=== PATIENT | male | born 1970 | race Caucasian/White ===

== ENCOUNTER → 2018-04-08 14:27 | Outpatient (CLI) | payer OTHER, SELFPAY ==
[2018-04-07 13:42] VITALS: BMI 32.7
== END ==
PROVIDERS: Family Provider Family Medicine; PCP Family Medicine; Referring Provider Physician Assistant; Visit Provider Physician Assistant
DX: J02.9 Acute pharyngitis, unspecified (principal)
CPT/HCPCS: 87081

== ENCOUNTER 2019-05-03 09:31 | Emergency (ER) | payer OTHER, SELFPAY ==
[2018-04-07 13:42] VITALS: BMI 32.7
[2019-05-03 09:32] VITALS: BP 128/79; PULSE 79; RESP 16; TEMP 36.7; O2SAT 95; BMI 30.7
--- NOTE | 2019-05-03 10:10 | EKG12_ITS ---
Test Reason : SYNCOPE Blood Pressure : / mmHG Vent. Rate : 067 BPM Atrial Rate : 067 BPM P-R Int : 182 ms QRS Dur : 074 ms QT Int : 366 ms P-R-T Axes : 038 044 020 degrees QTc Int : 386 ms Normal sinus rhythm Normal ECG Confirmed by SALAZAR SAMUELS, KELIN ([id number]), editor sound LURDES MCKENNA ([id number]) on 05/05/2019 12:21:27 PM Referred By: NOLBERTO Confirmed By:KELIN LINCOLN MD
[2019-05-03 10:19] LABS: Absolute Lymphocyte Count 1.44 X10^3/uL (0.83-4.51); Absolute Neutrophil Count 2.5 X10^3/uL (2.0-7.7); Basophil# 0.05 X10^3/uL; Basophil% 1.1 % (0-1); Eosinophil# 0.11 X10^3/uL; Eosinophils% 2.4 % (0-5); Hematocrit 44.9 % (40-54); Lymphocyte # 1.44 X10^3/ul (4.0); Lymphocyte % 32.1 % (19-41); Mean Corp Hgb Conc 33.4 g/dL (32-36); Mean Corpuscular Hgb 28.4 pg (27.0-32.0); Mean Corpuscular Volume 84.9 fL (80-94); Mean Platelet Vol. 10.2 fl (6.2-12.0); Monocyte# 0.39 X10^3/uL; Monocyte% 8.7 % (0-10); NRBC Flagged by Analyzer 0 % (0-5); Neutrophil # 2.48 X10^3/uL (2.7-7.7); Neutrophil % 55.3 % (47-70); Platelet Count 178 K/mm3 (150-450); RBC Distribution Width CV 12.5 % (11.6-14.6); RBC Distribution Width SD 38.7 fl (35.1-43.9); Red Blood Count 5.29 M/mm3 (4.6-6.2); White Blood Count 4.5 K/mm3 (4.4-11.0)
[2019-05-03] MEDS: 0.9% Normal Saline 1,000 ML 1000 ML IV (10:19)
--- NOTE | 2019-05-03 10:22 | ED.DCSUM_ITS ---
History of Present Illness Chief Complaint: Syncope Informant: Patient Onset: Today Current Severity: - - Resolved Narrative: Patient reports 3 syncopal episodes this morning. 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 Patient states he was standing in the parlor and told 1 of his coworkers that he felt dizzy as if he may pass out. He states next thing he remembers is laying on the ground. Reportedly coworkers tried to sit him up 2 separate times and he passed out again. Patient denies having chest pain or palpitations. He did eat a small amount this morning. He denies any prior history of syncope. - Past Medical History (1) High cholesterol Status: Chronic (2) Vertigo Status: Resolved Past Medical History - Allergies and Home Meds Allergies/Adverse Reactions: Allergies No Known Allergies Allergy (Verified 05/03/19 09:31) Primary Care Physician: Erik Rodriguez MD [Primary Care Provider] - Prior records reviewed: Yes Smoking Status: Never smoker Review of Systems General: Denies: Chills, Fever Eyes: Denies: Visual changes - bilaterally ENT: Denies: Bilateral ear pain, Sore throat Cardiovascular: Denies: Chest pain, Palpitations, Heart racing Respiratory: Denies: Dyspnea, Cough Gastrointestinal: Denies: Abdominal pain, Nausea, Vomiting, Diarrhea Genitourinary: Denies: Dysuria Skin: Denies: Rash Neurological: Denies: Headache, Weakness, Parasthesia Hematologic: Denies: Easy bruising Allergy: Denies: Uticaria Physical Exam Vital Signs/Narrative: Vital Signs Temp Pulse Resp BP Pulse Ox 05/03/19 09:32 98.0 F 79 16 128/79 H 95 Inital Vital Signs reviewed: Yes General: Well nourished, Well developed Head: Normocephalic ENT: Moist mucous membranes Neck: Supple, Nontender Cardiovascular: Regular rate, Regular rhythm Respiratory: No distress, CTA bilaterally Abdomen: Soft, Nontender, Normal bowel sounds Extremities: Nontender Skin: Normal color, No rash Neurological: Alert, Oriented x3, Normal Strength, Normal Sensation Psychological: Normal affect Diagnostic/Tx/Re-eval Laboratory Results 05/03/19 05/03/19 09:55 09:55 WBC 4.5 RBC 5.29 Hgb 15.0 Hct 44.9 MCV 84.9 MCH 28.4 MCHC 33.4 RDW Std Deviation 38.7 RDW Coeff of Arnol 12.5 Plt Count 178 MPV 10.2 Immature Gran % (Auto) 0.400 Neut % (Auto) 55.3 Lymph % (Auto) 32.1 [place] % (Auto) 8.7 Eos % (Auto) 2.4 Baso % (Auto) 1.1 H Absolute Neuts (auto) 2.5 Absolute Lymphs (auto) 1.44 Nucleated RBC % 0 Sodium 141 Potassium 4.0 Chloride 109 H Carbon Dioxide 27.0 Anion Gap 5 BUN 20 H Creatinine 0.94 Estim Creat Clear Calc 100.13 Est GFR (MDRD) Af Amer 108 Est GFR (MDRD) Non-Af 90 BUN/Creatinine Ratio 21.2 H Glucose 85 Calcium 9.3 Troponin I < 0.015 - EKG Initial EKG Interpretation: Sinus Rhythm - Sinus at 67 with no acute ischemia. - Medical Decision Making Patient is given IV fluids here. On repeat evaluation he is resting comfortably. He had no further lightheadedness or dizziness. Has had no ectopy noted on alarm security or surveillance monitor. Orthostatic vital signs will be obtained as long as these are unremarkable patient be discharged to home. He will follow his primary care physician. He is given return instructions. ED Disposition - Plan for ED Patient: Disposition: Home or Assisted Living Diagnosis: Syncope Instructions: SYNCOPE, Unk Cause Referrals: Erik Rodriguez MD [Primary Care Provider] - 3-5 Days
[2019-05-03 10:32] LABS: Anion Gap 5 (5-15); BUN 20 mg/dL (7-18); BUN/Creat Ratio 21.2 RATIO (10-20); Calcium,Total 9.3 mg/dL (8.5-10.1); Chloride 109 mmol/L (98-107); Creatinine, Serum 0.94 mg/dL (0.70-1.30); EST Glomerular Filtration Rate 90 mL/min (>60); Est Glom Filt Rate - Afr Amer 108 mL/min (>60); Estimated Creatinine Clearance 100.13 ml/min; Glucose 85 mg/dL (74-106); Sodium Level 141 mmol/L (136-145)
[2019-05-03 11:31] VITALS: BP 125/90; BP 126/90; BP 128/74; PULSE 54; PULSE 58; PULSE 77
[2019-05-03 12:24] VITALS: BP 120/85; PULSE 78; RESP 16; O2SAT 99
== END 2019-05-03 12:27 | disposition home or self-care (01) ==
PROVIDERS: Emergency Provider Emergency Medicine; PCP Family Medicine
DX: R55 Syncope and collapse (principal); E78.00 Pure hypercholesterolemia, unspecified; Z79.899 Other long term (current) drug therapy
CPT/HCPCS: 80048; 84484; 85025; 93005; 96360; 99285

== ENCOUNTER → 2019-09-29 10:08 | Outpatient (CLI) | payer OTHER, SELFPAY | PROVIDERS: PCP Family Medicine; Visit Provider Orthopaedic Surgery | DX: Z11.59 Encounter for screening for other viral diseases (principal) | CPT/HCPCS: 87635; G2023; U0003 ==

== ENCOUNTER 2020-08-26 11:00 | Outpatient (RCR) | payer OTHER, SELFPAY ==
--- NOTE | 2020-08-26 11:31 | HP.PTDCSUM ---
It has been my pleasure to treat SAL PADILLA referred by Dr. Erik Rodriguez MD, with the diagnosis of Right ankle pain for a total of 8 visit(s). Discharge Date: Please see the following information for a summary of their discharge status. Subjective: Pt reports no improvements at this time R ankle Pain Intensity (Out of 10): 8 % Improvement: 0 Objective/Function: R ankle pain 8/10. R ankle DF ROM 5 degrees. R ankle MMT: 5/5 throughout with exception to eversion= 4+/5. Pt is I with HEP Goal 1:: Increase R dorsiflexion by 8-10 degrees to aid with a normalized gait pattern. Goal Progress: Progressing Goal 2:: Decrease pain by 50% to aid with sleeping throughout the night. Goal Progress: Not Progressing Goal 3:: Decrease pain by 75% to aid with stair negotiation and ambulation. Goal Progress: Not Progressing Goal 4:: Increase R LE strength grossly by 1-2 muscle grades to aid with ADLs. Goal Progress: Goal Met Goal 5:: I with HEP. Goal Progress: Goal Met Plan: RTD secondary to lack of progress If there are questions or concerns regarding this patient's physical therapy, please feel free to call me at [phone]. Thank you for the referral of this patient. Sincerely, Angelo Tucker, PT, ATC
--- NOTE | 2020-08-26 11:31 | HP.PTEVAL ---
Patient's Visit Information SAL PADILLA is a 50 year old M referred to Physical Therapy by Dr. Erik Rodriguez MD with a diagnosis of Right ankle pain. Date of Evaluation: 08/04/20 Physical Therapist: Angelo Tucker, PT, ATC - Visit Plan Frequency: 2x /Week Duration: 4 Weeks Plan: RTD secondary to lack of progress - Subjective Pt. is coming to PT with a dx of R ankle pain from Dr. Rodriguez. He has a hx of n ankle fracture about 15 years ago as well as a R knee meniscus repair in Summer 2019; he twisted his R knee in November 2018 adn then [facility] surgery was in September of 2019. He has some trouble with R knee. He has 2 minor sprains of his R ankle within the past month. He rolled it once getting out of truck and the other was walking in between bryn. 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 When he rolled his ankle, he rolled it both times laterally.He did not have any PT on R knee post-operatively. He notes that over the past year he has become less active due to his surgery, ankle sprains, and COVID-19. He wants to get lose weight to improve his overall heatlh. If sittng all day he has less pain. He has pain when he first gets out of the car or when he first gets up in the morning. He describes his pain as a dull ache. Walking up and down stairs will aggrivate his pain. He gets woken up from sleep with pain. He has numbness and tingling that will go along the lateral portion of his foot. He has high arches and wears inserts but hasnt gotten a new pair since the origionals 15 years ago. - Pain R ankle Pain Intensity (Out of 10): 8 Pain Intensity Range: 0, 7 - Objective Neuro: Sensation slightly decreased on lateral aspect of R foot; patellar tendon reflex 1/3 bilaterally. MMT: Hip flex 4+/5 B; knee flex: 4+/5 R; 5/5 L; knee ext: 4+/5 R, L 5/5; L ankle DF: 5/5 R ankle DF: 4+/5; L inv: 5/5 R inv: 4+/5 L eversion: 5/5 R eversion: 4/5. ROM: L DF: 8 degrees R DF: -1 degrees L inversion: 41 degrees R inverison: 35 degrees L eversion: 11 degrees R eversion: 20 degrees. Girth: figure 8 measurement: L side is 59 cm; R side is 64.5 cm. Ambulation: 6/10 walking but no antalgic gait demonstrated. both feet are modersatly supinated with gait. Stairs: he was able to go up with reciprocol gait pattern with no UE support , he had increased pain 6/10 with descending stairs. - Goals Goal 1:: Increase R dorsiflexion by 8-10 degrees to aid with a normalized gait pattern. Goal Time Frame: 2-4 Weeks Goal 2:: Decrease pain by 50% to aid with sleeping throughout the night. Goal Time Frame: 2-4 Weeks Goal 3:: Decrease pain by 75% to aid with stair negotiation and ambulation. Goal Time Frame: 4-6 Weeks Goal 4:: Increase R LE strength grossly by 1-2 muscle grades to aid with ADLs. Goal Time Frame: 4-6 Weeks Goal 5:: I with HEP. Goal Time Frame: 4-6 Weeks - Rehabilitation Potential Physical Therapy Diagnosis: Pain, weakness and decreased ROM secondary to R ankle pain. He appears to have a minor R lateral ankle sprain with moderately increased swelling and inflammation. Rehabilitation Potential: Good - Anticipated Interventions Thank you for the opportunity to evaluate your patient. For Medicare and Medicare HMO plans, please review the plan of care and approve it. It will need to be FAXED BACK to us at [phone] for Medicare purposes. For Medicare only, by signing this I certify the plan of care. Please let me know if there are questions or concerns regarding this plan of care. Physician Signature: Date:
== END 2020-08-26 19:00 | disposition home or self-care (01) ==
LOC: PT 11:00
PROVIDERS: PCP Family Medicine; Referring Provider Family Medicine; Visit Provider Family Medicine
DX: M25.571 Pain in right ankle and joints of right foot (principal)
CPT/HCPCS: 97035; 97110; 97161; 97164

== ENCOUNTER → 2020-10-06 17:47 | Outpatient (CLI) | payer OTHER, SELFPAY ==
--- NOTE | 2020-10-06 17:58 | MRI_ITS ---
STUDY: MRI RIGHT ANKLE WITHOUT CONTRAST REASON FOR EXAM: Lateral right ankle pain for 3 months, right ankle/foot swelling, numbness. TECHNIQUE: Standardized fat and water weighted pulse sequences were obtained in all 3 orthogonal planes. COMPARISON: None. FINDINGS: There is edema in the lateral subcutis adipose space. There is fluid in the retromalleolar and submalleolar posterior tibialis and flexor digitorum longus tendon sheaths (inversion recovery sagittal images 17-19). The posterior tibialis and flexor digitorum longus tendons are morphologically normal. There is fluid in the flexor hallucis longus tendon sheath proximal and distal to the sustentaculum mariam (inversion recovery sagittal images 14, 15). There is fluid with septations in the retromalleolar and submalleolar peroneal tendon sheath (inversion recovery sagittal images 3-8) suggestive of sclerosing tenosynovitis with reactive bone edema in the lateral calcaneus including the peroneal tubercle (T2 coronal images 12-15). There is also fluid in the distal peroneus longus tendon sheath (T2 coronal images 22-29). There is tendinosis of the peroneus longus and brevis tendons with longitudinal splits of the perimalleolar peroneal tendons (T2 axial images 16-21). Normal tibialis anterior tendon. Normal extensor hallucis longus tendon. Normal extensor digitorum longus tendons. Normal Achilles tendon and teno-osseous insertion. Normal plantar fascia. Normal plantar calcaneal tubercles. Normal intrinsic muscles of the rearfoot. Normal distal tibiofibular syndesmotic ligamentous complex. Normal lateral ligamentous complex. Normal subtalar ligaments and sinus tarsi. Normal deltoid ligamentous complexes. Normal plantar calcaneonavicular (spring) ligament. Normal tibiotalar articulation. Normal talar dome. Normal subtalar articulations. Normal talonavicular articulation. Normal calcaneocuboid articulation. Normal navicular-cuneiform articulations. 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 Tenosynovitis of the flexor tendons. Electronically Signed: Ari Young MD at 9:41 EDT Tel , Service support ,
== END ==
PROVIDERS: PCP Family Medicine; Referring Provider Podiatrist; Visit Provider Podiatrist
DX: S96.811A Strain of other specified muscles and tendons at ankle and foot level, right foot, initial encounter (principal)
CPT/HCPCS: 73721

== ENCOUNTER → 2020-12-03 14:17 | Outpatient (CLI) | payer OTHER, SELFPAY ==
[2020-12-03 15:24] LABS: Absolute Lymphocyte Count 2.25 X10^3/uL (0.83-4.51); Absolute Neutrophil Count 3.7 X10^3/uL (2.0-7.7); Basophil# 0.07 X10^3/uL; Eosinophil# 0.15 X10^3/uL; Eosinophils% 2.2 % (0-5); Hematocrit 45.6 % (40-54); Hemoglobin 15.2 g/dL (13.0-16.5); Lymphocyte # 2.25 X10^3/ul (0.83-4.51); Lymphocyte % 33.3 % (19-41); Mean Corp Hgb Conc 33.3 g/dL (32-36); Mean Corpuscular Hgb 28.5 pg (27.0-32.0); Mean Corpuscular Volume 85.4 fL (80-94); Mean Platelet Vol. 11.3 fl (6.2-12.0); Monocyte% 8.9 % (0-10); NRBC Flagged by Analyzer 0 % (0-5); Neutrophil # 3.66 X10^3/uL (2.7-7.7); Neutrophil % 54.2 % (47-70); Platelet Count 219 K/mm3 (150-450); RBC Distribution Width CV 13.1 % (11.6-14.6); RBC Distribution Width SD 40.8 fl (35.1-43.9); Red Blood Count 5.34 M/mm3 (4.6-6.2); White Blood Count 6.8 K/mm3 (4.4-11.0)
[2020-12-03 16:01] LABS: ALB/GLOB Ratio 1.1 RATIO (0.9-2.4); AST(SGOT) 20 U/L (15-37); Alanine Aminotransfer ALT/SGPT 53 U/L (16-61); Albumin, Serum 3.9 g/dL (3.2-5.0); Alkaline Phosphatase 91 U/L (45-117); Anion Gap 7 (5-15); BUN 17 mg/dL (7-18); BUN/Creat Ratio 19.3 RATIO (10-20); Chloride 107 mmol/L (98-107); Creatinine, Serum 0.88 mg/dL (0.70-1.30); EST Glomerular Filtration Rate 96 mL/min (>60); Est Glom Filt Rate - Afr Amer 117 mL/min (>60); Globulin 3.6 g/dL (2.2-4.2); Glucose 90 mg/dL (74-106); Potassium 3.7 mmol/L (3.5-5.1); Protein, Total 7.5 g/dL (6.4-8.2); Sodium Level 139 mmol/L (136-145)
== END ==
PROVIDERS: PCP Family Medicine; Visit Provider Family Medicine
DX: Z01.818 Encounter for other preprocedural examination (principal)
CPT/HCPCS: 36415; 80053; 85025

== ENCOUNTER 2020-12-10 05:52 | Day surgery (SDC) | payer OTHER, SELFPAY ==
[2020-12-10] VITALS (12 sets, daily range): BP systolic 131–151; BP diastolic 71–97; PULSE 64–88; RESP 16; TEMP 35.6–36.6; O2SAT 94–99; BMI 33.5
[2020-12-10] MEDS: Lactated Ringers 1,000 ML 100 ML IV ×3 (06:27→11:30)
[2020-12-10] MEDS: Cefazolin 2 GM in 0.9% Normal Saline 100 ML IV (07:23)
--- NOTE | 2020-12-10 07:30 | RAD_ITS ---
STUDY: X-RAY - RIGHT FOOT CLINICAL: Male, 50 years old. FOOT PERONEAL TENDON REPAIR DEBRIDE, CALCANEOUS OSTEOTOMY,1ST METATARSAO OSTEOTOMY TECHNIQUE: 2 view(s) of the foot. COMPARISON: None. FINDINGS: 43 seconds of fluoroscopy of the right foot was utilized the operating room during foot surgery and 6 images are cemented for interpretation.. RAD/Foot 2 Views IMPRESSION: Fluoroscopy during surgery. Electronically Signed: Lorenzo Chun MD at 12:18 EDT Tel , Service support ,
--- NOTE | 2020-12-10 07:30 | TESH_PTH ---
PATIENT: SAL [place]AD[place]AL [place] [facility] [place][id number] AGE/SX: 50/M ROOM: RE12/10/[address]: Dr. Edmond Hutchinson DPM : [id number] BED: DIS: 12/10/2020 SPEC #: [id number] RECD: 12/10/20 13:51 STATUS: JOSE REHyun #: [id number] JEANNINE: 12/10/20 07:[address]: Edmond Hutchinson DEPT: SURGICAL PATHOLOGY RECD BY: Roberto Vela ENTERED: 12/14/20 09:02 SP TYPE: TENDON OTHR DR: Dr. Erik Rodriguez MD Tissues: Tendon and tendon sheath, NOS Procedures: Surgery Specimen Level III HEADER OPERATION: Peroneal tendon repair and debridement PRE-OP DIAGNOSIS: Peroneal tendon tear TISSUE SUBMITTED: Debrided peroneal tendon MICROSCOPIC DIAGNOSIS Debrided peroneal tendon: Reactive and reparative change. Fragments of bone and cartilage with no pathologic change. AM:am 12/15/20 MICROSCOPIC DESCRIPTION Slides are reviewed. GROSS DESCRIPTION Received is one container labeled with the patient name and designated Debrided peroneal tendon. The specimen consists multiple irregular fragment of light parker-white gritty soft tissue that measures 6 x 5 x 0.5cm. Menu Planner portions are submitted in one cassette./AM:am 12/14/20 TC:5 CPT: 75134
--- NOTE | 2020-12-10 07:32 | DCINST_ITS ---
Discharge Instructions Diet Discharge Diet: Light diet - advance as tolerated Activity Discharge Activity: May Not Drive and Use Crutches Weight Bearing Status: No weight bearing (No weightbearing right foot/ankle. Do not put weight on right foot or ankle.) Keep extremity elevated above heart level: Right Leg (Keep right foot elevated with pillows and pressure off of heel for at least 50 minutes of every hour.) Additional Activity Instructions:: Do gentle range of motion to knee and hip for a minute or two every hour to help with circulation. Dressing / Incision Call your doctor if your incision/area has: Continuous Slow Oozing, Sudden Increased Bleeding and Foul Smelling Discharge Call your doctor if you observe: Fever of 101 or Higher, Shortness of breath, Chest pain, Increased palpitations (irregular heartbeat), Calf discomfort and Uncontrolled pain Change Dressing in: leave in place till F/U Remove Dressing in: leave in place till F/U Cleanse incision/area with: Do not get Incision Wet Follow Up Care Please Follow Up With: Edmond Hutchinson DPM When: Follow up next week in office at [facility], call sooner if needed. Page Dr. Hutchinson over weekend if needed through [facility]: [phone] Test Results: Test results from this visit will be discussed in further detail at your follow-up appointment, if applicable. Discharge Plan Admission Attending Provider: Edmond Hutchinson Primary Care Provider: Erik Rodriguez Discharge Orders/Prescriptions Prescriptions: New Eliquis 2.5 mg tablet 2.5 mg PO Q12H Qty: 60 RF: 0 oxycodone-acetaminophen [Percocet] 5-325 mg tablet 1 - 2 tab PO Q6H PRN (Reason: pain) 5 Days Qty: 30 RF: 0 amoxicillin-pot clavulanate [Augmentin] 500-125 mg tablet 1 tab PO Q12H Qty: 14 RF: 0 Continued atorvastatin 20 MG tablet 20 mg PO QHS RF: 0 Referrals / Follow Up: Erik Rodriguez MD [Primary Care Provider] - Disposition Disposition (needs filled in before D/C Order can be placed): Home, Self Care
--- NOTE | 2020-12-10 11:24 | RAD_ITS ---
STUDY: X-RAY - RIGHT FOOT CLINICAL: Male, 50 years old. post op TECHNIQUE: 3 view(s) of the foot. COMPARISON: None. FINDINGS: Status post osteotomy of the posterior body of the calcaneus with fixation with 2 screws. Normal visualized subtalar, talonavicular, calcaneocuboid, tarsal and tarsometatarsal articulations. Status post osteotomy and fixation of the proximal shaft of the first metatarsal bone with a medial plate and screws. Normal metatarsophalangeal joint of the great toe. Normal tibial and fibular sesamoid bones. Normal interphalangeal joint of the great toe. Normal phalanges of the great toe. Normal second through fifth metatarsophalangeal joints. Normal interphalangeal joints and phalanges of the lesser toes. Fiberglass cast obscures soft tissue and bony detail. RAD/Foot min 3 Views IMPRESSION: Postsurgical changes. Electronically Signed: Lorenzo Chun MD at 12:19 EDT Tel , Service support ,
--- NOTE | 2020-12-10 11:24 | RAD_ITS ---
STUDY: X-RAY - RIGHT CALCANEUS REASON FOR EXAM: Male, 50 years old. post op TECHNIQUE: 2 view(s) of the calcaneus were obtained. COMPARISON: None. FINDINGS: Status post open reduction internal fixation of fracture or osteotomy of the posterior body of the calcaneus with 2 screws. RAD/Calcaneus min 2 Views IMPRESSION: Post surgical changes. Electronically Signed: Lorenzo Chun MD at 12:17 EDT Tel , Service support ,
--- NOTE | 2020-12-10 11:28 | PCM.OPRPT ---
Report of Operation Date of Procedure: 12/10/20 Pre-Operative Diagnosis: Peroneal tendinopathy with tear, right Pes cavus deformity, right Calcaneal varus deformity, right Plantarflexed 1st ray, right foot Post-Operative Diagnosis: Same Surgery/Procedure Performed:: 1. Peroneal tendon debridement and repair with tenodesis, right 2. Calcaneal osteotomy (Jean), right 3. 1st metatarsal osteotomy (dorsiflexory), right Surgeon: Edmond Hutchinson director of land acquisition: Dr. Bhat Type of Anesthesia: General and Local Specimen's removed: Debrided peroneal tendons, sent to pathology Estimated Blood Loss (mL): 70mL Description of Procedure: Indictions: This is a 50-year-old gentleman who has had chronic right lateral ankle pain despite nonsurgical treatment. Pain is along the peroneal tendons. MRI shows significant peroneal tendinopathy with tearing of the peroneus brevis tendon. He has significant anterior and posterior pes cavus deformity with calcaneal varus. This has really affected his activity level. He relates he is not able to be as active as he would like to be. He has elected to proceed with surgical intervention. We discussed the procedures in great detail, he agreed. All alternative options were reviewed with him as well. All of the risks and potential complications were discussed with him. The goals of the operative procedure were discussed with him as well. He expressed understanding and agreement. This was discussed with him at length on several occasions. He understands the goals, expectations as well as the risks and possible complications. The consent forms were reviewed with him and he freely signed them. No guarantees were given nor implied. No warranties were given. Patient was cleared for surgery from neurosurgery and medical standpoint. I did speak with his neurosurgery at [facility] team Nina Callahan CNP for Dr. Mae (patient with hx of brain aneurysm) and they have given the ok to proceed with this foot surgery and ok to proceed with post operative anticoagulation medication DVT prophylaxis Eliquis. Operative Procedure: The patient received and right lower extremity nerve block per the anesthesia team pre operatively. The patient was brought back into the operating room and was placed on to the operating room table in the supine position. A time-out was performed and the patient was properly identified and surgical plan was confirmed. The patient did receive antibiotic prophylaxis for this procedure, 2 g of intravenous cefazolin. The patient did receive general anesthesia. A well-padded pneumatic tourniquet was applied around the right thigh. The right lower extremity was scrubbed, prepped and draped in the usual aseptic fashion. Further attention was directed to the right foot. There was noted to be edema overlying the peroneal tendons, there was calcaneus varus, there was plantarflexed 1st ray and there was pes cavus deformity - which was rigid. The right foot was elevated for 3 minutes and the right pneumatic tourniquet on the thigh was inflated to 300 mmHg. Further attention was directed to the right foot and ankle. Calcaneal osteotomy: Attention was directed to the lateral calcaneus and a linear longitudinal skin incision was made in an oblique linear fashion overlying the lateral calcaneal wall from proximal posterior to distal anterior. Careful blunt dissection was completed through the subcutaneous tissue layer to the lateral calcaneal wall. It is important to note that all vital structures to the area were all carefully identified, protected and retracted out of the way. The periosteum was carefully freed up at the lateral aspect of the planned calcaneal osteotomy. Using a sagittal saw, a wedge osteotomy was completed to the lateral aspect of the calcaneus with the base lateral and the apex medial, and also leaving the medial cortex intact. This was done using a combination of a powered sagittal saw and an osteotome. This osteotomy went from proximal posterior to distal anterior to the calcaneal wall through the body of the calcaneus. The wedge of bone was removed. The posterior calcaneus fragment was rotated and closed down out of varus, and was fixated with 2 x 7.0mm Arthrex headless cannulated screws, placed across the osteotomy site using rigid open reduction and internal fixation technique. In order for screws placement a small linear skin incision was made to the posterior aspect of the calcaneus with careful blunt dissection completed to the subcutaneous tissue layer. At this time, the osteotomy site was very stable. The fixation and osteotomy were stable and rigid. The site was checked via intra operative fluoroscopy and this confirmed reduction of the calcaneal deformity with proper placement of the osteotomy and fixation. There was noted to be good bone to bone contact clinically and the osteotomy site was very stable in reduced position. The incision sites were flushed out with copious amounts of normal saline solution. The subcutaneous tissue layer was carefully reapproximated using 3-0 Vicryl. The skin was carefully reapproximated using 3-0 Monocryl. Peroneal tendon debridement/repair: Attention was directed to the lateral ankle and hindfoot at the level of the peroneal tendons. A skin incision was made over the peroneal tendons of the lateral ankle and hindfoot. Careful dissection was completed down to the superior and inferior peroneal tendon retinaculum which were incised. The peroneal tendon sheath was incised. There was noted to be severe peroneal tedinopathy. There was complete rupture of the peroneus brevis tendon, with a very large gap in between the proximal and distal ends. The proximal end of the tendon was very bulbus. There was significant tenosynovitis present. There was significant thickening yellowing and degeneration of the tendon ends. The peroneus longus tendon was intact with no visual tears, but noted to have tendinosis and thickening at level just proximal to the lateral malleolus. The tendinosis and degenerative tissue was debrided using a 15 blade and was sent to pathology as specimen. This was debrided down as healthy tendon as possible. Due to the large gap between the ends of the peroneus brevis tendon the remaining tendon was tenodesed to the peroneus longus tendon to the appropriate tension. The surgical site was flushed out with copious amounts of normal saline solution. The peroneal tendons were placed back into proper position. The superior and inferior peroneal retinaculum were reapproximated using 0 and 2-0 Prolene. The subcutaneous tissue was reapproximated using 3-0 Vicryl. The skin was reapproximated using 3-0 Monocryl. 1st metatarsal osteotomy: The foot was loaded and there was improvement in overall foot position with the calcaneal osteotomy, however there was noted to be significant rigid plantarflexed 1st ray creating continued residual deformity. Tt was decided to proceed forward with the 1st metatarsal osteotomy. At this time, a linear longitudinal skin incision was made using #15 scalpel blade over the dorsal aspect of the 1st metatarsal. This was made just medial to the extensor hallucis longus tendon. Careful blunt dissection was completed down to the dorsal aspect of the proximal 1st metatarsal. A wedge osteotomy was completed through the 1st metatarsal at the proximal level, leaving the plantar cortex intact. The base of the wedge was dorsal and the apex plantar. The edge of bone was removed. The distal 1st metatarsal was carefully dorsiflexed reducing the deformity, and it was fixated medially using one Arthrex T plate and 6 Arthrex locking screws, and 1 cortical screw via rigid open reduction and internal fixation technique. The site was very stable, and there was excellent bone to bone contact on visualization. The 1st metatarsal cuneiform joint was checked and it was confirmed the screws were no in the joint. This was confirmed with intra operative flouroscopy. The site was flushed out with copious amounts of normal saline solution. The subcutaneous tissue layer was carefully reapproximated using 3-0 Vicryl. The skin was carefully reapproximated using 3-0 Monocryl. At this time, the foot was checked and visualized. It was noted that there was reduction of the previous calcaneal varus and plantarflexed 1st ray deformity. Heel alignment was excellent with the foot loaded. The foot was in rectus position. There was good smooth range of motion of the hindfoot and ankle joint. There was no gastrocsoleus equinus so the recession was not needed. Again, there was a normal amount of dorsiflexion present at the ankle level with both the knee extended and flexed as already noted above. Intraoperative fluoroscopy was used throughout the above operative procedure as needed, which confirmed proper alignment of the foot, osteotomy alignment, and placement of the hardware. It should be noted that at the 2-hour nina (120 minutes) of the tourniquet being inflated, it was deflated immediately at that time. The tourniquet was down for 5-6 minutes, then the right lower extremity was again elevated for esanguination as well as using a esmarch bandage and the right thigh pneumatic tourniquet was again re-inflated to 300mmHg for a total of 37 minutes. The pneumatic tourniquet was again deflated, and there was again normal return of warmth and perfusion to the right foot and to all 5 toes in the right foot with normal temperature gradient present, which remained throughout the rest of the procedure and at the end of operative procedure. Hemostasis was achieved prior to incision closure. All vital structures, including all vital neurovascular structure were properly identified and protected/retracted carefully as needed during the procedures. The patient tolerated the above operative procedures well and the anesthesias well with no complications. A dressing was applied which consisted of Steri-Strips across the incision sites after Cavilon was painted to the skin edges. Adaptic soaked in Betadine was applied, an overlying gauze, Kerlix, Webril and Igor bandages were applied. Then a daqjc-yrp-jsal posterior splint was applied as well secured with Igor bandages. He was transported from the operating room to the recovery room with vital signs stable and in good conditions. Postoperative orders were placed. Postoperative instructions were reviewed with him in great detail as well as with his who is with him today. He will be discharged home with pain medication, Percocet 5 mg/325 mg tablets 1-2 tablets by mouth every 6 hours as needed for pain. Also Eliquis 2.5mg PO q 12 hours was prescribed for DVT prophylaxis. Augmentin 500/125mg tab - 1 tab PO q 12 hours was prescribed post operatively for antibiotic prophylaxis. He was instructed to keep the right foot elevated for at least 50 minutes of every hour and to remain nonweightbearing at all times to the right foot. Keep dressing clean, dry and intact. He is to follow up within 1 week or sooner if needed. His parents were present for discussion on post op instructions as well. Also of note post operative labs were obtained H+H as well as INR/PT/PTT and they were noted to be normal. Also post operative right foot and calcaneal xrays were obtained and reviewed. These confirmed the above with no complication. Grafts/Implants Used: 2 x 7.0 cannulated Arthrex screws, 1 Arthrex plate and screws Complications None
[2020-12-10 12:04] LABS: Hematocrit 45.1 % (40-54); Hemoglobin 15.1 g/dL (13.0-16.5)
[2020-12-10 12:15] LABS: Prothrombin Time (Protime)PT. 12.3 SECONDS (11.7-14.9)
[2020-12-10 12:16] LABS: Partial Thromboplast Time 22.2 Seconds (24.1-36.2)
--- NOTE | 2020-12-10 12:16 | SUR.PHASEI ---
Nausea post-op. Treating with PACU orders. Zofran 4mg, 30 minutes later given benadryl/ reglan. See PACU orders
--- NOTE | 2020-12-10 13:04 | SUR.PHASEI ---
Dr. Hutchinson at bedside in PACU. Patient is able to wiggle toes on right foot. Warm to touch. Cap refill <3 seconds.
== END 2020-12-10 15:05 | disposition home or self-care (01) ==
LOC: SDC 06:00 → AC 06:28
PROVIDERS: PCP Family Medicine; Referring Provider Podiatrist; Visit Provider Podiatrist
PROC: (CPT 27658; principal; 2020-12-10 07:15)
DX: M21.171 Varus deformity, not elsewhere classified, right ankle (principal); S86.391D Other injury of muscle(s) and tendon(s) of peroneal muscle group at lower leg level, right leg, subsequent encounter; X58.XXXD Exposure to other specified factors, subsequent encounter; M21.6X1 Other acquired deformities of right foot; M24.571 Contracture, right ankle; E78.5 Hyperlipidemia, unspecified; M19.90 Unspecified osteoarthritis, unspecified site; E78.00 Pure hypercholesterolemia, unspecified; Z79.899 Other long term (current) drug therapy; M66.871 Spontaneous rupture of other tendons, right ankle and foot
CPT/HCPCS: 27658; 28300; 64447; 73620; 73630; 73650; 76000; 85014; 85018; 85610; 85730; 88304; C1713; J7120; J2405

== ENCOUNTER → 2020-12-28 11:58 | Outpatient (CLI) | payer OTHER, SELFPAY ==
[2020-12-28 15:19] LABS: Absolute Lymphocyte Count 2.34 X10^3/uL (0.83-4.51); Absolute Neutrophil Count 3.5 X10^3/uL (2.0-7.7); Basophil# 0.07 X10^3/uL; Eosinophil# 0.13 X10^3/uL; Eosinophils% 1.9 % (0-5); Hematocrit 46.4 % (40-54); Hemoglobin 15.3 g/dL (13.0-16.5); Lymphocyte # 2.34 X10^3/ul (0.83-4.51); Lymphocyte % 34.7 % (19-41); Mean Corpuscular Hgb 28.1 pg (27.0-32.0); Mean Corpuscular Volume 85.1 fL (80-94); Mean Platelet Vol. 12.1 fl (6.2-12.0); Monocyte# 0.67 X10^3/uL; Monocyte% 9.9 % (0-10); NRBC Flagged by Analyzer 0 % (0-5); Neutrophil # 3.51 X10^3/uL (2.7-7.7); Neutrophil % 52.2 % (47-70); Platelet Count 244 K/mm3 (150-450); RBC Distribution Width CV 12.9 % (11.6-14.6); RBC Distribution Width SD 39.7 fl (35.1-43.9); Red Blood Count 5.45 M/mm3 (4.6-6.2); White Blood Count 6.7 K/mm3 (4.4-11.0)
[2020-12-28 15:40] LABS: AST(SGOT) 22 U/L (15-37); Alanine Aminotransfer ALT/SGPT 53 U/L (16-61); Albumin, Serum 3.8 g/dL (3.2-5.0); Alkaline Phosphatase 102 U/L (45-117); Anion Gap 5 (5-15); BUN 14 mg/dL (7-18); BUN/Creat Ratio 16.3 RATIO (10-20); Calcium,Total 9.4 mg/dL (8.5-10.1); Chloride 105 mmol/L (98-107); Creatinine, Serum 0.86 mg/dL (0.70-1.30); EST Glomerular Filtration Rate 99 mL/min (>60); Est Glom Filt Rate - Afr Amer 120 mL/min (>60); Globulin 3.9 g/dL (2.2-4.2); Glucose 94 mg/dL (74-106); Potassium 4.2 mmol/L (3.5-5.1); Protein, Total 7.7 g/dL (6.4-8.2); Sodium Level 137 mmol/L (136-145)
== END ==
PROVIDERS: Visit Provider Podiatrist
DX: S86.311A Strain of muscle(s) and tendon(s) of peroneal muscle group at lower leg level, right leg, initial encounter (principal)
CPT/HCPCS: 36415; 80053; 85025

== ENCOUNTER 2021-05-24 13:01 | Outpatient (CLI) | payer OTHER, SELFPAY ==
--- NOTE | 2021-05-24 13:50 | RAD_ITS ---
STUDY: BONE LENGTH STUDY OF LOWER EXTREMITY REASON FOR EXAM: Male, 50 years old. Tibial Varus Deformity. TECHNIQUE: A single frontal view of the lower pelvis, femurs and lower leg were obtained on 1 image. COMPARISON: None. FINDINGS: Minimal tibial varus deformities. Mild arthrosis of the hips and both knees. Right lower extremity: Distance from the acetabular rim to the medial femoral condyle is 53 cm. Distance from the medial femoral condyle to the tibiotalar joint is 39.5 cm. Total distance from the acetabular rim to the tibiotalar joint is 92.5 cm. Left lower extremity: Distance from the left acetabular rim to the medial tibiotalar joint is 52.5 cm. Distance from the medial femoral condyle to the tibiotalar joint is 39.5 cm. Total distance from the acetabular rim to the tibiotalar joint is 92 cm. RAD/Bone Length IMPRESSION: Minimal leg length discrepancy as described with the right leg 0.5 cm longer than the left. Electronically Signed: Jad Siddiqui MD at 9:55 EST ,
== END 2021-05-24 23:59 | disposition home or self-care (01) ==
PROVIDERS: PCP Family Medicine; Referring Provider Podiatrist; Visit Provider Podiatrist
DX: M21.161 Varus deformity, not elsewhere classified, right knee (principal); M21.162 Varus deformity, not elsewhere classified, left knee
CPT/HCPCS: 77073

== ENCOUNTER 2021-07-11 11:00 | Outpatient (RCR) | payer OTHER, SELFPAY ==
--- NOTE | 2021-06-15 18:25 | HP.PTEVAL ---
Patient's Visit Information SAL PADILLA is a 50 year old M referred to Physical Therapy by Dr. Edmond Hutchinson DPM with a diagnosis of s/p peroneal tendon debridement/repair, calcaneal/1st met osteotomy 12-10-20. Date of Evaluation: 06/07/21 Physical Therapist: BALAJI Olivo - Visit Plan Frequency: 2-3x /Week Duration: 4 Weeks Plan: 2-3X/ week for 4 weeks for R ankle AROM, stretching, strengthening, gait training with HEP. Will call Dr for additional clarification on progression and brace wear when able. HEP: DF with towel stretch, seated heel and toe raises, and seated toe crunches - Subjective Pt had R foot surgery in Dec 10, 2020. In September of 2019 he had R knee surgery (double torn meniscus and arthritis removal) and had rehab [place]. He had screws and plate put in his foot and tore tendons on the R side and one was not able to be fixed and only has only one tendon on the outside of his foot. The surgical part had gone well but he still had swelling and bruising and walking on the outside of his feet. He was NWB until Apr from the time of the surgery. When he started walking he is weaking and outside of shoe ankle brace and wear orthopedic shoes. The Dr is concerned that he is bow legged and trying to see if foot or knee issue and wants to see if PT helps to walk square. He can not run, he can barely walk. He still has a lot of pain in his knee and foot and has gained weight through this process. He was active before the surgery. He has stairs at home and he goes up them 2 feet to a step with a railing because it has a lot of pain on the R side knee down to foot. He has no pain with sitting. Pain with walking and he can walk but not far without the pain. It is easier to push kids around in a stroller. 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 He is sleeping average... at times he wakes up with pain and has numbness in his foot along the top and sides of his foot. He has no back pain. He called the Dr this morning about nodules above the ankle which is a new symptom. They are talking about a fusion surgery of the foot but want to determine if knee or ankle causing the issue. - Pain R foot pain Pain Intensity (Out of 10): 0 Pain Intensity Range: 6 Comment: with walking R knee pain Pain Intensity (Out of 10): 0 Pain Intensity Range: 5 - Objective Gait: Walks with external over the shoe brace and walks on the outside of his R foot with bowed R leg and instability of the R knee and weakness of the hip as well. Pt struggles with moving R foot into eversion in standing. R medial to lateral mal 27, Figure 8 57, met heads 25.4. R ankle AROM: DF -2 degrees from neutral, 34 degrees PF, 1 degree Eversion, 4 degree INV. PROM R INV hurts more than EV. When patient pulls R foot into DF he also goes into INV. LE MMT: R hip abd 4-/5 and L 4+/5, R hip ext 4-/5 and L hip ext 4/5, R hip flex 4/5 and L 4+/5,. Pt is able to stand on his R with his hands on the hallway rail. Pt is able to stand up on heels and toes with the use of the chair rail. - Balance/Special Test Scores Lower Extremity Functional Score: 23 - Goals Goal 1:: I HEP Goal Time Frame: 4-6 Weeks Goal 2:: Increase L ankle AROM to 5 degrees DF and 10 degrees INVand 5 EV Goal Time Frame: 4-6 Weeks Goal 3:: Walk with less weight on the lateral side of his L foot. Goal Time Frame: 4-6 Weeks Goal 4:: Be able to Single leg balance for 10 seconds on the L - Rehabilitation Potential Rehabilitation Potential: Good - Anticipated Interventions Patient/Client Instruction: Educate patient on: Condition, Plan of Care For the Purpose of:: To decrease pain, To decrease swelling/inflammation, To increase ROM, To improve nutrient delivery to tissue, To improve muscle performance and motor function, To improve ability to perform ADL's, To increase tolerance to activity/condition/position, To improve performance and independence with ADL's, To decrease level of supervision to perform tasks, To improve ability of physical actions for home/community/work/leisure, To improve gait and locomotor functions, To improve health of tissue, To decrease soft tissue restriction, To increase flexibility/ROM, To improve safety with gait Therapeutic Exercise to Include: Strength training, Balance training, Coordination, Flexibilty training, Gait and locomotor training, Neuromotor development, Passive ROM, Active ROM For the Purpose of:: To decrease pain, To decrease swelling/inflammation, To increase ROM, To improve nutrient delivery to tissue, To improve muscle performance and motor function, To improve ability to perform ADL's, To increase tolerance to activity/condition/position, To improve performance and independence with ADL's, To decrease level of supervision to perform tasks, To improve ability of physical actions for home/community/work/leisure, To improve gait and locomotor functions, To improve health of tissue, To decrease soft tissue restriction, To increase flexibility/ROM, To improve endurance, To improve balance, To improve safety with gait Functional Training to Include: Gait training For the Purpose of:: To improve gait and locomotor functions, To improve safety with gait, To assume or resume ADL's Manual Therapy Techniques to Include: Mobilization, Passive ROM For the Purpose of:: To increase ROM, To improve nutrient delivery to tissue, To improve muscle performance and motor function, To increase tolerance to activity/condition/position, To improve gait and locomotor functions, To improve health of tissue, To decrease soft tissue restriction Thank you for the opportunity to evaluate your patient. For Medicare and Medicare HMO plans, please review the plan of care and approve it. It will need to be FAXED BACK to us at [phone] for Medicare purposes. For Medicare only, by signing this I certify the plan of care. Please let me know if there are questions or concerns regarding this plan of care. Physician Signature: Date:
--- NOTE | 2021-10-04 08:49 | HP.PTDCSUM ---
It has been my pleasure to treat SAL PADILLA referred by Dr. Edmond Hutchinson, DPM, with the diagnosis of s/p peroneal tendon debridement/repair, calcaneal/1st met osteotomy 12-10-20 for a total of 8 visit(s). Discharge Date: Please see the following information for a summary of their discharge status. Subjective: Patient mentions that he has increased soreness, potentially from driving 6 hours over the weekend, or standing. He says he couldn't really do his HEP this weekend. R foot pain Pain Intensity (Out of 10): 3 R knee pain Pain Intensity (Out of 10): 1 L knee Pain Intensity (Out of 10): 1 LB Pain Intensity (Out of 10): 3 Objective/Function: Patient has increased pain and soreness this session secondary to increased activity over the weekend. He demonstrated minor difficulty doing the BAPS board in the standing position. Patient is seeing the DrMelany tomorrow and is eager to hear what the next steps for him are. Patient said he felt about the same after this session. Goal 1:: I HEP Goal 2:: Increase L ankle AROM to 5 degrees DF and 10 degrees INVand 5 EV Goal 3:: Walk with less weight on the lateral side of his L foot. Goal 4:: Be able to Single leg balance for 10 seconds on the L Plan: 2-3X/ week for 4 weeks for R ankle AROM, stretching, strengthening, gait training with HEP. Will call Dr for additional clarification on progression and brace wear when able If there are questions or concerns regarding this patient's physical therapy, please feel free to call me at [phone]. Thank you for the referral of this patient. Sincerely, Ning Melgar, MPT Balance/Gait/Functional tests - Balance/Special Test Scores Lower Extremity Functional Score: 23
== END 2021-07-11 19:00 | disposition home or self-care (01) ==
LOC: PT 11:00
PROVIDERS: PCP Family Medicine; Referring Provider Podiatrist; Visit Provider Podiatrist
DX: M25.371 Other instability, right ankle (principal); Z47.89 Encounter for other orthopedic aftercare
CPT/HCPCS: 97110; 97162

== ENCOUNTER → 2021-08-02 | Outpatient (CLI) | payer OTHER, SELFPAY ==
[2021-08-02 10:56] LABS: ALB/GLOB Ratio 1.1 RATIO (0.9-2.4); AST(SGOT) 20 U/L (15-37); Alanine Aminotransfer ALT/SGPT 55 U/L (16-61); Albumin, Serum 3.8 g/dL (3.2-5.0); Alkaline Phosphatase 94 U/L (45-117); Anion Gap 3 (5-15); BUN 13 mg/dL (7-18); BUN/Creat Ratio 13.9 RATIO (10-20); Calcium,Total 9.4 mg/dL (8.5-10.1); Chloride 105 mmol/L (98-107); Cholesterol 169 mg/dL (200); Creatinine, Serum 0.94 mg/dL (0.70-1.30); EST Glomerular Filtration Rate 90 mL/min (>60); Est Glom Filt Rate - Afr Amer 109 mL/min (>60); Globulin 3.5 g/dL (2.2-4.2); Glucose 100 mg/dL (74-106); High Density Lipoprotein 36 mg/dL; PSA,Total - Annual Screen 0.81 ng/mL (0.00-4.00); Protein, Total 7.3 g/dL (6.4-8.2); Sodium Level 138 mmol/L (136-145); Triglycerides 257 mg/dL; Very Low Density Lipoprotein 51 mg/dL (5-40)
== END | disposition home or self-care (01) ==
LOC: MFPLAB 08:58
PROVIDERS: PCP Family Medicine; Referring Provider Family Medicine; Visit Provider Family Medicine
DX: Z12.5 Encounter for screening for malignant neoplasm of prostate (principal)
CPT/HCPCS: 36415; 80053; 80061; 84153; G0103

== ENCOUNTER 2022-07-31 11:30 | Outpatient (RCR) | payer OTHER, SELFPAY ==
--- NOTE | 2022-01-18 10:19 | HP.PTEVAL_ITS ---
Patient's Visit Information SAL PADILLA is a 51 year old M referred to Physical Therapy by MILLA SOTO with a diagnosis of R ankle fusion. Date of Evaluation: 01/18/22 Physical Therapist: Angelo Tucker PT, ATC - Visit Plan Frequency: 2-3x /Week Duration: 4-6 Weeks Plan: R ankle stretching and strengthening, mobilizations, balance and proprio, bike, and HEP - Subjective DOS: 09/20/21. Pt reports he had an ankle fusion performed at that time. Pt reports he also had his achilles tendon lengthening and multiple tendons replaced at that time. Pt reports he is starting to feel a little better at this time. Pt reports he was in a cast for 3 months after the surgery and has been walking with a CAM boot over the past month. Pt reports he has a follow up apt with his surgeon which he hopes to get rid of at some point. 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 Pt reports tingling and numbness in R foot at this time. Pt occasional sleep difficulty at this time secondary to pain. Pt has one flight of stairs at this time and must negotiate them one step at a time. 2/10 pain at rest, 5/10 pain at worst (when he walks a lot) - Pain R ankle Pain Intensity (Out of 10): 2 Pain Intensity Range: 5 - Objective Neuro: B LE sensation is WNL to light touch. MMT: R ankle DF= 15, PF= 21, L ankle DF= 33, PF= 56 #F. ROM: R ankle DF= 0, PF= 15; L ankle DF= 4, PF= 60 degrees. Girth: L ankle 56 cm, R ankle 58 cm. Gait: Pt is able to ambulate 140 feet until asking for a break secondary to fatigue - Balance/Special Test Scores Lower Extremity Functional Score: 31 - Goals Goal 1:: Decrease R ankle pain x 50% to aid with sleep Goal Time Frame: 4-6 Weeks Goal 2:: Increase R ankle MMT x 5-10 #F to aid with RTW with greater ease Goal Time Frame: 4-6 Weeks Goal 3:: Increase R ankle DF ROM x 5-10 degrees to aid with restoring a more normalized gait pattern Goal Time Frame: 4-6 Weeks Goal 4:: I with HEP Goal Time Frame: 4-6 Weeks - Rehabilitation Potential Physical Therapy Diagnosis: Pt has R ankle pain, weakness, and limited ROM secondary to R ankle fusion Rehabilitation Potential: Good - Anticipated Interventions Patient/Client Instruction: Educate patient on: Condition, Plan of Care For the Purpose of:: To improve self management Therapeutic Exercise to Include: Strength training, Endurance training, Balance training, Flexibilty training, Gait and locomotor training, Passive ROM, Active ROM For the Purpose of:: To decrease pain, To increase ROM, To improve muscle performance and motor function Cryotherapy (ice pack, ice massage): Yes For the Purpose of:: To decrease pain Thank you for the opportunity to evaluate your patient. For Medicare and Medicare HMO plans, please review the plan of care and approve it. It will need to be FAXED BACK to us at [phone] for Medicare purposes. For Medicare only, by signing this I certify the plan of care. Please let me know if there are questions or concerns regarding this plan of care. Physician Signature:__ Date:
--- NOTE | 2022-03-03 10:08 | HP.PTREVAL ---
MILLA SOTO, It has been my pleasure to treat SAL PADILLA over the last 11 visits for R ankle fusion. Please see the progress note below for an update on the physical therapy plan of care! Subjective: Pt reports he see's the doctor on sunday Objective/Function: L foot pain 08/16. L ankle MMT: DF= 31 #F, PF= 45 #F. L ankle DF ROM= 10 degrees. Pt is progressing well toward Rx goals Plan Plan: R ankle stretching and strengthening, mobilizations, balance and proprio, bike, and HEP Balance/Gait/Functional tests - Balance/Special Test Scores Lower Extremity Functional Score: 31 Goals Goal 1:: Decrease R ankle pain x 50% to aid with sleep Goal Time Frame: 4-6 Weeks Goal Progress: Progressing Goal 2:: Increase R ankle MMT x 5-10 #F to aid with RTW with greater ease Goal Time Frame: 4-6 Weeks Goal Progress: Progressing Goal 3:: Increase R ankle DF ROM x 5-10 degrees to aid with restoring a more normalized gait pattern Goal Time Frame: 4-6 Weeks Goal Progress: Progressing Goal 4:: I with HEP Goal Time Frame: 4-6 Weeks Goal Progress: Progressing Anticipated Interventions Patient/Client Instruction: Educate patient on: Condition, Plan of Care For the Purpose of:: To improve self management Therapeutic Exercise to Include: Strength training, Endurance training, Balance training, Flexibilty training, Gait and locomotor training, Passive ROM, Active ROM For the Purpose of:: To decrease pain, To increase ROM, To improve muscle performance and motor function Cryotherapy (ice pack, ice massage): Yes For the Purpose of:: To decrease pain Please do not hesitate to contact me at [phone] by phone or if you have questions or concerns regarding this new plan of care! Sincerely, Angelo Tucker, PT, ATC
--- NOTE | 2022-03-10 11:59 | HP.PTREVAL ---
MILLA SOTO, It has been my pleasure to treat SAL PADILLA over the last 12 visits for R ankle fusion. Please see the progress note below for an update on the physical therapy plan of care! Subjective: Pt reports he still gets sharp shooting pain at night time Objective/Function: R foot pain ranges from 3-5/10. R ankle MMT: DF= 37 #F, PF= 57 #F. R ankle DF ROM= 15 degrees. Pt is progressing well toward Rx goals Plan Plan: R ankle stretching and strengthening, mobilizations, balance and proprio, bike, and HEP Balance/Gait/Functional tests - Balance/Special Test Scores Lower Extremity Functional Score: 31 Goals Goal 1:: Decrease R ankle pain x 50% to aid with sleep Goal Time Frame: 4-6 Weeks Goal Progress: Progressing Goal 2:: Increase R ankle MMT x 5-10 #F to aid with RTW with greater ease Goal Time Frame: 4-6 Weeks Goal Progress: Progressing Goal 3:: Increase R ankle DF ROM x 5-10 degrees to aid with restoring a more normalized gait pattern Goal Time Frame: 4-6 Weeks Goal Progress: Progressing Goal 4:: I with HEP Goal Time Frame: 4-6 Weeks Goal Progress: Progressing Anticipated Interventions Patient/Client Instruction: Educate patient on: Condition, Plan of Care For the Purpose of:: To improve self management Therapeutic Exercise to Include: Strength training, Endurance training, Balance training, Flexibilty training, Gait and locomotor training, Passive ROM, Active ROM For the Purpose of:: To decrease pain, To increase ROM, To improve muscle performance and motor function Cryotherapy (ice pack, ice massage): Yes For the Purpose of:: To decrease pain Please do not hesitate to contact me at [phone] by phone or if you have questions or concerns regarding this new plan of care! Sincerely, Angelo Tucker, PT, ATC
--- NOTE | 2022-04-04 11:38 | HP.PTREVAL_ITS ---
MILLA SOTO, It has been my pleasure to treat SAL PADILLA over the last 17 visits for R ankle fusion. Please see the progress note below for an update on the physical therapy plan of care! Subjective: I have been really sore the past few days Objective/Function: R ankle pain 4/10, still causes sleep difficulty at this time. R ankle MMT: DF= 38, PF=44 #F. R ankle ROM: DF= 15, PF= 20 degrees. Pt is progressing well toward Rx goals, would still benefit from further strengthening and ROM Plan Plan: R ankle stretching and strengthening, mobilizations, balance and proprio, bike, and HEP Balance/Gait/Functional tests - Balance/Special Test Scores Lower Extremity Functional Score: 31 Goals Goal 1:: Decrease R ankle pain x 50% to aid with sleep Goal Time Frame: 4-6 Weeks Goal Progress: Progressing Goal 2:: Increase R ankle MMT x 5-10 #F to aid with RTW with greater ease Goal Time Frame: 4-6 Weeks Goal Progress: Progressing Goal 3:: Increase R ankle DF ROM x 5-10 degrees to aid with restoring a more normalized gait pattern Goal Time Frame: 4-6 Weeks Goal Progress: Progressing Goal 4:: I with HEP Goal Time Frame: 4-6 Weeks Goal Progress: Progressing Anticipated Interventions Patient/Client Instruction: Educate patient on: Condition, Plan of Care For the Purpose of:: To improve self management Therapeutic Exercise to Include: Strength training, Endurance training, Balance training, Flexibilty training, Gait and locomotor training, Passive ROM, Active ROM For the Purpose of:: To decrease pain, To increase ROM, To improve muscle performance and motor function Cryotherapy (ice pack, ice massage): Yes For the Purpose of:: To decrease pain Please do not hesitate to contact me at [phone] by phone or Fax: if you have questions or concerns regarding this new plan of care! Sincerely, Angelo Tucker, PT, ATC
--- NOTE | 2022-07-31 12:08 | HP.PTDCSUM ---
It has been my pleasure to treat ASL PADILLA referred by MILLA SOTO, with the diagnosis of R ankle fusion for a total of 22 visit(s). Discharge Date: Please see the following information for a summary of their discharge status. Subjective: I feel like I am still walking weird. R ankle Pain Intensity (Out of 10): 3 % Improvement: 85 Objective/Function: R ankle pain ranges from 3-5/10. R ankle strength: DF= 41, PF= 41 #F. R ankle DF ROM: 20 degrees. Pt is now I with HEP Goal 1:: Decrease R ankle pain x 50% to aid with sleep Goal Progress: Goal Met Goal 2:: Increase R ankle MMT x 5-10 #F to aid with RTW with greater ease Goal Progress: Goal Met Goal 3:: Increase R ankle DF ROM x 5-10 degrees to aid with restoring a more normalized gait pattern Goal Progress: Goal Met Goal 4:: I with HEP Goal Progress: Goal Met Plan: Discharge If there are questions or concerns regarding this patient's physical therapy, please feel free to call me at [phone]. Thank you for the referral of this patient. Sincerely, Angelo Tucker, PT, ATC Balance/Gait/Functional tests - Balance/Special Test Scores Lower Extremity Functional Score: 37
== END 2022-07-31 19:00 | disposition home or self-care (01) ==
LOC: PT 11:30
PROVIDERS: PCP Family Medicine
DX: M25.571 Pain in right ankle and joints of right foot (principal)
CPT/HCPCS: 97110; 97140; 97161; 97164

== ENCOUNTER → 2022-08-02 | Outpatient (CLI) | payer OTHER, SELFPAY ==
[2022-08-02 13:19] LABS: Anion Gap 4 (5-15); BUN 14 mg/dL (7-18); BUN/Creat Ratio 16.3 RATIO (10-20); Calcium,Total 9.3 mg/dL (8.5-10.1); Chloride 106 mmol/L (98-107); Cholesterol 163 mg/dL (200); Creatinine, Serum 0.86 mg/dL (0.70-1.30); EST Glomerular Filtration Rate 99 mL/min (>60); Est Glom Filt Rate - Afr Amer 120 mL/min (>60); Glucose 104 mg/dL (74-106); High Density Lipoprotein 40 mg/dL; PSA,Total - Annual Screen 0.92 ng/mL (0.00-4.00); Potassium 4.4 mmol/L (3.5-5.1); Sodium Level 135 mmol/L (136-145); Triglycerides 153 mg/dL; Very Low Density Lipoprotein 31 mg/dL (5-40)
== END | disposition home or self-care (01) ==
LOC: MFPLAB 10:42
PROVIDERS: PCP Family Medicine; Visit Provider Family Medicine
DX: Z13.1 Encounter for screening for diabetes mellitus (principal); Z13.220 Encounter for screening for lipoid disorders; Z12.5 Encounter for screening for malignant neoplasm of prostate
CPT/HCPCS: 36415; 80048; 80061; 84153; G0103

== ENCOUNTER 2022-09-06 09:59 | Outpatient (RCR) | payer OTHER, SELFPAY | END 2022-09-06 23:59 | LOC: NS 09:59 | PROVIDERS: PCP Family Medicine; Referring Provider Family Medicine; Visit Provider Family Medicine | DX: Z71.3 Dietary counseling and surveillance (principal); E66.9 Obesity, unspecified; Z68.35 Body mass index [BMI] 35.0-35.9, adult | CPT/HCPCS: 97802 ==

== ENCOUNTER 2022-09-25 11:39 | Outpatient (RCR) | payer OTHER, SELFPAY | END 2022-10-06 23:59 | LOC: NS 11:39 | PROVIDERS: PCP Family Medicine; Referring Provider Family Medicine; Visit Provider Family Medicine | DX: Z71.3 Dietary counseling and surveillance (principal); E66.9 Obesity, unspecified; Z68.35 Body mass index [BMI] 35.0-35.9, adult | CPT/HCPCS: 97803 ==

== ENCOUNTER 2022-10-23 11:26 | Outpatient (RCR) | payer OTHER, SELFPAY | END 2022-11-06 23:59 | LOC: NS 11:26 | PROVIDERS: PCP Family Medicine; Referring Provider Family Medicine; Visit Provider Family Medicine | DX: Z71.3 Dietary counseling and surveillance (principal); E66.9 Obesity, unspecified; Z68.35 Body mass index [BMI] 35.0-35.9, adult | CPT/HCPCS: 97803 ==

== ENCOUNTER 2022-11-23 11:25 | Outpatient (RCR) | payer OTHER, SELFPAY | END 2022-12-07 23:59 | LOC: NS 11:25 | PROVIDERS: PCP Family Medicine; Referring Provider Family Medicine; Visit Provider Family Medicine | DX: Z71.3 Dietary counseling and surveillance (principal); E66.9 Obesity, unspecified; Z68.35 Body mass index [BMI] 35.0-35.9, adult | CPT/HCPCS: 97803 ==

== ENCOUNTER 2022-12-28 11:05 | Outpatient (RCR) | payer OTHER, SELFPAY | END 2023-01-06 23:59 | LOC: NS 11:05 | PROVIDERS: PCP Family Medicine; Referring Provider Family Medicine; Visit Provider Family Medicine | DX: E66.9 Obesity, unspecified (principal); Z68.35 Body mass index [BMI] 35.0-35.9, adult | CPT/HCPCS: 97803 ==

== ENCOUNTER 2023-02-01 11:04 | Outpatient (RCR) | payer OTHER, SELFPAY | END 2023-02-06 23:59 | LOC: NS 11:04 | PROVIDERS: PCP Family Medicine; Referring Provider Family Medicine; Visit Provider Family Medicine | DX: Z71.3 Dietary counseling and surveillance (principal); E66.9 Obesity, unspecified; Z68.35 Body mass index [BMI] 35.0-35.9, adult | CPT/HCPCS: 97803 ==

== ENCOUNTER 2023-02-22 11:35 | Outpatient (RCR) | payer OTHER, SELFPAY | END 2023-03-08 23:59 | LOC: NS 11:35 | PROVIDERS: PCP Family Medicine; Referring Provider Family Medicine; Visit Provider Family Medicine | DX: Z71.3 Dietary counseling and surveillance (principal); E66.9 Obesity, unspecified; Z68.36 Body mass index [BMI] 36.0-36.9, adult | CPT/HCPCS: 97803 ==

== ENCOUNTER 2023-03-12 11:25 | Outpatient (RCR) | payer OTHER, SELFPAY | END 2023-04-08 23:59 | LOC: NS 11:25 | PROVIDERS: PCP Family Medicine; Referring Provider Family Medicine; Visit Provider Family Medicine | DX: Z71.3 Dietary counseling and surveillance (principal); E66.9 Obesity, unspecified; Z68.35 Body mass index [BMI] 35.0-35.9, adult | CPT/HCPCS: 97803 ==

== ENCOUNTER 2023-04-19 10:45 | Outpatient (RCR) | payer OTHER, SELFPAY | END 2023-05-09 23:59 | LOC: NS 10:45 | PROVIDERS: PCP Family Medicine; Referring Provider Family Medicine; Visit Provider Family Medicine | DX: Z71.3 Dietary counseling and surveillance (principal); E66.9 Obesity, unspecified; Z68.35 Body mass index [BMI] 35.0-35.9, adult | CPT/HCPCS: 97803 ==

== ENCOUNTER 2023-05-31 11:26 | Outpatient (RCR) | payer OTHER, SELFPAY | END 2023-06-07 23:59 | LOC: NS 11:26 | PROVIDERS: PCP Family Medicine; Referring Provider Family Medicine; Visit Provider Family Medicine | DX: Z71.3 Dietary counseling and surveillance (principal); E66.9 Obesity, unspecified; Z68.35 Body mass index [BMI] 35.0-35.9, adult | CPT/HCPCS: 97803 ==

== ENCOUNTER 2023-08-01 10:58 | Outpatient (RCR) | payer OTHER, SELFPAY | END 2023-08-07 23:59 | LOC: NS 10:58 | PROVIDERS: PCP Family Medicine; Referring Provider Family Medicine; Visit Provider Family Medicine | DX: Z71.3 Dietary counseling and surveillance (principal); E66.9 Obesity, unspecified; Z68.35 Body mass index [BMI] 35.0-35.9, adult | CPT/HCPCS: 97803 ==

== ENCOUNTER 2023-09-13 10:55 | Outpatient (RCR) | payer OTHER, SELFPAY | END 2023-10-07 23:59 | LOC: NS 10:55 | PROVIDERS: PCP Family Medicine; Referring Provider Family Medicine; Visit Provider Family Medicine | DX: Z71.3 Dietary counseling and surveillance (principal); E66.9 Obesity, unspecified; Z68.35 Body mass index [BMI] 35.0-35.9, adult | CPT/HCPCS: 97803 ==

== ENCOUNTER → 2023-10-02 | Outpatient (CLI) | payer OTHER, SELFPAY ==
[2023-10-02 12:52] LABS: Anion Gap 5 (5-15); BUN 19 mg/dL (7-18); BUN/Creat Ratio 25.5 RATIO (10-20); Calcium,Total 9.2 mg/dL (8.5-10.1); Chloride 106 mmol/L (98-107); Cholesterol 126 mg/dL (200); Creatinine, Serum 0.75 mg/dL (0.70-1.30); EST Glomerular Filtration Rate 116 mL/min (>60); Est Glom Filt Rate - Afr Amer 140 mL/min (>60); Glucose 101 mg/dL (74-106); High Density Lipoprotein 44 mg/dL; PSA,Total - Annual Screen 0.85 ng/mL (0.00-4.00); Potassium 3.9 mmol/L (3.5-5.1); Sodium Level 139 mmol/L (136-145); Triglycerides 64 mg/dL; Very Low Density Lipoprotein 13 mg/dL (5-40)
== END | disposition home or self-care (01) ==
LOC: MFPLAB 10:20
PROVIDERS: PCP Family Medicine; Visit Provider Family Medicine
DX: Z12.5 Encounter for screening for malignant neoplasm of prostate (principal); Z13.1 Encounter for screening for diabetes mellitus; E78.5 Hyperlipidemia, unspecified
CPT/HCPCS: 36415; 80048; 80061; 84153; G0103

== ENCOUNTER 2023-10-24 10:41 | Outpatient (RCR) | payer OTHER, SELFPAY | END 2023-11-07 23:59 | LOC: NS 10:41 | PROVIDERS: PCP Family Medicine; Referring Provider Family Medicine; Visit Provider Family Medicine | DX: Z71.3 Dietary counseling and surveillance (principal); E66.3 Overweight; Z68.25 Body mass index [BMI] 25.0-25.9, adult | CPT/HCPCS: 97803 ==

== ENCOUNTER 2024-01-01 11:32 | Outpatient (RCR) | payer OTHER, SELFPAY | END 2024-01-07 23:59 | LOC: NS 11:32 | PROVIDERS: PCP Family Medicine; Referring Provider Family Medicine; Visit Provider Family Medicine | DX: Z71.3 Dietary counseling and surveillance (principal); E66.9 Obesity, unspecified; Z68.35 Body mass index [BMI] 35.0-35.9, adult | CPT/HCPCS: 97803 ==

== ENCOUNTER 2024-02-12 11:00 | Outpatient (RCR) | payer OTHER, SELFPAY | END 2024-03-08 23:59 | LOC: NS 11:00 | PROVIDERS: PCP Family Medicine; Referring Provider Family Medicine; Visit Provider Family Medicine | DX: Z71.3 Dietary counseling and surveillance (principal); E66.9 Obesity, unspecified; Z68.35 Body mass index [BMI] 35.0-35.9, adult | CPT/HCPCS: 97803 ==

== ENCOUNTER 2024-03-27 10:51 | Outpatient (RCR) | payer OTHER, SELFPAY | END 2024-04-08 23:59 | LOC: NS 10:51 | PROVIDERS: PCP Family Medicine; Referring Provider Family Medicine; Visit Provider Family Medicine | DX: Z71.3 Dietary counseling and surveillance (principal); E66.9 Obesity, unspecified; Z68.35 Body mass index [BMI] 35.0-35.9, adult | CPT/HCPCS: 97803 ==

== ENCOUNTER 2024-04-15 10:59 | Outpatient (RCR) | payer OTHER, SELFPAY | END 2024-05-09 23:59 | LOC: NS 10:59 | PROVIDERS: PCP Family Medicine; Referring Provider Family Medicine; Visit Provider Family Medicine | DX: Z71.3 Dietary counseling and surveillance (principal); E66.9 Obesity, unspecified; Z68.35 Body mass index [BMI] 35.0-35.9, adult | CPT/HCPCS: 97803 ==

== ENCOUNTER 2024-05-15 10:57 | Outpatient (RCR) | payer OTHER, SELFPAY | END 2024-06-06 23:59 | LOC: NS 10:57 | PROVIDERS: PCP Family Medicine; Referring Provider Family Medicine; Visit Provider Family Medicine | DX: Z71.3 Dietary counseling and surveillance (principal); E66.3 Overweight; Z68.26 Body mass index [BMI] 26.0-26.9, adult | CPT/HCPCS: 97803 ==

== ENCOUNTER 2024-06-09 11:33 | Outpatient (RCR) | payer OTHER, SELFPAY | END 2024-07-07 23:59 | LOC: NS 11:33 | PROVIDERS: PCP Family Medicine; Referring Provider Family Medicine; Visit Provider Family Medicine | DX: Z71.3 Dietary counseling and surveillance (principal); E66.3 Overweight; Z68.26 Body mass index [BMI] 26.0-26.9, adult | CPT/HCPCS: 97803 ==

== ENCOUNTER 2024-07-17 10:26 | Outpatient (RCR) | payer OTHER, SELFPAY | END 2024-08-06 23:59 | LOC: NS 10:26 | PROVIDERS: PCP Family Medicine; Referring Provider Family Medicine; Visit Provider Family Medicine | DX: Z71.3 Dietary counseling and surveillance (principal); E66.3 Overweight; Z68.26 Body mass index [BMI] 26.0-26.9, adult | CPT/HCPCS: 97803 ==

== ENCOUNTER 2024-08-21 10:00 | Outpatient (RCR) | payer OTHER, SELFPAY | END 2024-09-08 23:59 | LOC: NS 10:00 | PROVIDERS: PCP Family Medicine; Referring Provider Family Medicine; Visit Provider Family Medicine | DX: Z71.3 Dietary counseling and surveillance (principal); E66.3 Overweight; Z68.26 Body mass index [BMI] 26.0-26.9, adult | CPT/HCPCS: 97803 ==

== ENCOUNTER → 2024-10-02 | Outpatient (CLI) | payer OTHER, SELFPAY ==
[2024-10-02 13:42] LABS: Cholesterol 234 mg/dL (<=200); High Density Lipoprotein 40 mg/dL; Low Density Lipoprotein Calc. 169 mg/dL; Triglycerides 125 mg/dL; Very Low Density Lipoprotein 25 mg/dL (5-40); cholesterol:hdl ratio screen 5.91
--- OUTSIDE RECORDS SUMMARY | 2024-10-02 20:30 | XMS RPT_ITS | CCD ---
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 [employer] Name Role Phone MARIELA HOFFMAN Admitting Unavailable MARIELA HOFFMAN Attending Unavailable MARIELA HOFFMAN Primary Care Unavailable VACCARIELLO, AYLA Consulting Unavailable PROVIDER, UNKNOWN Consulting Unavailable PROVIDER, UNKNOWN Consulting Unavailable PROVIDER, UNKNOWN Consulting Unavailable VACCARIELLO, AYLA Consulting Unavailable VACCARIELLO, AYLA Primary Care Unavailable VACCARIELLO, AYLA Admitting Unavailable VACCARIELLO, AYLA Attending Unavailable PROVIDER, UNKNOWN Consulting Unavailable PROVIDER, UNKNOWN Consulting Unavailable PROVIDER, UNKNOWN Consulting Unavailable JUDITH HOFFMAN DR Admitting Unavailable VACCARIELLO, AYLA Consulting Unavailable JUDITH HOFFMAN DR Attending Unavailable JDUITH HOFFMAN DR Primary Care Unavailable PROVIDER, UNKNOWN Consulting Unavailable PROVIDER, UNKNOWN Consulting Unavailable PROVIDER, UNKNOWN Consulting Unavailable VACCARIELLO, AYLA Attending Unavailable VACCARIELLO, AYLA Consulting Unavailable VACCARIELLO, AYLA Primary Care Unavailable VACCARIELLO, AYLA Admitting Unavailable PROVIDER, UNKNOWN Consulting Unavailable PROVIDER, UNKNOWN Consulting Unavailable PROVIDER, UNKNOWN Consulting Unavailable VACCARIELLO, LIDIA Primary Care Unavailable FRANCIS ZIEGLER Referring Unavailable MILLA MCGILL Attending Unavailable CONSTABLEMILLA Referring Unavailable MILLA MCGILL Attending Unavailable VACCARIELLO, AYLA Purcell Primary Care Unavailable Sal Arceo MD Primary Care Provider Sal Arceo MD Primary Care Provider Sal Arceo MD Primary Care Provider Sal Arceo MD Primary Care Provider MILLA SOTO Referring Unavailable SAL ARCEO Primary Care UnavailSAL Sewell Primary Care UnavailMILLA Katz Referring Unavailable MILLA SOTO Attending Unavailable SAL ARCEO Primary Care UnavailMILLA Katz Referring Unavailable MILLA SOTO Attending Unavailable SAL ARCEO Primary Care Unavailabl e MILLA SOTO Referring Unavailable MILLA SOTO Attending Unavailable NABEEL, AYLA STEELE Referring Unavai lable VACCARIELLO, AYLA JULIO Primary Care Unavai lable VACCARIELLO, AYLA STEELE Primary Care Unavai lable MILLA SOTO Referring Unavailable MARIELOS SANTAQUIN [place] Primary Care Unavailabl e MILLA SOTO Referring Unavailable MARIELOS SANTAQUIN [place] Primary Care Unavailabl e MILLA SOTO Admitting Unavailable MILLA SOTO Attending Unavailable MILLA SOTO Attending Unavailable MILLA SOTO Admitting Unavailable MILLA SOTO Referring Unavailable MARIELOS SANTAQUIN [place] Primary Care Unavailabl e MILLA SOTO Referring Unavailable MARIELOS SANTAQUIN [place] Primary Care Unavailabl e MILLA SOTO Attending Unavailable MILLA SOTO Referring Unavailable MARIELOS SANTAQUIN [place] Primary Care Unavailabl e MARIELOS [facility] Primary Care Unavailabl e MILLA SOTO Attending Unavailable MILLA SOTO [facility]erring [facility]avail[facility] e MILLA SOTO Referring Unavailable MARIELOS SANTAQUIN [place] Primary Care Unavailabl e MILLA SOTO Attending Unavailable MILLA SOTO Referring Unavailable MILLA SOTO Referring Unavailable MILLA SOTO Attending [facility] [place] Primary Care Unavailabl e MILLA SOTO Referring Unavailable MARIELOS SANTAQUIN [place] Primary Care Unavailabl e MARIELOS SANTAQUIN [place] Primary Care Unavailabl e MILLA SOTO Referring Un[facility] [place] Primary Care Unavailabl e MILLA SOTO Referring Unavailable MILLA SOTO Attending Unavailable MARIELOS SANTAQUIN [place] Primary Care Unavailabl e MILLA SOTO Referring Unavailable MARIELOS SANTAQUIN [place] Primary Care Unavailabl e MARIELOS SANTAQUIN [place] Primary Care Unavailabl e MARIELOS SANTAQUIN [place] Primary Care Unavailabl e MILLA SOTO Referring Unavailable OFELIA CLAY Attending Unavailable MARIELOS [facility] Primary Care Unavailabl e MILLA SOTO Referring Unavailable [facility] Primary Care Unavailabl e CHARLES, MILLA J Referring Unavailable RANBLADIMIR, CAMERONER B Primary Care Unavailabl MILLA Hewitt Referring Unavailable MILLA SOTO Attending Unavailable Sal Arceo MD Primary Care Provider Marielos ASMUELS, Dr. Dueñas Primary Care Provider Marielos SAMUELS, Dr. Dueñas Attending Provider [phone] Marielos SAMUELS, Dr. Dueñas Referring Provider Marielos SAMUELS, Dr. Dueñas Primary Care Provider Marielos SAMUELS, Dr. Dueñas Attending Provider Marielos SAMUELS, Dr. Dueñas Referring Provider [phone] Jarrod Phillip Attending Provider Cameron Arceoer Attending Unavailable Ranney, Christopher Primary Care Unavailable Ranney, Christopher Referring Unavailable Ranney, Christopher Attending Unavailable Ranney, Christopher Primary Care Unavailable Ranney, Christopher Referring Unavailable Ranney, Christopher Attending Unavailable Ranney, Christopher Primary Care Unavailable Ranney, Christopher Referring Unavailable Ranney, Christopher Attending Unavailable Ranney, Christopher Primary Care Unavailable Ranney, Christopher Referring Unavailable Ranney, Christopher Attending Unavailable Ranney, Christopher Primary Care Unavailable Ranney, Christopher Referring Unavailable Ranney, Christopher Attending Unavailable Ranney, Christopher Primary Care Unavailable Ranney, Christopher Referring Unavailable Ranney, Christopher Primary Care Unavailable Jarrod Phillip Attending Unavailable Ranney, Christopher Referring Unavailable Ranney, Christopher Primary Care Unavailable Ranney, Christopher Attending Unavailable Ranney, Christopher Primary Care Unavailable Ranney, Christopher Referring Unavailable Ranney, Christopher Attending Unavailable Ranney, Christopher Attending Unavailable Ranney, Christopher Referring Unavailable Ranney, Christopher Primary Care Unavailable Ranney, Christopher Attending Unavailable Ranney, Christopher Referring Unavailable Ranney, Christopher Primary Care Unavailable Ranney, Christopher Attending Unavailable Ranney, Christopher Primary Care Unavailable Ranney, Christopher Referring Unavailable Ranney, Christopher Attending Unavailable Ranney, Christopher Primary Care Unavailable Ranney, Christopher Referring Unavailable Medications Current Medications Medication Drug Class(es) Dates Sig (Normalized) Sig (Original) acetaminophen 500 mg oral tablet (6 sources) Start: 09-22-2021 End: 10-20-2021 take 2 tablets by mouth every eight hours acetaminophen (TYLENOL) 500 mg tablet Take 2 tablets by mouth every 8 hours for 28 days. 168 tablet 0 09/22/2021 10/20/2021 Active Start: 08-04-2021 End: 08-18-2021 take 2 tablets by mouth every eight hours acetaminophen (TYLENOL EXTRA STRENGTH) 500 mg tablet Take 2 tablets by mouth every 8 hours for 14 days. 84 tablet 0 08/04/2021 08/18/2021 Active Comment on above: Take 2 tablets by mo [facility] every 8 hours for 14 days. Take 2 tablets by [facility] every 8 hours for 28 days. acetaminophen 325 mg / oxyCODONE hydrochloride 5 mg oral tablet (15 sources) Opioid Agonist Start: 12-11-19 21 take 1-2 tablets by mouth every six hours as needed for pain Oxycodone-Acetaminop hen (Percocet) 5-325 mg tablet Active 1 - 2 {tbl} PO EVERY 6 HOURS as needed for pain 30 December 10, 2020 amoxicillin 875 mg oral tablet (2 sources) Penicillin-class Antibacterial Start: 09-04-19 25 take 1 tablet by mouth twice daily Amoxicillin 875 mg tablet Active 875 mg PO TWICE A DAY September 03, 2024 12:00am apixaban 2.5 mg oral tablet (15 sources) Factor Xa Inhibitor Start: 12-11-19 21 take 1 tablet by mouth every twelve hours Apixaban (Eliquis) 2.5 mg tablet Active 2.5 mg PO Q12H December 10, 2020 12:00am aspirin 325 mg oral tablet (17 sources) Platelet Aggregation Inhibitor, Nonsteroidal Anti-inflammatory Drug Start: 09-22-19 22 End: 10-21-19 22 take 1 tablet by mouth once daily aspirin 325 mg tablet Take 1 tablet by mouth once daily for 28 days. 28 tablet 09/21/2021 Active Comment on above: Take 1 tablet by [facility] once daily for 28 days. atorvastatin 20 mg oral tablet (20 sources) HMG-CoA Reductase Inhibitor Start: 08-23-19 17 take 1 tablet by mouth at bedtime Atorvastatin 20 MG tablet Active 20 mg PO AT BEDTIME August 22, 2016 12:00am take 1 tablet by mouth once carlos y atorvastatin (LIPITOR) 40 mg tablet Take 40 mg by mouth once daily. Active Comment on above: Take 40 mg by mouth once daily. docusate sodium 100 mg oral capsule (6 sources) Start: 09-20-2021 End: 09-29-2021 take 1 capsule by mouth twice daily docusate sodium (COLACE) 100 mg capsule Take 1 capsule by mouth twice daily for 7 days. 14 capsule 0 09/20/2021 09/29/2021 Active Start: 08-04-2021 End: 09-03-2021 take 1 capsule by mouth twice daily docusate sodium (COLACE) 100 mg capsule Take 1 capsule by mouth twice daily. 60 capsule 0 08/04/2021 09/03/2021 Active Comment on above: Take 1 capsule by mo uth twice daily. Take 1 capsule by mo uth twice daily for 7 days. ondansetron 4 mg oral tablet (5 sources) Serotonin-3 Receptor Antagonist Start: 2 End: 2 take 1 tablet by mouth every twelve hours as needed ondansetron (ZOFRAN) 4 mg tablet Take 1 tablet by mouth every 12 hours as needed for nausea/vomiting for up to 7 days. 14 tablet 0 09/20/2021 09/27/2021 Active Start: 08-04-2021 End: 09-03-2021 take 1 tablet by mouth every eight hours as needed ondansetron (ZOFRAN) 4 mg tablet Take 1 tablet by mouth every 8 hours as needed for nausea/vomiting. 30 tablet 0 08/04/2021 09/03/2021 Active Comment on above: Take 1 tablet by jocelynn th every 8 hours as needed for nausea/vomiting. Take 1 tablet by jocelynn th every 12 hours as needed for nausea/vomiting for up to 7 days. oxyCODONE hydrochloride 5 mg oral tablet (2 sources) Opioid Agonist Start: 09-21-19 End: 09-28-19 22 take 1 tablet by mouth every four hours as needed oxyCODONE IR (ROXICODONE) 5 mg immediate release tablet Indications: Acquired cavovarus deformity of foot, right Take 1 to 2 tablets by mouth every 4 hours as needed for pain for up to 7 days. 28 tablet 0 09/20/2021 09/27/2021 Active Start: 08-04-2021 End: 08-11-2021 take 1 tablet by mouth every four hours as needed oxyCODONE IR (ROXICODONE) 5 mg immediate release tablet Indications: Cavovarus deformity of foot Take 1-2 tablets by mouth every 4 hours as needed for pain for up to 7 days. for pain. 15 tablet 0 08/04/2021 08/11/2021 Comment on above: Take 1-2 tablets by mouth every 4 hours as needed for pain for up to 7 days. for pain. Take 1 to 2 tablets by mouth every 4 hours as needed for pain for up to 7 days. Completed/Discontinued Medications Medication Drug Class(es) Dates Sig (Normalized) Sig (Original) amoxicillin 500 mg / clavulanate 125 mg oral tablet (15 sources) Penicillin-class Antibacterial Start: 12-10-2020 End: 09-03-2024 Amoxicillin-Pot Clavulanate (Augmentin) 500-125 mg tablet Discontinued 1 {tbl} PO Q12H December 10, 2020 12:00am September 03, 2024 5:43pm ergocalciferol 1.25 mg oral capsule (17 sources) Provitamin D2 Compound Start: 09-20-2021 End: 01-24-2022 take 1 capsule by mouth every week ergocalciferol 50,000 unit capsule (VITAMIN D2, DRISDOL) Take 1 capsule by mouth one time a week. 4 capsule 2 10/28/2021 01/24/2022 Discontinued Comment on above: Take 1 capsule by [facility] one time a week. take 1 capsule by [facility] every week esomeprazole 40 mg delayed release oral capsule (2 sources) Proton Pump Inhibitor Start: 03-23-2009 End: 07-29-2021 esomeprazole mag trihydrate(NEXIUM 40 MG CAP) take one capsule twice daily 0 03/23/2009 07/29/2021 Discontinued Comment on above: take one capsule twi ce daily mupirocin 0.02 mg/mg topical ointment (4 sources) RNA Synthetase Inhibitor Antibacterial Start: 01-05-2022 End: 03-06-2022 mupirocin (BACTROBAN) 2 % ointment Apply to affected area three times daily. 30 g 5 01/05/2022 03/06/2022 Comment on above: Apply to affected ar ea three times daily. 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, unspecified foot] Onset: 09-02-2021 Episodic Conditions associated with dizziness or vertigo (20 sources) Vertigo; Translations: [Dizziness and giddiness] Onset: 07-29-2021 07-29-2021 Episodic Disorders of lipid metabolism (20 sources) Hypercholesterolemi a; Translations: [Pure hypercholesterolemi a, unspecified] Onset: 07-29-2021 07-29-2021 Chronic Other and ill-defined cerebrovascular disease (20 sources) Intracranial aneurysm; Translations: [Cerebral aneurysm, nonruptured] Onset: 07-29-2021 07-29-2021 Chronic Other and ill-defined cerebrovascular disease (1 source) Cerebral aneurysm, nonruptured; Translations: [Cerebral aneurysm] Onset: 07-29-2021 Chronic Other connective tissue disease (3 sources) Peroneal tendinitis of right lower limb; Translations: [Peroneal tendinitis, right leg] Episodic Other non-traumatic joint disorders (18 sources) Arthralgia of the ankle and/or foot; Translations: [Pain in right ankle and joints of right foot] Episodic Other nutritional; endocrine; and metabolic disorders (20 sources) Body mass index 30+ - obesity; Translations: [Body mass index (BMI) 34.0-34.9, adult] Onset: 07-29-2021 07-29-2021 Chronic Other nutritional; endocrine; and metabolic disorders (1 source) Body mass index (BMI) 34.0-34.9, adult; Translations: [BMI 34.0-34.9,adult] Onset: 07-29-2021 Chronic Other nutritional; endocrine; and metabolic disorders (2 sources) Obesity, unspecified; Translations: [Obesity, unspecified] Onset: 09-09-2024 Chronic Syncope (15 sources) Syncope; Translations: [Syncope and collapse] 05-04-2019 Episodic Unclassified (1 source) Congenital talipes calcaneovarus, unspecified foot; Translations: [Cavovarus deformity of foot] Onset: 08-04-2021 Past or Other Problems Problem Classification Problem Date Documented Date Episodic/Chronic Abdominal pain (8 sources) Epigastric pain; Translations: [Epigastric pain] Onset: 03-23-2009 Resolved: 07-29-2021 03-23-2009 Episodic Other aftercare (18 sources) Surgical follow-up; Translations: [Encounter for follow-up examination after completed treatment for conditions other than malignant neoplasm] Onset: 09-27-2021 Episodic Other connective tissue disease (17 sources) Foot pain; Translations: [Pain in unspecified foot] Onset: 09-20-2021 09-20-2021 Episodic Other connective tissue disease (1 source) Peroneal tendinitis, right leg; Translations: [Peroneal tendinitis of right lower extremity] Onset: 08-14-2021 Episodic Other nervous system disorders (1 source) Other acute postprocedural pain; Translations: [Post-op pain] Onset: 09-20-2021 Episodic Other non-traumatic joint disorders (20 sources) Ankle pain; Translations: [Pain in right ankle and joints of right foot] Onset: 07-29-2021 07-29-2021 Episodic Other non-traumatic joint disorders (2 sources) Pain in right ankle and joints of right foot; Translations: [Right ankle pain, unspecified chronicity] Onset: 07-28-2021 Episodic Other screening for suspected conditions (not mental disorders or infectious disease) (1 source) Encounter for screening for malignant neoplasm of prostate; Translations: [Encounter for screening for malignant neoplasm of prostate] Onset: 10-08-2023 Episodic Results Test Name Value Interpretation Reference Range Facility Urgent Care Visit Reporton 0 09-03-2024 Urgent Care Visit Report [facility] [address] [place], [address] [place], [place] [address] OFFICE VISIT Date of Service: 09/03/24 MR#: [id number] Acct: [id number] Name: SAL PADILLA Rep #: [id number] : [id number] Provider: EMILY Stovall Age/Sex: 54/M Location: [facility] Status: Signed Intake Vital Signs 08/21/24 10:09 09/03/24 17:36 Height 5 ft 11 in 5 ft 11 in Weight: 192 lb 4 oz BMI 26.8 BP 122/62 H Blood Pressure Location Lt brachial Position Sitting Respiration 16 Pulse 67 Pulse Source NIBP Temp 98.5 F Temp Source Oral Pulse Oximetry (%) 98 Oxygen Delivery Method room air Intake Visit Reasons: ST/SINUS COMPLAINT Chief Complaint: drainage, cough, face pain, congestion 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 hx of same approx twice per year, treated for sinus infection PFSH Medical History Wears glasses Arthritis High cholesterol Family history of brain aneurysm History of vertigo Former smoker History of pain when walking History of edema History of stress test Hx of cardiac murmur Surgical History Hx laparoscopic cholecystectomy Hx of right knee surgery Social History (Updated 04/07/18 @ 13:57 by EMILY Corona) Smoking Status: Former smoker HPI HPI Chief Complaint: drainage, cough, face pain, congestion Details: SAL PADILLA, is a 54 M who presents to the office today for [facility] evaluation at [facility] for approximately 4-5 days history of progressively worsening facial pressure/congestion with purulent postnasal drip/cough and bilateral ear pressure. No complaints of fever, chills, myalgias, fatigue, runny nose, or nausea/vomiting/diar neno. No complaints of chest pain/shortness of breath/dyspnea on exertion. No close contacts with similar complaints. No other associated symptoms and no other alleviating/aggravat ing factors. ROS Const Constitutional: No other (as above) Exam Const General: cooperative, healthy appearing and no acute distress Nutritional Appearance: average body habitus Orientation: alert, awake and oriented x3 HENMT Head: normal to inspection Ears: hearing grossly normal bilaterally, external ears normal, TM's normal bilaterally and EAC's normal Nose: external nose normal, nares normal, septum normal and no nasal discharge Face and sinus: normal facial exam, sinuses nontender (Though bilateral maxillary fullness to palpation) and face symmetric Mouth: oral mucosae normal, lip normal, tongue normal and oropharynx normal Throat: posterior oropharynx normal, tonsils normal, uvula midline and postnasal drainage (Purulent) Eyes General: appearance normal, both eyes and all related structures Neck Neck: normal visual inspection, full ROM, no meningeal signs, supple and lymphadenopathy (Bilateral anterior cervical lymph node swelling/tender to palpation) Neck mass: No Thyroid: thyroid normal Chest Chest palpation inspection: normal inspection of the chest Resp Effort Inspection: normal respiratory effort and able to speak in complete sentences Auscultation: Bilateral: Clear to Auscultation Cardio Palpation: normal PMI Rate: regular rate Rhythm: regular rhythm Heart Sounds: S1 normal, S2 normal, no gallops, no murmurs and no rubs Pulses: radial pulses present GI Inspection: normal to inspection Skin General: no rashes or lesions noted Neuro General: patient alert, patient awake and patient oriented x3 Cognition: normal cognition Speech: speech normal Psych Appearance: grossly normal Mental Status: mental status grossly normal Mood: congruent mood Affect: normal affect Speech and Movement: speech and movement normal Attitude: cooperative Diagnoses Acute maxillary sinusitis, unspecified J01.00 Assessment and Plan Assessment and Plan (1) Acute maxillary sinusitis, unspecified: Status: Acute Plan: Amoxicillin as prescribed today. Supportive measures as instructed today. Follow-up with PCP in 3 to 5 days should symptoms not improve, sooner should symptoms worsen or any other concerns develop. Patient states acknowledgi (more content not included)... Normal [facility] Basic Metabolic Profile (BMP )on 10-02-2023 BUN/CRE 25.5 RATIO High 10-20 [facility] Comment on above: Order Comment: Order Date: 10/02/23 Order Info: [id number] - BMP Order Info: [id number] - LIPID Order Info: [id number] - PSA Performed By: #### L 500.2500, L501.9910, L500.4100 #### [facility] [address] [place], [address] CA,Total 9.2 mg/dL Normal 8.5-10.1 [facility] Comment on above: Order Comment: Order Date: 10/02/23 Order Info: [id number] - BMP Order Info: - LIPID Order Info: [id number] - PSA Performed By: #### L 500.2500, L501.9910, L500.4100 #### [facility] [address] [place], [address] Chloride [Moles/Vol] 106 mmol/L Normal 98-107 [facility] Comment on above: Order Comment: Order Date: 10/02/23 Order Info: [id number] - BMP Order Info: [id number] - LIPID Order Info: [id number] - PSA Performed By: #### L 500.2500, L501.9910, L500.4100 #### [facility] [address] [place], [address] CO2 [Moles/Vol] 28.0 mmol/L Normal 21.0-32.0 [facility] Comment on above: Order Comment: Order Date: 10/02/23 Order Info: [id number] - BMP Order Info: [id number] - LIPID Order Info: [id number] - PSA Performed By: #### L 500.2500, L501.9910, L500.4100 #### [facility] [address] [place], [address] Creatinine [Mass/Vol] 0.75 mg/dL Normal 0.70-1.30 [facility] Comment on above: Order Comment: Order Date: 10/02/23 Order Info: [id number] - BMP Order Info: [id number] - LIPID Order Info: [id number] - PSA Result Comment: The validity of the calculated GFR GFRAA in patients over 70 years has not been determined. Clinical correlation is essential. Performed By: #### L 500.2500, L501.9910, L500.4100 #### [facility] [address] [place], [address] EST GFR - AA 140 mL/min Normal >60 [facility] Comment on above: Order Comment: Order Date: 10/02/23 Order Info: 06 - BMP Order Info: [id number] - LIPID Order Info: [id number] - PSA Result Comment: Afri can Omani GFR Calc Performed By: #### L 500.2500, L501.9910, L500.4100 #### [facility] [address] [place], [address] GAP 5 Normal 5-15 [facility] Comment on above: Order Comment: Order Date: 10/02/23 Order Info: [id number] - BMP Order Info: [id number] - LIPID Order Info: [id number] - PSA Performed By: #### L 500.2500, L501.9910, L500.4100 #### [facility] [address] [place], [address] GFR/1.73 sq M.predicted among non-blacks MDRD (S/P/Bld) [Vol rate/Area] 116 mL/min/{1.73_m2} Normal >60 [facility] Comment on above: Order Comment: Order Date: 10/02/23 Order Info: 06 - BMP Order Info: [id number] - LIPID Order Info: [id number] - PSA Result Comment: Non- GFR Calc Performed By: #### L 500.2500, L501.9910, L500.4100 #### [facility] [address] [place], [address] Glucose [Mass/Vol] 101 mg/dL Normal 74-106 [facility] Comment on above: Order Comment: Order Date: 10/02/23 Order Info: [id number] - BMP Order Info: - LIPID Order Info: [id number] - PSA Result Comment: Fast ing Glucose result from 100 to 125 mg/dL suggests IMPAIRED HOMEOSTASIS per A.D.A. criteria. Performed By: #### L 500.2500, L501.9910, L500.4100 #### [facility] [address] [place], [address] Potassium [Moles/Vol] 3.9 mmol/L Normal 3.5-5.1 [facility] Comment on above: Order Comment: Order Date: 10/02/23 Order Info: [id number] - BMP Order Info: - LIPID Order Info: [id number] - PSA Performed By: #### L 500.2500, L501.9910, L500.4100 #### [facility] [address] [place], [address] Sodium [Moles/Vol] 139 mmol/L Normal 136-145 [facility] Comment on above: Order Comment: Order Date: 10/02/23 Order Info: [id number] - BMP Order Info: [id number] - LIPID Order Info: [id number] - PSA Performed By: #### L 500.2500, L501.9910, L500.4100 #### [facility] [address] [place], [address] Urea nitrogen [Mass/Vol] 19 mg/dL High 7-18 [facility] Comment on above: Order Comment: Order Date: 10/02/23 Order Info: 666-04 - BMP Order Info: [id number] - LIPID Order Info: [id number] - PSA Performed By: #### L 500.2500, L501.9910, L500.4100 #### [facility] [address] [place], [address] Lipid Profileon 10-02-2023 Cholesterol [Mass/Vol] 126 mg/dL Normal 200 [facility] Comment on above: Order Comment: Order Date: 10/02/23 Order Info: 666-04 - BMP Order Info: - LIPID Order Info: [id number] - PSA Result Comment: <200 mg/dL Desirable 200-240 mg/dL Borderline >240 mg/dL High Risk Performed By: #### L 500.2500, L501.9910, L500.4100 #### [facility] [address] [place], [address] Cholesterol in HDL [Mass/Vol] 44 mg/dL Normal [facility] Comment on above: Order Comment: Order Date: 10/02/23 Order Info: 666-04 - BMP Order Info: - LIPID Order Info: [id number] - PSA Result Comment: The drugs N-Acetylcysteine and Metamizole may falsely depress this assay. Reference Range HDL <40 mg/dL Low HDL Cholesterol HDL >or= 60 mg/dL High HDL Cholesterol Performed By: #### L 500.2500, L501.9910, L500.4100 #### [facility] [address] [place], [address] Cholesterol in LDL [Mass/Vol] 69 mg/dL Normal 0-130 [facility] Comment on above: Order Comment: Order Date: 10/02/23 Order Info: 666-04 - BMP Order Info: - LIPID Order Info: [id number] - PSA Performed By: #### L 500.2500, L501.9910, L500.4100 #### [facility] [address] [place], [address] Cholesterol in VLDL [Mass/Vol] 13 mg/dL Normal 5-40 [facility] Comment on above: Order Comment: Order Date: 10/02/23 Order Info: 666-04 - BMP Order Info: - LIPID Order Info: [id number] - PSA Performed By: #### L 500.2500, L501.9910, L500.4100 #### [facility] [address] [place], [address] Triglyceride [Mass/Vol] 64 mg/dL Normal [facility] Comment on above: Order Comment: Order Date: 10/02/23 Order Info: 666-04 - BMP Order Info: [id number] - LIPID Order Info: [id number] - PSA Result Comment: The drugs N-Acetylcysteine and Metamizole may falsely depress this assay. Serum Triglycerides Reference Interval Normal <150 mg/dL Borderline high 150 - 199 mg/dL High 200 - 499 mg/dL Very High > or = 500 mg/dL Performed By: #### L 500.2500, L501.9910, L500.4100 #### [facility] [address] [place], [address] PSA,Total - Annual Screenon 10-02-2023 PSA,TOT SCREEN 0.85 ng/mL Normal 0.00-4.00 [facility] Comment on above: Order Comment: Order Date: 10/02/23 Order Info: 666-04 - BMP Order Info: [id number] - LIPID Order Info: [id number] - PSA Result Comment: This test was performed using the TPSA assay method for the [employer] chemistry system. Values obtained with different assay methods cannot be used interchangably. When changing PSA assays in the course of monitoring a patient, additional sequential testing should be carried out to confirm baseline values. Performed By: #### L 500.2500, L501.9910, L500.4100 #### [facility] [address] [place], [address] Basophil percentageOrdered B y: Dr. Arceo on 08-02-2022 Chloride [Moles/Vol] 106 mmol/L 98-107 [facility] Cholesterol [Mass/Vol] 163 mg/dL <200 [facility] Comment on above: <200 mg/dL Desirable 200-240 mg/dL Borderline >240 mg/dL High Risk Glucose [Mass/Vol] 104 mg/dL 74-106 [facility] Comment on above: Fasting Glucose resu lt from 100 to 125 mg/dL suggests IMPAIRED HOMEOSTASIS per A.D.A. criteria. Potassium [Moles/Vol] 4.4 mmol/L 3.5-5.1 [facility] Sodium [Moles/Vol] 135 mmol/L 136-145 [facility] Triglyceride [Mass/Vol] 153 mg/dL <199 [facility] Comment on above: The drugs N-Acetylcy steine and Metamizole may falsely depress this assay.Serum Triglycerides Reference Interval Normal <150 mg/dL Borderline high 150 - 199 mg/dL High 200 - 499 mg/dL Very High > or = 500 mg/dL Laboratory - Chemistry and C hemistry - challengeOrdered By: Dr. Arceo on 08-02-2022 CO2 [Moles/Vol] 25.0 mmol/L 21.0-32.0 [facility] Urea nitrogen/Creatinine [Mass ratio] 16.3 mg/mg 10-20 [facility] No Panel InformationOrdered By: Dr. Arceo on 08-02-2022 Estimated GFR (MDRD) Amer 120 mL/min >60 [facility] Comment on above: GFR Calc Estimated GFR (MDRD) Non-Af Amer 99 mL/min >60 [facility] Comment on above: Non- GFR Calc Prostate Specific Antigen Screen 0.92 ng/mL 0.00-4.00 [facility] Comment on above: This test was perfor med using the TPSA assay method for the[employer] chemistry system. Values obtained with differentassay methods cannot be used interchangably.When changing PSA assays in the course of monitoring apatient, additional sequential testing should be carriedout to confirm baseline values. Serum or plasma calcium adán urement (mass/volume)Ordered By: Dr. Arceo on 08-02-2022 Calcium [Mass/Vol] 9.3 mg/dL 8.5-10.1 [facility] Serum or plasma cholesterol in HDL measurement (mass/volume)Ordered By: Dr. Arceo on 08-02-2022 Cholesterol in HDL [Mass/Vol] 40 mg/dL >40 [facility] Comment on above: The drugs N-Acetylcy steine and Metamizole may falsely depress this assay. Reference Range HDL <40 mg/dL Low HDL Cholesterol HDL >or= 60 mg/dL High HDL Cholesterol Serum or plasma cholesterol in VLDL measurement (mass/volume)Ordered By: Dr. Arceo on 08-02-2022 Cholesterol in VLDL [Mass/Vol] 31 mg/dL 5-40 [facility] Serum or plasma creatinine m easurement (mass/volume)Ordered By: Dr. Arceo on 08-02-2022 Creatinine [Mass/Vol] 0.86 mg/dL 0.70-1.30 [facility] Comment on above: The validity of the calculated GFR & GFRAA in patients over 70 years has not been determined. Clinical correlation is essential. Serum or plasma low density lipoprotein (LDL) cholesterol measurement (mass/volume)Ordered By: Dr. Arceo on 08-02-2022 Cholesterol in LDL [Mass/Vol] 92 mg/dL 0-130 [facility] Serum or plasma urea nitroge n measurement (mass/volume)Ordered By: Dr. Arceo on 08-02-2022 Urea nitrogen [Mass/Vol] 14 mg/dL 7-18 [facility] Thin prep Papanicolaou smear with manual screeningOrdered By: Dr. Arceo on 08-02-2022 Thin prep Papanicolaou smear with manual screening 4 5-15 [facility] CNOVon 06-08-2022 CNOV Office Visit (ORMIDD) SAL PADILLA ([id number]) 1970 M Date Time Provider Department 06/08/22 10:00 AM MILLA SOTO During your visit today, we recorded the following information about you: Milla Soto MD 06/08/2022 12:32 PM Signed June 08, 2022 HPI: Sal Padilla is following up for right ST fusion. Pain Descriptors: Duration: several months Severity: moderate Quality: ache Location: foot and ankle Context: worse with activity and dependence Modifying Factors: improved with rest and elevation Supporting Subjective Information Below: Estimated body mass index is 33.76 kg/m? as calculated from the following: Height as of 09/02/21: 180.3 cm (5' 11). Weight as of 09/21/21: 109.8 kg (242 lb 1 oz). Past Medical History PAST MEDICAL HISTORY Diagnosis Date Abdominal pain, epigastric Acquired cavovarus deformity of foot, right Acute gastritis without mention of hemorrhage Brain aneurysm Cholecystitis Fracture of right foot 2004 History of meniscal tear Hyperlipidemia Surgical History: PAST SURGICAL HISTORY Procedure Laterality Date ARTHROSCOPIC HARDWARE REMOVAL Right 07/2021 REMOVAL HARDWARE FOOT CHOLECYSTECTOMY W/CHOLANGIOGRAPHY 04/05/2009 EGD TRANSORAL BIOPSY SINGLE/MULTIPLE 03/25/2009 nodular/gastritis FOOT SURGERY HX Right 2020 KNEE RIGHT OP SURGERY Right 2019 torn meniscus repair Family History: FAMILY HISTORY Problem Relation Age of Onset No Known Problems Mother Prostate Cancer Father Medications: Current Outpatient Medications Medication Sig VITAMIN D2 1,250 mcg (50,000 unit) capsule take 1 capsule by mouth every week aspirin 325 mg tablet Take 1 tablet by mouth once daily for 28 days. atorvastatin (LIPITOR) 40 mg tablet Take 40 mg by mouth once daily. No current facility-administere d medications for this visit. Allergies: Patient has no known allergies. Review Of Systems GENERAL:Negative for malaise, significant weight loss and fever HEENT:Negative for frequent or significant headaches, significant changes in vision or vision problems, significant ear problems or hearing loss, nasal discharge or nose bleeds and sore throat, difficulty swallowing, mouth lesions NECK:Negative for lumps, goiter, pain and significant neck swelling RESPIRATORY: Negative for cough, wheezing and shortness of breath CARDIOVASCULAR: Negative for chest pain, leg swelling and palpitations GASTROINTESTINAL: Negative for abdominal discomfort, blood in stools or black stools and change in bowel habits GENITOURINARY: Negative for dysuria, frequency and incontinence MUSCULOSKELETAL: Negative for joint pain or swelling, back pain, and muscle pain. NEUROLOGIC:Negative for focal numbness or weakness, headaches and dizziness. SKIN:Negative for lesions, rash, and itching. PSYCHIATRIC: Negative for sleep disturbance, mood disorder and recent psychosocial stressors. HEMATOLOGIC/LYMPHATI C/IMMUNOLOGIC:Negati ve for prolonged bleeding, bruising easily, and swollen nodes. ENDOCRINE: Negative for cold or heat intolerance, polyuria, polydipsia and goiter. Physical Exam: Basic physical examination reveals the patient to be in no acute distress. The patient is alert and oriented x 3 Mood and affect are appropriate. Head is atraumatic, normocephalic. Neck ROM grossly intact. Mucous membranes are moist. Eyes, ears, and nose are normal in appearance. Hearing is grossly intact. Breathing is unlabored with grossly normal chest motion. Limited Upper Extremity Exam: Shoulders with grossly intact ROM and strength, no obvious deformity. Elbows with grossly intact ROM and strength, no obvious deformity. Hand and wrist with grossly intact ROM and strength, no obvious deformity. Focused orthopaedic examination reveals the following: Skin intact without lesions. Well aligned foot Mild swelling Stiff ankle and hindfoot Imaging: XR with healed ST fusion, well aligned ankle Assessment and Plan: Right cavovarus foot Encouraged and ordered more PT Brace on uneven ground Return to clinic: prn X-Ray's at next visit: Yes PCP: Sal Arceo MD [address] [facility] [id number] FELLOW / RESIDENT: No fellow or resident assisted in this office visit. Milla Soto MD Referring Provider: MILLA SOTO [[id number]] Allergies As of Date: 06/08/2022 (No Known Allergies) Date Reviewed: 06/08/2022 Reviewed by: Shelby Covington Ma - Fully Assessed Reason for Visit: Follow Up [171] Primary Visit Diagnosis:Acquired cavovarus deformity of foot, 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] Order(s):CONSULT TO PHYSICAL THERAPY [9032] Order #: [id number]: 1 FUTURE Prescriptions as of 06/08/2022 - VITAMIN D2 1,250 mcg (50,000 unit) capsule take 1 capsule by mouth every week - aspirin 325 mg tablet Take 1 tablet by mouth once daily for 28 days. - atorvastatin (L (more content not included)... Normal [facility] XR ANKLE 3V AP/LAT/OBL RTon 06-08-2022 XR ANKLE 3V AP/LAT/OBL RT * * *Final Report* * * DATE OF EXAM: Jun 08 2022 9:34AM MOX 5297 - XR ANKLE 3V AP/LAT/OBL RT / PROCEDURE REASON: Acquired cavovarus deformity of foot, right * * * * Physician Interpretation * * * * HISTORY: Acquired cavovarus deformity of foot, right TECHNIQUE: 3 views right ankle COMPARISON: 03/06/2022 RESULT: There is no acute fracture. Unchanged small corticated ossicles adjacent to the tip of the medial malleolus and adjacent to the lateral malleolus felt to be related to remote injury. Similar mild soft tissue swelling about the ankle. The ankle mortise is preserved. Small osteophyte at the anterior lip of the tibia from mild degenerative change. Postsurgical change of subtalar arthrodesis and posterior calcaneal osteotomy with increased healing transfixed by intact screws along with plate and screw fixation of the first metatarsal partially seen. Pes cavus. IMPRESSION: REMOTE POSTTRAUMATIC, MILD DEGENERATIVE AND POSTSURGICAL CHANGES [employer] Supervisor: JACQUIE Transcribe Date/Time: Jun 08 2022 10:12A Dictated by : CHARLENE SHEFFIELD MD This examination was interpreted and the report reviewed and electronically signed by: CHARLENE SHEFFIELD MD on Jun 08 2022 10:16AM EST [id number] Normal [facility] XR Ankle - right AP and Late ral and obliqueon 06-08-2022 IMPRESSION: REMOTE POSTTRAUMATIC, MILD DEGENERATIVE AND POSTSURGICAL CHANGES [employer] Supervisor: JACQUIE Transcribe Date/Time: Jun 08 2022 10:12A Dictated by : CHARLENE SHEFFIELD MD This examination was interpreted and the report reviewed and electronically signed by: CHARLENE SHEFFIELD MD on Jun 08 2022 10:16AM EST DIVISION OF RADIOLOGY * * *Final Report* * * DATE OF EXAM: Jun 08 2022 9:34AM MOX 5297 - XR ANKLE 3V AP/LAT/OBL RT / PROCEDURE REASON: Acquired cavovarus deformity of foot, right * * * * Physician Interpretation * * * * HISTORY: Acquired cavovarus deformity of foot, right TECHNIQUE: 3 views right ankle COMPARISON: 03/06/2022 RESULT: There is no acute fracture. Unchanged small corticated ossicles adjacent to the tip of the medial malleolus and adjacent to the lateral malleolus felt to be related to remote injury. Similar mild soft tissue swelling about the ankle. The ankle mortise is preserved. Small osteophyte at the anterior lip of the tibia from mild degenerative change. Postsurgical change of subtalar arthrodesis and posterior calcaneal osteotomy with increased healing transfixed by intact screws along with plate and screw fixation of the first metatarsal partially seen. Pes cavus. DIVISION OF RADIOLOGY Provider, [facility] [place] - 06/08/2022 * * *Final Report* * * DATE OF EXAM: Jun 08 2022 9:34AM MOX 5297 - XR ANKLE 3V AP/LAT/OBL RT / PROCEDURE REASON: Acquired cavovarus deformity of foot, right * * * * Physician Interpretation * * * * HISTORY: Acquired cavovarus deformity of foot, right TECHNIQUE: 3 views right ankle COMPARISON: 03/06/2022 RESULT: There is no acute fracture. Unchanged small corticated ossicles adjacent to the tip of the medial malleolus and adjacent to the lateral malleolus felt to be related to remote injury. Similar mild soft tissue swelling about the ankle. The ankle mortise is preserved. Small osteophyte at the anterior lip of the tibia from mild degenerative change. Postsurgical change of subtalar arthrodesis and posterior calcaneal osteotomy with increased healing transfixed by intact screws along with plate and screw fixation of the first metatarsal partially seen. Pes cavus. IMPRESSION IMPRESSION: REMOTE POSTTRAUMATIC, MILD DEGENERATIVE AND POSTSURGICAL CHANGES [employer] Supervisor: JACQUIE Transcribe Date/Time: Jun 08 2022 10:12A Dictated by : CHARLENE SHEFFIELD MD This examination was interpreted and the report reviewed and electronically signed by: CHARLENE SHEFFIELD MD on Jun 08 2022 10:16AM EST [facility] Radiology Study observation (narrative) [facility] XR Ankle - right AP and Late ral and obliqueOrdered By: [facility] Provider on 06-08-2022 [facility] CNOVon 03-06-2022 CNOV Office Visit (ORMIDD) SAL PADILLA ([id number]) 1970 M Date Time Provider Department 03/06/22 10:20 AM MILLA SOTO During your visit today, we recorded the following information about you: Milla Soto MD 03/06/2022 10:25 AM Signed March 06, 2022 HPI: Sal Padilla is following up for revision right cavovarus foot recon. Not using boot. Pain Descriptors: Duration: several months Severity: moderate Quality: ache Location: foot and ankle Context: worse with activity and dependence Modifying Factors: improved with rest and elevation Supporting Subjective Information Below: Estimated body mass index is 33.76 kg/m? as calculated from the following: Height as of 09/02/21: 180.3 cm (5' 11). Weight as of 09/21/21: 109.8 kg (242 lb 1 oz). Past Medical History PAST MEDICAL HISTORY Diagnosis Date Abdominal pain, epigastric Acquired cavovarus deformity of foot, right Acute gastritis without mention of hemorrhage Brain aneurysm Cholecystitis Fracture of right foot 2004 History of meniscal tear Hyperlipidemia Surgical History: PAST SURGICAL HISTORY Procedure Laterality Date ARTHROSCOPIC HARDWARE REMOVAL Right 07/2021 REMOVAL HARDWARE FOOT CHOLECYSTECTOMY W/CHOLANGIOGRAPHY 04/05/2009 EGD TRANSORAL BIOPSY SINGLE/MULTIPLE 03/25/2009 nodular/gastritis FOOT SURGERY HX Right 2020 KNEE RIGHT OP SURGERY Right 2019 torn meniscus repair Family History: FAMILY HISTORY Problem Relation Age of Onset No Known Problems Mother Prostate Cancer Father Medications: Current Outpatient Medications Medication Sig VITAMIN D2 1,250 mcg (50,000 unit) capsule take 1 capsule by mouth every week atorvastatin (LIPITOR) 40 mg tablet Take 40 mg by mouth once daily. mupirocin (BACTROBAN) 2 % ointment Apply to affected area three times daily. (Patient not taking: Reported on 03/06/2022) aspirin 325 mg tablet Take 1 tablet by mouth once daily for 28 days. No current facility-administere d medications for this visit. Allergies: Patient has no known allergies. Review Of Systems GENERAL:Negative for malaise, significant weight loss and fever HEENT:Negative for frequent or significant headaches, significant changes in vision or vision problems, significant ear problems or hearing loss, nasal discharge or nose bleeds and sore throat, difficulty swallowing, mouth lesions NECK:Negative for lumps, goiter, pain and significant neck swelling RESPIRATORY: Negative for cough, wheezing and shortness of breath CARDIOVASCULAR: Negative for chest pain, leg swelling and palpitations GASTROINTESTINAL: Negative for abdominal discomfort, blood in stools or black stools and change in bowel habits GENITOURINARY: Negative for dysuria, frequency and incontinence MUSCULOSKELETAL: Negative for joint pain or swelling, back pain, and muscle pain. NEUROLOGIC:Negative for focal numbness or weakness, headaches and dizziness. SKIN:Negative for lesions, rash, and itching. PSYCHIATRIC: Negative for sleep disturbance, mood disorder and recent psychosocial stressors. HEMATOLOGIC/LYMPHATI C/IMMUNOLOGIC:Negati ve for prolonged bleeding, bruising easily, and swollen nodes. ENDOCRINE: Negative for cold or heat intolerance, polyuria, polydipsia and goiter. Physical Exam: Basic physical examination reveals the patient to be in no acute distress. The patient is alert and oriented x 3 Mood and affect are appropriate. Head is atraumatic, normocephalic. Neck ROM grossly intact. Mucous membranes are moist. Eyes, ears, and nose are normal in appearance. Hearing is grossly intact. Breathing is unlabored with grossly normal chest motion. Limited Upper Extremity Exam: Shoulders with grossly intact ROM and strength, no obvious deformity. Elbows with grossly intact ROM and strength, no obvious deformity. Hand and wrist with grossly intact ROM and strength, no obvious deformity. Focused orthopaedic examination reveals the following: Skin intact without lesions. Moderate swelling Good alignment Stable ankl Imaging: XR with healed st fusion Assessment and Plan: right cavovarus foot Continue PT/HEP Return to clinic: 3 mos X-Ray's at next visit: Yes PCP: Sal Arceo MD [address] [place] [id number] FELLOW / RESIDENT: No fellow or resident assisted in this office visit. Milla Soto MD Referring Provider: MILLA SOTO [[id number]] Allergies As of Date: 03/06/2022 (No Known Allergies) Date Reviewed: 03/06/2022 Reviewed by: Verónica Moreland - Fully Assessed Reason for Visit: Follow Up [171] Pain [78] Primary Visit Diagnosis:Acquired cavovarus deformity of foot, 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] Order(s):XR ANKLE GENERAL 3V AP/LAT/OBL RIGHT [0422898] Order #: [id number] FUTURE CONSULT TO PHYSICAL THERAPY [9032] Order #: [id number]: 1 FUTURE XR ANKLE GENERAL 3 (more content not included)... Normal [facility] No Panel Informationon 03-06 Radiology Study observation (narrative) [facility] XR ANKLE 3V AP/LAT/OBL RTon 03-06-2022 XR ANKLE 3V AP/LAT/OBL RT * * *Final Report* * * DATE OF EXAM: Mar 06 2022 10:07AM MOX 5297 - XR ANKLE 3V AP/LAT/OBL RT / PROCEDURE REASON: Right ankle pain, unspecified chronicity * * * * Physician Interpretation * * * * HISTORY (as given from clinical provider): Right ankle pain, unspecified chronicity . Additional history provided by the performing technologist (if any): REPAIR ANKLE LIGAMENT SECONDARY DISRUPTED, COLLATERAL (Right: Ankle) GRAFT BONE SMALL (Right: Pelvis) LENGTHENING TENDON EXTREMITY LOWER on 09-20-21 TECHNIQUE: XR ANKLE 3V AP/LAT/OBL RT COMPARISON: 11/24/2021 RESULT: Subtalar arthrodesis and posterior calcaneal osteotomy transfixed by screws. The hardware is intact. Osteotomy line is still partially visible. Subtalar joint line is not visible and is probably fused. Small anterior ankle osteophytes. Pes cavus. Osteotomy of the hallux metatarsal transfixed by medial surgical plate with screws. This appears to be healed. No other significant abnormality. ----- IMPRESSION: POSTOPERATIVE FINDINGS DESCRIBED [employer] Supervisor: JACQUIE Transcribe Date/Time: Mar 06 2022 10:09A Dictated by : EMMANUEL ELIZABETH MD This examination was interpreted and the report reviewed and electronically signed by: EMMANUEL ELIZABETH MD on Mar 06 2022 10:10AM EST [id number] CN Normal [facility] XR Ankle - right AP and Late ral and obliqueon 03-06-2022 IMPRESSION: POSTOPERATIVE FINDINGS DESCRIBED [employer] Supervisor: BORA Transcribe Date/Time: Mar 06 2022 10:09A Dictated by : EMMANUEL ELIZABETH MD This examination was interpreted and the report reviewed and electronically signed by: EMMANUEL ELIZABETH MD on Mar 06 2022 10:10AM EST DIVISION OF RADIOLOGY * * *Final Report* * * DATE OF EXAM: Mar 06 2022 10:07AM MOX 5297 - XR ANKLE 3V AP/LAT/OBL RT / PROCEDURE REASON: Right ankle pain, unspecified chronicity * * * * Physician Interpretation * * * * HISTORY (as given from clinical provider): Right ankle pain, unspecified chronicity . Additional history provided by the performing technologist (if any): REPAIR ANKLE LIGAMENT SECONDARY DISRUPTED, COLLATERAL (Right: Ankle) GRAFT BONE SMALL (Right: Pelvis) LENGTHENING TENDON EXTREMITY LOWER on 09-20-21 TECHNIQUE: XR ANKLE 3V AP/LAT/OBL RT COMPARISON: 11/24/2021 RESULT: Subtalar arthrodesis and posterior calcaneal osteotomy transfixed by screws. The hardware is intact. Osteotomy line is still partially visible. Subtalar joint line is not visible and is probably fused. Small anterior ankle osteophytes. Pes cavus. Osteotomy of the hallux metatarsal transfixed by medial surgical plate with screws. This appears to be healed. No other significant abnormality. ----- DIVISION OF RADIOLOGY Provider, [facility] [place] - 03/06/2022 * * *Final Report* * * DATE OF EXAM: Mar 06 2022 10:07AM MOX 5297 - XR ANKLE 3V AP/LAT/OBL RT / PROCEDURE REASON: Right ankle pain, unspecified chronicity * * * * Physician Interpretation * * * * HISTORY (as given from clinical provider): Right ankle pain, unspecified chronicity . Additional history provided by the performing technologist (if any): REPAIR ANKLE LIGAMENT SECONDARY DISRUPTED, COLLATERAL (Right: Ankle) GRAFT BONE SMALL (Right: Pelvis) LENGTHENING TENDON EXTREMITY LOWER on 09-20-21 TECHNIQUE: XR ANKLE 3V AP/LAT/OBL RT COMPARISON: 11/24/2021 RESULT: Subtalar arthrodesis and posterior calcaneal osteotomy transfixed by screws. The hardware is intact. Osteotomy line is still partially visible. Subtalar joint line is not visible and is probably fused. Small anterior ankle osteophytes. Pes cavus. Osteotomy of the hallux metatarsal transfixed by medial surgical plate with screws. This appears to be healed. No other significant abnormality. ----- IMPRESSION IMPRESSION: POSTOPERATIVE FINDINGS DESCRIBED Box[employer] And Press[employer] Supervisor: JACQUIE Transcribe Date/Time: Mar 06 2022 10:09A Dictated by : EMMANUEL ELIZABETH MD This examination was interpreted and the report reviewed and electronically signed by: EMMANUEL ELIZABETH MD on Mar 06 2022 10:10AM EST [facility] XR Ankle - right AP and Late ral and obliqueOrdered By: Ccf Provider on 03-06-2022 [facility] XR FOOT 3V AP/LAT/OBL RTon 1 05-06-2021 XR FOOT 3V AP/LAT/OBL RT * * *Final Report* * * DATE OF EXAM: Mar 06 2022 10:07AM MOX 5337 - XR FOOT 3V AP/LAT/OBL RT / PROCEDURE REASON: Right ankle pain, unspecified chronicity * * * * Physician Interpretation * * * * HISTORY (as given from clinical provider): Right ankle pain, unspecified chronicity . Additional history provided by the performing technologist (if any): ARTHRODESIS SUBTALAR (Right: Ankle) REPAIR ANKLE LIGAMENT SECONDARY DISRUPTED, COLLATERAL (Right: Ankle) GRAFT BONE SMALL (Right: Pelvis) LENGTHENING TENDON EXTREMITY LOWER on 09-20-21 TECHNIQUE: XR FOOT 3V AP/LAT/OBL RT COMPARISON: 11/24/2021 RESULT: RESULT: Subtalar arthrodesis and posterior calcaneal osteotomy transfixed by screws. The hardware is intact. Osteotomy line is still partially visible. Subtalar joint line is not visible and is probably fused. Small anterior ankle osteophytes. Pes cavus. Osteotomy of the hallux metatarsal transfixed by medial surgical plate with screws. This appears to be healed. No other significant abnormality. ----- IMPRESSION: POSTOPERATIVE FINDINGS DESCRIBED Boxing And Pressing Supervisor: JACQUIE Transcribe Date/Time: Mar 06 2022 10:45A Dictated by : EMMANUEL ELIZABETH MD This examination was interpreted and the report reviewed and electronically signed by: EMMANUEL ELIZABETH MD on Mar 06 2022 10:46AM EST [id number] CN Normal [facility] XR Foot - right AP and Later al and obliqueon 03-06-2022 IMPRESSION: POSTOPERATIVE FINDINGS DESCRIBED Boxing And Pressing Supervisor: JACQUIE Transcribe Date/Time: Mar 06 2022 10:45A Dictated by : EMMANUEL ELIZABETH MD This examination was interpreted and the report reviewed and electronically signed by: EMMANUEL ELIZABETH MD on Mar 06 2022 10:46AM [facility] DIVISION OF RADIOLOGY * * *Final Report* * * DATE OF EXAM: Mar 06 2022 10:07AM MOX 5337 - XR FOOT 3V AP/LAT/OBL RT / PROCEDURE REASON: Right ankle pain, unspecified chronicity * * * * Physician Interpretation * * * * HISTORY (as given from clinical provider): Right ankle pain, unspecified chronicity . Additional history provided by the performing technologist (if any): ARTHRODESIS SUBTALAR (Right: Ankle) REPAIR ANKLE LIGAMENT SECONDARY DISRUPTED, COLLATERAL (Right: Ankle) GRAFT BONE SMALL (Right: Pelvis) LENGTHENING TENDON EXTREMITY LOWER on 09-20-21 TECHNIQUE: XR FOOT 3V AP/LAT/OBL RT COMPARISON: 11/24/2021 RESULT: RESULT: Subtalar arthrodesis and posterior calcaneal osteotomy transfixed by screws. The hardware is intact. Osteotomy line is still partially visible. Subtalar joint line is not visible and is probably fused. Small anterior ankle osteophytes. Pes cavus. Osteotomy of the hallux metatarsal transfixed by medial surgical plate with screws. This appears to be healed. No other significant abnormality. ----- DIVISION OF RADIOLOGY Provider, [facility] [place] - 03/06/2022 * * *Final Report* * * DATE OF EXAM: Mar 06 2022 10:07AM MOX 5337 - XR FOOT 3V AP/LAT/OBL RT / PROCEDURE REASON: Right ankle pain, unspecified chronicity * * * * Physician Interpretation * * * * HISTORY (as given from clinical provider): Right ankle pain, unspecified chronicity . Additional history provided by the performing technologist (if any): ARTHRODESIS SUBTALAR (Right: Ankle) REPAIR ANKLE LIGAMENT SECONDARY DISRUPTED, COLLATERAL (Right: Ankle) GRAFT BONE SMALL (Right: Pelvis) LENGTHENING TENDON EXTREMITY LOWER on 09-20-21 TECHNIQUE: XR FOOT 3V AP/LAT/OBL RT COMPARISON: 11/24/2021 RESULT: RESULT: Subtalar arthrodesis and posterior calcaneal osteotomy transfixed by screws. The hardware is intact. Osteotomy line is still partially visible. Subtalar joint line is not visible and is probably fused. Small anterior ankle osteophytes. Pes cavus. Osteotomy of the hallux metatarsal transfixed by medial surgical plate with screws. This appears to be healed. No other significant abnormality. ----- IMPRESSION IMPRESSION: POSTOPERATIVE FINDINGS DESCRIBED [employer] And Press[employer] Supervisor: JACQUIE Transcribe Date/Time: Mar 06 2022 10:45A Dictated by : EMMANUEL ELIZABETH MD This examination was interpreted and the report reviewed and electronically signed by: EMMANUEL ELIZABETH MD on Mar 06 2022 10:46AM EST [facility] CNOVon 01-05-2022 CNOV Office Visit (ORMIDD) SAL PADILLA ([id number]) 1970 M Date Time Provider Department 01/05/22 10:20 AM MILLA SOTO During your visit today, we recorded the following information about you: Milla Soto MD 01/05/2022 12:23 PM Signed January 05, 2022 HPI: Sal Padilla is following up for ST fusion Pain Descriptors: Duration: few months Severity: moderate Quality: ache Location: foot and ankle Context: worse with activity and dependence Modifying Factors: improved with rest and elevation Supporting Subjective Information Below: Estimated body mass index is 33.76 kg/m? as calculated from the following: Height as of 09/02/21: 180.3 cm (5' 11). Weight as of 09/21/21: 109.8 kg (242 lb 1 oz). Past Medical History PAST MEDICAL HISTORY Diagnosis Date Abdominal pain, epigastric Acquired cavovarus deformity of foot, right Acute gastritis without mention of hemorrhage Brain aneurysm Cholecystitis Fracture of right foot 2004 History of meniscal tear Hyperlipidemia Surgical History: PAST SURGICAL HISTORY Procedure Laterality Date ARTHROSCOPIC HARDWARE REMOVAL Right 07/2021 REMOVAL HARDWARE FOOT CHOLECYSTECTOMY W/CHOLANGIOGRAPHY 04/05/2009 EGD TRANSORAL BIOPSY SINGLE/MULTIPLE 03/25/2009 nodular/gastritis FOOT SURGERY HX Right 2020 KNEE RIGHT OP SURGERY Right 2019 torn meniscus repair Family History: FAMILY HISTORY Problem Relation Age of Onset No Known Problems Mother Prostate Cancer Father Medications: Current Outpatient Medications Medication Sig mupirocin (BACTROBAN) 2 % ointment Apply to affected area three times daily. ergocalciferol 50,000 unit capsule (VITAMIN D2, DRISDOL) Take 1 capsule by mouth one time a week. aspirin 325 mg tablet Take 1 tablet by mouth once daily for 28 days. atorvastatin (LIPITOR) 40 mg tablet Take 40 mg by mouth once daily. No current facility-administere d medications for this visit. Allergies: Patient has no known allergies. Review Of Systems GENERAL:Negative for malaise, significant weight loss and fever HEENT:Negative for frequent or significant headaches, significant changes in vision or vision problems, significant ear problems or hearing loss, nasal discharge or nose bleeds and sore throat, difficulty swallowing, mouth lesions NECK:Negative for lumps, goiter, pain and significant neck swelling RESPIRATORY: Negative for cough, wheezing and shortness of breath CARDIOVASCULAR: Negative for chest pain, leg swelling and palpitations GASTROINTESTINAL: Negative for abdominal discomfort, blood in stools or black stools and change in bowel habits GENITOURINARY: Negative for dysuria, frequency and incontinence MUSCULOSKELETAL: Negative for joint pain or swelling, back pain, and muscle pain. NEUROLOGIC:Negative for focal numbness or weakness, headaches and dizziness. SKIN:Negative for lesions, rash, and itching. PSYCHIATRIC: Negative for sleep disturbance, mood disorder and recent psychosocial stressors. HEMATOLOGIC/LYMPHATI C/IMMUNOLOGIC:Negati ve for prolonged bleeding, bruising easily, and swollen nodes. ENDOCRINE: Negative for cold or heat intolerance, polyuria, polydipsia and goiter. Physical Exam: Basic physical examination reveals the patient to be in no acute distress. The patient is alert and oriented x 3 Mood and affect are appropriate. Head is atraumatic, normocephalic. Neck ROM grossly intact. Mucous membranes are moist. Eyes, ears, and nose are normal in appearance. Hearing is grossly intact. Breathing is unlabored with grossly normal chest motion. Limited Upper Extremity Exam: Shoulders with grossly intact ROM and strength, no obvious deformity. Elbows with grossly intact ROM and strength, no obvious deformity. Hand and wrist with grossly intact ROM and strength, no obvious deformity. Focused orthopaedic examination reveals the following: Skin intact without lesions. Healed incisions Moderate stiffness Stable ankle Imaging: XR with healed ST fusion Assessment and Plan: Right subtalar fusion for cavovarus foot deformity, ankle instability Will transition out of boot gradually after 2-3 weeks WBAT in boot Start PT Return to clinic: 6-8 weeks X-Ray's at next visit: Yes PCP: Sal Arceo MD [address] [place] [id number] FELLOW / RESIDENT: No fellow or resident assisted in this office visit. Milla Soto MD Referring Provider: MILLA SOTO [[id number]] Allergies As of Date: 01/05/2022 (No Known Allergies) Date Reviewed: 01/05/2022 Reviewed by: Shelby Covington Ma - Fully Assessed Reason for Visit: Follow Up [171] Primary Visit Diagnosis:Right ankle pain, unspecified chronicity [M25.571] Order(s):XR FOOT GENERAL 3V AP/LAT/OBL RIGHT [[id number]] Order #: [id number] FUTURE CONSULT TO PHYSICAL THERAPY [9032] Order #: [id number] (more content not included)... Normal [facility] XR FOOT 3V AP/LAT/OBL RTon 0 01-05-2022 XR FOOT 3V AP/LAT/OBL RT * * *Final Report* * * DATE OF EXAM: Jan 05 2022 10:28AM MOX 5337 - XR FOOT 3V AP/LAT/OBL RT / PROCEDURE REASON: Right ankle pain, unspecified chronicity * * * * Physician Interpretation * * * * HISTORY: Right ankle pain, unspecified chronicity . ARTHRODESIS SUBTALAR (Right: Ankle) REPAIR ANKLE LIGAMENT SECONDARY DISRUPTED, COLLATERAL (Right: Ankle) GRAFT BONE SMALL (Right: Pelvis) 6-14-22 LENGTHENING TENDON EXTREMITY LOWER TECHNIQUE: XR FOOT 3V AP/LAT/OBL RT COMPARISON: 11/24/2021 RESULT: No significant interval change. Status post calcaneal osteotomy and subtalar arthrodesis fixed with 3 screws and first metatarsal osteotomy fixed with medial plate and screws. Hardware in normal position without evidence of failure or loosening. No evidence of a fracture. Osteopenia likely related to disuse. No other significant abnormality. ----- IMPRESSION: NORMAL POSTOPERATIVE FINDINGS Boxing And Pressing Supervisor: PSCMariposa Transcribe Date/Time: Jan 05 2022 10:51A Dictated by : MARK TALLEY MD This examination was interpreted and the report reviewed and electronically signed by: MARK TALLEY MD on Jan 05 2022 10:53AM EST [id number] CN Normal [facility] XR FOOT GENERAL 3V AP/LAT/OB L RIGHTon 01-05-2022 [facility] XR Foot - right AP and Later al and obliqueon 01-05-2022 IMPRESSION: NORMAL POSTOPERATIVE FINDINGS Boxing And Pressing Supervisor: PSCB Transcribe Date/Time: Jan 05 2022 10:51A Dictated by : MARK TALLEY MD This examination was interpreted and the report reviewed and electronically signed by: MARK TALLEY MD on Jan 05 2022 10:53AM EST DIVISION OF RADIOLOGY * * *Final Report* * * DATE OF EXAM: Jan 05 2022 10:28AM MOX 5337 - XR FOOT 3V AP/LAT/OBL RT / PROCEDURE REASON: Right ankle pain, unspecified chronicity * * * * Physician Interpretation * * * * HISTORY: Right ankle pain, unspecified chronicity . ARTHRODESIS SUBTALAR (Right: Ankle) REPAIR ANKLE LIGAMENT SECONDARY DISRUPTED, COLLATERAL (Right: Ankle) GRAFT BONE SMALL (Right: Pelvis) 09-20-21 LENGTHENING TENDON EXTREMITY LOWER TECHNIQUE: XR FOOT 3V AP/LAT/OBL RT COMPARISON: 11/24/2021 RESULT: No significant interval change. Status post calcaneal osteotomy and subtalar arthrodesis fixed with 3 screws and first metatarsal osteotomy fixed with medial plate and screws. Hardware in normal position without evidence of failure or loosening. No evidence of a fracture. Osteopenia likely related to disuse. No other significant abnormality. ----- DIVISION OF RADIOLOGY Provider, [facility] [place] - 01/05/2022 * * *Final Report* * * DATE OF EXAM: Jan 05 2022 10:28AM MOX 5337 - XR FOOT 3V AP/LAT/OBL RT / PROCEDURE REASON: Right ankle pain, unspecified chronicity * * * * Physician Interpretation * * * * HISTORY: Right ankle pain, unspecified chronicity . ARTHRODESIS SUBTALAR (Right: Ankle) REPAIR ANKLE LIGAMENT SECONDARY DISRUPTED, COLLATERAL (Right: Ankle) GRAFT BONE SMALL (Right: Pelvis) 09-20-21 LENGTHENING TENDON EXTREMITY LOWER TECHNIQUE: XR FOOT 3V AP/LAT/OBL RT COMPARISON: 11/24/2021 RESULT: No significant interval change. Status post calcaneal osteotomy and subtalar arthrodesis fixed with 3 screws and first metatarsal osteotomy fixed with medial plate and screws. Hardware in normal position without evidence of failure or loosening. No evidence of a fracture. Osteopenia likely related to disuse. No other significant abnormality. ----- IMPRESSION IMPRESSION: NORMAL POSTOPERATIVE FINDINGS Boxing And Pressing Supervisor: JACQUIE Transcribe Date/Time: Jan 05 2022 10:51A Dictated by : MARK TALLEY MD This examination was interpreted and the report reviewed and electronically signed by: MARK TALLEY MD on Jan 05 2022 10:53AM EST [facility] Radiology Study observation (narrative) [facility] XR Foot - right AP and Later al and obliqueOrdered By: Cc Provider on 01-05-2022 [facility] CNOVon 11-24-2021 CNOV Office Visit (ORMIDD) RANDYSAL ([id number]) 1970 M Date Time Provider Department 11/24/21 1:20 PM MILLA SOTO During your visit today, we recorded the following information about you: COLE Coker 11/25/2021 8:06 AM Signed PT ASSESSMENT - CASTING ROOM Sal presents for Application of boot. Applied high fracture walker and nightsplint to Right ankle Patient has been instructed in Care of boot.. COLE Coker Beeper: Milla Soto MD 11/24/2021 6:05 PM Signed Incisions healed Superficial dry eschar lateral Alignment intact XR with healing Plan for boot, ROM, partial WB x 3 then WBAT x 3 FU 6 for PT Milla Soto MD Referring Provider: MILLA SOTO [[id number]] Allergies As of Date: 11/24/2021 (No Known Allergies) Date Reviewed: 11/24/2021 Reviewed by: Shelby Covington Ma - Fully Assessed Reason for Visit: Post Op [174] Primary Visit Diagnosis:Acquired cavovarus deformity of foot, 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] Prescriptions as of 11/25/2021 - ergocalciferol 50,000 unit capsule (VITAMIN D2, DRISDOL) Take 1 capsule by mouth one time a week. - aspirin 325 mg tablet Take 1 tablet by mouth once daily for 28 days. - atorvastatin (LIPITOR) 40 mg tablet Take 40 mg by mouth once daily. Problem List As Of Date 11/24/2021 Noted Resolved Abdominal pain, epigastric [R10.13] 03/23/2009 07/29/2021 Vertigo [R42] 07/29/2021 Right ankle pain [M25.571] 07/29/2021 Cerebral aneurysm [I67.1] 07/29/2021 HLD (hyperlipidemia) [E78.5] 07/29/2021 BMI 34.0-34.9,adult [Z68.34] 07/29/2021 Acquired cavovarus deformity of foot, right [M2* Foot pain [M79.673] 09/20/2021 Postop check [Z09] 09/27/2021 Encounter Status:Closed by CHARLES, MILLA Alison on 11/24/21 Normal [facility] No Panel Informationon 11-24 IMPRESSION: Postoperative changes with intact hardware. Boxing And Pressing Supervisor: PSCMariposa Transcribe Date/Time: Nov 24 2021 1:53P Dictated by : BECCA HURT MD This examination was interpreted and the report reviewed and electronically signed by: BECCA HURT MD on Nov 24 2021 1:55PM EST DIVISION OF RADIOLOGY Radiology Study observation (narrative) [facility] No Panel InformationOrdered By: Ccf Provider on 11-24-2021 [facility] XR ANKLE 3V AP/LAT/OBL RTon 11-24-2021 XR ANKLE 3V AP/LAT/OBL RT * * *Final Report* * * DATE OF EXAM: Nov 24 2021 1:42PM MOX 5297 - XR ANKLE 3V AP/LAT/OBL RT / PROCEDURE REASON: Acquired cavovarus deformity of foot, right * * * * Physician Interpretation * * * * EXAMINATION / TECHNIQUE: XR FOOT 3V AP/LAT/OBL RT, XR ANKLE 3V AP/LAT/OBL RT HISTORY: surgery follow up Acquired cavovarus deformity of foot, right COMPARISON: 10/27/2021. RESULT: Intact first metatarsal plate and screw construct. There is a healing calcaneal osteotomy. There are intact subtalar arthrodesis screws. No acute fracture or dislocation in the ankle or foot. Pes cavus. Bony alignment is unchanged. COMBINED IMPRESSION: Postoperative changes with intact hardware. Boxing And Pressing Supervisor: [employer] Transcribe Date/Time: Nov 24 2021 1:53P Dictated by : BECCA HURT MD This examination was interpreted and the report reviewed and electronically signed by: BECCA HURT MD on Nov 24 2021 1:55PM EST [id number] CN Normal [facility] XR Ankle - right AP and Late ral and obliqueon 11-24-2021 * * *Final Report* * * DATE OF EXAM: Nov 24 2021 1:42PM MOX 5297 - XR ANKLE 3V AP/LAT/OBL RT / PROCEDURE REASON: Acquired cavovarus deformity of foot, right * * * * Physician Interpretation * * * * EXAMINATION / TECHNIQUE: XR FOOT 3V AP/LAT/OBL RT, XR ANKLE 3V AP/LAT/OBL RT HISTORY: surgery follow up Acquired cavovarus deformity of foot, right COMPARISON: 10/27/2021. RESULT: Intact first metatarsal plate and screw construct. There is a healing calcaneal osteotomy. There are intact subtalar arthrodesis screws. No acute fracture or dislocation in the ankle or foot. Pes cavus. Bony alignment is unchanged. COMBINED DIVISION OF RADIOLOGY Provider, [facility] [place] - 11/24/2021 * * *Final Report* * * DATE OF EXAM: Nov 24 2021 1:42PM MOX 5297 - XR ANKLE 3V AP/LAT/OBL RT / PROCEDURE REASON: Acquired cavovarus deformity of foot, right * * * * Physician Interpretation * * * * EXAMINATION / TECHNIQUE: XR FOOT 3V AP/LAT/OBL RT, XR ANKLE 3V AP/LAT/OBL RT HISTORY: surgery follow up Acquired cavovarus deformity of foot, right COMPARISON: 10/27/2021. RESULT: Intact first metatarsal plate and screw construct. There is a healing calcaneal osteotomy. There are intact subtalar arthrodesis screws. No acute fracture or dislocation in the ankle or foot. Pes cavus. Bony alignment is unchanged. COMBINED IMPRESSION IMPRESSION: Postoperative changes with intact hardware. Boxing And Pressing Supervisor: [facility] Transcribe Date/Time: Nov 24 2021 1:53P Dictated by : BECCA HURT MD This examination was interpreted and the report reviewed and electronically signed by: BECCA HURT MD on Nov 24 2021 1:55PM [facility] XR FOOT 3V AP/LAT/OBL RTon 0 11-24-2021 XR FOOT 3V AP/LAT/OBL RT * * *Final Report* * * DATE OF EXAM: Nov 24 2021 1:42PM MOX 5337 - XR FOOT 3V AP/LAT/OBL RT / PROCEDURE REASON: Acquired cavovarus deformity of foot, right * * * * Physician Interpretation * * * * EXAMINATION / TECHNIQUE: XR FOOT 3V AP/LAT/OBL RT, XR ANKLE 3V AP/LAT/OBL RT HISTORY: surgery follow up Acquired cavovarus deformity of foot, right COMPARISON: 10/27/2021. RESULT: Intact first metatarsal plate and screw construct. There is a healing calcaneal osteotomy. There are intact subtalar arthrodesis screws. No acute fracture or dislocation in the ankle or foot. Pes cavus. Bony alignment is unchanged. COMBINED IMPRESSION: Postoperative changes with intact hardware. Boxing And Pressing Supervisor: PSCB Transcribe Date/Time: Nov 24 2021 1:53P Dictated by : BECCA HURT MD This examination was interpreted and the report reviewed and electronically signed by: BECCA HURT MD on Nov 24 2021 1:55PM EST [id number] CN Normal [facility] XR Foot - right AP and Later al and obliqueon 11-24-2021 * * *Final Report* * * DATE OF EXAM: Nov 24 2021 1:42PM MOX 5337 - XR FOOT 3V AP/LAT/OBL RT / PROCEDURE REASON: Acquired cavovarus deformity of foot, right * * * * Physician Interpretation * * * * EXAMINATION / TECHNIQUE: XR FOOT 3V AP/LAT/OBL RT, XR ANKLE 3V AP/LAT/OBL RT HISTORY: surgery follow up Acquired cavovarus deformity of foot, right COMPARISON: 10/27/2021. RESULT: Intact first metatarsal plate and screw construct. There is a healing calcaneal osteotomy. There are intact subtalar arthrodesis screws. No acute fracture or dislocation in the ankle or foot. Pes cavus. Bony alignment is unchanged. COMBINED DIVISION OF RADIOLOGY Provider, [facility] [place] - 11/24/2021 * * *Final Report* * * DATE OF EXAM: Nov 24 2021 1:42PM MOX 5337 - XR FOOT 3V AP/LAT/OBL RT / PROCEDURE REASON: Acquired cavovarus deformity of foot, right * * * * Physician Interpretation * * * * EXAMINATION / TECHNIQUE: XR FOOT 3V AP/LAT/OBL RT, XR ANKLE 3V AP/LAT/OBL RT HISTORY: surgery follow up Acquired cavovarus deformity of foot, right COMPARISON: 10/27/2021. RESULT: Intact first metatarsal plate and screw construct. There is a healing calcaneal osteotomy. There are intact subtalar arthrodesis screws. No acute fracture or dislocation in the ankle or foot. Pes cavus. Bony alignment is unchanged. COMBINED IMPRESSION IMPRESSION: Postoperative changes with intact hardware. Boxing And Pressing Supervisor: JACQUIE Transcribe Date/Time: Nov 24 2021 1:53P Dictated by : BECCA HURT MD This examination was interpreted and the report reviewed and electronically signed by: BECCA HURT MD on Nov 24 2021 1:55PM [facility] 10-28-2021 CNPN Telephone (ORQ) SAL PADILLA ([id number]) 1970 M Date Time Provider Department 10/28/21 MILLA SOTO ORQ During your visit today, we recorded the following information about you: Jeromy Bell 10/28/2021 2:46 PM Signed Dongeovanna is a patient of Dr. Soto. He was seen in office yesterday and was directed to remain on the Vitamin D2 50,000 international unit(s) Prescription. Patient got home and realized he doesn't have much left. He is asking for a refill to be sent in to the [facility] in [facility]. Allergies As of Date: 10/28/2021 (No Known Allergies) Date Reviewed: 09/27/2021 Reviewed by: Ofelia Clay PA-C - Fully Assessed Reason for Visit: Medication Problem [65] Cmt: Vitamin D2 50,000 IU Order(s):ergocalcife rol 50,000 unit capsule (VITAMIN D2, DRISDOL)Take 1 capsule by mouth one time a week.Disp: 4 capsuleRfl: 2 Prescriptions as of 10/28/2021 - ergocalciferol 50,000 unit capsule (VITAMIN D2, DRISDOL) Take 1 capsule by mouth one time a week. - aspirin 325 mg tablet Take 1 tablet by mouth once daily for 28 days. - atorvastatin (LIPITOR) 40 mg tablet Take 40 mg by mouth once daily. Problem List As Of Date 10/28/2021 Noted Resolved Abdominal pain, epigastric [R10.13] 03/23/2009 07/29/2021 Vertigo [R42] 07/29/2021 Right ankle pain [M25.571] 07/29/2021 Cerebral aneurysm [I67.1] 07/29/2021 HLD (hyperlipidemia) [E78.5] 07/29/2021 BMI 34.0-34.9,adult [Z68.34] 07/29/2021 Acquired cavovarus deformity of foot, right [M2* Foot pain [M79.673] 09/20/2021 Postop check [Z09] 09/27/2021 Prescriptions ordered this encounter Disp Refills Start End ERGOCALCIFEROL (VITAMIN D2) 1,250 MC* 4 ca* 2 10/28/2021 11/27/2021 Route: ORAL Sig: Take 1 capsule by mouth one time a week. Medications Discontinued During This Encounter Prescriptions - ergocalciferol 50,000 unit capsule (VITAMIN D2, DRISDOL) (Discontinued) Take 1 capsule by mouth one time a week. Encounter Status:Closed by OFLEIA CLAY on 10/28/21 [facility] CNOVlino 10-27-2021 CNOV Office Visit (JOHN) SAL PADILLA ([id number]) 1970 M Date Time Provider Department 10/27/21 11:20 AM MILLA SOTO During your visit today, we recorded the following information about you: COLE Coker 10/27/2021 12:05 PM Signed PT ASSESSMENT - CASTING ROOM Sal presents for Application of cast. Applied short cast: to Right leg Patient has been instructed in Care of cast.. COLE Coker Beeper: Milla Soto MD 10/27/2021 1:37 PM Signed Incisions CDI Improved swelling Good alignment XR with good healing SLNWBC fu 3 weeks with Qing Alvarez for SLNWBC Then fu with me 3 weeks later for XR Milla Soto MD Referring Provider: MILLA SOTO [[id number]] Allergies As of Date: 10/27/2021 (No Known Allergies) Date Reviewed: 09/27/2021 Reviewed by: Ofelia Clay PA-C - Fully Assessed Primary Visit Diagnosis:Acquired cavovarus deformity of foot, 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] Prescriptions as of 10/27/2021 - aspirin 325 mg tablet Take 1 tablet by mouth once daily for 28 days. - ergocalciferol 50,000 unit capsule (VITAMIN D2, DRISDOL) Take 1 capsule by mouth one time a week. - atorvastatin (LIPITOR) 40 mg tablet Take 40 mg by mouth once daily. Problem List As Of Date 10/27/2021 Noted Resolved Abdominal pain, epigastric [R10.13] 03/23/2009 07/29/2021 Vertigo [R42] 07/29/2021 Right ankle pain [M25.571] 07/29/2021 Cerebral aneurysm [I67.1] 07/29/2021 HLD (hyperlipidemia) [E78.5] 07/29/2021 BMI 34.0-34.9,adult [Z68.34] 07/29/2021 Acquired cavovarus deformity of foot, right [M2* Foot pain [M79.673] 09/20/2021 Postop check [Z09] 09/27/2021 Encounter Status:Closed by MILLA SOTO on 10/27/21 [facility] No Panel Informationon 10-27 IMPRESSION: POSTSURGICAL CHANGES WITH NO APPARENT COMPLICATION [employer] Supervisor: JACQUIE Transcribe Date/Time: Oct 27 2021 1:17P Dictated by : CHARLENE SHEFFIELD MD This examination was interpreted and the report reviewed and electronically signed by: CHARLENE SHEFFIELD MD on Oct 27 2021 1:22PM EST LenchoZZ_DO_NOT_USE_ DIVISION OF RADIOLOGY Radiology Study observation (narrative) [facility] No Panel InformationOrdered By: [facility] Provider on 10-27-2021 [facility] XR ANKLE 3V AP/LAT/OBL RTon 10-27-2021 XR ANKLE 3V AP/LAT/OBL RT * * *Final Report* * * DATE OF EXAM: Oct 27 2021 11:35AM MOX 5297 - XR ANKLE 3V AP/LAT/OBL RT / PROCEDURE REASON: Acquired cavovarus deformity of foot, right * * * * Physician Interpretation * * * * HISTORY: Acquired cavovarus deformity of foot, right TECHNIQUE: 3 views right foot. 3 views right ankle. COMPARISON: Right ankle radiographs 07/28/2021 RESULT: There is postsurgical change of first metatarsal fixation with intact plate and screws. Mild first MTP joint degenerative change. Again seen is postsurgical change of posterior calcaneal osteotomy with new subtalar fusion with placement of 3 new screws tube which are headless and removal of the previously seen calcaneal screws. Hardware is intact. Pes cavus. Small corticated ossicle adjacent to the medial malleolus from remote injury. The ankle mortise is preserved. Mild deformity of lateral malleolus probably from remote healed fracture. There is soft tissue swelling about the ankle. Mild soft tissue swelling at the dorsum of the forefoot. IMPRESSION: POSTSURGICAL CHANGES WITH NO APPARENT COMPLICATION [employer] Supervisor: JACQUIE Transcribe Date/Time: Oct 27 2021 1:17P Dictated by : CHARLENE SHEFFIELD MD This examination was interpreted and the report reviewed and electronically signed by: CHARLENE SHEFFIELD MD on Oct 27 2021 1:22PM EST [id number] CN Normal [facility] XR Ankle - right AP and Late ral and obliqueon 10-27-2021 * * *Final Report* * * DATE OF EXAM: Oct 27 2021 11:35AM MOX 5297 - XR ANKLE 3V AP/LAT/OBL RT / PROCEDURE REASON: Acquired cavovarus deformity of foot, right * * * * Physician Interpretation * * * * HISTORY: Acquired cavovarus deformity of foot, right TECHNIQUE: 3 views right foot. 3 views right ankle. COMPARISON: Right ankle radiographs 07/28/2021 RESULT: There is postsurgical change of first metatarsal fixation with intact plate and screws. Mild first MTP joint degenerative change. Again seen is postsurgical change of posterior calcaneal osteotomy with new subtalar fusion with placement of 3 new screws tube which are headless and removal of the previously seen calcaneal screws. Hardware is intact. Pes cavus. Small corticated ossicle adjacent to the medial malleolus from remote injury. The ankle mortise is preserved. Mild deformity of lateral malleolus probably from remote healed fracture. There is soft tissue swelling about the ankle. Mild soft tissue swelling at the dorsum of the forefoot. [facility]ZZ_DO_NOT_USE_ DIVISION OF RADIOLOGY Provider, [facility] [place] - 10/27/2021 * * *Final Report* * * DATE OF EXAM: Oct 27 2021 11:35AM MOX 5297 - XR ANKLE 3V AP/LAT/OBL RT / PROCEDURE REASON: Acquired cavovarus deformity of foot, right * * * * Physician Interpretation * * * * HISTORY: Acquired cavovarus deformity of foot, right TECHNIQUE: 3 views right foot. 3 views right ankle. COMPARISON: Right ankle radiographs 07/28/2021 RESULT: There is postsurgical change of first metatarsal fixation with intact plate and screws. Mild first MTP joint degenerative change. Again seen is postsurgical change of posterior calcaneal osteotomy with new subtalar fusion with placement of 3 new screws tube which are headless and removal of the previously seen calcaneal screws. Hardware is intact. Pes cavus. Small corticated ossicle adjacent to the medial malleolus from remote injury. The ankle mortise is preserved. Mild deformity of lateral malleolus probably from remote healed fracture. There is soft tissue swelling about the ankle. Mild soft tissue swelling at the dorsum of the forefoot. IMPRESSION IMPRESSION: POSTSURGICAL CHANGES WITH NO APPARENT COMPLICATION [employer] [facility] Transcribe Date/Time: Oct 27 2021 1:17P Dictated by : CHARLENE SHEFFIELD MD This examination was interpreted and the report reviewed and electronically signed by: CHARLENE SHEFFIELD MD on Oct 27 2021 1:22PM [facility] XR FOOT 3V AP/LAT/OBL RTon 0 10-27-2021 XR FOOT 3V AP/LAT/OBL RT * * *Final Report* * * DATE OF EXAM: Oct 27 2021 11:35AM MOX 5337 - XR FOOT 3V AP/LAT/OBL RT / PROCEDURE REASON: Acquired cavovarus deformity of foot, right * * * * Physician Interpretation * * * * HISTORY: Acquired cavovarus deformity of foot, right TECHNIQUE: 3 views right foot. 3 views right ankle. COMPARISON: Right ankle radiographs 07/28/2021 RESULT: There is postsurgical change of first metatarsal fixation with intact plate and screws. Mild first MTP joint degenerative change. Again seen is postsurgical change of posterior calcaneal osteotomy with new subtalar fusion with placement of 3 new screws tube which are headless and removal of the previously seen calcaneal screws. Hardware is intact. Pes cavus. Small corticated ossicle adjacent to the medial malleolus from remote injury. The ankle mortise is preserved. Mild deformity of lateral malleolus probably from remote healed fracture. There is soft tissue swelling about the ankle. Mild soft tissue swelling at the dorsum of the forefoot. IMPRESSION: POSTSURGICAL CHANGES WITH NO APPARENT COMPLICATION [employer] Supervisor: [facility] Transcribe Date/Time: Oct 27 2021 1:17P Dictated by : CHARLENE SHEFFIELD MD This examination was interpreted and the report reviewed and electronically signed by: CHARLENE SHEFFIELD MD on Oct 27 2021 1:22PM EST [id number] CN Normal [facility] XR Foot - right AP and Later al and obliqueon 10-27-2021 * * *Final Report* * * DATE OF EXAM: Oct 27 2021 11:35AM MOX 5337 - XR FOOT 3V AP/LAT/OBL RT / PROCEDURE REASON: Acquired cavovarus deformity of foot, right * * * * Physician Interpretation * * * * HISTORY: Acquired cavovarus deformity of foot, right TECHNIQUE: 3 views right foot. 3 views right ankle. COMPARISON: Right ankle radiographs 07/28/2021 RESULT: There is postsurgical change of first metatarsal fixation with intact plate and screws. Mild first MTP joint degenerative change. Again seen is postsurgical change of posterior calcaneal osteotomy with new subtalar fusion with placement of 3 new screws tube which are headless and removal of the previously seen calcaneal screws. Hardware is intact. Pes cavus. Small corticated ossicle adjacent to the medial malleolus from remote injury. The ankle mortise is preserved. Mild deformity of lateral malleolus probably from remote healed fracture. There is soft tissue swelling about the ankle. Mild soft tissue swelling at the dorsum of the forefoot. DALJIT_DO_NOT_USE_ DIVISION OF RADIOLOGY Provider, [facility] [place] - 10/27/2021 * * *Final Report* * * DATE OF EXAM: Oct 27 2021 11:35AM MOX 5337 - XR FOOT 3V AP/LAT/OBL RT / PROCEDURE REASON: Acquired cavovarus deformity of foot, right * * * * Physician Interpretation * * * * HISTORY: Acquired cavovarus deformity of foot, right TECHNIQUE: 3 views right foot. 3 views right ankle. COMPARISON: Right ankle radiographs 07/28/2021 RESULT: There is postsurgical change of first metatarsal fixation with intact plate and screws. Mild first MTP joint degenerative change. Again seen is postsurgical change of posterior calcaneal osteotomy with new subtalar fusion with placement of 3 new screws tube which are headless and removal of the previously seen calcaneal screws. Hardware is intact. Pes cavus. Small corticated ossicle adjacent to the medial malleolus from remote injury. The ankle mortise is preserved. Mild deformity of lateral malleolus probably from remote healed fracture. There is soft tissue swelling about the ankle. Mild soft tissue swelling at the dorsum of the forefoot. IMPRESSION IMPRESSION: POSTSURGICAL CHANGES WITH NO APPARENT COMPLICATION [employer] Supervisor: [facility] Transcribe Date/Time: Oct 27 2021 1:17P Dictated by : CHARLENE SHEFFIELD MD This examination was interpreted and the report reviewed and electronically signed by: CHARLENE SHEFFIELD MD on Oct 27 2021 1:22PM [facility] CNOVon 10-13-2021 CNOV Office Visit (ORMIDD) SAL PADILLA ([id number]) 1970 M Date Time Provider Department 10/13/21 11:20 AM MILLA SOTO During your visit today, we recorded the following information about you: Milla Soto MD 10/13/2021 11:47 AM Signed Incision CDI Mild swelling Sutures removed SLNWBC FU 2 weeks with XR Milla Soto MD Referring Provider: MILLA SOTO [[id number]] Allergies As of Date: 10/13/2021 (No Known Allergies) Date Reviewed: 09/27/2021 Reviewed by: Ofelia Clay PA-C - Fully Assessed Primary Visit Diagnosis:Acquired cavovarus deformity of foot, 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] Order(s):XR FOOT GENERAL 3V AP/LAT/OBL RIGHT [[id number]] Order #: [id number] FUTURE XR ANKLE GENERAL 3V AP/LAT/OBL RIGHT [[id number]] Order #: [id number] FUTURE Prescriptions as of 10/13/2021 - acetaminophen (TYLENOL) 500 mg tablet Take 2 tablets by mouth every 8 hours for 28 days. - aspirin 325 mg tablet Take 1 tablet by mouth once daily for 28 days. - ergocalciferol 50,000 unit capsule (VITAMIN D2, DRISDOL) Take 1 capsule by mouth one time a week. - atorvastatin (LIPITOR) 40 mg tablet Take 40 mg by mouth once daily. Problem List As Of Date 10/13/2021 Noted Resolved Abdominal pain, epigastric [R10.13] 03/23/2009 07/29/2021 Vertigo [R42] 07/29/2021 Right ankle pain [M25.571] 07/29/2021 Cerebral aneurysm [I67.1] 07/29/2021 HLD (hyperlipidemia) [E78.5] 07/29/2021 BMI 34.0-34.9,adult [Z68.34] 07/29/2021 Acquired cavovarus deformity of foot, right [M2* Foot pain [M79.673] 09/20/2021 Postop check [Z09] 09/27/2021 Encounter Status:Closed by MILLA SOTO on 10/13/21 [facility] 09-30-2021 [facility] Telephone (ORQ) SAL PADILLA ([id number]) 1970 M Date Time Provider Department 09/30/21 MILLA SOTO ORQ During your visit today, we recorded the following information about you: Jeromy Bell 09/30/2021 2:28 PM Signed Called patient per Lois Clay for an update on post-op rash. Left a nonspecific voicemail asking patient to return my call for an update and provided office phone number. Allergies As of Date: 09/30/2021 (No Known Allergies) Date Reviewed: 09/27/2021 Reviewed by: Ofelia Clay PA-C - Fully Assessed Reason for Visit: Patient Update [1234] Cmt: Calling for patient update Prescriptions as of 09/30/2021 - acetaminophen (TYLENOL) 500 mg tablet Take 2 tablets by mouth every 8 hours for 28 days. - aspirin 325 mg tablet Take 1 tablet by mouth once daily for 28 days. - ergocalciferol 50,000 unit capsule (VITAMIN D2, DRISDOL) Take 1 capsule by mouth one time a week. - atorvastatin (LIPITOR) 40 mg tablet Take 40 mg by mouth once daily. Problem List As Of Date 09/30/2021 Noted Resolved Abdominal pain, epigastric [R10.13] 03/23/2009 07/29/2021 Vertigo [R42] 07/29/2021 Right ankle pain [M25.571] 07/29/2021 Cerebral aneurysm [I67.1] 07/29/2021 HLD (hyperlipidemia) [E78.5] 07/29/2021 BMI 34.0-34.9,adult [Z68.34] 07/29/2021 Acquired cavovarus deformity of foot, right [M2* Foot pain [M79.673] 09/20/2021 Postop check [Z09] 09/27/2021 Encounter Status:Closed by JEROMY BELL on 09/30/21 [facility] CNOVon 09-27-2021 CNOV Office Visit (ORFTMN) SAL PADILLA ([id number]) 1970 M Date Time Provider Department 09/27/21 2:40 PM OFELIA CLAY During your visit today, we recorded the following information about you: COLE Coker 10/05/2021 11:18 AM Signed PT ASSESSMENT - CASTING ROOM Sal presents for Application of cast. Applied short cast: to Right foot Patient has been instructed in Care of cast.. COLE Coker Beeper: [id number] Ofelia Clay PA-C 09/27/2021 5:32 PM Signed Milla Soto [id number] [facility] [id number] Specialty Problems Ortho Problems Right ankle pain Acquired cavovarus deformity of foot, right Foot pain CC: Established Patient, Follow Up, and Post Op of the Right Ankle Injury/Surgery Date: 09/20/2021 Procedure: 1.?Right?subtalar arthrodesis. 2.?Right iliac?crest bone graft small. 3. Right achilles tendon lengthening.? 4. Right ankle lateral ligament reconstruction. Sal Padilla is a 51 year old male that returns today for follow up of right foot surgery by Dr. Soto. He is here for his first postop visit. His main complaint is an itchy rash located primarily along his buttocks and upper posterior thigh region. Some mild spots along the posterior upper arm but no other systemic locations. He is unsure of the cause of this rash and notes the only medication that he is taking now that he has not had before is aspirin daily. He has been in a sedentary position with the surfaces in contact with bedding for the last several days. He is unsure of any changes in laundry detergent, etc. He has tried Benadryl but not regularly. He denies any shortness of breath or difficulty breathing with the rash. ASSESSMENT: (M21.6X1) Acquired cavovarus deformity of foot, right (primary encounter diagnosis) (Z09) Postop check PLAN: Discussed options with the patient and recommended: 1. Placement in a short leg nonweightbearing bivalved cast 2. Will attempt to control the rash with showering, positional changes, and Benadryl regularly. If he does not improve we may consider switching his aspirin to Lovenox 40 mg once daily subcu. He will let me know how things are going over the next several days and if things worsen we will try medication change 3. Patient will follow up in [address] Soto as scheduled Detailed instructions were reviewed with the patient and all questions were answered in detail. Patient voiced understanding and compliance with the above plan. We discussed emergent need to return to the express care or go to the emergency department. We discussed red flags associated with this condition and emergent treatment if they present. I spent a total of 20 minutes on the date of the service which included preparing to see the patient, [id number] patient care, completing clinical documentation, obtaining and/or reviewing separately obtained history, performing a medically appropriate examination, counseling and educating the patient/family/careg iver, communicating results to the patient/family/careg iver and care coordination (not separately reported). Review of Systems PHYSICAL FINDINGS: There were no vitals taken for this visit. General appearance: healthy, alert, well hydrated, pleasant, no distress. Cardiovascular: no signs of upper or lower extremity edema Respiratory: no respiratory distress, no audible wheezing, no labored breathing Psychiatric: mood and affect are appropriate Skin: no abrasions or open wounds. Neurologic: Alert and oriented x 3 and Normal speech. MUSCULOSKELETAL EXAMINATION: Gait: patient ambulates with the assistance of a wheelchair Skin: Incision: clean, dry and intact and there is no erythema or drainage present. Neurovascularly intact distally Specialized Tests: There is no warmth, erythema, swelling or pain noted on examination of the bilateral calf areas. IMAGING: No imaging was performed today. Ofelia Clay PA-C Referring Provider: MILLA SOTO [[id number]] Allergies As of Date: 09/27/2021 (No Known Allergies) Date Reviewed: 09/27/2021 Reviewed by: Ofelia Clay PA-C - Fully Assessed Reason for Visit: Established Patient [175] Follow Up [171] Post Op [174] Primary Visit Diagnosis:Acquired cavovarus deformity of foot, 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] Other Visit Diagnosis:Postop check [Z09] Prescriptions as of 10/05/2021 - acetaminophen (TYLENOL) 500 mg tablet Take 2 tablets by mouth every 8 hours for 28 days. - aspirin 325 mg tablet Take 1 tablet by mouth once daily for 28 days. - ergocalciferol 50,000 unit capsule (VITAMIN D2, DRISDOL) Take 1 capsule by mouth one time a week. - atorvastatin (LIPITOR) 40 mg tablet Take 40 mg by mouth once daily. Problem List As Of Date 09/27/2021 Noted Resolved Abdominal pain, epigastric [R10.13] 03/23/2009 0 (more content not included)... Normal [facility] Basic metabolic 2000 panelon 09-22-2021 Anion gap [Moles/Vol] 10 mmol/L Normal 9-18 [facility] Comment on above: Order Comment: Speci men Type: BLOOD SPECIMENOrdering Facility: [facility] Address: [address] [place] [address] Performed By: #### 2 4321-2 ####[facility] LABCLIA [id number] [place] [address] [place] Calcium [Mass/Vol] 9.5 mg/dL Normal 8.5-10.2 [facility] Comment on above: Order Comment: Speci men Type: BLOOD SPECIMENOrdering Facility: [facility] Address: [address] [place] [address] Performed By: #### 2 4321-2 ####[facility] LABCLIA [id number] [place] [address] [place] Chloride [Moles/Vol] 102 mmol/L Normal 97-105 [facility] Comment on above: Order Comment: Speci men Type: BLOOD SPECIMENOrdering Facility: [facility] Address: [address] [id number] Performed By: #### 2 4321-2 ####[facility] LABCLIA [id number] [place] [address] [place] CO2 [Moles/Vol] 25 mmol/L Normal 22-30 [facility] Comment on above: Order Comment: Speci men Type: BLOOD SPECIMENOrdering Facility: [facility] Address: [address] [place] [address] Performed By: #### 2 4321-2 ####[facility] LABCLIA [id number] [place] [address] [place] Creatinine [Mass/Vol] 0.84 mg/dL Normal 0.73-1.22 [facility] Comment on above: Order Comment: Speci men Type: BLOOD SPECIMENOrdering Facility: [facility] Address: [address] [place] [address] Performed By: #### 2 4321-2 ####[facility] LABCLIA [id number] [place] [address] [place] ESTIMATED GLOMERULAR FILTRATION RATE 104 mL/min/1.73m??? Normal >=60 [facility] Comment on above: Order Comment: Speci men Type: BLOOD SPECIMENOrdering Facility: [facility] Address: [address] [place] [address] Result Comment: Nell mated Glomerular Filtration Rate (eGFR) is calculated using the 2020 CKD-EPI creatinine equation. This equation utilizes serum creatinine, sex, and age as parameters. The creatinine assay has traceable calibration to isotope dilution-mass spectrometry. Refer to KDIGO guidelines for clinical interpretation. In patients with unstable renal function, e.g. those with acute kidney injury, the eGFR may not accurately reflect actual GFR. Performed By: #### 2 4321-2 ####[facility] LABCLIA [id number] [place] [address] [place] Glucose [Mass/Vol] 101 mg/dL High 74-99 [facility] Comment on above: Order Comment: Speci men Type: BLOOD SPECIMENOrdering Facility: [facility] Address: [address] [place], [place] [phone] Result Comment: The [place] [employer] (ADA) provides guidance for cutoff values for fasting glucose and random glucose. The ADA defines fasting as no caloric intake for at least 8 hours. Fasting plasma glucose results between 100 to 125 mg/dL indicate increased risk for diabetes (prediabetes). Fasting plasma glucose results greater than or equal to 126 mg/dL meet the criteria for diagnosis of diabetes. In the absence of unequivocal hyperglycemia, results should be confirmed by repeat testing. In a patient with classic symptoms of hyperglycemia or hyperglycemic crisis, random plasma glucose results greater than or equal to 200 mg/dL meet the criteria for diagnosis of diabetes. Reference: Standards of Medical Care in Diabetes 2016, [place] [employer] Association. Diabetes Care. 2016.39(Suppl 1). Performed By: #### 2 4321-2 ####[facility] LABCLIA [id number] [place] [address] [place] Potassium [Moles/Vol] 3.7 mmol/L Normal 3.7-5.1 [facility] Comment on above: Order Comment: Speci men Type: BLOOD SPECIMENOrdering Facility: [facility] Address: [address] [place], [place] [address] Performed By: #### 2 4321-2 ####[facility] LABCLIA [id number] [place] [address] [place] Sodium [Moles/Vol] 137 mmol/L Normal 136-144 [facility] Comment on above: Order Comment: Speci men Type: BLOOD SPECIMENOrdering Facility: [facility] Address: [address] [place], [place] [phone] Performed By: #### 2 4321-2 ####[facility] LABCLIA [id number] [place] [address] [place] Urea nitrogen [Mass/Vol] 10 mg/dL Normal 9-24 [facility] Comment on above: Order Comment: Speci men Type: BLOOD SPECIMENOrdering Facility: [facility] Address: [address] [place], [place] [id number] Performed By: #### 2 4321-2 ####[facility] LABIA [id number] [address] [place] CBC panel Auto (Bld)on 09-22 Erythrocyte distribution width (RBC) [Ratio] 13.5 % Normal 11.5-15.0 [facility] Comment on above: Order Comment: Speci men Type: BLOOD SPECIMENOrdering Facility: [facility] Address: [address] [place] [address] Performed By: #### 5 8410-2 ####[facility] LABIA [id number] [address] [place] Hematocrit (Bld) [Volume fraction] 45.0 % Normal 39.0-51.0 [facility] Comment on above: Order Comment: Speci men Type: BLOOD SPECIMENOrdering Facility: [facility] Address: [address] [place] [address] Performed By: #### 5 8410-2 ####[facility] LABIA [id number] [address] [place] Hemoglobin (Bld) [Mass/Vol] 14.8 g/dL Normal 13.0-17.0 [facility] Comment on above: Order Comment: Speci men Type: BLOOD SPECIMENOrdering Facility: [facility] Address: [address] [place], [place] [address] Performed By: #### 5 8410-2 ####[facility] LABIA [id number] [place] [address] [place] MCH (RBC) [Entitic mass] 28.4 pg Normal 26.0-34.0 [facility] Comment on above: Order Comment: Speci men Type: BLOOD SPECIMENOrdering Facility: [facility] Address: [address] [place] [address] Performed By: #### 5 8410-2 ####[facility] LABCLIA [id number] [address] [place] [facility] MCHC (RBC) [Mass/Vol] 32.9 g/dL Normal 30.5-36.0 [facility] Comment on above: Order Comment: Speci men Type: BLOOD SPECIMENOrdering Facility: [facility] Address: [address] [place], [place] [address] Performed By: #### 5 8410-2 ####[facility] LABIA [id number] [place] [address] [place] MCV (RBC) [Entitic vol] 86.4 fL Normal 80.0-100.0 [facility] Comment on above: Order Comment: Speci men Type: BLOOD SPECIMENOrdering Facility: [facility] Address: [address] [place], [place] [address] Performed By: #### 5 8410-2 ####[facility] LABIA [id number] [place] [address] [place] Nucleated RBC (Bld) [#/Vol] 10*3/uL Normal <0.01 [facility] Comment on above: Order Comment: Speci men Type: BLOOD SPECIMENOrdering Facility: [facility] Address: [address] [place] [address] Performed By: #### 5 8410-2 ####[facility] LABIA [id number] [place] [address] [place] Platelet mean volume (Bld) [Entitic vol] 10.6 fL Normal 9.0-12.7 [facility] Comment on above: Order Comment: Speci men Type: BLOOD SPECIMENOrdering Facility: [facility] Address: [address] [place], [place] [id number] Performed By: #### 5 8410-2 ####[facility] LABCLIA [id number] [place] [address] [place] Platelets (Bld) [#/Vol] 173 10*3/uL Normal 150-400 [facility] Comment on above: Order Comment: Speci men Type: BLOOD SPECIMENOrdering Facility: [facility] Address: [address] [place] [address] Performed By: #### 5 8410-2 ####[facility] LABCLIA [id number] [place] [address] [place] RBC (Bld) [#/Vol] 5.21 10*6/uL Normal 4.20-6.00 [facility] Comment on above: Order Comment: Speci men Type: BLOOD SPECIMENOrdering Facility: [facility] Address: [address] [place] [address] Performed By: #### 5 8410-2 ####[facility] LABIA [id number] [place] [address] [place] WBC (Bld) [#/Vol] 10.28 10*3/uL Normal 3.70-11.00 [facility] Comment on above: Order Comment: Speci men Type: BLOOD SPECIMENOrdering Facility: [facility] Address: [address] [place] [address] Performed By: #### 5 8410-2 ####[facility] LABCLIA [id number] [place] [address] [place] CNPIlene 09-22-2021 CNPN Telephone (PAINMN) SAL PADILLA ([id number]) 1970 M Date Time Provider Department 09/22/21 SIVA MCDERMOTT During your visit today, we recorded the following information about you: Siva Mcdermott PA-C 09/22/2021 12:44 PM Signed DOS: 09/20/2021 Type of Surgery: R subtalar arthrodesis and ankle ligament repair Surgeon : Charles Catheter site: Popliteal PNC Solution: Ropivacaine 0.2% Rates: Phone number: [phone] (pt), (Qing - mom) Discharge date: 09/22/2021 Switched to Ambit pump, educated on its use, discussed LA/SE and s/s that should be reported, patient/famiyl verbalized understanding. Will follow up with phone call. Maggi Philippe RN 09/27/2021 2:28 PM Signed DOS: 09/20/2021 Type of Surgery: R subtalar arthrodesis and ankle ligament repair Surgeon : Charles Catheter site: Popliteal PNC Solution: Ropivacaine 0.2% Rates: Phone number: [phone] (pt), (Qing - mom) Discharge date: 09/22/202109/27 Pt states nerve catheter was removed Sunday without complications. Pt denies any signs or symptoms of infection and pain remains controlled. Pt did not look for black tip at end of PNC after removal, but states PNC was removed easily. Pt reporting red itching rash on BLE and lower back. States he has took oral benadryl with little effect, and is in office now to get cast applied. Plans to have LIP look at it. Will follow up tomorrow with phone call. Encouraged pt to call apms with any further questions or concerns. Maggi Philippe RN 09/29/2021 11:13 AM Addendum DOS:?09/20/2021? Type of Surgery:?R subtalar arthrodesis and ankle ligament repair Surgeon :Jairo Catheter site: Popliteal PNC Solution:?Ropivacain e 0.2% Rates:? Phone number:?[phone] (pt), (Qing - mom) Discharge date:?09/22/2021 1000- call placed to pt at this time with no answer. Maggi Philippe RN 09/29/2021 12:44 PM Addendum DOS:?09/20/2021? Type of Surgery:?R subtalar arthrodesis and ankle ligament repair Surgeon :?Charles Catheter site: Popliteal PNC Solution:?Ropivacain e 0.2% Rates:? Phone number:?[phone] (pt), (Qing - mom) Discharge date:?09/22/202109/29 1115- Call placed to both phone numbers provided with no answer at this time. 1242- Spoke with pt who states rash is doing much better at this time. Denies any further questions or concerns. Sign off. Allergies As of Date: 09/22/2021 (No Known Allergies) Date Reviewed: 09/22/2021 Reviewed by: Aleksandar Berry RN - Fully Assessed Reason for Visit: Recheck [92] Prescriptions as of 09/29/2021 - acetaminophen (TYLENOL) 500 mg tablet Take 2 tablets by mouth every 8 hours for 28 days. - aspirin 325 mg tablet Take 1 tablet by mouth once daily for 28 days. - docusate sodium (COLACE) 100 mg capsule Take 1 capsule by mouth twice daily for 7 days. - ergocalciferol 50,000 unit capsule (VITAMIN D2, DRISDOL) Take 1 capsule by mouth one time a week. - atorvastatin (LIPITOR) 40 mg tablet Take 40 mg by mouth once daily. Problem List As Of Date 09/22/2021 Noted Resolved Abdominal pain, epigastric [R10.13] 03/23/2009 07/29/2021 Vertigo [R42] 07/29/2021 Right ankle pain [M25.571] 07/29/2021 Cerebral aneurysm [I67.1] 07/29/2021 HLD (hyperlipidemia) [E78.5] 07/29/2021 BMI 34.0-34.9,adult [Z68.34] 07/29/2021 Acquired cavovarus deformity of foot, right [M2* Foot pain [M79.673] 09/20/2021 Encounter Status:Closed by MAGGI PHILIPPE on 09/29/21 Normal [facility] CONSULT PROGon 09-22-2021 CONSULT PROG HNO ID: [id number] Author: Siva Mcdermott PA-C Service: Pain Management Author Type: Physician Piano Case And Bench Assembler Type: Consult Progress Note Filed: 10/14/2021 10:04 AM Note Text: APS POST-OPERATIVE PROGRESS NOTE SERVICE DATE: 09/22/2021 : 1970 SERVICE TIME: 850am SURGERY DATE: 09/20/2021 PRIMARY SERVICE: Orthopedics Subjective CHIEF COMPLAINT: Post-operative pain INTERVAL HPI: Sal Padilla is a 51 year old male who is POD #2, S/P Procedure(s) (LRB): ARTHRODESIS SUBTALAR (Right) REPAIR ANKLE LIGAMENT SECONDARY DISRUPTED, COLLATERAL (Right) GRAFT BONE ILIAC CREST (Right) LENGTHENING TENDON EXTREMITY LOWER (Right) with Peripheral Nerve Catheter placed on day of surgery for post-operative pain control infusing Ropivacaine 0.2% 11/19/59. Concentration increased on 09/20/21 from Ropivacaine 0.1% to Ropivacaine 0.2% and settings changed due to patient complaining of severe 7/10 pain in PACU. He also received 10cc Mepivacaine with improvement in pain. Reportedly, pt was febrile yesterday, tachycardic and had oxygen saturation of 89% on Room air. On encounter this morning, pt was awake, alert and oriented, not in acute distress. Reported surgical pain is adequately controlled.Denied shortness of breath, nausea or vomiting, ringing in the ears or metallic taste in the mouth. Currently on room air, SPO2 94%, tachycardia resolved. Catheter site without signs or symptoms of infection, no erythema, tenderness, drainage, or warmth. Sensory and motor exam within normal limits for distribution of regional block. Pre-Operative (Baseline) Pain Score: Not documented History of Chronic Pain: No Current Pain Level: 6/10 at rest 7 with ambulation on a scale of 0-10 Physical Therapy Sessions: yes Pain at Surgical Site: Yes Character: aching Duration: consistent Radiation: No Relieved: Yes - IV Pain medications, PO Pain medications, Ice, Rest and Repositioning Patient Satisfied with Pain Control: Yes Overnight Events: None Overnight Pain Interventions: no POST-OPERATIVE BLOCK: Block Type: Popliteal Nerve Catheter, Right Analgesic Regimen: Tylenol 1g q8 h Oxycontin 10mg PO BID - discontinued per primary team IV Dilaudid 0.4mg IV q4h PRN ROS LOCKSTITCH ZIPPER SETTER: Negative for headaches, negative for seizures, negative for dizziness, and negative for gait imbalance. ENT: Negative for hoarseness, negative for dysphagia, negative for tinnitus. CARDIOVASCULAR: Negative for chest pain, negative for leg swelling, negative for palpitations. RESPIRATORY: Negative for cough, negative for wheezing, negative for shortness of breath. GI: Negative for nausea, negative for vomiting, negative for constipation. DERMATOLOGY: Negative for lesions, negative for rash, negative for itching. ALLERGIES No Known Allergies Current Facility-Administere d Medications Medication Dose Route Frequency atorvastatin 40 mg tab(s) (LIPITOR) 40 mg ORAL DAILY sodium chloride 0.9 % (flush) 2-10 mL (BD POSIFLUSH) 2-10 mL INTRAVENOUS q 12 H ondansetron (PF) 4 mg injection (ZOFRAN) 4 mg INTRAVENOUS q 6 H PRN diphenhydrAMINE 25 mg injection (BENADRYL) 25 mg INTRAVENOUS q 6 H PRN aluminum-magnesium hydroxide-simethicon e 200-200-20 mg/5 mL 30 mL (MAALOX,MYLANTA,MAG- AL PLUS) 30 mL ORAL q 6 H PRN magnesium hydroxide 400 mg/5 mL 30 mL (MOM) 30 mL ORAL DAILY PRN bisacodyl 10 mg suppository (DULCOLAX) 10 mg RECTAL DAILY PRN therapeutic multivitamin-mineral s tablet (THERA-M PLUS) 1 tablet ORAL DAILY ferrous sulfate 325 mg tab(s) 325 mg ORAL BID w MEALS ascorbic acid (vitamin C) 500 mg tab(s) (VITAMIN C) 500 mg ORAL BID w MEALS docusate sodium 100 mg cap(s) (COLACE) 100 mg ORAL BID NaCl 0.9% iv flush bag 20 mL INTRAVENOUS PRN sodium chloride 0.9 % (flush) 3-5 mL (BD POSIFLUSH) 3-5 mL INTRAVENOUS q 12 H acetaminophen 1,000 mg tab(s) (TYLENOL) 1,000 mg ORAL q 8 H HYDROmorphone (PF) 0.4 mg injection (DILAUDID) 0.4 mg INTRAVENOUS q 4 H PRN aspirin, enteric coated 325 mg tab(s) 325 mg ORAL DAILY cholecalciferol 400 Units tab(s) (VITAMIN D3) 400 Units ORAL DAILY ropivacaine nerve block 0.2% (2 mg/mL) - 200 mL PERIPHERAL NERVE CATHETER CONTINUOUS And ropivacaine 0.2% (2 mg/mL) nerve block CLINICIAN DOSE 5 mL 5 mL PERIPHERAL NERVE CATHETER q 2 H PRN [MAR Hold due to Transfer] fentaNYL 50 mcg/mL 50 mcg injection (SUBLIMAZE) 50 mcg INTRAVENOUS q 10 MIN PRN ropivacaine (PF) 0.2 % in NaCl 0.9% 1,000 mL PERIPHERAL NERVE CATHETER ONE TIME oxyCODONE IR 5-10 mg tab(s) (ROXICODONE) 5-10 mg ORAL q 3 H PRN Objective PHYSICAL EXAM: BP 137/71 Pulse 87 Temp 36.8 ?C (98.2 ?F) (Oral) Resp 20 Wt 109.8 kg (242 lb 1 oz) SpO2 94% BMI 33.76 kg/m? AFFECT: Well developed, Well nourished, Alert, Awake and Oriented GENERAL APPEARANCE: Appears comfortable and Appears in good spirits IV/CATHETER SITE: Catheter site with no signs of local infection, no erythema and no discharge noted no swelling NEUR (more content not included)... Normal [facility] THERAPY NTon 09-22-2021 THERAPY NT HNO ID: [id number] Author: Balta Mahmood PT Service: Physical Therapy Author Type: Physical Therapist Type: Therapy (PT/OT/Speech/Resp) Filed: 09/22/2021 8:57 AM Note Text: Physical Therapy Treatment SERVICE DATE: 09/22/2021 SERVICE TIME: 829 to 841 ROOM: [place] [address] Recommended Discharge Disposition: Home Recommended Discharge Disposition Comments: Pt won't be able to complete therapy until he is no longer NWB Anticipated Discharge Needs: Physical Assist at Home;Supervision at Home Physical Assist at Home for: Transfers;Ambulation ;Cleaning;Laundry;Me als;Stairs;Safety;Se lf Care;Shopping;Transp ortation Supervision at Home due to: (recent sx) Recommended Discharge Equipment: No equipment needs anticipated PT 6 Clicks Score: 20 Precautions/Activity Restrictions: Weight Bearing Restrictions Precaution/Activity Restriction Comments: R cavovarus reconstruction Extremity With Weight Bearing Restricted: Right Lower Extremity Right Lower Extremity Weight Bearing Status: NWB Current Hospital Course: 51 year old yo male POD1 s/p R cavovarus reconstruction by Dr. Soto Reason for Hospital Admission: surgery Relevant Past Medical History: vertigo, HLD, cerebral aneurysm, Response to Therapy Interventions: Good participation in activities Assessment Comments: Pt continues to be fatigued with mobility as expected. Pt has wheelchair and walker at home for mobility in case crutches are too tiresome. Pt has no further questions about homegoing. Continue skilled needs due to: Functional mobility/skill impairments Physical Therapy Problem List: Pain;Impaired Self Care;Decreased Activity Tolerance;Decreased Range Of Motion;Decreased Strength;Functional Mobility Impairment;Balance Impaired Treatment Interventions: Education;Energy Conservation Training;Joint Mobility;Strengtheni ng;Functional Mobility Training;Balance Training Plan for next visit: Gait training Home Environment Patient Lives With: Family (parents) Assistance Available: 24 Hour (24 hr from parents, prn from staff/friends) Entry To Home: No Stairs Number Of Stairs To Bed/Bath: 0 Tub/Shower Type: walk-in Laundry: family assists Equipment Owned: Wheelchair;Wheeled Walker;Crutch(es);Gr ab Bars-Toilet;Hand Held Shower;Shower Chair Prior Functional Level: Within Functional Limits Prior Functional Level Comments: Pt reports IND with ADLs, utilized crutches for mobility; assist with IADLs PRN for safety. 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 Report: I am very tired, it takes about 20 minutes to go to the bathroom CURRENT FUNCTIONAL STATUS: Most recent performance Current Functional Mobility Assist Level Additional Information Rolling Supine to Sit Contact Guard Assistance (RLE) Sit to Supine Contact Guard Assistance Scooting Supervision Sit to Stand Supervision Stand to Sit Supervision Bed to Chair Supervision Bed To Chair Transfer Type: Stepping Bed To Chair Transfer Equipment: (crutches) Toilet/Commode Supervision Gait Contact Guard Assistance Gait Device: Crutch(es) Gait Distance (feet): 30' Stairs Curb Step Car Transfer Blank gay indicate activity not attempted Gait Deviations Right Lower Extremity: Weight bearing decreased General Deviations/Observati ons: Marina decreased;Flexed trunk posture Balance: Static Sitting;Dynamic Sitting;Static Standing;Dynamic Standing Static Sitting Balance: Normal Patient able to maintain steady balance without handhold support Dynamic Sitting Balance: Normal Patient accepts maximal challenge and can shift weight easily within full range in all directions Static Standing Balance: Normal Patient able to maintain steady balance without handhold support Dynamic Standing Balance: Good Patient accepts moderate challenge, able to maintain balance while picking up object off floor -HLM: 7: Walk 25 feet or more Learning/Educational Needs: Discharge Plan;Equipment;Funct ional Activities/Mobility; Plan of Care;Precautions;Srinivasa abilitation Techniques and Procedures;Safety Goals for Plan of Care: Patient /Caregiver Goals: Go Home Goals: Patient will demonstrate progress with functional mobility to allow safe discharge to home with available support and/or physical assistance. Progress Toward Goals: Progressing as expected Rehab Potential: Good Patient will be discontinued from Physical Therapy when no further skilled needs are identified in this setting. PLAN: PT Frequency: Once daily Plan of Care developed with: Patient TREATMENT INTERVENTIONS: Therapy Diagnosis: Reduced mobility-other;Decre ased activities of daily living (ADL);Muscle Weakness (generalized);Abnorm alities of gait and mobility-other;Gener al symptoms and signs-other;Unsteadi ness on feet Interventions Provided: Therapeutic Activity (30543) Therapeutic Activity (81390) Treatment Minutes: 12 $ Therapeutic Activity (81310) Billed Units: 1 unit Training AND education provided in: Anatomy an (more content not included)... Normal [facility] CONSULT PROGon 09-21-2021 CONSULT PROG HNO ID: [id number] Author: Siva Mcdermott PA-C Service: Pain Management Author Type: Physician Piano Case And Bench Assembler Type: Consult Progress Note Filed: 09/21/2021 9:04 AM Note Text: APS POST-OPERATIVE PROGRESS NOTE SERVICE DATE: 09/21/2021 : 1970 SERVICE TIME: 0851am SURGERY DATE: 09/20/2021 PRIMARY SERVICE: Orthopedics Subjective CHIEF COMPLAINT: Post-operative pain INTERVAL HPI: Sal Padilla is a 51 year old male who is POD #1, S/P Procedure(s) (LRB): ARTHRODESIS SUBTALAR (Right) REPAIR ANKLE LIGAMENT SECONDARY DISRUPTED, COLLATERAL (Right) GRAFT BONE ILIAC CREST (Right) LENGTHENING TENDON EXTREMITY LOWER (Right) with Peripheral Nerve Catheter placed on day of surgery for post-operative pain control infusing Ropivacaine 0.2% 11/19/59/. Concentration increased yesterday from Ropivacaine 0.1% to Ropivacaine 0.2% and setting changed due to patient complaining of severe 7/10 pain in PACU.He also received 10cc Mepivacaine with improvement in pain. On encounter this morning, pt was awake, alert and oriented, not in acute distress. Reported pain is adequately controlled, rated it 6/10. Denied shortness of breath, nausea or vomiting, ringing in the ears or metallic taste in the mouth. Catheter site without signs or symptoms of infection, no erythema, tenderness, drainage, or warmth. Sensory and motor exam within normal limits for distribution of regional block. Pre-Operative (Baseline) Pain Score: Not documented History of Chronic Pain: No Current Pain Level: 6/10 at rest 7 with ambulation on a scale of 0-10 Physical Therapy Sessions: yes Pain at Surgical Site: Yes Character: aching Duration: consistent Radiation: No Relieved: Yes - IV Pain medications, PO Pain medications, Ice, Rest and Repositioning Patient Satisfied with Pain Control: Yes Overnight Events: None Overnight Pain Interventions: no POST-OPERATIVE BLOCK: Block Type: Popliteal Nerve Catheter, Right Analgesic Regimen: Tylenol 1g q8 h Oxycontin 10mg PO BID (per ortho) IV Dilaudid 0.4mg IV q4h PRN ROS LOCKSTITCH ZIPPER SETTER: Negative for headaches, negative for seizures, negative for dizziness, and negative for gait imbalance. ENT: Negative for hoarseness, negative for dysphagia, negative for tinnitus. CARDIOVASCULAR: Negative for chest pain, negative for leg swelling, negative for palpitations. RESPIRATORY: Negative for cough, negative for wheezing, negative for shortness of breath. GI: Negative for nausea, negative for vomiting, negative for constipation. DERMATOLOGY: Negative for lesions, negative for rash, negative for itching. ALLERGIES No Known Allergies Current Facility-Administere d Medications Medication Dose Route Frequency - atorvastatin 40 mg tab(s) (LIPITOR) 40 mg ORAL DAILY - sodium chloride 0.9 % (flush) 2-10 mL (BD POSIFLUSH) 2-10 mL INTRAVENOUS q 12 H - ondansetron (PF) 4 mg injection (ZOFRAN) 4 mg INTRAVENOUS q 6 H PRN - diphenhydrAMINE 25 mg injection (BENADRYL) 25 mg INTRAVENOUS q 6 H PRN - aluminum-magnesium hydroxide-simethicon e 200-200-20 mg/5 mL 30 mL (MAALOX,MYLANTA,MAG- AL PLUS) 30 mL ORAL q 6 H PRN - magnesium hydroxide 400 mg/5 mL 30 mL (MOM) 30 mL ORAL DAILY PRN - bisacodyl 10 mg suppository (DULCOLAX) 10 mg RECTAL DAILY PRN - therapeutic multivitamin-mineral s tablet (THERA-M PLUS) 1 tablet ORAL DAILY - ferrous sulfate 325 mg tab(s) 325 mg ORAL BID w MEALS - ascorbic acid (vitamin C) 500 mg tab(s) (VITAMIN C) 500 mg ORAL BID w MEALS - docusate sodium 100 mg cap(s) (COLACE) 100 mg ORAL BID - NaCl 0.9% iv flush bag 20 mL INTRAVENOUS PRN - sodium chloride 0.9 % (flush) 3-5 mL (BD POSIFLUSH) 3-5 mL INTRAVENOUS q 12 H - NaCl 0.9% iv infusion 75 mL/hr INTRAVENOUS CONTINUOUS - acetaminophen 1,000 mg tab(s) (TYLENOL) 1,000 mg ORAL q 8 H - oxyCODONE ER 10 mg tab(s) (OxyCONTIN) 10 mg ORAL q 12 H - HYDROmorphone (PF) 0.4 mg injection (DILAUDID) 0.4 mg INTRAVENOUS q 4 H PRN - aspirin, enteric coated 325 mg tab(s) 325 mg ORAL DAILY - cholecalciferol 400 Units tab(s) (VITAMIN D3) 400 Units ORAL DAILY - ropivacaine nerve block 0.2% (2 mg/mL) - 200 mL PERIPHERAL NERVE CATHETER CONTINUOUS And - ropivacaine 0.2% (2 mg/mL) nerve block CLINICIAN DOSE 5 mL 5 mL PERIPHERAL NERVE CATHETER q 2 H PRN - [MAR Hold due to Transfer] fentaNYL 50 mcg/mL 50 mcg injection (SUBLIMAZE) 50 mcg INTRAVENOUS q 10 MIN PRN - ropivacaine (PF) 0.2 % in NaCl 0.9% 1,000 mL PERIPHERAL NERVE CATHETER ONE TIME Objective PHYSICAL EXAM: Patient Vitals for the past 4 hrs: BP Temp Temp src Pulse Resp SpO2 09/21/21 0530 115/63 36.9 ?C (98.4 ?F) Oral 76 18 96 % AFFECT: Well developed, Well nourished, Alert, Awake and Oriented GENERAL APPEARANCE: Appears comfortable and Appears in good spirits IV/CATHETER SITE: Catheter site with no signs of local infection, no erythema and no discharge noted no swelling NEURO: Diminished sensation with distribution MOTOR: Right Upper Extremity (more content not included)... 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 [place]. [id number] Silvia This note was completed by: Silvia Arguello 1909: Ortho salesperson [employer] cars [id number] was repaged about same. Await return page to discuss HR and O2 needs. 1912: spoke to ortho resident salesperson new cars, no new orders / concerns at this time. Will continue monitoring and encourage mobility, hydration PO and IS use aggressively. Normal [facility] THERAPY NTon 09-21-2021 THERAPY NT HNO ID: [id number] Author: Michael Tilley, OT/L Service: Occupational Therapy Author Type: Occupational Therapist Type: Therapy (PT/OT/Speech/Resp) Filed: 09/21/2021 9:57 AM Note Text: Occupational Therapy Evaluation SERVICE DATE: 09/21/2021 SERVICE TIME: 855 to 937 ROOM: [place] [address] Recommended Discharge Disposition: Home Recommended Discharge Disposition Comments: with physical assist PRN for safety. Anticipated Discharge Needs: Physical Assist at Home;Supervision at Home Physical Assist at Home for: Transfers;Ambulation ;Cleaning;Laundry;Me als;Stairs;Safety;Se lf Care;Shopping;Transp ortation Supervision at Home due to: (recent sx) Recommended Discharge Equipment: To Be Determined (May benefit from hog dropper, sock aide, LH shoe horn, and/or BSC) OT 6 Clicks Score: 20 Precautions/Activity Restrictions: Weight Bearing Restrictions Precaution/Activity Restriction Comments: R cavovarus reconstruction Extremity With Weight Bearing Restricted: Right Lower Extremity Right Lower Extremity Weight Bearing Status: NWB Current Hospital Course: 51 year old yo male POD1 s/p R cavovarus reconstruction by Dr. Soto Reason for Hospital Admission: surgery Relevant Past Medical History: vertigo, HLD, cerebral aneurysm, Response to Therapy Interventions: Good participation in activities Continue skilled needs due to: Functional impairment Occupational Therapy Problem List: Education Deficit;Impaired Self Care;Decreased Range Of Motion;Decreased Activity Tolerance;Decreased Strength Cognition/Communicat ion Deficits Responsiveness: Alert, Awake Cognitive Activities Performed: AANDOx4 Treatment Interventions: Education;Self Care / Home Management;Strengthe milana;Functional Mobility Training Plan for next visit: Dressing training, Shower/tub transfer training, Standing balance, Standing tolerance, Fall prevention Home Environment Patient Lives With: Family (parents) Assistance Available: 24 Hour (24 hr from parents, prn from staff/friends) Entry To Home: No Stairs Number Of Stairs To Bed/Bath: 0 Tub/Shower Type: walk-in Laundry: family assists Equipment Owned: Wheelchair;Wheeled Walker;Crutch(es);Gr ab Bars-Toilet;Hand Held Shower;Shower Chair Prior Functional Level: Within Functional Limits Prior Functional Level Comments: Pt reports IND with ADLs, utilized crutches for mobility; assist with IADLs PRN for safety. 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 CURRENT FUNCTIONAL STATUS: Most recent performance Current Activities of Daily Living Assist Level Additional Information Feeding Set Up Grooming Modified Independent (seated) Bathing Upper Body Modified Independent (seated) Bathing Lower Body Minimal Assistance (seated) Dressing Upper Body Modified Independent (seated) Dressing Lower Body Moderate Assistance (seated; with use of AD) Toileting Minimal Assistance Instrumental Activities of Daily Living Assist Level Additional Information Meal/Beverage Prep Cleaning Laundry Medication Management with Strategies Functional Mobility Assist Level Additional Information Rolling Supine to Sit Minimal Assistance (transition of R LE; bed in elevated position) Sit to Supine Minimal Assistance (transition of R LE; bed in elevated positon.) Scooting Supervision Sit to Stand Contact Guard Assistance Stand to Sit Contact Guard Assistance Bed to Chair Toilet/Commode Contact Guard Assistance Shower Functional Mobility Stand By Assistance Crutch(es) (short household distance) Blank gay indicate activity not attempted Learning/Educational Needs: Discharge Plan;Equipment;Famil y Education/Training;F unctional Activities/Mobility; Rehabilitation Techniques and Procedures;Safety;Se lf Care Goals for Plan of Care: Patient /Caregiver Goals: Go Home Goals: Patient will demonstrate progress with self-care, cognitive and/or coping needs identified to allow safe discharge to home with available support and/or physical assistance. Progress Toward Goals: Progressing as expected Rehab Potential: Good Patient will be discontinued from Occupational Therapy when no further skilled needs are identified in this setting. PLAN: OT Frequency: 2 times per week Plan of Care developed with: Patient TREATMENT INTERVENTIONS: Therapy Diagnosis: Reduced mobility-other;Decre ased activities of daily living (ADL);Muscle Weakness (generalized) Interventions Provided: Evaluation;Self Half-Way Management (62463) $ Evaluation-Low (06047) Billed Units: 1 unit Self Half-Way Management (80084) Treatment Minutes: 23 $ Self Half-Way Management (88446) Billed Units: 2 units Training AND education provided in: Adaptive equipment / DME, Activity adaption / compensatory strategies, Bed mobility, Benefits of in-hospital mobility, Discharge planning, Functional mobility involving ADLs, Lower extremity bathing, Lower ex (more content not included)... Normal [facility] THERAPY NT HNO ID: [id number] Author: Balta Mahmood PT Service: Physical Therapy Author Type: Physical Therapist Type: Therapy (PT/OT/Speech/Resp) Filed: 09/21/2021 9:11 AM Note Text: Physical Therapy Evaluation SERVICE DATE: 09/21/2021 SERVICE TIME: 801 to 854 ROOM: [place] [address] Recommended Discharge Disposition: Home Recommended Discharge Disposition Comments: Pt won't be able to complete therapy until he is no longer NWB Anticipated Discharge Needs: Physical Assist at Home;Supervision at Home Physical Assist at Home for: Cleaning;Laundry;Padmini pping;Transportation Supervision at Home due to: (recent surgery) Recommended Discharge Equipment: No equipment needs anticipated PT 6 Clicks Score: 20 Precautions/Activity Restrictions: Weight Bearing Restrictions Precaution/Activity Restriction Comments: R cavovarus reconstruction Extremity With Weight Bearing Restricted: Right Lower Extremity Right Lower Extremity Weight Bearing Status: NWB Current Hospital Course: 51 year old yo male POD1 s/p R cavovarus reconstruction by Dr. Soto Reason for Hospital Admission: surgery Relevant Past Medical History: vertigo, HLD, cerebral aneurysm, Response to Therapy Interventions: Good participation in activities Assessment Comments: Pt moving well with first time out of bed using crutches. Pt was initially unsteady but this improved with further ambulation. Pt able to use the rest room without physical assistance. PT concerned about amount of help required at discharged. Pt encouraged to call staff/friends for inital week until cast is placed. Continue skilled needs due to: Functional mobility/skill impairments Physical Therapy Problem List: Pain;Impaired Self Care;Decreased Activity Tolerance;Decreased Range Of Motion;Decreased Strength;Functional Mobility Impairment;Balance Impaired Treatment Interventions: Education;Energy Conservation Training;Joint Mobility;Strengtheni ng;Functional Mobility Training;Balance Training Plan for next visit: Gait training Home Environment Patient Lives With: Family (parents) Assistance Available: 24 Hour (24 hr from parents, prn from staff/friends) Entry To Home: No Stairs Number Of Stairs To Bed/Bath: 0 Prior Functional Level: Within Functional Limits Prior Functional Level Comments: Pt reports IND with all activities prior to surgery. 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 Report: My parents are 80, so I was wondering if I needed to get more help at home CURRENT FUNCTIONAL STATUS: Most recent performance Current Functional Mobility Assist Level Additional Information Rolling Supine to Sit Contact Guard Assistance (RLE) Sit to Supine Contact Guard Assistance (RLE) Scooting Supervision Sit to Stand Supervision Stand to Sit Supervision Bed to Chair Supervision Bed To Chair Transfer Type: Stepping Bed To Chair Transfer Equipment: (crutches) Toilet/Commode Supervision Gait Contact Guard Assistance Gait Device: Crutch(es) Gait Distance (feet): 30'x2 Stairs Curb Step Car Transfer Blank gay indicate activity not attempted Gait Deviations Right Lower Extremity: Weight bearing decreased General Deviations/Observati ons: Marina decreased;Flexed trunk posture Balance: Static Sitting;Dynamic Sitting;Static Standing;Dynamic Standing Static Sitting Balance: Normal Patient able to maintain steady balance without handhold support Dynamic Sitting Balance: Normal Patient accepts maximal challenge and can shift weight easily within full range in all directions Static Standing Balance: Normal Patient able to maintain steady balance without handhold support Dynamic Standing Balance: Good Patient accepts moderate challenge, able to maintain balance while picking up object off floor -HLM: 7: Walk 25 feet or more Learning/Educational Needs: Discharge Plan;Equipment;Funct ional Activities/Mobility; Plan of Care;Precautions;Srinivasa abilitation Techniques and Procedures;Safety Goals for Plan of Care: Patient /Caregiver Goals: Go Home Goals: Patient will demonstrate progress with functional mobility to allow safe discharge to home with available support and/or physical assistance. Rehab Potential: Good Patient will be discontinued from Physical Therapy when no further skilled needs are identified in this setting. PLAN: PT Frequency: Once daily Plan of Care developed with: Patient TREATMENT INTERVENTIONS: Therapy Diagnosis: Reduced mobility-other;Decre ased activities of daily living (ADL);Muscle Weakness (generalized);Abnorm alities of gait and mobility-other;Gener al symptoms and signs-other;Unsteadi ness on feet Interventions Provided: Evaluation;Therapeut ic Activity (26146);Gait Training (46438) $ Evaluation-Low (09221) Billed Units: 1 unit Therapeutic Activity (48843) Treatment Minutes: 23 $ Therapeutic Activity (18342) Billed Units: 2 units Gait Training (80207) Treatment Minutes: 15 $ Gait Training (18266) Billed Units: 1 unit Training A (more content not included)... Normal [facility] ANES POSTPROC EVALon 022 ANES POSTPROC EVAL HNO ID: [id number] Author: Ricco Melo MD Service: ? Author Type: Anesthesiologist Type: Anesthesia Postprocedure Evaluation Filed: 09/20/2021 1:06 PM Note Text: POST ANESTHESIA EVALUATION NOTE : 1970 Procedure Summary Date: 09/20/21 Room / Location: [address] [facility] Anesthesia Start: 727 Anesthesia Stop: 1258 Procedures: ARTHRODESIS SUBTALAR (Right Ankle) REPAIR ANKLE LIGAMENT SECONDARY DISRUPTED, COLLATERAL (Right Ankle) GRAFT BONE ILIAC CREST (Right Pelvis) LENGTHENING TENDON EXTREMITY LOWER (Right Ankle) Diagnosis: Acquired cavovarus deformity of foot, right Surgeons: Milla Soto MD Responsible Provider: Ricco Melo MD Anesthesia Type: general ASA Status: 2 Anesthesia Type: general Airway Type: ETT Last Vitals Vitals Value Taken Time BP 122/64 09/20/21 1300 Temp 36 ?C (96.8 ?F) 09/20/21 1259 Pulse 73 09/20/21 1301 Resp 14 09/20/21 1301 SpO2 95 % 09/20/21 1301 Vitals shown include unvalidated device data. Post Anesthesia Patient Status Patient Evaluation: bedside. Anticipated Disposition: inpatient floor planned admission. Neurological Status: aware and responsive. Pulmonary Status: breathing comfortably on supplemental oxygen Airway Control: returned to baseline unsupported. Cardiovascular Status: stable. Pain Management: clinically adequate Postoperative Hydration: acceptable. Intraoperative Events: no significant anesthesia events Post Operative Nausea/Vomiting Status: no significant post operative nausea or vomiting Anesthetic Observations: Recommendation: continue current plan of care. Anesthesia Observations No Documentation SIGNATURE: Ricco Melo MD PATIENT NAME: Sal Padilla DATE: September 20, 2021 TIME: 1:03 PM CSN: [id number] Normal [facility] ANES PRE-OPon 09-20-2021 ANES PRE-OP HNO ID: [id number] Author: Gucci Camacho MD Service: ? Author Type: Anesthesiologist Type: Anesthesia Preprocedure Evaluation Filed: 09/20/2021 7:54 AM Note Text: ANESTHESIOLOGY DAY OF SURGERY NOTE : 1970 Procedure Information Anesthesia Start Date/Time: 09/20/21727 Procedures: ARTHRODESIS SUBTALAR (Right Ankle) REPAIR ANKLE LIGAMENT SECONDARY DISRUPTED, COLLATERAL (Right Ankle) GRAFT BONE ILIAC CREST (Right Pelvis) LENGTHENING TENDON EXTREMITY LOWER (Right Ankle) Location: [facility] Surgeons: Milla Soto MD Estimated body mass index is 33.75 kg/m? as calculated from the following: Height as of 09/02/21: 180.3 cm (5' 11). Weight as of 09/02/21: 109.8 kg (242 lb). Most recent hematocrit and potassium results: Hematocrit 45.3 09/09/2021 Potassium 3.8 09/09/2021 Relevant Problems CARDIO (+) Cerebral aneurysm I - PHYSICAL EVALUATION AIRWAY Patient intubated: No. Tracheostomy tube not present Mallampati: III. TM distance: >3 FB. Neck ROM: full ROM without neurological symptoms. Mouth opening: adequate. Short neck: no. Thick neck: no II - ANESTHESIA PLAN ASA Score: 2 Anesthetic Plan: general Patient / Surrogate agrees to blood products: Yes Vitals Value Taken Time BP 114/64 09/20/21 0716 Pulse 75 09/20/21 0720 Resp 15 09/20/21 0720 Temp 36.3 ?C (97.3 ?F) 09/20/21 0559 SpO2 93 % 09/20/21 0720 Vitals shown include unvalidated device data. Facility-Administere d Medications as of 09/20/2021 Medication Dose Route Frequency - [MAR Hold due to Transfer] lidocaine (PF) 10 mg/mL (1 %) 1-2 mg injection (XYLOCAINE) 0.1-0.2 mL INTRADERMAL PRN Or - [MAR Hold due to Transfer] lidocaine 1% 0.25 mL subcutaneous j-tip syringe (XYLOCAINE) 0.25 mL SUBCUTANEOUS PRN - [MAR Hold due to Transfer] lactated ringers iv infusion 5-30 mL/hr INTRAVENOUS CONTINUOUS - [MAR Hold due to Transfer] ceFAZolin iv piggyback 2 g in D5W (iso-osmotic) 100 mL (ANCEF) 2 g INTRAVENOUS Pre-Op Once - [COMPLETED] vancomycin 1.5 g in D5W 250 mL (VANCOCIN) 1.5 g INTRAVENOUS Pre-Op Once Outpatient Medications as of 09/20/2021 Medication Sig - [] ondansetron (ZOFRAN) 4 mg tablet Take 1 tablet by mouth every 8 hours as needed for nausea/vomiting. (Patient not taking: Reported on 08/11/2021 ) - [] docusate sodium (COLACE) 100 mg capsule Take 1 capsule by mouth twice daily. (Patient not taking: Reported on 08/11/2021 ) - atorvastatin (LIPITOR) 40 mg tablet Take 40 mg by mouth once daily. I have interviewed and examined the patient. I have reviewed the medical record and/or the pre-anesthesia evaluation, pertinent labs, and test results. This contains updated information obtained within 48 hours of Surgery/Procedure. SIGNATURE: Gucci Camacho MD PATIENT NAME: Sal Padilla DATE: September 20, 2021 TIME: 7:54 AM CSN: [id number] Normal [facility] BRIEF OP NOTon 09-20-2021 BRIEF OP NOT HNO ID: [id number] Author: Adrian Han MD Service: Orthopaedic Surgery Author Type: Fellow Type: Brief Op Note Filed: 09/20/2021 12:22 PM Note Text: BRIEF OPERATIVE / PROCEDURE NOTE LOG ID: [id number] SURGERY/PROCEDURE DATE: 09/20/2021 INCISION/PROCEDURE START TIME: 8:30 AM INCISION CLOSE/PROCEDURE END TIME: SURGEON(S)/PROCEDURA LIST(S) AND ORAL SURGEON(S): Surgeon(s) and Role: * Milla Soto MD - Primary * Adrian Han MD - Fellow Geophysical Observer: Michael Souza SA SURGERY/PROCEDURE(S) : Right foot cavus repair ANESTHESIA: General FINDINGS: Right foot cavus ESTIMATED BLOOD LOSS: 30 mls SPECIMENS: None COMPLICATIONS: None . PRE-OP/PRE-PROCEDURE DIAGNOSIS: Right foot cavus POST-OP/POST-PROCEDU RE DIAGNOSIS: Same as Preop SIGNATURE: Adrian Han MD PATIENT NAME: Sal Padilla DATE: September 20, 2021 TIME: 12:21 PM [facility] 09-20-2021 [facility] HNO ID: [id number] Author: Yun Cross MD Service: Orthopaedic Surgery Author Type: Resident Type: Discharge Summary Filed: 09/22/2021 7:42 AM Note Text: Attestation signed by Milla Soto MD at 09/22/2021 11:33 AM Milla Soto MD ORTHOPEDIC SURGERY DISCHARGE SUMMARY ADMISSION DATE: 09/20/2021 DISCHARGE DATE: 09/22/21 Attending Physician: Milla Soto MD Reason for Hospitalization: Right cavus foot Admitting Diagnosis: Right cavus foot Discharge Diagnosis: Right cavus foot reconstruction Additional Diagnoses: ACTIVE PROBLEM LIST Vertigo Right Ankle Pain Cerebral Aneurysm Hld (Hyperlipidemia) Bmi 34.0-34.9,Adult Acquired Cavovarus Deformity of Foot, Right Surgeries During Hospitalization: Procedure(s) (LRB): ARTHRODESIS SUBTALAR (Right) REPAIR ANKLE LIGAMENT SECONDARY DISRUPTED, COLLATERAL (Right) GRAFT BONE ILIAC CREST (Right) LENGTHENING TENDON EXTREMITY LOWER (Right) Procedures During Hospitalization: Procedure(s) (LRB): ARTHRODESIS SUBTALAR (Right) REPAIR ANKLE LIGAMENT SECONDARY DISRUPTED, COLLATERAL (Right) GRAFT BONE ILIAC CREST (Right) LENGTHENING TENDON EXTREMITY LOWER (Right) Consultations: Physical Therapy Case Management Hospital Course: The patient is a 51 year old male who has been followed by Dr. Milla Soto MD, MD in clinic for Arthritis. It was determined he would benefit from surgery. The procedure, its risks, benefits, and potential complications were discussed in detail with the patient prior to surgery. Understanding of all topics was conveyed by the patient, and consent was given for surgery. The patient was electively admitted to the [facility] on 09/20/2021. Surgery was scheduled and on 09/20/2021 he underwent a Procedure(s) (LRB): ARTHRODESIS SUBTALAR (Right) REPAIR ANKLE LIGAMENT SECONDARY DISRUPTED, COLLATERAL (Right) GRAFT BONE ILIAC CREST (Right) LENGTHENING TENDON EXTREMITY LOWER (Right) with GETA. The procedure was tolerated well and he was sent to the post operative recovery room in stable condition, where he also did well. He was subsequently sent to his hospital room for postoperative management. Once on the floor his postoperative course was unremarkable and he did well. His diet was advanced which he tolerated. His pain was well controlled on oral medication alone prior to discharge. He worked with Physical and Occupational Therapy who recommended he be discharged home. His dressing remained clean dry and intact throughout his stay. He remained afebrile with stable vital signs throughout his stay. He was stable for discharge to home on the date listed above. Complete and comprehensive discharge instructions were provided to the patient as well as necessary prescriptions. The patient had no further questions and was advised to call with any questions, concerns, or problems. Patient was hemodynamically stable postoperatively. Relevant labs included: Hemoglobin (g/dL) Date Value 09/09/2021 15.6 Hematocrit (%) Date Value 09/09/2021 45.3 Discharge Antibiotics: None Prior to surgery the patient was treated with antibiotics and continued with antibiotics 24 hours postoperatively Transfers: PACU and then to the hospital surgical floor when PACU criteria was met. DVT Prophylaxis: Aspirin to reduce risk of bleeding Pain Control: Oral narcotics Complications: Continued throughout the hospital course without complications. Patient Condition @ Discharge: Stable Discharge Disposition: Home with Self Care Other Information: None Discharge Activity/Weight Bearing Status: Non-weight bearing Information Provided to Patient: none The patient was instructed to follow-up as listed below. Future Appointments Date Time Provider Department Center 09/27/2021 2:40 PM [facility] Discharge Medications: Current Discharge Medication List START taking these medications aspirin 325 mg Take 325 mg by mouth once daily. Qty: 28 tablet Refills: 0 ondansetron (ZOFRAN) 4 mg Take 4 mg by mouth every 12 hours as needed for nausea/vomiting. Qty: 14 tablet Refills: 0 docusate sodium (COLACE) 100 mg Take 100 mg by mouth twice daily. Qty: 14 capsule Refills: 0 oxyCODONE IR (ROXICODONE) 5-10 mg Take 5-10 mg by mouth every 4 hours as needed for pain. Qty: 28 tablet Refills: 0 Associated Diagnoses:Acquired cavovarus deformity of foot, right ergocalciferol (vitamin D2) (DRISDOL) 50,000 Units Take 50,000 Units by mouth one time a week. Qty: 4 capsule Refills: 0 CONTINUE these medications which have NOT CHANGED atorvastatin (LIPITOR) 40 mg Take 40 mg by mouth once daily. SIGNATURE: Adrian Han MD PATIENT NAME: Sal Padilla DATE: September 20, 2021 TIME (more content not included)... Normal [facility] CONSULTon 09-20-2021 CONSULT HNO ID: [id number] Author: Jorgito Galaviz DO Service: Anesthesiology Author Type: Resident Type: Consults Filed: 09/20/2021 7:50 AM Note Text: Attestation signed by Ayla Marquez MD at 09/20/2021 10:20 AM Single femoral nerve Block and popliteal nerve catheter were performed successfully preop with moderate sedation. Pt seen and case discussed with resident confirmed hale portions of the exam. agreed with above plan as mentioned in resident note. Ayla Marquez MD Anesthesia Pain Service Consult Note PATIENT NAME: Sal Padilla : 1970 Consults Service Date Time: 09/20/2021 6:40 AM Service Requesting Consult: Orthopedics Opinion/Advice Regarding: Consultation regarding post operative pain following ankle/lower extremity surgery. The surgeon requesting our opinion regarding the feasibility for nerve blocks. Subjective Chief Complaint: Post-operative (Expected moderate to sever postoperative pain) INTERVAL HPI Sal Padilla is a 51 year old male who is POD #0,S/P ARTHRODESIS SUBTALAR, REPAIR ANKLE LIGAMENT SECONDARY DISRUPTED, COLLATERAL, GRAFT BONE ILIAC CREST, LENGTHENING TENDON EXTREMITY LOWER who reports pain that began Anticipating Postoperative pain following ankle/lower extremity surgery and is described as: Location of Pain: RLE Pain Duration: 6 to 24 hours History of chronic pain: no COMMODITIES CLERK Patient on IV COMMODITIES CLERK?: No , Block Candidate for Pre-Op Block?: Yes Anticipated Block Type: Catheter placement, popliteal sciatic and sciatic Block Laterality: Right PDMP Verification: PDMP website checked and validated Plan Patient Analgesic Options Via: PNC Plan Discussed With: Patient A consult placed by the surgical team regarding post operative pain following ankle/lower extremity surgery. Expected pain is variable following this incision but usually it is a moderate to sever pain , sharp and stabbing. May restrict PT post surgery. Brachial Plexus block above the clavicle, is considered a relatively safe procedure with minimal complication however, it reduce the amount of pain as well as the need for narcotics significantly and change the pattern of pain to a tolerable , pressure type of pain. Discussed the Risks , benefits and alternatives of nerve block in addition to multimodal analgesia. The patient agree to proceed. The complications listed are very rare and include; Bleeding, infection, occasional paresthesia/ weakness of the lower extremity lasing longer than the duration of the block. Objective APS Progress Note ROS BP 142/85 Pulse 76 Temp 36.3 ?C (97.3 ?F) (Temporal) Resp 16 SpO2 96% Physical Exam Sensory/Motor Exam No intake or output data in the 24 hours ending 09/20/21 0747 Lab Results: Hemoglobin 15.6 09/09/2021 Hematocrit 45.3 09/09/2021 Platelet Count 177 09/09/2021 Radiology: N/A Lines/Drains/Airways : Lines, Drains, and Airways Line Peripheral 09/20/21 0552 Admission to Hospital Short Left Forearm 16 Gauge <1 day Problem List * No active hospital problems. * Past Medical History PAST MEDICAL HISTORY Diagnosis Date - Abdominal pain, epigastric - Acquired cavovarus deformity of foot, right - Acute gastritis without mention of hemorrhage - Brain aneurysm - Cholecystitis - Fracture of right foot 2003 - History of meniscal tear - Hyperlipidemia Past Surgical History PAST SURGICAL HISTORY Procedure Laterality Date - ARTHROSCOPIC HARDWARE REMOVAL Right 07/2021 REMOVAL HARDWARE FOOT - CHOLECYSTECTOMY W/CHOLANGIOGRAPHY 04/05/2009 - EGD TRANSORAL BIOPSY SINGLE/MULTIPLE 03/25/2009 nodular/gastritis - FOOT SURGERY HX Right 2020 - KNEE RIGHT OP SURGERY Right 2019 torn meniscus repair Family History FAMILY HISTORY Problem Relation Age of Onset - No Known Problems Mother - Prostate Cancer Father Social History Social History Tobacco Use - Smoking status: Former Smoker Quit date: 04/09/2003 Years since quittin.4 - Smokeless tobacco: Never Used - Tobacco comment: chew Substance Use Topics - Alcohol use: Yes Alcohol/week: 2.5 standard drinks Types: 1 Cans of Beer (12oz) per week Comment: 1-2 x per month. - Drug use: No Prior to Admission Medications atorvastatin (LIPITOR) 40 mg tablet, Take 40 mg by mouth once daily., Disp: , Rfl: , 09/18/2021 Allergies: ALLERGIES No Known Allergies Current Hospital Medications Current Facility-Administere d Medications Medication Dose Route Frequency - [MAR Hold due to Transfer] lidocaine (PF) 10 mg/mL (1 %) 1-2 mg injection (XYLOCAINE) 0.1-0.2 mL INTRADERMAL PRN Or - [MAR Hold due to Transfer] lidocaine 1% 0.25 mL subcutaneous j-tip syringe (XYLOCAINE) 0.25 mL SUBCUTANEOUS PRN - [MAR Hold due to Transfer] lactated ringers iv infu (more content not included)... Normal [facility] NURSING PROGon 09-20-2021 NURSING PROG HNO ID: [id number] Author: Eunice Foreman, CORRY Service: ? Author Type: Registered Nurse Type: Nursing Progress Note Filed: 09/20/2021 9:55 PM Note Text: Pt has not voided since catheter removal at 1300. Bladder scanned for 327 ml in bladder. Ortho paged to clarify is pt should be straigh cathd or have a galvan inserted. Normal [facility] OPERATIVE NOon 09-20-2021 OPERATIVE NO HNO ID: [id number] Author: Milla Soto MD Service: Orthopaedic Surgery Author Type: Physician Type: Operative Report Filed: 09/20/2021 1:20 PM Note Text: [place] [id number] [place] ?? OPERATIVE REPORT ?? NAME:?NORA PADILLA ?? CLINIC#:?[id number] ?? DATE:?09/20/2021?A GE:?51 ? SURGEON: Milla Soto M.D. ?? ORAL SURGEON:???Adrian Han,?Bj.Marisa? ORAL SURGEON: ? I was present for and participated in 100% of this procedure.?No qualified residents were available to assist. Dr. Robert Vasquez was critical to approach, joint preparation, internal fixation, ligament reconstruction, and closure.? This procedure was performed using #22 modifier. It was a revision surgery performed thru an altered surgical field and therefore took approximately twice as long as primary subtalar fusion. OPERATION: 1.?Right?subtalar arthrodesis. 2.?Right iliac?crest bone graft small. 3. Right achilles tendon lengthening.? 4. Right ankle lateral ligament reconstruction. ? Incision/Procedure Start Time: 8:30 AM Incision Close/Procedure End Time: 12:39 PM ? ANESTHESIA: ?General endotracheal. ? PREOPERATIVE DIAGNOSIS: 1. 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 2. Right ankle equinus. 3. Right ankle instability 4. Right foot cavovarus deformity, acquired. ? ? POSTOPERATIVE DIAGNOSIS: 1. 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 2. Right ankle equinus. 3. Right ankle instability 4. Right foot cavovarus deformity acquired. ? ? OPERATIVE INDICATIONS: ?The patient is a 51-year-old male, who previously underwent failed cavovarus foot reconstruction at [facility]. He now has residual subtalar joint and ankle instability that has failed nonsurgical treatment. He has elected to proceed with subtalar joint fusion with achilles lengthening and lateral ligament reconstruction. He has been counseled regarding the risks associated with the ?surgery. ?Risks discussed include infection, bleeding, damage to nerves and blood ?vessels, wound dehiscence, nonunion, malunion, symptomatic hardware, need for ?hardware removal, need for further surgery, incomplete relief of pain and/or instability, inability to ?return to desired level of function, DVT, PE, cardiopulmonary complications, and ?. ?All questions were answered. ?He understands the risks involved, especially the risk of incomplete relief of pain, and has elected to proceed. ? OPERATIVE FINDINGS: ?Subtalar fusion was performed and?stabilized with?two?Accutrak??7 .5-mm cannulated lag screws and one 7.3 lag screw.?Iliac crest?and allogenic?bone graft?and?3?cc Augment??was used to augment the ?fusion.?Equinus was noted after fusion and tendoachilles lengthening was performed.?Lateral ligaments were noted to be lax and were reconstructed with two Fibertaks in the talus for the ATFL, one Fibertak in the calcaneus for the CFL and one Internal Brace from fibula to calcaneus. The posterior tibial tendon was lengthened. ? OPERATIVE PROCEDURE: ?After obtaining written and informed consent, the patient was ?taken to the operating room and placed supine on the operating room table. ?General ?endotracheal anesthesia was obtained. ?A tourniquet was placed on the upper aspect ?of the?right?leg.??The patient's?right?leg was prepped and draped in usual sterile ?fashion. ?After exsanguination with an Esmarch, tourniquet was inflated to?250 mmHg. ?At that time, a sinus tarsi incision was?made. ?The extensor digitorum brevis was ?reflected distally. ??Next, the subtalar joint was debrided of all articular cartilage. ?The ?subchondral bone was prepared multiple times with a?prema and?2.5-mm drill bit. ?Iliac crest ?bone graft was harvested and mixed with demineralized cortical ?fibers and crushed cancellous allograft and packed into the arthrodesis site?along with?3?cc Augment. ?The ?joint was then realigned and guide pins were placed across the joint. ?These were ?then exchanged for?two?Accutrak?7.5 -mm cannulated lag screws and one 7.3 mm lag screw.??Good fixation was achieved. ?Fluoroscopic imaging demonstrated appropriate position of hardware.?At that time it was noted that the achilles was tight. Therefore a Rene achilles tendon lengthening was performed.?Additiona lly the lateral ligaments were noted to be lax. Therefore they were reconstructed including ATFL and CFL with two Fibertaks in the talus for the ATFL, one Fibertak in the calcaneus for the CFL, and one Internal Brace from fibula to calcaneus. Once the sutures were tied and the Internal Brace was secured, the ankle was stable. Last, an incision was made over the distal posterior tibial tendon which was tight. It was Z-lengthened and secured with 0 Fiberwire suture. Tourniquet was then let down and hemostasis obtained.??The wound was lavaged. ?The extensor ?digitorum brevis was repaired with 2-0 PDS.???Skin was closed with 3-0/4-0?Monoc (more content not included)... Normal [facility] XR ANKLE 3V AP/LAT/OBL RTon 09-20-2021 XR ANKLE 3V AP/LAT/OBL RT * * *Final Report* * * DATE OF EXAM: Sep 20 2021 11:16AM ESX [id number] - XR ANKLE 3V AP/LAT/OBL RT / PROCEDURE REASON: ARTHRODESIS SUBTALAR * * * * Physician Interpretation * * * * HISTORY: ARTHRODESIS SUBTALAR. TECHNIQUE: XR ANKLE 3V AP/LAT/OBL RT Laterality: Right Number of different views (projections): 6 COMPARISON: MRI dated 09/20/2021 RESULT: Fluoroscopic Radiation Summary: Plane A, Air Kerma: 1.6 mGy Dose Area Product (DAP): Fluoro time: 2:54 min:sec Intraoperative images were obtained for surgical planning. Please refer to surgical note for further details. IMPRESSION: Intraoperative images obtained for surgical planning. Please refer to surgical note for further details. Boxing And Pressing Supervisor: PSCB Transcribe Date/Time: Sep 20 2021 11:49A Dictated by : VU GARY MD This examination was interpreted and the report reviewed and electronically signed by: VU GARY MD on Sep 20 2021 11:50AM EST [id number] CN Normal [facility] Basic metabolic 2000 panelon 09-09-2021 Anion gap [Moles/Vol] 10 mmol/L Normal 9-18 [facility] Comment on above: Order Comment: Speci men Type: BLOOD SPECIMENOrdering Facility: [facility] Address: [address] [place] [address] Performed By: #### 2 4321-2 ####[facility] [id number] [place] [address] [place] Calcium [Mass/Vol] 9.5 mg/dL Normal 8.5-10.2 [facility] Comment on above: Order Comment: Speci men Type: BLOOD SPECIMENOrdering Facility: [facility] Address: [address] [place] [address] Performed By: #### 2 4321-2 ####[facility] [id number] [place] [address] [place] Chloride [Moles/Vol] 104 mmol/L Normal 97-105 [facility] Comment on above: Order Comment: Speci men Type: BLOOD SPECIMENOrdering Facility: [facility] Address: [address] [address] Performed By: #### 2 4321-2 ####[facility] [id number] [place] [address] [place] CO2 [Moles/Vol] 23 mmol/L Normal 22-30 [facility] Comment on above: Order Comment: Speci men Type: BLOOD SPECIMENOrdering Facility: [facility] Address: [address] [place] [address] Performed By: #### 2 4321-2 ####[facility] [id number] [place] [address] [place] Creatinine [Mass/Vol] 0.88 mg/dL Normal 0.73-1.22 [facility] Comment on above: Order Comment: Speci men Type: BLOOD SPECIMENOrdering Facility: [facility] Address: [address] [place] [address] Performed By: #### 2 4321-2 ####[facility] [id number] [place] [address] [place] ESTIMATED GLOMERULAR FILTRATION RATE 103 mL/min/1.73m??? Normal >=60 [facility] Comment on above: Order Comment: Speci men Type: BLOOD SPECIMENOrdering Facility: [facility] Address: [address] [place] [address] Result Comment: Nell mated Glomerular Filtration Rate (eGFR) is calculated using the 2020 CKD-EPI creatinine equation. This equation utilizes serum creatinine, sex, and age as parameters. The creatinine assay has traceable calibration to isotope dilution-mass spectrometry. Refer to KDIGO guidelines for clinical interpretation. In patients with unstable renal function, e.g. those with acute kidney injury, the eGFR may not accurately reflect actual GFR. Performed By: #### 2 4321-2 ####[facility] [id number] [place] [address] [place] Glucose [Mass/Vol] 104 mg/dL High 74-99 [facility] Comment on above: Order Comment: Gopal chung Type: BLOOD SPECIMENOrdering Facility: [facility] Address: [address] [place] [address] Result Comment: The [place] Diabetes Association (ADA) provides guidance for cutoff values for fasting glucose and random glucose. The ADA defines fasting as no caloric intake for at least 8 hours. Fasting plasma glucose results between 100 to 125 mg/dL indicate increased risk for diabetes (prediabetes). Fasting plasma glucose results greater than or equal to 126 mg/dL meet the criteria for diagnosis of diabetes. In the absence of unequivocal hyperglycemia, results should be confirmed by repeat testing. In a patient with classic symptoms of hyperglycemia or hyperglycemic crisis, random plasma glucose results greater than or equal to 200 mg/dL meet the criteria for diagnosis of diabetes. Reference: Standards of Medical Care in Diabetes 2016, [place] [employer] Association. Diabetes Care. 2016.39(Suppl 1). Performed By: #### 2 4321-2 ####[facility] MILLWDIANELIA [id number] [place] [address] [place] Potassium [Moles/Vol] 3.8 mmol/L Normal 3.7-5.1 [facility] Comment on above: Order Comment: Gopal chung Type: BLOOD SPECIMENOrdering Facility: [facility] Address: [address] [place] [address] Performed By: #### 2 4321-2 ####[facility]WNCL[facility] [id number] [place] [address] [place] Sodium [Moles/Vol] 137 mmol/L Normal 136-144 [facility] Comment on above: Order Comment: Gopal chung Type: BLOOD SPECIMENOrdering Facility: [facility] Address: [address] [place], [place] [address] Performed By: #### 2 4321-2 ####[facility] MILLTOWNCLIA [id number] [place] [address] [place] Urea nitrogen [Mass/Vol] 16 mg/dL Normal 9-24 [facility] Comment on above: Order Comment: Speci men Type: BLOOD SPECIMENOrdering Facility: [facility] Address: [address] [place] [address] Performed By: #### 2 4321-2 ####[facility] [id number] [place] [address] [place] CBC W Auto Differential pane l (Bld)on 09-09-2021 Basophils (Bld) [#/Vol] 0.06 10*3/uL Normal <0.11 [facility] Comment on above: Order Comment: Speci men Type: BLOOD SPECIMENOrdering Facility: [facility] Address: [address] [place] [address] Performed By: #### 5 7021-8 ####[facility] [id number] [place] [address] [place] Basophils/100 WBC (Bld) 0.9 % Normal [facility] Comment on above: Order Comment: Speci men Type: BLOOD SPECIMENOrdering Facility: [facility] Address: [address] [place] [address] Performed By: #### 5 7021-8 ####[facility] [id number] [place] [address] [place] Differential cell count method Nom (Bld) Auto Normal [facility] Comment on above: Order Comment: Speci men Type: BLOOD SPECIMENOrdering Facility: [facility] Address: [address] [place] [address] Performed By: #### 5 7021-8 ####[facility] [id number] [place] [address] [place] Eosinophils (Bld) [#/Vol] 0.20 10*3/uL Normal <0.46 [facility] Comment on above: Order Comment: Speci men Type: BLOOD SPECIMENOrdering Facility: [facility] Address: [address] [place] [address] Performed By: #### 5 7021-8 ####[facility] HOSPITALLIA [id number] [place] [address] [place] Eosinophils/100 WBC (Bld) 3.0 % Normal [facility] Comment on above: Order Comment: Speci men Type: BLOOD SPECIMENOrdering Facility: [facility] Address: [address] [place] [address] Performed By: #### 5 7021-8 ####[facility] [id number] [place] [address] [place] Erythrocyte distribution width (RBC) [Ratio] 13.2 % Normal 11.5-15.0 [facility] Comment on above: Order Comment: Speci men Type: BLOOD SPECIMENOrdering Facility: [facility] Address: [address] [place] [address] Performed By: #### 5 7021-8 ####[facility] [id number] [place] [address] [place] Hematocrit (Bld) [Volume fraction] 45.3 % Normal 39.0-51.0 [facility] Comment on above: Order Comment: Speci men Type: BLOOD SPECIMENOrdering Facility: [facility] Address: [address] [place], [place] [address] Performed By: #### 5 7021-8 ####[facility] HOSPITALLIA [id number] [place] [address] [place] Hemoglobin (Bld) [Mass/Vol] 15.6 g/dL Normal 13.0-17.0 [facility] Comment on above: Order Comment: Speci men Type: BLOOD SPECIMENOrdering Facility: [facility] Address: [address] [place] [address] Performed By: #### 5 7021-8 ####[facility] HOS[facility]ITALWILLOWA [id number] [place] [address] [place] IMMATURE GRAN % 0.4 % Normal [facility] Comment on above: Order Comment: Speci men Type: BLOOD SPECIMENOrdering Facility: [facility] Address: [address] [place] [address] Performed By: #### 5 7021-8 ####[facility] [id number] [place] [address] [place] IMMATURE GRAN ABS 0.03 k/uL Normal <0.10 [facility] Comment on above: Order Comment: Speci men Type: BLOOD SPECIMENOrdering Facility: [facility] Address: [address] [place] [address] Performed By: #### 5 7021-8 ####[facility]ANEERVINJazzy [id number] [place] [address] [place] Lymphocytes (Bld) [#/Vol] 2.41 10*3/uL Normal 1.00-4.00 [facility] Comment on above: Order Comment: Speci men Type: BLOOD SPECIMENOrdering Facility: [facility] Address: [address] [place] [address] Performed By: #### 5 7021-8 ####[facility] [id number] [place] [address] [place] Lymphocytes/100 WBC (Bld) 35.9 % Normal [facility] Comment on above: Order Comment: Speci men Type: BLOOD SPECIMENOrdering Facility: [facility] Address: [address] [place] [address] Performed By: #### 5 7021-8 ####[facility] [id number] [place] [address] [place] MCH (RBC) [Entitic mass] 28.9 pg Normal 26.0-34.0 [facility] Comment on above: Order Comment: Speci men Type: BLOOD SPECIMENOrdering Facility: [facility] Address: [address] [place] [address] Performed By: #### 5 7021-8 ####[facility] HOSPITALWNCJORDAN [facility] [id number] [place] [address] [place] MCHC (RBC) [Mass/Vol] 34.4 g/dL Normal 30.5-36.0 [facility] Comment on above: Order Comment: Speci men Type: BLOOD SPECIMENOrdering Facility: [facility] Address: [address] [place] [address] Performed By: #### 5 7021-8 ####[facility] [id number] [place] [address] [place] MCV (RBC) [Entitic vol] 84.0 fL Normal 80.0-100.0 [facility] Comment on above: Order Comment: Speci men Type: BLOOD SPECIMENOrdering Facility: [facility] Address: [address] [place] [address] Performed By: #### 5 7021-8 ####[facility] [id number] [place] [address] [place] Monocytes (Bld) [#/Vol] 0.66 10*3/uL Normal <0.87 [facility] Comment on above: Order Comment: Speci men Type: BLOOD SPECIMENOrdering Facility: [facility] Address: [address] [place] [address] Performed By: #### 5 7021-8 ####[facility] [id number] [place] [address] [place] Monocytes/100 WBC (Bld) 9.8 % Normal [facility] Comment on above: Order Comment: Speci men Type: BLOOD SPECIMENOrdering Facility: [facility] Address: [address] [place] [address] Performed By: #### 5 7021-8 ####[facility] FERNANDONORTH BENTONDARLEEN [id number] [place] [address] [place] Neutrophils (Bld) [#/Vol] 3.36 10*3/uL Normal 1.45-7.50 [facility] Comment on above: Order Comment: Speci men Type: BLOOD SPECIMENOrdering Facility: [facility] Address: [address] [place] [address] Performed By: #### 5 7021-8 ####[facility] [id number] [place] [address] [place] Neutrophils/100 WBC (Bld) 50.0 % Normal [facility] Comment on above: Order Comment: Speci men Type: BLOOD SPECIMENOrdering Facility: [facility] Address: [address] [place] [address] Performed By: #### 5 7021-8 ####[facility] [id number] [place] [address] [place] Nucleated RBC (Bld) [#/Vol] 10*3/uL Normal <0.01 [facility] Comment on above: Order Comment: Speci men Type: BLOOD SPECIMENOrdering Facility: [facility] Address: [address] [place], [place] [address] Performed By: #### 5 7021-8 ####[facility] HOSPITALLIA [id number] [place] [address] [place] Nucleated RBC/100 WBC (Bld) [Ratio] 0.0 /100 WBC Normal [facility] Comment on above: Order Comment: Speci men Type: BLOOD SPECIMENOrdering Facility: [facility] Address: [address] [place] [address] Performed By: #### 5 7021-8 ####[facility] FERNANDOWNCLIA [id number] [place] [address] [place] Platelet mean volume (Bld) [Entitic vol] 10.4 fL Normal 9.0-12.7 [facility] Comment on above: Order Comment: Speci men Type: BLOOD SPECIMENOrdering Facility: [facility] Address: [address] [place] [address] Performed By: #### 5 7021-8 ####[facility] [id number] [place] [address] [place] Platelets (Bld) [#/Vol] 177 10*3/uL Normal 150-400 [facility] Comment on above: Order Comment: Speci men Type: BLOOD SPECIMENOrdering Facility: [facility] Address: [address] [place] [address] Performed By: #### 5 7021-8 ####[facility] [id number] [place] [address] [place] RBC (Bld) [#/Vol] 5.39 10*6/uL Normal 4.20-6.00 [facility] Comment on above: Order Comment: Speci men Type: BLOOD SPECIMENOrdering Facility: [facility] Address: [address] [place] [address] Performed By: #### 5 7021-8 ####[facility] [id number] [place] [address] [place] WBC (Bld) [#/Vol] 6.72 10*3/uL Normal 3.70-11.00 [facility] Comment on above: Order Comment: Speci men Type: BLOOD SPECIMENOrdering Facility: [facility] Address: [address] [place] [address] Performed By: #### 5 7021-8 ####[facility] [id number] [place] [address] [facility] Elda 09-09-2021 CNPN Telephone (MNPACC) DON PADILLAMIGUELMARQUISE Arcadio ([id number]) 1970 M Date Time Provider Department 09/09/21 OFELIA COLUNGA [facility] During your visit today, we recorded the following information about you: Ofelia Colunga RN 09/09/2021 11:15 AM Signed Spoke directly with patient regarding ordered labs needed for surgery. He stated he was going today to [place] [facility] to have drawn. Allergies As of Date: 09/09/2021 (No Known Allergies) Date Reviewed: 09/02/2021 Reviewed by: Nini Borja PA-C - Fully Assessed Reason for Visit: PreOp Call [1754] Cmt: labs ordered Prescriptions as of 09/09/2021 - atorvastatin (LIPITOR) 40 mg tablet Take 40 mg by mouth once daily. Problem List As Of Date 09/09/2021 Noted Resolved Abdominal pain, epigastric [R10.13] 03/23/2009 07/29/2021 Vertigo [R42] 07/29/2021 Right ankle pain [M25.571] 07/29/2021 Cerebral aneurysm [I67.1] 07/29/2021 HLD (hyperlipidemia) [E78.5] 07/29/2021 BMI 34.0-34.9,adult [Z68.34] 07/29/2021 Acquired cavovarus deformity of foot, right [M2* Encounter Status:Closed by OFELIA COLUNGA on 09/09/21 Normal [facility] HISTORY PHYSICALon HISTORY PHYSICAL HNO ID: [id number] Author: Nini Borja PA-C Service: ? Author Type: Physician Piano Case And Bench Assembler Type: HANDP Filed: 09/02/2021 12:06 PM Note Text: PREANESTHESIA CONSULT CLINIC TELEHEALTH VISIT Patient has been identified by name and date of : Yes This is a virtual visit using TRAFFIQ video visit. It require patient-provider interaction for the medical decision making as documented below. Reason for contact: PACC visit Accompanied by: Self Scheduled Surgery: ARTHRODESIS SUBTALAR RIGHT; REPAIR ANKLE LIGAMENT SECONDARY DISRUPTED, COLLATERAL RIGHT; GRAFT BONE ILIAC CREST RIGHT; LENGTHENING TENDON EXTREMITY LOWER RIGHT 09/20/2021 Subjective CHIEF COMPLAINT: Patient presents with: Pre-Op Exam HPI: This is a 51 year old male who presents with an acquired cavovarus deformity of his right foot. He initially developed pain in this foot shortly after a meniscal repair of his right knee in 2019. He underwent peroneal tendon debridement/repair, calcaneal/1st met osteotomy 12-10-20 for peroneal tendinopathy with a tear, however, he continues to have intermittent pain in this foot that with walking, standing, weight bearing. Rest helps to alleviate the pain. He also notes occasional swelling in the foot and ankle and he tends to roll this foot when he walks. In July he underwent removal of the hardware in preparation for above noted reconstruction. He denies recent trauma or injury but noted he did fracture his right foot in 2003. MRI from 08/14/2021 revealed: ? IMPRESSION: High-grade tear of the peroneal tendons as described. ?Tenosynovitis of the posterior tibialis and flexor digitorum longus tendons. Healed calcaneal osteotomy status post hardware removal. ACTIVE PROBLEM LIST Vertigo Right Ankle Pain Cerebral Aneurysm Hld (Hyperlipidemia) Bmi 34.0-34.9,Adult PAST MEDICAL HISTORY Diagnosis Date - Abdominal pain, epigastric - Acquired cavovarus deformity of foot, right - Acute gastritis without mention of hemorrhage - Cholecystitis - History of meniscal tear - Hyperlipidemia PAST SURGICAL HISTORY Procedure Laterality Date - ARTHROSCOPIC HARDWARE REMOVAL Right 07/2021 REMOVAL HARDWARE FOOT - CHOLECYSTECTOMY W/CHOLANGIOGRAPHY 04/05/2009 - EGD TRANSORAL BIOPSY SINGLE/MULTIPLE 03/25/2009 nodular/gastritis - FOOT SURGERY HX Right 2020 - KNEE RIGHT OP SURGERY Right 2019 torn meniscus repair FAMILY HISTORY Problem Relation Age of Onset - No Known Problems Mother - Prostate Cancer Father Social History Tobacco Use - Smoking status: Former Smoker Quit date: 04/09/2003 Years since quittin.4 - Smokeless tobacco: Never Used - Tobacco comment: chew Substance Use Topics - Alcohol use: Yes Alcohol/week: 2.5 standard drinks Types: 1 Cans of Beer (12oz) per week Comment: 1-2 x per month. - Drug use: No ALLERGIES No Known Allergies MEDICATIONS: Current Outpatient Medications Medication Sig - atorvastatin (LIPITOR) 40 mg tablet Take 40 mg by mouth once daily. - ondansetron (ZOFRAN) 4 mg tablet Take 1 tablet by mouth every 8 hours as needed for nausea/vomiting. (Patient not taking: Reported on 08/11/2021 ) - docusate sodium (COLACE) 100 mg capsule Take 1 capsule by mouth twice daily. (Patient not taking: Reported on 08/11/2021 ) No current facility-administere d medications for this visit. COVID VACCINATION STATUS: Fully vaccinated REVIEW OF SYSTEMS: Pain Assessment: General: No weight loss, malaise or fevers. Neuro: No history of TIA's, stroke, LOCKSTITCH ZIPPER SETTER tumor, impaired sensorium, hemiplegia, paraplegia or quadraplegia. +h/o brain aneurysm 2019 - followed with serial MRIs, resolved on most recent imaging without intervention +h/o vertigo - resolved Respiratory: No history of current cough or dyspnea, or pneumonia in the past 6 weeks. No history of respiratory/pulmonar y symptoms or problems. Cardiovascular: No history of HTN requiring medication, no history of angina, CHF, [place], cardiac surgery or stents. Denies rest pain, gangrene or revascularization/am putation for PVD. No history of cardiovascular symptoms or problems.+hyperlipid emia GI: No history of GI symptoms or problems. No history of esophageal varices, recent ascites, or ETOH greater than 2 drinks per day. : No history of dysuria, frequency or incontinence,, stones or chronic kidney disease Endocrine: No history of diabetes. Has not taken steroids within the past 30 days. No history of endocrinological symptoms or problems. Hematology: No history of bleeding or clotting disorder. Pt is not taking anti-coagulation or platelet medications. No history of hematological symptoms or problems. Oncology: No history of CA metastasis, chemo within 30 days, or radiotherapy within 90 days. Has not lost 10% of body wt in 6 months. No history of oncological symptoms or problems. Psych: No history of psychiatric symptoms or problems. Musculoskeletal: Negative for back pain or (more content not included)... Normal [facility] CNPNon 08-26-2021 CNPN Telephone (ORTHMN) SAL PADILLA ([id number]) 1970 M Date Time Provider Department 08/26/21 MILLA SOTO [facility]TH[facility] During your visit today, we recorded the following information about you: Allergies As of Date: 08/26/2021 (No Known Allergies) Date Reviewed: 08/25/2021 Reviewed by: Shelby Covington Ma - Fully Assessed Reason for Visit: Patient Update [1234] Cmt: pt instructed MUST bring crutches day of OR Prescriptions as of 08/26/2021 - ondansetron (ZOFRAN) 4 mg tablet Take 1 tablet by mouth every 8 hours as needed for nausea/vomiting. - docusate sodium (COLACE) 100 mg capsule Take 1 capsule by mouth twice daily. - atorvastatin (LIPITOR) 40 mg tablet Take 40 mg by mouth once daily. Problem List As Of Date 08/26/2021 Noted Resolved Abdominal pain, epigastric [R10.13] 03/23/2009 07/29/2021 Vertigo [R42] 07/29/2021 Right ankle pain [M25.571] 07/29/2021 Cerebral aneurysm [I67.1] 07/29/2021 HLD (hyperlipidemia) [E78.5] 07/29/2021 BMI 34.0-34.9,adult [Z68.34] 07/29/2021 Encounter Status:Closed by QING ALVAREZ on 08/26/21 [facility] Efren 08-25-2021 CNOV Office Visit (ORMIDD) SAL PADILLA Arcadio ([id number]) 1970 M Date Time Provider Department 08/25/21 3:10 PM MILLA SOTO During your visit today, we recorded the following information about you: Milla Soto MD 08/25/2021 4:41 PM Signed Right varus foot deformity Incision CDI Sutures removed Discussed 2nd stage surgery. He would like to proceed. Will schedule for 09/20 The patient has therefore been indicated for surgical intervention consisting of Right subtalar joint fusion, possible calcaneocuboid fusion, iliac crest and allogenic bone graft, achilles lengthening, posterior tibial tendon lengthening vs transfer, lateral ankle ligament reconstruction with possible allograft tendon augmentation Will start with ST fusion, NIKOLE. May transfer PTT to peroneals vs lengthen. Will assess for CC Fusion once ST joint addressed Will assess talar tilt after Fusion. Will reef ATFL and CFL, may augment with allograft. We discussed the rationale for, risks of, and prolonged recovery associated with this surgery. The patient expressed understanding of all issues including risks of infection, nerve damage, wound dehiscence, nonunion, malunion, symptomatic hardware, overcorrection or undercorrection of deformity, incomplete relief of pain, inability to return to the patient's desired level of function, generalized dissatisfaction with the surgical procedure and outcome, deep vein thrombosis (DVT), pulmonary embolus, (PE), cardiac complications and . The patient understands that healing of bones and soft tissues will take approximately 3 months but full recovery will require 6-9 months. The patient also understands that it is critical to strictly elevate the operative leg for the first 3 weeks after surgery to control both swelling and pain. The patient was counseled that no weight will be allowed on the surgical leg for approximately 8-12 weeks or until the patient is instructed that it is safe to initiate weightbearing. The patient expressed full understanding of all these issues and would like to proceed with surgery. Milla Soto MD Referring Provider: MILLA SOTO [[id number]] Allergies As of Date: 08/25/2021 (No Known Allergies) Date Reviewed: 08/25/2021 Reviewed by: Shelby Covington Ma - Fully Assessed Reason for Visit: Follow Up [171] Primary Visit Diagnosis:Acquired cavovarus deformity of foot, 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] Order(s):SURGICAL REQUEST - ELECTIVE (11/2019) [[id number]] Order #: [id number]: 1 CBC + DIFF [SQCBCDIF] Order #: [id number] FUTURE BASIC METABOLIC PNL [SQBMP] Order #: [id number] FUTURE VIRTUAL CONSULT TO [facility] [[id number]] Order #: [id number]: 1 FUTURE Prescriptions as of 08/25/2021 - ondansetron (ZOFRAN) 4 mg tablet Take 1 tablet by mouth every 8 hours as needed for nausea/vomiting. - docusate sodium (COLACE) 100 mg capsule Take 1 capsule by mouth twice daily. - atorvastatin (LIPITOR) 40 mg tablet Take 40 mg by mouth once daily. Problem List As Of Date 08/25/2021 Noted Resolved Abdominal pain, epigastric [R10.13] 03/23/2009 07/29/2021 Vertigo [R42] 07/29/2021 Right ankle pain [M25.571] 07/29/2021 Cerebral aneurysm [I67.1] 07/29/2021 HLD (hyperlipidemia) [E78.5] 07/29/2021 BMI 34.0-34.9,adult [Z68.34] 07/29/2021 Encounter Status:Closed by MILLA SOTO on 08/25/21 Normal [facility] MRI ANKLE WO IVCON RTon 05-0 MRI ANKLE WO IVCON RT * * *Final Report* * * DATE OF EXAM: Aug 14 2021 7:15AM QBM 0164 - MRI ANKLE WO IVCON RT / PROCEDURE REASON: Peroneal tendinitis of right lower extremity * * * * Physician Interpretation * * * * EXAMINATION: MRI ANKLE WO IVCON RT HISTORY: Peroneal tendinitis of right lower TECHNIQUE: Routine MRI of the right ankle/hindfoot without contrast COMPARISON: Right ankle radiograph RESULT: TENDONS Achilles tendon: Intact with minimal tendinosis Posterior tibial tendon: Intact with small to moderate tendon sheath effusion distally Flexor digitorum longus tendon: Intact with small tendon sheath effusion distally Flexor hallucis longus tendon: Intact Peroneal tendons: Extensive fraying and high-grade tear of the peroneus brevis tendon extending from the level of the lateral malleolus to its fifth metatarsal insertion. There is also extensive fraying and high-grade tear of the peroneal longus tendon from the level of the lateral malleolus to the plantar lateral margin of the calcaneus. There is chronic bony protuberance/irregul arity in the adjacent lateral surface of the calcaneus with slight mass effect on the peroneal tendons (3:2018, 6:21). Small amount of postoperative soft tissue scarring is also noted along the peroneal tendon sheath at the level of the hindfoot. LIGAMENTS Anterior talofibular ligament: Intact Posterior talofibular ligament: Intact Anterior-inferior tibiofibular ligament: Intact Posterior tibiofibular ligament: Intact Calcaneofibular ligament: Intact Deltoid ligament: Intact Spring ligament: Intact BONES AND JOINTS Joints/cartilage: Preserved cartilage. Preserved talar dome. Bone Marrow: Postsurgical changes of healed calcaneal osteotomy status post hardware removal. Susceptibility artifact along the base of the first metatarsal from fixation plate and screws. No acute fracture. Heterotopic ossifications adjacent to the medial and lateral malleoli are better appreciated on prior radiographs. Joint fluid: No sizable joint effusion or synovitis. OTHER Plantar fascia: Within normal limits. Sinus tarsi and tarsal tunnel: Within normal limits. Localizer images: No significant additional findings. IMPRESSION: High-grade tear of the peroneal tendons as described. Tenosynovitis of the posterior tibialis and flexor digitorum longus tendons. Healed calcaneal osteotomy status post hardware removal. Boxing And Pressing Supervisor: PSCB Transcribe Date/Time: Aug 14 2021 10:17A Dictated by : RAAD DUMONT MD This examination was interpreted and the report reviewed and electronically signed by: RAAD DUMONT MD on Aug 14 2021 10:30AM EST [id number] CN Normal [facility] CNOVon 08-11-2021 CNOV Office Visit (ORMIDD) SAL PADILLA ([id number]) 1970 M Date Time Provider Department 08/11/21 9:30 AM MILLA SOTO During your visit today, we recorded the following information about you: Weight Height 109.8 kg 1.803 m Milla Soto MD 08/13/2021 2:26 PM Signed Incision CDI Dry dressing changes Partial WB Vit D Fu 2 weeks for sutures, MR review, pick surgery date Milla Soto MD Referring Provider: MILLA SOTO [[id number]] Allergies As of Date: 08/11/2021 (No Known Allergies) Date Reviewed: 08/11/2021 Reviewed by: Verónica Moreland - Fully Assessed Reason for Visit: Follow Up [171] Post Op [174] Primary Visit Diagnosis:Cavovarus deformity of foot [Q66.10] Order(s):PARKING FOR HANDICAPPED [[id number]] Order #: [id number] Prescriptions as of 08/13/2021 - acetaminophen (TYLENOL EXTRA STRENGTH) 500 mg tablet Take 2 tablets by mouth every 8 hours for 14 days. - ondansetron (ZOFRAN) 4 mg tablet Take 1 tablet by mouth every 8 hours as needed for nausea/vomiting. - docusate sodium (COLACE) 100 mg capsule Take 1 capsule by mouth twice daily. - atorvastatin (LIPITOR) 40 mg tablet Take 40 mg by mouth once daily. Medication notes this encounter ACETAMINOPHEN 500 MG TABLET >> Verónica Moreland 08/11/2021 9:32 AM >> VERÓNICA MORELAND August 11, 2021 9:32 AM PRN OXYCODONE 5 MG TABLET >> Verónica Moreland 08/11/2021 9:33 AM >> VERÓNICA MORELAND August 11, 2021 9:33 AM PRN Problem List As Of Date 08/11/2021 Noted Resolved Abdominal pain, epigastric [R10.13] 03/23/2009 07/29/2021 Vertigo [R42] 07/29/2021 Right ankle pain [M25.571] 07/29/2021 Cerebral aneurysm [I67.1] 07/29/2021 HLD (hyperlipidemia) [E78.5] 07/29/2021 BMI 34.0-34.9,adult [Z68.34] 07/29/2021 Encounter Status:Closed by MILLA SOTO on 08/13/21 [facility] ANES POSTPROC EVALon 022 ANES POSTPROC EVAL HNO ID: [id number] Author: Matthew Rodriguez MD Service: Anesthesiology Author Type: Anesthesiologist Type: Anesthesia Postprocedure Evaluation Filed: 08/04/2021 1:03 PM Note Text: POST ANESTHESIA EVALUATION NOTE : 1970 Procedure Summary Date: 08/04/21 Room / Location: [address] Anesthesia Start: 739 Anesthesia Stop: 852 Procedure: REMOVAL HARDWARE FOOT (Right Ankle) Diagnosis: Pain in joint involving right ankle and foot Peroneal tendinitis of right lower extremity Surgeons: Milla Soto MD Responsible Provider: Matthew Rodriguez MD Anesthesia Type: general ASA Status: 2 Anesthesia Type: general Airway Type: LMA Last Vitals Vitals Value Taken Time BP 110/65 08/04/21 1035 Temp 36 ?C (96.8 ?F) 08/04/21 1035 HR SpO2 61 08/04/21 1041 Resp 18 08/04/21 1035 SpO2 96 % 08/04/21 1041 Vitals shown include unvalidated device data. Post Anesthesia Patient Status Patient Evaluation: PACU. PACU/ICU Patient Condition: stable. Anticipated Disposition: phase 2 then home. Neurological Status: aware and responsive. Pulmonary Status: breathing comfortably on room air Airway Control: returned to baseline unsupported. Cardiovascular Status: stable. Pain Management: clinically adequate - multimodal analgesia pain management approach Postoperative Hydration: acceptable. Intraoperative Events: no significant anesthesia events Post Operative Nausea/Vomiting Status: no significant post operative nausea or vomiting Anesthetic Observations: Recommendation: continue current plan of care. Anesthesia Observations No Documentation SIGNATURE: Matthew Rodriguez MD PATIENT NAME: Sal Padilla DATE: August 04, 2021 TIME: 1:03 PM CSN: [id number] Normal [facility] ANES PRE-OPon 08-04-2021 ANES PRE-OP HNO ID: [id number] Author: Matthew Rodriguez MD Service: Anesthesiology Author Type: Anesthesiologist Type: Anesthesia Preprocedure Evaluation Filed: 08/04/2021 7:02 AM Note Text: ANESTHESIOLOGY DAY OF SURGERY NOTE : 1970 Procedure Information Date/Time: 08/04/21729 Procedure: REMOVAL HARDWARE FOOT (Right Ankle) Location: [place] [address] / [facility] Surgeons: Milla Soto MD Estimated body mass index is 34.03 kg/m? as calculated from the following: Height as of 07/29/21: 180.3 cm (5' 11). Weight as of 07/29/21: 110.7 kg (244 lb). Most recent hematocrit and potassium results: No results found for this basename: HCT,HEMATOCRIT,K,POT ASSIUM Relevant Problems CARDIO (+) Cerebral aneurysm I - PHYSICAL EVALUATION AIRWAY Patient intubated: No. Tracheostomy tube not present Mallampati: II. TM distance: >3 FB. Neck ROM: full ROM without neurological symptoms. Mouth opening: adequate. Short neck: no. Thick neck: no DENTAL Dental findings: teeth intact. Additional exam findings: yes. CARDIOVASCULAR Normal cardiovascular observations. Rhythm: regular Rate: normal PULMONARY Normal pulmonary observations. Breath sounds clear to auscultation. II - ANESTHESIA PLAN ASA Score: 2 Anesthetic Plan: general Airway type: LMA The patient is not a current smoker. NPO Status: adequate Monitoring plan: Standard ASA. Postoperative analgesic plan: parenteral or oral opioids and multimodal analgesia. Informed Consent Anesthetic risks, benefits, alternatives, personnel and consent discussed: yes. Patient / Responsible Democrat agrees to proceed: yes Patient / Surrogate agrees to blood products: blood products not planned DNR status not reviewed with patient and/or family prior to surgery. Significant changes in the patient condition since the History and Physical, not otherwise documented in primary service progress note: no. Potential Anesthesia issues that may suggest increased risk of complications or contraindication to planned procedure: none. No vitals data found for the desired time range. Facility-Administere d Medications as of 08/04/2021 Medication Dose Route Frequency - acetaminophen 1,000 mg tab(s) (TYLENOL) 1,000 mg ORAL ONCE - promethazine 12.5 mg tab(s) (PHENERGAN) 12.5 mg ORAL NOW No current outpatient medications on file as of 08/04/2021. I have interviewed and examined the patient. I have reviewed the medical record and/or the pre-anesthesia evaluation, pertinent labs, and test results. This contains updated information obtained within 48 hours of Surgery/Procedure. SIGNATURE: Matthew Rodriguez MD PATIENT NAME: Sal aPdilla DATE: August 04, 2021 TIME: 7:01 AM CSN: [id number] Normal [facility] BRIEF OP NOTon 08-04-2021 BRIEF OP NOT HNO ID: [id number] Author: Ck Bledsoe MD Service: Orthopaedic Surgery Author Type: Resident Type: Brief Op Note Filed: 08/04/2021 9:00 AM Note Text: BRIEF OP NOTE LOG ID: [id number] Surgery/Procedure Date: 08/04/2021 Incision/Procedure Start Time: 8:22 AM Incision Close/Procedure End Time: 8:41 AM Surgeon(s)/Procedura list(s) and Piano Case And Bench Assembler(s): Surgeon(s) and Role: * Milla Soto MD - Primary * Ck Bledsoe MD - Fellow Procedure(s): Hardware removal from right calcaneus Anesthesia: General Findings: Healed calcaneal osteotomy Estimated Blood Loss: 10 mls Specimens: * No specimens in log * Implants: * No implants in log * Complications: None Pre-Op/Pre-Procedure Diagnosis: Failed cavovarus foot reconstruction Post-Op/Post-Procedu re Diagnosis: Same SIGNATURE: Ck Bledsoe MD PATIENT NAME: Sal Padilla DATE: August 04, 2021 TIME: 8:59 AM PAGER/CONTACT #: [phone] [facility] HISTORY PHYSICALon HISTORY PHYSICAL HNO ID: [id number] Author: Milla Soto MD Service: Orthopaedic Surgery Author Type: Physician Type: HANDP Filed: 08/04/2021 7:45 AM Note Text: UPDATED HISTORY AND PHYSICAL EXAMINATION SERVICE DATE: 08/04/2021 SERVICE TIME: 7:45 AM PHYSICAL EXAM MUST BE COMPLETED ON ADMISSION The History and Physical (completed in the past 30 days) has been reviewed and the patient has been examined. The contents accurately reflect the patient's condition with the following additions or revisions since the HANDP was completed. Examination indicates no changes. This HANDP can be found in the Electronic Medical Record. SIGNATURE: Milla Soto MD PATIENT NAME: Sal Padilla DATE: August 04, 2021 TIME: 7:45 AM Normal [facility] OPERATIVE NOon 08-04-2021 OPERATIVE NO HNO ID: [id number] Author: Milla Soto MD Service: Orthopaedic Surgery Author Type: Physician Type: Operative Report Filed: 08/04/2021 9:08 AM Note Text: [place] [address] [place] ?? OPERATIVE REPORT ?? NAME:SAL WILSON ?? CLINIC#:?[id number] ?? AGE:?40 DATE OF PROCEDURE:?08/04/2021 ? ? SURGEON 1: ??Milla Soto M.D. SURGEON 2: ? ORAL SURGEON 1: ?Ck Bledsoe MD ORAL SURGEON 2: ? OPERATION: 1. ?Right foot hardware removal. ?? I was present for and participated in 100% of this procedure.? ? Incision/Procedure Start Time: 8:22 AM Incision Close/Procedure End Time: 8:41 AM ? ANESTHESIA: GETA,?single shot peripheral nerve block ? PREOPERATIVE DIAGNOSIS: ? 1. ?Right foot retained hardware. ? POSTOPERATIVE DIAGNOSIS: 1. ?Right foot retained hardware. ? ? OPERATIVE INDICATIONS: The patient is a 51?yo male with?symptomatic right foot hardware?who is indicated for removal of hardware as stage one of planned two stage reconstruction procedure. ? The patient was extensively regarding the options for treatment, including the nature of hardware related pain. ?Counseling also entailed discussion of operative and nonoperative forms of treatment and after thorough counseling, he?has elected to proceed with surgical treatment. ?? Specific surgical risks discussed include bleeding, infection, damage to nerves and blood vessels, wound dehiscence and wound healing problems, symptomatic hardware particularly with the use of plate and screws, hardware breakage, the possible need for hardware removal, incomplete relief of pain, arthritis, stiffness, the possible need for physical therapy, ?inability to return to desired level of function, generalized dissatisfaction with the surgical procedure, complex regional pain syndrome, nonunion, malunion, as well as rare complications such as DVT, PE, anesthetic complications, cardiopulmonary complications as well as amputation and . ? The patient expressed understanding of all the issues described above and has elected to proceed. He understands this is first stage of two stage reconstruction. ? OPERATIVE FINDINGS: Two heel screws were removed. ? OPERATIVE PROCEDURE: ?After obtaining written and informed consent, the patient was ?taken to the operating room and placed lateral on the operating room table. ?General ?endotracheal anesthesia was obtained.?The patient's right leg was prepped and draped in usual sterile ?fashion.?A?sterile calf?tourniquet was placed under sterile conditions.??After exsanguination with an Esmarch, tourniquet was inflated.???An incision was made on the back of the heel. Two screws were removed and confirmed fluoroscopically.?Th e tourniquet was then let down and?the wounds copiously irrigated. ?The incisions were?then closed?with?3-0 Monocryl and 3-0 nylon. ?A bulky dressing?was?then ?applied. ?The patient was then awakened from anesthesia and taken to the recovery ?room. ?? POSTOPERATIVE PLAN: ?He?will be strict ?elevation and strict?partial weight bearing in a post op shoe?with crutches.??He will follow up in one week for a wound check.?He will then start daily dressing changes and will then?be partial WB with two crutches and sandal with dressings and?Igor Wrap to keep friction off the incisions. ?He can also use a heel sleeve. He will fu two?weeks later for suture removal. He will then progress to full WB in the boot.???He will continue to cover the area with dressing and heel sleeve.??He will then fu for 2nd stage surgery. ?? ESTIMATED BLOOD LOSS: ?5?mL. ?? PACKING: ?None. ?? DRAINS: ?None. ?? CATHETERS: ?None. ?? REPLACEMENTS: ?None. ?? SPECIMENS: ?None. ?? COUNTS: ?Sponge and instrument count was correct x2. ?? CONDITION: ?Stable. ?Milla Soto MD [facility] Basophil percentageon 2021 Bilirubin [Mass/Vol] 0.70 mg/dL 0.20-1.00 [facility] Work Phone: Comment on above: For patients on eltr ombopag therapy, use of Dimension [place] TBIL is not recommended. Chloride [Moles/Vol] 105 mmol/L 98-107 [facility] Work Phone: Cholesterol [Mass/Vol] 169 mg/dL <200 [facility] Work Phone: Comment on above: <200 mg/dL Desirable 200-240 mg/dL Borderline >240 mg/dL High Risk Glucose [Mass/Vol] 100 mg/dL 74-106 [facility] Work Phone: Comment on above: Fasting Glucose resu lt from 100 to 125 mg/dL suggests IMPAIRED HOMEOSTASIS per A.D.A. criteria. Potassium [Moles/Vol] 4.0 mmol/L 3.5-5.1 [facility] Work Phone: Protein [Mass/Vol] 7.3 g/dL 6.4-8.2 [facility] Work Phone: Sodium [Moles/Vol] 138 mmol/L 136-145 [facility] Work Phone: Triglyceride [Mass/Vol] 257 mg/dL <199 [facility] Work Phone: Comment on above: The drugs N-Acetylcy steine and Metamizole may falsely depress this assay.Serum Triglycerides Reference Interval Normal <150 mg/dL Borderline high 150 - 199 mg/dL High 200 - 499 mg/dL Very High > or = 500 mg/dL Laboratory - Chemistry and C hemistry - challengeon 08-02-2021 ALP [Catalytic activity/Vol] 94 U/L 45-117 [facility] Work Phone: ALT [Catalytic activity/Vol] 55 U/L 16-61 [facility] Work Phone: CO2 [Moles/Vol] 30.0 mmol/L 21.0-32.0 [facility] Work Phone: Globulin (S) [Mass/Vol] 3.5 g/dL 2.2-4.2 [facility] Work Phone: Urea nitrogen/Creatinine [Mass ratio] 13.9 mg/mg 10-20 [facility] Work Phone: No Panel Informationon 08-02 Estimated GFR (MDRD) Amer 109 mL/min >60 [facility] Work Phone: Comment on above: GFR Calc Estimated GFR (MDRD) Non-Af Amer 90 mL/min >60 [facility] Work Phone: Comment on above: Non- GFR Calc Prostate Specific Antigen Screen 0.81 ng/mL 0.00-4.00 [facility] Work Phone: Comment on above: This test was perfor med using the TPSA assay method for [employer] chemistry system. Values obtained with differentassay methods cannot be used interchangably.When changing PSA assays in the course of monitoring apatient, additional sequential testing should be carriedout to confirm baseline values. Serum or plasma albumin adán urement (mass/volume)on 08-02-2021 Albumin [Mass/Vol] 3.8 g/dL 3.2-5.0 [facility] Work Phone: Serum or plasma albumin/glob ulin mass ratioon 08-02-2021 Albumin/Globulin [Mass ratio] 1.1 {ratio} 0.9-2.4 [facility] Work Phone: Serum or plasma calcium adán urement (mass/volume)on 08-02-2021 Calcium [Mass/Vol] 9.4 mg/dL 8.5-10.1 [facility] Work Phone: Serum or plasma cholesterol in HDL measurement (mass/volume)on 08-02-2021 Cholesterol in HDL [Mass/Vol] 36 mg/dL >40 [facility] Work Phone: Comment on above: The drugs N-Acetylcy steine and Metamizole may falsely depress this assay. Reference Range HDL <40 mg/dL Low HDL Cholesterol HDL >or= 60 mg/dL High HDL Cholesterol Serum or plasma cholesterol in VLDL measurement (mass/volume)on 08-02-2021 Cholesterol in VLDL [Mass/Vol] 51 mg/dL 5-40 [facility] Work Phone: Serum or plasma creatinine m easurement (mass/volume)on 08-02-2021 Creatinine [Mass/Vol] 0.94 mg/dL 0.70-1.30 [facility] Work Phone: Comment on above: The validity of the calculated GFR & GFRAA in patients over 70 years has not been determined. Clinical correlation is essential. Serum or plasma low density lipoprotein (LDL) cholesterol measurement (mass/volume)on 08-02-2021 Cholesterol in LDL [Mass/Vol] 82 mg/dL 0-130 [facility] Work Phone: Serum or plasma urea nitroge n measurement (mass/volume)on 08-02-2021 Urea nitrogen [Mass/Vol] 13 mg/dL 7-18 [facility] Work Phone: Thin prep Papanicolaou smear with manual screeningon 08-02-2021 Thin prep Papanicolaou smear with manual screening 20 U/L 15-37 [facility] Work Phone: Thin prep Papanicolaou smear with manual screening 3 5-15 [facility] Work Phone: HISTORY PHYSICALon 2 HISTORY PHYSICAL HNO ID: [id number] Author: Ana Guillermo PA-C Service: ? Author Type: Physician Piano Case And Bench Assembler Type: HANDP Filed: 07/29/2021 2:42 PM Note Text: PREANESTHESIA CONSULT CLINIC TELEHEALTH VISIT Patient has been identified by name and date of : Yes This is a virtual visit using Alternative video platform. It require patient-provider interaction for the medical decision making as documented below. Reason for contact: PACC visit Accompanied by: Self Scheduled Surgery: RIGHT REMOVAL HARDWARE FOOT Subjective CHIEF COMPLAINT: Patient presents with: Pre-Op Exam HPI: This is a 51 year old male who presents with right foot pain. He had foot surgery last December in [place]. He was still having pain in June. He was then referred to [facility]. The pain is only with walking. He uses a brace which helps. It is numb at times ACTIVE PROBLEM LIST Vertigo Right Ankle Pain Cerebral Aneurysm Hld (Hyperlipidemia) Bmi 34.0-34.9,Adult PAST MEDICAL HISTORY Diagnosis Date - Abdominal pain, epigastric - Acute gastritis without mention of hemorrhage - Hyperlipidemia PAST SURGICAL HISTORY Procedure Laterality Date - CHOLECYSTECTOMY W/CHOLANGIOGRAPHY 04/05/2009 - EGD TRANSORAL BIOPSY SINGLE/MULTIPLE 03/25/2009 nodular/gastritis - FOOT SURGERY HX Right 2020 - KNEE RIGHT OP SURGERY Right 2019 torn meniscus repair FAMILY HISTORY Problem Relation Age of Onset - Prostate Cancer Father Social History Tobacco Use - Smoking status: Former Smoker Quit date: 04/09/2003 Years since quittin.3 - Smokeless tobacco: Never Used - Tobacco comment: chew Substance Use Topics - Alcohol use: Yes Alcohol/week: 2.5 standard drinks Types: 1 Cans of Beer (12oz) per week Comment: 1-2 x per month. - Drug use: No ALLERGIES No Known Allergies MEDICATIONS: Current Outpatient Medications Medication Sig - atorvastatin (LIPITOR) 40 mg tablet Take 40 mg by mouth once daily. No current facility-administere d medications for this visit. COVID VACCINATION STATUS: Fully vaccinated REVIEW OF SYSTEMS: Pain Assessment: General: No weight loss, malaise or fevers. + Obesity Neuro: No history of TIA's, stroke, LOCKSTITCH ZIPPER SETTER tumor, impaired sensorium, hemiplegia, paraplegia or quadraplegia. + Hx brain aneurysm 2019 - followed with serial MRIs, resolved on most recent imaging without intervention , +Hx vertigo - resolved Respiratory: No history of current cough or dyspnea, or pneumonia in the past 6 weeks. No history of respiratory/pulmonar y symptoms or problems. Cardiovascular: No history of HTN requiring medication, no history of angina, CHF, OH, cardiac surgery or stents. Denies rest pain, gangrene or revascularization/am putation for PVD. + HLD. GI: No history of GI symptoms or problems. No history of esophageal varices, recent ascites, or ETOH greater than 2 drinks per day. : No history of dysuria, frequency or incontinence,, stones or chronic kidney disease Endocrine: No history of diabetes. Has not taken steroids within the past 30 days. No history of endocrinological symptoms or problems. Hematology: No history of bleeding or clotting disorder. Pt is not taking anti-coagulation or platelet medications. No history of hematological symptoms or problems. Oncology: No history of CA metastasis, chemo within 30 days, or radiotherapy within 90 days. Has not lost 10% of body wt in 6 months. No history of oncological symptoms or problems. Psych: No history of psychiatric symptoms or problems. Musculoskeletal: SEE HPI Skin: Negative for lesions, rash and itching. Objective PHYSICAL EXAM: Pulse 68[per pt counting method[ Ht 5' 11 (1.80m) Wt 244 lb (110.7kg) BMI 34.05 kg/(m2). VIDEO EXAM: (if completed, performed via video enabled technology) GENERAL: alert and appropriate, in no distress, well-hydrated, well nourished and smiling, interactive SKIN: no rash noted HEAD: normocephalic, no abnormality or lesion noted EYES: no injection and visual acuity is grossly normal NOSE: external nose normal without rhinorrhea OROPHARYNX: moist mucus membranes, adequate mouth opening NECK: full ROM, thick neck RESPIRATORY: breathing non-labored, no notable retractions CHEST: equal chest rise with normal respiratory effort HEART: RRR per pt counting method NEUROLOGIC: no obvious deficit, speech clear Diagnostic tests reviewed for today's visit: Lab Value Units Date High Low HB No results within date range. HCT No results within date range. WBC No results within date range. PLT No results within date range. NA No results within date range. K No results within date range. GLUC No results within date range. BUN No results within date range. CREAT No results within date range. PTSEC No results within date range. INR No results within date range. APTT No results within date range. ALT No results within date range. AST No results within date range. TBILI No results wi (more content not included)... Normal [facility] CNOVon 07-28-2021 CNOV Office Visit (ORMIDD) SAL PADILLA ([id number]) 1970 M Date Time Provider Department 07/28/21 11:30 AM MILLA SOTO During your visit today, we recorded the following information about you: Weight Height 108.9 kg 1.803 m Milla Soto MD 07/28/2021 2:37 PM Addendum July 28, 2021 HPI: Sal Padilla is a 51 yo male who had foot surgery on right in [place] in December 2020. Reports a broken ankle in 2003. Sounds like he had a cavovarus foot recon. Op report describes complete PB tear with tenodesis to PL. Now with residual pain and swelling and instability. Feels he walks on side of foot. Pain Descriptors: Duration: chronic Severity: moderate Quality: ache Location: foot, ankle Context: worse with activity and dependent position Modifying Factors: improved with rest and elevation Supporting Subjective Information Below: Estimated body mass index is 33.47 kg/m? as calculated from the following: Height as of this encounter: 180.3 cm (5' 11). Weight as of this encounter: 108.9 kg (240 lb). Past Medical History PAST MEDICAL HISTORY Diagnosis Date - Abdominal pain, epigastric - Acute gastritis without mention of hemorrhage - Hyperlipidemia Surgical History: PAST SURGICAL HISTORY Procedure Laterality Date - CHOLECYSTECTOMY W/CHOLANGIOGRAPHY 04/05/09 - EGD TRANSORAL BIOPSY SINGLE/MULTIPLE nodular/gastritis - NONE Family History: FAMILY HISTORY Problem Relation Age of Onset - Prostate Cancer Father Medications: Current Outpatient Medications Medication Sig - atorvastatin (LIPITOR) 40 mg tablet Take 40 mg by mouth once daily. - esomeprazole mag trihydrate(NEXIUM 40 MG CAP) take one capsule twice daily No current facility-administere d medications for this visit. Allergies: Patient has no known allergies. Review Of Systems GENERAL:Negative for malaise, significant weight loss and fever HEENT:Negative for frequent or significant headaches, significant changes in vision or vision problems, significant ear problems or hearing loss, nasal discharge or nose bleeds and sore throat, difficulty swallowing, mouth lesions NECK:Negative for lumps, goiter, pain and significant neck swelling RESPIRATORY: Negative for cough, wheezing and shortness of breath CARDIOVASCULAR: Negative for chest pain, leg swelling and palpitations GASTROINTESTINAL: Negative for abdominal discomfort, blood in stools or black stools and change in bowel habits GENITOURINARY: Negative for dysuria, frequency and incontinence MUSCULOSKELETAL: Negative for joint pain or swelling, back pain, and muscle pain. NEUROLOGIC:Negative for focal numbness or weakness, headaches and dizziness. SKIN:Negative for lesions, rash, and itching. PSYCHIATRIC: Negative for sleep disturbance, mood disorder and recent psychosocial stressors. HEMATOLOGIC/LYMPHATI C/IMMUNOLOGIC:Negati ve for prolonged bleeding, bruising easily, and swollen nodes. ENDOCRINE: Negative for cold or heat intolerance, polyuria, polydipsia and goiter. Physical Exam: Basic physical examination reveals the patient to be in no acute distress. The patient is alert and oriented x 3 Mood and affect are appropriate. Head is atraumatic, normocephalic. Neck ROM grossly intact. Mucous membranes are moist. Eyes, ears, and nose are normal in appearance. Hearing is grossly intact. Breathing is unlabored with grossly normal chest motion. Limited Upper Extremity Exam: Shoulders with grossly intact ROM and strength, no obvious deformity. Elbows with grossly intact ROM and strength, no obvious deformity. Hand and wrist with grossly intact ROM and strength, no obvious deformity. Focused orthopaedic examination reveals the following: Skin intact without lesions. Healed lateral incision Laxity of AD and TT Marked weakness of active eversion Seated alignment relatively plantigrade Will stance heel varus is significant Imaging: XR with retained headless Arthrex 7 mm screws, 1st MT plate Ankle mortise intact Subluxated ST joint and over-adducted TN joint Assessment and Plan: Right cavovarus foot, failed cavovarus foot reconstruction, ankle instability, peroneal tendon insufficiency We discussed the complexity of his problem To better assess what surgical tx will entail, I have ordered MR to assess for degen changes He will likely need ST fusion, PTT transfer to peroneals, ankle ligament reconstruction. He understands he will likely need an [place] type brace with or without surgery. He will also need staged surgical tx with initial removal of heel screws followed by the more comprehensive surgery. He expressed a desire to move forward Therefore we agreed to start with removal of the heel screws He understands the bigger reconstructive surgery will be 4-6 weeks later. He will also start VIT D. Return to c (more content not included)... Normal [facility] No Panel Informationon 07-28 IMPRESSION: POSTSURGICAL AND MILD DEGENERATIVE CHANGES Boxing And Pressing Supervisor: JACQUIE Transcribe Date/Time: Jul 28 2021 4:57P Dictated by : CHARLENE SHEFFIELD MD This examination was interpreted and the report reviewed and electronically signed by: CHARLENE SHEFFIELD MD on Jul 28 2021 5:03PM EST ZZZ_DO_NOT_USE_ DIVISION OF RADIOLOGY Radiology Study observation (narrative) [facility] No Panel InformationOrdered By: [facility] Provider on 07-28-2021 [facility] XR ANKLE 3V AP/LAT/OBL RTon 07-28-2021 XR ANKLE 3V AP/LAT/OBL RT * * *Final Report* * * DATE OF EXAM: Jul 28 2021 11:58AM MOX [id number] - XR ANKLE 3V AP/LAT/OBL RT / PROCEDURE REASON: Pain in joint involving right ankle and foot * * * * Physician Interpretation * * * * HISTORY: Pain in joint involving right ankle and foot TECHNIQUE: 3 views right foot. 3 views right ankle. COMPARISON: None. RESULT: Right foot: Plate and screw fixation of first metatarsal with what is presumably a healed first metatarsal osteotomy. Hardware is intact. Minimal first MTP joint degenerative change with tiny osteophytes. Healed appearing posterior calcaneal osteotomy transfixed by 2 headless intact screws. Pes cavus. No acute fracture. Right ankle: Amount of chronic bony productive change at the tip of medial and lateral malleolus felt to be from remote injury. There is no acute fracture. The ankle mortise is preserved. Normal-appearing talar dome. Tiny spur anterior lip of the tibia. Small adjacent corticated ossicle. Mild soft tissue swelling about the ankle laterally. IMPRESSION: POSTSURGICAL AND MILD DEGENERATIVE CHANGES Boxing And Pressing Supervisor: PSCB Transcribe Date/Time: Jul 28 2021 4:57P Dictated by : CHARLENE SHEFFIELD MD This examination was interpreted and the report reviewed and electronically signed by: CHARLENE SHEFFIELD MD on Jul 28 2021 5:03PM EST [id number] CN Normal [facility] XR Ankle - right AP and Late ral and obliqueon 07-28-2021 * * *Final Report* * * DATE OF EXAM: Jul 28 2021 11:58AM MOX [id number] - XR ANKLE 3V AP/LAT/OBL RT / PROCEDURE REASON: Pain in joint involving right ankle and foot * * * * Physician Interpretation * * * * HISTORY: Pain in joint involving right ankle and foot TECHNIQUE: 3 views right foot. 3 views right ankle. COMPARISON: None. RESULT: Right foot: Plate and screw fixation of first metatarsal with what is presumably a healed first metatarsal osteotomy. Hardware is intact. Minimal first MTP joint degenerative change with tiny osteophytes. Healed appearing posterior calcaneal osteotomy transfixed by 2 headless intact screws. Pes cavus. No acute fracture. Right ankle: Amount of chronic bony productive change at the tip of medial and lateral malleolus felt to be from remote injury. There is no acute fracture. The ankle mortise is preserved. Normal-appearing talar dome. Tiny spur anterior lip of the tibia. Small adjacent corticated ossicle. Mild soft tissue swelling about the ankle laterally. DALJIT_DO_NOT_USE_ DIVISION OF RADIOLOGY Provider, [facility] [place] - 07/28/2021 * * *Final Report* * * DATE OF EXAM: Jul 28 2021 11:58AM MOX 5297 - XR ANKLE 3V AP/LAT/OBL RT / PROCEDURE REASON: Pain in joint involving right ankle and foot * * * * Physician Interpretation * * * * HISTORY: Pain in joint involving right ankle and foot TECHNIQUE: 3 views right foot. 3 views right ankle. COMPARISON: None. RESULT: Right foot: Plate and screw fixation of first metatarsal with what is presumably a healed first metatarsal osteotomy. Hardware is intact. Minimal first MTP joint degenerative change with tiny osteophytes. Healed appearing posterior calcaneal osteotomy transfixed by 2 headless intact screws. Pes cavus. No acute fracture. Right ankle: Amount of chronic bony productive change at the tip of medial and lateral malleolus felt to be from remote injury. There is no acute fracture. The ankle mortise is preserved. Normal-appearing talar dome. Tiny spur anterior lip of the tibia. Small adjacent corticated ossicle. Mild soft tissue swelling about the ankle laterally. IMPRESSION IMPRESSION: POSTSURGICAL AND MILD DEGENERATIVE CHANGES Boxing And Pressing Supervisor: JACQUIE Transcribe Date/Time: Jul 28 2021 4:57P Dictated by : CHARLENE SHEFFIELD MD This examination was interpreted and the report reviewed and electronically signed by: CHARLENE SHEFFIELD MD on Jul 28 2021 5:03PM [facility] XR FOOT 3V AP/LAT/OBL RTon 0 07-28-2021 XR FOOT 3V AP/LAT/OBL RT * * *Final Report* * * DATE OF EXAM: Jul 28 2021 11:58AM MOX 5337 - XR FOOT 3V AP/LAT/OBL RT / PROCEDURE REASON: Pain in joint involving right ankle and foot * * * * Physician Interpretation * * * * HISTORY: Pain in joint involving right ankle and foot TECHNIQUE: 3 views right foot. 3 views right ankle. COMPARISON: None. RESULT: Right foot: Plate and screw fixation of first metatarsal with what is presumably a healed first metatarsal osteotomy. Hardware is intact. Minimal first MTP joint degenerative change with tiny osteophytes. Healed appearing posterior calcaneal osteotomy transfixed by 2 headless intact screws. Pes cavus. No acute fracture. Right ankle: Amount of chronic bony productive change at the tip of medial and lateral malleolus felt to be from remote injury. There is no acute fracture. The ankle mortise is preserved. Normal-appearing talar dome. Tiny spur anterior lip of the tibia. Small adjacent corticated ossicle. Mild soft tissue swelling about the ankle laterally. IMPRESSION: POSTSURGICAL AND MILD DEGENERATIVE CHANGES Boxing And Pressing Supervisor: [facility] Transcribe Date/Time: Jul 28 2021 4:57P Dictated by : CHARLENE SHEFFIELD MD This examination was interpreted and the report reviewed and electronically signed by: CHARLENE SHEFFIELD MD on Jul 28 2021 5:03PM EST [id number] CN Normal [facility] XR Foot - right AP and Later al and obliqueon 07-28-2021 * * *Final Report* * * DATE OF EXAM: Jul 28 2021 11:58AM MOX 5337 - XR FOOT 3V AP/LAT/OBL RT / PROCEDURE REASON: Pain in joint involving right ankle and foot * * * * Physician Interpretation * * * * HISTORY: Pain in joint involving right ankle and foot TECHNIQUE: 3 views right foot. 3 views right ankle. COMPARISON: None. RESULT: Right foot: Plate and screw fixation of first metatarsal with what is presumably a healed first metatarsal osteotomy. Hardware is intact. Minimal first MTP joint degenerative change with tiny osteophytes. Healed appearing posterior calcaneal osteotomy transfixed by 2 headless intact screws. Pes cavus. No acute fracture. Right ankle: Amount of chronic bony productive change at the tip of medial and lateral malleolus felt to be from remote injury. There is no acute fracture. The ankle mortise is preserved. Normal-appearing talar dome. Tiny spur anterior lip of the tibia. Small adjacent corticated ossicle. Mild soft tissue swelling about the ankle laterally. ZZZ_DO_NOT_USE_ DIVISION OF RADIOLOGY Provider, [facility] [place] - 07/28/2021 * * *Final Report* * * DATE OF EXAM: Jul 28 2021 11:58AM MOX 5337 - XR FOOT 3V AP/LAT/OBL RT / PROCEDURE REASON: Pain in joint involving right ankle and foot * * * * Physician Interpretation * * * * HISTORY: Pain in joint involving right ankle and foot TECHNIQUE: 3 views right foot. 3 views right ankle. COMPARISON: None. RESULT: Right foot: Plate and screw fixation of first metatarsal with what is presumably a healed first metatarsal osteotomy. Hardware is intact. Minimal first MTP joint degenerative change with tiny osteophytes. Healed appearing posterior calcaneal osteotomy transfixed by 2 headless intact screws. Pes cavus. No acute fracture. Right ankle: Amount of chronic bony productive change at the tip of medial and lateral malleolus felt to be from remote injury. There is no acute fracture. The ankle mortise is preserved. Normal-appearing talar dome. Tiny spur anterior lip of the tibia. Small adjacent corticated ossicle. Mild soft tissue swelling about the ankle laterally. IMPRESSION IMPRESSION: POSTSURGICAL AND MILD DEGENERATIVE CHANGES Boxing And Pressing Supervisor: [facility] Transcribe Date/Time: Jul 28 2021 4:57P Dictated by : CHARLENE SHEFFIELD MD This examination was interpreted and the report reviewed and electronically signed by: CHARLENE SHEFFIELD MD on Jul 28 2021 5:03PM [facility] CT ANGIO BRAINon 06-06-2021 CT ANGIO BRAIN EXAM: CT ANGIO BRAIN, 06/02/2021 10:39 AM CLINICAL INDICATIONS: 50 years Male evaluate stability of known aneurysm RELEVANT CLINICAL HISTORY: I67.1:Cerebral aneurysm COMPARISON: No prior imaging is available, however there is an MRA report from 05/21/2019 which describes a small aneurysm arising at the junction of the left anterior cerebral and anterior communicating arteries. TECHNIQUE: A series of transaxial multislice computerized tomographic images are obtained with helical technique from below skull base through the vertex following bolus intravenous administration of nonionic contrast. Axial thin section source images, as well as sagittal and coronal thin section reformats, were provided at the scanner. Additional multiplanar and 3D reconstructions were provided. CONTRAST: iohexol (OMNIPAQUE) 350 MG/ML injection 1-171 mL; Route of Administration: Intravenous; Dose: 100 mL FINDINGS: Petrous, cavernous, and supraclinoid carotid arteries are unremarkable. No major anatomical variations at [place]. Incidentally, there are 2 left A1 segments. No aneurysm identified at the anterior commuting artery. Anterior, middle and posterior cerebral arteries appear otherwise unremarkable. Intracranial vertebral arteries are unremarkable. Basilar artery is unremarkable. IMPRESSION: No aneurysm or vascular malformation is identified. I personally viewed and interpreted these images and I have reviewed and approved this report. Normal [facility] LIPID PANEL, STANDARDon 05-0 Cholesterol [Mass/Vol] 162 mg/dL Normal <200 Qu est [facility]ostics Comment on above: Performed By: #### 7 600 #### [facility] [address], [address] [place], [place] [id number] Tombstone Setter: John Siddiqui MD Cholesterol in HDL [Mass/Vol] 41 mg/dL Normal > OR = 40 [facility] Comment on above: Performed By: #### 7 600 #### [facility] [address], [address] [place], [place] [id number] Tombstone Setter: John Siddiqui MD Cholesterol in LDL [Mass/Vol] 98 mg/dL Normal [facility] Comment on above: Result Comment: Refe rence range: <100 Desirable range <100 mg/dL for primary prevention; <70 mg/dL for patients with CHD or diabetic patients with > or = 2 CHD risk factors. LDL-C is now calculated using the Julio Cesar calculation, which is a validated novel method providing better accuracy than the Friedewald equation in the estimation of LDL-C. Sean WILLIAM et al. MARIANA. 2013;310(19): 9803-7177 (http://education.[employer]/faq/FME059) Performed By: #### 7 600 #### [facility] [address], [address] [place] [address] Tombstone Setter: John Siddiqui MD Cholesterol.total/Chol esterol in HDL [Mass ratio] 4.0 {ratio} Normal <5.0 [facility] Comment on above: Performed By: #### 7 600 #### [facility] [address], [address] [place] [address] Tombstone Setter: John Siddiqui MD NON HDL CHOLESTEROL 121 mg/dL (calc) Normal <130 [facility] Comment on above: Result Comment: For patients with diabetes plus 1 major ASCVD risk factor, treating to a non-HDL-C goal of <100 mg/dL (LDL-C of <70 mg/dL) is considered a therapeutic option. Performed By: #### 7 600 #### [facility] [address], [address] [place] [address] Tombstone Setter: John Siddiqui MD Triglyceride [Mass/Vol] 131 mg/dL Normal <150 [facility] Comment on above: Performed By: #### 7 600 #### [facility] [place] [address] Tombstone Setter: John Siddiqui MD ANKLE COMPLETE RTon 07-22-19 21 ANKLE COMPLETE RT [place] [id number] Patient: SAL PADILLA Phone#: : 1970 Age: 50 Gender: M Pt. Type: Out Account: [id number] Location: Ordering: AYLA RODRIGUEZ Exam Date: 07/21/2020/10:28 Family Phys: Charge Code: [id number] Physician: Ciales Order #: [id number] DLP Dose#: PROCEDURE: X-RAY ANKLE COMPLETE RT MIN 3 VIEWS COMPARISON: [facility], XR, FOOT RT COMPLETE, 02/21/2016, 12:22. INDICATIONS: Right ankle pain. FINDINGS: BONES: Remote avulsion is present at the tip of the medial malleolus and lateral malleolus. There is no evidence of acute bone abnormality. SOFT TISSUES: Lateral soft tissue swelling is present. EFFUSION: None visible. OTHER: Negative. CONCLUSION: 1. There is no evidence of acute bone abnormality. Dictated by: Halima Lopez MD on 07/21/2020 at 10:57 Approved by: Halima Lopez MD on 07/21/2020 at 11:00 Normal [facility] LIPID PANEL, STANDARDon 03-09 Cholesterol [Mass/Vol] 183 mg/dL Normal <200 Qu est Diagnostics Comment on above: Performed By: #### 7 600 #### [facility], [address] [place] [address] Tombstone Setter: John Siddiqui MD Cholesterol in HDL [Mass/Vol] 42 mg/dL Normal > OR = 40 [facility] Comment on above: Performed By: #### 7 600 #### [facility], [address] [place] [address] Tombstone Setter: John Siddiqui MD Cholesterol in LDL [Mass/Vol] 111 mg/dL High [facility] Comment on above: Result Comment: Refe rence range: <100 Desirable range <100 mg/dL for primary prevention; <70 mg/dL for patients with CHD or diabetic patients with > or = 2 CHD risk factors. LDL-C is now calculated using the Sean-Jeanne calculation, which is a validated novel method providing better accuracy than the Friedewald equation in the estimation of LDL-C. Sean WILLIAM et al. MARIANA. 2013;310(19): 8918-1763 (http://education.[employer]/faq/HDX050) Performed By: #### 7 600 #### [facility], [address] [place] [address] Tombstone Setter: John Siddiqui MD Cholesterol.total/Chol esterol in HDL [Mass ratio] 4.4 {ratio} Normal <5.0 [facility] Comment on above: Performed By: #### 7 600 #### [facility], [address] [place] [address] Tombstone Setter: John Siddiqui MD NON HDL CHOLESTEROL 141 mg/dL (calc) High <130 [facility] Comment on above: Result Comment: For patients with diabetes plus 1 major ASCVD risk factor, treating to a non-HDL-C goal of <100 mg/dL (LDL-C of <70 mg/dL) is considered a therapeutic option. Performed By: #### 7 600 #### [facility]-[address], [address] [place] [address] Tombstone Setter: John Siddiqui MD Triglyceride [Mass/Vol] 180 mg/dL High <150 [facility] Comment on above: Performed By: #### 7 600 #### [facility]-[address], [address] [place] [id number] Tombstone Setter: John Siddiqui MD OPERATIVE PROCEDURESon 11-10 OPERATIVE PROCEDURES [facility] OPERATIVE REPORT NAME ACCOUNT SEX AGE ADMIT DISCHARGE PT MED. RECORD# NUMBER DATE DATE TYPE RANDY [id number] M 49 11/10/19 2 SAL Cohn [id number] ROOM: [facility] DATE OF : 1970 DICTATING PHYSICIAN: Mariela Hoffman DATE OF SURGERY: November 10, 2019 SURGEON: Mariela Hoffman MD ORAL SURGEON: ANESTHESIOLOGIST: Rene Cevallos MD ANESTHETIC: PREOPERATIVE DIAGNOSIS: POSTOPERATIVE DIAGNOSIS: Screening colonoscopy and hemorrhoids. OPERATION PERFORMED: Colonoscopy. COMPLICATIONS: ESTIMATED BLOOD LOSS: None. SPECIMEN: None. DISPOSITION: Stable, to recovery. INDICATIONS: Sal Padilla is a pleasant 49-year-old gentleman referred for screening endoscopy. DESCRIPTION OF OPERATION: After informed consent, he was brought to endoscopy and placed on a padded gurney in the left lateral decubitus position with adequate padding of pressure points and time-out verification done. He was given sedation per Anesthesia with monitoring throughout. Digital examination showed external hemorrhoidal tags, normal tone, and no discrete mass. Prostate was smooth. The Olympus [id number] flexible endoscope was introduced through the anal verge and carefully advanced, protecting the surrounding mucosa. The scope was advanced through the rectal vault and in through the sigmoid colon, descending colon, beyond the splenic flexure, transverse colon, hepatic flexure, and ascending colon toward the Page 1 of 2 SAL PADILLA Operative Report SAL PADILLA : 1970 ileocecal junction. The landmarks were noted and documented. The prep was adequate. There was stool, liquid and particles which were irrigated and suctioned, and the scope was then carefully rotated. The landmarks were documented. The scope was withdrawn with circumferential visualization, irrigation and suctioning in a fzkx-ndy-deeum movement as needed. The cecum and ascending colon were carefully viewed. The transverse, descending and sigmoid colon were carefully viewed. These areas appeared to be healthy. The scope was withdrawn into the rectal vault, retroflexed, rotated, straightened out, and withdrawn with decompression. There were small internal and external hemorrhoidal tags, but there was no tear, no fissure and no fungating mass. No polyps were seen. No biopsies were taken. The patient tolerated the procedure well. He was awakened and will be sent to the recovery room in good condition. The case will be discussed with the patient when he is more awake. He can have repeat endoscopy in 10 years unless he has GI bleeding or other risk factors, in which case he would need to have this repeated sooner. The patient tolerated the procedure well and was stable at the close of the procedure. Dictated By: Mariela Hoffman MD 11/10/19 10:37 JOB #: [id number] Transcribed By: jesus manuel 11/10/19 11:17 Electronically signed by: E-Sign Dr. Mariela Hoffman MD 11/11/19 16:25 Page 2 of 2 SAL PADILLA Operative Report Normal [facility] Vital Signs Date Time Vital Sign Value Performing Clinician Faci lity 09-03-2024 17:36-0400 Body height 180.[address] Sal Arceo MD Work Phone: [facility] 09-03-2024 17:36-0400 Body mass index (BMI) [Ratio] 26.8 kg/m2 Dr. Sal Arceo MD Work Phone: [facility] 09-03-2024 17:36-0400 Body temperature 98.5 [degF] Dr. Sal Arceo MD Work Phone: [facility] 09-03-2024 17:36-0400 Body weight 87.[address] Sal Arceo MD Work Phone: 9(845)568-264582 [place] [address] 09-03-2024 17:36-0400 Diastolic blood pressure 62 mm[Hg] Dr. Sal Arceo MD Work Phone: 6(073)568-498882 [place] [address] 09-03-2024 17:36-0400 Heart rate 67 /min Dr. Sal Arceo MD Work Phone: 7(225)496-299203 [place] [address] 09-03-2024 17:36-0400 Respiratory rate 16 /min Dr. Sal Arceo MD Work Phone: 0(816)175-598803 [place] [address] 09-03-2024 17:36-0400 SaO2% (BldA) [Mass fraction] 98 % Dr. Sal Arceo MD Work Phone: 5(665)220-367203 [place] [address] 09-03-2024 17:36-0400 Systolic blood pressure 122 mm[Hg] Dr. Sal Arceo MD Work Phone: 7(553)344-536403 [place] [address] 08-21-2024 10:09-0400 Body weight 87.[address] Sal Arceo MD Work Phone: 0(496)031-082003 [place] [address] 07-17-2024 10:30-0400 Body weight 87.[address] aSl Arceo MD Work Phone: 0(311)952-693703 [place] [address] 06-09-2024 11:30-0500 Body height 180.[address] Sal Arceo MD Work Phone: 3(993)977-822703 [place] [address] 06-09-2024 11:30-0500 Body weight 86.[address] Sal Arceo MD Work Phone: 8(370)806-330903 [place] [address] 05-15-2024 11:30-0500 Body weight 86.[address] Sal Arceo MD Work Phone: 1(737)440-532503 [place] [address] 04-15-2024 11:00-0500 Body weight 85.[address] Sal Arceo MD Work Phone: 9(709)918-311103 [place] [address] 03-27-2024 11:00-0500 Body weight 85.[address] Sal Arceo MD Work Phone: [facility] 08-01-2023 11:01-0400 Body height 180.34 cm [facility] 08-01-2023 11:01-0400 Body weight 84.36 kg [facility] 05-31-2023 11:30-0500 Body weight 83.91 kg [facility] 05-10-2023 00:53-0500 Body weight 86.72 kg [facility] 04-19-2023 10:45-0500 Body height 180.34 cm [facility] 04-19-2023 10:45-0500 Body weight 86.72 kg [facility] 03-12-2023 11:30-0500 Body height 180.34 cm [facility] 03-12-2023 11:30-0500 Body weight 87.9 kg [facility] 02-22-2023 11:30-0500 Body weight 89.62 kg [facility] 02-07-2023 00:13-0400 Body weight 91.98 kg [facility] 02-01-2023 11:00-0400 Body height 180.34 cm [facility] 02-01-2023 11:00-0400 Body weight 91.98 kg [facility] 12-28-2022 11:00-0400 Body height 180.34 cm [facility] 12-28-2022 11:00-0400 Body weight 96.61 kg [facility] 11-23-2022 12:00-0400 Body weight 102.87 kg [facility] 10-23-2022 12:11-0400 Body weight 106.68 kg [facility] 09-25-2022 12:00-0400 Body weight 110.4 kg [facility] 09-02-2021 10:50-0400 Body height 180.[address] 09-02-2021 10:50-0400 Body weight 109.[address] 08-11-2021 09:33-0400 Body height 180.3 cm Milla Soto MD Work Phone: [facility] 08-11-2021 09:33-0400 Body weight 109.77 kg Milla Soto MD Work Phone: [facility] 07-28-2021 11:38-0400 Body height 180.3 cm Milla Soto MD Work Phone: [facility] 07-28-2021 11:38-0400 Body weight 108.86 kg Milla Soto MD Work Phone: [facility] Encounters Encounter Date Encounter Type Care Provider Facility Start: 09-19-2024 ambulatory Sal Arceo [facility] lity:[facility] Start: 09-03-2024 End: 09-03-2024 Patient encounter procedure Jarrod [facility] Work Phone: Start: 09-03-2024 End: 09-03-[address] Sal Arceo MD Work Phone: [facility] Work Phone: Start: 08-21-2024 End: 09-08-[address] Sal Arceo MD Work Phone: [facility] Work Phone: Start: 08-21-2024 End: 09-08-[address] Sal Arceo MD -Nutritional Services Work Phone: Start: 07-17-2024 End: 08-06-[address] Sal Arceo MD -Nutritional Services Work Phone: Start: 07-17-2024 End: 08-06-2024 ambulatory Sal Arceo Facility:[facility] Start: 06-09-2024 End: 07-07-[address] Sal Arceo MD -Nutritional Services Work Phone: Start: 06-09-2024 End: 07-07-[address] Sal Arceo MD Work Phone: [facility] Work Phone: Start: 05-15-2024 End: 06-06-[address] Sal Arceo MD -Nutritional Services Work Phone: Start: 05-15-2024 End: 06-06-2024 ambulatory Sal Arceo Facility:[facility] Start: 04-15-2024 End: 05-09-[address] Sal Arceo MD -Nutritional Services Work Phone: Start: 04-15-2024 End: 05-09-2024 ambulatory Sal Arceo Facility:[facility] Start: 03-27-2024 End: 04-08-[address] Sal Arceo MD -Nutritional Services Work Phone: Start: 03-27-2024 End: 04-08-2024 ambulatory Sal Arceo Facility:[facility] Start: 02-12-2024 End: 03-08-[facility] Start: 01-01-2024 End: 01-07-20[facility] Start: 10-24-2023 End: 11-07-2023 [facility] Start: 10-02-2023 End: 10-02-2023 [facility] Start: 09-13-2023 End: 10-07-2023 [facility] Start: 08-01-2023 End: 08-07-2023 ambulatory [facility] Work Phone: Start: 08-01-2023 End: 08-07-2023 Discharged Recurring [facility]-Nutritional Services Work Phone: Start: 05-31-2023 End: 06-07-2023 ambulatory [facility] Work Phone: Start: 05-31-2023 End: 06-07-2023 Discharged Recurring [facility]-Nutritional Services Work Phone: Start: 04-19-2023 End: 05-09-2023 ambulatory [facility] Work Phone: Start: 04-19-2023 End: 05-09-2023 Discharged Recurring [facility]-Nutritional Services Work Phone: Start: 03-12-2023 End: 04-08-2023 ambulatory [facility] Work Phone: Start: 03-12-2023 End: 04-08-2023 Discharged Recurring [facility]-Nutritional Services Work Phone: Start: 02-22-2023 End: 03-08-2023 ambulatory [facility] Work Phone: Start: 02-22-2023 End: 03-08-2023 Discharged Recurring [facility]-Nutritional Services Work Phone: Start: 02-01-2023 End: 02-06-2023 ambulatory [facility] Work Phone: Start: 02-01-2023 End: 02-06-2023 Discharged Recurring [facility]-Nutritional Services Work Phone: Start: 12-28-2022 End: 01-06-2023 ambulatory [facility] Work Phone: Start: 12-28-2022 End: 01-06-2023 Discharged Recurring [facility]-Nutritional Services Work Phone: Start: 11-23-2022 End: 12-07-2022 Discharged Recurring [facility]-Nutritional Services Work Phone: Start: 10-23-2022 End: 11-06-2022 Discharged Recurring [facility]-Nutritional Services Work Phone: Start: 09-25-2022 End: 10-06-2022 Discharged Recurring [facility]-Nutritional Services Work Phone: Start: 09-06-2022 End: 09-06-2022 ambulatory [facility] Work Phone: Start: 09-06-2022 End: 09-06-2022 Discharged Recurring [facility]-Nutritional Services Start: 08-02-2022 End: 08-02-2022 ambulatory [facility] Work Phone: Start: 08-02-2022 End: 08-02-2022 Patient encounter procedure [facility]-Pete Mcdonald Start: 07-31-2022 End: 07-31-2022 ambulatory [facility] Work Phone: Start: 07-31-2022 End: 07-31-2022 Discharged Recurring [facility]-Physical Therapy Start: 06-08-2022 End: 06-08-2022 ambulatory [facility] Facility:[facility] Start: 06-08-2022 End: 06-08-2022 Patient encounter procedure Milla Soto MD Work Phone: Orthopedics Comment on above: Acquired cavovarus d eformity of foot, right (Primary Dx) Start: 06-08-2022 End: 06-08-2022 Subsequent hospital visit by physician Thomas Corona Dr. Scribbles Work Phone: Radiology Comment on above: Acquired cavovarus d eformity of foot, 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] Start: 03-06-2022 End: 03-06-2022 ambulatory SAL ARCEO Facility:[facility] Start: 03-06-2022 End: 03-06-2022 Patient encounter procedure Milla Soto MD Work Phone: Orthopedics Comment on above: Acquired cavovarus d eformity of foot, right (Primary Dx) Start: 03-06-2022 End: 03-06-2022 Subsequent hospital visit by physician Thomas Corona Dr. Scribbles Work Phone: Radiology Comment on above: Right ankle pain, un specified chronicity [M25.571] Start: 01-24-2022 Refill Ofelia haynes PA-C Work Phone: Orthopaedics Comment on above: Refill Request Start: 01-05-2022 End: 01-05-2022 ambulatory MILLA SOTO Facility:[facility] Start: 01-05-2022 End: 01-05-2022 Patient encounter procedure Milla Soto MD Work Phone: Orthopedics Comment on above: Right ankle pain, un specified chronicity (Primary Dx) Start: 01-05-2022 End: 01-05-2022 Subsequent hospital visit by physician Thomas Corona Dr. Scribbles Work Phone: Radiology Comment on above: Right ankle pain, un specified chronicity [M25.571] Start: 11-24-2021 End: 11-24-2021 ambulatory [facility] Facility:[facility] Start: 11-24-2021 End: 11-24-2021 Patient encounter procedure Milla Soto MD Work Phone: Orthopedics Comment on above: Acquired cavovarus d eformity of foot, right (Primary Dx) Start: 11-24-2021 End: 11-24-2021 Subsequent hospital visit by physician Thomas Corona Dr. Scribbles Work Phone: Radiology Comment on above: Acquired cavovarus d eformity of foot, 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] Start: 11-23-2021 Orders Only Milla bryant MD Work Phone: Orthopedics Comment on above: Acquired cavovarus d eformity of foot, right (Primary Dx) Start: 10-27-2021 End: 10-27-2021 ambulatory [facility] Facility:[facility] Start: 10-27-2021 End: 10-27-2021 Patient encounter procedure Milla Soto MD Work Phone: Orthopedics Comment on above: Acquired cavovarus d eformity of foot, right (Primary Dx) Start: 10-27-2021 End: 10-27-2021 Subsequent hospital visit by physician Thomas Corona Dr. Scribbles Work Phone: Radiology Comment on above: Acquired cavovarus d eformity of foot, 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] Start: 10-13-2021 End: 10-13-2021 [facility] Facility:[facility] Start: 10-13-2021 End: 10-13-2021 Patient encounter procedure Milla Soto MD Work Phone: Orthopedics Comment on above: Acquired cavovarus d eformity of foot, right (Primary Dx) Start: 10-13-2021 End: 10-13-2021 Subsequent hospital visit by physician Thomas Giraldo Work Phone: Radiology Comment on above: Pain in joint involv ing right ankle and foot [M25.571] Start: 09-30-2021 Telephone encounter Milla baumann MD Work Phone: [facility] [place] Comment on above: Patient Update (Call ing for patient update) Start: 09-27-2021 End: 09-27-2021 ambulatory SAL ARCEO Facility:[facility] Start: 09-27-2021 End: 09-27-2021 Patient encounter procedure Ofelia Clay PA-C Work Phone: Orthopaedics Comment on above: Acquired cavovarus d eformity of foot, right (Primary Dx); Postop check Start: 09-22-2021 End: 09-22-2021 ambulatory SAL ARCEO Facility:[facility] Start: 09-22-2021 Telephone encounter Siva bermudez PA-C Work Phone: Pain Management Comment on above: Recheck Start: 09-20-2021 End: 09-22-2021 ambulatory SAL ARCEO Facility:[facility] Start: 09-09-2021 End: 09-09-2021 [facility] SAL ARCEO Facility:[facility] Start: 09-09-2021 Telephone encounter Ofelia Burns Pre Anesthesia Comment on above: PreOp Call (labs ord ered ) Start: 09-02-2021 End: 09-02-2021 ambulatory SAL ARCEO Facility:[facility] Start: 09-02-2021 End: 09-02-2021 Admission to [address] 2 [facility] 1 Start: 09-02-2021 End: 09-02-2021 [facility] 2 Pre Anesthesia Comment on above: Preoperative examina tion (Primary Dx); Acquired cavovarus deformity of foot, right; Hyperlipidemia, unspecified hyperlipidemia type; Cerebral aneurysm; BMI 34.0-34.9,adult Start: 09-02-2021 End: 09-02-2021 Preprocedural examination done Pacc 2 Pre Anesthesia Start: 08-25-2021 End: 08-25-2021 ambulatory SAL ARCEO Facility:[facility] Start: 08-25-2021 End: 08-25-2021 Patient encounter procedure Milla Soto MD Work Phone: Orthopedics Comment on above: Acquired cavovarus d eformity of foot, right (Primary Dx) Start: 08-14-2021 End: 08-14-2021 ambulatory MILLA SOTO Facility:[facility] Start: 08-14-2021 End: 08-14-2021 Subsequent hospital visit by physician Julián [address] [employer] (I-Stat/1.5t/3t) Work Phone: MRI Q Comment on above: Peroneal tendinitis of right lower extremity [M76.71] Start: 08-11-2021 End: 08-11-2021 ambulatory MILLA SOTO Facility:[facility] Start: 08-11-2021 End: 08-11-2021 Patient encounter procedure Milla Soto MD Work Phone: Orthopedics Comment on above: Cavovarus deformity of foot (Primary Dx) Start: 08-04-2021 End: 08-04-2021 ambulatory MILLA SOTO Facility:[facility] Start: 08-02-2021 End: 08-02-2021 Patient encounter procedure [facility] Start: 08-01-2021 Encounter for other preprocedural examination MILLA SOTO [facility] Start: 07-30-2021 End: 08-01-2021 ambulatory SAL ARCEO Facility:[facility] Start: 07-28-2021 End: 07-28-2021 ambulatory AYLA RODRIGUEZ Facility:[facility] Start: 07-28-2021 End: 07-28-2021 Subsequent hospital visit by physician Thomas Giraldo Work Phone: Radiology Comment on above: Pain in joint involv ing right ankle and foot [M25.571] Start: 07-28-2021 End: 07-28-2021 Patient encounter procedure Milla Soto MD Work Phone: Orthopedics Comment on above: Pain in joint involv ing right ankle and foot (Primary Dx); Peroneal tendinitis of right lower extremity Start: 07-11-2021 End: 07-11-2021 Discharged Recurring [facility]-Physical Therapy Start: 07-11-2021 Registered Recurring [facility]-Physical Therapy Start: 06-06-2021 ambulatory AYLA Purcell NABEEL Faci lity:[facility] Start: 06-02-2021 ambulatory MILLA MCGILL Facilkarli ty:[facility] Start: 05-24-2021 End: 05-24-2021 Patient encounter procedure [facility]-Radiology, [place] Start: 07-21-2020 End: 07-21-2020 Patient encounter procedure [facility] Start: 11-10-2019 End: 11-10-2019 Patient encounter procedure MARIELA HOFFMAN [facility] Start: 11-07-2019 Patient encounter procedure [facility] Start: 09-18-2019 End: 09-18-2019 Patient encounter procedure JUDITH RAMAN [facility] Procedures Date Procedure Procedure Detail Performing Clinician Start: 06-08-2022 Radex ankle complete minimum 3 views Milla Soto MD Work Phone: Start: 03-06-2022 Radex ankle complete minimum 3 views Milla Soto MD Work Phone: Start: 01-05-2022 Radex foot complete minimum 3 views Qing Alvarez RN Work Phone: Start: 11-24-2021 Radex ankle complete minimum 3 views Julio Kumari PA-C Work Phone: Start: 10-27-2021 Radex ankle complete minimum 3 views Milla Soto MD Work Phone: Start: 08-14-2021 Mri any jt lower ext rem w/o contrast matrl Milla Soto MD Work Phone: Start: 07-28-2021 Radex ankle complete minimum 3 views Milla Soto MD Work Phone: Start: 05-24-2021 Plain x-ray for bone length measurement Plan of Treatment Date Care Activity Detail Author Start: 09-22-2024 DIABETES SCREEN DIABETES SCREEN [facility] Start: 09-22-2024 Diabetes Screening Diabetes Screenin g [facility] Start: 12-09-2023 Covid-19 Vaccine ( season) Covid-19 Vaccine () [facility] Start: 12-09-2023 Influenza vaccination Influenza Vacc ine (#1) [facility] Start: 06-29-2023 Prostate specific antigen measurement Prostate Cancer Screening Discussion [facility] Start: 04-09-2022 DEPRESSION ASSESSMENT DEPRESSION ASS ESSMENT [facility] Start: 12-08-2021 Influenza vaccination C [facility] Start: 08-25-2021 End: 10-25-2021 Basic metabolic 2000 panel - Serum or Plasma BASIC METABOLIC PNL Lab Routine Acquired cavovarus deformity of foot, right Expected: 08/25/2021, Expires: 10/25/2021 [facility] Work Phone: Comment on above: Expected: 08/25/2021 , Expires: 10/25/2021 Start: 08-25-2021 End: 10-25-2021 CBC W Auto Differential panel - Blood CBC + DIFF Lab Routine Acquired cavovarus deformity of foot, right Expected: 08/25/2021, Expires: 10/25/2021 [facility] Work Phone: Comment on above: Expected: 08/25/2021 , Expires: 10/25/2021 Start: 04-09-2021 DEPRESSION ASSESSMENT DEPRESSION ASS ESSMENT [facility] Start: 2018 SHINGRIX VACCINE (1 of 2) SHINGRIX VACCINE (1 of 2) [facility] Start: 2013 COLOGUARD (FIT-DNA) COLOGUARD (FIT-D NA) [facility] Start: 2013 Colonoscopy COLONOSCOPY [facility] Start: 2013 COLORECTAL CANCER SCREENING COLORECTAL CANCER SCREENING [facility] Start: [address] COLONOGRAPHY [facility] Start: 2013 DIABETES SCREEN DIABETES SCREEN [facility] Start: 2013 FECAL OCCULT BLOOD FECAL OCCULT BLOO D [facility] Start: 2013 Screening for malign ant neoplasm of colon [facility] Start: 2013 SIGMOIDOSCOPY SIGMOIDOSCOPY [facility] Start: 06-29-2003 Lipid panel Lipid Screening [facility] Start: 06-29-2003 LIPID SCREEN LIPID SCREEN [facility] Start: 06-29-1987 Hepatitis B Vaccine (1 of 3 - 19+ 3-dose series) Hepatitis B Vaccine (1 of 3 - 19+ 3-dose series) [facility] Start: 06-29-1987 Urine microalbumin profile [facility] Start: 1986 Anxiety Screening Anxiety Screening [facility] Start: 1986 Depression Screening Depression Scre ing [facility] Start: 1986 HEPATITIS C SCREENING HEPATITIS C [facility] Start: 1986 Hepatitis C screening Hepatitis C [facility] Start: 1986 HIV SCREENING HIV SCREENING [facility] Start: 1986 HIV screening HIV Screening [facility] Start: 1980 Adult depression screening assessment DEPRESSION SCREENING [facility] Start: 1973 COVID-19 VACCINE (#1) COVID-19 VACCI NE (#1) [facility] Start: 1973 COVID-19 VACCINE (1) COVID-19 VACCIN E (1) [facility] Start: 1968 COVID-19 VACCINE (#1) COVID-19 VACCI NE (#1) [facility] Start: 1968 HEPATITIS B (1 of 3 - 3-dose series) HEPATITIS B (1 of 3 - 3-dose series) [facility] End: 08-27-2022 Mri any jt lower extrem w/o contrast matrl MRI ANKLE WO IVCON RT Radiology Routine Peroneal tendinitis of right lower extremity 1 Occurrences starting 07/28/2021 until 08/27/2022 [facility] Work Phone: Comment on above: 1 Occurrences starti ng 07/28/2021 until 08/27/2022 End: 11-12-2022 XR ANKLE GENERAL 3V AP/LAT/OBL RIGHT XR ANKLE GENERAL 3V AP/LAT/OBL RIGHT Radiology Routine Acquired cavovarus deformity of foot, right 1 Occurrences starting 10/13/2021 until 11/12/2022 [facility] Work Phone: Comment on above: 1 Occurrences starti ng 10/13/2021 until 11/12/2022 End: 12-23-2022 XR ANKLE GENERAL 3V AP/LAT/OBL RIGHT XR ANKLE GENERAL 3V AP/LAT/OBL RIGHT Radiology Routine Acquired cavovarus deformity of foot, right 1 Occurrences starting 11/23/2021 until 12/23/2022 [facility] Work Phone: Comment on above: 1 Occurrences starti ng 11/23/2021 until 12/23/2022 End: 02-04-2023 XR ANKLE GENERAL 3V AP/LAT/OBL RIGHT XR ANKLE GENERAL 3V AP/LAT/OBL RIGHT Radiology Routine Right ankle pain, unspecified chronicity 1 Occurrences starting 01/05/2022 until 02/04/2023 [facility] Work Phone: Comment on above: 1 Occurrences starti ng 01/05/2022 until 02/04/2023 End: 04-05-2023 XR ANKLE GENERAL 3V AP/LAT/OBL RIGHT XR ANKLE GENERAL 3V AP/LAT/OBL RIGHT Radiology Routine Acquired cavovarus deformity of foot, right 1 Occurrences starting 03/06/2022 until 04/05/2023 [facility] Work Phone: Comment on above: 1 Occurrences starti ng 03/06/2022 until 04/05/2023 End: 08-27-2022 XR CALCANEUS 2V AXIAL/LAT RIGHT XR CALCANEUS 2V AXIAL/LAT RIGHT Radiology Routine Pain in joint involving right ankle and foot Peroneal tendinitis of right lower extremity 1 Occurrences starting 07/28/2021 until 08/27/2022 [facility] Work Phone: Comment on above: 1 Occurrences starti ng 07/28/2021 until 08/27/2022 End: 11-12-2022 XR FOOT GENERAL 3V AP/LAT/OBL RIGHT XR FOOT GENERAL 3V AP/LAT/OBL RIGHT Radiology Routine Acquired cavovarus deformity of foot, right 1 Occurrences starting 10/13/2021 until 11/12/2022 [facility] Work Phone: Comment on above: 1 Occurrences starti ng 10/13/2021 until 11/12/2022 End: 12-23-2022 XR FOOT GENERAL 3V AP/LAT/OBL RIGHT XR FOOT GENERAL 3V AP/LAT/OBL RIGHT Radiology Routine Acquired cavovarus deformity of foot, right 1 Occurrences starting 11/23/2021 until 12/23/2022 [facility] Work Phone: Comment on above: 1 Occurrences starti ng 11/23/2021 until 12/23/2022 [facility] Payers Date Payer Category Payer Self-pay [id number] 2018 Unknown [id number] 2018 Unknown MMO MMO SUPERMED PLUS [id number] 2018-Present [phone] [address] [place] [address] PPO [id number] 2018 Unknown [id number] [id number] [id number] 2006 Unknown [id number] 1970 Unknown [id number] 2.16.840.1.093086.3.579.2.651 1970 Unknown [id number] 2.16.840.1.953328.3.579.2.651 1968 Unknown [id number] 2.16.840.1.059461.3.579.2.651 1968 Unknown [id number] 2.840.1.196518.3.579.2.651 1968 Unknown [id number] 2.16.840.1.005118.3.579.2.594 1970 Unknown [id number] 2.840.1.230283.3.579.2.594 Unknown [id number] Unknown [id number] 2.840.1.519754.3.579.2.462 Unknown [id number] 2.840.1.586684.3.579.2.462 Unknown [id number] 2.840.1.314770.3.579.2.462 Unknown [id number] 2.840.1.080748.3.579.2.462 Unknown [id number] 2.840.1.410148.3.579.2.462 Unknown [id number] 2.840.1.007650.3.579.2.462 Unknown [id number] 2.840.1.073033.3.579.2.462 Unknown [id number] 2.840.1.300781.3.579.2.462 Unknown [id number] 2.840.1.311494.3.579.2.462 Unknown [id number] 2.840.1.327868.3.579.2.462 Unknown [id number] 2.840.1.963101.3.579.2.462 Unknown [id number] 2.840.1.260010.3.579.2.462 Unknown [id number] 2.840.1.359858.3.579.2.462 Social History Date Type Detail Facility Start: 12-03-2020 End: 07-28-2021 Tobacco smoking status NHIS Ex-smoker [facility] End: 04-09-2003 History of tobacco use Current smoker [facility] Start: 07-28-2021 End: 09-02-2021 Alcohol intake Current drinker of alcohol (finding) [facility] Start: 07-28-2021 End: 07-29-2021 Alcohol intake [facility] Start: 1970 Sex Assigned At Male C [facility] Start: 07-18-2021 End: 09-27-2021 Exposure to SARS-CoV-2 (event) Not sure [facility] Start: 05-03-2019 End: 12-03-2020 Tobacco smoking status FLIS Unknown if ever smoked [facility] Start: 07-29-2021 History SDOH Alcohol Comment 1-2 x per month. [facility] End: 04-09-2003 History of tobacco use Cigarette Smoker [facility] Start: 07-28-2021 End: 11-24-2021 Tobacco use and exposure Smokeless tobacco non-user [facility] Start: 11-24-2021 [facility] Start: 07-29-2021 End: 06-08-2022 Tobacco use panel [facility] National Score (1-100), lower number is lower risk 56 [facility] Start: 07-27-2021 Gender identity Identifies as male gender (finding) [facility] Start: 07-08-2024 Sex Male (finding) [facility] Medical Equipment Procedure Code Equipment Code Equipment Origin al Text Equipment Identifier Dates Fusion, talonavicular joint 5 Hole T Plate 2.4mm FDA Start: 12-10-2020 Fusion, talonavicular joint Locking 2.4mm Screws FDA Start: 12-10-2020 Fusion, talonavicular joint Locking 2.4mm Screws FDA Start: 12-10-2020 Fusion, talonavicular joint 18mm Cortical 2.4mm Screw FDA Start: 12-10-2020 Fusion, talonavicular joint 60mm 7.0mm HC Screw FDA Start: 12-10-2020 Fusion, talonavicular joint 65mm 7.0 HC Screw FDA Start: 12-10-2020 Fusion, talonavicular joint GASTROC ENDOBLADE RECESION SYS FDA Start: 12-10-2020 Fusion, talonavicular joint Locking 2.4mm Screws FDA Start: 12-10-2020 Fusion, talonavicular joint Locking 2.4mm Screws FDA Start: 12-10-2020 Fusion, talonavicular joint Locking 2.4mm Screws FDA Start: 12-10-2020 Fusion, talonavicular joint Locking 2.4mm Screws FDA Start: 12-10-2020 Fusion, talonavicular joint 18mm Cortical 2.4mm Screw FDA Start: 12-10-2020 Fusion, talonavicular joint Locking 2.4mm Screws FDA Start: 12-10-2020 Fusion, talonavicular joint Locking 2.4mm Screws FDA Start: 12-10-2020 Fusion, talonavicular joint 5 Hole T Plate 2.4mm FDA Start: 12-10-2020 Fusion, talonavicular joint 60mm 7.0mm HC Screw FDA Start: 12-10-2020 Fusion, talonavicular joint 65mm 7.0 HC Screw FDA Start: 12-10-2020 Fusion, talonavicular joint GASTROC ENDOBLADE RECESION SYS FDA Start: 12-10-2020 Fusion, talonavicular joint Locking 2.4mm Screws FDA Start: 12-10-2020 Fusion, talonavicular joint Locking 2.4mm Screws FDA Start: 12-10-2020 Fusion, talonavicular joint Locking 2.4mm Screws FDA Start: 12-10-2020 Fusion, talonavicular joint Locking 2.4mm Screws FDA Start: 12-10-2020 Fusion, talonavicular joint 18mm Cortical 2.4mm Screw FDA Start: 12-10-2020 Fusion, talonavicular joint Locking 2.4mm Screws FDA Start: 12-10-2020 Fusion, talonavicular joint Locking 2.4mm Screws FDA Start: 12-10-2020 Fusion, talonavicular joint 5 Hole T Plate 2.4mm FDA Start: 12-10-2020 Fusion, talonavicular joint 60mm 7.0mm HC Screw FDA Start: 12-10-2020 Fusion, talonavicular joint 65mm 7.0 HC Screw FDA Start: 12-10-2020 Fusion, talonavicular joint GASTROC ENDOBLADE RECESION SYS FDA Start: 12-10-2020 Fusion, talonavicular joint Locking 2.4mm Screws FDA Start: 12-10-2020 Fusion, talonavicular joint Locking 2.4mm Screws FDA Start: 12-10-2020 Fusion, talonavicular joint Locking 2.4mm Screws FDA Start: 12-10-2020 Fusion, talonavicular joint Locking 2.4mm Screws FDA Start: 12-10-2020 Fusion, talonavicular joint 18mm Cortical 2.4mm Screw FDA Start: 12-10-2020 Fusion, talonavicular joint Locking 2.4mm Screws FDA Start: 12-10-2020 Fusion, talonavicular joint Locking 2.4mm Screws FDA Start: 12-10-2020 Fusion, talonavicular joint 5 Hole T Plate 2.4mm FDA Start: 12-10-2020 Fusion, talonavicular joint 60mm 7.0mm HC Screw FDA Start: 12-10-2020 Fusion, talonavicular joint 65mm 7.0 HC Screw FDA Start: 12-10-2020 Fusion, talonavicular joint GASTROC ENDOBLADE RECESION SYS FDA Start: 12-10-2020 Fusion, talonavicular joint Locking 2.4mm Screws FDA Start: 12-10-2020 Fusion, talonavicular joint Locking 2.4mm Screws FDA Start: 12-10-2020 Fusion, talonavicular joint Locking 2.4mm Screws FDA Start: 12-10-2020 Fusion, talonavicular joint Locking 2.4mm Screws FDA Start: 12-10-2020 Fusion, talonavicular joint 18mm Cortical 2.4mm Screw FDA Start: 12-10-2020 Fusion, talonavicular joint Locking 2.4mm Screws FDA Start: 12-10-2020 Fusion, talonavicular joint Locking 2.4mm Screws FDA Start: 12-10-2020 Fusion, talonavicular joint 5 Hole T Plate 2.4mm FDA Start: 12-10-2020 Fusion, talonavicular joint 60mm 7.0mm HC Screw FDA Start: 12-10-2020 Fusion, talonavicular joint 65mm 7.0 HC Screw FDA Start: 12-10-2020 Fusion, talonavicular joint GASTROC ENDOBLADE RECESION SYS FDA Start: 12-10-2020 Fusion, talonavicular joint Locking 2.4mm Screws FDA Start: 12-10-2020 Fusion, talonavicular joint Locking 2.4mm Screws FDA Start: 12-10-2020 Fusion, talonavicular joint Locking 2.4mm Screws FDA Start: 12-10-2020 Fusion, talonavicular joint Locking 2.4mm Screws FDA Start: 12-10-2020 Fusion, talonavicular joint 18mm Cortical 2.4mm Screw FDA Start: 12-10-2020 Fusion, talonavicular joint Locking 2.4mm Screws FDA Start: 12-10-2020 Fusion, talonavicular joint Locking 2.4mm Screws FDA Start: 12-10-2020 Fusion, talonavicular joint 5 Hole T Plate 2.4mm FDA Start: 12-10-2020 Fusion, talonavicular joint 60mm 7.0mm HC Screw FDA Start: 12-10-2020 Fusion, talonavicular joint 65mm 7.0 HC Screw FDA Start: 12-10-2020 Fusion, talonavicular joint GASTROC ENDOBLADE RECESION SYS FDA Start: 12-10-2020 Fusion, talonavicular joint Locking 2.4mm Screws FDA Start: 12-10-2020 Fusion, talonavicular joint Locking 2.4mm Screws FDA Start: 12-10-2020 Fusion, talonavicular joint Locking 2.4mm Screws FDA Start: 12-10-2020 Fusion, talonavicular joint Locking 2.4mm Screws FDA Start: 12-10-2020 Fusion, talonavicular joint 18mm Cortical 2.4mm Screw FDA Start: 12-10-2020 Fusion, talonavicular joint Locking 2.4mm Screws FDA Start: 12-10-2020 Fusion, talonavicular joint Locking 2.4mm Screws FDA Start: 12-10-2020 Fusion, talonavicular joint 5 Hole T Plate 2.4mm FDA Start: 12-10-2020 Fusion, talonavicular joint 60mm 7.0mm HC Screw FDA Start: 12-10-2020 Fusion, talonavicular joint 65mm 7.0 HC Screw FDA Start: 12-10-2020 Fusion, talonavicular joint GASTROC ENDOBLADE RECESION SYS FDA Start: 12-10-2020 Fusion, talonavicular joint Locking 2.4mm Screws FDA Start: 12-10-2020 Fusion, talonavicular joint Locking 2.4mm Screws FDA Start: 12-10-2020 Fusion, talonavicular joint Locking 2.4mm Screws FDA Start: 12-10-2020 Fusion, talonavicular joint Locking 2.4mm Screws FDA Start: 12-10-2020 Fusion, talonavicular joint 18mm Cortical 2.4mm Screw FDA Start: 12-10-2020 Fusion, talonavicular joint Locking 2.4mm Screws FDA Start: 12-10-2020 Fusion, talonavicular joint Locking 2.4mm Screws FDA Start: 12-10-2020 Fusion, talonavicular joint 5 Hole T Plate 2.4mm FDA Start: 12-10-2020 Fusion, talonavicular joint 60mm 7.0mm HC Screw FDA Start: 12-10-2020 Fusion, talonavicular joint 65mm 7.0 HC Screw FDA Start: 12-10-2020 Fusion, talonavicular joint GASTROC ENDOBLADE RECESION SYS FDA Start: 12-10-2020 Fusion, talonavicular joint Locking 2.4mm Screws FDA Start: 12-10-2020 Fusion, talonavicular joint Locking 2.4mm Screws FDA Start: 12-10-2020 Fusion, talonavicular joint Locking 2.4mm Screws FDA Start: 12-10-2020 Fusion, talonavicular joint Locking 2.4mm Screws FDA Start: 12-10-2020 Fusion, talonavicular joint 18mm Cortical 2.4mm Screw FDA Start: 12-10-2020 Fusion, talonavicular joint Locking 2.4mm Screws FDA Start: 12-10-2020 Fusion, talonavicular joint Locking 2.4mm Screws FDA Start: 12-10-2020 Fusion, talonavicular joint 5 Hole T Plate 2.4mm FDA Start: 12-10-2020 Fusion, talonavicular joint 60mm 7.0mm HC Screw FDA Start: 12-10-2020 Fusion, talonavicular joint 65mm 7.0 HC Screw FDA Start: 12-10-2020 Fusion, talonavicular joint GASTROC ENDOBLADE RECESION SYS FDA Start: 12-10-2020 Fusion, talonavicular joint Locking 2.4mm Screws FDA Start: 12-10-2020 Fusion, talonavicular joint Locking 2.4mm Screws FDA Start: 12-10-2020 Fusion, talonavicular joint Locking 2.4mm Screws FDA Start: 12-10-2020 Fusion, talonavicular joint Locking 2.4mm Screws FDA Start: 12-10-2020 Fusion, talonavicular joint 18mm Cortical 2.4mm Screw FDA Start: 12-10-2020 Fusion, talonavicular joint Locking 2.4mm Screws FDA Start: 12-10-2020 Fusion, talonavicular joint Locking 2.4mm Screws FDA Start: 12-10-2020 Fusion, talonavicular joint 5 Hole T Plate 2.4mm FDA Start: 12-10-2020 Fusion, talonavicular joint 60mm 7.0mm HC Screw FDA Start: 12-10-2020 Fusion, talonavicular joint 65mm 7.0 HC Screw FDA Start: 12-10-2020 Fusion, talonavicular joint GASTROC ENDOBLADE RECESION SYS FDA Start: 12-10-2020 Fusion, talonavicular joint Locking 2.4mm Screws FDA Start: 12-10-2020 Fusion, talonavicular joint Locking 2.4mm Screws FDA Start: 12-10-2020 Fusion, talonavicular joint Locking 2.4mm Screws FDA Start: 12-10-2020 Fusion, talonavicular joint Locking 2.4mm Screws FDA Start: 12-10-2020 Fusion, talonavicular joint 18mm Cortical 2.4mm Screw FDA Start: 12-10-2020 Fusion, talonavicular joint Locking 2.4mm Screws FDA Start: 12-10-2020 Fusion, talonavicular joint Locking 2.4mm Screws FDA Start: 12-10-2020 Fusion, talonavicular joint 5 Hole T Plate 2.4mm FDA Start: 12-10-2020 Fusion, talonavicular joint 60mm 7.0mm HC Screw FDA Start: 12-10-2020 Fusion, talonavicular joint 65mm 7.0 HC Screw FDA Start: 12-10-2020 Fusion, talonavicular joint GASTROC ENDOBLADE RECESION SYS FDA Start: 12-10-2020 Fusion, talonavicular joint Locking 2.4mm Screws FDA Start: 12-10-2020 Fusion, talonavicular joint Locking 2.4mm Screws FDA Start: 12-10-2020 Fusion, talonavicular joint Locking 2.4mm Screws FDA Start: 12-10-2020 Fusion, talonavicular joint Locking 2.4mm Screws FDA Start: 12-10-2020 Fusion, talonavicular joint 18mm Cortical 2.4mm Screw FDA Start: 12-10-2020 Fusion, talonavicular joint Locking 2.4mm Screws FDA Start: 12-10-2020 Fusion, talonavicular joint Locking 2.4mm Screws FDA Start: 12-10-2020 Fusion, talonavicular joint 5 Hole T Plate 2.4mm FDA Start: 12-10-2020 Fusion, talonavicular joint 60mm 7.0mm HC Screw FDA Start: 12-10-2020 Fusion, talonavicular joint 65mm 7.0 HC Screw FDA Start: 12-10-2020 Fusion, talonavicular joint GASTROC ENDOBLADE RECESION SYS FDA Start: 12-10-2020 Fusion, talonavicular joint Locking 2.4mm Screws FDA Start: 12-10-2020 Fusion, talonavicular joint Locking 2.4mm Screws FDA Start: 12-10-2020 Fusion, talonavicular joint Locking 2.4mm Screws FDA Start: 12-10-2020 Fusion, talonavicular joint Locking 2.4mm Screws FDA Start: 12-10-2020 Fusion, talonavicular joint 18mm Cortical 2.4mm Screw FDA Start: 12-10-2020 Fusion, talonavicular joint Locking 2.4mm Screws FDA Start: 12-10-2020 Fusion, talonavicular joint Locking 2.4mm Screws FDA Start: 12-10-2020 Fusion, talonavicular joint 5 Hole T Plate 2.4mm FDA Start: 12-10-2020 Fusion, talonavicular joint 60mm 7.0mm HC Screw FDA Start: 12-10-2020 Fusion, talonavicular joint 65mm 7.0 HC Screw FDA Start: 12-10-2020 Fusion, talonavicular joint GASTROC ENDOBLADE RECESION SYS FDA Start: 12-10-2020 Fusion, talonavicular joint Locking 2.4mm Screws FDA Start: 12-10-2020 Fusion, talonavicular joint Locking 2.4mm Screws FDA Start: 12-10-2020 Fusion, talonavicular joint Locking 2.4mm Screws FDA Start: 12-10-2020 Fusion, talonavicular joint Locking 2.4mm Screws FDA Start: 12-10-2020 Fusion, talonavicular joint 18mm Cortical 2.4mm Screw FDA Start: 12-10-2020 Fusion, talonavicular joint Locking 2.4mm Screws FDA Start: 12-10-2020 Fusion, talonavicular joint Locking 2.4mm Screws FDA Start: 12-10-2020 Fusion, talonavicular joint 5 Hole T Plate 2.4mm FDA Start: 12-10-2020 Fusion, talonavicular joint 60mm 7.0mm HC Screw FDA Start: 12-10-2020 Fusion, talonavicular joint 65mm 7.0 HC Screw FDA Start: 12-10-2020 Fusion, talonavicular joint GASTROC ENDOBLADE RECESION SYS FDA Start: 12-10-2020 Fusion, talonavicular joint Locking 2.4mm Screws FDA Start: 12-10-2020 Fusion, talonavicular joint Locking 2.4mm Screws FDA Start: 12-10-2020 Fusion, talonavicular joint Locking 2.4mm Screws FDA Start: 12-10-2020 Fusion, talonavicular joint Locking 2.4mm Screws FDA Start: 12-10-2020 Fusion, talonavicular joint 18mm Cortical 2.4mm Screw FDA Start: 12-10-2020 Fusion, talonavicular joint Locking 2.4mm Screws FDA Start: 12-10-2020 Fusion, talonavicular joint Locking 2.4mm Screws FDA Start: 12-10-2020 Fusion, talonavicular joint 5 Hole T Plate 2.4mm FDA Start: 12-10-2020 Fusion, talonavicular joint 60mm 7.0mm HC Screw FDA Start: 12-10-2020 Fusion, talonavicular joint 65mm 7.0 HC Screw FDA Start: 12-10-2020 Fusion, talonavicular joint GASTROC ENDOBLADE RECESION SYS FDA Start: 12-10-2020 Fusion, talonavicular joint Locking 2.4mm Screws FDA Start: 12-10-2020 Fusion, talonavicular joint Locking 2.4mm Screws FDA Start: 12-10-2020 Fusion, talonavicular joint Locking 2.4mm Screws FDA Start: 12-10-2020 Fusion, talonavicular joint Locking 2.4mm Screws FDA Start: 12-10-2020 Harrod Sut Dx Fi bertab - [id number] Start: 09-20-2021 Harrod Sut Dx Fi bertab - [id number] Start: 09-20-2021 Harrod Sut Dx Fi bertab - [id number] Start: 09-20-2021 Graft Bone Sub M 5cc Osteostrand - [id number] Start: 09-20-2021 Graft Bone 15ml 1-4mm Cancellous Osteoconductive Packable Rsorbabl Crushed - [id number] Start: 09-20-2021 Graft Bn Augment Inj 1.5cc - [id number] Start: 09-20-2021 Graft Bn Augment Inj 1.5cc - [id number] Start: 09-20-2021 Internalbrace Li gament Augmentation Repair Kit [id number] Start: 09-20-2021 Screw Acutrak 2 7.5mm Full Thread Titanium 90mm Bone Headless Compression - [id number] Start: 09-20-2021 Screw Acutrak 2 Full Thread Titanium 65mm Bone Headless Compression - [id number] Start: 09-20-2021 Screw 7.3mm Dari nium 85mm 16mm Bone Cannulated Nonsterile Long Bone - [id number] Start: 09-20-2021 Clinical Notes 03-23-2009 to 09-03-2024 Note Date & Type Note Facility 09-03-2024 Progress note [facility] 09-03-2024 Progress note Note Date/Time September 03, 2024 5:48pm [facility] [address], [address] [place] [address] OFFICE VISIT Date of Service: 09/03/24 MR#: [id number] Acct: [id number] Name: SAL PADILLA Rep #: [id number] : 1970 Provider: EMILY Stovall Age/Sex: 54/M Location: [facility] Status: Signed Intake Vital Signs 08/21/24 10:09 09/03/24 17:36 Height 5 ft 11 in 5 ft 11 in Weight: 192 lb 4 oz BMI 26.8 BP 122/62 H Blood Pressure Location Lt brachial Position Sitting Respiration 16 Pulse 67 Pulse Source NIBP Temp 98.5 F Temp Source Oral Pulse Oximetry (%) 98 Oxygen Delivery Method room air Intake Visit Reasons: ST/SINUS COMPLAINT Chief Complaint: drainage, cough, face pain, congestion Fruit 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 hx of same approx twice per year, treated for sinus infection PFSH Medical History Wears glasses Arthritis High cholesterol Family history of brain aneurysm History of vertigo Former smoker History of pain when walking History of edema History of stress test Hx of cardiac murmur Surgical History Hx laparoscopic cholecystectomy Hx of right knee surgery Social History (Updated 04/07/18 @ 13:57 by Milla DIAZ, EMILY) Smoking Status: Former smoker HPI HPI Chief Complaint: drainage, cough, face pain, congestion Details: SAL PADILLA, is a 54 M who presents to the office today for [facility] for approximately 4-5 days history of progressivelyworsening facial pressure/congestion with purulent postnasal drip/cough and bilateral ear pressure. No complaints of fever, chills, myalgias, fatigue, runnynose, or nausea/vomiting/diarrhea. No complaints of chest pain/shortness of breath/dyspnea on exertion. No close contacts with similar complaints. No other associated symptoms and no other alleviating/aggravating factors. ROS Const Constitutional: No other (as above) Exam Const General: cooperative, healthy appearing and no acute distress Nutritional Appearance: average body habitus Orientation: alert, awake and oriented x3 HENMT Head: normal to inspection Ears: hearing grossly normal bilaterally, external ears normal, TM's normal bilaterally and EAC's normal Nose: external nose normal, nares normal, septum normal and no nasal discharge Face and sinus: normal facial exam, sinuses nontender (Though bilateral maxillary fullness to palpation) and face symmetric Mouth: oral mucosae normal, lip normal, tongue normal and oropharynx normal Throat: posterior oropharynx normal, tonsils normal, uvula midline and postnasal drainage (Purulent) Eyes General: appearance normal, both eyes and all related structures Neck Neck: normal visual inspection, full ROM, no meningeal signs, supple and lymphadenopathy (Bilateral anterior cervical lymph node swelling/tender to palpation) Neck mass: No Thyroid: thyroid normal Chest Chest palpation & inspection: normal inspection of the chest Resp Effort & Inspection: normal respiratory effort and able to speak in complete sentences Auscultation: Bilateral: Clear to Auscultation Cardio Palpation: normal PMI Rate: regular rate Rhythm: regular rhythm Heart Sounds: S1 normal, S2 normal, no gallops, no murmurs and no rubs Pulses: radial pulses present GI Inspection: normal to inspection Skin General: no rashes or lesions noted Neuro General: patient alert, patient awake and patient oriented x3 Cognition: normal cognition Speech: speech normal Psych Appearance: grossly normal Mental Status: mental status grossly normal Mood: congruent mood Affect: normal affect Speech and Movement: speech and movement normal Attitude: cooperative Diagnoses Acute maxillary sinusitis, unspecified J01.00 Assessment and Plan Assessment and Plan (1) Acute maxillary sinusitis, unspecified: Status: Acute Plan: Amoxicillin as prescribed today. Supportive measures as instructed today. Follow-up with PCP in 3 to 5 days should symptoms not improve, sooner should symptoms worsen or any other concerns develop. Patient states acknowledging understanding all the above. Coding Level of Care Code Off vis,new,level 3 Assessment and Plan Assessment and Plan Medications: New amoxicillin 875 mg PO BID 20 tabs 0RF Clinical Quality Measures Falls Risk Screening/Assistive Devices Have you fallen in the past year?: No 09/03/24 1748 <Electronically signed by Jarrod DIAZ> Date _ Jarrod DIAZ Cosigner Signature: Date (if applicable) CC: ~ [place] [facility] Work Phone: 1(924) 634-412104-24-2023 Discharge summary Author Angelo Tucker [facility] July 31, 2022 12:09pm Note Date/Time July 31, 2022 12: 09pm [facility] Physical Therapy [facility] [place] [address] / REHABILITATION SERVICES DISCHARGE SUMMARY MR#: [id number] Acct: [id number] Name: SAL PADILLA Rep #: [id number] : 1970 52 From: Angelo Tucker PT, ATC Referring : Status: REG RCR Insurance: [facility] [employer] It has been my pleasure to treat SAL PADILLA referred by MILLA SOTO, with the diagnosis of R ankle fusion for a total of 22 visit(s). Discharge Date: Please see the following information for a summary of their discharge status. Subjective: I feel like I am still walking weird. R ankle Pain Intensity (Out of 10): 3 % Improvement: 85 Objective/Function: R ankle pain ranges from 3-5/10. R ankle strength: DF= 41, PF= 41 #F. R ankle DF ROM: 20 degrees. Pt is now I with HEP Goal 1:: Decrease R ankle pain x 50% to aid with sleep Goal Progress: Goal Met Goal 2:: Increase R ankle MMT x 5-10 #F to aid with RTW with greater ease Goal Progress: Goal Met Goal 3:: Increase R ankle DF ROM x 5-10 degrees to aid with restoring a more normalized gait pattern Goal Progress: Goal Met Goal 4:: I with HEP Goal Progress: Goal Met Plan: Discharge If there are questions or concerns regarding this patient's physical therapy, please feel free to call me at [phone]. Thank you for the referral of thispatient. Sincerely, Angelo Tucker, PT, ATC Balance/Gait/Functional tests - Balance/Special Test Scores Lower Extremity Functional Score: 37 <Electronically signed by Angelo Tucker PT, ATC> 07/31/22 1207 CC: Dr. Awais Arceo MD; MILLA SOTO ~ [facility] Signed [facility] Work Phone: 1(212) 863-363303-02-2023 NoteHNO ID: [id number] Author: Milla Soto MD Service: ? Author Type: Physician Type: Progress Notes Filed: 06/08/2022 12:32 PM Note Text: June 08, 2022 HPI: Sal Padilla is following up for right ST fusion. Pain Descriptors: Duration: several months Severity: moderate Quality: ache Location: foot and ankle Context: worse with activity and dependence Modifying Factors: improved with rest and elevation Supporting Subjective Information Below: Estimated body mass index is 33.76 kg/m? as calculated from the following: Height as of 09/02/21: 180.3 cm (5' 11). Weight as of 09/21/21: 109.8 kg (242 lb 1 oz). Past Medical History PAST MEDICAL HISTORY Diagnosis Date Abdominal pain, epigastric Acquired cavovarus deformity of foot, right Acute gastritis without mention of hemorrhage Brain aneurysm Cholecystitis Fracture of right foot 2004 History of meniscal tear Hyperlipidemia Surgical History: PAST SURGICAL HISTORY Procedure Laterality Date ARTHROSCOPIC HARDWARE REMOVAL Right 07/2021 REMOVAL HARDWARE FOOT CHOLECYSTECTOMY W/CHOLANGIOGRAPHY 04/05/2009 EGD TRANSORAL BIOPSY SINGLE/MULTIPLE 03/25/2009 nodular/gastritis FOOT SURGERY HX Right 2020 KNEE RIGHT OP SURGERY Right 2019 torn meniscus repair Family History: FAMILY HISTORY Problem Relation Age of Onset No Known Problems Mother Prostate Cancer Father Medications: Current Outpatient Medications Medication Sig VITAMIN D2 1,250 mcg (50,000 unit) capsule take 1 capsule by mouth every week aspirin 325 mg tablet Take 1 tablet by mouth once daily for 28 days. atorvastatin (LIPITOR) 40 mg tablet Take 40 mg by mouth once daily. No current facility-administered medications for this visit. Allergies: Patient has no known allergies. Review Of Systems GENERAL:Negative for malaise, significant weight loss and fever HEENT:Negative for frequent or significant headaches, significant changes in vision or vision problems, significant ear problems or hearing loss, nasal discharge or nose bleeds and sore throat, difficulty swallowing, mouth lesions NECK:Negative for lumps, goiter, pain and significant neck swelling RESPIRATORY: Negative for cough, wheezing and shortness of breath CARDIOVASCULAR: Negative for chest pain, leg swelling and palpitations GASTROINTESTINAL: Negative for abdominal discomfort, blood in stools or black stools and change in bowel habits GENITOURINARY: Negative for dysuria, frequency and incontinence MUSCULOSKELETAL: Negative for joint pain or swelling, back pain, and muscle pain. NEUROLOGIC:Negative for focal numbness or weakness, headaches and dizziness. SKIN:Negative for lesions, rash, and itching. PSYCHIATRIC: Negative for sleep disturbance, mood disorder and recent psychosocial stressors. HEMATOLOGIC/LYMPHATIC/IMMUNOLOGIC:Negative for prolonged bleeding, bruising easily, and swollen nodes. ENDOCRINE: Negative for cold or heat intolerance, polyuria, polydipsia and goiter. Physical Exam: Basic physical examination reveals the patient to be in no acute distress. The patient is alert and oriented x 3 Mood and affect are appropriate. Head is atraumatic, normocephalic. Neck ROM grossly intact. Mucous membranes are moist. Eyes, ears, and nose are normal in appearance. Hearing is grossly intact. Breathing is unlabored with grossly normal chest motion. Limited Upper Extremity Exam: Shoulders with grossly intact ROM and strength, no obvious deformity. Elbows with grossly intact ROM and strength, no obvious deformity. Hand and wrist with grossly intact ROM and strength, no obvious deformity. Focused orthopaedic examination reveals the following: Skin intact without lesions. Well aligned foot Mild swelling Stiff ankle and hindfoot Imaging: XR with healed ST fusion, well aligned ankle Assessment and Plan: Right cavovarus foot Encouraged and ordered more PT Brace on uneven ground Return to clinic: prn X-Ray's at next visit: Yes PCP: Sal Arceo MD [address] [facility] [id number] FELLOW / RESIDENT: No fellow or resident assisted in this office visit. Milla Soto, [facility]03-02-2023 History of Present illness Narrative* Milla Soto MD - 06/08/2022 12:30 PM EST June 08, 2022 HPI: Sal Padilla is following up for right ST fusion. Pain Descriptors: Duration: several months Severity: moderate Quality: ache Location: foot and ankle Context: worse with activity and dependence Modifying Factors: improved with rest and elevation Supporting Subjective Information Below: Estimated body mass index is 33.76 kg/m as calculated from the following: Height as of 09/02/21: 180.3 cm (5' 11). Weight as of 09/21/21: 109.8 kg (242 lb 1 oz). Past Medical History PAST MEDICAL HISTORY Diagnosis Date Abdominal pain, epigastric Acquired cavovarus deformity of foot, right Acute gastritis without mention of hemorrhage Brain aneurysm Cholecystitis Fracture of right foot 2003 History of meniscal tear Hyperlipidemia Surgical History: PAST SURGICAL HISTORY Procedure Laterality Date ARTHROSCOPIC HARDWARE REMOVAL Right 07/2021 REMOVAL HARDWARE FOOT CHOLECYSTECTOMY W/CHOLANGIOGRAPHY 04/05/2009 EGD TRANSORAL BIOPSY SINGLE/MULTIPLE 03/25/2009 nodular/gastritis FOOT SURGERY HX Right 2020 KNEE RIGHT OP SURGERY Right 2019 torn meniscus repair Family History: FAMILY HISTORY Problem Relation Age of Onset No Known Problems Mother Prostate Cancer Father Medications: Current Outpatient Medications Medication Sig VITAMIN D2 1,250 mcg (50,000 unit) capsule take 1 capsule by mouth every week aspirin 325 mg tablet Take 1 tablet by mouth once daily for 28 days. atorvastatin (LIPITOR) 40 mg tablet Take 40 mg by mouth once daily. No current facility-administered medications for this visit. Allergies: Patient has no known allergies. Review Of Systems GENERAL:Negative for malaise, significant weight loss and fever HEENT:Negative for frequent or significant headaches, significant changes in vision or vision problems, significant ear problems or hearing loss, nasal discharge or nose bleeds and sore throat, difficulty swallowing, mouth lesions NECK:Negative for lumps, goiter, pain and significant neck swelling RESPIRATORY: Negative for cough, wheezing and shortness of breath CARDIOVASCULAR: Negative for chest pain, leg swelling and palpitations GASTROINTESTINAL: Negative for abdominal discomfort, blood in stools or black stools and change in bowel habits GENITOURINARY: Negative for dysuria, frequency and incontinence MUSCULOSKELETAL: Negative for joint pain or swelling, back pain, and muscle pain. NEUROLOGIC:Negative for focal numbness or weakness, headaches and dizziness. SKIN:Negative for lesions, rash, and itching. PSYCHIATRIC: Negative for sleep disturbance, mood disorder and recent psychosocial stressors. HEMATOLOGIC/LYMPHATIC/IMMUNOLOGIC:Negative for prolonged bleeding, bruising easily, and swollen nodes. ENDOCRINE: Negative for cold or heat intolerance, polyuria, polydipsia and goiter. Physical Exam: Basic physical examination reveals the patient to be in no acute distress. The patient is alert and oriented x 3 Mood and affect are appropriate. Head is atraumatic, normocephalic. Neck ROM grossly intact. Mucous membranes are moist. Eyes, ears, and nose are normal in appearance. Hearing is grossly intact. Breathing is unlabored with grossly normal chest motion. Limited Upper Extremity Exam: Shoulders with grossly intact ROM and strength, no obvious deformity. Elbows with grossly intact ROM and strength, no obvious deformity. Hand and wrist with grossly intact ROM and strength, no obvious deformity. Focused orthopaedic examination reveals the following: Skin intact without lesions. Well aligned foot Mild swelling Stiff ankle and hindfoot Imaging: XR with healed ST fusion, well aligned ankle Assessment and Plan: Right cavovarus foot Encouraged and ordered more PT Brace on uneven ground Return to clinic: prn X-Ray's at next visit: Yes PCP: Sal Arceo MD [address] [place] [id number] FELLOW / RESIDENT: No fellow or resident assisted in this office visit. Milla Soto MD documented [facility] encounter[facility]03-02-[facility]23 NoteHNO ID: [id number] Author: RT Nena(R) Service: ? Author Type: Technologist Type: Progress Notes Filed: 06/08/2022 9:40 AM Note Text: Radiology Service Progress Note PATIENT NAME: Sal Padilla DATE OF SERVICE: June 08, 2022 TIME: 9:39 AM PATIENT IDENTITY VERIFICATION COMPLETED USING TWO (2) IDENTIFIERS: Name and Date of confirmed by patient verbally. FALL SCREENING: Has the patient had 2 falls in the last year or 1 fall with injury or currently using an Ambulatory Assistive Device (Walker, Cane, Wheelchair, Crutches, etc.)? No PATIENT GENDER DATA: Male PATIENT RELEVANT IMPLANT DATA REVIEWED: Not Applicable RADIOLOGY DEPARTMENT: General X-ray: Exam(s) Completed: Lower Extremity X-Ray(s): Ankle, Right PERIPHERAL IV DATA: Not applicable SIGNED BY: RT Nena(R) June 08, 2022 9:39 [facility]03-02-2023 History of Present illness Narrative* Abisai Cheek RT(R) - 06/08/2022 9:30 AM EST Radiology Service Progress Note PATIENT NAME: Sal Padilla DATE OF SERVICE: June 08, 2022 TIME: 9:39 AM PATIENT IDENTITY VERIFICATION COMPLETED USING TWO (2) IDENTIFIERS: Name and Date of confirmedby patient verbally. FALL SCREENING: Has the patient had 2 falls in the last year or 1 fall with injury or currently using an Ambulatory Assistive Device (Walker, Cane, Wheelchair, Crutches, etc.)? No PATIENT GENDER DATA: Male PATIENT RELEVANT IMPLANT DATA REVIEWED: Not Applicable RADIOLOGY DEPARTMENT: General X-ray: Exam(s) Completed: Lower Extremity X- Ray(s): Ankle, Right PERIPHERAL IV DATA: Not applicable SIGNED BY: RT Nena(R) June 08, 2022 9:39 AM documented in this encounterWilson Health11-28-2022 NoteHNO ID: [id number] Author: Milla Soto MD Service: ? Author Type: Physician Type: Progress Notes Filed: 03/06/2022 10:25 AM Note Text: March 06, 2022 HPI: Sal Padilla is following up for revision right cavovarus foot recon. Not using boot. Pain Descriptors: Duration: several months Severity: moderate Quality: ache Location: foot and ankle Context: worse with activity and dependence Modifying Factors: improved with rest and elevation Supporting Subjective Information Below: Estimated body mass index is 33.76 kg/m? as calculated from the following: Height as of 09/02/21: 180.3 cm (5' 11). Weight as of 09/21/21: 109.8 kg (242 lb 1 oz). Past Medical History PAST MEDICAL HISTORY Diagnosis Date Abdominal pain, epigastric Acquired cavovarus deformity of foot, right Acute gastritis without mention of hemorrhage Brain aneurysm Cholecystitis Fracture of right foot 2004 History of meniscal tear Hyperlipidemia Surgical History: PAST SURGICAL HISTORY Procedure Laterality Date ARTHROSCOPIC HARDWARE REMOVAL Right 07/2021 REMOVAL HARDWARE FOOT CHOLECYSTECTOMY W/CHOLANGIOGRAPHY 04/05/2009 EGD TRANSORAL BIOPSY SINGLE/MULTIPLE 03/25/2009 nodular/gastritis FOOT SURGERY HX Right 2020 KNEE RIGHT OP SURGERY Right 2019 torn meniscus repair Family History: FAMILY HISTORY Problem Relation Age of Onset No Known Problems Mother Prostate Cancer Father Medications: Current Outpatient Medications Medication Sig VITAMIN D2 1,250 mcg (50,000 unit) capsule take 1 capsule by mouth every week atorvastatin (LIPITOR) 40 mg tablet Take 40 mg by mouth once daily. mupirocin (BACTROBAN) 2 % ointment Apply to affected area three times daily. (Patient not taking: Reported on 03/06/2022) aspirin 325 mg tablet Take 1 tablet by mouth once daily for 28 days. No current facility-administered medications for this visit. Allergies: Patient has no known allergies. Review Of Systems GENERAL:Negative for malaise, significant weight loss and fever HEENT:Negative for frequent or significant headaches, significant changes in vision or vision problems, significant ear problems or hearing loss, nasal discharge or nose bleeds and sore throat, difficulty swallowing, mouth lesions NECK:Negative for lumps, goiter, pain and significant neck swelling RESPIRATORY: Negative for cough, wheezing and shortness of breath CARDIOVASCULAR: Negative for chest pain, leg swelling and palpitations GASTROINTESTINAL: Negative for abdominal discomfort, blood in stools or black stools and change in bowel habits GENITOURINARY: Negative for dysuria, frequency and incontinence MUSCULOSKELETAL: Negative for joint pain or swelling, back pain, and muscle pain. NEUROLOGIC:Negative for focal numbness or weakness, headaches and dizziness. SKIN:Negative for lesions, rash, and itching. PSYCHIATRIC: Negative for sleep disturbance, mood disorder and recent psychosocial stressors. HEMATOLOGIC/LYMPHATIC/IMMUNOLOGIC:Negative for prolonged bleeding, bruising easily, and swollen nodes. ENDOCRINE: Negative for cold or heat intolerance, polyuria, polydipsia and goiter. Physical Exam: Basic physical examination reveals the patient to be in no acute distress. The patient is alert and oriented x 3 Mood and affect are appropriate. Head is atraumatic, normocephalic. Neck ROM grossly intact. Mucous membranes are moist. Eyes, ears, and nose are normal in appearance. Hearing is grossly intact. Breathing is unlabored with grossly normal chest motion. Limited Upper Extremity Exam: Shoulders with grossly intact ROM and strength, no obvious deformity. Elbows with grossly intact ROM and strength, no obvious deformity. Hand and wrist with grossly intact ROM and strength, no obvious deformity. Focused orthopaedic examination reveals the following: Skin intact without lesions. Moderate swelling Good alignment Stable ankl Imaging: XR with healed st fusion Assessment and Plan: right cavovarus foot Continue PT/HEP Return to clinic: 3 mos X-Ray's at next visit: Yes PCP: Sal Arceo MD [address] [place] [phone] FELLOW / RESIDENT: No fellow or resident assisted in this office visit. Milla Soto, [facility]11-28-2022 NoteHNO ID: [id number] Author: RT Nena(R) Service: ? Author Type: Technologist Type: Progress Notes Filed: 03/06/2022 11:19 AM Note Text: Radiology Service Progress Note PATIENT NAME: Sal Padilla DATE OF SERVICE: March 06, 2022 TIME: 11:18 AM PATIENT IDENTITY VERIFICATION COMPLETED USING TWO (2) IDENTIFIERS: Name and Date of confirmed by patient verbally. FALL SCREENING: Has the patient had 2 falls in the last year or 1 fall with injury or currently using an Ambulatory Assistive Device (Walker, Cane, Wheelchair, Crutches, etc.)? No PATIENT GENDER DATA: Male PATIENT RELEVANT IMPLANT DATA REVIEWED: Not Applicable RADIOLOGY DEPARTMENT: General X-ray: Exam(s) Completed: Lower Extremity X-Ray(s): Ankle, Right and Foot, Right PERIPHERAL IV DATA: Not applicable SIGNED BY: RT Nena(R) March 06, 2022 11:18 [facility]11-28-2022 History of Present illness Narrative* Milla Soto MD - 03/06/2022 10:19 AM EST March 06, 2022 HPI: Sal Padilla is following up for revision right cavovarus foot recon. Not using boot. Pain Descriptors: Duration: several months Severity: moderate Quality: ache Location: foot and ankle Context: worse with activity and dependence Modifying Factors: improved with rest and elevation Supporting Subjective Information Below: Estimated body mass index is 33.76 kg/m as calculated from the following: Height as of 09/02/21: 180.3 cm (5' 11). Weight as of 09/21/21: 109.8 kg (242 lb 1 oz). Past Medical History PAST MEDICAL HISTORY Diagnosis Date Abdominal pain, epigastric Acquired cavovarus deformity of foot, right Acute gastritis without mention of hemorrhage Brain aneurysm Cholecystitis Fracture of right foot 2003 History of meniscal tear Hyperlipidemia Surgical History: PAST SURGICAL HISTORY Procedure Laterality Date ARTHROSCOPIC HARDWARE REMOVAL Right 07/2021 REMOVAL HARDWARE FOOT CHOLECYSTECTOMY W/CHOLANGIOGRAPHY 04/05/2009 EGD TRANSORAL BIOPSY SINGLE/MULTIPLE 03/25/2009 nodular/gastritis FOOT SURGERY HX Right 2020 KNEE RIGHT OP SURGERY Right 2020 torn meniscus repair Family History: FAMILY HISTORY Problem Relation Age of Onset No Known Problems Mother Prostate Cancer Father Medications: Current Outpatient Medications Medication Sig VITAMIN D2 1,250 mcg (50,000 unit) capsule take 1 capsule by mouth every week atorvastatin (LIPITOR) 40 mg tablet Take 40 mg by mouth once daily. mupirocin (BACTROBAN) 2 % ointment Apply to affected area three times daily. (Patient not taking: Reported on 03/06/2022) aspirin 325 mg tablet Take 1 tablet by mouth once daily for 28 days. No current facility-administered medications for this visit. Allergies: Patient has no known allergies. Review Of Systems GENERAL:Negative for malaise, significant weight loss and fever HEENT:Negative for frequent or significant headaches, significant changes in vision or vision problems, significant ear problems or hearing loss, nasal discharge or nose bleeds and sore throat, difficulty swallowing, mouth lesions NECK:Negative for lumps, goiter, pain and significant neck swelling RESPIRATORY: Negative for cough, wheezing and shortness of breath CARDIOVASCULAR: Negative for chest pain, leg swelling and palpitations GASTROINTESTINAL: Negative for abdominal discomfort, blood in stools or black stools and change in bowel habits GENITOURINARY: Negative for dysuria, frequency and incontinence MUSCULOSKELETAL: Negative for joint pain or swelling, back pain, and muscle pain. NEUROLOGIC:Negative for focal numbness or weakness, headaches and dizziness. SKIN:Negative for lesions, rash, and itching. PSYCHIATRIC: Negative for sleep disturbance, mood disorder and recent psychosocial stressors. HEMATOLOGIC/LYMPHATIC/IMMUNOLOGIC:Negative for prolonged bleeding, bruising easily, and swollen nodes. ENDOCRINE: Negative for cold or heat intolerance, polyuria, polydipsia and goiter. Physical Exam: Basic physical examination reveals the patient to be in no acute distress. The patient is alert and oriented x 3 Mood and affect are appropriate. Head is atraumatic, normocephalic. Neck ROM grossly intact. Mucous membranes are moist. Eyes, ears, and nose are normal in appearance. Hearing is grossly intact. Breathing is unlabored with grossly normal chest motion. Limited Upper Extremity Exam: Shoulders with grossly intact ROM and strength, no obvious deformity. Elbows with grossly intact ROM and strength, no obvious deformity. Hand and wrist with grossly intact ROM and strength, no obvious deformity. Focused orthopaedic examination reveals the following: Skin intact without lesions. Moderate swelling Good alignment Stable ankl Imaging: XR with healed st fusion Assessment and Plan: right cavovarus foot Continue PT/HEP Return to clinic: 3 mos X-Ray's at next visit: Yes PCP: Sal Arceo MD [address] [place] [id number] FELLOW / RESIDENT: No fellow or resident assisted in this office visit. Milla Soto MD documented in this encounterWilson Health11-28-2022 History of Present illness Narrative* Abisai Cheek, RT(R) - 03/06/2022 10:00 AM EST Radiology Service Progress Note PATIENT NAME: Sal Padilla DATE OF SERVICE: March 06, 2022 TIME: 11:18 AM PATIENT IDENTITY VERIFICATION COMPLETED USING TWO (2) IDENTIFIERS: Name and Date of confirmedby patient verbally. FALL SCREENING: Has the patient had 2 falls in the last year or 1 fall with injury or currently using an Ambulatory Assistive Device (Walker, Cane, Wheelchair, Crutches, etc.)? No PATIENT GENDER DATA: Male PATIENT RELEVANT IMPLANT DATA REVIEWED: Not Applicable RADIOLOGY DEPARTMENT: General X-ray: Exam(s) Completed: Lower Extremity X- Ray(s): Ankle, Right and Foot, Right PERIPHERAL IV DATA: Not applicable SIGNED BY: RT Nena(R) March 06, 2022 11:18 AM documented in this encounterWilson Health09-29-2022 NoteHNO ID: [id number] Author: Milla Soto MD Service: ? Author Type: Physician Type: Progress Notes Filed: 01/05/2022 12:23 PM Note Text: January 05, 2022 HPI: Sal Padilla is following up for ST fusion Pain Descriptors: Duration: few months Severity: moderate Quality: ache Location: foot and ankle Context: worse with activity and dependence Modifying Factors: improved with rest and elevation Supporting Subjective Information Below: Estimated body mass index is 33.76 kg/m? as calculated from the following: Height as of 09/02/21: 180.3 cm (5' 11). Weight as of 09/21/21: 109.8 kg (242 lb 1 oz). Past Medical History PAST MEDICAL HISTORY Diagnosis Date Abdominal pain, epigastric Acquired cavovarus deformity of foot, right Acute gastritis without mention of hemorrhage Brain aneurysm Cholecystitis Fracture of right foot 2004 History of meniscal tear Hyperlipidemia Surgical History: PAST SURGICAL HISTORY Procedure Laterality Date ARTHROSCOPIC HARDWARE REMOVAL Right 07/2021 REMOVAL HARDWARE FOOT CHOLECYSTECTOMY W/CHOLANGIOGRAPHY 04/05/2009 EGD TRANSORAL BIOPSY SINGLE/MULTIPLE 03/25/2009 nodular/gastritis FOOT SURGERY HX Right 2020 KNEE RIGHT OP SURGERY Right 2020 torn meniscus repair Family History: FAMILY HISTORY Problem Relation Age of Onset No Known Problems Mother Prostate Cancer Father Medications: Current Outpatient Medications Medication Sig mupirocin (BACTROBAN) 2 % ointment Apply to affected area three times daily. ergocalciferol 50,000 unit capsule (VITAMIN D2, DRISDOL) Take 1 capsule by mouth one time a week. aspirin 325 mg tablet Take 1 tablet by mouth once daily for 28 days. atorvastatin (LIPITOR) 40 mg tablet Take 40 mg by mouth once daily. No current facility-administered medications for this visit. Allergies: Patient has no known allergies. Review Of Systems GENERAL:Negative for malaise, significant weight loss and fever HEENT:Negative for frequent or significant headaches, significant changes in vision or vision problems, significant ear problems or hearing loss, nasal discharge or nose bleeds and sore throat, difficulty swallowing, mouth lesions NECK:Negative for lumps, goiter, pain and significant neck swelling RESPIRATORY: Negative for cough, wheezing and shortness of breath CARDIOVASCULAR: Negative for chest pain, leg swelling and palpitations GASTROINTESTINAL: Negative for abdominal discomfort, blood in stools or black stools and change in bowel habits GENITOURINARY: Negative for dysuria, frequency and incontinence MUSCULOSKELETAL: Negative for joint pain or swelling, back pain, and muscle pain. NEUROLOGIC:Negative for focal numbness or weakness, headaches and dizziness. SKIN:Negative for lesions, rash, and itching. PSYCHIATRIC: Negative for sleep disturbance, mood disorder and recent psychosocial stressors. HEMATOLOGIC/LYMPHATIC/IMMUNOLOGIC:Negative for prolonged bleeding, bruising easily, and swollen nodes. ENDOCRINE: Negative for cold or heat intolerance, polyuria, polydipsia and goiter. Physical Exam: Basic physical examination reveals the patient to be in no acute distress. The patient is alert and oriented x 3 Mood and affect are appropriate. Head is atraumatic, normocephalic. Neck ROM grossly intact. Mucous membranes are moist. Eyes, ears, and nose are normal in appearance. Hearing is grossly intact. Breathing is unlabored with grossly normal chest motion. Limited Upper Extremity Exam: Shoulders with grossly intact ROM and strength, no obvious deformity. Elbows with grossly intact ROM and strength, no obvious deformity. Hand and wrist with grossly intact ROM and strength, no obvious deformity. Focused orthopaedic examination reveals the following: Skin intact without lesions. Healed incisions Moderate stiffness Stable ankle Imaging: XR with healed ST fusion Assessment and Plan: Right subtalar fusion for cavovarus foot deformity, ankle instability Will transition out of boot gradually after 2-3 weeks WBAT in boot Start PT Return to clinic: 6-8 weeks X-Ray's at next visit: Yes PCP: Sal Arceo MD [address] [place], [place] [address] [phone] FELLOW / RESIDENT: No fellow or resident assisted in this office visit. Milla Soto, [facility]09-29-2022 NoteHNO ID: [id number] Author: RT Nena(R) Service: ? Author Type: Technologist Type: Progress Notes Filed: 01/05/2022 10:29 AM Note Text: Radiology Service Progress Note PATIENT NAME: Sal Padilla DATE OF SERVICE: January 05, 2022 TIME: 10:28 AM PATIENT IDENTITY VERIFICATION COMPLETED USING TWO (2) IDENTIFIERS: Name and Date of confirmed by patient verbally. FALL SCREENING: Has the patient had 2 falls in the last year or 1 fall with injury or currently using an Ambulatory Assistive Device (Walker, Cane, Wheelchair, Crutches, etc.)? No PATIENT GENDER DATA: Male PATIENT RELEVANT IMPLANT DATA REVIEWED: Not Applicable RADIOLOGY DEPARTMENT: General X-ray: Exam(s) Completed: Lower Extremity X-Ray(s): Foot, Right PERIPHERAL IV DATA: Not applicable SIGNED BY: RT Nena(R) January 05, 2022 10:28 [facility]09-29-2022 History of Present illness Narrative* Milla Soto MD - 01/05/2022 10:58 AM EDT January 05, 2022 HPI: Sal Padilla is following up for ST fusion Pain Descriptors: Duration: few months Severity: moderate Quality: ache Location: foot and ankle Context: worse with activity and dependence Modifying Factors: improved with rest and elevation Supporting Subjective Information Below: Estimated body mass index is 33.76 kg/m as calculated from the following: Height as of 09/02/21: 180.3 cm (5' 11). Weight as of 09/21/21: 109.8 kg (242 lb 1 oz). Past Medical History PAST MEDICAL HISTORY Diagnosis Date Abdominal pain, epigastric Acquired cavovarus deformity of foot, right Acute gastritis without mention of hemorrhage Brain aneurysm Cholecystitis Fracture of right foot 2004 History of meniscal tear Hyperlipidemia Surgical History: PAST SURGICAL HISTORY Procedure Laterality Date ARTHROSCOPIC HARDWARE REMOVAL Right 07/2021 REMOVAL HARDWARE FOOT CHOLECYSTECTOMY W/CHOLANGIOGRAPHY 04/05/2009 EGD TRANSORAL BIOPSY SINGLE/MULTIPLE 03/25/2009 nodular/gastritis FOOT SURGERY HX Right 2020 KNEE RIGHT OP SURGERY Right 2019 torn meniscus repair Family History: FAMILY HISTORY Problem Relation Age of Onset No Known Problems Mother Prostate Cancer Father Medications: Current Outpatient Medications Medication Sig mupirocin (BACTROBAN) 2 % ointment Apply to affected area three times daily. ergocalciferol 50,000 unit capsule (VITAMIN D2, DRISDOL) Take 1 capsule by mouth one time a week. aspirin 325 mg tablet Take 1 tablet by mouth once daily for 28 days. atorvastatin (LIPITOR) 40 mg tablet Take 40 mg by mouth once daily. No current facility-administered medications for this visit. Allergies: Patient has no known allergies. Review Of Systems GENERAL:Negative for malaise, significant weight loss and fever HEENT:Negative for frequent or significant headaches, significant changes in vision or vision problems, significant ear problems or hearing loss, nasal discharge or nose bleeds and sore throat, difficulty swallowing, mouth lesions NECK:Negative for lumps, goiter, pain and significant neck swelling RESPIRATORY: Negative for cough, wheezing and shortness of breath CARDIOVASCULAR: Negative for chest pain, leg swelling and palpitations GASTROINTESTINAL: Negative for abdominal discomfort, blood in stools or black stools and change in bowel habits GENITOURINARY: Negative for dysuria, frequency and incontinence MUSCULOSKELETAL: Negative for joint pain or swelling, back pain, and muscle pain. NEUROLOGIC:Negative for focal numbness or weakness, headaches and dizziness. SKIN:Negative for lesions, rash, and itching. PSYCHIATRIC: Negative for sleep disturbance, mood disorder and recent psychosocial stressors. HEMATOLOGIC/LYMPHATIC/IMMUNOLOGIC:Negative for prolonged bleeding, bruising easily, and swollen nodes. ENDOCRINE: Negative for cold or heat intolerance, polyuria, polydipsia and goiter. Physical Exam: Basic physical examination reveals the patient to be in no acute distress. The patient is alert and oriented x 3 Mood and affect are appropriate. Head is atraumatic, normocephalic. Neck ROM grossly intact. Mucous membranes are moist. Eyes, ears, and nose are normal in appearance. Hearing is grossly intact. Breathing is unlabored with grossly normal chest motion. Limited Upper Extremity Exam: Shoulders with grossly intact ROM and strength, no obvious deformity. Elbows with grossly intact ROM and strength, no obvious deformity. Hand and wrist with grossly intact ROM and strength, no obvious deformity. Focused orthopaedic examination reveals the following: Skin intact without lesions. Healed incisions Moderate stiffness Stable ankle Imaging: XR with healed ST fusion Assessment and Plan: Right subtalar fusion for cavovarus foot deformity, ankle instability Will transition out of boot gradually after 2-3 weeks WBAT in boot Start PT Return to clinic: 6-8 weeks X-Ray's at next visit: Yes PCP: Sal Arceo [facility] [address] [facility] [id number] FELLOW / RESIDENT: No fellow or resident assisted in this office visit. Milla Soto MD documented in this encounterWilson Health09-29-2022 History of Present illness Narrative* Abisai Cheek RT(R) - 01/05/2022 10:10 AM EDT Radiology Service Progress Note PATIENT NAME: Sal Padilla DATE OF SERVICE: January 05, 2022 TIME: 10:28 AM PATIENT IDENTITY VERIFICATION COMPLETED USING TWO (2) IDENTIFIERS: Name and Date of confirmedby patient verbally. FALL SCREENING: Has the patient had 2 falls in the last year or 1 fall with injury or currently using an Ambulatory Assistive Device (Walker, Cane, Wheelchair, Crutches, etc.)? No PATIENT GENDER DATA: Male PATIENT RELEVANT IMPLANT DATA REVIEWED: Not Applicable RADIOLOGY DEPARTMENT: General X-ray: Exam(s) Completed: Lower Extremity X- Ray(s): Foot, Right PERIPHERAL IV DATA: Not applicable SIGNED BY: RT Nena(R) January 05, 2022 10:28 AM documented in this encounterWilson Health08-18-2022 NoteHNO ID: [id number] Author: Milla Soto MD Service: ? Author Type: Physician Type: Progress Notes Filed: 11/24/2021 6:05 PM Note Text: Incisions healed Superficial dry eschar lateral Alignment intact XR with healing Plan for boot, ROM, partial WB x 3 then WBAT x 3 FU 6 for PT Milla Soto, [facility]08-18-2022 History of Present illness Narrative* Milla Soto MD - 11/24/2021 6:03 PM EDT Incisions healed Superficial dry eschar lateral Alignment intact XR with healing Plan for boot, ROM, partial WB x 3 then WBAT x 3 FU 6 for PT Milla Soto MD documented in this encounterWilson Health08-18-2022 NoteHNO ID: [id number] Author: RT Nena(R) Service: ? Author Type: Technologist Type: Progress Notes Filed: 11/24/2021 2:17 PM Note Text: Radiology Service Progress Note PATIENT NAME: Sal Padilla DATE OF SERVICE: November 24, 2021 TIME: 2:16 PM PATIENT IDENTITY VERIFICATION COMPLETED USING TWO (2) IDENTIFIERS: Name and Date of confirmed by patient verbally. FALL SCREENING: Has the patient had 2 falls in the last year or 1 fall with injury or currently using an Ambulatory Assistive Device (Walker, Cane, Wheelchair, Crutches, etc.)? No PATIENT GENDER DATA: Male PATIENT RELEVANT IMPLANT DATA REVIEWED: Not Applicable RADIOLOGY DEPARTMENT: General X-ray: Exam(s) Completed: Lower Extremity X-Ray(s): Ankle, Right and Foot, Right PERIPHERAL IV DATA: Not applicable SIGNED BY: RT Nena(R) November 24, 2021 2:16 [facility] History of Present illness Narrative* Abisai Cheek RT(R) - 11/24/2021 12:55 PM EDT Radiology Service Progress Note PATIENT NAME: Sal Padilla DATE OF SERVICE: November 24, 2021 TIME: 2:16 PM PATIENT IDENTITY VERIFICATION COMPLETED USING TWO (2) IDENTIFIERS: Name and Date of confirmedby patient verbally. FALL SCREENING: Has the patient had 2 falls in the last year or 1 fall with injury or currently using an Ambulatory Assistive Device (Walker, Cane, Wheelchair, Crutches, etc.)? No PATIENT GENDER DATA: Male PATIENT RELEVANT IMPLANT DATA REVIEWED: Not Applicable RADIOLOGY DEPARTMENT: General X-ray: Exam(s) Completed: Lower Extremity X- Ray(s): Ankle, Right and Foot, Right PERIPHERAL IV DATA: Not applicable SIGNED BY: RT Nena(R) November 24, 2021 2:16 PM documented in this encounterWilson Health08-18-2022 NoteHNO ID: [id number] Author: COLE Coker Service: ? Author Type: Clinical Operations Project Manager Type: Progress Notes Filed: 11/25/2021 8:06 AM Note Text: PT ASSESSMENT - CASTING ROOM [place] presents for Application of boot. Applied high fracture walker and nightsplint to Right ankle Patient has been instructed in Care of boot.. COLE Coker Beeper:[facility]08-17-2022 NoteHNO ID: [id number] Author: Julio Kumari PA-C Service: ? Author Type: Physician Piano Case And Bench Assembler Type: Progress Notes Filed: 11/23/2021 3:54 PM Note Text: [facility]08-17-2022 History of Present illness Narrative* Julio Kumari PA-C - 11/23/2021 3:54 PM EDT Images from the original note were not included. DEPARTMENT OF ORTHOPAEDICS documented in this encounterWilson Health07-21-2022 NoteHNO ID: [id number] Author: Milla Soto MD Service: ? Author Type: Physician Type: Progress Notes Filed: 10/27/2021 1:37 PM Note Text: Incisions CDI Improved swelling Good alignment XR with good healing SLNWBC fu 3 weeks with Qing Alvarez for SLNWBC Then fu with me 3 weeks later for XR Milla Soto [facility]07-21-2022 NoteHNO ID: [id number] Author: COLE Coker Service: ? Author Type: Clinical Operations Project Manager Type: Progress Notes Filed: 10/27/2021 12:05 PM Note Text: PT ASSESSMENT - CASTING ROOM [place] presents for Application of cast. Applied short cast: to Right leg Patient has been instructed in Care of cast.. COLE Coker Beeper:[facility]07-21-2022 History of Present illness Narrative * Milla Soto MD - 10/27/2021 1:36 PM EDT Incisions CDI Improved swelling Good alignment XR with good healing SLNWBC fu 3 weeks with Qing Alvarez for SLNWBC Then fu with me 3 weeks later for XR Milla Soto MD * COLE Coker - 10/27/2021 12:05 PM EDT PT ASSESSMENT - CASTING ROOM Sal presents for Application of cast. Applied short cast: to Right leg Patient has been instructed in Care of cast.. COLE Coker Beeper: documented in this encounterWilson Health07-21-2022 NoteHNO ID: [id number] Author: RT Nena(R) Service: ? Author Type: Technologist Type: Progress Notes Filed: 10/27/2021 11:40 AM Note Text: Radiology Service Progress Note PATIENT NAME: Sal Padilla DATE OF SERVICE: October 27, 2021 TIME: 11:39 AM PATIENT IDENTITY VERIFICATION COMPLETED USING TWO (2) IDENTIFIERS: Name and Date of confirmed by patient verbally. FALL SCREENING: Has the patient had 2 falls in the last year or 1 fall with injury or currently using an Ambulatory Assistive Device (Walker, Cane, Wheelchair, Crutches, etc.)? No PATIENT GENDER DATA: Male PATIENT RELEVANT IMPLANT DATA REVIEWED: Not Applicable RADIOLOGY DEPARTMENT: General X-ray: Exam(s) Completed: Lower Extremity X-Ray(s): Ankle, Right and Foot, Right PERIPHERAL IV DATA: Not applicable SIGNED BY: RT Nena(R) October 27, 2021 11:39 [facility]07-21-2022 History of Present illness Narrative* Abisai Cheek RT(R) - 10/27/2021 11:00 AM EDT Radiology Service Progress Note PATIENT NAME: Sal Padilla DATE OF SERVICE: October 27, 2021 TIME: 11:39 AM PATIENT IDENTITY VERIFICATION COMPLETED USING TWO (2) IDENTIFIERS: Name and Date of confirmedby patient verbally. FALL SCREENING: Has the patient had 2 falls in the last year or 1 fall with injury or currently using an Ambulatory Assistive Device (Walker, Cane, Wheelchair, Crutches, etc.)? No PATIENT GENDER DATA: Male PATIENT RELEVANT IMPLANT DATA REVIEWED: Not Applicable RADIOLOGY DEPARTMENT: General X-ray: Exam(s) Completed: Lower Extremity X- Ray(s): Ankle, Right and Foot, Right PERIPHERAL IV DATA: Not applicable SIGNED BY: RT Nena(R) October 27, 2021 11:39 AM documented in this encounterWilson Health07-07-2022 NoteHNO ID: [id number] Author: Milla Soto MD Service: ? Author Type: Physician Type: Progress Notes Filed: 10/13/2021 11:47 AM Note Text: Incision CDI Mild swelling Sutures removed SLNWBC FU 2 weeks with X[facility] History of Present illness Narrative* Milla Soto MD - 10/13/2021 11:47 AM EDT Incision CDI Mild swelling Sutures removed SLNWBC FU 2 weeks with XR Milla Soto MD documented in this encounterWilson Health06-24-2022 Miscellaneous Notes* Telephone Encounter - Jeromy Bell - 09/30/2021 2:26 PM EDT Called patient per Lois Clay for an update on post-op rash. Left a nonspecific voicemail asking patient to return my call for an update and provided office phone number. documented in this encounterWilson Health06-23-2022 Miscellaneous Notes* Telephone Encounter - Maggi Philippe RN - 09/29/2021 11:14 AM EDT DOS: 09/20/2021 Type of Surgery: R subtalar arthrodesis and ankle ligament repair Surgeon : Charles Catheter site: Popliteal PNC Solution: Ropivacaine 0.2% Rates: Phone number: [phone] (pt), (Qing - mom) Discharge date: 09/22/202109/29 1115- Call placed to both phone numbers provided with no answer at this time. 1242- Spoke with pt who states rash is doing much better at this time. Denies any further questions or concerns. Sign off. * Telephone Encounter - Maggi Philippe RN - 09/28/2021 10:03 AM EDT DOS: 09/20/2021 Type of Surgery: R subtalar arthrodesis and ankle ligament repair Surgeon : Charles Catheter site: Popliteal PNC Solution: Ropivacaine 0.2% Rates: Phone number: [phone] (pt), (Qing - mom) Discharge date: 09/22/2021 1000- call placed to pt at this time with no answer. * Telephone Encounter - Maggi Philippe RN - 09/27/2021 2:15 PM EDT DOS: 09/20/2021 Type of Surgery: R subtalar arthrodesis and ankle ligament repair Surgeon : Charles Catheter site: Popliteal PNC Solution: Ropivacaine 0.2% Rates: Phone number: [phone] (pt), (Qing - mom) Discharge date: 09/22/202109/27 Pt states nerve catheter was removed Amando without complications. Pt denies any signs or symptoms of infection and pain remains controlled. Pt did not look for black tip at end of PNC after removal,but states PNC was removed easily. Pt reporting red itching rash on BLE and lower back. States he has took oral benadryl with little effect, and is in office now to get cast applied. Plans to have LIP look at it. Will follow up tomorrow with phone call. Encouraged pt to call apms with any further questions or concerns. * Telephone Encounter - Siva Mcdermott PA-C - 09/22/2021 11:20 AM EDT DOS: 09/20/2021 Type of Surgery: R subtalar arthrodesis and ankle ligament repair Surgeon : Charles Catheter site: Popliteal PNC Solution: Ropivacaine 0.2% Rates: 11/18/09/07 Phone number: [phone] (pt), (Qing - mom) Discharge date: 09/22/2021 Switched to Ambit pump, educated on its use, discussed LA/SE and s/s that should be reported, patient/famiyl verbalized understanding. Will follow up with phone call. documented in this encounterWilson Health06-21-2022 NoteHNO ID: [id number] Author: Ofelia Clay PA-C Service: ? Author Type: Physician Piano Case And Bench Assembler Type: Progress Notes Filed: 09/27/2021 5:32 PM Note Text: Milla Soto [address] [facility] [address] Specialty Problems Ortho Problems Right ankle pain Acquired cavovarus deformity of foot, right Foot pain CC: Established Patient, Follow Up, and Post Op of the Right Ankle Injury/Surgery Date: 09/20/2021 Procedure: 1.?Right?subtalar arthrodesis. 2.?Right iliac?crest bone graft small. 3. Right achilles tendon lengthening.? 4. Right ankle lateral ligament reconstruction. Sal Padilla is a 51 year old male that returns today for follow up of right foot surgery by Dr. Soto. He is here for his first postop visit. His main complaint is an itchy rash located primarily along his buttocks and upper posterior thigh region. Some mild spots along the posterior upper arm but no other systemic locations. He is unsure of the cause of this rash and notes the only medication that he is taking now that he has not had before is aspirin daily. He has been in a sedentary position with the surfaces in contact with bedding for the last several days. He is unsure of any changes in laundry detergent, etc. He has tried Benadryl but not regularly. He denies any shortness of breath or difficulty breathing with the rash. ASSESSMENT: (M21.6X1) Acquired cavovarus deformity of foot, right (primary encounter diagnosis) (Z09) Postop check PLAN: Discussed options with the patient and recommended: 1. Placement in a short leg nonweightbearing bivalved cast 2. Will attempt to control the rash with showering, positional changes, and Benadryl regularly. If he does not improve we may consider switching his aspirin to Lovenox 40 mg once daily subcu. He will let me know how things are going over the next several days and if things worsen we will try medication change 3. Patient will follow up in [address] Soto as scheduled Detailed instructions were reviewed with the patient and all questions were answered in detail. Patient voiced understanding and compliance with the above plan. We discussed emergent need to return to the express care or go to the emergency department. We discussed red flags associated with this condition and emergent treatment if they present. I spent a total of 20 minutes on the date of the service which included preparing to see the patient, [id number] patient care, completing clinical documentation, obtaining and/or reviewing separately obtained history, performing a medically appropriate examination, counseling and educating the patient/family/caregiver, communicating results to the patient/family/caregiver and care coordination (not separately reported). Review of Systems PHYSICAL FINDINGS: There were no vitals taken for this visit. General appearance: healthy, alert, well hydrated, pleasant, no distress. Cardiovascular: no signs of upper or lower extremity edema Respiratory: no respiratory distress, no audible wheezing, no labored breathing Psychiatric: mood and affect are appropriate Skin: no abrasions or open wounds. Neurologic: Alert and oriented x 3 and Normal speech. MUSCULOSKELETAL EXAMINATION: Gait: patient ambulates with the assistance of a wheelchair Skin: Incision: clean, dry and intact and there is no erythema or drainage present. Neurovascularly intact distally Specialized Tests: There is no warmth, erythema, swelling or pain noted on examination of the bilateral calf areas. IMAGING: No imaging was performed today. EMILY Burgos-[facility]06-21-2022 History of Present illness Narrative* EMILY Burgos-Wendy - 09/27/2021 5:26 PM EDT Milla Soto [address] [facility] [address] Specialty Problems Ortho Problems Right ankle pain Acquired cavovarus deformity of foot, right Foot pain CC: Established Patient, Follow Up, and Post Op of the Right Ankle Injury/Surgery Date: 09/20/2021 Procedure: 1. Right subtalar arthrodesis. 2. Right iliac crest bone graft small. 3. Right achilles tendon lengthening. 4. Right ankle lateral ligament reconstruction. Sla Padilla is a 51 year old male that returns today for follow up of right foot surgery by Dr. Soto. He is here for his first postop visit. His main complaint is an itchy rash located primarily along his buttocks and upper posterior thigh region. Some mild spots along the posterior upper arm but no other systemic locations. He is unsure of the cause of this rash and notes the only medication that he is taking now that he has not had before is aspirin daily. He has been in a sedentary position with the surfaces in contact with bedding for the last several days. He is unsure of anychanges in laundry detergent, etc. He has tried Benadryl but not regularly. He denies any shortness of breath or difficulty breathing with the rash. ASSESSMENT: (M21.6X1) Acquired cavovarus deformity of foot, right (primary encounter diagnosis) (Z09) Postop check PLAN: Discussed options with the patient and recommended: 1. Placement in a short leg nonweightbearing bivalved cast 2. Will attempt to control the rash with showering, positional changes, and Benadryl regularly. If he does not improve we may consider switching his aspirin to Lovenox 40 mg once daily subcu. He willlet me know how things are going over the next several days and if things worsen we will try medication change 3. Patient will follow up in [address] Soto as scheduled Detailed instructions were reviewed with the patient and all questions were answered in detail. Patient voiced understanding and compliance with the above plan. We discussed emergent need to return to the express care or go to the emergency department. We discussed red flags associated with this condition and emergent treatment if they present. I spent a total of 20 minutes on the date of the service which included preparing to see the patient, [id number] patient care, completing clinical documentation, obtaining and/or reviewing separately obtained history, performing a medically appropriate examination, counseling and educating the pat ient/family/caregiver, communicating results to the patient/family/caregiver and care coordination (not separately reported). Review of Systems PHYSICAL FINDINGS: There were no vitals taken for this visit. General appearance: healthy, alert, well hydrated, pleasant, no distress. Cardiovascular: no signs of upper or lower extremity edema Respiratory: no respiratory distress, no audible wheezing, no labored breathing Psychiatric: mood and affect are appropriate Skin: no abrasions or open wounds. Neurologic: Alert and oriented x 3 and Normal speech. MUSCULOSKELETAL EXAMINATION: Gait: patient ambulates with the assistance of a wheelchair Skin: Incision: clean, dry and intact and there is no erythema or drainage present. Neurovascularly intact distally Specialized Tests: There is no warmth, erythema, swelling or pain noted on examination of the bilateral calf areas. IMAGING: No imaging was performed today. Ofelia Clay PA-C documented in this encounterWilson Health06-21-2022 NoteHNO ID: [id number] Author: COLE Coker Service: ? Author Type: Clinical Operations Project Manager Type: Progress Notes Filed: 10/05/2021 11:18 AM Note Text: PT ASSESSMENT - CASTING ROOM Sal presents for Application of cast. Applied short cast: to Right foot Patient has been instructed in Care of cast.. COLE Coker Beeper: [id number]06-16-2022 NoteHNO ID: [id number] Author: Guillaume Perez PA-C Service: Orthopaedic Surgery Author Type: Physician Piano Case And Bench Assembler Type: Plan of Care Filed: 09/22/2021 10:37 AM Note Text: Orthopedic Plan of Care Visit SERVICE DATE: September 22, 2021 SERVICE TIME: 1016 Type of Surgery/Reason for Admission: s/p ARTHRODESIS SUBTALAR - General * REPAIR ANKLE LIGAMENT SECONDARY DISRUPTED, COLLATERAL - General * GRAFT BONE ILIAC CREST - General * LENGTHENING TENDON EXTREMITY LOWER - General w/ Dr. Soto 09/20/2021 INTERVAL: Patient is seen in bed resting with leg elevated. Explains that he had one episode of pain that prevented him from sleeping last night which was improved with PO Oxycodone. Patient is currently preparing to leave with family to transport him at 11 a.m. No other questions or concerns at this time. Most recent labs, I/Os, VS, and notes reviewed for this visit. Hospital AND Post-op Plan: - Activity:?NWB RLE - Wound:?splint - Antibiotics: Completing 24 hours of perioperative?Ancef?then DC - Pain - PO and IV breakthrough, block per APMS. Oxycontin 10 mg Q12 discontinued ---> Oxycodone 5-10 mg Q3 PRN - DVT prophylaxis - SCDs,?asa 325 daily - HLIV when tolerating sufficient PO -?Labs pending today - PT/OT rec--> Home - Med Rec completed with addition of Tylenol. DC Instructions reviewed, DC order placed. ? Disposition- DC to?home today around 11 a.m. with family transport after Pain Management places/instructs on Amb pain block. Plan of care was completed with provider, patient and RN. All questions and concerns regarding the plan were addressed to the satisfaction of all participants. Thank you for the opportunity to participate in this patient's care. Guillaume Perez PA-C [phone] Health [facility]06-16-2022 NoteHNO ID: [id number] Author: Yun Cross MD Service: Orthopaedic Surgery Author Type: Resident Type: Progress Notes Filed: 09/22/2021 7:35 AM Note Text: ORTHOPAEDIC SURGERY PROGRESS NOTE PATIENT NAME: Sal Padilla Attending: Dr. Milla Soto MD A/P: 51 year old yo male POD2 s/p R cavovarus reconstruction by Dr. Soto. - Activity: NWB RLE - Wound: splint - Antibiotics: Completing 24 hours of perioperative Ancef then DC - Pain - PO and IV breakthrough, block per APMS - DVT prophylaxis - SCDs, asa 325 daily - HLIV when tolerating sufficient PO * Discharge planning - Home today with ambit pump per APMS S: Doing well, pain well controlled, some pain break through from block but tolerable, denies n/v/cp/sob VITALS: 09/21/21 2121 09/21/21 2145 09/22/21 0113 09/22/21 0541 BP: 139/64 134/65 137/71 Pulse: 85 98 87 Resp: 18 18 20 Temp: 36.9 ?C (98.4 ?F) 37.7 ?C (99.9 ?F) 36.8 ?C (98.2 ?F) TempSrc: Oral Temporal Oral SpO2: 94% 94% 94% Weight: Intake/Output Summary (Last 24 hours) at 09/22/2021 0733 Last data filed at 09/22/2021 0538 Gross per 24 hour Intake 1455 ml Output 1225 ml Net 230 ml Physical Exam: * Gen: awake, alert, converses appropriately, NAD * Resp: Unlabored on RA, no wheeze * RLE - dressing c,d,i - +wiggles toes, no sensation - toes wwp Labs: CBC: Recent Labs 09/22/21 0551 WBC 10.28 HB 14.8 HCT 45.0 PLT 173 MCV 86.4 RDWCV 13.5 COAG: No results for input(s): APTT, INR in the last 168 hours. BMP: Recent Labs 09/22/21 0551 GLUC 101* NA 137 K 3.7 CHLOR 102 CO2 25 ANION 10 BUN 10 CREAT 0.84 CHEM: Recent Labs 09/22/21 0551 CA 9.5 URINALYSIS:No results for input(s): PH, SPGR, UGLUC, UBILI, UKET, UHB, UPROT, UROBIL, UWBC, SSA in the last 168 hours. Invalid input(s): NITR Intake/Output Summary (Last 24 hours) at 09/22/2021 0733 Last data filed at 09/22/2021 0538 Gross per 24 hour Intake 1455 ml Output 1225 ml Net 230 ml Lines, Drains, and Airways Line Peripheral 09/20/21 0552 Admission to Hospital Short Left Forearm 16 Gauge 2 days Subcutaneous 09/20/21 0647 Peripheral Nerve Block Right Leg 2 days Yun Cross MD Orthopaedic Surgery PGY-3 Pager: [phone] (Page 2BONE after 5pm and on weekends)[facility]06-15-2022 NoteHNO ID: [id number] Author: Guillaume Perez PA-C Service: Orthopaedic Surgery Author Type: Physician Piano Case And Bench Assembler Type: Plan of Care Filed: 09/21/2021 3:51 PM Note Text: Orthopedic Plan of Care Visit SERVICE DATE: September 21, 2021 SERVICE TIME: 1045 Type of Surgery/Reason for Admission: s/p ARTHRODESIS SUBTALAR - General * REPAIR ANKLE LIGAMENT SECONDARY DISRUPTED, COLLATERAL - General * GRAFT BONE ILIAC CREST - General * LENGTHENING TENDON EXTREMITY LOWER - General w/ Dr. Soto 09/20/2021 INTERVAL: Patient is seen in bed with R leg elevated. He explains that he was able to ambulate to the bathroom with the assistance of PT this morning and passed BM. Explains that pain was significantly worse after moving, characterized as pressure and throbbing in RLE rated 6/10 with PNC and PO meds. Explained that we could reassess pain this afternoon to see how he's progressing. Patient expresses that his parents who are in their late 70s are who [place] and he doesn't want to have to rely on them too much. No other concerns at this time. 1550 update: Patient with fever and breakthrough pain requiring IV pain meds. Most recent labs, I/Os, VS, and notes reviewed for this visit. Hospital AND Post-op Plan: - Activity: NWB RLE - Wound: splint - Antibiotics: Completing 24 hours of perioperative Ancef then DC - Pain - PO and IV breakthrough, block per APMS. Oxycontin 10 mg Q12 discontinued ---> Oxycodone 5-10 mg Q3 PRN - DVT prophylaxis - SCDs, asa 325 daily - HLIV when tolerating sufficient PO - Labs pending today - PT/OT rec--> Home - Case Management --> assessment today Disposition- Anticipate DC to home tomorrow pending pain control Plan of care was completed with provider, patient and RN. All questions and concerns regarding the plan were addressed to the satisfaction of all participants. Thank you for the opportunity to participate in this patient's care. Guillaume Perez PA-C [phone] NoteHNO ID: [id number] Author: Yun Cross MD Service: Orthopaedic Surgery Author Type: Resident Type: Progress Notes Filed: 09/21/2021 7:32 AM Note Text: ORTHOPAEDIC SURGERY PROGRESS NOTE PATIENT NAME: Sal Padilla Attending: Dr. Milla Soto MD A/P: 51 year old yo male POD1 s/p R cavovarus reconstruction by Dr. Soto. - Activity: NWB RLE - Wound: splint - Antibiotics: Completing 24 hours of perioperative Ancef then DC - Pain - PO and IV breakthrough, block per APMS - DVT prophylaxis - SCDs, asa 325 daily - HLIV when tolerating sufficient PO - Labs pending today * Discharge planning - Await PT recs --> consult today - Case Management --> assessment today - Dispo: anticipate DC to home likely today pending pain control S: Doing well, pain well controlled, some pain break through from block, denies n/v/cp/sob VITALS: 09/20/21 2307 09/21/21 0000 09/21/21 0348 09/21/21 0530 BP: 113/60 115/63 Pulse: 76 76 Resp: 18 20 20 18 Temp: 36.9 ?C (98.4 ?F) 36.9 ?C (98.4 ?F) TempSrc: Oral Oral SpO2: 95% 96% 96% 96% Intake/Output Summary (Last 24 hours) at 09/21/2021 0730 Last data filed at 09/21/2021 0600 Gross per 24 hour Intake 2926 ml Output 1345 ml Net 1581 ml Physical Exam: * Gen: awake, alert, converses appropriately, NAD * Resp: Unlabored on RA, no wheeze * RLE - dressing c,d,i - +wiggles toes, no sensation - toes wwp Labs: CBC:No results for input(s): WBC, HB, HCT, PLT, MCV, RDWCV, NEUTP, ABSNEUT, LYMPHP, MONOP, EODINP in the last 168 hours. COAG: No results for input(s): APTT, INR in the last 168 hours. BMP: No results for input(s): GLUC, NA, K, CHLOR, CO2, ANION, BUN, CREAT in the last 168 hours. CHEM: No results for input(s): ALB, TPROT, CA, MG in the last 168 hours. URINALYSIS:No results for input(s): PH, SPGR, UGLUC, UBILI, UKET, UHB, UPROT, UROBIL, UWBC, SSA in the last 168 hours. Invalid input(s): NITR Intake/Output Summary (Last 24 hours) at 09/21/2021 0730 Last data filed at 09/21/2021 0600 Gross per 24 hour Intake 2926 ml Output 1345 ml Net 1581 ml Lines, Drains, and Airways Line Peripheral 09/20/21 0552 Admission to Hospital Short Left Forearm 16 Gauge 1 day Subcutaneous 09/20/21 0647 Peripheral Nerve Block Right Leg 1 day Yun Cross MD Orthopaedic Surgery PGY-3 Pager: [phone] (Page 2BONE after 5pm and on weekends)[facility]06-14-2022 NoteHNO ID: [id number] Author: Lakisha Mccoy CRNA Service: ? Author Type: Nurse Marine Chronometer Assembler Type: Anesthesia Procedure Notes Filed: 09/20/2021 8:02 AM Note Text: ANESTHESIOLOGY PROCEDURE NOTE Airway General Information Procedure Start Time/Medication Administration: 09/20/2021 7:40 AM Patient location during procedure: OR Timeout Performed Pre-procedure: timeout performed Consent Obtained: Yes Patient identity confirmed: arm band and patient Staffing EVENT CREW TECHNICIAN: Lakisha Mccoy CRNA Performed by: EVENT CREW TECHNICIAN Indications and Patient Condition Preoxygenated: yes Patient position: sniffing Difficult Mask: No Indications for airway management: anesthesia anesthesia circuit Method: asleep Cricoid Pressure: Yes Airway Accessory: oral airway Final Airway Details Final airway type: endotracheal airway Final Endotracheal Airway: ETT Cuffed: yes Successful intubation technique: video laryngoscopy Devices used: Stuart and intubating stylet Endotracheal tube insertion site: oral Blade size: #4 ETT size (mm): 8.0 Measured from: lips Measurement (cm): 23 Placement verified by: capnometry Cormack-Lehane Classification: grade IIa - partial view of glottis Number of attempts at approach: 1 Airway not difficult SIGNATURE: Lakisha Mccoy CRNA PATIENT NAME: Sal Padilla DATE: September 20, 2021 TIME: 8:01 AM CSN: [id number]22 NoteHNO ID: [id number] Author: Jorgito Galaviz DO Service: ? Author Type: Resident Type: Anesthesia Procedure Notes Filed: 09/20/2021 8:00 AM Note Text: Attestation signed by Ayla Marquez MD at 09/20/2021 10:15 AM Pt seen and case discussed with resident confirmed hale portions of the exam. Agreed with above plan as mentioned in resident note. Pt tolerated procedure well and femoral nerve single shot was performed without complications. Ayla Marquez MD ANESTHESIOLOGY PROCEDURE NOTE Peripheral Nerve Block General Information Procedure Start Time/Medication Administration: 09/20/2021 6:47 AM Procedure End time: 09/20/2021 7:04 AM Patient location during procedure: pre-op Timeout Performed Pre-procedure: emergent Consent Obtained: Yes Patient identity confirmed: arm band and patient Reason for block: post-op pain management/at surgeon's request Staffing Anesthesiologist: Ayla Marquez MD Resident: Jorgito Galaviz DO Performed by: resident and anesthesiologist Preparation Sterility Preparation: hand hygiene performed prior to procedure, sterile gloves, drapes, and procedure tray, surgical cap used, mask used, sterile drape used during line insertion, skin prep agent completely dried prior to procedure Sterility Technique Not Completely Performed Due to Extreme Emergency: No Site Prep: Chloraprep Procedure Details Patient Position: supine Monitoring: Pulse OX, EKG and NIBP Block Type Lower Extremity: femoral Approach: anterior Laterality: right Injection Technique: single-shot Ultrasound Guided: Yes Image in Chart: yesNo Local Infiltration: Yes Needle Needle Type: echogenic Needle Gauge: 20 G Needle Length: 10 cm Needle Localization: ultrasound and anatomical landmarks Needle Insertion Depth: 6 cm Catheter at Skin Depth: 11 cm Assessment Injection assessment: negative aspiration, no paresthesia on injection, incremental injection and local visualized surrounding nerve on ultrasound Post-Procedure Neuro Exam Expected Regional Anesthesia: Yes Medications Administered Ropivacaine (PF) 2 mg/mL (0.2 %) injection (NAROPIN), 20 mL Comments Patient is confirmed by two identifiers, the Risks, benefits and alternatives of the regional anesthesia procedure were explained and confirmed with the patient who agrees to proceed. Standard ASA monitors were applied according to the procedure protocol. Vital signs were stable throughout the procedure, and the patient was communicating. No pain on injection and the procedure was well tolerated. The post- procedure diagnosis is the same as pre- procedure. No significant findings. No Complications unless noted above. No specimen collected. Minimal or no blood loss Discharge/transfer criteria are met upon discharge. SIGNATURE: Jorgito Galaviz DO PATIENT NAME: Sal Padilla DATE: September 20, 2021 TIME: 7:57 AM CSN: [id number] Health [facility]06[facility]22 NoteHNO ID: [id number] Author: Ayla Marquez MD Service: ? Author Type: Anesthesiologist Type: Anesthesia Procedure Notes Filed: 09/20/2021 10:18 AM Note Text: ANESTHESIOLOGY PROCEDURE NOTE Peripheral Nerve Block General Information Procedure Start Time/Medication Administration: 09/20/2021 6:47 AM Procedure End time: 09/20/2021 7:04 AM Patient location during procedure: pre-op Timeout Performed Pre-procedure: timeout performed Consent Obtained: Yes Patient identity confirmed: arm band and patient Reason for block: post-op pain management/at surgeon's request Staffing Anesthesiologist: Ayla Marquez MD Resident: Jorgito Galaviz DO Performed by: resident and anesthesiologist Preparation Sterility Preparation: hand hygiene performed prior to procedure, sterile gloves, drapes, and procedure tray, surgical cap used, mask used, sterile drape used during line insertion, skin prep agent completely dried prior to procedure Sterility Technique Not Completely Performed Due to Extreme Emergency: No Site Prep: Chloraprep Pre-Procedure Neuro Exam Location: RLE Procedure Details Patient Position: supine Monitoring: Pulse OX, EKG and NIBP Block Type Lower Extremity: popliteal Approach: anterior Laterality: right Injection Technique: catheter Ultrasound Guided: Yes Image in Chart: yesNo Local Infiltration: Yes Needle Needle Type: Tuohy Needle Gauge: 17 G Needle Length: 10 cm Needle Localization: ultrasound and anatomical landmarks Catheter Type: open end Catheter Size: 19 GNo Assessment Injection assessment: negative aspiration, no paresthesia on injection, incremental injection and local visualized surrounding nerve on ultrasound Post-Procedure Neuro Exam Expected Regional Anesthesia: Yes Medications Administered Ropivacaine (PF) 5 mg/mL (0.5 %) injection (NAROPIN), 20 mL Comments Patient is confirmed by two identifiers, the Risks, benefits and alternatives of the regional anesthesia procedure were explained and confirmed with the patient who agrees to proceed. Standard ASA monitors were applied according to the procedure protocol. Vital signs were stable throughout the procedure, and the patient was communicating. No pain on injection and the procedure was well tolerated. The post- procedure diagnosis is the same as pre- procedure. No significant findings. No Complications unless noted above. No specimen collected. Minimal or no blood loss Discharge/transfer criteria are met upon discharge. SIGNATURE: Jorgito Galaviz DO PATIENT NAME: Sal Padilla DATE: September 20, 2021 TIME: 7:55 AM CSN: [id number] Popliteal catheter was performed with a posterior approach . Pt seen and case discussed with resident confirmed hale portions of the exam. agreed with above plan as mentioned in resident note. Popl. catheter was performed with out complications Will continue to follow Ayla Marquez [facility]06-03-2022 Miscellaneous Notes* Telephone Encounter - Ofelia Colunga RN - 09/09/2021 11:13 AM EDT Spoke directly with patient regarding ordered labs needed for surgery. He stated he was going [facility]to [place] [facility] to have drawn. documented in this encounterWilson Health05-27-2022 Instructions* Patient Instructions* Nini Borja PA-C - 09/02/2021 11:15 AM EDT PATIENT PREOPERATIVE INSTRUCTIONS Milla Soto MD has scheduled you for your procedure at this surgery center: [facility] Scheduling Office: [phone] --[address] [place] [address]. Please read below carefully for your personalized instructions. Dietary Restrictions: - No solid food after midnight. - You may have 12 ounces of clear liquids (water, clear juices such as apple juice or gatorade, carbonated beverages, clear tea, black coffee, jello) until 2 hours before scheduled arrival at facility. Medications: Unless instructed differently below, stay on all of your medications until your surgery. Approved medications to take the morning of surgery with a sip of water: None If you take any medications for erectile dysfunction-Cialis (Tadalafil), Levitra, Staxyn (Vardenafil) Viagra (Sildenenafil please do not take these for 48 hours before surgery. If you start any new medications after today's visit, please contact the surgeon's office. Blood Thinning Medications: - Stop NSAIDS (Ibuprofen, Advil, Aleve, Motrin, Celebrex, Mobic, etc.) 7 days before surgery, as directed by your surgeon. - Stop Aspirin 7 days before surgery, as directed by your surgeon. - Stop Vitamin E, ALL multi-vitamins, herbals and dietary supplements 7 days before surgery. - You may take Tylenol (Acetaminophen) or any of your pain medications that do not contain aspirin or NSAIDS as needed. Important Reminders: - Candy, mints, and tobacco products are NOT permitted the morning of surgery. - Hearing aids, dentures and glasses may be worn the morning of surgery. - NO jewelry, body piercings, makeup, hairpins or contacts are to be worn the day of surgery. If you develop symptoms such as a fever, cold, or flu, or have other changes to your health within TWO DAYS of scheduled surgery or the morning of surgery, please contact the surgery center above. Personal Belongings: -Please have photo ID and insurance cards. -If you do not have a copy of advance directives on file with us, please bring a copy with you on the day of surgery. - Leave ALL valuables and money at home or with family members. For Outpatient Procedures: - YOU MUST HAVE A RESPONSIBLE UNDERCAR SPECIALIST TAKE YOU HOME. A SENIOR C SOFTWARE ENGINEER OR BREAKER MACHINE OPERATOR CANNOT BE MADE A RESPONSIBLE UNDERCAR SPECIALIST. - We recommend that a responsible person stays with you overnight to take care of you. - You cannot stay in a hotel alone after outpatient surgery. You will not be permitted to have yoursurgery, if you do not have someone to take care of you. Arrival Time for Surgery: - To obtain your arrival time for surgery, call your physician's office the day before your surgery. - If your surgery is scheduled for Sunday, call the Sunday before. Your surgeon s education professional will tell you what time to call the office. - If you have not reached the departmental education professional by 5 P.M., call [phone] after 5 P.M. the day before your surgery. Please be aware that emergency situations arise, which may delay or change your surgical time. If this happens, we will notify you as soon as possible and regret any inconvenience. If you already have an Advance Directive, please fax a copy to [phone] or email to for it to be added to your chart. If you do not have an Advance Directive, you can find the appropriate form and more information at [email or web address]. We recommend that youcomplete the Advance Directive form found on the website and bring it with you the day of your surgery. It can be witnessed and scanned into your chart that day. Nini Borja PA-C documented in this encounterWilson Health05-27-2022 History and physical note * Nini Borja PA-C - 09/02/2021 10:39 AM EDT PREANESTHESIA CONSULT CLINIC TELEHEALTH VISIT Patient has been identified by name and date of : Yes This is a virtual visit using TRAFFIQ video visit. It require patient-provider interaction for the medical decision making as documented below. Reason for contact: PACC visit Accompanied by: Self Scheduled Surgery: ARTHRODESIS SUBTALAR RIGHT; REPAIR ANKLE LIGAMENT SECONDARY DISRUPTED, COLLATERAL RIGHT; GRAFT BONE ILIAC CREST RIGHT; LENGTHENING TENDON EXTREMITY LOWER RIGHT 09/20/2021 Subjective CHIEF COMPLAINT: Patient presents with: Pre-Op Exam HPI: This is a 51 year old male who presents with an acquired cavovarus deformity of his right foot. He initially developed pain in this foot shortly after a meniscal repair of his right knee in 2019. He underwent peroneal tendon debridement/repair, calcaneal/1st met osteotomy 12-10-20 for peroneal tendinopathy with a tear, however, he continues to have intermittent pain in this foot that with walking, standing, weight bearing. Rest helps to alleviate the pain. He also notes occasional swelling in the foot and ankle and he tends to roll this foot when he walks. In July he underwent removal of the hardware in preparation for above noted reconstruction. He denies recent trauma or injury but noted he did fracture his right foot in 2003. MRI from 08/14/2021 revealed: IMPRESSION: High-grade tear of the peroneal tendons as described. Tenosynovitis of the posterior tibialis and flexor digitorum longus tendons. Healed calcaneal osteotomy status post hardware removal. ACTIVE PROBLEM LIST Vertigo Right Ankle Pain Cerebral Aneurysm Hld (Hyperlipidemia) Bmi 34.0-34.9,Adult PAST MEDICAL HISTORY Diagnosis Date Abdominal pain, epigastric Acquired cavovarus deformity of foot, right Acute gastritis without mention of hemorrhage Cholecystitis History of meniscal tear Hyperlipidemia PAST SURGICAL HISTORY Procedure Laterality Date ARTHROSCOPIC HARDWARE REMOVAL Right 07/2021 REMOVAL HARDWARE FOOT CHOLECYSTECTOMY W/CHOLANGIOGRAPHY 04/05/2009 EGD TRANSORAL BIOPSY SINGLE/MULTIPLE 03/25/2009 nodular/gastritis FOOT SURGERY HX Right 2020 KNEE RIGHT OP SURGERY Right 2019 torn meniscus repair FAMILY HISTORY Problem Relation Age of Onset No Known Problems Mother Prostate Cancer Father Social History Tobacco Use Smoking status: Former Smoker Quit date: 04/09/2003 Years since quittin.4 Smokeless tobacco: Never Used Tobacco comment: chew Substance Use Topics Alcohol use: Yes Alcohol/week: 2.5 standard drinks Types: 1 Cans of Beer (12oz) per week Comment: 1-2 x per month. Drug use: No ALLERGIES No Known Allergies MEDICATIONS: Current Outpatient Medications Medication Sig atorvastatin (LIPITOR) 40 mg tablet Take 40 mg by mouth once daily. ondansetron (ZOFRAN) 4 mg tablet Take 1 tablet by mouth every 8 hours as needed for nausea/vomiting. (Patient not taking: Reported on 08/11/2021 ) docusate sodium (COLACE) 100 mg capsule Take 1 capsule by mouth twice daily. (Patient not taking: Reported on 08/11/2021 ) No current facility-administered medications for this visit. COVID VACCINATION STATUS: Fully vaccinated REVIEW OF SYSTEMS: Pain Assessment: General: No weight loss, malaise or fevers. Neuro: No history of TIA's, stroke, LOCKSTITCH ZIPPER SETTER tumor, impaired sensorium, hemiplegia, paraplegia or quadraplegia. +h/o brain aneurysm 2019 - followed with serial MRIs, resolved on most recent imaging without intervention +h/o vertigo - resolved Respiratory: No history of current cough or dyspnea, or pneumonia in the past 6 weeks. No history of respiratory/pulmonary symptoms or problems. Cardiovascular: No history of HTN requiring medication, no history of angina, CHF, [place], cardiac surgery or stents. Denies rest pain, gangrene or revascularization/amputation for PVD. No history of cardiovascular symptoms or problems.+hyperlipidemia GI: No history of GI symptoms or problems. No history of esophageal varices, recent ascites, or ETOH greater than 2 drinks per day. : No history of dysuria, frequency or incontinence,, stones or chronic kidney disease Endocrine: No history of diabetes. Has not taken steroids within the past 30 days. No history of endocrinological symptoms or problems. Hematology: No history of bleeding or clotting disorder. Pt is not taking anti- coagulation or platelet medications. No history of hematological symptoms or problems. Oncology: No history of CA metastasis, chemo within 30 days, or radiotherapy within 90 days. Has not lost 10% of body wt in 6 months. No history of oncological symptoms or problems. Psych: No history of psychiatric symptoms or problems. Musculoskeletal: Negative for back pain or muscle pain. +Acquired cavovarus deformity of foot, right- see HPI Skin: Negative for lesions, rash and itching. Objective PHYSICAL EXAM: Ht 5' 11 (1.80m) Wt 242 lb (109.8kg) BMI 33.77 kg/(m^2). VIDEO EXAM: (if completed, performed via video enabled technology) GENERAL: alert and appropriate, in no distress, well-hydrated, well nourished and happy, smiling, interactive +obese SKIN: no rash noted HEAD: normocephalic, no abnormality or lesion noted EYES: no injection and visual acuity is grossly normal EARS: hearing grossly normal NOSE: external nose normal without rhinorrhea OROPHARYNX: moist mucus membranes NECK: full ROM, no cervical LNs noted RESPIRATORY: breathing non-labored CHEST: equal chest rise with normal respiratory effort HEART: patient unable to palpate pulse EXTREMITIES: no patient reported lower extremity edema NEUROLOGIC: no obvious deficit Diagnostic tests reviewed for today's visit: Lab Value Units Date High Low HB No results within date range. HCT No results within date range. WBC No results within date range. PLT No results within date range. NA No results within date range. K No results within date range. GLUC No results within date range. BUN No results within date range. CREAT No results within date range. PTSEC No results within date range. INR No results within date range. APTT No results within date range. ALT No results within date range. AST No results within date range. TBILI No results within date range. TSH No results within date range. Lab Value Units Date High Low HCGQT No results within date range. UHCG No results within date range. HCG, BODY* No results within date range. Lab Value Units Date High Low ABORHD No results within date range. ABSCREEN No results within date range. No results found for: HBA1C Most recent labs Most recent imaging Impression/Recommendations ASSESSMENT: Acquired cavovarus deformity of foot, right Assessment: scheduled for ARTHRODESIS SUBTALAR RIGHT; REPAIR ANKLE LIGAMENT SECONDARY DISRUPTED, COLLATERAL RIGHT; GRAFT BONE ILIAC CREST RIGHT; LENGTHENING TENDON EXTREMITY LOWER RIGHT 09/20/2021 HLD (hyperlipidemia) Assessment: managed with Lipitor BMI 34.0-34.9,adult Assessment: Body mass index is 33.75 kg/m . Cerebral aneurysm Assessment: h/o brain aneurysm that was being monitored with serial imaging. Most recent CT from 06/04/2021 in Care Everywhere: IMPRESSION: No aneurysm or vascular malformation is identified. I personally viewed and interpreted these images and I have reviewed and approved this report. COMPARISON: No prior imaging is available, however there is an MRA report from 05/21/2019 which describes a small aneurysm arising at the junction of the left anterior cerebral and anterior communicating arteries. : Climb a flight of stairs or walk up a hill (5.50 METs) Patient denies any chest pain or undue shortness of breath with the above physical activity. Limited by foot pain ASA Class: 2 ANESTHESIA FINDINGS: Intubation History: No history of difficult intubation Significant Anesthesia Considerations: None +tip of his tongue was numb for ~ 10 days after right foot surgery 07/2021- patient is not sure it was related to anesthesia or the intubation Airway Exam: General: Normal appearance Mallampati Score is CLASS II ULBT: Class I - Lower incisors can bite the upper lip above the marky line Neck: Normal appearance and function, Distance from hyoid to mentum during neck extension is at least 3 finger breaths Mouth: Normal tongue size and Mouth opening greater than 2 finger breaths Dentition: Intact, Caps/crowns Airway History: No abnormal airway history STOP BANG Score: Criteria: Snoring Age over 50 (51 year old) Neck circumference > 15.75 inches Male gender Score = 4 PLAN: This patient is optimally prepared for surgery pending LABS. CONSULTS: Patient does not require consults for optimization at this time. The Following Tests/Procedures Have Been Initiated: EKG not indicated per [facility] protocol CBC w/ diff and BMP ordered by surgeon- patient will complete @ [facility] prior to surgery. Planned Anesthetic: General Instructions Given to Patient: Patient given verbal instructions and voices comprehension and compliance. Copy sent electronically via My Chart, email, or mobile device. I spent more than 21-40 minutes [id number] with the patient and over half the time was devoted tocounseling and/or coordination of care. This is a virtual visit. It required patient-provider interaction for the medical decision making as documented above. SIGNATURE: Nini Borja PA-C PATIENT NAME: Sal Padilla DATE: September 02, 2021 TIME: 12:05 PM PAGER/CONTACT #: documented in this encounterWilson Health05-19-2022 NoteHNO ID: [id number] Author: Milla Soto MD Service: ? Author Type: Physician Type: Progress Notes Filed: 08/25/2021 4:41 PM Note Text: Right varus foot deformity Incision CDI Sutures removed Discussed 2nd stage surgery. He would like to proceed. Will schedule for 09/20 The patient has therefore been indicated for surgical intervention consisting of Right subtalar joint fusion, possible calcaneocuboid fusion, iliac crest and allogenic bone graft, achilles lengthening, posterior tibial tendon lengthening vs transfer, lateral ankle ligament reconstruction with possible allograft tendon augmentation Will start with ST fusion, NIKOLE. May transfer PTT to peroneals vs lengthen. Will assess for CC Fusion once ST joint addressed Will assess talar tilt after Fusion. Will reef ATFL and CFL, may augment with allograft. We discussed the rationale for, risks of, and prolonged recovery associated with this surgery. The patient expressed understanding of all issues including risks of infection, nerve damage, wound dehiscence, nonunion, malunion, symptomatic hardware, overcorrection or undercorrection of deformity, incomplete relief of pain, inability to return to the patient's desired level of function, generalized dissatisfaction with the surgical procedure and outcome, deep vein thrombosis (DVT), pulmonary embolus, (PE), cardiac complications and . The patient understands that healing of bones and soft tissues will take approximately 3 months but full recovery will require 6-9 months. The patient also understands that it is critical to strictly elevate the operative leg for the first 3 weeks after surgery to control both swelling and pain. The patient was counseled that no weight will be allowed on the surgical leg for approximately 8-12 weeks or until the patient is instructed that it is safe to initiate weightbearing. The patient expressed full understanding of all these issues and would like to proceed with surgery. Milla Soto, [facility]05-19-2022 History of Present illness Narrative* Milla Soto MD - 08/25/2021 4:29 PM EDT Right varus foot deformity Incision CDI Sutures removed Discussed 2nd stage surgery. He would like to proceed. Will schedule for 09/20 The patient has therefore been indicated for surgical intervention consisting of Right subtalar joint fusion, possible calcaneocuboid fusion, iliac crest and allogenic bone graft, achilles lengthening, posterior tibial tendon lengthening vs transfer, lateral ankle ligament reconstruction with possible allograft tendon augmentation Will start with ST fusion, NIKOLE. May transfer PTT to peroneals vs lengthen. Will assess for CC Fusion once ST joint addressed Will assess talar tilt after Fusion. Will reef ATFL and CFL, may augment with allograft. We discussed the rationale for, risks of, and prolonged recovery associated with this surgery. The patient expressed understanding of all issues including risks of infection, nerve damage, wound dehiscence, nonunion, malunion, symptomatic hardware, overcorrection or undercorrection of deformity, incomplete relief of pain, inability to return to the patient's desired level of function, generalizeddissatisfaction with the surgical procedure and outcome, deep vein thrombosis (DVT), pulmonary embolus, (PE), cardiac complications and . The patient understands that healing of bones and soft tissues will take approximately 3 months butfull recovery will require 6-9 months. The patient also understands that it is critical to strictlyelevate the operative leg for the first 3 weeks after surgery to control both swelling and pain. The patient was counseled that no weight will be allowed on the surgical leg for approximately 8-12 weeks or until the patient is instructed that it is safe to initiate weightbearing. The patient expressed full understanding of all these issues and would like to proceed with surgery. Milla Soto MD documented in this encounterWilson Health05-08-2022 NoteHNO ID: [id number] Author: Shirlene Braun Service: ? Author Type: Operations Project Manager Type: Progress Notes Filed: 08/14/2021 7:09 AM Note Text: Radiology Service Progress Note PATIENT NAME: Sal Padilla DATE OF SERVICE: August 14, 2021 TIME: 7:09 AM PATIENT IDENTITY VERIFICATION COMPLETED USING TWO (2) IDENTIFIERS: Name and Date of confirmed by patient verbally and Name and Date of confirmed by identification band. FALL SCREENING: Has the patient had 2 falls in the last year or 1 fall with injury or currently using an Ambulatory Assistive Device (Walker, Cane, Wheelchair, Crutches, etc.)? Yes, Patient High Risk for Falls What interventions were put in place to prevent falls during this visit? Instructed Patient to Call for Help if Needed, Offered Assistance with Transfers/Clothing, Instructed Patient to Remain Seated (Not on Exam Table) Until Exam, Increased Observations by Caregivers and Patient Refused Interventions/Assistance PATIENT GENDER DATA: Male PATIENT RELEVANT IMPLANT DATA REVIEWED: Yes RADIOLOGY DEPARTMENT: MR; Exam(s) Completed: Lower MSK: Ankle/Hind Foot, right PERIPHERAL IV DATA: Not applicable SIGNED BY: Shirlene Braun August 14, 2021 7:09 [facility]05-08-2022 History of Present illness Narrative* Shirlene Braun - 08/14/2021 7:00 AM EDT Radiology Service Progress Note PATIENT NAME: Sal Padilla DATE OF SERVICE: August 14, 2021 TIME: 7:09 AM PATIENT IDENTITY VERIFICATION COMPLETED USING TWO (2) IDENTIFIERS: Name and Date of confirmedby patient verbally and Name and Date of confirmed by identification band. FALL SCREENING: Has the patient had 2 falls in the last year or 1 fall with injury or currently using an Ambulatory Assistive Device (Walker, Cane, Wheelchair, Crutches, etc.)? Yes, Patient High Riskfor Falls What interventions were put in place to prevent falls during this visit? Instructed Patient to Callfor Help if Needed, Offered Assistance with Transfers/Clothing, Instructed Patient to Remain Seated(Not on Exam Table) Until Exam, Increased Observations by Caregivers and Patient Refused Interventio ns/Assistance PATIENT GENDER DATA: Male PATIENT RELEVANT IMPLANT DATA REVIEWED: Yes RADIOLOGY DEPARTMENT: MR; Exam(s) Completed: Lower MSK: Ankle/Hind Foot, right PERIPHERAL IV DATA: Not applicable SIGNED BY: Shirlene Braun August 14, 2021 7:09 AM documented in this encounterWilson Health05-07-2022 NoteHNO ID: [id number] Author: Milla Soto MD Service: ? Author Type: Physician Type: Progress Notes Filed: 08/13/2021 2:26 PM Note Text: Incision CDI Dry dressing changes Partial WB Vit D Fu 2 weeks for sutures, MR review, pick surgery date Milla Soto, [facility]05-07-2022 History of Present illness Narrative* Milla Soto MD - 08/13/2021 2:25 PM EDT Incision CDI Dry dressing changes Partial WB Vit D Fu 2 weeks for sutures, MR manjit mosqueda surgery date Milla Soto MD documented in this encounterWilson Health04-28-2022 NoteHNO ID: [id number] Author: Nina Degroot RN Service: ? Author Type: Registered Nurse Type: Nursing Progress Note Filed: 08/04/2021 9:02 AM Note Text: Oral airway removed, patient waking up more.[facility]04-28-[facility] NoteHNO ID: [id number] Author: CHUCKY Woodward Service: ? Author Type: Seafood Specialist Type: Anesthesia Procedure Notes Filed: 08/04/2021 8:09 AM Note Text: ANESTHESIOLOGY PROCEDURE NOTE Airway General Information Procedure Start Time/Medication Administration: 08/04/2021 7:46 AM Patient location during procedure: OR Patient identity confirmed: arm band and patient Staffing Anesthesiologist: Matthew Rodriguez MD CAA: CHUCKY Woodward Performed by: BRODY Indications and Patient Condition Preoxygenated: yes Indications for airway management: anesthesia Method: asleep Final Airway Details Final airway type: supraglottic airway Number of attempts at approach: 1 Final Supraglottic Airway: IGEL Size 5 Seal Adequate: yes Airway not difficult SIGNATURE: CHUCKY Woodward PATIENT NAME: Sal Padilla DATE: August 04, 2021 TIME: 8:08 AM CSN: [id number] [facility]04-21-2022 Miscellaneous Notes* Addendum Note - Milla Soto MD - 07/28/2021 2:37 PM EDT Addended by: MILLA SOTO on: 07/28/2021 02:37 PM Modules accepted: Orders documented in this encounterWilson Health04-21-2022 NoteHNO ID: [id number] Author: Milla Soto MD Service: ? Author Type: Physician Type: Progress Notes Filed: 07/28/2021 2:37 PM Note Text: July 28, 2021 HPI: Sal Padilla is a 51 yo male who had foot surgery on right in [place] in December 2020. Reports a broken ankle in 2003. Sounds like he had a cavovarus foot recon. Op report describes complete PB tear with tenodesis to PL. Now with residual pain and swelling and instability. Feels he walks on side of foot. Pain Descriptors: Duration: chronic Severity: moderate Quality: ache Location: foot, ankle Context: worse with activity and dependent position Modifying Factors: improved with rest and elevation Supporting Subjective Information Below: Estimated body mass index is 33.47 kg/m? as calculated from the following: Height as of this encounter: 180.3 cm (5' 11). Weight as of this encounter: 108.9 kg (240 lb). Past Medical History PAST MEDICAL HISTORY Diagnosis Date - Abdominal pain, epigastric - Acute gastritis without mention of hemorrhage - Hyperlipidemia Surgical History: PAST SURGICAL HISTORY Procedure Laterality Date - CHOLECYSTECTOMY W/CHOLANGIOGRAPHY 04/05/09 - EGD TRANSORAL BIOPSY SINGLE/MULTIPLE nodular/gastritis - NONE Family History: FAMILY HISTORY Problem Relation Age of Onset - Prostate Cancer Father Medications: Current Outpatient Medications Medication Sig - atorvastatin (LIPITOR) 40 mg tablet Take 40 mg by mouth once daily. - esomeprazole mag trihydrate(NEXIUM 40 MG CAP) take one capsule twice daily No current facility-administered medications for this visit. Allergies: Patient has no known allergies. Review Of Systems GENERAL:Negative for malaise, significant weight loss and fever HEENT:Negative for frequent or significant headaches, significant changes in vision or vision problems, significant ear problems or hearing loss, nasal discharge or nose bleeds and sore throat, difficulty swallowing, mouth lesions NECK:Negative for lumps, goiter, pain and significant neck swelling RESPIRATORY: Negative for cough, wheezing and shortness of breath CARDIOVASCULAR: Negative for chest pain, leg swelling and palpitations GASTROINTESTINAL: Negative for abdominal discomfort, blood in stools or black stools and change in bowel habits GENITOURINARY: Negative for dysuria, frequency and incontinence MUSCULOSKELETAL: Negative for joint pain or swelling, back pain, and muscle pain. NEUROLOGIC:Negative for focal numbness or weakness, headaches and dizziness. SKIN:Negative for lesions, rash, and itching. PSYCHIATRIC: Negative for sleep disturbance, mood disorder and recent psychosocial stressors. HEMATOLOGIC/LYMPHATIC/IMMUNOLOGIC:Negative for prolonged bleeding, bruising easily, and swollen nodes. ENDOCRINE: Negative for cold or heat intolerance, polyuria, polydipsia and goiter. Physical Exam: Basic physical examination reveals the patient to be in no acute distress. The patient is alert and oriented x 3 Mood and affect are appropriate. Head is atraumatic, normocephalic. Neck ROM grossly intact. Mucous membranes are moist. Eyes, ears, and nose are normal in appearance. Hearing is grossly intact. Breathing is unlabored with grossly normal chest motion. Limited Upper Extremity Exam: Shoulders with grossly intact ROM and strength, no obvious deformity. Elbows with grossly intact ROM and strength, no obvious deformity. Hand and wrist with grossly intact ROM and strength, no obvious deformity. Focused orthopaedic examination reveals the following: Skin intact without lesions. Healed lateral incision Laxity of AD and TT Marked weakness of active eversion Seated alignment relatively plantigrade Will stance heel varus is significant Imaging: XR with retained headless Arthrex 7 mm screws, 1st MT plate Ankle mortise intact Subluxated ST joint and over-adducted TN joint Assessment and Plan: Right cavovarus foot, failed cavovarus foot reconstruction, ankle instability, peroneal tendon insufficiency We discussed the complexity of his problem To better assess what surgical tx will entail, I have ordered MR to assess for degen changes He will likely need ST fusion, PTT transfer to peroneals, ankle ligament reconstruction. He understands he will likely need an [place] type brace with or without surgery. He will also need staged surgical tx with initial removal of heel screws followed by the more comprehensive surgery. He expressed a desire to move forward Therefore we agreed to start with removal of the heel screws He understands the bigger reconstructive surgery will be 4-6 weeks later. He will also start VIT D. Return to clinic: sp MR X-Ray's at next visit: Yes, calcaneus and alignment views PCP: Ayla Rodriguez MD [address] [place] [address] [place] [phone] FELLOW / RESIDENT: No fellow or resident assisted in this office visit. M (more content not included)...[facility]04-21-2022 NoteHNO ID: [id number] Author: RT Uzma(R) Service: ? Author Type: Technologist Type: Progress Notes Filed: 07/28/2021 11:58 AM Note Text: Radiology Service Progress Note PATIENT NAME: Sal Padilla DATE OF SERVICE: July 28, 2021 TIME: 11:58 AM PATIENT IDENTITY VERIFICATION COMPLETED USING TWO (2) IDENTIFIERS: Name and Date of confirmed by patient verbally. FALL SCREENING: Has the patient had 2 falls in the last year or 1 fall with injury or currently using an Ambulatory Assistive Device (Walker, Cane, Wheelchair, Crutches, etc.)? No PATIENT GENDER DATA: Male PATIENT RELEVANT IMPLANT DATA REVIEWED: Not Applicable RADIOLOGY DEPARTMENT: General X-ray: Exam(s) Completed: Lower Extremity X-Ray(s): Ankle, Right and Wt. Bearing and Foot, Right and Wt. Bearing PERIPHERAL IV DATA: Not applicable SIGNED BY: RT Uzma(R) July 28, 2021 11:58 [facility]04-21-2022 History of Present illness Narrative* Milla Soto MD - 07/28/2021 11:59 AM EDT July 28, 2021 HPI: Sal Padilla is a 51 yo male who had foot surgery on right in [place] in December 2020.Reports a broken ankle in 2003. Sounds like he had a cavovarus foot recon. Op report describes complete PB tear with tenodesis to PL. Now with residual pain and swelling and instability. Feels he walks on side of foot. Pain Descriptors: Duration: chronic Severity: moderate Quality: ache Location: foot, ankle Context: worse with activity and dependent position Modifying Factors: improved with rest and elevation Supporting Subjective Information Below: Estimated body mass index is 33.47 kg/m as calculated from the following: Height as of this encounter: 180.3 cm (5' 11). Weight as of this encounter: 108.9 kg (240 lb). Past Medical History PAST MEDICAL HISTORY Diagnosis Date Abdominal pain, epigastric Acute gastritis without mention of hemorrhage Hyperlipidemia Surgical History: PAST SURGICAL HISTORY Procedure Laterality Date CHOLECYSTECTOMY W/CHOLANGIOGRAPHY 04/05/09 EGD TRANSORAL BIOPSY SINGLE/MULTIPLE nodular/gastritis NONE Family History: FAMILY HISTORY Problem Relation Age of Onset Prostate Cancer Father Medications: Current Outpatient Medications Medication Sig atorvastatin (LIPITOR) 40 mg tablet Take 40 mg by mouth once daily. esomeprazole mag trihydrate(NEXIUM 40 MG CAP) take one capsule twice daily No current facility-administered medications for this visit. Allergies: Patient has no known allergies. Review Of Systems GENERAL:Negative for malaise, significant weight loss and fever HEENT:Negative for frequent or significant headaches, significant changes in vision or vision problems, significant ear problems or hearing loss, nasal discharge or nose bleeds and sore throat, difficulty swallowing, mouth lesions NECK:Negative for lumps, goiter, pain and significant neck swelling RESPIRATORY: Negative for cough, wheezing and shortness of breath CARDIOVASCULAR: Negative for chest pain, leg swelling and palpitations GASTROINTESTINAL: Negative for abdominal discomfort, blood in stools or black stools and change in bowel habits GENITOURINARY: Negative for dysuria, frequency and incontinence MUSCULOSKELETAL: Negative for joint pain or swelling, back pain, and muscle pain. NEUROLOGIC:Negative for focal numbness or weakness, headaches and dizziness. SKIN:Negative for lesions, rash, and itching. PSYCHIATRIC: Negative for sleep disturbance, mood disorder and recent psychosocial stressors. HEMATOLOGIC/LYMPHATIC/IMMUNOLOGIC:Negative for prolonged bleeding, bruising easily, and swollen nodes. ENDOCRINE: Negative for cold or heat intolerance, polyuria, polydipsia and goiter. Physical Exam: Basic physical examination reveals the patient to be in no acute distress. The patient is alert and oriented x 3 Mood and affect are appropriate. Head is atraumatic, normocephalic. Neck ROM grossly intact. Mucous membranes are moist. Eyes, ears, and nose are normal in appearance. Hearing is grossly intact. Breathing is unlabored with grossly normal chest motion. Limited Upper Extremity Exam: Shoulders with grossly intact ROM and strength, no obvious deformity. Elbows with grossly intact ROM and strength, no obvious deformity. Hand and wrist with grossly intact ROM and strength, no obvious deformity. Focused orthopaedic examination reveals the following: Skin intact without lesions. Healed lateral incision Laxity of AD and TT Marked weakness of active eversion Seated alignment relatively plantigrade Will stance heel varus is significant Imaging: XR with retained headless Arthrex 7 mm screws, 1st MT plate Ankle mortise intact Subluxated ST joint and over-adducted TN joint Assessment and Plan: Right cavovarus foot, failed cavovarus foot reconstruction, ankle instability,peroneal tendon insufficiency We discussed the complexity of his problem To better assess what surgical tx will entail, I have ordered MR to assess for degen changes He will likely need ST fusion, PTT transfer to peroneals, ankle ligament reconstruction. He understands he will likely need an [place] type brace with or without surgery. He will also need staged surgical tx with initial removal of heel screws followed by the more comprehensive surgery. He expressed a desire to move forward Therefore we agreed to start with removal of the heel screws He understands the bigger reconstructive surgery will be 4-6 weeks later. He will also start VIT D. Return to clinic: sp MR X-Ray's at next visit: Yes, calcaneus and alignment views PCP: Ayla Rodriguez MD [address] [place] [address] [place] [phone] FELLOW / RESIDENT: No fellow or resident assisted in this office visit. Milla Soto MD documented in this encounterWilson Health04-21-2022 History of Present illness Narrative* Barney Mace RT(R) - 07/28/2021 11:50 AM EDT Radiology Service Progress Note PATIENT NAME: Sal Padilla DATE OF SERVICE: July 28, 2021 TIME: 11:58 AM PATIENT IDENTITY VERIFICATION COMPLETED USING TWO (2) IDENTIFIERS: Name and Date of confirmedby patient verbally. FALL SCREENING: Has the patient had 2 falls in the last year or 1 fall with injury or currently using an Ambulatory Assistive Device (Walker, Cane, Wheelchair, Crutches, etc.)? No PATIENT GENDER DATA: Male PATIENT RELEVANT IMPLANT DATA REVIEWED: Not Applicable RADIOLOGY DEPARTMENT: General X-ray: Exam(s) Completed: Lower Extremity X- Ray(s): Ankle, Right and Wt. Bearing and Foot, Right and Wt. Bearing PERIPHERAL IV DATA: Not applicable SIGNED BY: RT Uzma(R) July 28, 2021 11:58 AM documented in this encounterWilson Health12-15-2009 History of Past illness Narrative* Problem Noted Date Resolved Date Abdominal pain, epigastric 03/23/200907/29 documented as of this encounter (statuses as of 08/13/2021) [address]15-2009 History of Past illness Narrative* Problem Noted Date Resolved Date Abdominal pain, epigastric 03/23/200907/29 documented as of this encounter (statuses as of 08/15/2021) [address]15-2009 History of Past illness Narrative* Problem Noted Date Resolved Date Abdominal pain, epigastric 03/23/200907/29 documented as of this encounter (statuses as of 08/25/2021) [address]15-2009 History of Past illness Narrative* Problem Noted Date Resolved Date Abdominal pain, epigastric 03/23/200907/29 documented as of this encounter (statuses as of 09/02/2021) [address]15-2009 History of Past illness Narrative* Problem Noted Date Resolved Date Abdominal pain, epigastric 03/23/200907/29 documented as of this encounter (statuses as of 09/09/2021) [address]15-2009 History of Past illness Narrative* Problem Noted Date Resolved Date Abdominal pain, epigastric 03/23/200907/29 documented as of this encounter (statuses as of 09/27/2021) [address]2009 History of Past illness Narrative* Problem Noted Date Resolved Date Abdominal pain, epigastric 03/23/200907/29 documented as of this encounter (statuses as of 09/29/2021) [address]2009 History of Past illness Narrative* Problem Noted Date Resolved Date Abdominal pain, epigastric 03/23/200907/29 documented as of this encounter (statuses as of 09/30/2021) [address]2009 History of Past illness Narrative* Problem Noted Date Resolved Date Abdominal pain, epigastric 03/23/200907/29 documented as of this encounter (statuses as of 10/13/2021) [address]15-2009 History of Past illness Narrative* Problem Noted Date Resolved Date Abdominal pain, epigastric 03/23/200907/29 documented as of this encounter (statuses as of 10/27/2021) [address]2009 History of Past illness Narrative* Problem Noted Date Resolved Date Abdominal pain, epigastric 03/23/200907/29 documented as of this encounter (statuses as of 11/23/2021) [address]15[address]2009 History of Past illness Narrative* Problem Noted Date Resolved Date Abdominal pain, epigastric 03/23/200907/29 documented as of this encounter (statuses as of 11/24/2021) [address]15[address]2009 History of Past illness Narrative* Problem Noted Date Resolved Date Abdominal pain, epigastric 03/23/200907/29 documented as of this encounter (statuses as of 01/05/2022) [address]15[address]2009 History of Past illness Narrative* Problem Noted Date Resolved Date Abdominal pain, epigastric 03/23/200907/29 documented as of this encounter (statuses as of 01/24/2022) [address]15[address]2009 History of Past illness Narrative* Problem Noted Date Resolved Date Abdominal pain, epigastric 03/23/200907/29 documented as of this encounter (statuses as of 03/06/2022) [address]2009 History of Past illness Narrative* Problem Noted Date Resolved Date Abdominal pain, epigastric 03/23/200907/29 documented as of this encounter (statuses as of 06/08/2022) [facility]* Diagnosis Pain in joint involving right ankle and foot- Primary Peroneal tendinitis of right lower extremity Other enthesopathy of ankle and tarsus Pain in joint involving right ankle and foot Peroneal tendinitis of right lower extremity Other enthesopathy of ankle and tarsus documented [facility] noteNo assessment information availableWCleveland Clinic [facility] Work Phone: Evaluation note* Diagnosis Cavovarus deformity of foot- Primary Cavovarus deformity of foot, acquired [facility] Diagnosis Peroneal tendinitis of right lower extremity Other enthesopathy of ankle and tarsus [facility] Acquired cavovarus deformity of foot, right- Primary [facility]* Diagnosis Preoperative examination- Primary Preoperative examination, unspecified Acquired cavovarus deformity of foot, right Hyperlipidemia, unspecified hyperlipidemia type Cerebral aneurysm Cerebral aneurysm, nonruptured BMI 34.0-34.9,adult Body Mass Index 34.0-34.9, adult Acquired cavovarus deformity of foot, right documented in this encounter [facility] note* Diagnosis Acquired cavovarus deformity of foot, right- Primary Postop check Follow-up examination, following unspecified surgery [facility]* Diagnosis Acquired cavovarus deformity of foot, right- Primary [facility]* Diagnosis Acquired cavovarus deformity of foot, right- Primary [facility]* Diagnosis Acquired cavovarus deformity of foot, right- Primary [facility]* Diagnosis Acquired cavovarus deformity of foot, right- Primary documented in this encounter [facility] note* Diagnosis Right ankle pain, unspecified chronicity- Primary documented in this encounter [facility] note* Diagnosis Acquired cavovarus deformity of foot, right- Primary documented in this encounter [facility] note* Diagnosis Acquired cavovarus deformity of foot, right- Primary documented in this encounter [facility] note* Diagnosis Pre-op evaluation- Primary Preoperative examination, unspecified Right ankle pain, unspecified chronicity Cerebral aneurysm Cerebral aneurysm, nonruptured Hyperlipidemia, unspecified hyperlipidemia type BMI 34.0-34.9,adult Body Mass Index 34.0-34.9, adult Preoperative examination- Primary Preoperative examination, unspecified Acquired cavovarus deformity of foot, right Hyperlipidemia, unspecified hyperlipidemia type Cerebral aneurysm Cerebral aneurysm, nonruptured BMI 34.0-34.9,adult Body Mass Index 34.0-34.9, adult Acquired cavovarus deformity of foot, right [facility]* Diagnosis Pre-op evaluation- Primary Preoperative examination, unspecified Right ankle pain, unspecified chronicity Cerebral aneurysm Cerebral aneurysm, nonruptured Hyperlipidemia, unspecified hyperlipidemia type BMI 34.0-34.9,adult Body Mass Index 34.0-34.9, adult Preoperative examination- Primary Preoperative examination, unspecified Acquired cavovarus deformity of foot, right Hyperlipidemia, unspecified hyperlipidemia type Cerebral aneurysm Cerebral aneurysm, nonruptured BMI 34.0-34.9,adult Body Mass Index 34.0-34.9, adult Right ankle pain, unspecified chronicity [facility]* Diagnosis Pre-op evaluation- Primary Preoperative examination, unspecified Right ankle pain, unspecified chronicity Cerebral aneurysm Cerebral aneurysm, nonruptured Hyperlipidemia, unspecified hyperlipidemia type BMI 34.0-34.9,adult Body Mass Index 34.0-34.9, adult Preoperative examination- Primary Preoperative examination, unspecified Acquired cavovarus deformity of foot, right Hyperlipidemia, unspecified hyperlipidemia type Cerebral aneurysm Cerebral aneurysm, nonruptured BMI 34.0-34.9,adult Body Mass Index 34.0-34.9, adult Right ankle pain, unspecified chronicity [facility]* Diagnosis Pre-op evaluation- Primary Preoperative examination, unspecified Right ankle pain, unspecified chronicity Cerebral aneurysm Cerebral aneurysm, nonruptured Hyperlipidemia, unspecified hyperlipidemia type BMI 34.0-34.9,adult Body Mass Index 34.0-34.9, adult Preoperative examination- Primary Preoperative examination, unspecified Acquired cavovarus deformity of foot, right Hyperlipidemia, unspecified hyperlipidemia type Cerebral aneurysm Cerebral aneurysm, nonruptured BMI 34.0-34.9,adult Body Mass Index 34.0-34.9, adult Acquired cavovarus deformity of foot, right [facility]* Diagnosis Pre-op evaluation- Primary Preoperative examination, unspecified Right ankle pain, unspecified chronicity Cerebral aneurysm Cerebral aneurysm, nonruptured Hyperlipidemia, unspecified hyperlipidemia type BMI 34.0-34.9,adult Body Mass Index 34.0-34.9, adult Preoperative examination- Primary Preoperative examination, unspecified Acquired cavovarus deformity of foot, right Hyperlipidemia, unspecified hyperlipidemia type Cerebral aneurysm Cerebral aneurysm, nonruptured BMI 34.0-34.9,adult Body Mass Index 34.0-34.9, adult Pain in joint involving right ankle and foot Peroneal tendinitis of right lower extremity Other enthesopathy of ankle and tarsus documented [facility]* Diagnosis Pre-op evaluation- Primary Preoperative examination, unspecified Right ankle pain, unspecified chronicity Cerebral aneurysm Cerebral aneurysm, nonruptured Hyperlipidemia, unspecified hyperlipidemia type BMI 34.0-34.9,adult Body Mass Index 34.0-34.9, adult Preoperative examination- Primary Preoperative examination, unspecified Acquired cavovarus deformity of foot, right Hyperlipidemia, unspecified hyperlipidemia type Cerebral aneurysm Cerebral aneurysm, nonruptured BMI 34.0-34.9,adult Body Mass Index 34.0-34.9, adult Acquired cavovarus deformity of foot, right [facility] Diagnosis Pain in joint involving right ankle and foot Preoperative examination- Primary Preoperative examination, unspecified Acquired cavovarus deformity of foot, right Hyperlipidemia, unspecified hyperlipidemia type Cerebral aneurysm Cerebral aneurysm, nonruptured BMI 34.0-34.9,adult Body Mass Index 34.0-34.9, adult documented in this encounter [facility] (n[facility] Diagnostic Procedure Only (Routine) - Pending Review Specialty Diagnoses / Procedures Referred By Kavya cohn Referred To Contact XR IMAGING Diagnoses Pain in joint involving right ankle and foot Peroneal tendinitis of right lower extremity Procedures XR CALCANEUS 2V AXIAL/LAT RIGHT RADEX CALCANEUS MINIMUM 2 VIEWS Milla Soto MD [address] [place] [address] Xr Imaging Referral ID Status Reason Start Date Expiration Date Visits Requested Visits Authorized [id number] Pending Review Auto-Generat ed Referral 07/28/2021 08/27/2022 1 1 * MRI/CT (Routine) - Additional Clinical Info Needed Specialty Diagnoses / Procedures Referred By Kavya cohn Referred To Contact MR IMAGING Diagnoses Peroneal tendinitis of right lower extremity Procedures MRI ANKLE WO IVCON RT MRI ANY JT LOWER EXTREM W/O CONTRAST MATRL Milla Soto MD [address] [place] [address] Mr Imaging Referral ID Status Reason Start Date Expiration Date Visits Requested Visits Authorized [id number] Additional Clinical Info Needed Auto-Generat ed Referral 07/28/2021 08/27/2022 1 1 * Diagnostic Procedure Only (Routine) - Closed Specialty Diagnoses / Procedures Referred By Contac t Referred To Contact XR IMAGING Diagnoses Pain in joint involving right ankle and foot Procedures XR FOOT GENERAL 3V AP/LAT/OBL RIGHT RADEX FOOT COMPLETE MINIMUM 3 VIEWS Milla Soto MD [address] [place] [address] Xr Imaging Referral ID Status Reason Start Date Expiration Date V isits Requested Visits Authorized [id number] Closed Auto-Generate d Referral 07/28/2021 08/27/2022 1 1 * Diagnostic Procedure Only (Routine) - Closed Specialty Diagnoses / Procedures Referred By Contac t Referred To Contact XR IMAGING Diagnoses Pain in joint involving right ankle and foot Procedures XR ANKLE GENERAL 3V AP/LAT/OBL RIGHT RADEX ANKLE COMPLETE MINIMUM 3 VIEWS Milla Soto MD [address] [place] [address] Xr Imaging Referral ID Status Reason Start Date Expiration Date V isits Requested Visits Authorized [id number] Closed Auto-Generate d Referral 07/28/2021 08/27/2022 1 1 [facility] for referral (narrative)* Diagnostic Procedure Only (Routine) - Authorized Specialty Diagnoses / Procedures Referred By Contac t Referred To Contact XR IMAGING Diagnoses Acquired cavovarus deformity of foot, right Procedures XR ANKLE GENERAL 3V AP/LAT/OBL RIGHT RADEX ANKLE COMPLETE MINIMUM 3 VIEWS Milla Soto MD [address] [place] [phone] Xr Imaging Referral ID Status Reason Start Date Expiration Date Visits Requested Visits Authorized [id number] Authorized Auto-Generat ed Referral 10/13/2021 11/12/2022 1 1 * Diagnostic Procedure Only (Routine) - Authorized Specialty Diagnoses / Procedures Referred By Contac t Referred To Contact XR IMAGING Diagnoses Acquired cavovarus deformity of foot, right Procedures XR FOOT GENERAL 3V AP/LAT/OBL RIGHT RADEX FOOT COMPLETE MINIMUM 3 VIEWS Milla Soto MD [address] [place] [address] Xr Imaging Referral ID Status Reason Start Date Expiration Date Visits Requested Visits Authorized [id number] Authorized Auto-Generat ed Referral 10/13/2021 11/12/2022 1 1 [facility] for referral (narrative)* Diagnostic Procedure Only (Routine) - Pending Review Specialty Diagnoses / Procedures Referred By Contac t Referred To Contact XR IMAGING Diagnoses Acquired cavovarus deformity of foot, right Procedures XR ANKLE GENERAL 3V AP/LAT/OBL RIGHT RADEX ANKLE COMPLETE MINIMUM 3 VIEWS Julio Kumari PA-C [address] [place] [address] Xr Imaging Referral ID Status Reason Start Date Expiration Date Visits Requested Visits Authorized [id number] Pending Review Auto-Generat ed Referral 11/23/2021 12/23/2022 1 1 * Diagnostic Procedure Only (Routine) - Pending Review Specialty Diagnoses / Procedures Referred By Contac t Referred To Contact XR IMAGING Diagnoses Acquired cavovarus deformity of foot, right Procedures XR FOOT GENERAL 3V AP/LAT/OBL RIGHT RADEX FOOT COMPLETE MINIMUM 3 VIEWS Julio Kumari PA-C [address] [place] [address] Xr Imaging Referral ID Status Reason Start Date Expiration Date Visits Requested Visits Authorized [id number] Pending Review Auto-Generat ed Referral 11/23/2021 12/23/2022 1 1 [facility] for referral (narrative)* Diagnostic Procedure Only (Routine) - Authorized Specialty Diagnoses / Procedures Referred By Contac t Referred To Contact XR IMAGING Diagnoses Right ankle pain, unspecified chronicity Procedures XR ANKLE GENERAL 3V AP/LAT/OBL RIGHT RADEX ANKLE COMPLETE MINIMUM 3 VIEWS Milla Soto MD [address] [place] [address] Xr Imaging Referral ID Status Reason Start Date Expiration Date Visits Requested Visits Authorized [id number] Authorized Auto-Generat ed Referral 01/05/2022 02/04/2023 1 1 * - Pending Review Specialty Diagnoses / Procedures Referred By Contac t Referred To Contact Physical Therapy Diagnoses Right ankle pain, unspecified chronicity Procedures CONSULT TO PHYSICAL THERAPY Milla Soto MD [address] [facility] [place] [address] Referral ID Status Reason Start Date Expiration Date V isits Requested Visits Authorized [id number] Pending Review 01/05/2022 04/05/2022 1 1 * Diagnostic Procedure Only (Routine) - Closed Specialty Diagnoses / Procedures Referred By Contac t Referred To Contact XR IMAGING Diagnoses Right ankle pain, unspecified chronicity Procedures XR FOOT GENERAL 3V AP/LAT/OBL RIGHT RADEX FOOT COMPLETE MINIMUM 3 VIEWS Ofelia Clay PA-C [address] [place] [address] Xr Imaging Referral ID Status Reason Start Date Expiration Date V isits Requested Visits Authorized [id number] Closed Auto-Generate d Referral 01/05/2022 02/04/2023 1 1 [facility] for referral (narrative)* Diagnostic Procedure Only (Routine) - Pending Review Specialty Diagnoses / Procedures Referred By Contac t Referred To Contact XR IMAGING Diagnoses Acquired cavovarus deformity of foot, right Procedures XR ANKLE GENERAL 3V AP/LAT/OBL RIGHT RADEX ANKLE COMPLETE MINIMUM 3 VIEWS Milla Soto MD [address] [place] [phone] Xr Imaging Referral ID Status Reason Start Date Expiration Date Visits Requested Visits Authorized [id number] Pending Review Auto-Generat ed Referral 04/05/2023 1 1 * - Pending Review Specialty Diagnoses / Procedures Referred By Contac t Referred To Contact Physical Therapy Diagnoses Acquired cavovarus deformity of foot, right Procedures CONSULT TO PHYSICAL THERAPY Milla Soto MD [address] [facility] [place] [phone] Referral ID Status Reason Start Date Expiration Date V isits Requested Visits Authorized [id number] Pending Review 03/06/2022 06/04/2022 1 1 * Diagnostic Procedure Only (Routine) - Pending Review Specialty Diagnoses / Procedures Referred By Contac t Referred To Contact XR IMAGING Diagnoses Acquired cavovarus deformity of foot, right Procedures XR ANKLE GENERAL 3V AP/LAT/OBL RIGHT RADEX ANKLE COMPLETE MINIMUM 3 VIEWS Milla Soto MD [address] [place] [address] Xr Imaging Referral ID Status Reason Start Date Expiration Date Visits Requested Visits Authorized [id number] Pending Review Auto-Generat ed Referral 2 04/05/2023 1 1 [facility] for referral (narrative)* - Pending Review Specialty Diagnoses / Procedures Referred By Contac t Referred To Contact Physical Therapy Diagnoses Acquired cavovarus deformity of foot, right Procedures CONSULT TO PHYSICAL THERAPY Milla Soto MD [address] [place] [address] Referral ID Status Reason Start Date Expiration Date V isits Requested Visits Authorized [id number] Pending Review 06/08/2022 09/06/2022 1 1 [facility] for referral (narrative)* Diagnostic Procedure Only (Routine) - Closed Specialty Diagnoses / Procedures Referred By Contac t Referred To Contact XR IMAGING Diagnoses Acquired cavovarus deformity of foot, right Procedures XR ANKLE GENERAL 3V AP/LAT/OBL RIGHT RADEX ANKLE COMPLETE MINIMUM 3 VIEWS Milla Soto MD [address] [place] [address] Xr Imaging [facility] Referral ID Status Reason Start Date Expiration Date V isits Requested Visits Authorized [id number] Closed Auto-Generate d Referral 03/06/2022 04/05/2023 1 1 [facility] for referral (narrative)* Diagnostic Procedure Only (Routine) - Closed Specialty Diagnoses / Procedures Referred By Contac t Referred To Contact XR IMAGING Diagnoses Right ankle pain, unspecified chronicity Procedures XR FOOT GENERAL 3V AP/LAT/OBL RIGHT RADEX FOOT COMPLETE MINIMUM 3 VIEWS Ofelia Clay PA-C [address] [place] [phone] Xr Imaging [facility] Referral ID Status Reason Start Date Expiration Date V isits Requested Visits Authorized [id number] Closed Auto-Generate d Referral 01/05/2022 02/04/2023 1 1 [facility] for referral (narrative)* Diagnostic Procedure Only (Routine) - Closed Specialty Diagnoses / Procedures Referred By Contac t Referred To Contact XR IMAGING Diagnoses Right ankle pain, unspecified chronicity Procedures XR FOOT GENERAL 3V AP/LAT/OBL RIGHT RADEX FOOT COMPLETE MINIMUM 3 VIEWS Milla Soto MD [address] [place] [phone] [place] [address] Referral ID Status Reason Start Date Expiration Date V isits Requested Visits Authorized [id number] Closed Auto-Generate d Referral 03/01/2022 03/31/2023 1 1 * Diagnostic Procedure Only (Routine) - Closed Specialty Diagnoses / Procedures Referred By Contac t Referred To Contact XR IMAGING Diagnoses Right ankle pain, unspecified chronicity Procedures XR ANKLE GENERAL 3V AP/LAT/OBL RIGHT RADEX ANKLE COMPLETE MINIMUM 3 VIEWS Milla Soto MD [address] [place] [address] Xr Imaging [place] [address] Referral ID Status Reason Start Date Expiration Date V isits Requested Visits Authorized [id number] Closed Auto-Generate d Referral 01/05/2022 02/04/2023 1 1 [facility] for referral (narrative)* Diagnostic Procedure Only (Routine) - Closed Specialty Diagnoses / Procedures Referred By Contac t Referred To Contact XR IMAGING Diagnoses Acquired cavovarus deformity of foot, right Procedures XR ANKLE GENERAL 3V AP/LAT/OBL RIGHT RADEX ANKLE COMPLETE MINIMUM 3 VIEWS Julio Kumari PA-C [address] [place] [address] Xr Imaging [place] [address] Referral ID Status Reason Start Date Expiration Date V isits Requested Visits Authorized [id number] Closed Auto-Generate d Referral 11/23/2021 12/23/2022 1 1 * Diagnostic Procedure Only (Routine) - Closed Specialty Diagnoses / Procedures Referred By Contac t Referred To Contact XR IMAGING Diagnoses Acquired cavovarus deformity of foot, right Procedures XR FOOT GENERAL 3V AP/LAT/OBL RIGHT RADEX FOOT COMPLETE MINIMUM 3 VIEWS Julio Kumari PA-C [address] [place] [phone] [place] [address] Referral ID Status Reason Start Date Expiration Date V isits Requested Visits Authorized [id number] Closed Auto-Generate d Referral 11/23/2021 12/23/2022 1 1 [facility] for referral (narrative)* Diagnostic Procedure Only (Routine) - Closed Specialty Diagnoses / Procedures Referred By Contac t Referred To Contact XR IMAGING Diagnoses Acquired cavovarus deformity of foot, right Procedures XR ANKLE GENERAL 3V AP/LAT/OBL RIGHT RADEX ANKLE COMPLETE MINIMUM 3 VIEWS Milla Soto MD [address] [place] [phone] [place] [address] Referral ID Status Reason Start Date Expiration Date V isits Requested Visits Authorized [id number] Closed Auto-Generate d Referral 10/13/2021 11/12/2022 1 1 * Diagnostic Procedure Only (Routine) - Closed Specialty Diagnoses / Procedures Referred By Contac t Referred To Contact XR IMAGING Diagnoses Acquired cavovarus deformity of foot, right Procedures XR FOOT GENERAL 3V AP/LAT/OBL RIGHT RADEX FOOT COMPLETE MINIMUM 3 VIEWS Milla Soto MD [address] [place] [address] [place] [address] Referral ID Status Reason Start Date Expiration Date V isits Requested Visits Authorized [id number] Closed Auto-Generate d Referral 10/13/2021 11/12/2022 1 1 [facility] for referral (narrative)* Diagnostic Procedure Only (Routine) - Closed Specialty Diagnoses / Procedures Referred By Contac t Referred To Contact XR IMAGING Diagnoses Pain in joint involving right ankle and foot Procedures XR FOOT GENERAL 3V AP/LAT/OBL RIGHT RADEX FOOT COMPLETE MINIMUM 3 VIEWS Milla Soto MD [address] [place] [address] [place] [address] Referral ID Status Reason Start Date Expiration Date V isits Requested Visits Authorized [id number] Closed Auto-Generate d Referral 07/28/2021 08/27/2022 1 1 * Diagnostic Procedure Only (Routine) - Closed Specialty Diagnoses / Procedures Referred By Contac t Referred To Contact XR IMAGING Diagnoses Pain in joint involving right ankle and foot Procedures XR ANKLE GENERAL 3V AP/LAT/OBL RIGHT RADEX ANKLE COMPLETE MINIMUM 3 VIEWS Milla Soto MD [address] [place] [address] Xr Imaging [place] [address] Referral ID Status Reason Start Date Expiration Date V isits Requested Visits Authorized [id number] Closed Auto-Generate d Referral 07/28/2021 08/27/2022 1 1 [facility] for referral (narrative)No reason for referral information availableWCleveland Clinic [facility]* Diagnostic Procedure Only (Routine) - Closed Specialty Diagnoses / Procedures Referred By Contac t Referred To Contact XR IMAGING Diagnoses Acquired cavovarus deformity of foot, right Procedures XR ANKLE GENERAL 3V AP/LAT/OBL RIGHT RADEX ANKLE COMPLETE MINIMUM 3 VIEWS Milla Soto MD [address] [facility] [facility] [place] [address] Xr Imaging [place] [address] Referral ID Status Reason Start Date Expiration Date V isits Requested Visits Authorized [id number] Closed Auto-Generate d Referral 03/06/2022 04/05/2023 1 1 [facility] for visit Narrative* Diagnostic Procedure Only (Routine) - Closed Specialty Diagnoses / Procedures Referred By Contac t Referred To Contact XR IMAGING Diagnoses Pain in joint involving right ankle and foot Peroneal tendinitis of right lower extremity Procedures XR CALCANEUS 2V AXIAL/LAT RIGHT RADEX CALCANEUS MINIMUM 2 VIEWS Milla Soto MD [address] [facility] [place] [phone] Xr Imaging [facility] Referral ID Status Reason Start Date Expiration Date V isits Requested Visits Authorized [id number] Closed Auto-Generate d Referral 07/28/2021 08/27/2022 1 1 [facility] Summary Purpose Family History No Family History Records FoundNo Family History Records FoundNo Family History Records FoundNo Family History Records FoundNo Family History Records Found Advance Directives No Advanced Directives Records Found Advance Directive Response Recorded Date/ Time Living Will No May 03 11:13am Power of Mechanical Lead No May 03, 2019 11:13am Documents on File Type Date Recorded 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 Advance Directive(s) 08/04/2021 6:27 AM Advance Directive(s) 07/29/2021 9:33 AM Documents on File Type Date Recorded 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 Advance Directive(s) 08/04/2021 6:27 AM Advance Directive(s) 07/29/2021 9:33 AM Documents on File Type Date Recorded 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 Advance Directive(s) 09/06/2021 5:58 PM Advance Directive(s) 08/04/2021 6:27 AM Advance Directive(s) 07/29/2021 9:33 AM Documents on File Type Date Recorded 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 No March 09, 2024 1:06am Living Will No May 10 2:44am Do you have a Healthcare Power of Mechanical Lead? No May 10, 2024 2:44am Living Will No April 09 1:09am Do you have a Healthcare Power of Mechanical Lead? No April 09, 2024 1:09am Living Will No June 07, 2024 2:07am Do you have a Healthcare Power of Mechanical Lead? No June 07, 2024 2:07am Advance Directive Response Recorded Date/ Time Living Will No May 10 2:44am Do you have a Healthcare Power of Mechanical Lead? No May 10, 2024 2:44am Living Will No July 08, 2024 12:44am Do you have a Healthcare Power of Mechanical Lead? No July 08, 2024 12:44am Living Will No June 07, 2024 2:07am Do you have a Healthcare Power of Mechanical Lead? No June 07, 2024 2:07am Advance Directive Response Recorded Date/ Time Living Will No May 10 2:44am Do you have a Healthcare Power of Mechanical Lead? No May 10, 2024 2:44am Living Will No July 08, 2024 12:44am Do you have a Healthcare Power of Mechanical Lead? No July 08, 2024 12:44am Living Will No June 07, 2024 2:07am Do you have a Healthcare Power of Mechanical Lead? No June 07, 2024 2:07am Living Will No August 07, 2024 12 :16am Do you have a Healthcare Power of Mechanical Lead? No August 07, 2024 12:16am Chief Complaint and Reason for Visit Chief Complaint BILATERAL TIBIAL DEF / LOWER EXT SCANOGRAM S/P PERONEAL TENDON DEBRIDE REPAIR/RX HERE Chief Complaint S/P PERONEAL TENDON DEBRIDE REPAIR/RX HERE Chief Complaint GAIT, BALANCE PATIEN T HAS RX Chief Complaint GAIT, BALANCE PATIEN T HAS RX OBESITY Chief Complaint OBESITY OBESITY OBESITY OBESITY Chief Complaint OBESITY OBESITY OBESITY Chief Complaint Admit Date OBESITY March 27, 2024 10:51am OBESITY April 15, 2024 10 :59am OBESITY May 15, 2024 1 0:57am OBESITY June 09, 2024 11:3 3am Chief Complaint Admit Date OBESITY May 15, 2024 1 0:57am OBESITY June 09, 2024 11:3 3am OBESITY July 17, 2024 10: 26am ST/SINUS COMPLAINT September 03, 2024 5:34p m Chief Complaint Admit Date OBESITY May 15, 2024 1 0:57am OBESITY June 09, 2024 11:3 3am OBESITY July 17, 2024 10: 26am OBESITY August 21, 2024 10:[address]/SINUS COMPLAINT September 03, 2024 5:34p m Reason for Referral Specialty Diagnoses / Procedures Referred By Contac t Referred To Contact MR IMAGING Diagnoses Peroneal tendinitis of right lower extremity Procedures MRI ANKLE WO IVCON RT MRI ANY JT LOWER EXTREM W/O CONTRAST Milla Rabago MD [address] [place] [address] Mr Imaging Referral ID Status Reason Start Date Expiration Date V isits Requested Visits Authorized [id number] Closed Auto-Generate d Referral 07/28/2021 08/27/2022 1 1 Health Concerns Infection Onset Date Last Indicated Resolved Time COVID-19 Rule-Out 09/20/2021 09/20/2021 09/22/2021 3:12 PM EDT Additional Source Comments (unrecognized sect ion and content) No Status Records FoundNo Status Records FoundNo Status Records FoundNo Status Records FoundNo Status Records Found INFORMATION SOURCE (unrecogn ized section and content) DATE CREATED AUTHOR 07/22/2020 [facility] DATE CREATED AUTHOR AUTHOR'S ORGANIZ ATION 08/12/2020 [facility] DATE CREATED AUTHOR AUTHOR'S ORGANIZ ATION 06/26/2021 [facility] DATE CREATED AUTHOR AUTHOR'S ORGANIZ ATION 06/09/2022 [facility] DATE CREATED AUTHOR AUTHOR'S ORGANIZ ATION 09/09/2024 [facility] Source Comments (unrecognize d section and content) In the event this informatio n is protected by the Federal Confidentiality of Alcohol and Drug Abuse Patient Records regulations: The Federal rules restrict any use of the information to criminally investigate or prosecute any alcohol or drug abuse patient.[facility] HealthIn the event this information is protected by the Federal Confidentiality of Alcohol and Drug Abuse Patient Records regulations: The Federal rules restrict any use of the information to criminally investigate or prosecute any alcohol or drug abuse patient.[facility] HealthIn the event this information is protected by the Federal Confidentiality of Alcohol and Drug Abuse Patient Records regulations: The Federal rules restrict any use of the information to criminally investigate or prosecute any alcohol or drug abuse patient.[facility] HealthIn the event this information is protected by the Federal Confidentiality of Alcohol and Drug Abuse Patient Records regulations: The Federal rules restrict any use of the information to criminally investigate or prosecute any alcohol or drug abuse patient.[facility] HealthIn the event this information is protected by the Federal Confidentiality of Alcohol and Drug Abuse Patient Records regulations: The Federal rules restrict any use of the information to criminally investigate or prosecute any alcohol or drug abuse patient.[facility] HealthIn the event this information is protected by the Federal Confidentiality of Alcohol and Drug Abuse Patient Records regulations: The Federal rules restrict any use of the information to criminally investigate or prosecute any alcohol or drug abuse patient.[facility] HealthIn the event this information is protected by the Federal Confidentiality of Alcohol and Drug Abuse Patient Records regulations: The Federal rules restrict any use of the information to criminally investigate or prosecute any alcohol or drug abuse patient.[facility] HealthIn the event this information is protected by the Federal Confidentiality of Alcohol and Drug Abuse Patient Records regulations: The Federal rules restrict any use of the information to criminally investigate or prosecute any alcohol or drug abuse patient.[facility] HealthIn the event this information is protected by the Federal Confidentiality of Alcohol and Drug Abuse Patient Records regulations: The Federal rules restrict any use of the information to criminally investigate or prosecute any alcohol or drug abuse patient.[facility] HealthIn the event this information is protected by the Federal Confidentiality of Alcohol and Drug Abuse Patient Records regulations: The Federal rules restrict any use of the information to criminally investigate or prosecute any alcohol or drug abuse patient.[facility] HealthIn the event this information is protected by the Federal Confidentiality of Alcohol and Drug Abuse Patient Records regulations: The Federal rules restrict any use of the information to criminally investigate or prosecute any alcohol or drug abuse patient.[facility] HealthIn the event this information is protected by the Federal Confidentiality of Alcohol and Drug Abuse Patient Records regulations: The Federal rules restrict any use of the information to criminally investigate or prosecute any alcohol or drug abuse patient.[facility] HealthIn the event this information is protected by the Federal Confidentiality of Alcohol and Drug Abuse Patient Records regulations: The Federal rules restrict any use of the information to criminally investigate or prosecute any alcohol or drug abuse patient.[facility] HealthIn the event this information is protected by the Federal Confidentiality of Alcohol and Drug Abuse Patient Records regulations: The Federal rules restrict any use of the information to criminally investigate or prosecute any alcohol or drug abuse patient.[facility] HealthIn the event this information is protected by the Federal Confidentiality of Alcohol and Drug Abuse Patient Records regulations: The Federal rules restrict any use of the information to criminally investigate or prosecute any alcohol or drug abuse patient.[facility] HealthIn the event this information is protected by the Federal Confidentiality of Alcohol and Drug Abuse Patient Records regulations: The Federal rules restrict any use of the information to criminally investigate or prosecute any alcohol or drug abuse patient.[facility] HealthIn the event this information is protected by the Federal Confidentiality of Alcohol and Drug Abuse Patient Records regulations: The Federal rules restrict any use of the information to criminally investigate or prosecute any alcohol or drug abuse patient.[facility] HealthIn the event this information is protected by the Federal Confidentiality of Alcohol and Drug Abuse Patient Records regulations: The Federal rules restrict any use of the information to criminally investigate or prosecute any alcohol or drug abuse patient.[facility] HealthIn the event this information is protected by the Federal Confidentiality of Alcohol and Drug Abuse Patient Records regulations: The Federal rules restrict any use of the information to criminally investigate or prosecute any alcohol or drug abuse patient.[facility] HealthIn the event this information is protected by the Federal Confidentiality of Alcohol and Drug Abuse Patient Records regulations: The Federal rules restrict any use of the information to criminally investigate or prosecute any alcohol or drug abuse patient.Wilson HealthIn the event this information is protected by the Federal Confidentiality of Alcohol and Drug Abuse Patient Records regulations: The Federal rules restrict any use of the information to criminally investigate or prosecute any alcohol or drug abuse patient.[facility] HealthIn the event this information is protected by the Federal Confidentiality of Alcohol and Drug Abuse Patient Records regulations: The Federal rules restrict any use of the information to criminally investigate or prosecute any alcohol or drug abuse patient.[facility] HealthIn the event this information is protected by the Federal Confidentiality of Alcohol and Drug Abuse Patient Records regulations: The Federal rules restrict any use of the information to criminally investigate or prosecute any alcohol or drug abuse patient.Wilson HealthIn the event this information is protected by the Federal Confidentiality of Alcohol and Drug Abuse Patient Records regulations: The Federal rules restrict any use of the information to criminally investigate or prosecute any alcohol or drug abuse patient.[facility] Reason for Visit (unrecogniz ed section and content) Reason Comments New Pain Reason Comments Follow Up Post Op Reason Comments Radiology MRI RT ANKLE W/O Specialty Diagnoses / Procedures Referred By Contac t Referred To Contact MR IMAGING Diagnoses Peroneal tendinitis of right lower extremity Procedures MRI ANKLE WO IVCON RT MRI ANY JT LOWER EXTREM W/O CONTRAST MATRL Milla Soto MD [address] [place] [address] Mr Imaging Referral ID Status Reason Start Date Expiration Date V isits Requested Visits Authorized [id number] Closed Auto-Generate d Referral 07/28/2021 08/27/2022 1 1 Reason Comments Follow Up Reason Comments Pre-Op Exam Reason Comments PreOp Call labs ordered Reason Comments Established Patient Follow Up Post Op Reason Comments Recheck Reason Comments Patient Update Calling for patient update Reason Comments Post Op Reason Comments Follow Up Reason Comments Refill Request Reason Comments Follow Up Pain Reason Comments Follow Up Reason Comments Radio Gen RMP Specialty Diagnoses / Procedures Referred By Contac t Referred To Contact XR IMAGING Diagnoses Right ankle pain, unspecified chronicity Procedures XR FOOT GENERAL 3V AP/LAT/OBL RIGHT RADEX FOOT COMPLETE MINIMUM 3 VIEWS Ofelia Clay PA-C [address] [place] [address] [facility] [place] [address] Referral ID Status Reason Start Date Expiration Date V isits Requested Visits Authorized [id number] Closed Auto-Generate d Referral 01/05/2022 02/04/2023 1 1 Reason Comments Radio Gen RMP Specialty Diagnoses / Procedures Referred By Contac t Referred To Contact XR IMAGING Diagnoses Right ankle pain, unspecified chronicity Procedures XR ANKLE GENERAL 3V AP/LAT/OBL RIGHT RADEX ANKLE COMPLETE MINIMUM 3 VIEWS Milla Soto MD [address] [place] [address] [facility] [place] [address] Referral ID Status Reason Start Date Expiration Date V isits Requested Visits Authorized [id number] Closed Auto-Generate d Referral 01/05/2022 02/04/2023 1 1 Specialty Diagnoses / Procedures Referred By Contac t Referred To Contact XR IMAGING Diagnoses Acquired cavovarus deformity of foot, right Procedures XR FOOT GENERAL 3V AP/LAT/OBL RIGHT RADEX FOOT COMPLETE MINIMUM 3 VIEWS Julio Kumari PA-C [address] [place] [address] [place] [address] Referral ID Status Reason Start Date Expiration Date V isits Requested Visits Authorized [id number] Closed Auto-Generate d Referral 11/23/2021 12/23/2022 1 1 Specialty Diagnoses / Procedures Referred By Contac t Referred To Contact XR IMAGING Diagnoses Acquired cavovarus deformity of foot, right Procedures XR ANKLE GENERAL 3V AP/LAT/OBL RIGHT RADEX ANKLE COMPLETE MINIMUM 3 VIEWS Milla Soto MD [address] [id number] [place] [address] Referral ID Status Reason Start Date Expiration Date V isits Requested Visits Authorized [id number] Closed Auto-Generate d Referral 10/13/2021 11/12/2022 1 1 Specialty Diagnoses / Procedures Referred By Contac t Referred To Contact XR IMAGING Diagnoses Pain in joint involving right ankle and foot Procedures XR FOOT GENERAL 3V AP/LAT/OBL RIGHT RADEX FOOT COMPLETE MINIMUM 3 VIEWS Milla Soto MD [address] [phone] [place] [address] Referral ID Status Reason Start Date Expiration Date V isits Requested Visits Authorized [id number] Closed Auto-Generate d Referral 07/28/2021 08/27/2022 1 1 Care Teams (unrecognized sec tion and content) [employer] Relationship Specialty Start Date End Date Sal Arceo MD [address] [place], [place] [id number] PCP - General Family Practice 07/28/21 [employer] Relationship Specialty Start Date End Date Sal Arceo MD [address] [facility] [place] [id number] PCP - General Family Practice 07/28/21 [employer] Relationship Specialty Start Date End Date Sal Arceo MD [address] [facility] [place] [phone] PCP - General Family Practice 07/28/21 [employer] Relationship Specialty Start Date End Date Sal Arceo MD [address] [place] [address] PCP - General Family Practice 07/28/21 [employer] Relationship Specialty Start Date End Date Sal Arceo MD [address] [place] [address] PCP - General Family Practice 07/28/21 [employer] Relationship Specialty Start Date End Date Sal Arceo MD [address] [place] [address] PCP - General Family Practice 07/28/21 [employer] Relationship Specialty Start Date End Date Sal Arceo MD [address] [place] [address] PCP - General Family Practice 07/28/21 [employer] Relationship Specialty Start Date End Date Sal Arceo MD [address] [place] [address] PCP - General Family Practice 07/28/21 [employer] Relationship Specialty Start Date End Date Sal Arceo MD [address] [place] [address] PCP - General Family Practice 07/28/21 [employer] Relationship Specialty Start Date End Date Sal Arceo MD [address] [place] [address] PCP - General Family Practice 07/28/21 [employer] Relationship Specialty Start Date End Date Sal Arceo MD [address] [facility] [address] PCP - General Family Practice 07/28/21 [employer] Relationship Specialty Start Date End Date Sal Arceo MD [address] [facility] [place] [address] PCP - General Family Medicine 07/28/21 [employer] Relationship Specialty Start Date End Date Sal Arceo MD [address] [facility], [place] [phone] PCP - General Family Medicine 07/28/21 [employer] Relationship Specialty Start Date End Date Sal Arceo MD [address] [facility] [place] [place] [id number] PCP - General Family Medicine 07/28/21 [employer] Relationship Specialty Start Date End Date Sal Arceo MD [facility] [place] [address] PCP - General Family Medicine 07/28/21 Team Status: Active Member Role Status Dates Dr. Ayla Rodriguez MD Family Provider Active Dr. Awais Acreo MD Primary Care Provider Activ e Team Status: Inactive Member Role Status Dates Dr. Awais Arceo MD Primary Care Provider Activ e CHARLES LOYOLA Attending Provider, Referring Provider Active Team Status: Inactive Member Role Status Dates Dr. Awais Arceo MD Primary Care Provider, Atte nding Provider Active Team Status: Inactive Member Role Status Dates Dr. Awais Arceo MD Primary Care Provider, Attending Provider, Referring Provider Active Team Status: Active Member Role Status Dates Dr. Ayla Rodriguez MD Family Provider Active Dr. Sal Arceo MD Primary Care Provider Acti ve Team Status: Inactive Member Role Status Dates Dr. Sal Arceo MD Primary Care Provider, Attending Provider, Referring Provider Active [employer] Relationship Specialty Start Date End Date Sal Arceo MD [address] [place], [place] [id number] PCP - General Family Medicine 07/28/21 [employer] Relationship Specialty Start Date End Date Sal Arceo MD [address] [place], [place] [phone] PCP - General Family Medicine 07/28/21 [employer] Relationship Specialty Start Date End Date Sal Arceo MD [address] [place], [place] [address] PCP - General Family Medicine 07/28/21 [employer] Relationship Specialty Start Date End Date Sal Arceo MD [address] [place] [address] PCP - General Family Medicine 07/28/21 [employer] Relationship Specialty Start Date End Date Sal Arceo MD [address] [place] [address] PCP - General Family Medicine 07/28/21 [employer] Relationship Specialty Start Date End Date Sal Arceo MD [address] [place] [address] PCP - General Family Medicine 07/28/21 Team Status: Active Member Role Status Dates Dr. Sal Arceo MD Primary Care Provider Acti ve Team Status: Inactive Member Role Status Dates Dr. Sal Arceo MD Primary Care Provider Acti ve Start: March 27, 2024 End: April 08, 2024 Dr. Sal Arceo MD Attending Provider Active Start: March 27, 2024 End: April 08, 2024 Dr. Sal Arceo MD Referring Provider Active Start: March 27, 2024 End: April 08, 2024 Team Status: Inactive Member Role Status Dates Dr. Sal Arceo MD Primary Care Provider Acti ve Start: April 15, 2024 End: May 09, 2024 Dr. Sal Arceo MD Attending Provider Active Start: April 15, 2024 End: May 09, 2024 Dr. Sal Arceo MD Referring Provider Active Start: April 15, 2024 End: May 09, 2024 Team Status: Inactive Member Role Status Dates Dr. Sal Arceo MD Primary Care Provider Acti ve Start: May 15, 2024 End: June 06, 2024 Dr. Sal Arceo MD Attending Provider Active Start: May 15, 2024 End: June 06, 2024 Dr. Sal Arceo MD Referring Provider Active Start: May 15, 2024 End: June 06, 2024 Team Status: Inactive Member Role Status Dates Dr. Sal Arceo MD Primary Care Provider Acti ve Start: June 09, 2024 End: July 07, 2024 Dr. Sal Arceo MD Attending Provider Active Start: June 09, 2024 End: July 07, 2024 Dr. Sal Arceo MD Referring Provider Active Start: June 09, 2024 End: July 07, 2024 Team Status: Inactive Member Role Status Dates Dr. Sal Arceo MD Primary Care Provider Acti ve Start: July 17, 2024 End: August 06, 2024 Dr. Sal Arceo MD Attending Provider Active Start: July 17, 2024 End: August 06, 2024 Dr. Sal Arceo MD Referring Provider Active Start: July 17, 2024 End: August 06, 2024 Team Status: Inactive Member Role Status Dates Dr. Sal Arceo MD Primary Care Provider Acti ve Start: September 03, 2024 End: September 03, 2024 Dr. Sal Arceo MD Referring Provider Active Start: September 03, 2024 End: September 03, 2024 Jarrod Curtis PA, PA Attending Provider Active Start: September 03, 2024 End: September 03, 2024 Team Status: Inactive Member Role Status Dates Dr. Sal Arceo MD Primary Care Provider Acti ve Start: August 21, 2024 End: September 08, 2024 Dr. Sal Arceo MD Attending Provider Active Start: August 21, 2024 End: September 08, 2024 Dr. Sal Arceo MD Referring Provider Active Start: August 21, 2024 End: September 08, 2024 Goals (unrecognized section and content) Goals may be documented in a n alternate sectionGoals may be documented in an alternate sectionGoals may be documented in an alternate sectionGoals may be documented in an alternate sectionGoals may be documented in an alternate sectionGoals may be documented in an alternate sectionGoals may be documented in an alternate sectionGoals may be documented in an alternate sectionGoals may be documented in an alternate sectionGoals may be documented in an alternate sectionGoals may be documented in an alternate sectionGoals may be documented in an alternate sectionGoals may be documented in an alternate sectionGoals may be documented in an alternate sectionGoals may be documented in an alternate section FOR RECORDS PERTAINING TO PATIENTS WHO ARE OR HAVE BEEN ENROLLED IN A CHEMICAL DEPENDENCY/SUBSTANCEABUSE PROGRAM, SOME INFORMATION MAY BE OMITTED. This clinical summary was aggregated from multiple sources. Caution should be exercised in using it in the provision of clinical care. This summary normalizes information from multiple sources, and as a consequence, information in this document may materially change the coding, format and clinical context of patient data. In addition, data may be omitted in some cases. CLINICAL DECISIONS SHOULD BE BASED ON THE PRIMARY CLINICAL RECORDS. [facility]. provides no warranty or guarantee of the accuracy or completeness of information in this document.
== END | disposition home or self-care (01) ==
LOC: MFPLAB 09:38
PROVIDERS: PCP Family Medicine; Referring Provider Family Medicine; Visit Provider Family Medicine
DX: E78.00 Pure hypercholesterolemia, unspecified (principal)
CPT/HCPCS: 36415; 80061

== ENCOUNTER → 2024-10-06 | Outpatient (CLI) | payer OTHER, SELFPAY ==
--- NOTE | 2024-10-06 12:44 | RAD_ITS ---
PROCEDURE: L/S SPINE W BEND MIN 6 VW 10/06/2024 REASON FOR EXAM: PAIN IN LB WITH RADIATION TO R KNEE TECHNIQUE: L/S SPINE W BEND MIN 6 VW 6 views total COMPARISON: None FINDINGS: There is anatomic alignment of the lumbar spine in the lateral view from L1-L5. There is a bilateral pars defect and grade 1 spondylolisthesis noted at L5/S1. Disc space narrowing noted throughout the lumbar spine most pronounced at L5/S1. Small anterior and posterior spurs noted throughout the lumbar spine. No instability noted on flexion or extension views however range of motion of the limited RAD/L/S Spine w Bend Min 6 Vw IMPRESSION: Bilateral pars defect with grade 1 spondylolisthesis at L5/S1 without instabili ty Multilevel degenerative changes, no acute findings Reading Location: [id number]
--- NOTE | 2024-10-06 12:50 | RAD_ITS ---
PROCEDURE: KNEE 4 OR MORE VIEWS 10/06/2024 REASON FOR EXAM: RIGHT KNEE PAIN TECHNIQUE: KNEE 4 OR MORE VIEWS COMPARISON: None FINDINGS: Bones: No fracture. No suspicious bone lesion. Joints: Mild tricompartmental arthrosis Effusion: No effusion. Soft tissues: Soft tissues are unremarkable. Other: RAD/Knee 4 or More Views IMPRESSION: Mild tricompartmental arthrosis no demonstrated fracture or suspicious osseous lesion Reading Location: [id number]
== END | disposition home or self-care (01) ==
LOC: MTRAD 12:44
PROVIDERS: PCP Family Medicine; Referring Provider Family Medicine; Visit Provider Family Medicine
DX: E78.5 Hyperlipidemia, unspecified (principal); M54.41 Lumbago with sciatica, right side
CPT/HCPCS: 72114; 73564

== ENCOUNTER 2024-10-09 12:15 | Outpatient (RCR) | payer OTHER, SELFPAY | END 2024-11-06 23:59 | LOC: NS 12:15 | PROVIDERS: PCP Family Medicine; Referring Provider Family Medicine; Visit Provider Family Medicine | DX: Z71.3 Dietary counseling and surveillance (principal); E66.9 Obesity, unspecified; Z68.35 Body mass index [BMI] 35.0-35.9, adult | CPT/HCPCS: 97803 ==

== ENCOUNTER 2024-10-27 11:30 | Outpatient (RCR) | payer OTHER, SELFPAY ==
--- NOTE | 2024-10-20 11:04 | HP.PTEVAL_ITS ---
Patient's Visit Information Visit Information Visit Information: SAL PADILLA is a 54 year old M referred to Physical Therapy by Dr. Sal Arceo MD with a diagnosis of LBP with R LE sciatica. Date of Evaluation: 10/20/24 Physical Therapist: Angelo Tucker, PT, ATC Visit Plan Frequency: 2x /Week Duration: 1 Week Plan: Pt was issued SKTC/DKTC stretches. Issue and instruct pt on HEP of core strengthening over his next 2 visits. Subjective Subjective: Pt reports he has had LBP for a couple months now. pt reports his pain starts in the back and descends down his R LE. Pt describes the pain in his R LE as tingling and numbness. Pt reports his pain had an insidious onset in nature. Pt reports he had x-rays which revealed an old fracture likely from childhood. Pt notes the fracture is stable, but could be the source of his pain. Pt was told to try PT, and if that doesn't help, he will get an MRI. Pt reports just walking a lot will increase his pain. Pt reports he also gets pain from laying down, which results in sleep difficulty at this time. Pt notes he had R knee and ankle surgeries in the past, which has also altered his gait pattern. 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 Pt reports he is able to complete all of his ADL's and IADL's, he just has to be careful to pay attention to his body positioning. Pt reports LBP is 3/10 while sitting here at rest, 9/10 pain at worst. Pain LBP: Pain Intensity (Out of 10): 3 Pain Intensity Range: 9 Objective Objective: Neuro: B LE sensation is WNL to light touch. MMT: B LE's are equal and strong throughout. ROM: Pt is minimally limited with flex and ext. No pain with movements Repeated movements: RFIS 10x2 peripheralized sx's. DAPHNE 10x2 NE. REIL 10x1 peripheralized sx's. SKTC/DKTC 10 sec x 3 ea decreased pain Balance/Special Test Scores Oswestry Low Back Score: 14 Goals Goal 1:: Decrease LBP x 50% to aid with sleep Goal Time Frame: 2 Weeks Goal 2:: Decrease the frequency and intensity of R LE radiculopathy x 50% to aid with ambulation Goal Time Frame: 2 Weeks Goal 3:: I with HEP Goal Time Frame: 2 Weeks Rehabilitation Potential Physical Therapy Diagnosis: Pt has LBP, R LE sciatica, and difficulty with sleep secondary to degenerative changes in L/S Rehabilitation Potential: Good Anticipated Interventions Patient/Client Instruction: Educate patient on: Condition and Plan of Care For the Purpose of:: To improve self management Therapeutic Exercise to Include: Strength training, Endurance training, Body mechanics, Postural training, Active ROM and Dynamic Lumbar Stabilization For the Purpose of:: To decrease pain, To improve muscle performance and motor function and To increase tolerance to activity/condition/position Text: Thank you for the opportunity to evaluate your patient. For Medicare and Medicare HMO plans, please review the plan of care and approve it. It will need to be FAXED BACK to us at [phone] for Medicare purposes. For Medicare only, by signing this I certify the plan of care. Please let me know if there are questions or concerns regarding this plan of care. Physician Signatu re: Date:
--- NOTE | 2025-04-14 10:56 | HP.PT.NRP ---
Patient Information Patient Information: SAL PADILLA was seen in my office for initial evaluation on 10/20/24. The following Plan of Care was established for this patient: POC Established Initial Frequency: 2x /Week Initial Duration: 1 Week Anticipated Interventions Patient/Client Instruction: Educate patient on: Condition and Plan of Care For the Purpose of:: To improve self management Therapeutic Exercise to Include: Strength training, Endurance training, Body mechanics, Postural training, Active ROM and Dynamic Lumbar Stabilization For the Purpose of:: To decrease pain, To improve muscle performance and motor function and To increase tolerance to activity/condition/position Last Seen Last Seen: This patient was last seen in our office . Pertinent comments regarding their Physical therapy will appear below: Pt has not returned in greater than 30 days and is discontinued at this time At this point I will be discontinuing this patient from physical therapy. I would be happy to see this patient again in the future if found appropriate by the physician. Thank you! Angelo Tucker, PT, ATC Balance/Gait/Functional tests Balance/Special Test Scores Oswestry Low Back Score: 14
== END 2024-10-27 19:00 | disposition home or self-care (01) ==
LOC: PT 11:30
PROVIDERS: PCP Family Medicine; Referring Provider Family Medicine; Visit Provider Family Medicine
DX: M54.30 Sciatica, unspecified side (principal)
CPT/HCPCS: 97110; 97161

== ENCOUNTER → 2024-10-29 | Outpatient (CLI) | payer OTHER, SELFPAY ==
--- NOTE | 2024-10-29 07:10 | CT_ITS ---
PROCEDURE: LIMITED CHEST CT CARDIAC ONLY 10/29/2024 REASON FOR EXAM: HLD TECHNIQUE: LIMITED CHEST CT CARDIAC ONLY Coronal and Sagittal reconstruction series were provided One or more dose reduction techniques were used (e.g., Automated exposure control, adjustment of the mA and/or kV according to patient size, use of iterative reconstruction technique). RADIATION DOSE SUMMARY: CTDlvol: 12.19 mGy DLP: 290.42 mGycm COMPARISON: None. FINDINGS: No cardiomegaly. No aortic aneurysm. Minimal atherosclerotic calcifications of the coronary arteries. Mildly enlarged mediastinal lymph nodes, nonspecific, for example a prevascular lymph node measures 14 x 5 mm. No acute bony abnormalities. The visualized lungs are clear. CT/Limited Chest CT Cardiac Only IMPRESSION: Nonspecific small mediastinal lymph nodes. Minimal atherosclerotic calcifications of the coronary arteries. No cardiomega ly. Reading Location: [facility]
--- OUTSIDE RECORDS SUMMARY | 2024-10-29 07:17 | XMS RPT_ITS | CCD ---
Author Organization [facility] CliniSyhi Care Team Providers [employer] Supervisor Name Role Phone MARIELA HOFFMAN Admitting Unavailable [...] Consulting Unavailable JUDITH HOFFMAN DR Attending Unavailable JUDITH HOFFMAN DR Primary Care Unavailable PROVIDER, UNKNOWN [...] Referring Unavailable MILLA MCGILL Attending Unavailable VACCARIELLO, ALYA Purcell Primary Care Unavailable Sal Arceo MD Primary Care Provider Sal Arceo MD Primary Care Provider Sal Arceo MD Primary Care Provider Sal Arceo MD Primary Care Provider MILLA OSTO Referring Unavailable SAL ARCEO Primary Care Unavailabl e SAL ARCEO Primary Care Unavailabl e MILLA SOTO Referring Unavailable MILLA SOTO Attending Unavailable SAL ARCEO Primary Care Unavailabl MILLA Hewitt Referring Unavailable MILLA SOTO Attending Unavailable SAL ARCEO Primary Care Unavailabl e MILLA SOTO Referring Unavailable MILLA SOTO Attending Unavailable NABEEL, AYLA STEELE Referring Unavai lable VACCARIELLO, AYLA STEELE Primary Care Unavai lable VACCARIELLO, AYLA STEELE Primary Care Unavai lable MILLA SOTO Referring Unavailable MARIELOS [place] Primary Care Unavailabl e MILLA SOTO Referring Unavailable MARIELOS [place] Primary Care Unavailabl e MILLA SOTO Admitting Unavailable MILLA SOTO Attending Unavailable MILLA SOTO Attending Unavailable MILLA SOTO Admitting Unavailable MILLA SOTO Referring Unavailable MARIELOS [place] Primary Care Unavailabl e MILLA SOTO Referring Unavailable MARIELOS [place] Primary Care Unavailabl e MILLA SOTO Attending Unavailable MILLA SOTO Referring Unavailable MARIELOS [place] Primary Care [facility]abl [facility] Unavailabl e MILLA SOTO Attending Unavailable MILLA SOTO Referring Unavailable [facility] Care Unavailabl e MILLA SOTO Referring Unavailable MARIELOS [place] Primary Care Unavailabl e MILLA SOTO Attending Unavailable MILLA SOTO Referring Unavailable MILLA SOTO Referring Unavailable MILLA SOTO Attending Unavailable MARIELOS [place] Primary Care Unavailabl e MILLA SOTO Referring Unavailable MARIELOS [place] Primary Care Unavailabl e MARIELOS [place] Primary Care Unavailabl e MILLA SOTO Referring Unavailable [facility] Primary Care Unavailabl e MILLA SOTO Referring Unavailable MILLA SOTO Attending Unavailable MARIELOS [place] Primary Care Unavailabl e MILLA SOTO Referring Unavailable [facility] [place] [place] Primary Care Unavailabl e MARIELOS [place] Primary Care [facility]ailabl [facility] Primary Care Unavailabl e MILLA SOTO Referring Unavailable OFELIA CLAY Attending Unavailable [facility]ELOS [facility] Primary Care Unavailabl e MILLA SOTO Referring Unavailable SAL ARCEO B Primary Care Unavailabl MILLA Hewitt Referring Unavailable MARIELOS, SAL B Primary Care Unavailabl e MILLA SOTO Referring Unavailable MILLA SOTO Attending Unavailable Sal Arceo MD Primary Care Provider Marielos SAMUELS, Dr. Dueñas Primary Care Provider Marielos SAMUELS, Dr. Dueñas Attending Provider [phone] Marielos SAMUELS, Dr. Dueñas Referring Provider Marielos SAMUELS, Dr. Dueñas Primary Care Provider Marielos SAMUELS, Dr. Dueñas Attending Provider Marielos SAMUELS, Dr. Dueñas Referring Provider Jarrod Phillip Attending Provider Marielos SAMUELS, Dr. Dueñas Primary Care Provider Marielos SAMUELS, Dr. Dueñas Attending Provider Marielos SAMUELS, Dr. Dueñas Referring Provider Marielos SAMUELS, Dr. Dueñas Primary Care Provider Marielos SAMUELS, Dr. Dueñas Attending Provider Marielos SAMUELS, Dr. Dueñas Referring Provider [phone] Sal Arceo Referring Unavailable Ranney, Christopher Primary Care Unavailable Marielos Christmigueler Attending Unavailable Marielos Christopher Attending Unavailable Ranney, Christopher Referring Unavailable Ranney, Christopher Primary Care Unavailable Ranney, Christopher Attending Unavailable Ranney, Christopher Referring Unavailable Ranney, Christopher Primary Care Unavailable Ranney, Christopher Attending Unavailable Ranney, Christopher Primary Care Unavailable Ranney, Christopher Referring Unavailable Ranney, Christopher Primary Care Unavailable Ranney, Christopher Referring Unavailable Jarrod Phillip Attending Unavailable Ranney, Christopher Attending Unavailable Ranney, Christopher Primary Care Unavailable Ranney, Christopher Referring Unavailable Ranney, Christopher Attending Unavailable Ranney, Christopher Referring Unavailable Ranney, Christopher Primary Care Unavailable Ranney, Christopher Attending Unavailable Ranney, Christopher Referring Unavailable Sal Arceo Primary Care Unavailable Sal Arceo Attending Unavailable Marielos, Sal Referring Unavailable Sal Arceo Primary Care Unavailable Marielos, Sal Attending Unavailable Sal Arceo Referring Unavailable Marielos, Sal Primary Care Unavailable Marielos, Sal Attending Unavailable Marielos, Sal Primary Care Unavailable Ranjudy, Donopher Referring Unavailable Don Arceoophlaron Attending Unavailable Sal Arceo Primary Care Unavailable Sal Arceo Referring Unavailable Sal Arceo Attending Unavailable Marielos, Sal Primary Care Unavailable Sal Arceo Referring Unavailable Sal Arceo Primary Care Unavailable Marielos, Sal Attending Unavailable Sal Arceo Referring Unavailable Medications Current Medications Medication Drug [...] on above: Take 2 tablets by [facility] every 8 hours for 14 days. Take 2 tablets by [facility] every 8 hours for 28 days. acetaminophen 325 mg / oxyCODONE hydrochloride 5 mg oral tablet (17 sources) Opioid Agonist Start: 12-11-19 21 take 1-2 tablets by mouth every six hours as needed for pain Oxycodone-Acetaminop hen (Percocet) 5-325 mg tablet Active 1 - 2 {tbl} PO EVERY 6 HOURS as needed for pain 30 5 0 December 10, 2020 Pain in joint involving right ankle and foot Pain in right ankle and joints of right foot amoxicillin 875 mg oral tablet (4 sources) Penicillin-class Antibacterial Start: 09-04-19 25 take 1 tablet by mouth twice daily Amoxicillin 875 mg tablet Active 875 mg PO TWICE A DAY 20 0 September 03, 2024 12:00am apixaban 2.5 mg oral tablet (17 sources) Factor Xa Inhibitor Start: 12-11-19 take 1 tablet by mouth every twelve hours Apixaban (Eliquis) 2.5 mg tablet Active 2.5 mg PO Q12H 60 0 December 10, 2020 12:00am aspirin 325 mg oral tablet (17 sources) Platelet Aggregation Inhibitor, Nonsteroidal Anti-inflammatory Drug Start: 09-22-19 End: 10-21-19 take 1 tablet by mouth once daily aspirin 325 mg tablet Take 1 tablet by mouth once daily for 28 days. 28 tablet 09/21/2021 Active Comment on above: Take 1 tablet by [facility] once daily for 28 days. atorvastatin 20 mg oral tablet (20 sources) HMG-CoA Reductase Inhibitor Start: 08-23-19 take 1 tablet by mouth at bedtime [...] Comment on above: Take 1 capsule by [facility] twice daily. Take 1 capsule by [facility] twice daily for 7 days. ondansetron 4 [...] sources) Opioid Agonist Start: 09-21-19 End: 09-28-19 take 1 tablet by mouth every four [...] mg / clavulanate 125 mg oral tablet (17 sources) Penicillin-class Antibacterial Start: 12-10-2020 End: 09-03-2024 Amoxicillin-Pot Clavulanate (Augmentin) 500-125 mg tablet Discontinued 1 {tbl} PO Q12H 14 0 December 10, 2020 12:00am September 03, 2024 5:43pm ergocalciferol 1.25 mg oral capsule (17 sources) Provitamin D2 Compound Start: 09-20-2021 End: 01-24-2022 take 1 capsule by mouth every week ergocalciferol 50,000 unit capsule (VITAMIN D2, DRISDOL) Take 1 capsule by mouth one time a week. 4 capsule 2 10/28/2021 01/24/2022 Discontinued Comment on above: Take 1 capsule by mo [facility] one time a week. take 1 capsule by mo [facility] every week esomeprazole 40 mg delayed release [...] right leg] Episodic Other non-traumatic joint disorders (20 sources) Arthralgia of the ankle and/or foot; [...] Translations: [Obesity, unspecified] Onset: 09-09-2024 Chronic Syncope (17 sources) Syncope; Translations: [Syncope and collapse] 05-04-2019 [...] ankle pain, unspecified chronicity] Onset: 07-28-2021 Episodic Results Test Name Value Interpretation Reference Range Facility Inital Evaluation (1) - PTon 10-20-2024 Inital Evaluation (1) - PT [facility] Physical Therapy [facility] [address] [place] [address] / REHABILITATION SERVICES INITIAL EVALUATION MR#: [id number] Acct: [id number] Name: SAL PADILLA Rep #: [id number] : 1970 54 From: Angelo Tucker PT, ATC Referring Dr.: Dr. Sal Arceo MD Status: REG RCR Insurance: [facility] SELF PAY INSURANCE Patient's Visit Information Visit Information Visit Information: SAL PADILLA is a 54 year old M referred to Physical Therapy by Dr. Sal Arceo MD with a diagnosis of LBP with R LE sciatica. Date of Evaluation: 10/20/24 Physical Therapist: Angelo Tucker, PT, ATC Visit Plan Frequency: 2x /Week Duration: 1 Week Plan: Pt was issued SKTC/DKTC stretches. Issue and instruct pt on HEP of core strengthening over his next 2 visits. Subjective Subjective: Pt reports he has had LBP for a couple months now. pt reports his pain starts in the back and descends down his R LE. Pt describes the pain in his R LE as tingling and numbness. Pt reports his pain had an insidious onset in nature. Pt reports he had x-rays which revealed an old fracture likely from childhood. Pt notes the fracture is stable, but could be the source of his pain. Pt was told to try PT, and if that doesn't help, he will get an MRI. Pt reports just walking a lot will increase his pain. Pt reports he also gets pain from laying down, which results in sleep difficulty at this time. Pt notes he had R knee and ankle surgeries in the past, which has also altered his gait pattern. 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 Pt reports he is able to complete all of his ADL's and IADL's, he just has to be careful to pay attention to his body positioning. Pt reports LBP is 3/10 while sitting here at rest, 9/10 pain at worst. Pain LBP: Pain Intensity (Out of 10): 3 Pain Intensity Range: 9 Objective Objective: Neuro: B LE sensation is WNL to light touch. MMT: B LE's are equal and strong throughout. ROM: Pt is minimally limited with flex and ext. No pain with movements Repeated movements: RFIS 10x2 peripheralized sx's. DAPHNE 10x2 NE. REIL 10x1 peripheralized sx's. SKTC/DKTC 10 sec x 3 ea decreased pain Balance/Special Test Scores Oswestry Low Back Score: 14 Goals Goal 1:: Decrease LBP x 50% to aid with sleep Goal Time Frame: 2 Weeks Goal 2:: Decrease the frequency and intensity of R LE radiculopathy x 50% to aid with ambulation Goal Time Frame: 2 Weeks Goal 3:: I with HEP Goal Time Frame: 2 Weeks Rehabilitation Potential Physical Therapy Diagnosis: Pt has LBP, R LE sciatica, and difficulty with sleep secondary to degenerative changes in L/S Rehabilitation Potential: Good Anticipated Interventions Patient/Client Instruction: Educate patient on: Condition and Plan of Care For the Purpose of:: To improve self management Therapeutic Exercise to Include: Strength training, Endurance training, Body mechanics, Postural training, Active ROM and Dynamic Lumbar Stabilization For the Purpose of:: To decrease pain, To improve muscle performance and motor function and To increase tolerance to activity/condition/po sition Text: Thank you for the opportunity to evaluate your patient. For Medicare and Medicare HMO plans, please review the plan of care and approve it. It will need to be FAXED BACK to us at [phone] for Medicare purposes. For Medicare only, by signing this I certify the plan of care. Please let me know if there are questions or concerns regarding this plan of care. Physician Signature: Date : 10/20/24 1104 CC: Dr. Sal Arceo MD [facility] Signed Normal [facility] Knee 4 or More Viewson 10-06 Knee 4 or More Views [facility] Imaging Services [address] [place] [address] Knee 4 or More Views MR#: [id number] Acct: [id number] Name: SAL PADILLA Rep #: [id number] : 1970 M 54 From: Cordell Landon MD PCP: Dr. Sal Arceo MD Status: REG CLI Study: Knee 4 or More Views Date of Exam: 10/06/24 Exam# [id number] Ordering Dr: Sal Arceo PROCEDURE: KNEE 4 OR MORE VIEWS 10/06/2024 REASON FOR EXAM: RIGHT KNEE PAIN TECHNIQUE: KNEE 4 OR MORE VIEWS COMPARISON: None FINDINGS: Bones: No fracture. No suspicious bone lesion. Joints: Mild tricompartmental arthrosis Effusion: No effusion. Soft tissues: Soft tissues are unremarkable. Other: RAD/Knee 4 or More Views IMPRESSION: Mild tricompartmental arthrosis no demonstrated fracture or suspicious osseous lesion Reading Location: [facility] CC: Dr. Sal Arceo MD Department Clinician: Signed Normal [facility] L/S Spine w Bend Min 6 Vwon 10-06-2024 L/S Spine w Bend Min 6 Vw [facility] Imaging Services [address] [place] [id number] L/S Spine w Bend Min 6 Vw MR#: [id number] Acct: [id number] Name: SAL PADILLA Rep #: [id number] : 1970 M 54 From: Cordell Landon MD PCP: Dr. Sal Arceo MD Status: REG CLI Study: L/S Spine w Bend Min 6 Vw Date of Exam: Exam# [id number] Ordering Dr: Sal Arceo PROCEDURE: L/S SPINE W BEND MIN 6 VW 10/06/2024 REASON FOR EXAM: PAIN IN LB WITH RADIATION TO R KNEE TECHNIQUE: L/S SPINE W BEND MIN 6 VW 6 views total COMPARISON: None FINDINGS: There is anatomic alignment of the lumbar spine in the lateral view from L1-L5. There is a bilateral pars defect and grade 1 spondylolisthesis noted at L5/S1. Disc space narrowing noted throughout the lumbar spine most pronounced at L5/S1. Small anterior and posterior spurs noted throughout the lumbar spine. No instability noted on flexion or extension views however range of motion of the limited RAD/L/S Spine w Bend Min 6 Vw IMPRESSION: Bilateral pars defect with grade 1 spondylolisthesis at L5/S1 without instability Multilevel degenerative changes, no acute findings Reading Location: [id number] CC: Dr. Sal Arceo MD Department Clinician: Signed Normal [facility] Calculated very low density lipoprotein (VLDL) cholesterol measurementOrdered By: Sal Arceo on 10-02-2024 Calculated very low density lipoprotein (VLDL) cholesterol measurement 25 mg/dL 5-40 [facility] LDL calc ser/plasOrdered By: Sal Arceo on 10-02-2024 Cholesterol in LDL [Mass/Vol] 169 mg/dL [facility] Comment on above: Feglezbldn=993-545 m g/dL & Higher Skyy=294 mg/dL or greater Lipid Profileon 10-02-2024 CHOL:HDL 5.91 Normal [facility] Comment on above: Order Comment: Order Date: 10/04/23 Order Info: [id number] - LIPID Performed By: #### L 500.4100 #### [facility] [address] [place], [place], [id number] Cholesterol [Mass/Vol] 234 mg/dL High <=200 [facility] Comment on above: Order Comment: Order Date: 10/04/23 Order Info: [id number] - LIPID Result Comment: Chol esterol level, Desirable <200 mg/dL Borderline high cholesterol 200-239 mg/dL High cholesterol >=240 mg/dL Recommendations of the NCEP Adult Treatment Panel for the following risk-cutoff thresholds for the [place] population. Performed By: #### L 500.4100 #### [facility] [address] [place], [place], [phone] Cholesterol in HDL [Mass/Vol] 40 mg/dL Normal [facility] Comment on above: Order Comment: Order Date: 10/04/23 Order Info: [id number] - LIPID Result Comment: Cece onal Cholesterol Education Program (NCEP) guidelines: <40 mg/dL: Low HDL-cholesterol (major risk factor for CHD) >= 60 mg/dL: High HDL-cholesterol (negative risk factor for CHD) HDL-cholesterol is affected by a number of factors, e.g. smoking, exercise, hormones, sex and age. Performed By: #### L 500.4100 #### [facility] [address] [place], [address] Cholesterol in LDL [Mass/Vol] 169 mg/dL Normal [facility] Comment on above: Order Comment: Order Date: 10/04/23 Order Info: [id number] - LIPID Result Comment: Bord zgmvaw=697-024 mg/dL Higher Awwh=260 mg/dL or greater Performed By: #### L 500.4100 #### [facility] [address] [place], [place], [phone] Cholesterol in VLDL [Mass/Vol] 25 mg/dL Normal 5-40 [facility] Comment on above: Order Comment: Order Date: 10/04/23 Order Info: [id number] - LIPID Performed By: #### L 500.4100 #### [facility] [address] [place], [address] Triglyceride [Mass/Vol] 125 mg/dL Normal [facility] Comment on above: Order Comment: Order Date: 10/04/23 Order Info: [id number] - LIPID Result Comment: The drugs N-Acetylcysteine and Metamizole may falsely depress this assay. Normal range: <150 mg/dL Borderline High: 150-199 mg/dL High: 200-499 mg/dL Very High: >500 mg/dL Performed By: #### L 500.4100 #### [facility] [address] [place], [place], [phone] ([phone] Screening total cholesterol/ high density lipoprotein (HDL) cholesterol ratioOrdered By: Sal Arceo on 10-02-2024 Cholesterol.total/Chol esterol in HDL [Mass ratio] 5.91 {ratio} [facility] Serum or plasma cholesterol in HDL measurement (mass/volume)Ordered By: Sal Arceo on 10-02-2024 Cholesterol in HDL [Mass/Vol] 40 mg/dL >40 [facility] Comment on above: National Cholesterol Education Program (NCEP) guidelines:<40 mg/dL: Low HDL-cholesterol (major risk factor for CHD)>= 60 mg/dL: High HDL-cholesterol (negative risk factor for CHD)HDL-cholesterol is affected by a number of factors, e.g. smoking, exercise, hormones, sex and age. Serum or plasma cholesterol measurement (mass/volume)Ordered By: Sal Arceo on 10-02-2024 Cholesterol [Mass/Vol] 234 mg/dL High <201 [facility] Comment on above: Cholesterol level, D esirable <200 mg/dLBorderline high cholesterol 200-239 mg/dLHigh cholesterol >=240 mg/dLRecommendations of the NCEP Adult Treatment Panel for the following risk-cutoff thresholds for the [place] population. Triglycerides measurementOrd ered By: Sal Arceo on 10-02-2024 Triglyceride [Mass/Vol] 125 mg/dL <199 [facility] Comment on above: The drugs N-Acetylcy steine and Metamizole may falsely depress this assay. Normal range: <150 mg/dLBorderline High: 150-199 mg/dLHigh: 200-499 mg/dLVery High: >500 mg/dL Urgent Care Visit Reporton 0 09-03-2024 Urgent Care Visit Report [facility] [address], [address] [place] [address] OFFICE VISIT Date of Service: 09/03/24 MR#: [id number] Acct: [id number] Name: SAL PADILLA Rep #: [id number] : 1970 Provider: EMILY Stovall Age/Sex: 54/M Location: [facility] Status: Signed Intake Vital Signs 08/21/24 10:09 [...] Chief Complaint: drainage, cough, face pain, congestion Transplant Immunologist Required: No Is patient in pain?: Yes Allergies No Known Allergies Allergy (Verified 09/03/24 17:43) Medications ???Medication ???Instructions ???Recorded ???Confirmed ???Type atorvastatin 20 mg tablet 20 mg PO QHS 08/22/16 12/10/20 His tory apixaban 2.5 mg tablet (Eliquis) 2.5 mg PO Q12H #60 tabs 12/10/20 Rx oxycodone-acetaminoph en 5 mg-325 1 - 2 tab PO [...] fever, chills, myalgias, fatigue, runny nose, or nausea/vomiting/diarr hea. No complaints of chest pain/shortness of breath/dyspnea on exertion. No close contacts with similar complaints. No other associated symptoms and no other alleviating/aggravati ng factors. ROS Const Constitutional: No other (as above) Exam Const General: cooperative, healthy appearing and no acute distress Nutritional Appearance: average body habitus Orientation: alert, awake and oriented x3 [facility] Head: normal to inspection Ears: hearing grossly [...] states acknowledgi (more content not included)... Normal [facility] Basophil percentageOrdered B y: Dr. Arceo on 08-02-2022 Chloride [Moles/Vol] 106 mmol/L 98-107 [facility] Cholesterol [Mass/Vol] 163 mg/dL <200 [facility] Comment on above: <200 mg/dL Desirable 200-240 mg/dL Borderline >240 mg/dL High Risk Glucose [Mass/Vol] 104 mg/dL 74-[address] [facility] Comment on above: Fasting Glucose resu lt from 100 to 125 mg/dL suggests IMPAIRED HOMEOSTASIS per A.D.A. criteria. Potassium [Moles/Vol] 4.4 mmol/L 3.5-5.1 [facility] Sodium [Moles/Vol] 135 mmol/L 136-[address] [facility] Triglyceride [Mass/Vol] 153 mg/dL <199 [facility] Comment on above: The drugs N-Acetylcy steine and Metamizole may falsely depress this assay.Serum Triglycerides Reference Interval Normal <150 mg/dL Borderline high 150 - 199 mg/dL High 200 - 499 mg/dL Very High > or = 500 mg/dL Laboratory - Chemistry and C hemistry - challengeOrdered By: Dr. Arceo on 08-02-2022 CO2 [Moles/Vol] 25.0 mmol/L 21.0-32.0 [facility] Urea nitrogen/Creatinine [Mass ratio] 16.3 mg/mg 10-20 [facility] No Panel InformationOrdered By: Dr. Arceo on 08-02-2022 Estimated GFR (MDRD) Amer 120 mL/min >60 [facility] Comment on above: GFR Calc Estimated GFR (MDRD) Non-Af Amer 99 mL/min >60 [facility] Comment on above: Non- GFR Calc Prostate Specific Antigen Screen 0.92 ng/mL 0.00-4.00 [facility] Comment on above: This test was perfor med using the TPSA assay method for the[employer] chemistry system. Values obtained with differentassay methods cannot be used interchangably.When changing PSA assays in the course of monitoring apatient, additional sequential testing should be carriedout to confirm baseline values. Serum or plasma calcium adán urement (mass/volume)Ordered By: Dr. Arceo on 08-02-2022 Calcium [Mass/Vol] 9.3 mg/dL 8.5-10.[address] [facility] Serum or plasma cholesterol in HDL measurement (mass/volume)Ordered By: Dr. Arceo on 08-02-2022 Cholesterol in HDL [Mass/Vol] 40 mg/dL >40 [facility] Comment on above: The drugs N-Acetylcy steine and Metamizole may falsely depress this assay. Reference Range HDL <40 mg/dL Low HDL Cholesterol HDL >or= 60 mg/dL High HDL Cholesterol Serum or plasma cholesterol in VLDL measurement (mass/volume)Ordered By: Dr. Arceo on 08-02-2022 Cholesterol in VLDL [Mass/Vol] 31 mg/dL 5-40 [facility] Serum or plasma creatinine m easurement (mass/volume)Ordered By: Dr. Arceo on 08-02-2022 Creatinine [Mass/Vol] 0.86 mg/dL 0.70-1.30 [facility] Comment on above: The validity of the calculated GFR & GFRAA in patients over 70 years has not been determined. Clinical correlation is essential. Serum or plasma low density lipoprotein (LDL) cholesterol measurement (mass/volume)Ordered By: Dr. Arceo on 08-02-2022 Cholesterol in LDL [Mass/Vol] 92 mg/dL 0-130 [facility] Serum or plasma urea nitroge n measurement (mass/volume)Ordered By: Dr. Arceo on 08-02-2022 Urea nitrogen [Mass/Vol] 14 mg/dL 7-18 [facility] Thin prep Papanicolaou smear with manual screeningOrdered By: Dr. Arceo on 08-02-2022 Thin prep Papanicolaou smear with manual screening 4 5-15 [facility] CNOVon 06-08-2022 CNOV Office Visit (ORMIDD ) SAL PADILLA ([id number]) 1970 Bj Date Time Provider Department 06/08/22 10:00 AM [...] disturbance, mood disorder and recent psychosocial stressors. HEMATOLOGIC/LYMPHATIC /IMMUNOLOGIC:Negative for prolonged bleeding, bruising easily, and swollen [...] next visit: Yes PCP: Sal Arceo MD [address] [place] [phone] FELLOW / RESIDENT: No fellow or resident assisted in this office visit. 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 - atorvastatin (L (more content not included)... Normal [facility] XR ANKLE 3V AP/LAT/OBL RTon 06-08-2022 [...] REMOTE POSTTRAUMATIC, MILD DEGENERATIVE AND POSTSURGICAL CHANGES Department Clinician: [facility] Transcribe Date/Time: Jun 08 2022 10:12A Dictated by : CHARLENE SHEFFIELD MD This examination was interpreted and the report reviewed and electronically signed by: CHARLENE SHEFFIELD MD on Jun 08 2022 10:16AM EST [id number] N Normal [facility] XR Ankle - right AP and Late ral and obliqueon 06-08-2022 IMPRESSION: REMOTE POSTTRAUMATIC, MILD DEGENERATIVE AND POSTSURGICAL CHANGES Department Clinician: [facility] Transcribe Date/Time: Jun 08 2022 10:12A Dictated [...] seen. Pes cavus. DIVISION OF RADIOLOGY Provider, Darrick Adrian palacios Lexi - 06/08/2022 * * *Final Report* * [...] REMOTE POSTTRAUMATIC, MILD DEGENERATIVE AND POSTSURGICAL CHANGES Department Clinician: [facility] Transcribe Date/Time: Jun 08 2022 10:12A Dictated by : CHARLENE SHEFFIELD MD This examination was interpreted and the report reviewed and electronically signed by: CHARLENE SHEFFIELD MD on Jun 08 2022 10:16AM EST [facility] Radiology Study observation (narrative) [facility] XR Ankle - right AP and Late ral and obliqueOrdered By: Ccf Provider on 06-08-2022 [facility] CNOVon 03-06-2022 CNOV Office Visit (ORMIDD ) SAL PADILLA ([id number]) 1970 M Date Time Provider Department 03/06/22 [...] disturbance, mood disorder and recent psychosocial stressors. HEMATOLOGIC/LYMPHATIC /IMMUNOLOGIC:Negative for prolonged bleeding, bruising easily, and swollen [...] next visit: Yes PCP: Sal Arceo MD [address] [place] [phone] FELLOW / RESIDENT: No fellow or resident assisted in this office visit. Milla Soto MD Referring Provider: MILLA SOTO [[id number]] Allergies As of Date: 03/06/2022 (No Known Allergies) Date Reviewed: 03/06/2022 Reviewed by: Verónica Moreland - Fully Assessed Reason for Visit: Follow Up [171] Pain [78] Primary Visit Diagnosis:Acquired cavovarus deformity of foot, 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] Order(s):XR ANKLE GENERAL 3V AP/LAT/OBL RIGHT [[id number]] Order #: [id number] FUTURE CONSULT TO PHYSICAL THERAPY [9083] Order #: [id number]: 1 FUTURE XR ANKLE GENERAL 3 (more content not included)... Normal [facility] No Panel Informationon 03-06 Radiology Study observation (narrative) [facility] XR ANKLE 3V AP/LAT/OBL RTon 03-06-2022 XR [...] to be healed. No other significant abnormality. --- IMPRESSION: POSTOPERATIVE FINDINGS DESCRIBED Department Clinician: JACQUIE Transcribe Date/Time: Mar 06 2022 10:09A Dictated by : EMMANUEL ELIZABETH MD This examination was interpreted and the report reviewed and electronically signed by: EMMANUEL ELIZABETH MD on Mar 06 2022 10:10AM EST [id number] N Normal [facility] XR Ankle - right AP and Late ral and obliqueon 03-06-2022 IMPRESSION: POSTOPERATIVE FINDINGS DESCRIBED [facility] Transcribe Date/Time: Mar 06 2022 10:09A Dictated [...] to be healed. No other significant abnormality. --- DIVISION OF RADIOLOGY Provider, [facility] - 03/06/2022 * * *Final Report* * [...] to be healed. No other significant abnormality. --- IMPRESSION IMPRESSION: POSTOPERATIVE FINDINGS DESCRIBED Department Clinician: JACQUIE Transcribe Date/Time: Mar 06 2022 10:09A Dictated by : EMMANUEL ELIZABETH MD This examination was interpreted and the report reviewed and electronically signed by: EMMANUEL ELIZABETH MD on Mar 06 2022 10:10AM EST [facility] XR Ankle - right AP and Late ral and obliqueOrdered By: Ccf Provider on 03-06-2022 [facility] XR FOOT 3V AP/LAT/OBL RTon 1 05-06-2021 [...] to be healed. No other significant abnormality. --- IMPRESSION: POSTOPERATIVE FINDINGS DESCRIBED Department Clinician: JACQUIE Transcribe Date/Time: Mar 06 2022 10:45A Dictated by : EMMANUEL ELIZABETH MD This examination was interpreted and the report reviewed and electronically signed by: EMMANUEL ELIZABETH MD on Mar 06 2022 10:46AM EST [id number] N Normal [facility] XR Foot - right AP and Later al and obliqueon 03-06-2022 IMPRESSION: POSTOPERATIVE FINDINGS DESCRIBED Department Clinician: JACQUIE Transcribe Date/Time: Mar 06 2022 10:45A Dictated by : EMMANUEL ELIZABETH MD This examination was interpreted and the report reviewed and electronically signed by: EMMANUEL ELIZABETH MD on Mar 06 2022 10:46AM EST DIVISION OF RADIOLOGY * * *Final [...] to be healed. No other significant abnormality. --- DIVISION OF RADIOLOGY Provider, Darrick Elliott - 03/06/2022 * * *Final Report* * [...] to be healed. No other significant abnormality. --- IMPRESSION IMPRESSION: POSTOPERATIVE FINDINGS DESCRIBED Department Clinician: JACQUIE Transcribe Date/Time: Mar 06 2022 10:45A Dictated by : EMMANUEL ELIZABETH MD This examination was interpreted and the report reviewed and electronically signed by: EMMANUEL ELIZABETH MD on Mar 06 2022 10:46AM EST [facility] CNOVon 01-05-2022 CNOV Office Visit (JOHN ) SAL PADILLA ([id number]) 1970 M Date Time Provider Department 01/05/22 [...] disturbance, mood disorder and recent psychosocial stressors. HEMATOLOGIC/LYMPHATIC /IMMUNOLOGIC:Negative for prolonged bleeding, bruising easily, and swollen [...] next visit: Yes PCP: Sal Arceo MD [address] [place] [phone] FELLOW / RESIDENT: No fellow or resident assisted in this office visit. Milla Soto MD Referring Provider: MILLA SOTO [[id number]] Allergies As of Date: 01/05/2022 (No Known Allergies) Date Reviewed: 01/05/2022 Reviewed by: Shelby Covington Ma - Fully Assessed Reason for Visit: Follow Up [171] Primary Visit Diagnosis:Right ankle pain, unspecified chronicity [M25.571] Order(s):XR FOOT GENERAL 3V AP/LAT/OBL RIGHT [[id number]] Order #: [id number] FUTURE CONSULT TO PHYSICAL THERAPY [9032] Order #: [id number] (more content not included)... Normal [facility] XR FOOT 3V AP/LAT/OBL RTon 0 [...] related to disuse. No other significant abnormality. --- IMPRESSION: NORMAL POSTOPERATIVE FINDINGS Department Clinician: JACQUIE Transcribe Date/Time: Jan 05 2022 10:51A Dictated by : MARK TALLEY MD This examination was interpreted and the report reviewed and electronically signed by: MARK TALLEY MD on Jan 05 2022 10:53AM EST [id number] N Normal [facility] XR FOOT GENERAL 3V AP/LAT/OB L RIGHTon 01-05-2022 [facility] XR Foot - right AP and Later al and obliqueon 01-05-2022 IMPRESSION: NORMAL POSTOPERATIVE FINDINGS Department Clinician: JACQUIE Transcribe Date/Time: Jan 05 2022 10:51A [...] related to disuse. No other significant abnormality. --- DIVISION OF RADIOLOGY Provider, [facility] - 01/05/2022 * * *Final Report* * [...] related to disuse. No other significant abnormality. --- IMPRESSION IMPRESSION: NORMAL POSTOPERATIVE FINDINGS Department Clinician: JACQUIE Transcribe Date/Time: Jan 05 2022 10:51A Dictated by : MARK TALLEY MD This examination was interpreted and the report reviewed and electronically signed by: MARK TALLEY MD on Jan 05 2022 10:53AM EST [facility] Radiology Study observation (narrative) [facility] XR Foot - right AP and Later al and obliqueOrdered By: Ccf Provider on 01-05-2022 [facility] CNOVon 11-24-2021 CNOV Office Visit (ORMIDD ) SAL PADILLA ([id number]) 1970 M Date Time Provider Department 11/24/21 1:20 PM MILLA SOTO During your visit today, we recorded the following information about you: COLE Coker 11/25/2021 8:06 AM Signed PT ASSESSMENT - CASTING ROOM aSl presents for Application of boot. Applied high [...] Milla Soto MD Referring Provider: MILLA SOTO [[id number]] Allergies As of Date: 11/24/2021 (No Known [...] 09/27/2021 Encounter Status:Closed by MILLA SOTO on 11/24/21 Normal [facility] No Panel Informationon 11-24 IMPRESSION: Postoperative changes with intact hardware. Department Clinician: [facility] Transcribe Date/Time: Nov 24 2021 1:53P Dictated by : BECCA HURT MD This examination was interpreted and the report reviewed and electronically signed by: BECCA HURT MD on Nov 24 2021 1:55PM EST DIVISION OF RADIOLOGY Radiology Study observation (narrative) [facility] No Panel InformationOrdered By: Ccf Provider on 11-24-2021 [facility] XR ANKLE 3V AP/LAT/OBL RTon 11-24-2021 XR [...] COMBINED IMPRESSION: Postoperative changes with intact hardware. Department Clinician: [facility] Transcribe Date/Time: Nov 24 2021 1:53P Dictated by : BECCA HURT MD This examination was interpreted and the report reviewed and electronically signed by: BECCA HURT MD on Nov 24 2021 1:55PM EST [id number] N Normal [facility] XR Ankle - right AP and [...] foot. Pes cavus. Bony alignment is unchanged. [facility] DIVISION OF RADIOLOGY Provider, [facility] - 11/24/2021 * * *Final Report* * [...] IMPRESSION IMPRESSION: Postoperative changes with intact hardware. Department Clinician: [facility] Transcribe Date/Time: Nov 24 2021 1:53P Dictated by : BECCA HURT MD This examination was interpreted and the report reviewed and electronically signed by: BECCA HURT MD on Nov 24 2021 1:55PM [facility] XR FOOT 3V AP/LAT/OBL RTon 0 11-24-2021 [...] COMBINED IMPRESSION: Postoperative changes with intact hardware. Department Clinician: [facility] Transcribe Date/Time: Nov 24 2021 1:53P Dictated by : BECCA HURT MD This examination was interpreted and the report reviewed and electronically signed by: BECCA HURT MD on Nov 24 2021 1:55PM EST [id number] N Normal [facility] XR Foot - right AP and [...] is unchanged. COMBINED DIVISION OF RADIOLOGY [facility] * * *Final Report* * [...] IMPRESSION IMPRESSION: Postoperative changes with intact hardware. Department Clinician: JACQUIE Transcribe Date/Time: Nov 24 2021 1:53P Dictated by : BECCA HURT MD This examination was interpreted and the report reviewed and electronically signed by: BECCA HURT MD on Nov 24 2021 1:55PM [facility] (ORQ) SAL PADILLA ([id number]) 1970 M Date Time Provider Department 10/28/21 MILLA SOTO ORQ During your visit today, we recorded the following information about you: Jeromy Bell 10/28/2021 2:46 PM Signed Sal is a patient of Dr. oSto. He was seen in office yesterday and was directed to remain on the Vitamin D2 50,000 international unit(s) Prescription. Patient got home and realized he doesn't have much left. He is asking for a refill to be sent in to the [facility] in [facility]. Allergies As of Date: 10/28/2021 (No Known Allergies) Date Reviewed: 09/27/2021 Reviewed by: Ofelia Clay PA-C - Fully Assessed Reason for Visit: Medication Problem [65] Cmt: Vitamin D2 50,000 IU Order(s):ergocalcifer ol 50,000 unit capsule (VITAMIN D2, DRISDOL)Take 1 [...] one time a week. Encounter Status:Closed by OFELIA CLAY on 10/28/21 [facility] Efren 10-27-2021 CNOV Office Visit (ORMIDD ) SAL PADILLA ([id number]) 1970 M Date Time Provider Department 10/27/21 [...] Milla Soto MD Referring Provider: MILLA SOTO [[id number]] Allergies As of Date: 10/27/2021 (No Known [...] Encounter Status:Closed by MILLA SOTO on 10/27/21 [facility] No Panel Informationon 10-27 IMPRESSION: POSTSURGICAL CHANGES WITH NO APPARENT COMPLICATION Department Clinician: JACQUIE Transcribe Date/Time: Oct 27 2021 1:17P Dictated by : CHARLENE SHEFFIELD MD This examination was interpreted and the report reviewed and electronically signed by: CHARLENE SHEFFIELD MD on Oct 27 2021 1:22PM EST ZZZ_DO_NOT_USE _DIVISION OF RADIOLOGY Radiology Study observation (narrative) [facility] No Panel InformationOrdered By: Ccf Provider on 10-27-2021 [facility] XR ANKLE 3V AP/LAT/OBL RTon 10-27-2021 XR [...] IMPRESSION: POSTSURGICAL CHANGES WITH NO APPARENT COMPLICATION Department Clinician: JACQUIE Transcribe Date/Time: Oct 27 2021 1:17P Dictated by : CHARLENE SHEFFIELD MD This examination was interpreted and the report reviewed and electronically signed by: CHARLENE SHEFFIELD MD on Oct 27 2021 1:22PM EST [id number] N Normal [facility] XR Ankle - right AP and [...] swelling at the dorsum of the forefoot. ZZZ_DO_NOT_USE _DIVISION OF RADIOLOGY Provider, [facility] - 10/27/2021 * * *Final Report* * [...] IMPRESSION: POSTSURGICAL CHANGES WITH NO APPARENT COMPLICATION Department Clinician: JACQUIE Transcribe Date/Time: Oct 27 2021 1:17P Dictated by : CHARLENE SHEFFIELD MD This examination was interpreted and the report reviewed and electronically signed by: CHARLENE SHEFFIELD MD on Oct 27 2021 1:22PM EST [facility] XR FOOT 3V AP/LAT/OBL RTon 0 10-27-2021 [...] IMPRESSION: POSTSURGICAL CHANGES WITH NO APPARENT COMPLICATION Department Clinician: [facility] Transcribe Date/Time: Oct 27 2021 1:17P Dictated by : CHARLENE SHEFFIELD MD This examination was interpreted and the report reviewed and electronically signed by: CHARLENE SHEFFIELD MD on Oct 27 2021 1:22PM EST [id number] N Normal [facility] XR Foot - right AP and [...] swelling at the dorsum of the forefoot. LenchoZZ_DO_NOT_USE _DIVISION OF RADIOLOGY Provider, [facility] - 10/27/2021 * * *Final Report* * [...] IMPRESSION: POSTSURGICAL CHANGES WITH NO APPARENT COMPLICATION Department Clinician: [facility] Transcribe Date/Time: Oct 27 2021 1:17P Dictated by : CHARLENE SHEFFIELD MD This examination was interpreted and the report reviewed and electronically signed by: CHARLENE SHEFFIELD MD on Oct 27 2021 1:22PM [facility] CNOVon 10-13-2021 CNOV Office Visit (ORMIDD ) SAL PADILLA ([id number]) 1970 M Date Time Provider Department 10/13/21 11:20 AM MILLA SOTO During your visit today, we recorded the following information about you: Milla Soto MD 10/13/2021 11:47 AM Signed Incision CDI Mild swelling Sutures removed SLNWBC FU 2 weeks with XR Milla Soto MD Referring Provider: MILLA SOTO [[id number]] Allergies As of Date: 10/13/2021 (No Known Allergies) Date Reviewed: 09/27/2021 Reviewed by: Ofelia Clay PA-C - Fully Assessed Primary Visit Diagnosis:Acquired cavovarus deformity of foot, 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] Order(s):XR FOOT GENERAL 3V AP/LAT/OBL RIGHT [[id number]] Order #: [id number] FUTURE XR ANKLE GENERAL 3V AP/LAT/OBL RIGHT [[id number]] Order #: [id number] FUTURE Prescriptions as of 10/13/2021 - acetaminophen [...] Encounter Status:Closed by [facility]A [facility]13/[facility] ([facility] SAL PADILLA ([id number]) 1970 M Date Time Provider Department 09/30/21 [...] Encounter Status:Closed by JEROMY BELL on 09/30/21 [facility] CNOVon 09-27-2021 CNOV Office Visit (ORFTMN ) SAL PADILLA Arcadio ([id number]) 1970 M Date Time Provider Department 09/27/21 2:40 PM OFELIA CLAY During your visit today, we recorded the following information about you: COLE Coker 10/05/2021 11:18 AM Signed PT ASSESSMENT - CASTING ROOM Sal presents for Application of cast. Applied short cast: to Right foot Patient has been instructed in Care of cast.. COLE Coker Beeper: [id number] Ofelia Clay PA-C 09/27/2021 5:32 PM Signed Milla Soto [id number] [facility] [address] Specialty Problems Ortho Problems Right ankle pain Acquired cavovarus deformity of foot, right Foot pain CC: Established Patient, Follow Up, and Post Op of the Right Ankle Injury/Surgery Date: 09/20/2021 Procedure: 1.?Right?subtalar arthrodesis. 2.?Right iliac?crest bone graft small. 3. Right achilles tendon lengthening.? 4. Right ankle lateral ligament reconstruction. Dongeovanna Cohn Nghia is a 51 year old male that [...] discussed emergent need to return to the [facility] care or go to the emergency department. We discussed red flags associated with this condition and emergent treatment if they present. I spent a total of 20 minutes on the date of the service which included preparing to see the patient, [id number] patient care, completing clinical documentation, obtaining and/or reviewing separately obtained history, performing a medically appropriate examination, counseling and educating the patient/family/caregi javid, communicating results to the patient/family/caregi javid and care coordination (not separately reported). Review [...] Ofelia Clay PA-C Referring Provider: MILLA SOTO [[id number]] Allergies As of Date: 09/27/2021 (No Known [...] 03/23/2009 0 (more content not included)... Normal [facility] Basic metabolic 2000 panelon 09-22-2021 Anion gap [Moles/Vol] 10 mmol/L Normal 9-18 [facility] Comment on above: Order Comment: Speci men Type: BLOOD SPECIMENOrdering Facility: [facility] Address: [address] [place] [phone] Performed By: #### 2 4321-2 ####[facility] LABCLIA [id number] [place] [address] [place] Calcium [Mass/Vol] 9.5 mg/dL Normal 8.5-10.2 [facility] Comment on above: Order Comment: Speci men Type: BLOOD SPECIMENOrdering Facility: [facility] Address: [address] [phone] Performed By: #### 2 4321-2 ####[facility] LABCLIA [id number] [place] [address] [place] Chloride [Moles/Vol] 102 mmol/L Normal 97-105 [facility] Comment on above: Order Comment: Speci men Type: BLOOD SPECIMENOrdering Facility: [facility] Address: [address] [place] [address] Performed By: #### 2 4321-2 ####[facility] LABCLIA [id number] [place] [address] [place] CO2 [Moles/Vol] 25 mmol/L Normal 22-30 [facility] Comment on above: Order Comment: Speci men Type: BLOOD SPECIMENOrdering Facility: [facility] Address: [address] [place] [address] Performed By: #### 2 4321-2 ####[facility] LABCLIA [id number] [address] STATES OF [facility] Creatinine [Mass/Vol] 0.84 mg/dL Normal 0.73-1.22 [facility] Comment on above: Order Comment: Speci men Type: BLOOD SPECIMENOrdering Facility: [facility] Address: [address] [place] [address] Performed By: #### 2 4321-2 ####[facility] LABCLIA [id number] [address] [place] ESTIMATED GLOMERULAR FILTRATION RATE 104 mL/min/1.73m??? Normal >=60 [facility] Comment on above: Order Comment: Speci men Type: BLOOD SPECIMENOrdering Facility: [facility] Address: [address] [place] [address] Result Comment: Nell mated Glomerular Filtration Rate [...] actual GFR. Performed By: #### 2 4321-2 ####[facility] LABCLIA [id number] [place] [address] [place] Glucose [Mass/Vol] 101 mg/dL High 74-99 [facility] Comment on above: Order Comment: Speci men Type: BLOOD SPECIMENOrdering Facility: [facility] Address: [address] [place] [address] Result Comment: The [place] Diabetes Association (ADA) provides guidance for cutoff [...] Standards of Medical Care in Diabetes 2016, [place] [employer]. Diabetes Care. 2016.39(Suppl 1). Performed By: #### 2 4321-2 ####[facility] LABCLIA [id number] [place] [address] [place] Potassium [Moles/Vol] 3.7 mmol/L Normal 3.7-5.1 [facility] Comment on above: Order Comment: Speci men Type: BLOOD SPECIMENOrdering Facility: [facility] Address: [address] [place], [place] [address] Performed By: #### 2 4321-2 ####[facility] LABCLIA [id number] [place] [address] [place] Sodium [Moles/Vol] 137 mmol/L Normal 136-144 [facility] Comment on above: Order Comment: Speci men Type: BLOOD SPECIMENOrdering Facility: [facility] Address: [address] [place], [place] [address] Performed By: #### 2 4321-2 ####[facility] LABCLIA [id number] [place] [address] [place] Urea nitrogen [Mass/Vol] 10 mg/dL Normal 9-24 [facility] Comment on above: Order Comment: Speci men Type: BLOOD SPECIMENOrdering Facility: [facility] Address: [address] [place] [address] Performed By: #### 2 4321-2 ####[facility] LABCLIA [id number] [place] [address] [place] CBC panel Auto (Bld)on 09-22 Erythrocyte distribution width (RBC) [Ratio] 13.5 % Normal 11.5-15.0 [facility] Comment on above: Order Comment: Speci men Type: BLOOD SPECIMENOrdering Facility: [facility] Address: [address] [place] [address] Performed By: #### 5 8410-2 ####[facility] LABIA [id number] [address] [place] Hematocrit (Bld) [Volume fraction] 45.0 % Normal 39.0-51.0 [facility] Comment on above: Order Comment: Speci men Type: BLOOD SPECIMENOrdering Facility: [facility] Address: [address] [place] [address] Performed By: #### 5 8410-2 ####[facility] LABCLIA [id number] [address] [place] Hemoglobin (Bld) [Mass/Vol] 14.8 g/dL Normal 13.0-17.0 [facility] Comment on above: Order Comment: Speci men Type: BLOOD SPECIMENOrdering Facility: [facility] Address: [address] [place] [address] Performed By: #### 5 8410-2 ####[facility] LABIA [id number] [place] [address] [place] MCH (RBC) [Entitic mass] 28.4 pg Normal 26.0-34.0 [facility] Comment on above: Order Comment: Speci men Type: BLOOD SPECIMENOrdering Facility: [facility] Address: [address] [place], [place] [phone] Performed By: #### 5 8410-2 ####[facility] LABCLIA [id number] [address] [place] MCHC (RBC) [Mass/Vol] 32.9 g/dL Normal 30.5-36.0 [facility] Comment on above: Order Comment: Speci men Type: BLOOD SPECIMENOrdering Facility: [facility] Address: [address] [place] [address] Performed By: #### 5 8410-2 ####[facility] LABCLIA [id number] [address] [place] MCV (RBC) [Entitic vol] 86.4 fL Normal 80.0-100.0 [facility] Comment on above: Order Comment: Speci men Type: BLOOD SPECIMENOrdering Facility: [facility] Address: [address] [place], [place] [address] Performed By: #### 5 8410-2 ####[facility] [facility] LABCLIA [id number] [address] [place] Nucleated RBC (Bld) [#/Vol] 10*3/uL Normal <0.01 [facility] Comment on above: Order Comment: Speci men Type: BLOOD SPECIMENOrdering Facility: [facility] Address: [address] [place], [place] [address] Performed By: #### 5 8410-2 ####[facility] LABCLIA [id number] [address] [place] Platelet mean volume (Bld) [Entitic vol] 10.6 fL Normal 9.0-12.7 [facility] Comment on above: Order Comment: Speci men Type: BLOOD SPECIMENOrdering Facility: [facility] Address: [address] [place] [address] Performed By: #### 5 8410-2 ####[facility] LABIA [id number] [place] [address] [place] Platelets (Bld) [#/Vol] 173 10*3/uL Normal 150-400 [facility] Comment on above: Order Comment: Speci men Type: BLOOD SPECIMENOrdering Facility: [facility] Address: [address] [place] [address] Performed By: #### 5 8410-2 ####[facility] [id number] [place] [address] [place] RBC (Bld) [#/Vol] 5.21 10*6/uL Normal 4.20-6.00 [facility] Comment on above: Order Comment: Speci men Type: BLOOD SPECIMENOrdering Facility: [facility] Address: [address] [place] [address] Performed By: #### 5 8410-2 ####[facility] [id number] [place] [address] [facility] [place] WBC (Bld) [#/Vol] 10.28 10*3/uL Normal 3.70-11.00 [facility] Comment on above: Order Comment: Speci men Type: BLOOD SPECIMENOrdering Facility: [facility] Address: [address] [place] [address] Performed By: #### 5 8410-2 ####[facility] [id number] [place] [address] [place] Elda 09-22-2021 DEZ Telephone (BABR) SAL PADILLA ([id number]) 1970 M Date Time Provider Department 09/22/21 SIVA MCDERMOTT During your visit today, we recorded the following information about you: Siva Mcdermott PA-C 09/22/2021 12:44 PM Signed DOS: 09/20/2021 Type of Surgery: R subtalar arthrodesis and ankle ligament repair Surgeon : Charles Catheter site: Popliteal PNC Solution: Ropivacaine 0.2% Rates: Phone number: [phone] (pt), (Qing - mom) Discharge date: 09/22/2021 [...] PNC Solution: Ropivacaine 0.2% Rates: Phone number: [phone] (pt), (Qing - mom) Discharge date: 09/22/202109/27 [...] repair Surgeon :?Charles Catheter site: Popliteal PNC Solution:?Ropivacaine 0.2% Rates:? Phone number:?[phone] (pt), (Qing - mom) Discharge date:?09/22/2021 1000- call placed to pt at this time with no answer. Maggi Philippe RN 09/29/2021 12:44 PM Addendum DOS:?09/20/2021? Type of Surgery:?R subtalar arthrodesis and ankle ligament repair Surgeon :?Charles Catheter site: Popliteal PNC Solution:?Ropivacaine 0.2% Rates:? Phone number:?[phone] (pt), (Qing - mom) Discharge date:?09/22/202109/29 1115- [...] Foot pain [M79.673] 09/20/2021 Encounter Status:Closed by BJ MAGGI on 09/29/21 [facility] CONSULT PROGon 09-22-2021 CONSULT PROG HNO ID: [id number] Author: Siva Mcdermott PA-C Service: Pain Management Author Type: Physician Cell Inspector Type: Consult Progress Note Filed: 10/14/2021 10:04 AM Note Text: APS POST-OPERATIVE PROGRESS NOTE SERVICE DATE: 09/22/2021 : 1970 SERVICE TIME: 0851am SURGERY DATE: [...] IV Dilaudid 0.4mg IV q4h PRN ROS CREATIVE RECRUITER: Negative for headaches, negative for seizures, negative [...] for itching. ALLERGIES No Known Allergies Current Facility-Administered Medications Medication Dose Route Frequency atorvastatin 40 mg tab(s) (LIPITOR) 40 mg ORAL DAILY sodium chloride 0.9 % (flush) 2-10 mL (BD POSIFLUSH) 2-10 mL INTRAVENOUS q 12 H ondansetron (PF) 4 mg injection (ZOFRAN) 4 mg INTRAVENOUS q 6 H PRN diphenhydrAMINE 25 mg injection (BENADRYL) 25 mg INTRAVENOUS q 6 H PRN aluminum-magnesium hydroxide-simethicone 200-200-20 mg/5 mL 30 mL (MAALOX,MYLANTA,MAG-A L PLUS) 30 mL ORAL q 6 H PRN magnesium hydroxide 400 mg/5 mL 30 mL (MOM) 30 mL ORAL DAILY PRN bisacodyl 10 mg suppository (DULCOLAX) 10 mg RECTAL DAILY PRN therapeutic multivitamin-minerals tablet (THERA-M PLUS) 1 tablet ORAL DAILY [...] swelling NEUR (more content not included)... Normal [facility] THERAPY NTon 09-22-2021 THERAPY NT HNO ID: [id number] Author: Balta Mahmood PT Service: Physical Therapy Author Type: Physical Therapist Type: Therapy (PT/OT/Speech/Resp) Filed: 09/22/2021 8:57 AM Note Text: Physical Therapy Treatment SERVICE DATE: 09/22/2021 SERVICE TIME: 0830 to 0842 ROOM: [place] [address] Recommended Discharge Disposition: Home Recommended Discharge Disposition Comments: Pt won't be able to complete therapy until he is no longer NWB Anticipated Discharge Needs: Physical Assist at Home;Supervision at Home Physical Assist at Home for: Transfers;Ambulation; Cleaning;Laundry;Meal s;Stairs;Safety;Self Care;Shopping;Transpo rtation Supervision at Home due to: (recent sx) [...] Impairment;Balance Impaired Treatment Interventions: Education;Energy Conservation Training;Joint Mobility;Strengthenin g;Functional Mobility Training;Balance Training Plan for next visit: Gait training Home Environment Patient Lives With: Family (parents) Assistance Available: 24 Hour (24 hr from parents, prn from staff/friends) Entry To Home: No Stairs Number Of Stairs To Bed/Bath: 0 Tub/Shower Type: walk-in Laundry: family assists Equipment Owned: Wheelchair;Wheeled Walker;Crutch(es);Gra b Bars-Toilet;Hand Held Shower;Shower Chair Prior Functional Level: [...] Right Lower Extremity: Weight bearing decreased General Deviations/Observatio ns: Marina decreased;Flexed trunk posture Balance: Static Sitting;Dynamic [...] balance while picking up object off floor -M: 7: Walk 25 feet or more Learning/Educational Needs: Discharge Plan;Equipment;Functi onal Activities/Mobility;P nicole of Care;Precautions;Reha bilitation Techniques and Procedures;Safety Goals for Plan of [...] with: Patient TREATMENT INTERVENTIONS: Therapy Diagnosis: Reduced mobility-other;Decrea sed activities of daily living (ADL);Muscle Weakness (generalized);Abnorma lities of gait and mobility-other;Genera l symptoms and signs-other;Unsteadin ess on feet Interventions Provided: Therapeutic Activity (09712) Therapeutic Activity (19859) Treatment Minutes: 12 $ Therapeutic Activity (02580) Billed Units: 1 unit Training AND education provided in: Anatomy an (more content not included)... Normal [facility] CONSULT PROGon 09-21-2021 CONSULT PROG HNO ID: [id number] Author: Siva Mcdermott PA-C Service: Pain Management Author Type: Physician Cell Inspector Type: Consult Progress Note Filed: 09/21/2021 9:04 [...] control infusing Ropivacaine 0.2% [birth year]/19/[birth year]. Concentration increased yesterday from Ropivacaine 0.1% to [...] IV Dilaudid 0.4mg IV q4h PRN ROS CREATIVE RECRUITER: Negative for headaches, negative for seizures, negative [...] for itching. ALLERGIES No Known Allergies Current Facility-Administered Medications Medication Dose Route Frequency - atorvastatin 40 mg tab(s) (LIPITOR) 40 mg ORAL DAILY - sodium chloride 0.9 % (flush) 2-10 mL (BD POSIFLUSH) 2-10 mL INTRAVENOUS q 12 H - ondansetron (PF) 4 mg injection (ZOFRAN) 4 mg INTRAVENOUS q 6 H PRN - diphenhydrAMINE 25 mg injection (BENADRYL) 25 mg INTRAVENOUS q 6 H PRN - aluminum-magnesium hydroxide-simethicone 200-200-20 mg/5 mL 30 mL (MAALOX,MYLANTA,MAG-A L PLUS) 30 mL ORAL q 6 H PRN - magnesium hydroxide 400 mg/5 mL 30 mL (MOM) 30 mL ORAL DAILY PRN - bisacodyl 10 mg suppository (DULCOLAX) 10 mg RECTAL DAILY PRN - therapeutic multivitamin-minerals tablet (THERA-M PLUS) 1 tablet ORAL DAILY [...] Upper Extremity (more content not included)... Normal [facility] NURSING PROGon 09-21-2021 NURSING PROG HNO ID: [id number] Author: Silvia Arguello RN Service: Nursing Author Type: Registered Nurse Type: Nursing Progress Note Filed: 09/21/2021 7:14 PM Note Text: Nursing Progress Note Patient Name: Sal Padilla Patient Location: [place] [address]/M081-10 Ortho senior energy consultant paged with: m81-10 Lang: fever gone after IS use, but HR 115, O2 Sat 89 RA, now 92 on 2L NC. [place]. [address] Silvia This note was completed by: Silvia Arguello 1909: Ortho senior energy consultant [id number] was repaged about same. Await return page to discuss HR and O2 needs. 1912: spoke to ortho resident senior energy consultant, no new orders / concerns at this time. Will continue monitoring and encourage mobility, hydration PO and IS use aggressively. Normal [facility] THERAPY NTon 09-21-2021 THERAPY NT HNO ID: [id number] Author: Michael Tilley, OT/L Service: Occupational Therapy Author Type: Occupational Therapist Type: Therapy (PT/OT/Speech/Resp) Filed: 09/21/2021 9:57 AM Note Text: Occupational Therapy Evaluation SERVICE DATE: 09/21/2021 SERVICE TIME: 855 to 937 ROOM: [place] [address] Recommended Discharge Disposition: Home Recommended Discharge Disposition Comments: with physical assist PRN for safety. Anticipated Discharge Needs: Physical Assist at Home;Supervision at Home Physical Assist at Home for: Transfers;Ambulation; Cleaning;Laundry;Meal s;Stairs;Safety;Self Care;Shopping;Transpo rtation Supervision at Home due to: (recent sx) Recommended Discharge Equipment: To Be Determined (May benefit from proposal director, sock aide, LH shoe horn, and/or BSC) [...] Care;Decreased Range Of Motion;Decreased Activity Tolerance;Decreased Strength Cognition/Communicati on Deficits Responsiveness: Alert, Awake Cognitive Activities Performed: AANDOx4 Treatment Interventions: Education;Self Care / Home Management;Strengthen ing;Functional Mobility Training Plan for next visit: Dressing training, Shower/tub transfer training, Standing balance, Standing tolerance, Fall prevention Home Environment Patient Lives With: Family (parents) Assistance Available: 24 Hour (24 hr from parents, prn from staff/friends) Entry To Home: No Stairs Number Of Stairs To Bed/Bath: 0 Tub/Shower Type: walk-in Laundry: family assists Equipment Owned: Wheelchair;Wheeled Walker;Crutch(es);Gra b Bars-Toilet;Hand Held Shower;Shower Chair Prior Functional Level: [...] indicate activity not attempted Learning/Educational Needs: Discharge Plan;Equipment;Family Education/Training;Fu nctional Activities/Mobility;R ehabilitation Techniques and Procedures;Safety;Awilda f Care Goals for Plan of Care: Patient [...] with: Patient TREATMENT INTERVENTIONS: Therapy Diagnosis: Reduced mobility-other;Decrea sed activities of daily living (ADL);Muscle Weakness (generalized) Interventions Provided: Evaluation;Self Fci Management (73283) $ Evaluation-Low (69183) Billed Units: 1 unit Self Fci Management (44796) Treatment Minutes: 23 $ Self Fci Management (42859) Billed Units: 2 units Training AND education provided in: Adaptive equipment / DME, Activity adaption / compensatory strategies, Bed mobility, Benefits of in-hospital mobility, Discharge planning, Functional mobility involving ADLs, Lower extremity bathing, Lower ex (more content not included)... Normal [facility] THERAPY NT HNO ID: [id number] Author: Balta Mahmood PT Service: Physical Therapy Author Type: Physical Therapist Type: Therapy (PT/OT/Speech/Resp) Filed: 09/21/2021 9:11 AM Note Text: Physical Therapy Evaluation SERVICE DATE: 09/21/2021 SERVICE TIME: 08 to 0855 ROOM: [place] [address] Recommended Discharge Disposition: Home Recommended Discharge Disposition Comments: Pt won't be able to complete therapy until he is no longer NWB Anticipated Discharge Needs: Physical Assist at Home;Supervision at Home Physical Assist at Home for: Cleaning;Laundry;Shop ping;Transportation Supervision at Home due to: (recent surgery) [...] Impairment;Balance Impaired Treatment Interventions: Education;Energy Conservation Training;Joint Mobility;Strengthenin g;Functional Mobility Training;Balance Training Plan for next visit: [...] Right Lower Extremity: Weight bearing decreased General Deviations/Observatio ns: Marina decreased;Flexed trunk posture Balance: Static Sitting;Dynamic [...] 25 feet or more Learning/Educational Needs: Discharge Plan;Equipment;Functi onal Activities/Mobility;P nicole of Care;Precautions;Reha bilitation Techniques and Procedures;Safety Goals for Plan of [...] with: Patient TREATMENT INTERVENTIONS: Therapy Diagnosis: Reduced mobility-other;Decrea sed activities of daily living (ADL);Muscle Weakness (generalized);Abnorma lities of gait and mobility-other;Genera l symptoms and signs-other;Unsteadin ess on feet Interventions Provided: Evaluation;Therapeuti c Activity (91613);Gait Training (48153) $ Evaluation-Low (24880) Billed Units: 1 unit Therapeutic Activity (36776) Treatment Minutes: 23 $ Therapeutic Activity (13634) Billed Units: 2 units Gait Training (13241) Treatment Minutes: 15 $ Gait Training (70280) Billed Units: 1 unit Training A (more content not included)... Normal [facility] ANES POSTPROC EVALon 022 ANES POSTPROC EVAL HNO ID: [id number] Author: Ricco Melo MD Service: ? Author Type: Anesthesiologist Type: Anesthesia Postprocedure Evaluation Filed: 09/20/2021 1:06 PM Note Text: POST ANESTHESIA EVALUATION NOTE : 1970 Procedure Summary Date: 09/20/21 Room / Location: [address] [facility] Anesthesia Start: 727 Anesthesia Stop: 1258 Procedures: [...] September 20, 2021 TIME: 1:03 PM CSN: [id number] Normal [facility] ANES PRE-OPon 09-20-2021 ANES PRE-OP HNO ID: [id number] Author: Gucci Camacho MD Service: ? Author Type: Anesthesiologist Type: Anesthesia Preprocedure Evaluation Filed: 09/20/2021 7:54 AM Note Text: ANESTHESIOLOGY DAY OF SURGERY NOTE : 1970 Procedure Information Anesthesia Start Date/Time: 09/20/21 0728 Procedures: ARTHRODESIS SUBTALAR (Right Ankle) REPAIR ANKLE LIGAMENT SECONDARY DISRUPTED, COLLATERAL (Right Ankle) GRAFT BONE ILIAC CREST (Right Pelvis) LENGTHENING TENDON EXTREMITY LOWER (Right Ankle) Location: MAIN [facility] Surgeons: Milla Soto MD [...] 0720 Vitals shown include unvalidated device data. Facility-Administered Medications as of 09/20/2021 Medication Dose Route [...] September 20, 2021 TIME: 7:54 AM CSN: [id number] Normal [facility] BRIEF OP NOTon 09-20-2021 BRIEF OP NOT HNO ID: [id number] Author: Adrian Han MD Service: Orthopaedic Surgery Author Type: Fellow Type: Brief Op Note Filed: 09/20/2021 12:22 PM Note Text: BRIEF OPERATIVE / PROCEDURE NOTE LOG ID: [id number] SURGERY/PROCEDURE DATE: 09/20/2021 INCISION/PROCEDURE START TIME: 8:30 AM INCISION CLOSE/PROCEDURE END TIME: SURGEON(S)/PROCEDURAL IST(S) AND METAL STAMPER(S): Surgeon(s) and Role: * Milla Soto MD - Primary * Adrian Han MD - Fellow Magazine Publisher: Michael Souza SA SURGERY/PROCEDURE(S): Right foot cavus repair ANESTHESIA: General FINDINGS: Right foot cavus ESTIMATED BLOOD LOSS: 30 mls SPECIMENS: None COMPLICATIONS: None . PRE-OP/PRE-PROCEDURE DIAGNOSIS: Right foot cavus POST-OP/POST-PROCEDUR E DIAGNOSIS: Same as Preop SIGNATURE: Adrian Han MD PATIENT NAME: Sal Padilla DATE: September 20, 2021 TIME: 12:21 PM [facility] CNDSon 09-20-2021 CNDS HNO ID: [id number] Author: Yun Cross MD Service: Orthopaedic Surgery [...] The patient was electively admitted to the [facility] on 09/20/2021. Surgery was scheduled and on [...] Provider Department Center 09/27/2021 2:40 PM [facility] Discharge Medications: Current Discharge Medication List START [...] 2021 TIME (more content not included)... [facility]-20-2021 CONSULT HNO ID: [id number] Author: Jorgito Galaviz DO Service: Anesthesiology Author [...] 24 hours History of chronic pain: no JAVA LEAD DEVELOPER Patient on IV JAVA LEAD DEVELOPER?: No , Block Candidate for Pre-Op Block?: [...] 09/09/2021 Platelet Count 177 09/09/2021 Radiology: N/A Lines/Drains/Airways: Lines, Drains, and Airways Line Peripheral 09/20/21 [...] No Known Allergies Current Hospital Medications Current Facility-Administered Medications Medication Dose Route Frequency - [MAR Hold due to Transfer] lidocaine (PF) 10 mg/mL (1 %) 1-2 mg injection (XYLOCAINE) 0.1-0.2 mL INTRADERMAL PRN Or - [MAR Hold due to Transfer] lidocaine 1% 0.25 mL subcutaneous j-tip syringe (XYLOCAINE) 0.25 mL SUBCUTANEOUS PRN - [MAR Hold due to Transfer] lactated ringers iv infu (more content not included)... Normal [facility] NURSING PROGon 09-20-2021 NURSING PROG HNO ID: [id number] Author: Eunice Foreman RN Service: ? Author Type: Registered Nurse Type: Nursing Progress Note Filed: 09/20/2021 9:55 PM Note Text: Pt has not voided since catheter removal at 1300. Bladder scanned for 327 ml in bladder. Ortho paged to clarify is pt should be straigh cathd or have a galvan inserted. Normal [facility] OPERATIVE NOon 09-20-2021 OPERATIVE NO HNO ID: [id number] Author: Milla Soto MD Service: Orthopaedic Surgery Author Type: Physician Type: Operative Report Filed: 09/20/2021 1:20 PM Note Text: [place] [address] [place] ?? OPERATIVE REPORT ?? NAME:?NORA PADILLA ?? CLINIC#:?[id number] ?? DATE:?09/20/2021?AG E:?53 ? SURGEON: Milla Soto M.D. ?? METAL STAMPER:???Adrian Han,?Bj.Alfred.? METAL STAMPER: ? I was present for and participated [...] previously underwent failed cavovarus foot reconstruction at [facility]. 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 5-mm cannulated lag screws and one 7.3 lag [...] across the joint. ?These were ?then exchanged for?two?Accutrak?7.5- mm cannulated lag screws and one 7.3 mm lag screw.??Good fixation was achieved. ?Fluoroscopic imaging demonstrated appropriate position of hardware.?At that time it was noted that the achilles was tight. Therefore a Rene achilles tendon lengthening was performed.?Additional ly the lateral ligaments were noted to be [...] with 3-0/4-0?Monoc (more content not included)... Normal [facility] XR ANKLE 3V AP/LAT/OBL RTon 09-20-2021 [...] refer to surgical note for further details. Department Clinician: PSCMariposa Transcribe Date/Time: Sep 20 2021 11:49A Dictated by : VU GARY MD This examination was interpreted and the report reviewed and electronically signed by: VU GARY MD on Sep 20 2021 11:50AM EST [id number] Normal [facility] Basic metabolic 2000 panelon 09-09-2021 Anion gap [Moles/Vol] 10 mmol/L Normal 9-18 [facility] Comment on above: Order Comment: Speci men Type: BLOOD SPECIMENOrdering Facility: [facility] Address: [address] [place] [address] Performed By: #### 2 4321-2 ####[facility] [id number] [place] [address] [place] Calcium [Mass/Vol] 9.5 mg/dL Normal 8.5-10.2 [facility] Comment on above: Order Comment: Speci men Type: BLOOD SPECIMENOrdering Facility: [facility] Address: [address] [place] [address] Performed By: #### 2 4321-2 ####[facility] [id number] [place] [address] [place] Chloride [Moles/Vol] 104 mmol/L Normal 97-105 [facility] Comment on above: Order Comment: Speci men Type: BLOOD SPECIMENOrdering Facility: [facility] Address: [address] [place] [address] Performed By: #### 2 4321-2 ####[facility] [id number] [place] [address] [place] CO2 [Moles/Vol] 23 mmol/L Normal 22-30 [facility] Comment on above: Order Comment: Speci men Type: BLOOD SPECIMENOrdering Facility: [facility] Address: [address] [place] [address] Performed By: #### 2 4321-2 ####[facility] [id number] [address] STATES OF [facility] Creatinine [Mass/Vol] 0.88 mg/dL Normal 0.73-1.22 [facility] Comment on above: Order Comment: Speci men Type: BLOOD SPECIMENOrdering Facility: [facility] Address: [address] [place] [address] Performed By: #### 2 4321-2 ####[facility] [id number] [address] ESTIMATED GLOMERULAR FILTRATION RATE 103 mL/min/1.73m??? Normal >=60 [facility] Comment on above: Order Comment: Speci men Type: BLOOD SPECIMENOrdering Facility: [facility] Address: [address] [place] [address] Result Comment: Nell mated Glomerular Filtration Rate [...] actual GFR. Performed By: #### 2 4321-2 ####[facility] [id number] [place] [address] [place] Glucose [Mass/Vol] 104 mg/dL High 74-99 [facility] Comment on above: Order Comment: Speci men Type: BLOOD SPECIMENOrdering Facility: [facility] Address: [address] [place] [address] Result Comment: The [place] Diabetes Association (ADA) provides guidance for cutoff [...] Standards of Medical Care in Diabetes 2016, [place] [employer]. Diabetes Care. 2016.39(Suppl 1). Performed By: #### 2 4321-2 ####[facility] MILLNAIMAWNCLIA [id number] [place] [address] [place] Potassium [Moles/Vol] 3.8 mmol/L Normal 3.7-5.1 [facility] Comment on above: Order Comment: Speci men Type: BLOOD SPECIMENOrdering Facility: [facility] Address: [address] [place], [place] [address] Performed By: #### 2 4321-2 ####[facility] MILLNAIMAWNCLIA [id number] [place] [address] [place] Sodium [Moles/Vol] 137 mmol/L Normal 136-144 [facility] Comment on above: Order Comment: Speci men Type: BLOOD SPECIMENOrdering Facility: [facility] Address: [address] [place], [place] [address] Performed By: #### 2 4321-2 ####[facility] [id number] [place] [address] [place] Urea nitrogen [Mass/Vol] 16 mg/dL Normal 9-24 [facility] Comment on above: Order Comment: Speci men Type: BLOOD SPECIMENOrdering Facility: [facility] Address: [address] [place] [address] Performed By: #### 2 4321-2 ####[facility] [id number] [place] [address] [place] CBC W Auto Differential pane l (Bld)on 09-09-2021 Basophils (Bld) [#/Vol] 0.06 10*3/uL Normal <0.11 [facility] Comment on above: Order Comment: Speci men Type: BLOOD SPECIMENOrdering Facility: [facility] Address: [address] [place] [address] Performed By: #### 5 7021-8 ####[facility] [id number] [place] [address] [place] Basophils/100 WBC (Bld) 0.9 % Normal [facility] Comment on above: Order Comment: Speci men Type: BLOOD SPECIMENOrdering Facility: [facility] Address: [address] [place] [address] Performed By: #### 5 7021-8 ####[facility] [id number] [place] [address] [place] Differential cell count method Nom (Bld) Auto Normal [facility] Comment on above: Order Comment: Speci men Type: BLOOD SPECIMENOrdering Facility: [facility] Address: [address] [place] [address] Performed By: #### 5 7021-8 ####[facility] [id number] [place] [address] [place] Eosinophils (Bld) [#/Vol] 0.20 10*3/uL Normal <0.46 [facility] Comment on above: Order Comment: Speci men Type: BLOOD SPECIMENOrdering Facility: [facility] Address: [address] [place] [address] Performed By: #### 5 7021-8 ####[facility] [id number] [place] [address] [place] Eosinophils/100 WBC (Bld) 3.0 % Normal [facility] Comment on above: Order Comment: Speci men Type: BLOOD SPECIMENOrdering Facility: [facility] Address: [address] [place] [address] Performed By: #### 5 7021-8 ####[facility] [id number] [place] [address] [place] Erythrocyte distribution width (RBC) [Ratio] 13.2 % Normal 11.5-15.0 [facility] Comment on above: Order Comment: Speci men Type: BLOOD SPECIMENOrdering Facility: [facility] Address: [address] [place] [address] Performed By: #### 5 7021-8 ####[facility] [id number] [place] [address] [place] Hematocrit (Bld) [Volume fraction] 45.3 % Normal 39.0-51.0 [facility] Comment on above: Order Comment: Speci men Type: BLOOD SPECIMENOrdering Facility: [facility] Address: [address] [place] [address] Performed By: #### 5 7021-8 ####[facility] [id number] [place] [address] [place] Hemoglobin (Bld) [Mass/Vol] 15.6 g/dL Normal 13.0-17.0 [facility] Comment on above: Order Comment: Speci men Type: BLOOD SPECIMENOrdering Facility: [facility] Address: [address] [place] [address] Performed By: #### 5 7021-8 ####[facility] GEOR[facility]IE [id number] [address] IMMATURE GRAN % 0.4 % Normal [facility] Comment on above: Order Comment: Speci men Type: BLOOD SPECIMENOrdering Facility: [facility] Address: [address] [place] [address] Performed By: #### 5 7021-8 ####[facility] [id number] [place] [address] [place] IMMATURE GRAN ABS 0.03 k/uL Normal <0.10 [facility] Comment on above: Order Comment: Speci men Type: BLOOD SPECIMENOrdering Facility: [facility] Address: [address] [place] [address] Performed By: #### 5 7021-8 ####[facility] [id number] [place] [address] [place] Lymphocytes (Bld) [#/Vol] 2.41 10*3/uL Normal 1.00-4.00 [facility] Comment on above: Order Comment: Speci men Type: BLOOD SPECIMENOrdering Facility: [facility] Address: [address] [place] [address] Performed By: #### 5 7021-8 ####[facility]ENTERDIANEERVINA [id number] [place] [address] [facility] [place] Lymphocytes/100 WBC (Bld) 35.9 % Normal [facility] Comment on above: Order Comment: Speci men Type: BLOOD SPECIMENOrdering Facility: [facility] Address: [address] [place] [address] Performed By: #### 5 7021-8 ####[facility] FERNANDOELLERSLIENCKAMALA [id number] [place] [address] [place] MCH (RBC) [Entitic mass] 28.9 pg Normal 26.0-34.0 [facility] Comment on above: Order Comment: Speci men Type: BLOOD SPECIMENOrdering Facility: [facility] Address: [address] [place] [address] Performed By: #### 5 7021-8 ####[facility] [id number] [place] [address] [place] MCHC (RBC) [Mass/Vol] 34.4 g/dL Normal 30.5-36.0 [facility] Comment on above: Order Comment: Speci men Type: BLOOD SPECIMENOrdering Facility: [facility] Address: [address] [place] [address] Performed By: #### 5 7021-8 ####[facility] [id number] [place] [address] [place] MCV (RBC) [Entitic vol] 84.0 fL Normal 80.0-100.0 [facility] Comment on above: Order Comment: Speci men Type: BLOOD SPECIMENOrdering Facility: [facility] Address: [address] [place] [address] Performed By: #### 5 7021-8 ####[facility] [id number] [place] [address] [place] Monocytes (Bld) [#/Vol] 0.66 10*3/uL Normal <0.87 [facility] Comment on above: Order Comment: Speci men Type: BLOOD SPECIMENOrdering Facility: [facility] Address: [address] [place] [address] Performed By: #### 5 7021-8 ####[facility] [id number] [place] [address] [place] Monocytes/100 WBC (Bld) 9.8 % Normal [facility] Comment on above: Order Comment: Speci men Type: BLOOD SPECIMENOrdering Facility: [facility] Address: [address] [place] [address] Performed By: #### 5 7021-8 ####[facility]ITALWNCLIA [id number] [place] [address] [place] Neutrophils (Bld) [#/Vol] 3.36 10*3/uL Normal 1.45-7.50 [facility] Comment on above: Order Comment: Speci men Type: BLOOD SPECIMENOrdering Facility: [facility] Address: [address] [place] [address] Performed By: #### 5 7021-8 ####[facility] [id number] [place] [address] [place] Neutrophils/100 WBC (Bld) 50.0 % Normal [facility] Comment on above: Order Comment: Speci men Type: BLOOD SPECIMENOrdering Facility: [facility] Address: [address] [place] [address] Performed By: #### 5 7021-8 ####[facility] [id number] [place] [address] [place] Nucleated RBC (Bld) [#/Vol] 10*3/uL Normal <0.01 [facility] Comment on above: Order Comment: Speci men Type: BLOOD SPECIMENOrdering Facility: [facility] Address: [address] [place] [address] Performed By: #### 5 7021-8 ####[facility] [id number] [place] [address] [place] Nucleated RBC/100 WBC (Bld) [Ratio] 0.0 /100 WBC Normal [facility] Comment on above: Order Comment: Speci men Type: BLOOD SPECIMENOrdering Facility: [facility] Address: [address] [place] [address] Performed By: #### 5 7021-8 ####[facility] ALEJANDRO JACQUES [id number] [place] [address] [place] Platelet mean volume (Bld) [Entitic vol] 10.4 fL Normal 9.0-12.7 [facility] Comment on above: Order Comment: Speci men Type: BLOOD SPECIMENOrdering Facility: [facility] Address: [address] [place] [address] Performed By: #### 5 7021-8 ####[facility] FERNANDOELLERSLIENCERVINJazzy [id number] [place] [address] [place] Platelets (Bld) [#/Vol] 177 10*3/uL Normal 150-400 [facility] Comment on above: Order Comment: Speci men Type: BLOOD SPECIMENOrdering Facility: [facility] Address: [address] [place] [address] Performed By: #### 5 7021-8 ####[facility]ALSILVANA KINGELLERSLIEDIANELIA [id number] [place] [address] [place] RBC (Bld) [#/Vol] 5.39 10*6/uL Normal 4.20-6.00 [facility] Comment on above: Order Comment: Speci men Type: BLOOD SPECIMENOrdering Facility: [facility] Address: [address] [place], [place] [address] Performed By: #### 5 7021-8 ####[facility] FERNANDOELLERSLIENCLIA [id number] [place] [address] [place] WBC (Bld) [#/Vol] 6.72 10*3/uL Normal 3.70-11.00 [facility] Comment on above: Order Comment: Speci men Type: BLOOD SPECIMENOrdering Facility: [facility] Address: [address] [place] [address] Performed By: #### 5 7021-8 ####[facility]JANDROSAL[facility] [id number] [place] [address] [place] Elda 09-09-2021 CNPN Telephone (MNPACC) SAL PADILLA ([id number]) 1970 M Date Time Provider Department 09/09/21 OFELIA COLUNGA [facility] During your visit today, we recorded the following information about you: Ofelia Colunga RN 09/09/2021 11:15 AM Signed Spoke directly with patient regarding ordered labs needed for surgery. He stated he was going today to [place] lab to have drawn. Allergies As of [...] Status:Closed by OFELIA COLUNGA on 09/09/21 Normal [facility] HISTORY PHYSICALon 05-27-202 2 HISTORY PHYSICAL HNO ID: [id number] Author: Nini Borja PA-C Service: ? Author Type: Physician Cell Inspector Type: HANDP Filed: 09/02/2021 12:06 PM Note Text: PREANESTHESIA CONSULT CLINIC TELEHEALTH VISIT Patient has been identified by name and date of : Yes This is a virtual visit using Blosonhart video visit. It require patient-provider interaction for [...] 2020 - KNEE RIGHT OP SURGERY Right 2020 torn meniscus repair FAMILY HISTORY Problem Relation [...] fevers. Neuro: No history of TIA's, stroke, CREATIVE RECRUITER tumor, impaired sensorium, hemiplegia, paraplegia or quadraplegia. [...] or stents. Denies rest pain, gangrene or revascularization/amp utation for PVD. No history of cardiovascular symptoms or problems.+hyperlipide maurilio GI: No history of GI symptoms or [...] pain or (more content not included)... Normal [facility] CNPNon 08-26-2021 CNPN Telephone (ORTHMN) SAL PADILLA ([id number]) 1970 M Date Time Provider Department 08/26/21 [...] Encounter Status:Closed by QING ALVAREZ on 08/26/21 Normal [facility] Efren 08-25-2021 CNOV Office Visit (ORMIDD ) SAL PADILLA ([id number]) 1970 M Date Time Provider Department 08/25/21 [...] Milla Soto MD Referring Provider: MILLA SOTO [[id number]] Allergies As of Date: 08/25/2021 (No Known Allergies) Date Reviewed: 08/25/2021 Reviewed by: Shelby Covington Ma - Fully Assessed Reason for Visit: Follow Up [171] Primary Visit Diagnosis:Acquired cavovarus deformity of foot, 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 There is chronic bony protuberance/irregula rity in the adjacent lateral surface of the [...] Healed calcaneal osteotomy status post hardware removal. Department Clinician: JACQUIE Transcribe Date/Time: Aug 14 2021 10:17A Dictated by : RAAD DUMONT MD This examination was interpreted and the report reviewed and electronically signed by: RAAD DUMONT MD on Aug 14 2021 10:30AM EST [id number] Normal [facility] CNOVon 08-11-2021 CNOV Office Visit (ORMIDD ) SAL PADILLA ([id number]) 1970 M Date Time Provider Department 08/11/21 9:30 AM MILLA SOTO During your visit today, we recorded the following information about you: Weight Height 109.8 kg 1.803 m Milal Soto MD 08/13/2021 2:26 PM Signed Incision CDI Dry dressing changes Partial WB Vit D Fu 2 weeks for sutures, MR review, pick surgery date Milla Soto MD Referring Provider: MILLA SOTO [[id number]] Allergies As of Date: 08/11/2021 (No Known Allergies) Date Reviewed: 08/11/2021 Reviewed by: Verónica Moreland - Fully Assessed Reason for Visit: Follow Up [171] Post Op [174] Primary Visit Diagnosis:Cavovarus deformity of foot [Q66.10] Order(s):PARKING FOR HANDICAPPED [[id number]] Order #: [id number] Prescriptions as of 08/13/2021 - acetaminophen (TYLENOL [...] Encounter Status:Closed by MILLA SOTO on 08/13/21 [facility] ANES POSTPROC EVALon 022 ANES POSTPROC EVAL HNO ID: [id number] Author: Matthew Rodriguez MD Service: Anesthesiology Author Type: Anesthesiologist Type: Anesthesia Postprocedure Evaluation Filed: 08/04/2021 1:03 PM Note Text: POST ANESTHESIA EVALUATION NOTE : 1970 Procedure Summary Date: 08/04/21 Room / Location: [address] Anesthesia Start: 739 Anesthesia Stop: 852 [...] August 04, 2021 TIME: 1:03 PM CSN: [id number] Normal [facility] ANES PRE-OPon 08-04-2021 ANES PRE-OP HNO ID: [id number] Author: Matthew Rodriguez MD Service: Anesthesiology Author Type: Anesthesiologist Type: Anesthesia Preprocedure Evaluation Filed: 08/04/2021 7:02 AM Note Text: ANESTHESIOLOGY DAY OF SURGERY NOTE : 1970 Procedure Information Date/Time: 08/04/21729 Procedure: REMOVAL HARDWARE FOOT (Right Ankle) Location: [address] Surgeons: Milla Soto MD Estimated body mass index is 34.03 kg/m? as calculated from the following: Height as of 07/29/21: 180.3 cm (5' 11). Weight as of 07/29/21: 110.7 kg (244 lb). Most recent hematocrit and potassium results: No results found for this basename: HCT,HEMATOCRIT,K,POTA SSIUM Relevant Problems CARDIO (+) Cerebral aneurysm I [...] and consent discussed: yes. Patient / Responsible Republican agrees to proceed: yes Patient / Surrogate [...] data found for the desired time range. Facility-Administered Medications as of 08/04/2021 Medication Dose Route [...] Sal Padilla DATE: August 04, 2021 TIME: 7:01 AM CSN: [id number] [facility] BRIEF OP NOTon 08-04-2021 BRIEF OP NOT HNO ID: [id number] Author: Ck Bledsoe MD Service: Orthopaedic Surgery Author Type: Resident Type: Brief Op Note Filed: 08/04/2021 9:00 AM Note Text: BRIEF OP NOTE LOG ID: [id number] Surgery/Procedure Date: 08/04/2021 Incision/Procedure Start Time: 8:22 AM Incision Close/Procedure End Time: 8:41 AM Surgeon(s)/Procedural ist(s) and Cell Inspector(s): Surgeon(s) and Role: * Milla Soto MD - Primary * Ck Bledsoe MD - Fellow Procedure(s): Hardware removal from right calcaneus Anesthesia: General Findings: Healed calcaneal osteotomy Estimated Blood Loss: 10 mls Specimens: * No specimens in log * Implants: * No implants in log * Complications: None Pre-Op/Pre-Procedure Diagnosis: Failed cavovarus foot reconstruction Post-Op/Post-Procedur e Diagnosis: Same SIGNATURE: Ck Bledsoe MD PATIENT NAME: Sal Padilla DATE: August 04, 2021 TIME: 8:59 AM PAGER/CONTACT #: [phone] [facility] HISTORY PHYSICALon HISTORY PHYSICAL HNO ID: [id number] Author: Milla Soto MD Service: Orthopaedic Surgery [...] August 04, 2021 TIME: 7:45 AM Normal [facility] OPERATIVE NOon 08-04-2021 OPERATIVE NO HNO ID: [id number] Author: Milla Soto MD Service: Orthopaedic Surgery Author Type: Physician Type: Operative Report Filed: 08/04/2021 9:08 AM Note Text: [place] [address] [place] ?? OPERATIVE REPORT ?? NAME:?SAL PADILLA ?? CLINIC#:?[id number] ?? AGE:?40 DATE OF PROCEDURE:?08/04/2021 ? ? SURGEON 1: ??Milla Soto M.D. SURGEON 2: ? METAL STAMPER 1: ?Ck Bledsoe MD METAL STAMPER 2: ? OPERATION: 1. ?Right foot hardware [...] heel. Two screws were removed and confirmed fluoroscopically.?The tourniquet was then let down and?the wounds [...] x2. ?? CONDITION: ?Stable. ?Milla Soto MD Normal [facility] Basophil percentageon 2021 Bilirubin [Mass/Vol] 0.70 mg/dL 0.20-1.00 [facility] Work Phone: Comment on above: For patients on eltr ombopag therapy, use of Dimension [place] TBIL is not recommended. Chloride [Moles/Vol] 105 mmol/L 98-107 [facility] Work Phone: Cholesterol [Mass/Vol] 169 mg/dL <200 [facility] Work Phone: Comment on above: <200 mg/dL Desirable 200-240 mg/dL Borderline >240 mg/dL High Risk Glucose [Mass/Vol] 100 mg/dL 74-[address] [facility] Work Phone: Comment on above: Fasting Glucose resu lt from 100 to 125 mg/dL suggests IMPAIRED HOMEOSTASIS per A.D.A. criteria. Potassium [Moles/Vol] 4.0 mmol/L 3.5-5.1 [facility] Work Phone: Protein [Mass/Vol] 7.3 g/dL 6.4-8.[address] [facility] Work Phone: Sodium [Moles/Vol] 138 mmol/L 136-[address] [facility] Work Phone: Triglyceride [Mass/Vol] 257 mg/dL <199 [facility] Work Phone: Comment on above: The drugs N-Acetylcy steine and Metamizole may falsely depress this assay.Serum Triglycerides Reference Interval Normal <150 mg/dL Borderline high 150 - 199 mg/dL High 200 - 499 mg/dL Very High > or = 500 mg/dL Laboratory - Chemistry and C hemistry - challengeon 08-02-2021 ALP [Catalytic activity/Vol] 94 U/L 45-117 [facility] Work Phone: ALT [Catalytic activity/Vol] 55 U/L 16-61 [facility] Work Phone: CO2 [Moles/Vol] 30.0 mmol/L 21.0-32.0 [facility] Work Phone: Globulin (S) [Mass/Vol] 3.5 g/dL 2.2-4.2 [facility] Work Phone: Urea nitrogen/Creatinine [Mass ratio] 13.9 mg/mg 10-20 [facility] Work Phone: No Panel Informationon 08-02 Estimated GFR (MDRD) Amer 109 mL/min >60 [facility] Work Phone: Comment on above: GFR Calc Estimated GFR (MDRD) Non-Af Amer 90 mL/min >60 [facility] Work Phone: Comment on above: Non- GFR Calc Prostate Specific Antigen Screen 0.81 ng/mL 0.00-4.00 [facility] Work Phone: Comment on above: This test was perfor med using the TPSA assay method for [employer] chemistry system. Values obtained with differentassay methods cannot be used interchangably.When changing PSA assays in the course of monitoring apatient, additional sequential testing should be carriedout to confirm baseline values. Serum or plasma albumin adán urement (mass/volume)on 08-02-2021 Albumin [Mass/Vol] 3.8 g/dL 3.2-5.[address] [facility] Work Phone: Serum or plasma albumin/glob ulin mass ratioon 08-02-2021 Albumin/Globulin [Mass ratio] 1.1 {ratio} 0.9-2.4 [facility] Work Phone: Serum or plasma calcium adán urement (mass/volume)on 08-02-2021 Calcium [Mass/Vol] 9.4 mg/dL 8.5-10.[address] [facility] Work Phone: Serum or plasma cholesterol in HDL measurement (mass/volume)on 08-02-2021 Cholesterol in HDL [Mass/Vol] 36 mg/dL >40 [facility] Work Phone: Comment on above: The drugs N-Acetylcy steine and Metamizole may falsely depress this assay. Reference Range HDL <40 mg/dL Low HDL Cholesterol HDL >or= 60 mg/dL High HDL Cholesterol Serum or plasma cholesterol in VLDL measurement (mass/volume)on 08-02-2021 Cholesterol in VLDL [Mass/Vol] 51 mg/dL 5-40 [facility] Work Phone: Serum or plasma creatinine m easurement (mass/volume)on 08-02-2021 Creatinine [Mass/Vol] 0.94 mg/dL 0.70-1.30 [facility] Work Phone: Comment on above: The validity of the calculated GFR & GFRAA in patients over 70 years has not been determined. Clinical correlation is essential. Serum or plasma low density lipoprotein (LDL) cholesterol measurement (mass/volume)on 08-02-2021 Cholesterol in LDL [Mass/Vol] 82 mg/dL 0-130 [facility] Work Phone: Serum or plasma urea nitroge n measurement (mass/volume)on 08-02-2021 Urea nitrogen [Mass/Vol] 13 mg/dL 7-18 [facility] Work Phone: Thin prep Papanicolaou smear with manual screeningon 08-02-2021 Thin prep Papanicolaou smear with manual screening 20 U/L 15-37 [facility] Work Phone: Thin prep Papanicolaou smear with manual screening 3 5-15 [facility] Work Phone: HISTORY PHYSICALon 2 HISTORY PHYSICAL HNO ID: [id number] Author: Ana Guillermo PA-C Service: ? Author Type: Physician Cell Inspector Type: HANDP Filed: 07/29/2021 2:42 PM Note [...] He had foot surgery last December in [place]. He was still having pain in June. [...] Obesity Neuro: No history of TIA's, stroke, CREATIVE RECRUITER tumor, impaired sensorium, hemiplegia, paraplegia or quadraplegia. [...] or stents. Denies rest pain, gangrene or revascularization/amp utation for PVD. + HLD. GI: No history [...] results wi (more content not included)... Normal [facility] CNOVon 07-28-2021 CNOV Office Visit (ORMIDD ) SAL PADILLA ([id number]) 1970 M Date Time Provider Department 07/28/21 11:30 AM MILLA SOTO During your visit today, we recorded the following information about you: Weight Height 108.9 kg 1.803 m Milla Soto MD 07/28/2021 2:37 PM Addendum July 28, 2021 HPI: Sal Padilla is a 51 yo male who had foot surgery on right in [place] in December 2020. Reports a broken ankle [...] disturbance, mood disorder and recent psychosocial stressors. HEMATOLOGIC/LYMPHATIC /IMMUNOLOGIC:Negative for prolonged bleeding, bruising easily, and swollen [...] will also start VIT D. Return to (more content not included)... Normal [facility] No Panel Informationon 07-28 IMPRESSION: POSTSURGICAL AND MILD DEGENERATIVE CHANGES Department Clinician: JACQUIE Transcribe Date/Time: Jul 28 2021 4:57P Dictated by : CHARLENE SHEFFIELD MD This examination was interpreted and the report reviewed and electronically signed by: CHARLENE SHEFFIELD MD on Jul 28 2021 5:03PM EST ZZZ_DO_NOT_USE _DIVISION OF RADIOLOGY Radiology Study observation (narrative) [facility] No Panel InformationOrdered By: Ccf Provider on 07-28-2021 [facility] XR ANKLE 3V AP/LAT/OBL RTon 07-28-2021 XR [...] laterally. IMPRESSION: POSTSURGICAL AND MILD DEGENERATIVE CHANGES Department Clinician: JACQUIE Transcribe Date/Time: Jul 28 2021 4:57P Dictated by : CHARLENE SHEFFIELD MD This examination was interpreted and the report reviewed and electronically signed by: CHARLENE SHEFFIELD MD on Jul 28 2021 5:03PM EST [id number] Normal [facility] XR Ankle - right AP and [...] soft tissue swelling about the ankle laterally. ZZZ_DO_NOT_USE _DIVISION OF RADIOLOGY Provider, [facility] - 07/28/2021 * * *Final Report* * [...] IMPRESSION IMPRESSION: POSTSURGICAL AND MILD DEGENERATIVE CHANGES Department Clinician: JACQUIE Transcribe Date/Time: Jul 28 2021 4:57P Dictated by : CHARLENE SHEFFIELD MD This examination was interpreted and the report reviewed and electronically signed by: CHARLENE SHEFFIELD MD on Jul 28 2021 5:03PM EST [facility] XR FOOT 3V AP/LAT/OBL RTon 0 07-28-2021 [...] laterally. IMPRESSION: POSTSURGICAL AND MILD DEGENERATIVE CHANGES Department Clinician: [facility] Transcribe Date/Time: Jul 28 2021 4:57P Dictated by : CHARLENE SHEFFIELD MD This examination was interpreted and the report reviewed and electronically signed by: CHARLENE SHEFFIELD MD on Jul 28 2021 5:03PM EST [id number] Normal [facility] XR Foot - right AP and [...] soft tissue swelling about the ankle laterally. LenchoZZ_DO_NOT_USE _DIVISION OF RADIOLOGY Provider, [facility] - 07/28/2021 * * *Final Report* * [...] IMPRESSION IMPRESSION: POSTSURGICAL AND MILD DEGENERATIVE CHANGES Department Clinician: [facility] Transcribe Date/Time: Jul 28 2021 4:57P Dictated by : CHARLENE SHEFFIELD MD This examination was interpreted and the report reviewed and electronically signed by: CHARLENE SHEFFIELD MD on Jul 28 2021 5:03PM [facility] CT ANGIO BRAINon 06-06-2021 CT ANGIO BRAIN EXAM: CT ANGIO BRAIN , 06/02/2021 10:39 AM CLINICAL INDICATIONS: 50 years [...] are unremarkable. No major anatomical variations at [place]. Incidentally, there are 2 left A1 segments. No aneurysm identified at the anterior commuting artery. Anterior, middle and posterior cerebral arteries appear otherwise unremarkable. Intracranial vertebral arteries are unremarkable. Basilar artery is unremarkable. IMPRESSION: No aneurysm or vascular malformation is identified. I personally viewed and interpreted these images and I have reviewed and approved this report. Normal [facility] LIPID PANEL, STANDARDon 05-0 Cholesterol [Mass/Vol] 162 mg/dL Normal <200 [facility] Comment on above: Performed By: #### 7 600 #### [facility] [address] [address] Mixer Blender: John Siddiqui MD Cholesterol in HDL [Mass/Vol] 41 mg/dL Normal > OR = 40 [facility] Comment on above: Performed By: #### 7 600 #### [facility] [address], [address] [place], [place] [id number] Mixer Blender: John Siddiqui MD Cholesterol in LDL [Mass/Vol] [...] LDL-C. Sean WILLIAM et al. MARIANA. 2013;310(19): 5754-8564 (http://education.[employer].Mobivery/faq/WKQ847) Performed By: #### 7 600 #### [facility] [address], [address] [place] [address] Mixer Blender: John Siddiqui MD Cholesterol.total/Chol esterol in HDL [Mass ratio] 4.0 {ratio} Normal <5.0 [facility] Comment on above: Performed By: #### 7 600 #### [facility] [address], [address] [place] [address] Mixer Blender: John Siddiqui MD NON HDL CHOLESTEROL 121 mg/dL (calc) Normal <130 [facility] Comment on above: Result Comment: For patients with diabetes plus 1 major ASCVD risk factor, treating to a non-HDL-C goal of <100 mg/dL (LDL-C of <70 mg/dL) is considered a therapeutic option. Performed By: #### 7 600 #### [facility] [address], [address] [place] [address] Mixer Blender: John Siddiqui MD Triglyceride [Mass/Vol] 131 mg/dL Normal <150 [facility] Comment on above: Performed By: #### 7 600 #### [facility] [place] [address] Mixer Blender: John Siddiqui MD ANKLE COMPLETE RTon 07-22-19 21 ANKLE COMPLETE RT [place] [address] Patient: SAL PADILLA Phone#: : 1970 Age: 50 Gender: M Pt. Type: Out Account: [id number] Location: Ordering: AYLA RODRIGUEZ Exam Date: 07/21/2020/10:28 Family Phys: Charge Code: [id number] Physician: Crenshaw Order #: [id number] DLP Dose#: PROCEDURE: X-RAY ANKLE COMPLETE RT MIN 3 VIEWS COMPARISON: [facility], XR, FOOT RT COMPLETE, 02/21/2016, 12:22. INDICATIONS: [...] MD on 07/21/2020 at 10:57 Approved by: Halmia Lopez MD on 07/21/2020 at 11:00 Normal [facility] LIPID PANEL, STANDARDon 12- Cholesterol [Mass/Vol] 183 mg/dL Normal <200 [facility] Comment on above: Performed By: #### 7 600 #### [facility]-[address], [address] [place], [place] [id number] Mixer Blender: John Siddiqui MD Cholesterol in HDL [Mass/Vol] 42 mg/dL Normal > OR = 40 [facility] Comment on above: Performed By: #### 7 600 #### [facility]-[address], [address] [place] [phone] Mixer Blender: John Siddiqui MD Cholesterol in LDL [Mass/Vol] [...] LDL-C. Sean WILLIAM et al. MARIANA. 2013;310(19): 9004-2995 (http://education.[employer]/faq/FWB221) Performed By: #### 7 600 #### [facility]-[address], [address] [place], [place] [phone] Mixer Blender: John Siddiqui MD Cholesterol.total/Chol esterol in HDL [Mass ratio] 4.4 {ratio} Normal <5.0 [facility] Comment on above: Performed By: #### 7 600 #### [facility] [address], [address] [place] [address] Mixer Blender: John Siddiqui MD NON HDL CHOLESTEROL 141 mg/dL (calc) High <130 [facility] Comment on above: Result Comment: For patients with diabetes plus 1 major ASCVD risk factor, treating to a non-HDL-C goal of <100 mg/dL (LDL-C of <70 mg/dL) is considered a therapeutic option. Performed By: #### 7 600 #### [facility] [address], [address] [place] [address] Mixer Blender: John Siddiqui MD Triglyceride [Mass/Vol] 180 mg/dL High <150 [facility] Comment on above: Performed By: #### 7 600 #### [facility]-[address], [address] Mixer Blender: John Siddiqui MD OPERATIVE PROCEDURESon 11-10 OPERATIVE PROCEDURES [facility] OPERATIVE REPORT NAME ACCOUNT SEX AGE ADMIT DISCHARGE PT MED. RECORD# NUMBER DATE DATE HARLEY PADILLA [id number] Bj 49 11/10/19 2 [place] [id number] [facility] DATE OF : 1970 DICTATING PHYSICIAN: Mariela Hoffman DATE OF SURGERY: November 10, 2019 SURGEON: Mariela Hoffman MD METAL STAMPER: ANESTHESIOLOGIST: Rene Cevallos MD ANESTHETIC: PREOPERATIVE DIAGNOSIS: [...] discrete mass. Prostate was smooth. The Olympus [id number] flexible endoscope was introduced through the anal [...] circumferential visualization, irrigation and suctioning in a [id number] movement as needed. The cecum and ascending [...] Mariela Hoffman MD 11/10/19 10:37 JOB #: [id number] Transcribed By: jesus manuel 11/10/19 11:17 Electronically signed by: E-Sign Dr. Mariela Hoffman MD 11/11/19 16:25 Page 2 of 2 SAL PADILLA Operative Report Normal [facility] Vital Signs Date Time Vital Sign Value Performing Clinician Jailene morejon 09-03-2024 17:36-0400 Body height 180.[address] Sal Arceo MD Work Phone: [facility] 09-03-2024 17:36-0400 Body mass index (BMI) [Ratio] 26.8 kg/m2 Dr. Sal Arceo MD Work Phone: [facility] 09-03-2024 17:36-0400 Body temperature 98.5 [degF] Dr. Sal Arceo MD Work Phone: 8(352)646-806576 [place] [address] 09-03-2024 17:36-0400 Body weight 87.[address] Sal Arceo MD Work Phone: 2(864)160-527276 [place] [address] 09-03-2024 17:36-0400 Diastolic blood pressure 62 mm[Hg] Dr. Sal Arceo MD Work Phone: 3(093)463-154676 [place] [address] 09-03-2024 17:36-0400 Heart rate 67 /min Dr. Sal Arceo MD Work Phone: 6(992)069-056376 [place] [address] 09-03-2024 17:36-0400 Respiratory rate 16 /min Dr. Sal Arceo MD Work Phone: 2(468)341-667876 [place] [address] 09-03-2024 17:36-0400 SaO2% (BldA) [Mass fraction] 98 % Dr. Sal Arceo MD Work Phone: 8(864)464-603776 [place] [address] 09-03-2024 17:36-0400 Systolic blood pressure 122 mm[Hg] Dr. Sal Arceo MD Work Phone: 9(383)312-632276 [place] [address] 08-21-2024 10:09-0400 Body weight 87.[address] Sal Arceo MD Work Phone: 4(215)214-479076 [place] [address] 07-17-2024 10:30-0400 Body weight 87.[address] Sal Arceo MD Work Phone: 0(543)961-931276 [place] [address] 06-09-2024 11:30-0500 Body height 180.[address] Sal Arceo MD Work Phone: 5(732)004-978776 [place] [address] 06-09-2024 11:30-0500 Body weight 86.[address] Sal Arceo MD Work Phone: 7(078)921-490076 [place] [address] 05-15-2024 11:30-0500 Body weight 86.[address] Sal Arceo MD Work Phone: 1(657)694-201176 [place] [address] 04-15-2024 11:00-0500 Body weight 85.[address] Sal Arceo MD Work Phone: [facility] 03-27-2024 11:00-0500 Body weight 85.[address] Sal Arceo MD Work Phone: [facility] 08-01-2023 11:01-0400 Body height 180.34 cm [facility] 08-01-2023 11:01-0400 Body weight 84.36 kg [facility] 05-31-2023 11:30-0500 Body weight 83.91 kg [facility] 05-10-2023 00:53-0500 Body weight 86.72 kg [facility] 04-19-2023 10:45-0500 Body height 180.34 cm [facility] 04-19-2023 10:45-0500 Body weight 86.72 kg [facility] 03-12-2023 11:30-0500 Body height 180.34 cm [facility] 03-12-2023 11:30-0500 Body weight 87.9 kg [facility] 02-22-2023 11:30-0500 Body weight 89.62 kg [facility] 02-07-2023 00:13-0400 Body weight 91.98 kg [facility] 02-01-2023 11:00-0400 Body height 180.34 cm [facility] 02-01-2023 11:00-0400 Body weight 91.98 kg [facility] 12-28-2022 11:00-0400 Body height 180.34 cm [facility] 12-28-2022 11:00-0400 Body weight 96.61 kg [facility] 11-23-2022 12:00-0400 Body weight 102.87 kg [facility] 10-23-2022 12:11-0400 Body weight 106.68 kg [facility] 09-25-2022 12:00-0400 Body weight 110.4 kg [facility] 09-02-2021 10:50-0400 Body height 180.3 cm Pac 2 [facility] 09-02-2021 10:50-0400 Body weight 109.77 kg Pac 2 [facility] 08-11-2021 09:33-0400 Body height 180.3 cm Milla Soto MD Work Phone: [facility] 08-11-2021 09:33-0400 Body weight 109.77 kg Milla Soto MD Work Phone: [facility] 07-28-2021 11:38-0400 Body height 180.3 cm Milla Soto MD Work Phone: [facility] 07-28-2021 11:38-0400 Body weight 108.86 kg Milla Soto MD Work Phone: [facility] Encounters Encounter Date Encounter Type Care Provider Facility Start: 10-29-2024 ambulatory Sal Dent lity:[facility] Start: 10-27-2024 ambulatory Sal Dent lity:[facility] Start: 10-09-2024 [facility] Start: 10-06-2024 End: 10-06-[address] Sal Arceo MD Work Phone: -[facility] Start: 10-06-2024 End: 10-06-[address] Sal Arceo MD -[facility] Work Phone: Start: 10-06-2024 End: 10-06-2024 ambulatory Sal Arceo Facility:[facility] Start: 10-02-2024 End: 10-02-[address] Sal Arceo MD Work Phone: -Laboratory [facility] Start: 10-02-2024 End: 10-02-[address] Sal Arceo MD -Laboratory [facility] Start: 10-02-2024 End: 10-02-2024 ambulatory Sal Arceo Facility:[facility] Start: 09-03-2024 End: 09-03-2024 Patient encounter procedure [facility] Work Phone: Start: 09-03-2024 End: 09-03-[address] Sal Arceo MD Work Phone: [facility] Work Phone: Start: 08-21-2024 End: 09-08-[address] Sal Arceo MD Work Phone: [facility] Work Phone: Start: 08-21-2024 End: 09-08-[address] Sal Arceo MD -[facility] Services Work Phone: Start: 07-17-2024 End: 08-06-[address] Sal Arceo MD -N[facility] Services Work Phone: Start: 07-17-2024 End: 08-06-2024 ambulatory Cameron Marielos Facility:[facility] Start: 06-09-2024 End: 07-07-[address] Sal Arceo MD -Nutritional Services Work Phone: Start: 06-09-2024 End: 07-07-[address] Sal Arceo MD Work Phone: [facility] Work Phone: Start: 05-15-2024 End: 06-06-[address] Sal Arceo MD -Nutritional Services Work Phone: Start: 05-15-2024 End: 06-06-2024 ambulatory Cameron Marielos Facility:[facility] Start: 04-15-2024 End: 05-09-[address] Sal Arceo MD -Nutritional Services Work Phone: Start: 04-15-2024 End: 05-09-2024 ambulatory [facility] Facility:[facility] Start: 03-27-2024 End: 04-08-[address] Sal Arceo MD -Nutritional Services Work Phone: Start: 03-27-2024 End: 04-08-2024 [facility] Start: 02-12-2024 End: 03-08-2024 ambulatory [facility] Facility:[facility] Start: 01-01-2024 End: 01-07-2024 ambulatory [facility] Facility:[facility] Start: 08-01-2023 End: 08-07-2023 ambulatory [facility] Work Phone: Start: 08-01-2023 End: 08-07-2023 Discharged Recurring [facility] Work Phone: Start: 05-31-2023 End: 06-07-2023 ambulatory [facility] Work Phone: Start: 05-31-2023 End: 06-07-2023 Discharged Recurring [facility] Work Phone: Start: 04-19-2023 End: 05-09-2023 ambulatory [facility] Work Phone: Start: 04-19-2023 End: 05-09-2023 Discharged Recurring [facility] Work Phone: Start: 03-12-2023 End: 04-08-2023 ambulatory [facility] Work Phone: Start: 03-12-2023 End: 04-08-2023 Discharged Recurring [facility] Work Phone: Start: 02-22-2023 End: 03-08-2023 ambulatory [facility] Work Phone: Start: 02-22-2023 End: 03-08-2023 Discharged Recurring [facility] Work Phone: Start: 02-01-2023 End: 02-06-2023 ambulatory [facility] Work Phone: Start: 02-01-2023 End: 02-06-2023 Discharged Recurring [facility] Work Phone: Start: 12-28-2022 End: 01-06-2023 ambulatory [facility] Work Phone: Start: 12-28-2022 End: 01-06-2023 Discharged Recurring [facility] Work Phone: Start: 11-23-2022 End: 12-07-2022 Discharged Recurring [facility] Work Phone: Start: 10-23-2022 End: 11-06-2022 Discharged Recurring [facility] Work Phone: Start: 09-25-2022 End: 10-06-2022 Discharged Recurring [facility] Work Phone: Start: 09-06-2022 End: 09-06-2022 ambulatory [facility] Work Phone: Start: 09-06-2022 End: 09-06-2022 Discharged Recurring [facility]-N[facility]rition[facility] Services Start: 08-02-2022 End: 08-02-2022 ambulatory [facility] Work Phone: Start: 08-02-2022 End: 08-02-2022 Patient encounter procedure [facility] Start: 07-31-2022 End: 07-31-2022 ambulatory [facility] Work Phone: Start: 07-31-2022 End: 07-31-2022 Discharged Recurring [facility]-Physical Therapy Start: 06-08-2022 End: 06-08-2022 ambulatory SAL ARCEO Facility:[facility] Start: 06-08-2022 End: 06-08-2022 Patient encounter procedure Milla Soto MD Work Phone: Orthopedics Comment on above: Acquired cavovarus d eformity of foot, right (Primary Dx) Start: 06-08-2022 End: 06-08-2022 Subsequent hospital visit by physician Thomas Giraldo Work Phone: Radiology Comment on above: Acquired cavovarus d eformity of foot, 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] Start: 03-06-2022 End: 03-06-2022 ambulatory SAL ARCEO Facility:[facility] Start: 03-06-2022 End: 03-06-2022 Patient encounter procedure Milla Soto MD Work Phone: Orthopedics Comment on above: Acquired cavovarus d eformity of foot, right (Primary Dx) Start: 03-06-2022 End: 03-06-2022 Subsequent hospital visit by physician Thomas Corona TELOS Work Phone: Radiology Comment on above: Right ankle pain, un specified chronicity [M25.571] Start: 01-24-2022 Refill Ofelia haynes PA-C Work Phone: Orthopaedics Comment on above: Refill Request Start: 01-05-2022 End: 01-05-2022 ambulatory MILLA SOTO Facility:[facility] Start: 01-05-2022 End: 01-05-2022 Patient encounter procedure Milla Soto MD Work Phone: Orthopedics Comment on above: Right ankle pain, un specified chronicity (Primary Dx) Start: 01-05-2022 End: 01-05-2022 Subsequent hospital visit by physician Thomas Corona TELOS Work Phone: Radiology Comment on above: Right ankle pain, un specified chronicity [M25.571] Start: 11-24-2021 End: 11-24-2021 ambulatory DONGEOVANNA ARCEO Facility:[facility] Start: 11-24-2021 End: 11-24-2021 Patient encounter procedure Milla Soto MD Work Phone: Orthopedics Comment on above: Acquired cavovarus d eformity of foot, right (Primary Dx) Start: 11-24-2021 End: 11-24-2021 Subsequent hospital visit by physician Thomas Corona TELOS Work Phone: Radiology Comment on above: Acquired cavovarus d eformity of foot, 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] Start: 11-23-2021 Orders Only Milla bryant MD Work Phone: Orthopedics Comment on above: Acquired cavovarus d eformity of foot, right (Primary Dx) Start: 10-27-2021 End: 10-27-2021 ambulatory SAL ARCEO Facility:[facility] Start: 10-27-2021 End: 10-27-2021 Patient encounter procedure Milla Soto MD Work Phone: Orthopedics Comment on above: Acquired cavovarus d eformity of foot, right (Primary Dx) Start: 10-27-2021 End: 10-27-2021 Subsequent hospital visit by physician Thomas Corona TELOS Work Phone: Radiology Comment on above: Acquired cavovarus d eformity of foot, 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] Start: 10-13-2021 End: 10-13-2021 ambulatory SAL ARCEO Facility:[facility] Start: 10-13-2021 End: 10-13-2021 Patient encounter procedure Milla Soto MD Work Phone: Orthopedics Comment on above: Acquired cavovarus d eformity of foot, right (Primary Dx) Start: 10-13-2021 End: 10-13-2021 Subsequent hospital visit by physician Thomas Corona TELOS Work Phone: Radiology Comment on above: Pain in joint involv ing right ankle and foot [M25.571] Start: 09-30-2021 Telephone encounter Milla baumann MD Work Phone: [facility] Comment on above: Patient Update (Call ing for patient update) Start: 09-27-2021 End: 09-27-2021 ambulatory SAL ARCEO Facility:[facility] Start: 09-27-2021 End: 09-27-2021 Patient encounter procedure Ofelia Clay PA-C Work Phone: Orthopaedics Comment on above: Acquired cavovarus d eformity of foot, right (Primary Dx); Postop check Start: 09-22-2021 End: 09-22-2021 ambulatory SAL ARCEO Facility:[facility] Start: 09-22-2021 Telephone encounter Siva bermudez PA-C Work Phone: Pain Management Comment on above: Recheck Start: 09-20-2021 End: 09-22-2021 ambulatory SAL ARCEO Facility:[facility] Start: 09-09-2021 End: 09-09-2021 [facility] Start: 09-09-2021 Telephone encounter Ofelia Burns Pre Anesthesia Comment on above: PreOp Call (labs ord ered ) Start: 09-02-2021 End: 09-02-2021 ambulatory SAL ARCEO Facility:[facility] Start: 09-02-2021 End: 09-02-[facility] Start: 09-02-2021 End: 09-02-2021 ambulatory [facility] 2 Pre Anesthesia Comment on above: Preoperative examina tion (Primary Dx); Acquired cavovarus deformity of foot, right; Hyperlipidemia, unspecified hyperlipidemia type; Cerebral aneurysm; BMI 34.0-34.9,adult Start: 09-02-2021 End: 09-02-2021 Preprocedural examination done Pacc 2 Pre Anesthesia Start: 08-25-2021 End: 08-25-2021 [facility] Start: 08-25-2021 End: 08-25-2021 Patient encounter procedure Milla Soto MD Work Phone: Orthopedics Comment on above: Acquired cavovarus d eformity of foot, right (Primary Dx) Start: 08-14-2021 End: 08-14-2021 ambulatory MILLA SOTO Facility:[facility] Start: 08-14-2021 End: 08-14-2021 Subsequent hospital visit by physician Mri 7 [employer] Main Q (I-Stat/1.5t/3t) Work Phone: MRI Q Comment on above: Peroneal tendinitis of right lower extremity [M76.71] Start: 08-11-2021 End: 08-11-2021 ambulatory MILLA SOTO Facility:[facility] Start: 08-11-2021 End: 08-11-2021 Patient encounter procedure Milla Soto MD Work Phone: Orthopedics Comment on above: Cavovarus deformity of foot (Primary Dx) Start: 08-04-2021 End: 08-04-2021 ambulatory MILLA SOTO Facility:[facility] Start: 08-02-2021 End: 08-02-2021 Patient encounter procedure [facility] Start: 08-01-2021 Encounter for other preprocedural examination MILLA SOTO [facility] Start: 07-30-2021 End: 08-01-2021 ambulatory SAL ARCEO Facility:[facility] Start: 07-28-2021 End: 07-28-2021 ambulatory AYLA RODRIGUEZ Facility:[facility] Start: 07-28-2021 End: 07-28-2021 Subsequent hospital visit [...] extremity Start: 07-11-2021 End: 07-11-2021 Discharged Recurring [facility]-Physical Therapy Start: 07-11-2021 Registered Recurring [facility] Start: 06-06-2021 ambulatory AYLA RODRIGUEZ Fackarli lity:[facility] Start: 06-02-2021 ambulatory MILLA Cartwright ty:[facility] Start: 05-24-2021 End: 05-24-2021 Patient encounter procedure [facility] Start: 07-21-2020 End: 07-21-2020 Patient encounter procedure AYLA RODRIGUEZ [facility] Start: 11-10-2019 End: 11-10-2019 Patient encounter procedure MARIELA HOFFMAN [facility] Start: 11-07-2019 Patient encounter procedure AYLA RODRIGUEZ [facility] Start: 09-18-2019 End: 09-18-2019 Patient encounter procedure [facility] Procedures Date Procedure Procedure Detail Performing Clinician Start: 10-06-2024 X-ray of knee, four or more views Dr. Sal Arceo MD Work Phone: Start: 10-06-2024 Complete x-ray serie s of lumbar spine with bending views Dr. Sal Arceo MD Work Phone: Start: 06-08-2022 Radex ankle complete minimum 3 [...] Author Start: 09-22-2024 DIABETES SCREEN DIABETES SCREEN [facility] Start: 09-22-2024 Diabetes Screening Diabetes Screenin g [facility] Start: 12-09-2023 Covid-19 Vaccine ( season) Covid-19 Vaccine () [facility] Start: 12-09-2023 Influenza vaccination Influenza Vacc ine (#1) [facility] Start: 06-29-2023 Prostate specific antigen measurement Prostate Cancer Screening Discussion [facility] Start: 04-09-2022 DEPRESSION ASSESSMENT DEPRESSION ASS ESSMENT [facility] Start: 12-08-2021 Influenza vaccination C [facility] Start: 08-25-2021 End: 10-25-2021 Basic metabolic 2000 panel - Serum or Plasma BASIC METABOLIC PNL Lab Routine Acquired cavovarus deformity of foot, right Expected: 08/25/2021, Expires: 10/25/2021 [facility] Work Phone: Comment on above: Expected: 08/25/2021 , Expires: 10/25/2021 Start: 08-25-2021 End: 10-25-2021 CBC W Auto Differential panel - Blood CBC + DIFF Lab Routine Acquired cavovarus deformity of foot, right Expected: 08/25/2021, Expires: 10/25/2021 [facility] Work Phone: Comment on above: Expected: 08/25/2021 , Expires: 10/25/2021 Start: 04-09-2021 DEPRESSION ASSESSMENT DEPRESSION ASS ESSMENT [facility] Start: 2018 SHINGRIX VACCINE (1 of 2) SHINGRIX VACCINE (1 of 2) [facility] Start: 2013 COLOGUARD (FIT-DNA) COLOGUARD (FIT-D NA) [facility] Start: 2013 Colonoscopy COLONOSCOPY [facility] Start: 2013 COLORECTAL CANCER SCREENING COLORECTAL CANCER SCREENING [facility] Start: [address] COLONOGRAPHY [facility] Start: 2013 DIABETES SCREEN DIABETES SCREEN [facility] Start: 2013 FECAL OCCULT BLOOD FECAL OCCULT BLOO D [facility] Start: 2013 Screening for malign ant neoplasm of colon [facility] Start: 2013 SIGMOIDOSCOPY SIGMO[facility]OSCOPY [facility] Start: 06-29-2003 Lipid panel Lipid Screening [facility] Start: 06-29-2003 LIPID SCREEN LIPID SCREEN [facility] Start: 06-29-1987 Hepatitis B Vaccine (1 of 3 - 19+ 3-dose series) Hepatitis B Vaccine (1 of 3 - 19+ 3-dose series) [facility] Start: 06-29-1987 Urine microalbumin profile [facility] Start: 1986 Anxiety Screening Anxiety Screening [facility] Start: 1986 Depression Screening Depression Scre ening [facility] Start: 1986 HEPATITIS C SCREENING HEPATITIS C SC SAULO [facility] Start: 1986 Hepatitis C screening Hepatitis C [facility] Start: 1986 HIV SCREENING HIV SCREENING [facility] Start: 1986 HIV screening HIV Screening [facility] Start: 1980 Adult depression screening assessment DEPRESSION SCREENING [facility] Start: 1973 COVID-19 VACCINE (#1) COVID-19 VACCI NE (#1) [facility] Start: 1973 COVID-19 VACCINE (1) COVID-19 VACCIN E (1) [facility] Start: 1968 COVID-19 VACCINE (#1) COVID-19 VACCI NE (#1) [facility] Start: 1968 HEPATITIS B (1 of 3 - 3-dose series) HEPATITIS B (1 of 3 - 3-dose series) [facility] End: 08-27-2022 Mri any jt lower extrem w/o contrast matrl MRI ANKLE WO IVCON RT Radiology Routine Peroneal tendinitis of right lower extremity 1 Occurrences starting 07/28/2021 until 08/27/2022 [facility] Work Phone: Comment on above: 1 Occurrences starti ng 07/28/2021 until 08/27/2022 End: 11-12-2022 XR ANKLE GENERAL 3V AP/LAT/OBL RIGHT XR ANKLE GENERAL 3V AP/LAT/OBL RIGHT Radiology Routine Acquired cavovarus deformity of foot, right 1 Occurrences starting 10/13/2021 until 11/12/2022 [facility] Work Phone: Comment on above: 1 Occurrences starti ng 10/13/2021 until 11/12/2022 End: 12-23-2022 XR ANKLE GENERAL 3V AP/LAT/OBL RIGHT XR ANKLE GENERAL 3V AP/LAT/OBL RIGHT Radiology Routine Acquired cavovarus deformity of foot, right 1 Occurrences starting 11/23/2021 until 12/23/2022 [facility] Work Phone: Comment on above: 1 Occurrences starti ng 11/23/2021 until 12/23/2022 End: 02-04-2023 XR ANKLE GENERAL 3V AP/LAT/OBL RIGHT XR ANKLE GENERAL 3V AP/LAT/OBL RIGHT Radiology Routine Right ankle pain, unspecified chronicity 1 Occurrences starting 01/05/2022 until 02/04/2023 [facility] Work Phone: Comment on above: 1 Occurrences starti ng 01/05/2022 until 02/04/2023 End: 04-05-2023 XR ANKLE GENERAL 3V AP/LAT/OBL RIGHT XR ANKLE GENERAL 3V AP/LAT/OBL RIGHT Radiology Routine Acquired cavovarus deformity of foot, right 1 Occurrences starting 03/06/2022 until 04/05/2023 [facility] Work Phone: Comment on above: 1 Occurrences starti ng 03/06/2022 until 04/05/2023 End: 08-27-2022 XR CALCANEUS 2V AXIAL/LAT RIGHT XR CALCANEUS 2V AXIAL/LAT RIGHT Radiology Routine Pain in joint involving right ankle and foot Peroneal tendinitis of right lower extremity 1 Occurrences starting 07/28/2021 until 08/27/2022 [facility] Work Phone: Comment on above: 1 Occurrences starti ng 07/28/2021 until 08/27/2022 End: 11-12-2022 XR FOOT GENERAL 3V AP/LAT/OBL RIGHT XR FOOT GENERAL 3V AP/LAT/OBL RIGHT Radiology Routine Acquired cavovarus deformity of foot, right 1 Occurrences starting 10/13/2021 until 11/12/2022 [facility] Work Phone: Comment on above: 1 Occurrences starti ng 10/13/2021 until 11/12/2022 End: 12-23-2022 XR FOOT GENERAL 3V AP/LAT/OBL RIGHT XR FOOT GENERAL 3V AP/LAT/OBL RIGHT Radiology Routine Acquired cavovarus deformity of foot, right 1 Occurrences starting 11/23/2021 until 12/23/2022 [facility] Work Phone: Comment on above: 1 Occurrences starti ng 11/23/2021 until 12/23/2022 [facility] Payers Date Payer Category Payer Self-pay [id number] 2018 Unknown [id number] 2018 Unknown MMO MMO [employer] [id number] 2018-Present [phone] [address] [place] [address] PPO [id number] 2018 Unknown [id number] [id number] 2006 Unknown [id number] 1970 Unknown [id number] 2.16.840.1.186005.3.579.2.651 1968 Unknown [id number] 2.16.840.1.140714.3.579.2.651 1968 Unknown [id number] 2.16.840.1.132437.3.579.2.651 1968 Unknown [id number] 2.16.840.1.464099.3.579.2.651 1968 Unknown [id number] 2.16.840.1.775462.3.579.2.594 1968 Unknown [id number] 2.16.840.1.845058.3.579.2.594 Unknown [id number] Unknown [id number] 2.16.840.1.324414.3.579.2.462 Unknown 1970 2.16.840.1.516759.3.579.2.462 Unknown [id number] 2.16.840.1.209220.3.579.2.462 Unknown [id number] 2.16.840.1.371766.3.579.2.462 Unknown [id number] 2.16.840.1.275213.3.579.2.462 Unknown [id number] 2.16.840.1.618055.3.579.2.462 Unknown [id number] 2.16.840.1.130652.3.579.2.462 Unknown [id number] 2.16.840.1.338149.3.579.2.462 Unknown [id number] 2.16.840.1.214228.3.579.2.462 Unknown [id number] 2.16.840.1.900931.3.579.2.462 Unknown [id number] 2.16840.1.530516.3.579.2.462 Unknown [id number] 2.16.840.1.926417.3.579.2.462 Unknown [id number] 2.16840.1.661564.3.579.2.462 Unknown [id number] 2.16840.1.016139.3.579.2.462 Social History Date Type Detail Facility Start: 12-03-2020 End: 07-28-2021 Tobacco smoking status UTIS Ex-smoker [facility] End: 04-09-2003 History of tobacco use Current smoker [facility] Start: 07-28-2021 End: 09-02-2021 Alcohol intake Current drinker of alcohol (finding) [facility] Start: 07-28-2021 End: 07-29-2021 Alcohol intake [facility] Start: 1970 Sex Assigned At Male [facility] Start: 07-18-2021 End: 09-27-2021 Exposure to SARS-CoV-2 (event) Not sure [facility] Start: 05-03-2019 End: 12-03-2020 Tobacco smoking status [facility] Unknown if ever smoked [facility] Start: 04-22-2022 History SDOH Alcohol Comment 1-2 x per month. [facility] End: 04-09-2003 History of tobacco use Cigarette Smoker [facility] Start: 07-28-2021 End: 11-24-2021 Tobacco use and exposure Smokeless tobacco non-user [facility] Start: 11-24-2021 Tobacco Comment chew [facility] Start: 07-29-2021 End: 06-08-2022 Tobacco use panel [facility] National Score (1-100), lower number is lower risk 54 [facility] Start: 07-27-2021 Gender identity Identifies as male gender (finding) [facility] Start: 07-08-2024 Sex Male (finding) [facility] Medical Equipment Procedure Code Equipment Code Equipment [...] joint Locking 2.4mm Screws FDA Start: 12-10-2020 Many Sut Dx bertab - [id number] Start: 09-20-2021 Many Sut Dx bertab - [id number] Start: 09-20-2021 Many Sut Dx Fi bertab - [id number] Start: 09-20-2021 Graft Bone Sub M 5cc Osteostrand - [id number] Start: 09-20-2021 Graft Bone 15ml 1-4mm Cancellous Osteoconductive Packable Rsorbabl Crushed - [id number] Start: 09-20-2021 Graft Bn Augment Inj 1.5cc - [id number] Start: 09-20-2021 Graft Bn Augment Inj 1.5cc - [id number] Start: 09-20-2021 Internalbrace Li gament Augmentation Repair Kit [id number] Start: 09-20-2021 Screw Acutrak 2 7.5mm Full Thread Titanium 90mm Bone Headless Compression - [id number] Start: 09-20-2021 Screw Acutrak 2 Full Thread Titanium 65mm Bone Headless Compression - [id number] Start: 09-20-2021 Screw 7.3mm Dari nium 85mm 16mm Bone Cannulated Nonsterile Long Bone - [id number] Start: 09-20-2021 Clinical Notes 03-23-2009 to 10-06-2024 Note Date & Type Note Facility 10-06-2024 Radiology Diagnostic study note [facility] Imaging Services [address] [place] [address] Knee 4 or More Views MR#: [id number] Acct: [id number] Name: SAL PADILLA Rep #: [id number] : 1970 M 54 From: Jaspreet Landon MD PCP: Dr. Sal Arceo MD Status: REG CLI Study:Knee 4 or More Views Date of Exam: 10/06/24 Exam# [id number] Ordering Dr: Wendy Arceo MD PROCEDURE: KNEE 4 OR MORE VIEWS 10/06/2024 REASON FOR EXAM: RIGHT KNEE PAIN TECHNIQUE: KNEE 4 OR MORE VIEWS COMPARISON: None FINDINGS: Bones: No fracture. No suspicious bone lesion. Joints: Mild tricompartmental arthrosis Effusion: No effusion. Soft tissues: Soft tissues are unremarkable. Other: RAD/Knee 4 or More Views IMPRESSION: Mild tricompartmental arthrosis no demonstrated fracture or suspicious osseous lesion Reading Location: [id number] CC: Dr. Sal Arceo MD ~ Department Clinician: Signed [facility] 10-06-2024 Radiology Diagnostic study note [facility] Imaging Services [address] [place], [place] [address] L/S Spine w Bend Min 6 Vw MR#: [id number] Acct: [id number] Name: SAL PADILLA Rep #: [id number] : 1970 M 54 From: Jaspreet Landon MD PCP: Dr. Sal Arceo MD Status: REG CLI Study:L/S Spine w Bend Min 6 Vw Date of Exam: 10/06/24 Exam# [id number] Ordering Dr: Wendy Arceo MD PROCEDURE: L/S SPINE W BEND MIN 6 VW 10/06/2024 REASON FOR EXAM: PAIN IN LB WITH RADIATION TO R KNEE TECHNIQUE: L/S SPINE W BEND MIN 6 VW 6 views total COMPARISON: None FINDINGS: There is anatomic alignment of the lumbar spine in the lateral view from L1-L5. There is a bilateral pars defect and grade 1 spondylolisthesis noted at L5/S1. Disc space narrowing noted throughout the lumbar spine most pronounced at L5/S1. Small anterior and posterior spurs noted throughout the lumbar spine. No instability noted on flexion or extension views however range of motion of the limited RAD/L/S Spine w Bend Min 6 Vw IMPRESSION: Bilateral pars defect with grade 1 spondylolisthesis at L5/S1 without instability Multilevel degenerative changes, no acute findings Reading Location: [id number] CC: Dr. Sal Arceo MD ~ Department Clinician: Signed [facility] 09-03-2024 Progress note [facility] 09-03-2024 Progress note Note Date/Time September 03, 2024 5:48pm [facility] [address], [address] [place] [address] OFFICE VISIT Date of Service: 09/03/24 MR#: [id number] Acct: [id number] Name: SAL PADILLA Rep #: [id number] : 1970 Provider: EMILY Stovall Age/Sex: 54/M Location: [facility] Status: Signed Intake Vital Signs 08/21/24 10:09 [...] Chief Complaint: drainage, cough, face pain, congestion Transplant Immunologist Required: No Is patient in pain?: Yes [...] (Updated 04/07/18 @ 13:57 by Milla DIAZ, PA) Smoking Status: Former smoker HPI HPI Chief [...] Cosigner Signature: Date (if applicable) CC: ~ [place] [address] Work Phone: 1(827) 925-317704-24-2023 Discharge summary Author Angelo Tucker [facility] July 31, 2022 12:09pm Note Date/Time July 31, 2022 12: 09pm [facility] Physical Therapy [address] [place] [address] / REHABILITATION SERVICES DISCHARGE SUMMARY MR#: [id number] Acct: [id number] Name: SAL PADILLA Rep #: [id number] : 1970 52 From: Angelo Tucker PT, ATC Referring : Status: REG RCR Insurance: [facility] [employer] It has been my pleasure [...] please feel free to call me at [phone]. Thank you for the referral of thispatient. Sincerely, Angelo Tucker, PT, ATC Balance/Gait/Functional tests - Balance/Special Test Scores Lower Extremity Functional Score: 37 <Electronically signed by Angelo Tucker PT, ATC> 07/31/22 1200 CC: Dr. Awais Arceo MD; MILLA SOTO ~ [facility] Signed [facility] Work Phone: 1(778) 816-594703-02-2023 NoteHNO ID: [id number] Author: Milla Soto MD Service: ? Author [...] visit: Yes PCP: Sal Arceo MD [address] [facility] [address] FELLOW / RESIDENT: No fellow or resident assisted in this office visit. Milla Soto, [facility]03-02-2023 History of Present illness Narrative* Milla Soto MD - 06/08/2022 12:30 PM EST June 08, 2022 HPI: Sal Cohn Nghia is following up for right ST fusion. [...] next visit: Yes PCP: Sal Arceo MD [address] [place] [id number] FELLOW / RESIDENT: No fellow or resident assisted in this office visit. Milla Soto MD documented in this encounterMount [facility] System03-02-2023 NoteHNO ID: [id number] Author: RT Nena(R) Service: ? Author Type: [...] BY: RT Nena(R) June 08, 2022 9:39 [facility]03-02-2023 History of Present illness Narrative* Abisai Cheek [...] 08, 2022 9:39 AM documented in this encounterMount Carmel Health System11-28-2022 NoteHNO ID: [id number] Author: Milla Soto MD Service: ? Author [...] next visit: Yes PCP: Sal Arceo MD [address] [place] [id number] FELLOW / RESIDENT: No fellow or resident assisted in this office visit. Milla Soto, [facility]11-28-2022 NoteHNO ID: [id number] Author: STEVIE Barrett) Service: ? Author Type: Technologist Type: Progress [...] PERIPHERAL IV DATA: Not applicable SIGNED BY: STEVIE Barrett) March 06, 2022 11:18 [facility]11-28-2022 History of Present illness Narrative* Milla Soto [...] next visit: Yes PCP: Sal Arceo MD [address] [place] [id number] FELLOW / RESIDENT: No fellow or resident assisted in this office visit. Milla Soto MD documented in this encounterMount Carmel Health System11-28-2022 History of Present illness Narrative* Abisai Cheek, [...] 06, 2022 11:18 AM documented in this encounterMount Carmel Health System09-29-2022 NoteHNO ID: [id number] Author: Milla Soto MD Service: ? Author [...] visit: Yes PCP: Sal Arceo MD [address] [facility] [address] FELLOW / RESIDENT: No fellow or resident assisted in this office visit. Milla Soto, [facility]09-29-2022 NoteHNO ID: [id number] Author: RT Nena(R) Service: ? Author Type: [...] BY: RT Nena(R) January 05, 2022 10:28 [facility]09-29-2022 History of Present illness Narrative* Milla Soto [...] next visit: Yes PCP: Sal Arceo MD [address] [place] [id number] FELLOW / RESIDENT: No fellow or resident assisted in this office visit. Milla Soto MD documented in this encounterMount Carmel Health System09-29-2022 History of Present illness Narrative* Abisai Cheek [...] 05, 2022 10:28 AM documented in this encounterMount Carmel Health System08-18-2022 NoteHNO ID: [id number] Author: Milla Soto MD Service: ? Author Type: Physician Type: Progress Notes Filed: 11/24/2021 6:05 PM Note Text: Incisions healed Superficial dry eschar lateral Alignment intact XR with healing Plan for boot, ROM, partial WB x 3 then WBAT x 3 FU 6 for PT Milla oSto [facility]08-18-2022 History of Present illness Narrative* Milla Soto MD - 11/24/2021 6:03 PM EDT Incisions healed Superficial dry eschar lateral Alignment intact XR with healing Plan for boot, ROM, partial WB x 3 then WBAT x 3 FU 6 for PT Milla Soto MD documented in this encounterMount Carmel Health System08-18-2022 NoteHNO ID: [id number] Author: RT Nena(Ranjith) Service: ? Author Type: Technologist Type: Progress [...] BY: RT Nena(R) November 24, 2021 2:16 [facility]08-18-2022 History of Present illness Narrative* Abisai Cheek [...] 24, 2021 2:16 PM documented in this encounterMount Carmel Health System08-18-2022 NoteHNO ID: [id number] Author: COLE Coker Service: ? Author Type: Clinical Diorama Model Maker Type: Progress Notes Filed: 11/25/2021 8:06 AM Note Text: PT ASSESSMENT - CASTING ROOM [place] presents for Application of boot. Applied high fracture walker and nightsplint to Right ankle Patient has been instructed in Care of boot.. COLE Coker Beeper:[facility]08-17-2022 NoteHNO ID: [id number] Author: Julio Kumari PA-C Service: ? Author Type: Physician Cell Inspector Type: Progress Notes Filed: 11/23/2021 3:54 PM Note Text: [facility] History of Present illness Narrative* Julio Kumari PA-C - 11/23/2021 3:54 PM EDT Images from the original note were not included. DEPARTMENT OF ORTHOPAEDICS documented in this encounterMount Carmel Health System07-21-2022 NoteHNO ID: [id number] Author: Milla Soto MD Service: ? Author Type: Physician Type: Progress Notes Filed: 10/27/2021 1:37 PM Note Text: Incisions CDI Improved swelling Good alignment XR with good healing SLNWBC fu 3 weeks with Qing Alvarez for SLNWBC Then fu with me 3 weeks later for XR Milla Soto [facility]07-21-2022 NoteHNO ID: [id number] Author: COLE Coker Service: ? Author Type: Clinical Diorama Model Maker Type: Progress Notes Filed: 10/27/2021 12:05 PM Note Text: [facility] ASSESS[facility]. Applied short cast: to Right leg Patient has been instructed in Care of cast.. COLE Coker Beeper:[facility]07-21-2022 History of Present illness Narrative * [...] cast.. COLE Coker Beeper: documented in this encounterMount Carmel Health System07-21-2022 NoteHNO ID: [id number] Author: RT Nena(Ranjith) Service: ? Author Type: Technologist Type: Progress [...] IV DATA: Not applicable SIGNED BY: RT Nena(Ranjith) October 27, 2021 11:39 [facility]07-21-2022 History of Present illness Narrative* Abisai Cheek RT(Ranjith) - 10/27/2021 11:00 AM EDT Radiology Service [...] 27, 2021 11:39 AM documented in this encounterMount Carmel Health System07-07-2022 NoteHNO ID: [id number] Author: Milla Soto MD Service: ? Author Type: Physician Type: Progress Notes Filed: 10/13/2021 11:47 AM Note Text: Incision CDI Mild swelling Sutures removed SLNWBC FU 2 weeks with XR Milla Soto [facility]07-07-2022 History of Present illness Narrative* Milla Soto MD - 10/13/2021 11:47 AM EDT Incision CDI Mild swelling Sutures removed SLNWBC FU 2 weeks with XR Milla Soto MD documented in this encounterMount Carmel Health System06-24-2022 Miscellaneous Notes* Telephone Encounter - Jeromy Bell - 09/30/2021 2:26 PM EDT Called patient per Lois Clay for an update on post-op rash. Left a nonspecific voicemail asking patient to return my call for an update and provided office phone number. documented in this encounterMount Carmel Health System06-23-2022 Miscellaneous Notes* Telephone Encounter - Maggi Philippe RN - 09/29/2021 11:14 AM EDT DOS: 09/20/2021 Type of Surgery: R subtalar arthrodesis and ankle ligament repair Surgeon : Charles Catheter site: Popliteal PNC Solution: Ropivacaine 0.2% Rates: Phone number: [phone] (pt), (Qing - mom) Discharge date: 09/22/202109/29 [...] PNC Solution: Ropivacaine 0.2% Rates: Phone number: [phone] (pt), (Qing - mom) Discharge date: 09/22/2021 1000- call placed to pt at this time with no answer. * Telephone Encounter - Maggi Philippe RN - 09/27/2021 2:15 PM EDT DOS: 09/20/2021 Type of Surgery: R subtalar arthrodesis and ankle ligament repair Surgeon : Charles Catheter site: Popliteal PNC Solution: Ropivacaine 0.2% Rates: Phone number: [phone] (pt), (Qing - mom) Discharge date: 09/22/202109/27 [...] Solution: Ropivacaine 0.2% Rates: 11/18/09/07 Phone number: [phone] (pt), (Qing - mom) Discharge date: 09/22/2021 Switched to Ambit pump, educated on its use, discussed LA/SE and s/s that should be reported, patient/famiyl verbalized understanding. Will follow up with phone call. documented in this encounterMount Carmel Health System06-21-2022 NoteHNO ID: [id number] Author: Ofelia Clay PA-C Service: ? Author Type: Physician Cell Inspector Type: Progress Notes Filed: 09/27/2021 5:32 PM Note Text: Milla Soto [address] [facility] [address] Specialty Problems Ortho Problems Right ankle pain [...] which included preparing to see the patient, [id number] patient care, completing clinical documentation, obtaining and/or [...] IMAGING: No imaging was performed today. EMILY Burgos-[facility]06-21-2022 History of Present illness Narrative* EMILY Burgos-C - 09/27/2021 5:26 PM EDT Milla Soto [address] [facility] [address] Specialty Problems Ortho Problems Right ankle pain Acquired cavovarus deformity of foot, right Foot pain CC: Established Patient, Follow Up, and Post Op of the Right Ankle Injury/Surgery Date: 09/20/2021 Procedure: 1. Right subtalar arthrodesis. 2. Right iliac crest bone graft small. 3. Right achilles tendon lengthening. 4. Right ankle lateral ligament reconstruction. Sal [...] which included preparing to see the patient, jyyr-wb-esuk patient care, completing clinical documentation, obtaining and/or [...] today. Ofelia Clay PA-C documented in this encounterMount Carmel Health System06-21-2022 NoteHNO ID: [id number] Author: COLE Coker Service: ? Author Type: Clinical Diorama Model Maker Type: Progress Notes Filed: 10/05/2021 11:18 AM Note Text: PT ASSESSMENT - CASTING ROOM Sal presents for Application of cast. Applied short cast: to Right foot Patient has been instructed in Care of cast.. COLE Coker Beeper: [id number] Clinic [facility]06-16-2022 NoteHNO ID: [id number] Author: Guillaume Perez PA-C Service: Orthopaedic Surgery Author Type: Physician Cell Inspector Type: Plan of Care Filed: 09/22/2021 10:37 [...] in this patient's care. Guillaume Perez PA-C [phone] Clinic Hillcrest Hospital06-16-2022 NoteHNO ID: [id number] Author: Yun Cross MD Service: Orthopaedic Surgery [...] Yun Cross MD Orthopaedic Surgery PGY-3 Pager: [phone] (Page 2BONE after 5pm and on weekends)[facility]06-15-2022 NoteHNO ID: [id number] Author: Guillaume Perez PA-C Service: Orthopaedic Surgery Author Type: Physician Cell Inspector Type: Plan of Care Filed: 09/21/2021 3:51 [...] in this patient's care. Guillaume Perez PA-C [phone] Clinic Hillcre[facility]06-15-2022 NoteHNO ID: [id number] Author: Yun Cross MD Service: Orthopaedic Surgery [...] Yun Cross MD Orthopaedic Surgery PGY-3 Pager: [phone] (Page 2BONE after 5pm and on weekends)[facility]06-14-2022 NoteHNO ID: [id number] Author: Lakisha Mccoy CRNA Service: ? Author Type: Nurse Flavorer Type: Anesthesia Procedure Notes Filed: 09/20/2021 8:02 AM Note Text: ANESTHESIOLOGY PROCEDURE NOTE Airway General Information Procedure Start Time/Medication Administration: 09/20/2021 7:40 AM Patient location during procedure: OR Timeout Performed Pre-procedure: timeout performed Consent Obtained: Yes Patient identity confirmed: arm band and patient Staffing LICENSE ISSUER: Lakisha Mccoy CRNA Performed by: LICENSE ISSUER Indications and Patient Condition Preoxygenated: yes Patient [...] September 20, 2021 TIME: 8:01 AM CSN: [id number] Clinic [facility]cre[facility]06-14-2022 NoteHNO ID: [id number] Author: Jorgito Galaviz DO Service: ? Author [...] Staffing Anesthesiologist: Ayla Marquez MD Resident: Jorgito Gaalviz DO Performed by: resident and anesthesiologist Preparation [...] September 20, 2021 TIME: 7:57 AM CSN: [id number] Clinic Hillcrest Hospital06-14-2022 NoteHNO ID: [id number] Author: Ayla Marquez MD Service: ? Author [...] September 20, 2021 TIME: 7:55 AM CSN: [id number] Popliteal catheter was performed with a posterior approach . Pt seen and case discussed with resident confirmed hale portions of the exam. agreed with above plan as mentioned in resident note. Popl. catheter was performed with out complications Will continue to follow Ayla Marquez [facility]06-03-2022 Miscellaneous Notes* Telephone Encounter - Ofelia Colunga RN - 09/09/2021 11:13 AM EDT Spoke directly with patient regarding ordered labs needed for surgery. He stated he was going todayto [facility] to have drawn. documented in this encounterMount Carmel Health System05-27-2022 Instructions* Patient Instructions* Nini Borja PA-C - 09/02/2021 11:15 AM EDT PATIENT PREOPERATIVE INSTRUCTIONS Milla Soto MD has scheduled you for your procedure at this surgery center: [facility] Scheduling Office: [phone] --[address] [place] [address]. Please read below carefully for your personalized [...] Procedures: - YOU MUST HAVE A RESPONSIBLE AERIAL HURRICANE HUNTER TAKE YOU HOME. A BINDERY TECHNICIAN OR HEALTH TECHNICIAN CANNOT BE MADE A RESPONSIBLE AERIAL HURRICANE HUNTER. - We recommend that a responsible person [...] call the Sunday before. Your surgeon s bulk mail technician will tell you what time to call the office. - If you have not reached the departmental bulk mail technician by 5 P.M., call [phone] after 5 P.M. the day before your surgery. Please be aware that emergency situations arise, which may delay or change your surgical time. If this happens, we will notify you as soon as possible and regret any inconvenience. If you already have an Advance Directive, please fax a copy to [phone] or email to for it to be [...] day. Nini Borja PA-C documented in this encounterMount Carmel Health System05-27-2022 History and physical note * Nini Borja PA-C - 09/02/2021 10:39 AM EDT PREANESTHESIA CONSULT CLINIC TELEHEALTH VISIT Patient has been identified by name and date of : Yes This is a virtual visit using Sharewave video visit. It require patient-provider interaction for [...] fevers. Neuro: No history of TIA's, stroke, CREATIVE RECRUITER tumor, impaired sensorium, hemiplegia, paraplegia or quadraplegia. [...] by surgeon- patient will complete @ [facility] [place] prior to surgery. Planned Anesthetic: General Instructions Given to Patient: Patient given verbal instructions and voices comprehension and compliance. Copy sent electronically via My Chart, email, or mobile device. I spent more than 21-40 minutes [id number] with the patient and over half the time was devoted tocounseling and/or coordination of care. This is a virtual visit. It required patient-provider interaction for the medical decision making as documented above. SIGNATURE: Nini Borja PA-C PATIENT NAME: Sal Padilla DATE: September 02, 2021 TIME: 12:05 PM PAGER/CONTACT #: documented in this encounter[facility]22 NoteHNO ID: [id number] Author: Milla Soto MD Service: ? Author [...] like to proceed with surgery. Milla Soto [facility]05-19-2022 History of Present illness Narrative* Milla Soto [...] surgery. Milla Soto MD documented in this encounterMount [facility]-08-2022 NoteHNO ID: [id number] Author: Shirlene Braun Service: ? Author Type: Diorama Model Maker Type: Progress Notes Filed: 08/14/2021 7:09 AM [...] BY: Shirlene Braun August 14, 2021 7:09 [facility]05-08-2022 History of Present illness Narrative* Shirlene Braun [...] 14, 2021 7:09 AM documented in this encounterMount [facility]-07-2022 NoteHNO ID: [id number] Author: Milla Soto MD Service: ? Author Type: Physician Type: Progress Notes Filed: 08/13/2021 2:26 PM Note Text: Incision CDI Dry dressing changes Partial WB Vit D Fu 2 weeks for sutures, MR review, pick surgery date Milla Soto, [facility]05-07-2022 History of Present illness Narrative* Milla Soto MD - 08/13/2021 2:25 PM EDT Incision CDI Dry dressing changes Partial WB Vit D Fu 2 weeks for sutures, manjit Bingham surgery date Milla Soto MD documented in this encounterMount [facility]04-28-2022 NoteHNO ID: [id number] Author: Nina Degroot RN Service: ? Author Type: Registered Nurse Type: Nursing Progress Note Filed: 08/04/2021 9:02 AM Note Text: Oral airway removed, patient waking up more.[facility]04-28-2022 NoteHNO ID: [id number] Author: CHUCKY Woodward Service: ? Author Type: Staff Writer Type: Anesthesia Procedure Notes Filed: 08/04/2021 8:09 [...] August 04, 2021 TIME: 8:08 AM CSN: [id number] Miscellaneous Notes* Addendum Note - Milla Soto MD - 07/28/2021 2:37 PM EDT Addended by: MILLA SOTO on: 07/28/2021 02:37 PM Modules accepted: Orders documented in this encounterMount [facility]04-21-2022 NoteHNO ID: [id number] Author: Milla Soto MD Service: ? Author Type: Physician Type: Progress Notes Filed: 07/28/2021 2:37 PM Note Text: July 28, 2021 HPI: Sal Padilla is a 51 yo male who had foot surgery on right in [place] in December 2020. Reports a broken ankle [...] and alignment views PCP: Ayla Rodriguez MD [address] [place] [address] [place] [phone] FELLOW / RESIDENT: No fellow or resident assisted in this office visit. M (more content not included)...[facility]04-21-2022 NoteHNO ID: [id number] Author: RT Uzma(R) Service: ? Author Type: [...] BY: RT Uzma(R) July 28, 2021 11:58 [facility]04-21-2022 History of Present illness Narrative* Milla Soto MD - 07/28/2021 11:59 AM EDT July 28, 2021 HPI: Sal Padilla is a 51 yo male who had foot surgery on right in [place] in December 2020.Reports a broken ankle in [...] and alignment views PCP: Ayla Rodriguez MD [address] [place] [address] [place] [phone] FELLOW / RESIDENT: No fellow or resident assisted in this office visit. Milla Soto MD documented in this encounterMount [facility]04-21-2022 History of Present illness Narrative* Barney Mace [...] 28, 2021 11:58 AM documented in this encounterMount [facility]el [facility] System12-15-2009 History of Past illness Narrative* Problem Noted Date Resolved Date Abdominal pain, epigastric 03/23/200907/29 documented as of this encounter (statuses as of 08/13/2021) [address]15-2009 History of Past illness Narrative* Problem Noted Date Resolved Date Abdominal pain, epigastric 03/23/200907/29 documented as of this encounter (statuses as of 08/15/2021) [address]15[address]2009 History of Past illness Narrative* Problem Noted Date Resolved Date Abdominal pain, epigastric 03/23/200907/29 documented as of this encounter (statuses as of 08/25/2021) [address]15[address]2009 History of Past illness Narrative* Problem Noted Date Resolved Date Abdominal pain, epigastric 03/23/200907/29 documented as of this encounter (statuses as of 09/02/2021) [address]15[address]2009 History of Past illness Narrative* Problem Noted Date Resolved Date Abdominal pain, epigastric 03/23/200907/29 documented as of this encounter (statuses as of 09/09/2021) [address]15[address]2009 History of Past illness Narrative* Problem Noted Date Resolved Date Abdominal pain, epigastric 03/23/200907/29 documented as of this encounter (statuses as of 09/27/2021) [address]15[address]2009 History of Past illness Narrative* Problem Noted Date Resolved Date Abdominal pain, epigastric 03/23/200907/29 documented as of this encounter (statuses as of 09/29/2021) [address]15[address]2009 History of Past illness Narrative* Problem Noted Date Resolved Date Abdominal pain, epigastric 03/23/200907/29 documented as of this encounter (statuses as of 09/30/2021) [address]2009 History of Past illness Narrative* Problem Noted Date Resolved Date Abdominal pain, epigastric 03/23/200907/29 documented as of this encounter (statuses as of 10/13/2021) [address]15[address]2009 History of Past illness Narrative* Problem Noted Date Resolved Date Abdominal pain, epigastric 03/23/200907/29 documented as of this encounter (statuses as of 10/27/2021) [address]2009 History of Past illness Narrative* Problem Noted Date Resolved Date Abdominal pain, epigastric 03/23/200907/29 documented as of this encounter (statuses as of 11/23/2021) [address]2009 History of Past illness Narrative* Problem Noted Date Resolved Date Abdominal pain, epigastric 03/23/200907/29 documented as of this encounter (statuses as of 11/24/2021) [address]2009 History of Past illness Narrative* Problem Noted Date Resolved Date Abdominal pain, epigastric 03/23/200907/29 documented as of this encounter (statuses as of 01/05/2022) [address]2009 History of Past illness Narrative* Problem Noted Date Resolved Date Abdominal pain, epigastric 03/23/200907/29 documented as of this encounter (statuses as of 01/24/2022) [address]2009 History of Past illness Narrative* Problem Noted Date Resolved Date Abdominal pain, epigastric 03/23/200907/29 documented as of this encounter (statuses as of 03/06/2022) [address]2009 History of Past illness Narrative* Problem Noted Date Resolved Date Abdominal pain, epigastric 03/23/200907/29 documented as of this encounter (statuses as of 06/08/2022) [facility]* Diagnosis Pain in joint involving right ankle and foot- Primary Peroneal tendinitis of right lower extremity Other enthesopathy of ankle and tarsus Pain in joint involving right ankle and foot Peroneal tendinitis of right lower extremity Other enthesopathy of ankle and tarsus documented [facility] noteNo assessment information availableWMiami Valley Hospital Work Phone: Evaluation note* Diagnosis Cavovarus deformity of foot- Primary Cavovarus deformity of foot, acquired [facility] Diagnosis Peroneal tendinitis of right lower extremity Other enthesopathy of ankle and tarsus [facility] Diagnosis Acquired cavovarus deformity of foot, right- Primary [facility]* Diagnosis Preoperative examination- Primary Preoperative examination, unspecified Acquired cavovarus deformity of foot, right Hyperlipidemia, unspecified hyperlipidemia type Cerebral aneurysm Cerebral aneurysm, nonruptured BMI 34.0-34.9,adult Body Mass Index 34.0-34.9, adult Acquired cavovarus deformity of foot, right documented in this encounter [facility]* Diagnosis Acquired cavovarus deformity of foot, right- Primary Postop check Follow-up examination, following unspecified surgery [facility]* Diagnosis Acquired cavovarus deformity of foot, right- Primary documented [facility] this [facility]* Diagnosis Acquired cavovarus deformity of foot, right- Primary documented in this encounter [facility] note* Diagnosis Acquired cavovarus deformity of foot, right- Primary [facility] this [facility]* Diagnosis Acquired cavovarus deformity of foot, right- Primary documented in this encounter [facility] note* Diagnosis Right ankle pain, unspecified chronicity- Primary documented in this encounter [facility] note* Diagnosis Acquired cavovarus deformity of foot, right- Primary documented in this encounter [facility]* Diagnosis Acquired cavovarus deformity of foot, right- Primary documented in this encounter [facility] note* Diagnosis Pre-op evaluation- Primary Preoperative examination, [...] of foot, right [facility]* Diagnosis Pre-op evaluation- Primary Preoperative examination, [...] pain, unspecified chronicity documented in this encounter [facility] note* Diagnosis Pre-op evaluation- Primary Preoperative examination, [...] pain, unspecified chronicity documented [facility] this encounter [facility]* Diagnosis Pre-op evaluation- Primary Preoperative examination, [...] of foot, right documented in this encounter [facility] note* Diagnosis Pre-op evaluation- Primary Preoperative examination, [...] ankle and tarsus documented in this encounter [facility] note* Diagnosis Pre-op evaluation- Primary Preoperative examination, [...] of foot, right [facility]* Diagnosis Pain in joint involving right ankle and foot Preoperative examination- Primary Preoperative examination, unspecified Acquired cavovarus deformity of foot, right Hyperlipidemia, unspecified hyperlipidemia type Cerebral aneurysm Cerebral aneurysm, nonruptured BMI 34.0-34.9,adult Body Mass Index 34.0-34.9, adult documented in this encounter [facility] (n[facility]ative)* Diagnostic Procedure Only (Routine) - Pending Review Specialty Diagnoses / Procedures Referred By Contac t Referred To Contact XR IMAGING Diagnoses Pain in joint involving right ankle and foot Peroneal tendinitis of right lower extremity Procedures XR CALCANEUS 2V AXIAL/LAT RIGHT RADEX CALCANEUS MINIMUM 2 VIEWS Milla Soto MD [address] [place] [address] Xr Imaging Referral ID Status Reason Start Date Expiration Date Visits Requested Visits Authorized [id number] Pending Review Auto-Generat ed Referral 07/28/2021 08/27/2022 1 1 * MRI/CT (Routine) - Additional Clinical Info Needed Specialty Diagnoses / Procedures Referred By Contac t Referred To Contact MR IMAGING Diagnoses Peroneal tendinitis of right lower extremity Procedures MRI ANKLE WO IVCON RT MRI ANY JT LOWER EXTREM W/O CONTRAST MATRL Milla Soto MD [address] [place] [address] Mr Imaging Referral ID Status Reason Start Date Expiration Date Visits Requested Visits Authorized [id number] Additional Clinical Info Needed Auto-Generat ed Referral 07/28/2021 08/27/2022 1 1 * Diagnostic Procedure Only (Routine) - Closed Specialty Diagnoses / Procedures Referred By Contac t Referred To Contact XR IMAGING Diagnoses Pain in joint involving right ankle and foot Procedures XR FOOT GENERAL 3V AP/LAT/OBL RIGHT RADEX FOOT COMPLETE MINIMUM 3 VIEWS Milal Soto MD [address] [place] [address] Xr Imaging Referral ID Status Reason Start Date Expiration Date V isits Requested Visits Authorized [id number] Closed Auto-Generate d Referral 07/28/2021 08/27/2022 1 1 * Diagnostic Procedure Only (Routine) - Closed Specialty Diagnoses / Procedures Referred By Contac t Referred To Contact XR IMAGING Diagnoses Pain in joint involving right ankle and foot Procedures XR ANKLE GENERAL 3V AP/LAT/OBL RIGHT RADEX ANKLE COMPLETE MINIMUM 3 VIEWS Milla Soto MD [address] [place] [id number] Xr Imaging Referral ID Status Reason Start Date Expiration Date V isits Requested Visits Authorized [id number] Closed Auto-Generate d Referral 07/28/2021 08/27/2022 1 1 [facility] (narrative)* Diagnostic Procedure Only (Routine) - Authorized Specialty Diagnoses / Procedures Referred By Contac t Referred To Contact XR IMAGING Diagnoses Acquired cavovarus deformity of foot, right Procedures XR ANKLE GENERAL 3V AP/LAT/OBL RIGHT RADEX ANKLE COMPLETE MINIMUM 3 VIEWS Milla Soto MD [address] [place] [address] Xr Imaging Referral ID Status Reason Start Date Expiration Date Visits Requested Visits Authorized [id number] Authorized Auto-Generat ed Referral 10/13/2021 11/12/2022 1 1 * Diagnostic Procedure Only (Routine) - Authorized Specialty Diagnoses / Procedures Referred By Contac t Referred To Contact XR IMAGING Diagnoses Acquired cavovarus deformity of foot, right Procedures XR FOOT GENERAL 3V AP/LAT/OBL RIGHT RADEX FOOT COMPLETE MINIMUM 3 VIEWS Milla Soto MD [address] [place] [id number] Xr Imaging Referral ID Status Reason Start Date Expiration Date Visits Requested Visits Authorized [id number] Authorized Auto-Generat ed Referral 10/13/2021 11/12/2022 1 1 [facility] for [facility] (narrative)* Diagnostic Procedure Only (Routine) - Pending Review Specialty Diagnoses / Procedures Referred By Contac t Referred To Contact XR IMAGING Diagnoses Acquired cavovarus deformity of foot, right Procedures XR ANKLE GENERAL 3V AP/LAT/OBL RIGHT RADEX ANKLE COMPLETE MINIMUM 3 VIEWS Julio Kumari PA-C [address] [place] [address] Xr Imaging Referral ID Status Reason Start Date Expiration Date Visits Requested Visits Authorized [id number] Pending Review Auto-Generat ed Referral 11/23/2021 12/23/2022 1 1 * Diagnostic Procedure Only (Routine) - Pending Review Specialty Diagnoses / Procedures Referred By Contac t Referred To Contact XR IMAGING Diagnoses Acquired cavovarus deformity of foot, right Procedures XR FOOT GENERAL 3V AP/LAT/OBL RIGHT RADEX FOOT COMPLETE MINIMUM 3 VIEWS Julio Kumari PA-C [address] [place] [address] Xr Imaging Referral ID Status Reason Start Date Expiration Date Visits Requested Visits Authorized [id number] Pending Review Auto-Generat ed Referral 11/23/2021 12/23/2022 1 1 [facility] for [facility] (narrative)* Diagnostic Procedure Only (Routine) - Authorized Specialty Diagnoses / Procedures Referred By Contac t Referred To Contact XR IMAGING Diagnoses Right ankle pain, unspecified chronicity Procedures XR ANKLE GENERAL 3V AP/LAT/OBL RIGHT RADEX ANKLE COMPLETE MINIMUM 3 VIEWS Milla Soto MD [address] [place] [address] Xr Imaging Referral ID Status Reason Start Date Expiration Date Visits Requested Visits Authorized [id number] Authorized Auto-Generat ed Referral 01/05/2022 02/04/2023 1 1 * - Pending Review Specialty Diagnoses / Procedures Referred By Contac t Referred To Contact Physical Therapy Diagnoses Right ankle pain, unspecified chronicity Procedures CONSULT TO PHYSICAL THERAPY Milla Soto MD [address] [place] [address] Referral ID Status Reason Start Date Expiration Date V isits Requested Visits Authorized [id number] Pending Review 01/05/2022 04/05/2022 1 1 * Diagnostic Procedure Only (Routine) - Closed Specialty Diagnoses / Procedures Referred By Contac t Referred To Contact XR IMAGING Diagnoses Right ankle pain, unspecified chronicity Procedures XR FOOT GENERAL 3V AP/LAT/OBL RIGHT RADEX FOOT COMPLETE MINIMUM 3 VIEWS Ofelia Clay PA-C [address] [place] [address] Xr Imaging Referral ID Status Reason Start Date Expiration Date V isits Requested Visits Authorized [id number] Closed Auto-Generate d Referral 01/05/2022 02/04/2023 1 1 [facility] for [facility] (narrative)* Diagnostic Procedure Only (Routine) - Pending Review Specialty Diagnoses / Procedures Referred By Contac t Referred To Contact XR IMAGING Diagnoses Acquired cavovarus deformity of foot, right Procedures XR ANKLE GENERAL 3V AP/LAT/OBL RIGHT RADEX ANKLE COMPLETE MINIMUM 3 VIEWS Milla Soto MD [address] [place] [address] Xr Imaging Referral ID Status Reason Start Date Expiration Date Visits Requested Visits Authorized [id number] Pending Review Auto-Generat ed Referral 2 04/05/2023 1 1 * - Pending Review Specialty Diagnoses / Procedures Referred By Contac t Referred To Contact Physical Therapy Diagnoses Acquired cavovarus deformity of foot, right Procedures CONSULT TO PHYSICAL THERAPY Milla Soto MD [address] [facility] [place] [address] Referral ID Status Reason Start Date Expiration Date V isits Requested Visits Authorized [id number] Pending Review 03/06/2022 06/04/2022 1 1 * Diagnostic Procedure Only (Routine) - Pending Review Specialty Diagnoses / Procedures Referred By Contac t Referred To Contact XR IMAGING Diagnoses Acquired cavovarus deformity of foot, right Procedures XR ANKLE GENERAL 3V AP/LAT/OBL RIGHT RADEX ANKLE COMPLETE MINIMUM 3 VIEWS Milla Soto MD [address] [place] [address] Xr Imaging Referral ID Status Reason Start Date Expiration Date Visits Requested Visits Authorized [id number] Pending Review Auto-Generat ed Referral 2 04/05/2023 1 1 [facility] (narrative)* - Pending Review Specialty Diagnoses / Procedures Referred By Contac t Referred To Contact Physical Therapy Diagnoses Acquired cavovarus deformity of foot, right Procedures CONSULT TO PHYSICAL THERAPY Milla Soto MD [address] [facility] [place] [address] Referral ID Status Reason Start Date Expiration Date V isits Requested Visits Authorized [id number] Pending Review 06/08/2022 09/06/[address] [facility] for referral (narrative)* Diagnostic Procedure Only (Routine) - Closed Specialty Diagnoses / Procedures Referred By Contac t Referred To Contact XR IMAGING Diagnoses Acquired cavovarus deformity of foot, right Procedures XR ANKLE GENERAL 3V AP/LAT/OBL RIGHT RADEX ANKLE COMPLETE MINIMUM 3 VIEWS Milla Soto MD [address] [place] [phone] [place] [address] Referral ID Status Reason Start Date Expiration Date V isits Requested Visits Authorized [id number] Closed Auto-Generate d Referral 03/06/2022 04/05/[address] [facility] for referral (narrative)* Diagnostic Procedure Only (Routine) - Closed Specialty Diagnoses / Procedures Referred By Contac t Referred To Contact XR IMAGING Diagnoses Right ankle pain, unspecified chronicity Procedures XR FOOT GENERAL 3V AP/LAT/OBL RIGHT RADEX FOOT COMPLETE MINIMUM 3 VIEWS Ofelia Clay PA-C [address] [place] [phone] [place] [address] Referral ID Status Reason Start Date Expiration Date V isits Requested Visits Authorized [id number] Closed Auto-Generate d Referral 01/05/2022 02/04/2023 1 1 [facility] for referral (narrative)* Diagnostic Procedure Only (Routine) - Closed Specialty Diagnoses / Procedures Referred By Contac t Referred To Contact XR IMAGING Diagnoses Right ankle pain, unspecified chronicity Procedures XR FOOT GENERAL 3V AP/LAT/OBL RIGHT RADEX FOOT COMPLETE MINIMUM 3 VIEWS Milla Soto MD [address] [place] [phone] [place] [address] Referral ID Status Reason Start Date Expiration Date V isits Requested Visits Authorized [id number] Closed Auto-Generate d Referral 03/01/2022 03/31/2023 1 1 * Diagnostic Procedure Only (Routine) - Closed Specialty Diagnoses / Procedures Referred By Contac t Referred To Contact XR IMAGING Diagnoses Right ankle pain, unspecified chronicity Procedures XR ANKLE GENERAL 3V AP/LAT/OBL RIGHT RADEX ANKLE COMPLETE MINIMUM 3 VIEWS Milla Soto MD [address] [place] [phone] [place] [address] Referral ID Status Reason Start Date Expiration Date V isits Requested Visits Authorized [id number] Closed Auto-Generate d Referral 01/05/2022 02/04/2023 1 1 [facility] for referral (narrative)* Diagnostic Procedure Only (Routine) - Closed Specialty Diagnoses / Procedures Referred By Contac t Referred To Contact XR IMAGING Diagnoses Acquired cavovarus deformity of foot, right Procedures XR ANKLE GENERAL 3V AP/LAT/OBL RIGHT RADEX ANKLE COMPLETE MINIMUM 3 VIEWS Julio Kumari PA-C [address] [place] [address] Xr Imaging [place] [address] Referral ID Status Reason Start Date Expiration Date V isits Requested Visits Authorized [id number] Closed Auto-Generate d Referral 11/23/2021 12/23/2022 1 1 * Diagnostic Procedure Only (Routine) - Closed Specialty Diagnoses / Procedures Referred By Contac t Referred To Contact XR IMAGING Diagnoses Acquired cavovarus deformity of foot, right Procedures XR FOOT GENERAL 3V AP/LAT/OBL RIGHT RADEX FOOT COMPLETE MINIMUM 3 VIEWS Julio Kumari PA-C [address] [place] [phone] [place] [address] Referral ID Status Reason Start Date Expiration Date V isits Requested Visits Authorized [id number] Closed Auto-Generate d Referral 11/23/2021 12/23/2022 1 1 [facility] for referral (narrative)* Diagnostic Procedure Only (Routine) - Closed Specialty Diagnoses / Procedures Referred By Contac t Referred To Contact XR IMAGING Diagnoses Acquired cavovarus deformity of foot, right Procedures XR ANKLE GENERAL 3V AP/LAT/OBL RIGHT RADEX ANKLE COMPLETE MINIMUM 3 VIEWS Milla Soto MD [address] [place] [address] [place] [address] Referral ID Status Reason Start Date Expiration Date V isits Requested Visits Authorized [id number] Closed Auto-Generate d Referral 10/13/2021 11/12/2022 1 1 * Diagnostic Procedure Only (Routine) - Closed Specialty Diagnoses / Procedures Referred By Contac t Referred To Contact XR IMAGING Diagnoses Acquired cavovarus deformity of foot, right Procedures XR FOOT GENERAL 3V AP/LAT/OBL RIGHT RADEX FOOT COMPLETE MINIMUM 3 VIEWS Milla Soto MD [address] [place] [phone] [place] [address] Referral ID Status Reason Start Date Expiration Date V isits Requested Visits Authorized [id number] Closed Auto-Generate d Referral 10/13/2021 11/12/2022 1 1 [facility] (narrative)* Diagnostic Procedure Only (Routine) - Closed Specialty Diagnoses / Procedures Referred By Contac t Referred To Contact XR IMAGING Diagnoses Pain in joint involving right ankle and foot Procedures XR FOOT GENERAL 3V AP/LAT/OBL RIGHT RADEX FOOT COMPLETE MINIMUM 3 VIEWS Milla Soto MD [address] [place] [phone] [place] [address] Referral ID Status Reason Start Date Expiration Date V isits Requested Visits Authorized [id number] Closed Auto-Generate d Referral 07/28/2021 08/27/2022 1 1 * Diagnostic Procedure Only (Routine) - Closed Specialty Diagnoses / Procedures Referred By Contac t Referred To Contact XR IMAGING Diagnoses Pain in joint involving right ankle and foot Procedures XR ANKLE GENERAL 3V AP/LAT/OBL RIGHT RADEX ANKLE COMPLETE MINIMUM 3 VIEWS Milla Soto MD [address] [place] [address] Xr Imaging [id number] Referral ID Status Reason Start Date Expiration Date V isits Requested Visits Authorized [id number] Closed Auto-Generate d Referral 07/28/2021 08/27/2022 1 1 [facility] (narrative)No reason for referral information availableWMiami Valley Hospital Work Phone: Reason for visit Narrative* Diagnostic Procedure Only (Routine) - Closed Specialty Diagnoses / Procedures Referred By Contac t Referred To Contact XR IMAGING Diagnoses Acquired cavovarus deformity of foot, right Procedures XR ANKLE GENERAL 3V AP/LAT/OBL RIGHT RADEX ANKLE COMPLETE MINIMUM 3 VIEWS Milla Soto MD [address] [place] [address] Xr Imaging [facility] Referral ID Status Reason Start Date Expiration Date V isits Requested Visits Authorized [id number] Closed Auto-Generate d Referral 03/06/2022 04/05/2023 1 1 [facility] Narrative* Diagnostic Procedure Only (Routine) - Closed Specialty Diagnoses / Procedures Referred By Contac t Referred To Contact XR IMAGING Diagnoses Pain in joint involving right ankle and foot Peroneal tendinitis of right lower extremity Procedures XR CALCANEUS 2V AXIAL/LAT RIGHT RADEX CALCANEUS MINIMUM 2 VIEWS Milla Soto MD [address] [place] [id number] Xr [facility] Referral ID Status Reason Start Date Expiration Date V isits Requested Visits Authorized [id number] Closed Auto-Generate d Referral 07/28/2021 08/27/2022 1 1 [facility] Summary Purpose Family History No Family History Records FoundNo Family History Records FoundNo Family History Records FoundNo Family History Records FoundNo Family History Records Found Advance Directives No Advanced Directives Records Found Advance Directive Response Recorded Date/ Time Living Will No May 03 11:13am Power of Veterinary Hospital Shift Lead No May 03, 2019 11:13am Documents on File Type Date Recorded Patient Medical Insurance Claims Specialist Expl anation Advance Directive(s) 08/04/2021 6:27 AM Advance Directive(s) 07/29/2021 9:33 AM Documents on File Type Date Recorded Patient Medical Insurance Claims Specialist Expl anation Advance Directive(s) 08/04/2021 6:27 AM Advance Directive(s) 07/29/2021 9:33 AM Documents on File Type Date Recorded Patient Medical Insurance Claims Specialist Expl anation Advance Directive(s) 09/06/2021 5:58 PM Advance Directive(s) 08/04/2021 6:27 AM Advance Directive(s) 07/29/2021 9:33 AM Documents on File Type Date Recorded Patient Medical Insurance Claims Specialist Expl anation Advance Directive(s) 09/06/2021 5:58 PM Advance Directive(s) 08/04/2021 6:27 AM Advance Directive(s) 07/29/2021 9:33 AM Advance Directive Response Recorded Date/ Time Living Will No December 03 11:00am Power of Veterinary Hospital Shift Lead No December 03 11:00am Advance Directive Response Recorded Date/ Time Living Will No December 03 10:00am Power of Veterinary Hospital Shift Lead No December 03 10:00am Advance Directive Response Recorded Date/ Time Living Will No March 09 1:06am Do you have a Healthcare Power of Veterinary Hospital Shift Lead? No March 09, 2024 1:06am Living Will No May 10 2:44am Do you have a Healthcare Power of Veterinary Hospital Shift Lead? No May 10, 2024 2:44am Living Will No April 09 1:09am Do you have a Healthcare Power of Veterinary Hospital Shift Lead? No April 09, 2024 1:09am Living Will No June 07, 2024 2:07am Do you have a Healthcare Power of Veterinary Hospital Shift Lead? No June 07, 2024 2:07am Advance Directive Response Recorded Date/ Time Living Will No May 10 2:44am Do you have a Healthcare Power of Veterinary Hospital Shift Lead? No May 10, 2024 2:44am Living Will No July 08, 2024 12:44am Do you have a Healthcare Power of Veterinary Hospital Shift Lead? No July 08, 2024 12:44am Living Will No June 07, 2024 2:07am Do you have a Healthcare Power of Veterinary Hospital Shift Lead? No June 07, 2024 2:07am Advance Directive Response Recorded Date/ Time Living Will No May 10 2:44am Do you have a Healthcare Power of Veterinary Hospital Shift Lead? No May 10, 2024 2:44am Living Will No July 08, 2024 12:44am Do you have a Healthcare Power of Veterinary Hospital Shift Lead? No July 08, 2024 12:44am Living Will No June 07, 2024 2:07am Do you have a Healthcare Power of Veterinary Hospital Shift Lead? No June 07, 2024 2:07am Living Will No August 07, 2024 12 :16am Do you have a Healthcare Power of Veterinary Hospital Shift Lead? No August 07, 2024 12:16am Advance Directive Response Recorded Date/ Time Living Will No July 08, 2024 12:44am Do you have a Healthcare Power of Veterinary Hospital Shift Lead? No July 08, 2024 12:44am Living Will No June 07, 2024 2:07am Do you have a Healthcare Power of Veterinary Hospital Shift Lead? No June 07, 2024 2:07am Living Will No August 07, 2024 12 :16am Do you have a Healthcare Power of Veterinary Hospital Shift Lead? No August 07, 2024 12:16am Advance Directive Response Recorded Date/ Time Living Will No July 08, 2024 12:44am Do you have a Healthcare Power of Veterinary Hospital Shift Lead? No July 08, 2024 12:44am Living Will No August 07, 2024 12 :16am Do you have a Healthcare Power of Veterinary Hospital Shift Lead? No August 07, 2024 12:16am Chief [...] 5:34p m Chief Complaint Admit Date OBESITY June 09, 2024 11:3 3am OBESITY July 17, 2024 10: 26am OBESITY August 21, 2024 10:[address]/SINUS COMPLAINT September 03, 2024 5:34p m pain in LB with radiation to R knee October 06, 2024 12:43pm Chief Complaint Admit Date OBESITY July 17, 2024 10: 26am OBESITY August 21, 2024 10:[address]/SINUS COMPLAINT September 03, 2024 5:34p m pain in LB with radiation to R knee October 06, 2024 12:43pm Reason for Referral Specialty Diagnoses / Procedures Referred By Kavya cohn Referred To Contact MR IMAGING Diagnoses Peroneal tendinitis of right lower extremity Procedures MRI ANKLE WO IVCON RT MRI ANY JT LOWER EXTREM W/O CONTRAST Milla Rabago MD [address] [place] [address] Mr Imaging Referral ID Status Reason Start Date Expiration Date V isits Requested Visits Authorized [id number] Closed Auto-Generate d Referral 07/28/2021 08/27/2022 1 1 Health Concerns Infection Onset Date Last Indicated Resolved Time COVID-19 Rule-Out 09/20/2021 09/20/2021 09/22/2021 3:12 PM EDT Additional Source Comments (unrecognized sect ion and content) No Status Records FoundNo Status Records FoundNo Status Records FoundNo Status Records FoundNo Status Records Found INFORMATION SOURCE (unrecogn ized section and content) DATE CREATED AUTHOR 07/22/2020 [facility] DATE CREATED AUTHOR AUTHOR'S ORGANIZ ATION 08/12/2020 [facility] DATE CREATED AUTHOR AUTHOR'S ORGANIZ ATION 06/26/[address] [facility] DATE CREATED AUTHOR AUTHOR'S ORGANIZ ATION 06/09/2022 [facility] DATE CREATED AUTHOR AUTHOR'S ORGANIZ ATION 10/29/2024 [facility] Source Comments (unrecognize d section and content) In the event this informatio n is protected by the Federal Confidentiality of Alcohol and Drug Abuse Patient Records regulations: The Federal rules restrict any use of the information to criminally investigate or prosecute any alcohol or drug abuse patient.[facility] the event this information is protected by the Federal Confidentiality of Alcohol and Drug Abuse Patient Records regulations: The Federal rules restrict any use of the information to criminally investigate or prosecute any alcohol or drug abuse patient.[facility] SystemIn the event this information is protected by the Federal Confidentiality of Alcohol and Drug Abuse Patient Records regulations: The Federal rules restrict any use of the information to criminally investigate or prosecute any alcohol or drug abuse patient.[facility] SystemIn the event this information is protected by the Federal Confidentiality of Alcohol and Drug Abuse Patient Records regulations: The Federal rules restrict any use of the information to criminally investigate or prosecute any alcohol or drug abuse patient.[facility] SystemIn the event this information is protected by the Federal Confidentiality of Alcohol and Drug Abuse Patient Records regulations: The Federal rules restrict any use of the information to criminally investigate or prosecute any alcohol or drug abuse patient.[facility] SystemIn the event this information is protected by the Federal Confidentiality of Alcohol and Drug Abuse Patient Records regulations: The Federal rules restrict any use of the information to criminally investigate or prosecute any alcohol or drug abuse patient.[facility] SystemIn the event this information is protected by the Federal Confidentiality of Alcohol and Drug Abuse Patient Records regulations: The Federal rules restrict any use of the information to criminally investigate or prosecute any alcohol or drug abuse patient.[facility] SystemIn the event this information is protected by the Federal Confidentiality of Alcohol and Drug Abuse Patient Records regulations: The Federal rules restrict any use of the information to criminally investigate or prosecute any alcohol or drug abuse patient.[facility] SystemIn the event this information is protected by the Federal Confidentiality of Alcohol and Drug Abuse Patient Records regulations: The Federal rules restrict any use of the information to criminally investigate or prosecute any alcohol or drug abuse patient.[facility] SystemIn the event this information is protected by the Federal Confidentiality of Alcohol and Drug Abuse Patient Records regulations: The Federal rules restrict any use of the information to criminally investigate or prosecute any alcohol or drug abuse patient.[facility] SystemIn the event this information is protected by the Federal Confidentiality of Alcohol and Drug Abuse Patient Records regulations: The Federal rules restrict any use of the information to criminally investigate or prosecute any alcohol or drug abuse patient.[facility] SystemIn the event this information is protected by the Federal Confidentiality of Alcohol and Drug Abuse Patient Records regulations: The Federal rules restrict any use of the information to criminally investigate or prosecute any alcohol or drug abuse patient.[facility] SystemIn the event this information is protected by the Federal Confidentiality of Alcohol and Drug Abuse Patient Records regulations: The Federal rules restrict any use of the information to criminally investigate or prosecute any alcohol or drug abuse patient.[facility] SystemIn the event this information is protected by the Federal Confidentiality of Alcohol and Drug Abuse Patient Records regulations: The Federal rules restrict any use of the information to criminally investigate or prosecute any alcohol or drug abuse patient.[facility] SystemIn the event this information is protected by the Federal Confidentiality of Alcohol and Drug Abuse Patient Records regulations: The Federal rules restrict any use of the information to criminally investigate or prosecute any alcohol or drug abuse patient.[facility] SystemIn the event this information is protected by the Federal Confidentiality of Alcohol and Drug Abuse Patient Records regulations: The Federal rules restrict any use of the information to criminally investigate or prosecute any alcohol or drug abuse patient.[facility] SystemIn the event this information is protected by the Federal Confidentiality of Alcohol and Drug Abuse Patient Records regulations: The Federal rules restrict any use of the information to criminally investigate or prosecute any alcohol or drug abuse patient.[facility] SystemIn the event this information is protected by the Federal Confidentiality of Alcohol and Drug Abuse Patient Records regulations: The Federal rules restrict any use of the information to criminally investigate or prosecute any alcohol or drug abuse patient.[facility] SystemIn the event this information is protected by the Federal Confidentiality of Alcohol and Drug Abuse Patient Records regulations: The Federal rules restrict any use of the information to criminally investigate or prosecute any alcohol or drug abuse patient.[facility] SystemIn the event this information is protected by the Federal Confidentiality of Alcohol and Drug Abuse Patient Records regulations: The Federal rules restrict any use of the information to criminally investigate or prosecute any alcohol or drug abuse patient.[facility] SystemIn the event this information is protected by the Federal Confidentiality of Alcohol and Drug Abuse Patient Records regulations: The Federal rules restrict any use of the information to criminally investigate or prosecute any alcohol or drug abuse patient.[facility] SystemIn the event this information is protected by the Federal Confidentiality of Alcohol and Drug Abuse Patient Records regulations: The Federal rules restrict any use of the information to criminally investigate or prosecute any alcohol or drug abuse patient.[facility] SystemIn the event this information is protected by the Federal Confidentiality of Alcohol and Drug Abuse Patient Records regulations: The Federal rules restrict any use of the information to criminally investigate or prosecute any alcohol or drug abuse patient.[facility] SystemIn the event this information is protected by the Federal Confidentiality of Alcohol and Drug Abuse Patient Records regulations: The Federal rules restrict any use of the information to criminally investigate or prosecute any alcohol or drug abuse patient.[facility] Reason for Visit (unrecogniz ed section and content) Reason Comments New Pain Reason Comments Follow Up Post Op Reason Comments Radiology MRI RT ANKLE W/O Specialty Diagnoses / Procedures Referred By Contac t Referred To Contact MR IMAGING Diagnoses Peroneal tendinitis of right lower extremity Procedures MRI ANKLE WO IVCON RT MRI ANY JT LOWER EXTREM W/O CONTRAST Milla Rabago MD [address] [place] [address] Mr Imaging Referral ID Status Reason Start Date Expiration Date V isits Requested Visits Authorized [id number] Closed Auto-Generate d Referral 07/28/2021 08/27/2022 1 [...] MINIMUM 3 VIEWS Ofelia Clay PA-C [address] [place] [address] [place] [address] Referral ID Status Reason Start Date Expiration Date V isits Requested Visits Authorized [id number] Closed Auto-Generate d Referral 01/05/2022 02/04/2023 1 1 Reason Comments Radio Gen RMP Specialty Diagnoses / Procedures Referred By Contac t Referred To Contact XR IMAGING Diagnoses Right ankle pain, unspecified chronicity Procedures XR ANKLE GENERAL 3V AP/LAT/OBL RIGHT RADEX ANKLE COMPLETE MINIMUM 3 VIEWS Milla Soto MD [address] [place] [phone] [place] [address] Referral ID Status Reason Start Date Expiration Date V isits Requested Visits Authorized [id number] Closed Auto-Generate d Referral 01/05/2022 02/04/2023 1 1 Specialty Diagnoses / Procedures Referred By Contac t Referred To Contact XR IMAGING Diagnoses Acquired cavovarus deformity of foot, right Procedures XR FOOT GENERAL 3V AP/LAT/OBL RIGHT RADEX FOOT COMPLETE MINIMUM 3 VIEWS Julio Kumari PA-C [address] [facility] [place] [phone] [place] [address] Referral ID Status Reason Start Date Expiration Date V isits Requested Visits Authorized [id number] Closed Auto-Generate d Referral 11/23/2021 12/23/2022 1 1 Specialty Diagnoses / Procedures Referred By Contac t Referred To Contact XR IMAGING Diagnoses Acquired cavovarus deformity of foot, right Procedures XR ANKLE GENERAL 3V AP/LAT/OBL RIGHT RADEX ANKLE COMPLETE MINIMUM 3 VIEWS Milla Soto MD [address] [place] [phone] [place] [address] Referral ID Status Reason Start Date Expiration Date V isits Requested Visits Authorized [id number] Closed Auto-Generate d Referral 10/13/2021 11/12/2022 1 1 Specialty Diagnoses / Procedures Referred By Contac t Referred To Contact XR IMAGING Diagnoses Pain in joint involving right ankle and foot Procedures XR FOOT GENERAL 3V AP/LAT/OBL RIGHT RADEX FOOT COMPLETE MINIMUM 3 VIEWS Milla Soto MD [address] [place] [address] [place] [address] Referral ID Status Reason Start Date Expiration Date V isits Requested Visits Authorized [id number] Closed Auto-Generate d Referral 07/28/2021 08/27/2022 1 1 Care Teams (unrecognized sec tion and content) 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 Specialty Start Date End Date Sal Arceo MD [address] 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 [place] [address] PCP - General Family Practice 07/28/21 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 Specialty Start Date End Date Sal Arceo MD [address] [facility] [place] [address] PCP - General Family Practice 07/28/21 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 Specialty Start Date End Date Sal Arceo MD [address] [facility] [place] [address] PCP - General Family Practice 07/28/21 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 Specialty Start Date End Date Sal Arceo MD [address] [facility] [place] [address] PCP - General Family Practice 07/28/21 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 Specialty Start Date End Date Sal Arceo MD [address] [place] [address] PCP - General Family Practice 07/28/21 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 Specialty Start Date End Date Sal Arceo MD [address] [place] [address] PCP - General Family Practice 07/28/21 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 Specialty Start Date End Date Sal Arceo MD [address] [facility] [address] PCP - General Family Practice 07/28/21 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 Specialty Start Date End Date Sal Arceo MD [address] [place] [address] PCP - General Family Practice 07/28/21 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 Specialty Start Date End Date Sal Arceo MD [address] [place] [address] PCP - General Family Medicine 07/28/21 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 Ayla Rodriguez MD Family Provider Active Dr. 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 Specialty Start Date End Date Sal Arceo MD [address] [place], [place] [address] PCP - General Family Medicine 07/28/21 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 Specialty Start Date End Date Sal Arceo MD [address] [place], [place] [address] PCP - General Family Medicine 07/28/21 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 Specialty Start Date End Date Sal Arceo MD [address] [place], [place] [address] PCP - General Family Medicine 07/28/21 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 Specialty Start Date End Date Sal Arceo MD [address] [place], [place] [address] PCP - General Family Medicine 07/28/21 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 Specialty Start Date End Date Sal Arceo MD [address] [place] [address] PCP - General Family Medicine 07/28/21 Team [...] 2024 End: July 07, 2024 Dr. Sal rAceo MD Attending Provider Active Start: June 09, [...] August 21, 2024 End: September 08, 2024 Team Status: Active Member Role/Relationship Status Dates Dr. Sal Arceo MD Primary Care Provider Acti ve Team Status: Inactive Member Role/Relationship Status Dates Dr. Sal Arceo MD Primary Care Provider Acti ve Start: June 09, 2024 End: July 07, 2024 Dr. Sal Arceo MD Attending Provider Active Start: June 09, 2024 End: July 07, 2024 Dr. Sal Arceo MD Referring Provider Active Start: June 09, 2024 End: July 07, 2024 Team Status: Inactive Member Role/Relationship Status Dates Dr. Sal Arceo MD Primary Care Provider Acti ve Start: July 17, 2024 End: August 06, 2024 Dr. Sal Arceo MD Attending Provider Active Start: July 17, 2024 End: August 06, 2024 Dr. Sal Arceo MD Referring Provider Active Start: July 17, 2024 End: August 06, 2024 Team Status: Inactive Member Role/Relationship Status Dates Dr. Sal Arceo MD Primary Care Provider Acti ve Start: August 21, 2024 End: September 08, 2024 Dr. Sal Arceo MD Attending Provider Active Start: August 21, 2024 End: September 08, 2024 Dr. Sal Arceo MD Referring Provider Active Start: August 21, 2024 End: September 08, 2024 Team Status: Inactive Member Role/Relationship Status Dates Dr. Sal Arceo MD Primary Care Provider Acti ve Start: September 03, 2024 End: September 03, 2024 Dr. Sal Arceo MD Referring Provider Active Start: September 03, 2024 End: September 03, 2024 Jarrod DIAZ, PA Attending Provider Active Start: September 03, 2024 End: September 03, 2024 Team Status: Inactive Member Role/Relationship Status Dates Dr. Sal Arceo MD Primary Care Provider Acti ve Start: October 02, 2024 End: October 02, 2024 Dr. Sal Arceo MD Attending Provider Active Start: October 02, 2024 End: October 02, 2024 Dr. Sal Arceo MD Referring Provider Active Start: October 02, 2024 End: October 02, 2024 Team Status: Active Member Role/Relationship Status Dates Dr. Sal Arceo MD Primary Care Provider Acti ve Start: October 06, 2024 Dr. Sal Arceo MD Attending Provider Active Start: October 06, 2024 Dr. Sal Arceo MD Referring Provider Active Start: October 06, 2024 Team Status: Inactive Member Role/Relationship Status Dates Dr. Sal Arceo MD Primary Care Provider Acti ve Start: July 17, 2024 End: August 06, 2024 Dr. Sal Arceo MD Attending Provider Active Start: July 17, 2024 End: August 06, 2024 Dr. Sal Arceo MD Referring Provider Active Start: July 17, 2024 End: August 06, 2024 Team Status: Inactive Member Role/Relationship Status Dates Dr. Sal Arceo MD Primary Care Provider Acti ve Start: August 21, 2024 End: September 08, 2024 Dr. Sal Acreo MD Attending Provider Active Start: August 21, 2024 End: September 08, 2024 Dr. Sal Arceo MD Referring Provider Active Start: August 21, 2024 End: September 08, 2024 Team Status: Inactive Member Role/Relationship Status Dates Dr. Sal Arceo MD Primary Care Provider Acti ve Start: September 03, 2024 End: September 03, 2024 Dr. Sal Arceo MD Referring Provider Active Start: September 03, 2024 End: September 03, 2024 Jarrod DIAZ, PA Attending Provider Active Start: September 03, 2024 End: September 03, 2024 Team Status: Inactive Member Role/Relationship Status Dates Dr. Sal Arceo MD Primary Care Provider Acti ve Start: October 02, 2024 End: October 02, 2024 Dr. Sal Arceo MD Attending Provider Active Start: October 02, 2024 End: October 02, 2024 Dr. Sal Arceo MD Referring Provider Active Start: October 02, 2024 End: October 02, 2024 Team Status: Inactive Member Role/Relationship Status Dates Dr. Sal Arceo MD Primary Care Provider Acti ve Start: October 06, 2024 End: October 06, 2024 Dr. Sal Arceo MD Attending Provider Active Start: October 06, 2024 End: October 06, 2024 Dr. Sal Arceo MD Referring Provider Active Start: October 06, 2024 End: October 06, 2024 Goals (unrecognized section and content) Goals [...] BE BASED ON THE PRIMARY CLINICAL RECORDS. [facility]. provides no warranty or guarantee of the accuracy or completeness of information in this document.
--- NOTE | 2024-10-29 17:24 | CA.SCORE ---
Calcium Scoring Date of Study:: 10/29/24 Indications Indications: Hyperlipidemia Coronary Calcium Scoring: High-resolution Computed Tomographic imaging of the chest was performed on [10/29/2024], with particular attention paid to the coronary arteries. Images from the examination were analyzed for the presence and extent of coronary artery calcification , using coronary calcium quantification software. The patient tolerated the procedure well and there were no complications. The results of the coronary calcification analysis are provided below. Findings Coronary Artery Left Main (LM): 0 Left Anterior Descending (LAD): 5 Left Circumflex (LCX): 0 Right Coronary Artery (RCA): 0 Total Agatston Score: 5 Percentile Rankinth percentile Calcium Scoring Interpretation: Different methods to categorize the overall amount of coronary plaque. Overall amount CAC SIS Visual of coronary plaque P1 Mild -100 <2 1-2 vessels with mild amount of plaque P2 Moderate 101-300 3-4 1-2 vessels with moderate amount, 3 vessels with mild amount of plaque P3 Severe 301-999 5-7 3 vessels with moderate amount, 1 vessel with severe amount of plaque P4 Extensive >1000 >8 2-3 vessels with severe amount of plaque Calcium Score: Mild: 1-2 vessels w/mild amount of plaque Conclusion: Mild focal atherosclerotic plaquing
== END | disposition home or self-care (01) ==
LOC: CT 07:10
PROVIDERS: PCP Family Medicine; Referring Provider Family Medicine; Visit Provider Family Medicine
DX: E78.5 Hyperlipidemia, unspecified (principal)
CPT/HCPCS: 75571; 76380

== ENCOUNTER 2024-11-18 11:25 | Outpatient (RCR) | payer OTHER, SELFPAY | END 2024-12-07 23:59 | LOC: NS 11:25 | PROVIDERS: PCP Family Medicine; Referring Provider Family Medicine; Visit Provider Family Medicine | DX: Z71.3 Dietary counseling and surveillance (principal); E66.3 Overweight; Z68.26 Body mass index [BMI] 26.0-26.9, adult | CPT/HCPCS: 97803 ==

== ENCOUNTER → 2025-01-08 | Outpatient (CLI) | payer OTHER, SELFPAY | END | disposition home or self-care (01) | LOC: MRI 15:33 | PROVIDERS: PCP Family Medicine; Referring Provider Family Medicine; Visit Provider Family Medicine | DX: M51.369 Other intervertebral disc degeneration, lumbar region without mention of lumbar back pain or lower extremity pain (principal) | CPT/HCPCS: 72148 ==

== ENCOUNTER 2025-01-29 10:52 | Outpatient (RCR) | payer OTHER, SELFPAY | END 2025-02-06 23:59 | LOC: NS 10:52 | PROVIDERS: PCP Family Medicine; Referring Provider Family Medicine; Visit Provider Family Medicine | DX: E66.3 Overweight (principal); Z68.26 Body mass index [BMI] 26.0-26.9, adult; Z71.3 Dietary counseling and surveillance | CPT/HCPCS: 97803 ==

== ENCOUNTER 2025-02-26 10:01 | Outpatient (RCR) | payer OTHER, SELFPAY | END 2025-03-08 23:59 | LOC: NS 10:01 | PROVIDERS: PCP Family Medicine; Referring Provider Family Medicine; Visit Provider Family Medicine | DX: Z71.3 Dietary counseling and surveillance (principal); E66.3 Overweight; Z68.28 Body mass index [BMI] 28.0-28.9, adult | CPT/HCPCS: 97803 ==

== ENCOUNTER → 2025-03-25 | Outpatient (CLI) | payer OTHER, SELFPAY ==
--- OUTSIDE RECORDS SUMMARY | 2025-03-25 06:43 | XMS RPT_ITS | CCD ---
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 Name Role Phone MARIELA HOFFMAN Admitting Unavailable [...] SOTO Referring Unavailable SAL ARCEO Primary Care Unavailabl [...] Unavai lable MILLA SOTO Referring Unavailable [place]ELOS [place] Primary Care Unavailabl e MILLA SOTO Referring Unavailable [place]IELOS [place] Primary Care Unavailabl e MILLA SOTO Admitting Unavailable MILLA SOTO Attending Unavailable MILLA SOTO Attending Unavailable MILLA SOTO Admitting Unavailable MLILA SOTO Referring Unavailable MARIELOS [place] Primary Care Unavailabl e MILLA SOTO Referring Unavailable [place]IELOS [place] Primary Care Unavailabl e MILLA SOTO Attending Unavailable MILLA SOTO Referring Unavailable [place]ELOS [place] Primary Care Unavailabl e [facility] Unavailabl e MILLA SOTO Attending Unavailable MILLA SOTO Referring Unavailable [facility] Primary Care Unavailabl e MILLA SOTO Referring Unavailable [place]ELOS [place] Primary Care Unavailabl e MILLA SOTO Attending Unavailable MILLA SOTO Referring Unavailable MILLA SOTO Referring Unavailable MILLA SOTO Attending Unavailable MARIELOS [place] Primary Care Unavailabl e MILLA SOTO Referring Unavailable [place]ELOS [place] Primary Care Unavailabl e [place]ELOS [place] Primary Care Unavailabl e MILLA SOTO Referring Unavailable [facility] Primary Care Unavailabl e MILLA SOTO Referring Unavailable MILLA SOTO Attending Unavailable [place]IELOS [place] Primary Care Unavailabl e MILLA SOTO Referring Unavailable [facility] [place] Primary Care Unavailabl e [place]ELOS [place] Primary Care Unavailabl e [facility] Primary Care Unavailabl e MILLA SOTO Referring Unavailable OFELIA CLAY Attending Unavailable MARIELOS [facility] Primary Care Unavailabl e MILLA SOTO Referring Unavailable SAL ARCEO Primary Care Unavailabl MILLA Hewitt Referring Unavailable SAL ARCEO Primary Care Unavailabl e MILLA SOTO Referring Unavailable MILLA SOTO Attending Unavailable Sal Arceo MD Primary Care Provider Marielos SAMUELS, Dr. Dueñas Primary Care Provider Marielos SAMUELS, Dr. Dueñas Attending Provider Marielos SAMUELS, Dr. Dueñas Referring Provider [phone] Marielos SAMUELS, Dr. Dueñas Primary Care Provider Marielos SAMUELS, Dr. Dueñas Attending Provider Marielos SAMUELS, Dr. Dueñas Referring Provider Jarrod Phillip Attending Provider Marielos SAMUELS, Dr. Dueñas Primary Care Provider Marielos SAMUELS, Dr. Dueñas Attending Provider Marielos SAMUELS, Dr. Dueñas Referring Provider Marielos SAMUELS, Dr. Dueñas Primary Care Provider Marielos SAMUELS, Dr. Dueñas Attending Provider Marielos SAMUELS, Dr. Dueñas Referring Provider [phone] Marielos SAMUELS, Dr. Dueñas Other Provider Francy SAMUELS, Dr. Bang Attending Provider Marielos SAMUELS, Dr. Dueñas Primary Care Provider Marielos SAMUELS, Dr. Dueñas Attending Provider Marielos SAMEULS, Dr. Dueñas Referring Provider Sal Arceo Referring Unavailable Sal Arceo Attending Unavailable Sal Arceo Primary Care Unavailable Sal Arceo Primary Care Unavailable Sal Arceo Referring Unavailable Yuan Mack Attending Unavailable Sal Arceo Referring Unavailable Marielos, Sal Primary Care Unavailable Jarrod Phillip Attending Unavailable Sal Arceo Primary Care Unavailable Ranney, Christopher Referring Unavailable Ranney, Christopher Consulting Unavailable Merritt Sen Attending Unavailable Ranney, Christopher Referring Unavailable Ranney, Christopher Attending Unavailable Ranney, Christopher Primary Care Unavailable Ranney, Christopher Primary Care Unavailable Ranney, [...] Ranney, Christopher Primary Care Unavailable Ranney, Christopher Primary Care Unavailable Ranney, [...] Attending Unavailable Ranney, Christopher Primary Care Unavailable Medications Current Medications Medication Drug Class(es) [...] Comment on above: Take 2 tablets by [facility] every 8 hours for 14 days. Take 2 tablets by [facility] every 8 hours for 28 days. acetaminophen 325 mg / oxyCODONE hydrochloride 5 mg oral tablet (20 sources) Opioid Agonist Start: 12-11-19 21 take [...] right foot amoxicillin 875 mg oral tablet (7 sources) Penicillin-class Antibacterial Start: 09-04-19 25 take 1 tablet by mouth twice daily Amoxicillin 875 mg tablet Active 875 mg PO TWICE A DAY 20 0 September 03, 2024 12:00am apixaban 2.5 mg oral tablet (20 sources) Factor Xa Inhibitor Start: 12-11-19 21 take 1 tablet by mouth every twelve hours Apixaban (Eliquis) 2.5 mg tablet Active 2.5 mg PO Q12H 60 0 December 10, 2020 12:00am aspirin 325 mg oral tablet (17 sources) Platelet Aggregation Inhibitor, Nonsteroidal Anti-inflammatory Drug Start: 09-22-19 End: 10-21-19 22 take 1 tablet by mouth once daily aspirin 325 mg tablet Take 1 tablet by mouth once daily for 28 days. 28 tablet 09/21/2021 Active Comment on above: Take 1 tablet by [facility] once daily for 28 days. atorvastatin 20 [...] on above: Take 1 capsule by mo ut twice daily. Take 1 capsule by mo [facility] twice daily for 7 days. ondansetron 4 mg oral tablet (5 sources) Serotonin-3 Receptor Antagonist Start: End: take 1 tablet by mouth every twelve [...] on above: Take 1 tablet by jocelynn every 8 hours as needed for nausea/vomiting. [...] mg / clavulanate 125 mg oral tablet (20 sources) Penicillin-class Antibacterial Start: 12-10-2020 End: 09-03-2024 [...] on above: Take 1 capsule by mo [facility] one time a week. take 1 capsule by mo [facility] every week esomeprazole 40 mg delayed release [...] Episodic Disorders of lipid metabolism (20 sources) Hypercholesterolemia ; Translations: [Pure hypercholesterolemia , unspecified] Onset: 07-29-2021 07-29-2021 Chronic Other and [...] sources) Obesity, unspecified; Translations: [Obesity, unspecified] Onset: 02-07-2025 Chronic Spondylosis; intervertebral disc disorders; other back problems (1 source) Radiculopathy, lumbar region; Translations: [Radiculopathy, lumbar region] Onset: 02-19-2025 Episodic Syncope (20 sources) Syncope; Translations: [Syncope and collapse] 05-04-2019 Episodic Unclassified (1 source) Congenital talipes calcaneovarus, unspecified foot; Translations: [Cavovarus deformity of foot] Onset: 08-04-2021 Unclassified (1 source) Other intervertebral disc degeneration, lumbar region without mention of lumbar back pain or lower extremity pain; Translations: [Other intervertebral disc degeneration, lumbar region without mention of lumbar back pain or lower extremity pain] Onset: 01-31-2025 Past or Other Problems Problem Classification Problem [...] Test Name Value Interpretation Reference Range Facility Spine Lumbar (Routine)on Spine Lumbar (Routine) [facility] [address] [place] [address] [id number] Spine Lumbar (Routine) MR#: [id number] Acct: [id number] Name: SAL PADILLA Rep #: [id number] : 1970 M Marce From: Michael armstrong MD PCP: Dr. Sal Arceo MD Status: REG CLI Study: Spine Lumbar (Routine) Date of Exam: 01/08/25 Exam# [id number] Ordering Dr: Sal Arceo PROCEDURE: SPINE LUMBAR (ROUTINE) 01/08/2025 REASON FOR EXAM: LUMBAR DDD WITH R LEG PARESTHESIAS AND ATROPHY OF CALF. TECHNIQUE: Procedure Code: MRISPL Modality: MR Procedure: SPINE LUMBAR (ROUTINE) FINDINGS: Normal lordosis. Diffuse spondylosis. No compression fracture. Degenerative endplate changes at L5-S1. Marrow signal intensity appears otherwise normal. Conus exhibits normal position, contour, and signal intensity. L1-2: Small disc bulge. L2-3: Broad-based disc bulge. Bilateral facet arthrosis. Mild left lateral recess stenosis. Mild bilateral foraminal stenosis. L3-4: Grade 1 retrolisthesis. Broad-based disc bulge predominates right paracentral to posterolateral. Bilateral facet arthrosis. Mild narrowing of the right lateral recess. Mild right foraminal stenosis. L4-5: Grade 1 retrolisthesis. Broad-based disc bulge. Bilateral facet arthrosis. Moderate bilateral foraminal stenosis with mild effacement of the L4 roots. L5-S1: Bilateral L5 pars defects. Broad-based disc protrusion. Bilateral facet arthrosis. Severe bilateral foraminal stenosis with effacement of the L5 roots. MRI/Spine Lumbar (Routine) IMPRESSION: L5-S1: Bilateral L5 pars defects. Disc protrusion. Foraminal effacement of the L5 roots. L4-5: Retrolisthesis and disc bulge with mild foraminal effacement of the L4 roots. L2-3: Disc bulge with mild left lateral recess and bilateral foraminal stenoses. L3-4: Retrolisthesis and disc bulge with mild right foraminal stenosis. Spondylosis. [facility] CC: Dr. Sal Arceo MD Content Assistant: Signed Normal [facility] Coronary Angiography CTon Coronary Angiography CT [facility] [address] [place] [address] 10/29/24 1724 MR#: [id number] Acct: [id number] Name: RANDYSAL KATIE Rep #: [id number] : 1970 54 From: Merritt Sen MD PCP: Dr. Sal Arceo MD Status:REG CLI Y Location: CT Calcium Scoring Date of Study:: 10/29/24 Indications Indications: Hyperlipidemia Coronary Calcium Scoring: High-resolution Computed Tomographic imaging of the chest was performed on [10/29/2024], with particular attention paid to the coronary arteries. Images from the examination were analyzed for the presence and extent of coronary artery calcification , using coronary calcium quantification software. The patient tolerated the procedure well and there were no complications. The results of the coronary calcification analysis are provided below. Findings Coronary Artery Left Main (LM): 0 Left Anterior Descending (LAD): 5 Left Circumflex (LCX): 0 Right Coronary Artery (RCA): 0 Total Agatston Score: 5 Percentile Rankinth percentile Calcium Scoring Interpretation: Different methods to categorize the overall amount of coronary plaque. Overall amount CAC SIS Visual of coronary plaque P1 Mild -100 <2 1-2 vessels with mild amount of plaque P2 Moderate 101-300 3-4 1-2 vessels with moderate amount, 3 vessels with mild amount of plaque P3 Severe 301-999 5-7 3 vessels with moderate amount, 1 vessel with severe amount of plaque P4 Extensive >1000 >8 2-3 vessels with severe amount of plaque Calcium Score: Mild: 1-2 vessels w/mild amount of plaque Conclusion: Mild focal atherosclerotic plaquing 10/29/24 1725 Date Merritt Sen [facility] (if applicable): Date CC: Dr. Sal Arceo MD; Dr. Merritt Sen MD Signed Normal [facility] Limited Chest CT Cardiac Onl yon 10-29-[address] Cardiac Only [facility] [address] [place] [address] Cardiac Only MR#: [id number] Acct: [id number] Name: RANDYSAL Rep #: [id number] : 1970 M 54 From: Tennille Rivera MD PCP: Dr. Sal Arceo MD Status: [facility] Study: Limited Chest CT Cardiac Only Date of Exam: Exam# [id number] Ordering Dr: Sal Arceo PROCEDURE: LIMITED CHEST CT CARDIAC ONLY 10/29/2024 REASON FOR EXAM: HLD TECHNIQUE: LIMITED CHEST CT CARDIAC ONLY Coronal and Sagittal reconstruction series were provided One or more dose reduction techniques were used (e.g., Automated exposure control, adjustment of the mA and/or kV according to patient size, use of iterative reconstruction technique). RADIATION DOSE SUMMARY: CTDlvol: 12.19 mGy DLP: 290.42 mGycm COMPARISON: None. FINDINGS: No cardiomegaly. No aortic aneurysm. Minimal atherosclerotic calcifications of the coronary arteries. Mildly enlarged mediastinal lymph nodes, nonspecific, for example a prevascular lymph node measures 14 x 5 mm. No acute bony abnormalities. The visualized lungs are clear. CT/Limited Chest CT Cardiac Only IMPRESSION: Nonspecific small mediastinal lymph nodes. Minimal atherosclerotic calcifications of the coronary arteries. No cardiomegaly. Reading Location: [facility] CC: Dr. Sal Arceo MD Content Assistant: Signed [facility] Inital Evaluation (1) - PTon 10-20-2024 Inital Evaluation (1) - PT [facility] Physical Therapy [facility] [address] [place] [address] [address] [place] [address] / REHABILITATION SERVICES INITIAL EVALUATION MR#: [id number] Acct: [id number] Name: SAL PADILLA Rep #: [id number] : 1970 54 From: Angelo Tucker PT, ATC Referring Dr.: Dr. Sal Arceo MD Status: REG RCR Insurance: [facility] S[employer] [facility]Y INSURANCE Patient's Visit Information [...] to be FAXED BACK to us at [phone] for Medicare purposes. For Medicare only, by signing this I certify the plan of care. Please let me know if there are questions or concerns regarding this plan of care. Physician Signature: Date : 10/20/24 7067 CC: Dr. Sal Arceo MD [facility] Signed Normal [facility] Knee 4 or More Viewson 10-06 Knee 4 or More Views [facility] [address] [place] [address] [id number] Knee 4 or More Views MR#: [id number] Acct: [id number] Name: RANDYSAL Rep #: [id number] : 1970 M Marce From: Cordell Landon MD PCP: Dr. Sal Arceo MD Status: REG CLI Study: Knee 4 or More Views Date of Exam: 10/06/24 Exam# [id number] Ordering Dr: Sal Arceo PROCEDURE: KNEE 4 [...] fracture or suspicious osseous lesion Reading Location: [id number] CC: Dr. Sal Arceo MD Content Assistant: Signed Normal [facility] L/S Spine w Bend Min 6 Vwon 10-06-2024 L/S Spine w Bend Min 6 Vw [facility] [address] [place], [place] [address] L/S Spine w Bend Min 6 Vw MR#: [id number] Acct: [id number] Name: SAL PADILLA Rep #: [id number] : 1970 M 54 From: Cordell Landon MD PCP: Dr. Sal Arceo MD Status: REG CLI Study: L/S Spine w Bend Min 6 Vw Date of Exam: Exam# [id number] Ordering Dr: Sal Arceo PROCEDURE: L/S SPINE [...] degenerative changes, no acute findings Reading Location: [facility] CC: Dr. Sal Arceo MD Content Assistant: Signed Normal [facility] Calculated very low density lipoprotein (VLDL) cholesterol measurementOrdered By: Sal Arceo on 10-02-2024 Calculated very low density lipoprotein (VLDL) cholesterol measurement 25 mg/dL 5-40 [facility] LDL calc ser/plasOrdered By: Sal Arceo on 10-02-2024 Cholesterol in LDL [Mass/Vol] 169 mg/dL [facility] Comment on above: Czibxfeuiy=559-627 m g/dL & Higher Virt=071 mg/dL or greater Lipid Profileon 10-02-2024 CHOL:HDL 5.91 Normal [facility] Comment on above: Order Comment: Order Date: 10/04/23 Order Info: [id number] - LIPID Performed By: #### L 500.4100 #### [facility] [address] [place], [address] Cholesterol [Mass/Vol] 234 mg/dL High <=200 [facility] Comment on above: Order Comment: Order Date: 10/04/23 Order Info: [id number] - LIPID Result Comment: Chol esterol level, Desirable <200 mg/dL Borderline high cholesterol 200-239 mg/dL High cholesterol >=240 mg/dL Recommendations of the NCEP Adult Treatment Panel for the following risk-cutoff thresholds for the [place] population. Performed By: #### L 500.4100 #### [facility] [address] [place], [address] Cholesterol in HDL [Mass/Vol] 40 mg/dL Normal [facility] Comment on above: Order Comment: Order Date: 10/04/23 Order Info: [id number] - LIPID Result Comment: Cece onal Cholesterol Education Program (NCEP) guidelines: <40 mg/dL: Low HDL-cholesterol (major risk factor for CHD) >= 60 mg/dL: High HDL-cholesterol (negative risk factor for CHD) HDL-cholesterol is affected by a number of factors, e.g. smoking, exercise, hormones, sex and age. Performed By: #### L 500.4100 #### [facility] [address] [place], [address] Cholesterol in LDL [Mass/Vol] 169 mg/dL Normal [facility] Comment on above: Order Comment: Order Date: 10/04/23 Order Info: [id number] - LIPID Result Comment: Bord eajbce=868-765 mg/dL Higher Jvpz=226 mg/dL or greater Performed By: #### L 500.4100 #### [facility] [address] [place], [address] Cholesterol in VLDL [Mass/Vol] 25 mg/dL Normal 5-40 [facility] Comment on above: Order Comment: Order Date: 10/04/23 Order Info: [id number] - LIPID Performed By: #### L 500.4100 #### [facility] [address] [facility] [place], [place], [address] Triglyceride [Mass/Vol] 125 mg/dL Normal [facility] Comment on above: Order Comment: Order Date: 10/04/23 Order Info: [id number] - LIPID Result Comment: The drugs N-Acetylcysteine and Metamizole may falsely depress this assay. Normal range: <150 mg/dL Borderline High: 150-199 mg/dL High: 200-499 mg/dL Very High: >500 mg/dL Performed By: #### L 500.4100 #### [facility] [address] [place], [place], [address] Screening total cholesterol/ high density lipoprotein (HDL) cholesterol ratioOrdered By: Sal Arceo on 10-02-2024 Cholesterol.total/Chol esterol in HDL [Mass ratio] 5.91 {ratio} [facility] Serum or plasma cholesterol in HDL measurement (mass/volume)Ordered By: Sal Arceo on 10-02-2024 Cholesterol in HDL [Mass/Vol] 40 mg/dL >40 [facility] Comment on above: National Cholesterol Education Program (NCEP) guidelines:<40 mg/dL: Low HDL-cholesterol (major risk factor for CHD)>= 60 mg/dL: High HDL-cholesterol (negative risk factor for CHD)HDL-cholesterol is affected by a number of factors, e.g. smoking, exercise, hormones, sex and age. Serum or plasma cholesterol measurement (mass/volume)Ordered By: Sal Arceo on 10-02-2024 Cholesterol [Mass/Vol] 234 mg/dL High <201 [facility] Comment on above: Cholesterol level, D esirable <200 mg/dLBorderline high cholesterol 200-239 mg/dLHigh cholesterol >=240 mg/dLRecommendations of the NCEP Adult Treatment Panel for the following risk-cutoff thresholds for the [place] population. Triglycerides measurementOrd ered By: Sal Arceo on 10-02-2024 Triglyceride [Mass/Vol] 125 mg/dL <199 [facility] Comment on above: The drugs N-Acetylcy steine and Metamizole may falsely depress this assay. Normal range: <150 mg/dLBorderline High: 150-199 mg/dLHigh: 200-499 mg/dLVery High: >500 mg/dL Urgent Care Visit Reporton 0 09-03-2024 Urgent Care Visit Report [facility] [address] , [address] [place] [address] OFFICE VISIT Date of Service: 09/03/24 MR#: [id number] Acct: [id number] Name: SAL PADILLA Rep #: [id number] : 1970 Provider: EMILY Stovall Age/Sex: 54/M Location: 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 Normal [facility] Basophil percentageOrdered B y: Dr. Arceo on 08-02-2022 Chloride [Moles/Vol] 106 mmol/L 98-107 [facility] Cholesterol [Mass/Vol] 163 mg/dL <200 [facility] Comment on above: <200 mg/dL Desirable 200-240 mg/dL Borderline >240 mg/dL High Risk Glucose [Mass/Vol] 104 mg/dL 74-106 [facility] Comment on above: Fasting Glucose resu lt from 100 to 125 mg/dL suggests IMPAIRED HOMEOSTASIS per A.D.A. criteria. Potassium [Moles/Vol] 4.4 mmol/L 3.5-5.1 [facility] Sodium [Moles/Vol] 135 mmol/L 136-145 [facility] Triglyceride [Mass/Vol] 153 mg/dL <199 [facility] Comment on above: The drugs N-Acetylcy steine and Metamizole may falsely depress this assay.Serum Triglycerides Reference Interval Normal <150 mg/dL Borderline high 150 - 199 mg/dL High 200 - 499 mg/dL Very High > or = 500 mg/dL Laboratory - Chemistry and C hemistry - challengeOrdered By: Dr. Arceo on 08-02-2022 CO2 [Moles/Vol] 25.0 mmol/L 21.0-32.0 [facility] Urea nitrogen/Creatinine [Mass ratio] 16.3 mg/mg 10-20 [facility] No Panel InformationOrdered By: Dr. Arceo on 08-02-2022 Estimated GFR (MDRD) Amer 120 mL/min >60 [facility] Comment on above: GFR Calc Estimated GFR (MDRD) Non-Af Amer 99 mL/min >60 [facility] Comment on above: Non- GFR Calc Prostate Specific Antigen Screen 0.92 ng/mL 0.00-4.00 [facility] Comment on above: This test was perfor med using the TPSA assay method for theUlmart chemistry system. Values obtained with differentassay methods cannot be used interchangably.When changing PSA assays in the course of monitoring apatient, additional sequential testing should be carriedout to confirm baseline values. Serum or plasma calcium adán urement (mass/volume)Ordered By: Dr. Arceo on 08-02-2022 Calcium [Mass/Vol] 9.3 mg/dL 8.5-10.1 [facility] Serum or plasma cholesterol in HDL measurement (mass/volume)Ordered By: Dr. Arceo on 08-02-2022 Cholesterol in HDL [Mass/Vol] 40 mg/dL >40 [facility] Comment on above: The drugs N-Acetylcy steine and Metamizole may falsely depress this assay. Reference Range HDL <40 mg/dL Low HDL Cholesterol HDL >or= 60 mg/dL High HDL Cholesterol Serum or plasma cholesterol in VLDL measurement (mass/volume)Ordered By: Dr. Arceo on 08-02-2022 Cholesterol in VLDL [Mass/Vol] 31 mg/dL 5-40 [facility] Serum or plasma creatinine m easurement (mass/volume)Ordered By: Dr. Arceo on 08-02-2022 Creatinine [Mass/Vol] 0.86 mg/dL 0.70-1.30 [facility] Comment on above: The validity of the calculated GFR & GFRAA in patients over 70 years has not been determined. Clinical correlation is essential. Serum or plasma low density lipoprotein (LDL) cholesterol measurement (mass/volume)Ordered By: Dr. Arceo on 08-02-2022 Cholesterol in LDL [Mass/Vol] 92 mg/dL 0-130 [facility] Serum or plasma urea nitroge n measurement (mass/volume)Ordered By: Dr. Arceo on 08-02-2022 Urea nitrogen [Mass/Vol] 14 mg/dL 7-18 [facility] Thin prep Papanicolaou smear with manual screeningOrdered By: Dr. Arceo on 08-02-2022 Thin prep Papanicolaou smear with manual screening 4 5-15 [facility] CNOVon 06-08-2022 CNOV Office Visit (ORMIDD ) SAL PADILLA ([id number]) 1970 M Date Time Provider Department 06/08/22 [...] next visit: Yes PCP: Sal Arceo MD [address] [place] [id number] FELLOW / RESIDENT: No fellow or resident assisted in this office visit. 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 - atorvastatin (L (more content not included)... Normal [facility] XR ANKLE 3V AP/LAT/OBL RTon 06-08-2022 XR [...] REMOTE POSTTRAUMATIC, MILD DEGENERATIVE AND POSTSURGICAL CHANGES Content Assistant: JACQUIE Transcribe Date/Time: Jun 08 2022 10:12A Dictated by : CHARLENE SHEFFIELD MD This examination was interpreted and the report reviewed and electronically signed by: CHARLENE SHEFFIELD MD on Jun 08 2022 10:16AM EST [id number] Normal [facility] XR Ankle - right AP and Late ral and obliqueon 06-08-2022 IMPRESSION: REMOTE POSTTRAUMATIC, MILD DEGENERATIVE AND POSTSURGICAL CHANGES Content Assistant: JACQUIE Transcribe Date/Time: Jun 08 2022 10:12A Dictated by : CHARLENE SHEFFIELD MD This examination was interpreted and the report reviewed and electronically signed by: CHARLENE SHEFFIELD MD on Jun 08 2022 10:16AM [facility] DIVISION OF RADIOLOGY [...] seen. Pes cavus. DIVISION OF RADIOLOGY Provider, [facility] - 06/08/2022 * * *Final Report* * [...] REMOTE POSTTRAUMATIC, MILD DEGENERATIVE AND POSTSURGICAL CHANGES Content Assistant: JACQUIE Transcribe Date/Time: Jun 08 2022 10:12A Dictated by : CHARLENE SHEFFIELD MD This examination was interpreted and the report reviewed and electronically signed by: CHARLENE SHEFFIELD MD on Jun 08 2022 10:16AM EST [facility] Radiology Study observation (narrative) [facility] XR Ankle - right AP and Late ral and obliqueOrdered By: Ccf Provider on 06-08-2022 [facility] CNOVon 03-06-2022 CNOV Office Visit (ORMIDD ) SAL PDAILLA ([id number]) 1970 M Date Time Provider Department 03/06/22 [...] next visit: Yes PCP: Sal Arceo MD [address] [place] [id number] FELLOW / RESIDENT: No fellow or resident assisted in this office visit. 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 Normal [facility] Panel Informationon 03-06 Radiology Study observation (narrative) [facility] XR ANKLE 3V AP/LAT/OBL RTon 03-06-2022 XR [...] significant abnormality. --- IMPRESSION: POSTOPERATIVE FINDINGS DESCRIBED Content Assistant: JACQUIE Transcribe Date/Time: Mar 06 2022 10:09A Dictated by : EMMANUEL ELIZABETH MD This examination was interpreted and the report reviewed and electronically signed by: EMMANUEL ELIZABETH MD on Mar 06 2022 10:10AM EST [id number] N Normal [facility] XR Ankle - right AP and Late ral and obliqueon 03-06-2022 IMPRESSION: POSTOPERATIVE FINDINGS DESCRIBED Content Assistant: [facility] Transcribe Date/Time: Mar 06 2022 10:09A [...] significant abnormality. --- DIVISION OF RADIOLOGY Provider, [facility] - 03/06/2022 * * *Final Report* [...] abnormality. --- IMPRESSION IMPRESSION: POSTOPERATIVE FINDINGS DESCRIBED Content Assistant: JACQUIE Transcribe Date/Time: Mar 06 2022 10:09A Dictated by : EMMANUEL ELIZABETH MD This examination was interpreted and the report reviewed and electronically signed by: EMMANUEL ELIZABETH MD on Mar 06 2022 10:10AM EST [facility] XR Ankle - right AP and Late ral and obliqueOrdered By: Ccf Provider on 03-06-2022 [facility] XR FOOT 3V AP/LAT/OBL RTon 1 05-06-2021 [...] significant abnormality. --- IMPRESSION: POSTOPERATIVE FINDINGS DESCRIBED Content Assistant: [facility] Transcribe Date/Time: Mar 06 2022 10:45A Dictated by : EMMANUEL ELIZABETH MD This examination was interpreted and the report reviewed and electronically signed by: EMMANUEL ELIZABETH MD on Mar 06 2022 10:46AM EST [id number] N Normal [facility] XR Foot - right AP and Later al and obliqueon 03-06-2022 IMPRESSION: POSTOPERATIVE FINDINGS DESCRIBED Content Assistant: JACQUIE Transcribe Date/Time: Mar 06 2022 10:45A [...] significant abnormality. --- DIVISION OF RADIOLOGY Provider, [facility] Adrian [facility] - 03/06/2022 * * *Final Report* * [...] abnormality. --- IMPRESSION IMPRESSION: POSTOPERATIVE FINDINGS DESCRIBED Content Assistant: JACQUIE Transcribe Date/Time: Mar 06 2022 10:45A Dictated by : EMMANUEL ELIZABETH MD This examination was interpreted and the report reviewed and electronically signed by: EMMANUEL ELIZABETH MD on Mar 06 2022 10:46AM EST [facility] CNOVon 01-05-2022 CNOV Office Visit (ORMIDD ) SAL PADILLA ([id number]) 1970 M Date Time Provider Department 01/05/22 [...] weeks X-Ray's at next visit: Yes PCP: [place] [place] [address] FELLOW / RESIDENT: No fellow or resident assisted in this office visit. Milla Soto MD Referring Provider: MILLA SOTO [[id number]] Allergies As of Date: 01/05/2022 (No Known Allergies) Date Reviewed: 01/05/2022 Reviewed by: Shelby Covington Ma - Fully Assessed Reason for Visit: Follow Up [171] Primary Visit Diagnosis:Right ankle pain, unspecified chronicity [M25.571] Order(s):XR FOOT GENERAL 3V AP/LAT/OBL RIGHT [[id number]] Order #: [id number] FUTURE CONSULT TO PHYSICAL THERAPY [9032] Order #: [id number] (more content not included)... Normal [facility] XR FOOT 3V AP/LAT/OBL RTon 0 01-05-2022 [...] significant abnormality. --- IMPRESSION: NORMAL POSTOPERATIVE FINDINGS Content Assistant: JACQUIE Transcribe Date/Time: Jan 05 2022 10:51A Dictated by : MARK TALLEY MD This examination was interpreted and the report reviewed and electronically signed by: MARK TALLEY MD on Jan 05 2022 10:53AM EST [id number] N Normal [facility] XR FOOT GENERAL 3V AP/LAT/OB L RIGHTon 01-05-2022 [facility] XR Foot - right AP and Later al and obliqueon 01-05-2022 IMPRESSION: NORMAL POSTOPERATIVE FINDINGS Content Assistant: JACQUIE Transcribe Date/Time: Jan 05 2022 10:51A [...] significant abnormality. --- DIVISION OF RADIOLOGY Provider, [facility] Adrian [facility] - 01/05/2022 * * *Final Report* * [...] abnormality. --- IMPRESSION IMPRESSION: NORMAL POSTOPERATIVE FINDINGS Content Assistant: JACQUIE Transcribe Date/Time: Jan 05 2022 10:51A Dictated by : MARK TALLEY MD This examination was interpreted and the report reviewed and electronically signed by: MARK TALLEY MD on Jan 05 2022 10:53AM EST [facility] Radiology Study observation (narrative) [facility] XR Foot - right AP and Later al and obliqueOrdered By: Ccf Provider on 01-05-2022 [facility] CNOVon 11-24-2021 CNOV Office Visit (ORMIDD ) SAL PADILLA ([id number]) 1970 M Date Time Provider Department 11/24/21 [...] Milla Soto MD Referring Provider: MILLA SOTO [[id number]] Allergies As of Date: 11/24/2021 (No Known [...] MILLA SOTO on 11/24/21 Normal [facility] No Panel Informationon 11-24 IMPRESSION: Postoperative changes with intact hardware. Content Assistant: [facility] Transcribe Date/Time: Nov 24 2021 1:53P Dictated by : BECCA HURT MD This examination was interpreted and the report reviewed and electronically signed by: BECCA HURT MD on Nov 24 2021 1:55PM [facility] DIVISION OF RADIOLOGY Radiology Study observation (narrative) [facility] No Panel InformationOrdered By: Ccf Provider on 11-24-2021 [facility] XR ANKLE 3V AP/LAT/OBL RTon 11-24-2021 XR [...] COMBINED IMPRESSION: Postoperative changes with intact hardware. Content Assistant: JACQUIE Transcribe Date/Time: Nov 24 2021 1:53P Dictated by : BECCA HURT MD This examination was interpreted and the report reviewed and electronically signed by: BECCA HURT MD on Nov 24 2021 1:55PM EST [id number] N Normal [facility] XR Ankle - right AP and Late [...] is unchanged. COMBINED DIVISION OF RADIOLOGY Provider, Darrick Campbell [facility] - 11/24/2021 * * *Final Report* [...] IMPRESSION IMPRESSION: Postoperative changes with intact hardware. Content Assistant: [facility] Transcribe Date/Time: Nov 24 2021 1:53P Dictated by : BECCA HURT MD This examination was interpreted and the report reviewed and electronically signed by: BECCA HURT MD on Nov 24 2021 1:55PM EST [facility] XR FOOT 3V AP/LAT/OBL RTon 0 11-24-2021 [...] COMBINED IMPRESSION: Postoperative changes with intact hardware. Content Assistant: [employer]Up Transcribe Date/Time: Nov 24 2021 1:53P Dictated by : BECCA HURT MD This examination was interpreted and the report reviewed and electronically signed by: BECCA HURT MD on Nov 24 2021 1:55PM EST [id number] N Normal [facility] XR Foot - right AP and Later [...] foot. Pes cavus. Bony alignment is unchanged. [facility] DIVISION OF RADIOLOGY Provider, [facility] - 11/24/2021 * * *Final Report* [...] IMPRESSION IMPRESSION: Postoperative changes with intact hardware. Content Assistant: [facility] Transcribe Date/Time: Nov 24 2021 1:53P Dictated by : BECCA HURT MD This examination was interpreted and the report reviewed and electronically signed by: BECCA HURT MD on Nov 24 2021 1:55PM [facility] 10-28-2021 DEZ Telephone (ORQ) RANDYSAL ([id number]) 1970 M Date Time Provider Department 10/28/21 MILLA SOTO During your visit today, we recorded the following information about you: Jeromy Ray 10/28/2021 2:46 PM Signed Sal is a patient of Dr. Soto. He was seen in office yesterday and was directed to remain on the Vitamin D2 50,000 international unit(s) Prescription. Patient got home and realized he doesn't have much left. He is asking for a refill to be sent in to the [facility] in [facility]. Allergies As of Date: 10/28/2021 (No Known [...] Encounter Status:Closed by OFELIA CLAY on 10/28/21 [facility] CNOVon 10-27-2021 CNOV Office Visit (ORMIDD ) SAL PADILLA ([id number]) 1970 M Date Time Provider Department 10/27/21 11:20 AM MILLA SOTO ORKITTY During your visit today, we recorded the [...] Milla Soto MD Referring Provider: MILLA SOTO [[id number]] Allergies As of Date: 10/27/2021 (No Known [...] Encounter Status:Closed by MILLA SOTO on 10/27/21 Normal [facility] No Panel Informationon 10-27 IMPRESSION: POSTSURGICAL CHANGES WITH NO APPARENT COMPLICATION Content Assistant: JACQUIE Transcribe Date/Time: Oct 27 2021 1:17P Dictated by : CHARLENE SHEFFIELD MD This examination was interpreted and the report reviewed and electronically signed by: CHARLENE SHEFFIELD MD on Oct 27 2021 1:22PM EST ZZZ_DO_NOT_USE _DIVISION OF RADIOLOGY Radiology Study observation (narrative) [facility] No Panel InformationOrdered By: Ccf Provider on 10-27-2021 [facility] XR ANKLE 3V AP/LAT/OBL RTon 10-27-2021 XR [...] IMPRESSION: POSTSURGICAL CHANGES WITH NO APPARENT COMPLICATION Content Assistant: [facility] Transcribe Date/Time: Oct 27 2021 1:17P Dictated by : CHARLENE SHEFFIELD MD This examination was interpreted and the report reviewed and electronically signed by: CHARLENE SHEFFIELD MD on Oct 27 2021 1:22PM EST [id number] N Normal [facility] XR Ankle - right AP and Late [...] the forefoot. LenchoZZ_DO_NOT_USE _DIVISION OF RADIOLOGY Provider, [facility] - 10/27/2021 * * *Final Report* * [...] IMPRESSION: POSTSURGICAL CHANGES WITH NO APPARENT COMPLICATION Content Assistant: [facility] Transcribe Date/Time: Oct 27 2021 1:17P Dictated by : CHARLENE SHEFFIELD MD This examination was interpreted and the report reviewed and electronically signed by: CHARLENE SHEFFIELD MD on Oct 27 2021 1:22PM [facility] XR FOOT 3V AP/LAT/OBL RTon 0 10-27-2021 [...] IMPRESSION: POSTSURGICAL CHANGES WITH NO APPARENT COMPLICATION Content Assistant: JACQUIE Transcribe Date/Time: Oct 27 2021 1:17P Dictated by : CHARLENE SHEFFIELD MD This examination was interpreted and the report reviewed and electronically signed by: CHARLENE SHEFFIELD MD on Oct 27 2021 1:22PM EST [id number] N Normal [facility] XR Foot - right AP and Later [...] the forefoot. ZZZ_DO_NOT_USE _DIVISION OF RADIOLOGY Provider, [facility] - 10/27/2021 * * *Final Report* [...] IMPRESSION: POSTSURGICAL CHANGES WITH NO APPARENT COMPLICATION Content Assistant: [facility] Transcribe Date/Time: Oct 27 2021 1:17P Dictated by : CHARLENE SHEFFIELD MD This examination was interpreted and the report reviewed and electronically signed by: CHARLENE SHEFFIELD MD on Oct 27 2021 1:22PM [facility] CNOVon 10-13-2021 CNOV Office Visit (ORMIDD ) SAL PADILLA ([id number]) 1970 M Date Time Provider Department 10/13/21 11:20 AM MILLA SOTO ORKITTY During your visit today, we recorded the following information about you: Mlila Soto MD 10/13/2021 11:47 AM Signed Incision CDI Mild swelling Sutures removed SLNWBC FU 2 weeks with XR Milla Soto MD Referring Provider: MILLA SOTO [[id number]] Allergies As of Date: 10/13/2021 (No Known Allergies) Date Reviewed: 09/27/2021 Reviewed by: Ofelia Clay PA-C - Fully Assessed Primary Visit Diagnosis:Acquired cavovarus deformity of foot, 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] Order(s):XR FOOT GENERAL 3V AP/LAT/OBL RIGHT [[id number]] Order #: [id number] FUTURE XR ANKLE GENERAL 3V AP/LAT/OBL RIGHT [[id number]] Order #: [id number] FUTURE Prescriptions as of 10/13/2021 - acetaminophen [...] Encounter Status:Closed by MILLA SOTO on 10/13/21 [facility] 09-30-2021 [facility] Telephone (ORQ) SAL PADILLA ([id number]) 1970 M Date Time Provider Department 09/30/21 [...] Encounter Status:Closed by JEROMY BELL on 09/30/21 [facility] CNOVon 09-27-2021 CNOV Office Visit (ORFTMN ) SAL PADILLA ([id number]) 1970 M Date Time Provider Department 09/27/21 2:40 PM OFELIA CLAY During your visit today, we recorded the following information about you: COLE Coker 10/05/2021 11:18 AM Signed PT ASSESSMENT - CASTING ROOM Sal presents for Application of cast. Applied short cast: to Right foot Patient has been instructed in Care of cast.. Veronika COLE Wilhelm Beeper: [id number] Ofelia Clay PA-C 09/27/2021 5:32 PM Signed Milla Soto [phone] [facility] [id number] Specialty Problems Ortho Problems Right ankle pain [...] which included preparing to see the patient, [id number] patient care, completing clinical documentation, obtaining and/or [...] Ofelia Clay PA-C Referring Provider: MILLA SOTO [[id number]] Allergies As of Date: 09/27/2021 (No Known [...] (more content not included)... Normal [facility] Basic metabolic 2000 panelon 09-22-2021 Anion gap [Moles/Vol] 10 mmol/L Normal 9-18 [facility] Comment on above: Order Comment: Speci men Type: BLOOD SPECIMENOrdering Facility: [facility] Address: [address] [place] [address] Performed By: #### 2 4321-2 ####[facility] LABCLIA [id number] [place] [address] [place] Calcium [Mass/Vol] 9.5 mg/dL Normal 8.5-10.2 [facility] Comment on above: Order Comment: Speci men Type: BLOOD SPECIMENOrdering Facility: [facility] Address: [address] [place] [address] Performed By: #### 2 4321-2 ####[facility] LABCLIA [id number] [place] [address] [place] Chloride [Moles/Vol] 102 mmol/L Normal 97-105 [facility] Comment on above: Order Comment: Speci men Type: BLOOD SPECIMENOrdering Facility: [facility] Address: [address] [place], [place] [address] Performed By: #### 2 4321-2 ####[facility] LABCLIA [id number] [place] [address] [place] CO2 [Moles/Vol] 25 mmol/L Normal 22-30 [facility] Comment on above: Order Comment: Speci men Type: BLOOD SPECIMENOrdering Facility: [facility] Address: [address] [place], [place] [address] Performed By: #### 2 4321-2 ####[facility] LABCLIA [id number] [place] [address] [place] Creatinine [Mass/Vol] 0.84 mg/dL Normal 0.73-1.22 [facility] Comment on above: Order Comment: Gopal sheldon Type: BLOOD SPECIMENOrdering Facility: [facility] Address: [address] [id number] Performed By: #### 2 4321-2 ####[facility] LABCLIA [id number] [place] [address] [place] ESTIMATED GLOMERULAR FILTRATION RATE 104 mL/min/1.73m??? Normal >=60 [facility] Comment on above: Order Comment: Speckarli men Type: BLOOD SPECIMENOrdering Facility: [facility] Address: [address] [place] [address] Result Comment: Nell mated Glomerular Filtration Rate [...] actual GFR. Performed By: #### 2 4321-2 ####[facility] LABCLIA [id number] [place] [address] [place] Glucose [Mass/Vol] 101 mg/dL High 74-99 [facility] Comment on above: Order Comment: Gopal chung Type: BLOOD SPECIMENOrdering Facility: [facility] Address: [address] [place] [address] Result Comment: The [place] [employer] (ADA) provides guidance for cutoff [...] Standards of Medical Care in Diabetes 2016, [place] [employer]. Diabetes Care. 2016.39(Suppl 1). Performed By: #### 2 4321-2 ####[facility] LABCLIA [id number] [place] [address] [place] Potassium [Moles/Vol] 3.7 mmol/L Normal 3.7-5.1 [facility] Comment on above: Order Comment: Speci men Type: BLOOD SPECIMENOrdering Facility: [facility] Address: [address] [place] [address] Performed By: #### 2 4321-2 ####[facility] LABCLIA [id number] [place] [address] [place] Sodium [Moles/Vol] 137 mmol/L Normal 136-144 [facility] Comment on above: Order Comment: Speci men Type: BLOOD SPECIMENOrdering Facility: [facility] Address: [address] [place] [address] Performed By: #### 2 4321-2 ####[facility] LABCLIA [id number] [place] [address] [place] Urea nitrogen [Mass/Vol] 10 mg/dL Normal 9-24 [facility] Comment on above: Order Comment: Speci men Type: BLOOD SPECIMENOrdering Facility: [facility] Address: [address] [place] [address] Performed By: #### 2 4321-2 ####[facility] LABCLIA [id number] [place] [address] [place] CBC panel Auto (Bld)on 09-22 Erythrocyte distribution width (RBC) [Ratio] 13.5 % Normal 11.5-15.0 [facility] Comment on above: Order Comment: Speci men Type: BLOOD SPECIMENOrdering Facility: [facility] Address: [address] [place] [address] Performed By: #### 5 8410-2 ####[facility] LABCLIA [id number] [place] [address] [place] Hematocrit (Bld) [Volume fraction] 45.0 % Normal 39.0-51.0 [facility] Comment on above: Order Comment: Speci men Type: BLOOD SPECIMENOrdering Facility: [facility] Address: [address] [place] [address] Performed By: #### 5 8410-2 ####[facility] LABIA [id number] [place] [address] [place] Hemoglobin (Bld) [Mass/Vol] 14.8 g/dL Normal 13.0-17.0 [facility] Comment on above: Order Comment: Speci men Type: BLOOD SPECIMENOrdering Facility: [facility] Address: [address] [place] [address] Performed By: #### 5 8410-2 ####[facility] LABIA [id number] [address] STATES OF [facility] MCH (RBC) [Entitic mass] 28.4 pg Normal 26.0-34.0 [facility] Comment on above: Order Comment: Speci men Type: BLOOD SPECIMENOrdering Facility: [facility] Address: [address] [place] [address] Performed By: #### 5 8410-2 ####[facility] LABIA [id number] [place] [address] [place] MCHC (RBC) [Mass/Vol] 32.9 g/dL Normal 30.5-36.0 [facility] Comment on above: Order Comment: Speci men Type: BLOOD SPECIMENOrdering Facility: [facility] Address: [address] [place], [place] [address] Performed By: #### 5 8410-2 ####[facility] LABIA [id number] [address] [place] MCV (RBC) [Entitic vol] 86.4 fL Normal 80.0-100.0 [facility] Comment on above: Order Comment: Speci men Type: BLOOD SPECIMENOrdering Facility: [facility] Address: [address] [place], [place] [address] Performed By: #### 5 8410-2 ####[facility] LABCLIA [id number] [place] [address] [place] Nucleated RBC (Bld) [#/Vol] 10*3/uL Normal <0.01 [facility] Comment on above: Order Comment: Speci men Type: BLOOD SPECIMENOrdering Facility: [facility] Address: [address] [place], [place] [address] Performed By: #### 5 8410-2 ####[facility] LABIA [id number] [place] [address] [place] Platelet mean volume (Bld) [Entitic vol] 10.6 fL Normal 9.0-12.7 [facility] Comment on above: Order Comment: Speci men Type: BLOOD SPECIMENOrdering Facility: [facility] Address: [address] [place], [place] [address] Performed By: #### 5 8410-2 ####[facility] LABIA [id number] [place] [address] [place] Platelets (Bld) [#/Vol] 173 10*3/uL Normal 150-400 [facility] Comment on above: Order Comment: Speci men Type: BLOOD SPECIMENOrdering Facility: [facility] Address: [address] [place], [place] [address] Performed By: #### 5 8410-2 ####[facility] LABCLIA [id number] [place] [address] [place] RBC (Bld) [#/Vol] 5.21 10*6/uL Normal 4.20-6.00 [facility] Comment on above: Order Comment: Speci men Type: BLOOD SPECIMENOrdering Facility: [facility] Address: [address] [address] Performed By: #### 5 8410-2 ####[facility] LABIA [id number] [place] [address] [place] WBC (Bld) [#/Vol] 10.28 10*3/uL Normal 3.70-11.00 [facility] Comment on above: Order Comment: Speci men Type: BLOOD SPECIMENOrdering Facility: [facility] Address: [address] [address] Performed By: #### 5 8410-2 ####[facility] LABIA [id number] [address] [place] CNPIlene 09-22-2021 [facility] Telephone (BARB) SAL PADILLA ([id number]) 1970 M Date Time Provider Department 09/22/21 SIVA MCDERMOTT During your visit today, we recorded the following information about you: Siva Mcdermott PA-C 09/22/2021 12:44 PM Signed DOS: 09/20/2021 Type of Surgery: R subtalar arthrodesis and ankle ligament repair Surgeon : Charles Catheter site: Popliteal PNC Solution: Ropivacaine 0.2% Rates: Phone number: [phone] (pt), (Qing - mom) Discharge date: 09/22/2021 [...] PNC Solution: Ropivacaine 0.2% Rates: Phone number: [phone] (pt), (Qing - mom) Discharge date: 09/22/202109/27 [...] site: Popliteal PNC Solution:?Ropivacaine 0.2% Rates:? Phone number:?[phone] (pt), (Qing - mom) Discharge date:?09/22/2021 1000- call placed to pt at this time with no answer. Maggi Philippe RN 09/29/2021 12:44 PM Addendum DOS:?09/20/2021? Type of Surgery:?R subtalar arthrodesis and ankle ligament repair Surgeon :?Charles Catheter site: Popliteal PNC Solution:?Ropivacaine 0.2% Rates:? 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 Normal [facility] THERAPY NTon 09-22-2021 THERAPY NT HNO ID: [id number] Author: Balta Mahmood PT Service: Physical Therapy Author Type: Physical Therapist Type: Therapy (PT/OT/Speech/Resp) Filed: 09/22/2021 8:57 AM Note Text: Physical Therapy Treatment SERVICE DATE: 09/22/2021 SERVICE TIME: 829 to 841 ROOM: [place] [address] Recommended Discharge Disposition: Home Recommended Discharge Disposition [...] ess on feet Interventions Provided: Therapeutic Activity (50144) Therapeutic Activity (29996) Treatment Minutes: 12 $ Therapeutic Activity (11344) Billed Units: 1 unit Training AND education provided in: Anatomy an (more content not included)... Normal [facility] CONSULT PROGon 09-21-2021 CONSULT PROG HNO ID: [id number] Author: Siva Mcdermott PA-C Service: Pain Management Author Type: Physician User Interface Engineer Type: Consult Progress Note Filed: 09/21/2021 9:04 AM Note Text: APS POST-OPERATIVE PROGRESS NOTE SERVICE DATE: 09/21/2021 : 1970 SERVICE TIME: 08am SURGERY DATE: 09/20/2021 PRIMARY SERVICE: Orthopedics Subjective [...] IV Dilaudid 0.4mg IV q4h PRN ROS MILL TENDER WASHING: Negative for headaches, negative for seizures, negative [...] (more content not included)... 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 Drinking and using IS. [id number] Silvia This note was completed by: Silvia Arguello 1909: Ortho textile converter [id number] was repaged about same. Await return page to discuss HR and O2 needs. 1912: spoke to ortho resident textile converter, no new orders / concerns at this time. Will continue monitoring and encourage mobility, hydration PO and IS use aggressively. Normal [facility] THERAPY NTon 09-21-2021 THERAPY NT HNO ID: [id number] Author: Michael Tilley, OT/L Service: Occupational Therapy Author Type: Occupational Therapist Type: Therapy (PT/OT/Speech/Resp) Filed: 09/21/2021 9:57 AM Note Text: Occupational Therapy Evaluation SERVICE DATE: 09/21/2021 SERVICE TIME: 855 to 937 ROOM: [place] [address] Recommended Discharge Disposition: Home Recommended Discharge Disposition Comments: with physical assist PRN for safety. Anticipated Discharge Needs: Physical Assist at Home;Supervision at Home Physical Assist at Home for: Transfers;Ambulation; Cleaning;Laundry;Meal s;Stairs;Safety;Self Care;Shopping;Transpo rtation Supervision at Home due to: (recent sx) Recommended Discharge Equipment: To Be Determined (May benefit from business account leader, sock aide, LH shoe horn, and/or BSC) [...] living (ADL);Muscle Weakness (generalized) Interventions Provided: Evaluation;Self Fpc Management (39090) $ Evaluation-Low (23782) Billed Units: 1 unit Self Fpc Management (58407) Treatment Minutes: 23 $ Self Fpc Management (90256) Billed Units: 2 units Training AND education provided in: Adaptive equipment / DME, Activity adaption / compensatory strategies, Bed mobility, Benefits of in-hospital mobility, Discharge planning, Functional mobility involving ADLs, Lower extremity bathing, Lower ex (more content not included)... Normal [facility] THERAPY NT HNO ID: [id number] Author: Balta Mahmood PT Service: Physical Therapy Author Type: Physical Therapist Type: Therapy (PT/OT/Speech/Resp) Filed: 09/21/2021 9:11 AM Note Text: Physical Therapy Evaluation SERVICE DATE: 09/21/2021 SERVICE TIME: 801 to 854 ROOM: [place] [address] Recommended Discharge Disposition: Home Recommended Discharge Disposition [...] balance while picking up object off floor JH-HLM: 7: Walk 25 feet or more Learning/Educational [...] on feet Interventions Provided: Evaluation;Therapeuti c Activity (63285);Gait Training (88587) $ Evaluation-Low (24715) Billed Units: 1 unit Therapeutic Activity (92997) Treatment Minutes: 23 $ Therapeutic Activity (57689) Billed Units: 2 units Gait Training (43409) Treatment Minutes: 15 $ Gait Training (60337) Billed Units: 1 unit Training A (more content not included)... Normal [facility] ANES POSTPROC EVALon 022 ANES POSTPROC EVAL HNO ID: [id number] Author: Ricco Melo MD Service: ? Author Type: Anesthesiologist Type: Anesthesia Postprocedure Evaluation Filed: 09/20/2021 1:06 PM Note Text: POST ANESTHESIA EVALUATION NOTE : 1970 Procedure Summary Date: 09/20/21 Room / Location: [address] [facility] Anesthesia Start: 727 Anesthesia Stop: [...] September 20, 2021 TIME: 1:03 PM CSN: [id number] Normal [facility] ANES PRE-OPon 09-20-2021 ANES PRE-OP HNO ID: [id number] Author: Gucci Camacho MD Service: ? Author Type: Anesthesiologist Type: Anesthesia Preprocedure Evaluation Filed: 09/20/2021 7:54 AM Note Text: ANESTHESIOLOGY DAY OF SURGERY NOTE : 1970 Procedure Information Anesthesia Start Date/Time: 09/20/21727 Procedures: ARTHRODESIS SUBTALAR (Right Ankle) REPAIR ANKLE LIGAMENT SECONDARY DISRUPTED, COLLATERAL (Right Ankle) GRAFT BONE ILIAC CREST (Right Pelvis) LENGTHENING TENDON EXTREMITY LOWER (Right Ankle) Location: [facility] Surgeons: Milla Soto MD [...] September 20, 2021 TIME: 7:54 AM CSN: [id number] Normal [facility] BRIEF OP NOTon 09-20-2021 BRIEF OP NOT HNO ID: [id number] Author: Adrian Han MD Service: Orthopaedic Surgery Author Type: Fellow Type: Brief Op Note Filed: 09/20/2021 12:22 PM Note Text: BRIEF OPERATIVE / PROCEDURE NOTE LOG ID: [id number] SURGERY/PROCEDURE DATE: 09/20/2021 INCISION/PROCEDURE START TIME: 8:30 AM INCISION CLOSE/PROCEDURE END TIME: SURGEON(S)/PROCEDURAL IST(S) AND EMPLOYEE WELLNESS/FITNESS COORDINATOR(S): Surgeon(s) and Role: * Milla Soto MD - Primary * Adrian Han MD - Fellow Brine Process Operator: Michael Souza SA SURGERY/PROCEDURE(S): Right foot cavus repair ANESTHESIA: General FINDINGS: Right foot cavus ESTIMATED BLOOD LOSS: 30 mls SPECIMENS: None COMPLICATIONS: None . PRE-OP/PRE-PROCEDURE DIAGNOSIS: Right foot cavus POST-OP/POST-PROCEDUR E DIAGNOSIS: Same as Preop SIGNATURE: Adrian Han MD PATIENT NAME: Sal Padilla DATE: September 20, 2021 TIME: 12:21 PM Normal [facility] CNDSon 09-20-2021 [facility] HNO ID: [id number] Author: Yun Cross MD Service: Orthopaedic Surgery [...] The patient was electively admitted to the [facility] on 09/20/2021. Surgery was scheduled and on [...] Department Center 09/27/2021 2:40 PM [facility] Discharge Medications: Current Discharge Medication List START [...] 2021 TIME (more content not included)... 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 Normal [facility] NURSING PROGon 09-20-2021 NURSING PROG HNO ID: [id number] Author: Eunice Foreman RN Service: ? Author Type: Registered Nurse Type: Nursing Progress Note Filed: 09/20/2021 9:55 PM Note Text: Pt has not voided since catheter removal at 1300. Bladder scanned for 327 ml in bladder. Ortho paged to clarify is pt should be straigh cathd or have a galvan inserted. Normal [facility] OPERATIVE NOon 09-20-2021 OPERATIVE NO HNO ID: [id number] Author: Milla Soto MD Service: Orthopaedic Surgery Author Type: Physician Type: Operative Report Filed: 09/20/2021 1:20 PM Note Text: [place] [address] [place] ?? OPERATIVE REPORT ?? NAME:?NORA PADILLA ?? CLINIC#:?[id number] ?? DATE:?09/20/2021?AG E:?53 ? SURGEON: Milla Soto M.D. ?? EMPLOYEE WELLNESS/FITNESS COORDINATOR:???Adrian Han,?Bj.D.? EMPLOYEE WELLNESS/FITNESS COORDINATOR: ? I was present for and participated [...] previously underwent failed cavovarus foot reconstruction at [facility]. He now has residual subtalar joint [...] that the achilles was tight. Therefore a [place] achilles tendon lengthening was performed.?Additional ly the [...] (more content not included)... Normal [facility] XR ANKLE 3V AP/LAT/OBL RTon 09-20-2021 XR [...] refer to surgical note for further details. Content Assistant: PSCB Transcribe Date/Time: Sep 20 2021 11:49A Dictated by : VU GARY MD This examination was interpreted and the report reviewed and electronically signed by: VU GARY MD on Sep 20 2021 11:50AM EST [id number] Normal [facility] Basic metabolic 2000 panelon 09-09-2021 Anion gap [Moles/Vol] 10 mmol/L Normal 9-18 [facility] Comment on above: Order Comment: Speci men Type: BLOOD SPECIMENOrdering Facility: [facility] Address: [address] [place] [address] Performed By: #### 2 4321-2 ####[facility] MILLTOWNCLIA [id number] [place] [address] [place] Calcium [Mass/Vol] 9.5 mg/dL Normal 8.5-10.2 [facility] Comment on above: Order Comment: Speci men Type: BLOOD SPECIMENOrdering Facility: [facility] Address: [address] [place] [address] Performed By: #### 2 4321-2 ####[facility]ODROWROCKINGH[facility] MEM[facility] HOSPITALWORLIA [id number] [place] [address] [place] Chloride [Moles/Vol] 104 mmol/L Normal 97-105 [facility] Comment on above: Order Comment: Speci men Type: BLOOD SPECIMENOrdering Facility: [facility] Address: [address] [place] [address] Performed By: #### 2 4321-2 ####[facility] MILLWNCLIA [id number] [place] [address] [place] CO2 [Moles/Vol] 23 mmol/L Normal 22-30 [facility] Comment on above: Order Comment: Speci men Type: BLOOD SPECIMENOrdering Facility: [facility] Address: [address] [place] [address] Performed By: #### 2 4321-2 ####[facility] MILLTOWNCLIA [id number] [place] [address] [place] Creatinine [Mass/Vol] 0.88 mg/dL Normal 0.73-1.22 [facility] Comment on above: Order Comment: Speci men Type: BLOOD SPECIMENOrdering Facility: [facility] Address: [address] [place] [address] Performed By: #### 2 4321-2 ####[facility] [id number] [place] [address] [place] ESTIMATED GLOMERULAR FILTRATION RATE 103 mL/min/1.73m??? Normal >=60 [facility] Comment on above: Order Comment: Gopal chung Type: BLOOD SPECIMENOrdering Facility: [facility] Address: [address] [place] [address] Result Comment: Nell mated Glomerular Filtration Rate [...] actual GFR. Performed By: #### 2 4321-2 ####[facility] [id number] [place] [address] [place] Glucose [Mass/Vol] 104 mg/dL High 74-99 [facility] Comment on above: Order Comment: Gopal chung Type: BLOOD SPECIMENOrdering Facility: [facility] Address: [address] [place] [address] Result Comment: The [place] [employer] (ADA) provides guidance for cutoff [...] Standards of Medical Care in Diabetes 2016, [place] [employer]. Diabetes Care. 2016.39(Suppl 1). Performed By: #### 2 4321-2 ####[facility] MILLWNCLIA [id number] [place] [address] [place] Potassium [Moles/Vol] 3.8 mmol/L Normal 3.7-5.1 [facility] Comment on above: Order Comment: Speci men Type: BLOOD SPECIMENOrdering Facility: [facility] Address: [address] [place] [address] Performed By: #### 2 4321-2 ####[facility]OSPITALLIJazzy [id number] [place] [address] [place] Sodium [Moles/Vol] 137 mmol/L Normal 136-144 [facility] Comment on above: Order Comment: Speci men Type: BLOOD SPECIMENOrdering Facility: [facility] Address: [address] [place] [address] Performed By: #### 2 4321-2 ####[facility] HOSPITALJazzy [id number] [place] [address] [place] Urea nitrogen [Mass/Vol] 16 mg/dL Normal 9-24 [facility] Comment on above: Order Comment: Speci men Type: BLOOD SPECIMENOrdering Facility: [facility] Address: [address] [place] [address] Performed By: #### 2 4321-2 ####[facility] HOSPITALJazzy [id number] [place] [address] [place] CBC W Auto Differential pane l (Bld)on 09-09-2021 Basophils (Bld) [#/Vol] 0.06 10*3/uL Normal <0.11 [facility] Comment on above: Order Comment: Speci men Type: BLOOD SPECIMENOrdering Facility: [facility] Address: [address] [place] [address] Performed By: #### 5 7021-8 ####[facility] HOSPITALNCLIA [id number] [place] [address] [place] Basophils/100 WBC (Bld) 0.9 % Normal [facility] Comment on above: Order Comment: Speci men Type: BLOOD SPECIMENOrdering Facility: [facility] Address: [address] [place] [address] Performed By: #### 5 7021-8 ####[facility] FERNANDOWDIANELIA [id number] [place] [address] [place] Differential cell count method Nom (Bld) Auto Normal [facility] Comment on above: Order Comment: Speci men Type: BLOOD SPECIMENOrdering Facility: [facility] Address: [address] [place] [address] Performed By: #### 5 7021-8 ####[facility] FERNANDOBLACKBURNDIANELIA [id number] [place] [address] [place] Eosinophils (Bld) [#/Vol] 0.20 10*3/uL Normal <0.46 [facility] Comment on above: Order Comment: Speci men Type: BLOOD SPECIMENOrdering Facility: [facility] Address: [address] [place] [address] Performed By: #### 5 7021-8 ####[facility] FERNANDOBLACKBURNDIANELIA [id number] [place] [address] [place] Eosinophils/100 WBC (Bld) 3.0 % Normal [facility] Comment on above: Order Comment: Speci men Type: BLOOD SPECIMENOrdering Facility: [facility] Address: [address] [place] [address] Performed By: #### 5 7021-8 ####[facility] HOSPITALNCLIA [id number] [place] [address] [place] Erythrocyte distribution width (RBC) [Ratio] 13.2 % Normal 11.5-15.0 [facility] Comment on above: Order Comment: Speci men Type: BLOOD SPECIMENOrdering Facility: [facility] Address: [address] [place] [address] Performed By: #### 5 7021-8 ####[facility] HOSPITALNCLIA [id number] [place] [address] [place] Hematocrit (Bld) [Volume fraction] 45.3 % Normal 39.0-51.0 [facility] Comment on above: Order Comment: Speci men Type: BLOOD SPECIMENOrdering Facility: [facility] Address: [address] [place] [address] Performed By: #### 5 7021-8 ####[facility] HOSPITALNCA [id number] [place] [address] [place] Hemoglobin (Bld) [Mass/Vol] 15.6 g/dL Normal 13.0-17.0 [facility] Comment on above: Order Comment: Speci men Type: BLOOD SPECIMENOrdering Facility: [facility] Address: [address] [place] [address] Performed By: #### 5 7021-8 ####[facility]OSPITALERVINA [id number] [place] [address] [place] IMMATURE GRAN % 0.4 % Normal [facility] Comment on above: Order Comment: Speci men Type: BLOOD SPECIMENOrdering Facility: [facility] Address: [address] [place] [address] Performed By: #### 5 7021-8 ####[facility] HOSPITALNCLIA [id number] [place] [address] [place] IMMATURE GRAN ABS 0.03 k/uL Normal <0.10 [facility] Comment on above: Order Comment: Speci men Type: BLOOD SPECIMENOrdering Facility: [facility] Address: [address] [place] [address] Performed By: #### 5 7021-8 ####[facility] MILLTOWNCLIA [id number] [place] [address] [place] Lymphocytes (Bld) [#/Vol] 2.41 10*3/uL Normal 1.00-4.00 [facility] Comment on above: Order Comment: Speci men Type: BLOOD SPECIMENOrdering Facility: [facility] Address: [address] [place] [address] Performed By: #### 5 7021-8 ####[facility] HOSPITALWNCLIA [id number] [place] [address] [place] Lymphocytes/100 WBC (Bld) 35.9 % Normal [facility] Comment on above: Order Comment: Speci men Type: BLOOD SPECIMENOrdering Facility: [facility] Address: [address] [place] [address] Performed By: #### 5 7021-8 ####[facility] HOSPITALNCLIA [id number] [place] [address] [place] MCH (RBC) [Entitic mass] 28.9 pg Normal 26.0-34.0 [facility] Comment on above: Order Comment: Speci men Type: BLOOD SPECIMENOrdering Facility: [facility] Address: [address] [place] [address] Performed By: #### 5 7021-8 ####[facility] MILLWNCLIA [id number] [place] [address] [place] MCHC (RBC) [Mass/Vol] 34.4 g/dL Normal 30.5-36.0 [facility] Comment on above: Order Comment: Speci men Type: BLOOD SPECIMENOrdering Facility: [facility] Address: [address] [place] [address] Performed By: #### 5 7021-8 ####[facility] HOSPITALLIA [id number] [place] [address] [place] MCV (RBC) [Entitic vol] 84.0 fL Normal 80.0-100.0 [facility] Comment on above: Order Comment: Speci men Type: BLOOD SPECIMENOrdering Facility: [facility] Address: [address] [place] [address] Performed By: #### 5 7021-8 ####[facility] [id number] [place] [address] [place] Monocytes (Bld) [#/Vol] 0.66 10*3/uL Normal <0.87 [facility] Comment on above: Order Comment: Speci men Type: BLOOD SPECIMENOrdering Facility: [facility] Address: [address] [place] [address] Performed By: #### 5 7021-8 ####[facility] [id number] [place] [address] [place] Monocytes/100 WBC (Bld) 9.8 % Normal [facility] Comment on above: Order Comment: Speci men Type: BLOOD SPECIMENOrdering Facility: [facility] Address: [address] [place] [address] Performed By: #### 5 7021-8 ####[facility] [id number] [place] [address] [place] Neutrophils (Bld) [#/Vol] 3.36 10*3/uL Normal 1.45-7.50 [facility] Comment on above: Order Comment: Speci men Type: BLOOD SPECIMENOrdering Facility: [facility] Address: [address] [place] [address] Performed By: #### 5 7021-8 ####[facility] [id number] [place] [address] [place] Neutrophils/100 WBC (Bld) 50.0 % Normal [facility] Comment on above: Order Comment: Speci men Type: BLOOD SPECIMENOrdering Facility: [facility] Address: [address] [place] [address] Performed By: #### 5 7021-8 ####[facility] HOSPITALNCSPAN[facility] [id number] [place] [address] [place] Nucleated RBC (Bld) [#/Vol] 10*3/uL Normal <0.01 [facility] Comment on above: Order Comment: Speci men Type: BLOOD SPECIMENOrdering Facility: [facility] Address: [address] [place] [address] Performed By: #### 5 7021-8 ####[facility] [id number] [place] [address] [place] Nucleated RBC/100 WBC (Bld) [Ratio] 0.0 /100 WBC Normal [facility] Comment on above: Order Comment: Speci men Type: BLOOD SPECIMENOrdering Facility: [facility] Address: [address] [place] [address] Performed By: #### 5 7021-8 ####[facility] HOSPITALNCSPAN[facility] [id number] [place] [address] [place] Platelet mean volume (Bld) [Entitic vol] 10.4 fL Normal 9.0-12.7 [facility] Comment on above: Order Comment: Speci men Type: BLOOD SPECIMENOrdering Facility: [facility] Address: [address] [place] [address] Performed By: #### 5 7021-8 ####[facility] HOSPITALNCSPAN[facility] [id number] [place] [address] [place] Platelets (Bld) [#/Vol] 177 10*3/uL Normal 150-400 [facility] Comment on above: Order Comment: Speci men Type: BLOOD SPECIMENOrdering Facility: [facility] Address: [address] [place], [place] [address] Performed By: #### 5 7021-8 ####[facility] HOSPITALNCLIA [id number] [place] [address] [place] RBC (Bld) [#/Vol] 5.39 10*6/uL Normal 4.20-6.00 [facility] Comment on above: Order Comment: Speci men Type: BLOOD SPECIMENOrdering Facility: [facility] Address: [address] [place] [address] Performed By: #### 5 7021-8 ####[facility] HOSPITALNCLIA [id number] [place] [address] [place] WBC (Bld) [#/Vol] 6.72 10*3/uL Normal 3.70-11.00 [facility] Comment on above: Order Comment: Speci men Type: BLOOD SPECIMENOrdering Facility: [facility] Address: [address] [place] [address] Performed By: #### 5 7021-8 ####[facility] HOSPITALNCLIA [id number] [address] [place] CNPIlene 09-09-2021 CNPN Telephone (MNPACC) SAL PADILLA ([id number]) 1970 M Date Time Provider Department [facility]/09[facility] your visit today, we recorded the following information about you: Ofelia Colunga RN 09/09/2021 11:15 AM Signed Spoke directly with patient regarding ordered labs needed for surgery. He stated he was going today to [facility] to have drawn. Allergies As of [...] OFELIA COLUNGA on 09/09/21 Normal [facility] HISTORY PHYSICALon HISTORY PHYSICAL HNO ID: [id number] Author: Nini Borja PA-C Service: ? Author Type: Physician User Interface Engineer Type: HANDP Filed: 09/02/2021 12:06 PM Note Text: PREANESTHESIA CONSULT CLINIC TELEHEALTH VISIT Patient has been identified by name and date of : Yes This is a virtual visit using [employer] video visit. It require patient-provider interaction for [...] fevers. Neuro: No history of TIA's, stroke, MILL TENDER WASHING tumor, impaired sensorium, hemiplegia, paraplegia or quadraplegia. +h/o brain aneurysm 2020 - followed with serial MRIs, resolved on most recent imaging without intervention +h/o vertigo - resolved Respiratory: No history of current cough or dyspnea, or pneumonia in the past 6 weeks. No history of respiratory/pulmonary symptoms or problems. Cardiovascular: No history of HTN requiring medication, no history of angina, CHF, [place], cardiac surgery or stents. Denies rest pain, [...] (more content not included)... Normal [facility] CNPNon 08-26-2021 CNPN Telephone (LUISMN) SAL PADILLA ([id number]) 1970 M Date Time Provider Department 08/26/21 MILLA SOTO During your visit today, we [...] Encounter Status:Closed by QING ALVAREZ on 08/26/21 [facility] CNOVon 08-25-2021 CNOV Office Visit (ORMIDD ) SAL PADILLA ([id number]) 1970 M Date Time Provider Department 08/25/21 [...] Milla Soto MD Referring Provider: MILLA SOTO [[id number]] Allergies As of Date: 08/25/2021 (No Known Allergies) Date Reviewed: 08/25/2021 Reviewed by: Shelby Covington Ma - Fully Assessed Reason for Visit: Follow Up [171] Primary Visit Diagnosis:Acquired cavovarus deformity of foot, 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 Content Assistant: JACQUIE Transcribe Date/Time: Aug 14 2021 10:17A Dictated by : RAAD DUMONT MD This examination was interpreted and the report reviewed and electronically signed by: RAAD DUMONT MD on Aug 14 2021 10:30AM EST [id number] Normal [facility] CNOVon 08-11-2021 CNOV Office Visit (ORMIDD ) SAL PADILLA ([id number]) 1970 M Date Time Provider Department 08/11/21 9:30 AM MILLA SOTO During your visit today, we recorded the following information about you: Weight Height 109.8 kg 1.803 m Milla Soto MD 08/13/2021 2:26 PM Signed Incision CDI Dry dressing changes Partial WB Vit D Fu 2 weeks for sutures, MR review, pick surgery date Milla Soto MD Referring Provider: MILLA SOTO [[id number]] Allergies As of Date: 08/11/2021 (No Known Allergies) Date Reviewed: 08/11/2021 Reviewed by: Verónica Moreland - Fully Assessed Reason for Visit: Follow Up [171] Post Op [174] Primary Visit Diagnosis:Cavovarus deformity of foot [Q66.10] Order(s):PARKING FOR HANDICAPPED [[id number]] Order #: [id number] Prescriptions as of 08/13/2021 - acetaminophen (TYLENOL [...] Encounter Status:Closed by MILLA SOTO on 08/13/21 [facility] ANES POSTPROC EVALon 022 ANES POSTPROC EVAL HNO ID: [id number] Author: Matthew Rodriguez MD Service: Anesthesiology Author Type: Anesthesiologist Type: Anesthesia Postprocedure Evaluation Filed: 08/04/2021 1:03 PM Note Text: POST ANESTHESIA EVALUATION NOTE : 1970 Procedure Summary Date: 08/04/21 Room / Location: [address] Anesthesia Start: 739 Anesthesia Stop: 08 Procedure: REMOVAL HARDWARE FOOT (Right Ankle) Diagnosis: [...] August 04, 2021 TIME: 1:03 PM CSN: [id number] Normal [facility] ANES PRE-OPon 08-04-2021 ANES PRE-OP HNO ID: [id number] Author: Matthew Rodriguez MD Service: Anesthesiology Author Type: Anesthesiologist Type: Anesthesia Preprocedure Evaluation Filed: 08/04/2021 7:02 AM Note Text: ANESTHESIOLOGY DAY OF SURGERY NOTE : 1970 Procedure Information Date/Time: 08/04/21729 Procedure: REMOVAL HARDWARE FOOT (Right Ankle) Location: [address] [facility] Surgeons: Milla Soto MD Estimated body mass [...] and consent discussed: yes. Patient / Responsible [employer] agrees to proceed: yes Patient / Surrogate [...] August 04, 2021 TIME: 7:01 AM CSN: [id number] Normal [facility] BRIEF OP NOTon 08-04-2021 BRIEF OP NOT HNO ID: [id number] Author: Ck Bledsoe MD Service: Orthopaedic Surgery Author Type: Resident Type: Brief Op Note Filed: 08/04/2021 9:00 AM Note Text: BRIEF OP NOTE LOG ID: [id number] Surgery/Procedure Date: 08/04/2021 Incision/Procedure Start Time: 8:22 AM Incision Close/Procedure End Time: 8:41 AM Surgeon(s)/Procedural ist(s) and User Interface Engineer(s): Surgeon(s) and Role: * Milla Soto MD [...] 04, 2021 TIME: 8:59 AM PAGER/CONTACT #: [phone] Normal [facility] HISTORY PHYSICALon HISTORY PHYSICAL HNO ID: [id number] Author: Milla Soto MD Service: Orthopaedic Surgery [...] 2021 TIME: 7:45 AM Normal [facility] OPERATIVE NOon 08-04-2021 OPERATIVE NO HNO ID: [id number] Author: Milla Soto MD Service: Orthopaedic Surgery Author Type: Physician Type: Operative Report Filed: 08/04/2021 9:08 AM Note Text: [place] [address] [place] ?? OPERATIVE REPORT ?? NAME:ReguloRANDY SAL Schaefer ?? CLINIC#:?[id number] ?? AGE:?40 DATE OF PROCEDURE:?08/04/2021 ? ? SURGEON 1: ??Milla Soto M.D. SURGEON 2: ? EMPLOYEE WELLNESS/FITNESS COORDINATOR 1: ?Ck Bledsoe MD EMPLOYEE WELLNESS/FITNESS COORDINATOR 2: ? OPERATION: 1. ?Right foot hardware [...] ?Stable. ?Milla Soto MD Normal [facility] Basophil percentageon 2021 Bilirubin [Mass/Vol] 0.70 mg/dL 0.20-1.00 [facility] Work Phone: Comment on above: For patients on eltr ombopag therapy, use of Dimension [place] TBIL is not recommended. Chloride [Moles/Vol] 105 mmol/L 98-107 [facility] Work Phone: Cholesterol [Mass/Vol] 169 mg/dL <200 [facility] Work Phone: Comment on above: <200 mg/dL Desirable 200-240 mg/dL Borderline >240 mg/dL High Risk Glucose [Mass/Vol] 100 mg/dL 74-106 [facility] Work Phone: Comment on above: Fasting Glucose resu lt from 100 to 125 mg/dL suggests IMPAIRED HOMEOSTASIS per A.D.A. criteria. Potassium [Moles/Vol] 4.0 mmol/L 3.5-5.1 [facility] Work Phone: Protein [Mass/Vol] 7.3 g/dL 6.4-8.2 [facility] Work Phone: Sodium [Moles/Vol] 138 mmol/L 136-145 [facility] Work Phone: Triglyceride [Mass/Vol] 257 mg/dL <199 [facility] Work Phone: Comment on above: The drugs N-Acetylcy steine and Metamizole may falsely depress this assay.Serum Triglycerides Reference Interval Normal <150 mg/dL Borderline high 150 - 199 mg/dL High 200 - 499 mg/dL Very High > or = 500 mg/dL Laboratory - Chemistry and C hemistry - challengeon 08-02-2021 ALP [Catalytic activity/Vol] 94 U/L 45-117 [facility] Work Phone: ALT [Catalytic activity/Vol] 55 U/L 16-61 [facility] Work Phone: CO2 [Moles/Vol] 30.0 mmol/L 21.0-32.0 [facility] Work Phone: Globulin (S) [Mass/Vol] 3.5 g/dL 2.2-4.2 [facility] Work Phone: Urea nitrogen/Creatinine [Mass ratio] 13.9 mg/mg 10-20 [facility] Work Phone: No Panel Informationon 08-02 Estimated GFR (MDRD) Amer 109 mL/min >60 [facility] Work Phone: Comment on above: GFR Calc Estimated GFR (MDRD) Non-Af Amer 90 mL/min >60 [facility] Work Phone: Comment on above: Non- GFR Calc Prostate Specific Antigen Screen 0.81 ng/mL 0.00-4.00 [facility] Work Phone: Comment on above: This test was perfor med using the TPSA assay method for [employer] chemistry system. Values obtained with differentassay methods cannot be used interchangably.When changing PSA assays in the course of monitoring apatient, additional sequential testing should be carriedout to confirm baseline values. Serum or plasma albumin adán urement (mass/volume)on 08-02-2021 Albumin [Mass/Vol] 3.8 g/dL 3.2-5.0 [facility] Work Phone: Serum or plasma albumin/glob ulin mass ratioon 08-02-2021 Albumin/Globulin [Mass ratio] 1.1 {ratio} 0.9-2.4 [facility] Work Phone: Serum or plasma calcium adán urement (mass/volume)on 08-02-2021 Calcium [Mass/Vol] 9.4 mg/dL 8.5-10.1 [facility] Work Phone: Serum or plasma cholesterol in HDL measurement (mass/volume)on 08-02-2021 Cholesterol in HDL [Mass/Vol] 36 mg/dL >40 [facility] Work Phone: Comment on above: The drugs N-Acetylcy steine and Metamizole may falsely depress this assay. Reference Range HDL <40 mg/dL Low HDL Cholesterol HDL >or= 60 mg/dL High HDL Cholesterol Serum or plasma cholesterol in VLDL measurement (mass/volume)on 08-02-2021 Cholesterol in VLDL [Mass/Vol] 51 mg/dL 5-40 [facility] Work Phone: Serum or plasma creatinine m easurement (mass/volume)on 08-02-2021 Creatinine [Mass/Vol] 0.94 mg/dL 0.70-1.30 [facility] Work Phone: Comment on above: The validity of the calculated GFR & GFRAA in patients over 70 years has not been determined. Clinical correlation is essential. Serum or plasma low density lipoprotein (LDL) cholesterol measurement (mass/volume)on 08-02-2021 Cholesterol in LDL [Mass/Vol] 82 mg/dL 0-130 [facility] Work Phone: Serum or plasma urea nitroge n measurement (mass/volume)on 08-02-2021 Urea nitrogen [Mass/Vol] 13 mg/dL 7-18 [facility] Work Phone: Thin prep Papanicolaou smear with manual screeningon 08-02-2021 Thin prep Papanicolaou smear with manual screening 20 U/L 15-37 [facility] Work Phone: Thin prep Papanicolaou smear with manual screening 3 5-15 [facility] Work Phone: HISTORY PHYSICALon 2 HISTORY PHYSICAL HNO ID: [id number] Author: Ana Guillermo PA-C Service: ? Author Type: Physician User Interface Engineer Type: HANDP Filed: 07/29/2021 2:42 PM Note [...] He had foot surgery last December in [place]. He was still having pain in June. [...] Obesity Neuro: No history of TIA's, stroke, MILL TENDER WASHING tumor, impaired sensorium, hemiplegia, paraplegia or quadraplegia. + Hx brain aneurysm 2020 - followed with serial MRIs, resolved on most recent imaging without intervention , +Hx vertigo - resolved Respiratory: No history of current cough or dyspnea, or pneumonia in the past 6 weeks. No history of respiratory/pulmonary symptoms or problems. Cardiovascular: No history of HTN requiring medication, no history of angina, CHF, [place], cardiac surgery or stents. Denies rest pain, [...] (more content not included)... Normal [facility] CNOVon 07-28-2021 CNOV Office Visit (ORMIDD ) SAL PADILLA ([id number]) 1970 M Date Time Provider Department 07/28/21 11:30 AM MILLA SOTO During your visit today, we recorded the following information about you: Weight Height 108.9 kg 1.803 m Milla Soto MD 07/28/2021 2:37 PM Addendum July 28, 2021 HPI: Sal Padilla is a 51 yo male who had foot surgery on right in [place] in December 2020. Reports a broken ankle [...] to c (more content not included)... Normal [facility] No Panel Informationon 07-28 IMPRESSION: POSTSURGICAL AND MILD DEGENERATIVE CHANGES Content Assistant: JACQUIE Transcribe Date/Time: Jul 28 2021 4:57P Dictated by : CHARLENE SHEFFIELD MD This examination was interpreted and the report reviewed and electronically signed by: CHARLENE SHEFFIELD MD on Jul 28 2021 5:03PM EST ZZZ_DO_NOT_USE _DIVISION OF RADIOLOGY Radiology Study observation (narrative) [facility] No Panel InformationOrdered By: Ccf Provider on 07-28-2021 [facility] XR ANKLE 3V AP/LAT/OBL RTon 07-28-2021 XR [...] laterally. IMPRESSION: POSTSURGICAL AND MILD DEGENERATIVE CHANGES Content Assistant: [facility] Transcribe Date/Time: Jul 28 2021 4:57P Dictated by : CHARLENE SHEFFIELD MD This examination was interpreted and the report reviewed and electronically signed by: CHARLENE SHEFFIELD MD on Jul 28 2021 5:03PM EST [id number] Normal [facility] XR Ankle - right AP and Late [...] ankle laterally. LenchoZZ_DO_NOT_USE _DIVISION OF RADIOLOGY Provider, [facility] - 07/28/2021 * * *Final Report* [...] IMPRESSION IMPRESSION: POSTSURGICAL AND MILD DEGENERATIVE CHANGES Content Assistant: [facility] Transcribe Date/Time: Jul 28 2021 4:57P Dictated by : CHARLENE SHEFFIELD MD This examination was interpreted and the report reviewed and electronically signed by: CHARLENE SHEFFIELD MD on Jul 28 2021 5:03PM [facility] XR FOOT 3V AP/LAT/OBL RTon 0 07-28-2021 [...] laterally. IMPRESSION: POSTSURGICAL AND MILD DEGENERATIVE CHANGES Content Assistant: JACQUIE Transcribe Date/Time: Jul 28 2021 4:57P Dictated by : CHARLENE SHEFFIELD MD This examination was interpreted and the report reviewed and electronically signed by: CHARLENE SHEFFIELD MD on Jul 28 2021 5:03PM EST [id number] Normal [facility] XR Foot - right AP and Later [...] ankle laterally. ZZZ_DO_NOT_USE _DIVISION OF RADIOLOGY Provider, [facility] - 07/28/2021 * * *Final Report* [...] IMPRESSION IMPRESSION: POSTSURGICAL AND MILD DEGENERATIVE CHANGES Content Assistant: [facility] Transcribe Date/Time: Jul 28 2021 4:57P Dictated by : CHARLENE SHEFFIELD MD This examination was interpreted and the report reviewed and electronically signed by: CHARLENE SHEFFIELD MD on Jul 28 2021 5:03PM [facility] CT ANGIO BRAINon 06-06-2021 CT ANGIO BRAIN [...] are unremarkable. No major anatomical variations at the [place]. Incidentally, there are 2 left A1 segments. No aneurysm identified at the anterior commuting artery. Anterior, middle and posterior cerebral arteries appear otherwise unremarkable. Intracranial vertebral arteries are unremarkable. Basilar artery is unremarkable. IMPRESSION: No aneurysm or vascular malformation is identified. I personally viewed and interpreted these images and I have reviewed and approved this report. Normal [facility] LIPID PANEL, STANDARDon 05-0 Cholesterol [Mass/Vol] 162 mg/dL Normal <200 [facility] Comment on above: Performed By: #### 7 600 #### [facility] [address], [address] [place] [address] Datastage Developer: John Siddiqui MD Cholesterol in HDL [Mass/Vol] 41 mg/dL Normal > OR = 40 [facility] Comment on above: Performed By: #### 7 600 #### [facility] [address], [address] [place] [address] Datastage Developer: John Siddiqui MD Cholesterol in LDL [Mass/Vol] [...] LDL-C. Sean WILLIAM et al. MARIANA. 2013;310(19): 2035-8803 (http://education.New Relic/faq/BMI554) Performed By: #### 7 600 #### [facility] [address], [address] [place] [address] Datastage Developer: John Siddiqui MD Cholesterol.total/Chol esterol in HDL [Mass ratio] 4.0 {ratio} Normal <5.0 [facility] Comment on above: Performed By: #### 7 600 #### [facility] [address], [address] [place], [place] [id number] Datastage Developer: John Siddiqui MD NON HDL CHOLESTEROL 121 mg/dL (calc) Normal <130 [facility] Comment on above: Result Comment: For patients with diabetes plus 1 major ASCVD risk factor, treating to a non-HDL-C goal of <100 mg/dL (LDL-C of <70 mg/dL) is considered a therapeutic option. Performed By: #### 7 600 #### [facility] [address], [address] [place] [address] Datastage Developer: John Siddiqui MD Triglyceride [Mass/Vol] 131 mg/dL Normal <150 [facility] Comment on above: Performed By: #### 7 600 #### [facility] [address], [address] [place] [address] Datastage Developer: John Siddiqui MD ANKLE COMPLETE RTon 07-22-19 21 ANKLE COMPLETE RT [place] [address] Patient: SAL PADILLA Phone#: : 1970 Age: 50 Gender: M Pt. Type: Out Account: [id number] Location: Ordering: AYLA RODRIGUEZ Exam Date: 07/21/2020/10:28 Family Phys: Charge Code: 120906 Physician: [place] Order #: [id number] DLP Dose#: PROCEDURE: X-RAY ANKLE COMPLETE RT MIN 3 VIEWS COMPARISON: [facility], XR, FOOT RT COMPLETE, 02/21/2016, 12:22. INDICATIONS: [...] Lopez MD on 07/21/2020 at 11:00 Normal [facility] LIPID PANEL, STANDARDon - Cholesterol [Mass/Vol] 183 mg/dL Normal <200 [facility] Comment on above: Performed By: #### 7 600 #### [facility] [address], [address] [place] [phone] Datastage Developer: John Siddiqui MD Cholesterol in HDL [Mass/Vol] 42 mg/dL Normal > OR = 40 [facility] Comment on above: Performed By: #### 7 600 #### [facility] [address] , [address] [place] [address] Datastage Developer: John Siddiqui MD Cholesterol in LDL [Mass/Vol] [...] equation in the estimation of LDL-C. Sean SS et al. MARIANA. 2013;310(19): 0055-8792 (http://education.New Relic/faq/PEP856) Performed By: #### 7 600 #### [facility]-[address], [address] [place] [address] Datastage Developer: John Siddiqui MD Cholesterol.total/Chol esterol in HDL [Mass ratio] 4.4 {ratio} Normal <5.0 [facility] Comment on above: Performed By: #### 7 600 #### [facility]-[address], [address] [place] [address] Datastage Developer: John Siddiqui MD NON HDL CHOLESTEROL 141 mg/dL (calc) High <130 [facility] Comment on above: Result Comment: For patients with diabetes plus 1 major ASCVD risk factor, treating to a non-HDL-C goal of <100 mg/dL (LDL-C of <70 mg/dL) is considered a therapeutic option. Performed By: #### 7 600 #### [facility] [address] , [address] [place], [place] [phone] Datastage Developer: John Siddiqui MD Triglyceride [Mass/Vol] 180 mg/dL High <150 [facility] Comment on above: Performed By: #### 7 600 #### [facility] [address] , [address] [place], [place] [phone] Datastage Developer: John Siddiqui MD OPERATIVE PROCEDURESon 11-10 OPERATIVE PROCEDURES [facility] OPERATIVE REPORT NAME ACCOUNT SEX AGE ADMIT DISCHARGE PT MED. RECORD# NUMBER DATE DATE TYPE RANDY [id number] Bj 49 11/10/19 2 [place] [id number] ROOM: [facility] DATE OF : 1970 DICTATING PHYSICIAN: Mariela Hoffman DATE OF SURGERY: November 10, 2019 SURGEON: Mariela Hoffman MD EMPLOYEE WELLNESS/FITNESS COORDINATOR: ANESTHESIOLOGIST: Rene Cevallos MD ANESTHETIC: PREOPERATIVE DIAGNOSIS: [...] discrete mass. Prostate was smooth. The Olympus CF-[id number] flexible endoscope was introduced through the anal [...] circumferential visualization, irrigation and suctioning in a [id number]-xpl-rcdlp movement as needed. The cecum and ascending [...] Mariela Hoffman MD 11/10/19 10:37 JOB #: [id number] Transcribed By: jesus manuel 11/10/19 11:17 Electronically signed by: E-Sign Dr. Mariela Hoffman MD 11/11/19 16:25 Page 2 of 2 SAL PADILLA Operative Report Normal [facility] Vital Signs Date Time Vital Sign Value Performing Clinician Faci lity 11-18-2024 11:30-0400 Body height 180.[address] Sal Arceo MD Work Phone: 0(602)[phone] [place] [address] 11-18-2024 11:30-0400 Body weight 88.[address] Sal Arceo MD Work Phone: 4(544)568-443007 [place] [address] 10-09-2024 12:31-0400 Body height 180.[address] Sal Arceo MD Work Phone: 7(549)803-575507 [place] [address] 10-09-2024 12:31-0400 Body weight 87.[address] Sal Arceo MD Work Phone: 9(226)255-572107 [place] [address] 09-03-2024 17:36-0400 Body height 180.[address] Sal Arceo MD Work Phone: 6(023)127-933707 [place] [address] 09-03-2024 17:36-0400 Body mass index (BMI) [Ratio] 26.8 kg/m2 Dr. Sal Arceo MD Work Phone: 7(557)265-046246 [place] [address] 09-03-2024 17:36-0400 Body temperature 98.5 [degF] Dr. Sal Arceo MD Work Phone: 4(867)589-525707 [place] [address] 09-03-2024 17:36-0400 Body weight 87.[address] Sal Arceo MD Work Phone: 4(680)376-361707 [place] [address] 09-03-2024 17:36-0400 Diastolic blood pressure 62 mm[Hg] Dr. Sal Arceo MD Work Phone: 6(822)022-460607 [place] [address] 09-03-2024 17:36-0400 Heart rate 67 /min Dr. Sal Arceo MD Work Phone: 6(864)719-397007 [place] [address] 09-03-2024 17:36-0400 Respiratory rate 16 /min Dr. Sal Arceo MD Work Phone: 0(531)718-114207 [place] [address] 09-03-2024 17:36-0400 SaO2% (BldA) [Mass fraction] 98 % Dr. Sal Arceo MD Work Phone: 3(288)562-029007 [place] [address] 09-03-2024 17:36-0400 Systolic blood pressure 122 mm[Hg] Dr. Sal Arceo MD Work Phone: 2(861)808-180007 [place] [address] 08-21-2024 10:09-0400 Body weight 87.[address] Sal Arceo MD Work Phone: 9(163)480-883807 [place] [address] 07-17-2024 10:30-0400 Body weight 87.[address] Sal Arceo MD Work Phone: 5(509)443-491007 [place] [address] 06-09-2024 11:30-0500 Body height 180.[address] Sal Arceo MD Work Phone: 3(530)038-770807 [place] [address] 06-09-2024 11:30-0500 Body weight 86.[address] Sal Arceo MD Work Phone: 3(024)402-626107 [place] [address] 05-15-2024 11:30-0500 Body weight 86.[address] Sal Arceo MD Work Phone: 8(983)263-972707 [place] [address] 04-15-2024 11:00-0500 Body weight 85.[address] Sal Arceo MD Work Phone: 0(178)903-361407 [place] [address] 03-27-2024 11:00-0500 Body weight 85.[address] Sal Arceo MD Work Phone: 8(298)869-943707 [place] [address] 08-01-2023 11:01-0400 Body height 180.34 cm [facility] 08-01-2023 11:01-0400 Body weight 84.36 kg [facility] 05-31-2023 11:30-0500 Body weight 83.91 kg [facility] 05-10-2023 00:53-0500 Body weight 86.72 kg [facility] 04-19-2023 10:45-0500 Body height 180.34 cm [facility] 04-19-2023 10:45-0500 Body weight 86.72 kg [facility] 03-12-2023 11:30-0500 Body height 180.34 cm [facility] 03-12-2023 11:30-0500 Body weight 87.9 kg [facility] 02-22-2023 11:30-0500 Body weight 89.62 kg [facility] 02-07-2023 00:13-0400 Body weight 91.98 kg [facility] 02-01-2023 11:00-0400 Body height 180.34 cm [facility] 02-01-2023 11:00-0400 Body weight 91.98 kg [facility] 12-28-2022 11:00-0400 Body height 180.34 cm [facility] 12-28-2022 11:00-0400 Body weight 96.61 kg [facility] 11-23-2022 12:00-0400 Body weight 102.87 kg [facility] 10-23-2022 12:11-0400 Body weight 106.68 kg [facility] 09-25-2022 12:00-0400 Body weight 110.4 kg [facility] 09-02-2021 10:50-0400 Body height 180.3 cm Pac 2 [facility] 09-02-2021 10:50-0400 Body weight 109.77 kg [facility] 2 [facility] 08-11-2021 09:33-0400 Body height 180.3 cm Milla Soto MD Work Phone: [facility] 08-11-2021 09:33-0400 Body weight 109.77 kg Milla Soto MD Work Phone: [facility] 07-28-2021 11:38-0400 Body height 180.3 cm Milla Soto MD Work Phone: [facility] 07-28-2021 11:38-0400 Body weight 108.86 kg Milla Soto MD Work Phone: [facility] Encounters Encounter Date Encounter Type Care Provider Facility Start: 02-19-2025 End: 02-19-2025 ambulatory [facility] Facility:[facility] Start: 01-29-2025 End: 02-06-2025 ambulatory [facility] Facility:[facility] Start: 01-08-2025 End: 01-08-2025 ambulatory [facility] Facility:[facility] Start: 12-22-2024 ambulatory [facility] lity:[facility] Start: 11-24-[address] Grant Arceo MD -Physical Therapy Work Phone: Start: 11-18-2024 End: 12-07-[address] Sal Arceo MD -Nutritional Services Work Phone: Start: 11-18-2024 End: 12-07-[address] Sal Arceo MD Work Phone: -Nutritional Services Start: 10-29-2024 ambulatory Sal Arceo [facility] lity:[facility] Start: 10-29-2024 Non-patient / Non-visit Dr. Prakash SAMUELS -[facility] Start: 10-29-2024 End: 10-29-[address] Sal Arceo MD Work Phone: -Cat Scan [facility] Start: 10-29-2024 End: 10-29-[address] Sal Arceo MD -Cat Scan [facility] Work Phone: Start: 10-29-2024 End: 10-29-2024 ambulatory Sal Arceo Facility:[facility] Start: 10-27-[address] Grant Arceo MD -Physical Therapy Work Phone: Start: 10-09-2024 End: 11-06-[address] Sal Arceo MD -Nutritional Services Work Phone: Start: 10-09-[address] Grant Arceo MD -Nutritional Services Work Phone: Start: 10-09-2024 End: 11-06-[address] Sal Arceo MD Work Phone: -Nutritional Services Start: 10-06-2024 End: 10-06-[address] Sla Arceo MD Work Phone: -Radiology [place] Start: 10-06-2024 End: 10-06-[address] Sal Arceo MD -[facility] Work Phone: Start: 10-06-2024 End: 10-06-2024 ambulatory Sal Arceo Facility:[facility] Start: 10-02-2024 End: 10-02-[address] Sal Arceo MD Work Phone: -Laboratory [facility] Start: 10-02-2024 End: 10-02-[address] Sal Arceo MD -[facility] Start: 10-02-2024 End: 10-02-2024 ambulatory Sal Arceo Facility:[facility] Start: 09-03-2024 End: 09-03-2024 Patient encounter procedure Jarrod Curtis [place] -[facility] Work Phone: Start: 09-03-2024 End: 09-03-[address] Sal Arceo MD Work Phone: [facility] Work Phone: Start: 08-21-2024 End: 09-08-[address] Sal Arceo MD Work Phone: [facility] Work Phone: Start: 08-21-2024 End: 09-08-[address] Sal Arceo MD -Nutritional Services Work Phone: Start: 07-17-2024 End: 08-06-[address] Sal Arceo MD -Nutritional Services Work Phone: Start: 07-17-2024 End: 08-06-2024 ambulatory [facility] Facility:[facility] Start: 06-09-2024 End: 07-07-[address] Sal Arceo MD -Nutritional Services Work Phone: Start: 06-09-2024 End: 07-07-[address] Sal Arceo MD Work Phone: [facility] Work Phone: Start: 05-15-2024 End: 06-06-[address] Sal Arceo MD -Nutritional Services Work Phone: Start: 05-15-2024 End: 06-06-2024 ambulatory [facility] Facility:[facility] Start: 04-15-2024 End: 05-09-[address] Sal Arceo MD -Nutritional Services Work Phone: Start: 04-15-2024 End: 05-09-2024 ambulatory [facility] Facility:[facility] Start: 03-27-2024 End: 04-08-[address] Sal Arceo MD -Nutritional Services Work Phone: Start: 03-27-2024 End: 04-08-2024 ambulatory [facility] Facility:[facility] Start: 08-01-2023 End: 08-07-2023 ambulatory [facility] Work Phone: Start: 08-01-2023 End: 08-07-2023 Discharged Recurring [facility]-Nutritional Services Work Phone: Start: 05-31-2023 End: 06-07-2023 ambulatory [facility] Work Phone: Start: 05-31-2023 End: 06-07-2023 Discharged Recurring [facility]-Nutritional Services Work Phone: Start: 04-19-2023 End: 05-09-2023 ambulatory [facility] Work Phone: Start: 04-19-2023 End: 05-09-2023 Discharged Recurring [facility]-Nutritional Services Work Phone: Start: 03-12-2023 End: 04-08-2023 ambulatory [facility] Work Phone: Start: 03-12-2023 End: 04-08-2023 Discharged Recurring [facility]-Nutritional Services Work Phone: Start: 02-22-2023 End: 03-08-2023 ambulatory [facility] Work Phone: Start: 02-22-2023 End: 03-08-2023 Discharged Recurring [facility]-Nutritional Services Work Phone: Start: 02-01-2023 End: 02-06-2023 ambulatory [facility] Work Phone: Start: 02-01-2023 End: 02-06-2023 Discharged Recurring [facility]-Nutritional Services Work Phone: Start: 12-28-2022 End: 01-06-2023 ambulatory [facility] Work Phone: Start: 12-28-2022 End: 01-06-2023 Discharged Recurring [facility]-Nutritional Services Work Phone: Start: 11-23-2022 End: 12-07-2022 Discharged Recurring [facility]-Nutritional Services Work Phone: Start: 10-23-2022 End: 11-06-2022 Discharged Recurring [facility]-Nutritional Services Work Phone: Start: 09-25-2022 End: 10-06-2022 Discharged Recurring [facility]-Nutritional Services Work Phone: Start: 09-06-2022 End: 09-06-2022 ambulatory [facility] Work Phone: Start: 09-06-2022 End: 09-06-2022 Discharged Recurring [facility]-Nutritional Services Start: 08-02-2022 End: 08-02-2022 ambulatory [facility] Work Phone: Start: 08-02-2022 End: 08-02-2022 Patient encounter procedure [facility]-Tin Mcd[facility] Start: 07-31-2022 End: 07-31-2022 ambulatory [facility] Work Phone: Start: 07-31-2022 End: 07-31-2022 Discharged Recurring [facility]-Physical Therapy Start: 06-08-2022 End: 06-08-2022 ambulatory [facility] MARIELOS Facility:[facility] Start: 06-08-2022 End: 06-08-2022 Patient encounter procedure Milla Soto MD Work Phone: Orthopedics Comment on above: Acquired cavovarus d eformity of foot, right (Primary Dx) Start: 06-08-2022 End: 06-08-2022 Subsequent hospital visit by physician Thomas Corona [employer] Work Phone: Radiology Comment on above: Acquired cavovarus d eformity of foot, 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] Start: 03-06-2022 End: 03-06-2022 ambulatory SAL ARCEO Facility:[facility] Start: 03-06-2022 End: 03-06-2022 Patient encounter procedure Milla Soto MD Work Phone: Orthopedics Comment on above: Acquired cavovarus d eformity of foot, right (Primary Dx) Start: 03-06-2022 End: 03-06-2022 Subsequent hospital visit by physician Thomas Corona [employer] Work Phone: Radiology Comment on above: Right ankle pain, un specified chronicity [M25.571] Start: 01-24-2022 Refill Ofelia haynes PA-C Work Phone: Orthopaedics Comment on above: Refill Request Start: 01-05-2022 End: 01-05-2022 ambulatory MILLA SOTO Facility:[facility] Start: 01-05-2022 End: 01-05-2022 Patient encounter procedure Milla Soto MD Work Phone: Orthopedics Comment on above: Right ankle pain, un specified chronicity (Primary Dx) Start: 01-05-2022 End: 01-05-2022 Subsequent hospital visit by physician Thomas Corona [employer] Work Phone: Radiology Comment on above: Right ankle pain, un specified chronicity [M25.571] Start: 11-24-2021 End: 11-24-2021 ambulatory [place] ARCEO Facility:[facility] Start: 11-24-2021 End: 11-24-2021 Patient encounter procedure Milla Soto MD Work Phone: Orthopedics Comment on above: Acquired cavovarus d eformity of foot, right (Primary Dx) Start: 11-24-2021 End: 11-24-2021 Subsequent hospital visit by physician Thomas Corona [employer] Work Phone: Radiology Comment on above: Acquired cavovarus d eformity of foot, 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] Start: 11-23-2021 Orders Only Milla bryant MD Work Phone: Orthopedics Comment on above: Acquired cavovarus d eformity of foot, right (Primary Dx) Start: 10-27-2021 End: 10-27-2021 ambulatory [place] Marip[place] ARCEO Facility:[facility] Start: 10-27-2021 End: 10-27-2021 Patient encounter procedure Milla Soto MD Work Phone: Orthopedics Comment on above: Acquired cavovarus d eformity of foot, right (Primary Dx) Start: 10-27-2021 End: 10-27-2021 Subsequent hospital visit by physician Thomas Corona [employer] Work Phone: Radiology Comment on above: Acquired cavovarus d eformity of foot, 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] Start: 10-13-2021 End: 10-13-2021 ambulatory [facility] [place] Facility:[facility] Start: 10-13-2021 End: 10-13-2021 Patient encounter procedure [...] baumann MD Work Phone: [facility] [place] Comment on above: Patient Update (Call ing for patient update) Start: 09-27-2021 End: 09-27-2021 ambulatory SAL ARCEO Facility:[facility] Start: 09-27-2021 End: 09-27-2021 Patient encounter procedure Ofelia Clay PA-C Work Phone: Orthopaedics Comment on above: Acquired cavovarus d eformity of foot, right (Primary Dx); Postop check Start: 09-22-2021 End: 09-22-2021 ambulatory SAL ARCEO Facility:[facility] Start: 09-22-2021 Telephone encounter Siva bermudez PA-C Work Phone: Pain Management Comment on above: Recheck Start: 09-20-2021 End: 09-22-2021 ambulatory SAL ARCEO Facility:[facility] Start: 09-09-2021 End: [facility] Start: 09-09-2021 Telephone encounter Ofelia Burns Pre Anesthesia Comment on above: PreOp Call (labs ord ered ) Start: 09-02-2021 End: 09-02-2021 ambulatory SAL ARCEO Facility:[facility] Start: 09-02-2021 End: 09-02-2021 [facility] Start: 09-02-2021 End: 09-02-2021 ambulatory Pac 2 Pre Anesthesia Comment on above: Preoperative examina tion (Primary Dx); Acquired cavovarus deformity of foot, right; Hyperlipidemia, unspecified hyperlipidemia type; Cerebral aneurysm; BMI 34.0-34.9,adult Start: 09-02-2021 End: 09-02-2021 Preprocedural examination done Pac 2 Pre Anesthesia Start: 08-25-2021 End: 08-25-2021 ambulatory SAL ARCEO Facility:[facility] Start: 08-25-2021 End: 08-25-2021 Patient encounter procedure Milla Soto MD Work Phone: Orthopedics Comment on above: Acquired cavovarus d eformity of foot, right (Primary Dx) Start: 08-14-2021 End: 08-14-2021 ambulatory MILLA SOTO Facility:[facility] Start: 08-14-2021 End: 08-14-2021 Subsequent hospital visit by physician Julián 7 [employer] Main Q (I-Stat/1.5t/3t) Work Phone: MRI Q Comment on above: Peroneal tendinitis of right lower extremity [M76.71] Start: 08-11-2021 End: 08-11-2021 ambulatory MILLA SOTO Facility:[facility] Start: 08-11-2021 End: 08-11-2021 Patient encounter procedure Milla Stoo MD Work Phone: Orthopedics Comment on above: Cavovarus deformity of foot (Primary Dx) Start: 08-04-2021 End: 08-04-2021 ambulatory MILLA SOTO Facility:[facility] Start: 08-02-2021 End: 08-02-2021 Patient encounter procedure [facility] Start: 08-01-2021 Encounter for other preprocedural examination MILLA SOTO [facility] Start: 07-30-2021 End: 08-01-2021 ambulatory SAL ARCEO Facility:[facility] Start: 07-28-2021 End: 07-28-2021 ambulatory AYLA RODRIGUEZ Facility:[facility] Start: 07-28-2021 End: 07-28-2021 Subsequent hospital visit [...] extremity Start: 07-11-2021 End: 07-11-2021 Discharged Recurring [facility]-Physical Therapy Start: 07-11-2021 Registered Recurring [facility]-Physical Therapy Start: 06-06-2021 ambulatory AYLA RODRIGUEZ Faci lity:[facility] Start: 06-02-2021 ambulatory MILLA MCGILL Facili ty:[facility] Start: 05-24-2021 End: 05-24-2021 Patient encounter procedure [facility]-Radiology, [place] Start: 07-21-2020 End: 07-21-2020 Patient encounter procedure AYLA RODRIGUEZ [facility] Start: 11-10-2019 End: 11-10-2019 Patient encounter procedure MARIELA HOFFMAN [facility] Start: 11-07-2019 Patient encounter procedure [facility] Start: 09-18-2019 End: 09-18-2019 Patient encounter procedure JUDITH RAMAN [facility] Procedures Date Procedure Procedure Detail Performing Clinician Start: 10-29-2024 CT angiography of coronary arteries Dr. Sal Arceo MD Work Phone: Start: 10-06-2024 X-ray of knee, four or [...] Treatment Date Care Activity Detail Author Start: 02-26-2025 ambulatory Ambulatory Facility:[facility] Start: 09-22-2024 DIABETES SCREEN DIABETES SCREEN [facility] Start: 09-22-2024 Diabetes Screening Diabetes Screenin g [facility] Start: 12-09-2023 Covid-19 Vaccine ( season) Covid-19 Vaccine ( season) [facility] Start: 12-09-2023 Influenza vaccination Influenza Vacc ine (#1) [facility] Start: 06-29-2023 Prostate specific antigen measurement Prostate Cancer Screening Discussion [facility] Start: 04-09-2022 DEPRESSION ASSESSMENT DEPRESSION ASS ESSMENT [facility] Start: 12-08-2021 Influenza vaccination C [facility] Start: 08-25-2021 End: 10-25-2021 Basic metabolic 2000 panel - Serum or Plasma BASIC METABOLIC PNL Lab Routine Acquired cavovarus deformity of foot, right Expected: 08/25/2021, Expires: 10/25/2021 [facility] Work Phone: Comment on above: Expected: 08/25/2021 , Expires: 10/25/2021 Start: 08-25-2021 End: 10-25-2021 CBC W Auto Differential panel - Blood CBC + DIFF Lab Routine Acquired cavovarus deformity of foot, right Expected: 08/25/2021, Expires: 10/25/2021 [facility] Work Phone: Comment on above: Expected: 08/25/2021 , Expires: 10/25/2021 Start: 04-09-2021 DEPRESSION ASSESSMENT DEPRESSION ASS ESSMENT [facility] Start: 2018 SHINGRIX VACCINE (1 of 2) SHINGRIX VACCINE (1 of 2) [facility] Start: 2013 COLOGUARD (FIT-DNA) COLOGUARD (FIT-D NA) [facility] Start: 2013 Colonoscopy COLONOSCOPY [facility] Start: 2013 COLORECTAL CANCER SCREENING COLORECTAL CANCER SCREENING [facility] Start: [address] COLONOGRAPHY [facility] Start: 2013 DIABETES SCREEN DIABETES SCREEN [facility] Start: 2013 FECAL OCCULT BLOOD FECAL OCCULT BLOO D [facility] Start: 2013 Screening for malign ant neoplasm of colon [facility] Start: 2013 SIGMOIDOSCOPY SIGMOIDOSCOPY [facility] Start: 06-29-2003 Lipid panel Lipid Screening [facility] Start: 06-29-2003 LIPID SCREEN LIPID SCREEN [facility] Start: 06-29-1987 Hepatitis B Vaccine (1 of 3 - 19+ 3-dose series) Hepatitis B Vaccine (1 of 3 - 19+ 3-dose series) [facility] Start: 06-29-1987 Urine microalbumin profile [facility] Start: 1986 Anxiety Screening Anxiety Screening [facility] Start: 1986 Depression Screening Depression Scre ening [facility] Start: 1986 HEPATITIS C SCREENING HEPATITIS C [facility] Start: 1986 Hepatitis C screening Hepatitis C [facility] Start: 1986 HIV SCREENING HIV SCREENING [facility] Start: 1986 HIV screening HIV Screening [facility] Start: 1980 Adult depression screening assessment DEPRESSION SCREENING [facility] Start: 1973 COVID-19 VACCINE (#1) COVID-19 VACCI NE (#1) [facility] Start: 1973 COVID-19 VACCINE (1) COVID-19 VACCIN E (1) [facility] Start: 1968 COVID-19 VACCINE (#1) COVID-19 VACCI NE (#1) [facility] Start: 1968 HEPATITIS B (1 of 3 - 3-dose series) HEPATITIS B (1 of 3 - 3-dose series) [facility] End: 08-27-2022 Mri any jt lower extrem w/o contrast matrl MRI ANKLE WO IVCON RT Radiology Routine Peroneal tendinitis of right lower extremity 1 Occurrences starting 07/28/2021 until 08/27/2022 [facility] Work Phone: Comment on above: 1 Occurrences starti ng 07/28/2021 until 08/27/2022 End: 11-12-2022 XR ANKLE GENERAL 3V AP/LAT/OBL RIGHT XR ANKLE GENERAL 3V AP/LAT/OBL RIGHT Radiology Routine Acquired cavovarus deformity of foot, right 1 Occurrences starting 10/13/2021 until 11/12/2022 [facility] Work Phone: Comment on above: 1 Occurrences starti ng 10/13/2021 until 11/12/2022 End: 12-23-2022 XR ANKLE GENERAL 3V AP/LAT/OBL RIGHT XR ANKLE GENERAL 3V AP/LAT/OBL RIGHT Radiology Routine Acquired cavovarus deformity of foot, right 1 Occurrences starting 11/23/2021 until 12/23/2022 [facility] Work Phone: Comment on above: 1 Occurrences starti ng 11/23/2021 until 12/23/2022 End: 02-04-2023 XR ANKLE GENERAL 3V AP/LAT/OBL RIGHT XR ANKLE GENERAL 3V AP/LAT/OBL RIGHT Radiology Routine Right ankle pain, unspecified chronicity 1 Occurrences starting 01/05/2022 until 02/04/2023 [facility] Work Phone: Comment on above: 1 Occurrences starti ng 01/05/2022 until 02/04/2023 End: 04-05-2023 XR ANKLE GENERAL 3V AP/LAT/OBL RIGHT XR ANKLE GENERAL 3V AP/LAT/OBL RIGHT Radiology Routine Acquired cavovarus deformity of foot, right 1 Occurrences starting 03/06/2022 until 04/05/2023 [facility] Work Phone: Comment on above: 1 Occurrences starti ng 03/06/2022 until 04/05/2023 End: 08-27-2022 XR CALCANEUS 2V AXIAL/LAT RIGHT XR CALCANEUS 2V AXIAL/LAT RIGHT Radiology Routine Pain in joint involving right ankle and foot Peroneal tendinitis of right lower extremity 1 Occurrences starting 07/28/2021 until 08/27/2022 [facility] Work Phone: Comment on above: 1 Occurrences starti ng 07/28/2021 until 08/27/2022 End: 11-12-2022 XR FOOT GENERAL 3V AP/LAT/OBL RIGHT XR FOOT GENERAL 3V AP/LAT/OBL RIGHT Radiology Routine Acquired cavovarus deformity of foot, right 1 Occurrences starting 10/13/2021 until 11/12/2022 [facility] Work Phone: Comment on above: 1 Occurrences starti ng 10/13/2021 until 11/12/2022 End: 12-23-2022 XR FOOT GENERAL 3V AP/LAT/OBL RIGHT XR FOOT GENERAL 3V AP/LAT/OBL RIGHT Radiology Routine Acquired cavovarus deformity of foot, right 1 Occurrences starting 11/23/2021 until 12/23/2022 [facility] Work Phone: Comment on above: 1 Occurrences starti ng 11/23/2021 until 12/23/2022 [facility] Payers Date Payer Category Payer Unknown [id number] 2024 Self-pay [id number] 2018 Unknown [id number] 2018 Unknown MMO MMO [employer] [id number] 2018-Present [phone] [address] [place] [address] PPO [id number] 2018 Unknown [id number] [id number] [id number] 2006 Unknown [id number] 1970 Unknown [id number] 2.16.840.1.967163.3.579.2.651 1970 Unknown [id number] 2.16.840.1.731669.3.579.2.651 1968 Unknown [id number] 2.16.840.1.335462.3.579.2.651 1968 Unknown [id number] 2.16.840.1.739878.3.579.2.651 1968 Unknown [id number] 2.16.840.1.122974.3.579.2.594 1968 Unknown [id number] 2.16.840.1.726480.3.579.2.594 Unknown [id number] 2.16.840.1.252393.3.579.2.462 Unknown [id number] 2.16.840.1.037895.3.579.2.462 Unknown [id number] 2.16.840.1.575934.3.579.2.462 Unknown [id number] 2.16.840.1.228173.3.579.2.462 Unknown [id number] 2.16.840.1.033257.3.579.2.462 Unknown [id number] 2.16.840.1.481875.3.579.2.462 Unknown [id number] 2.16.840.1.568470.3.579.2.462 Unknown [id number] 2.16.840.1.696863.3.579.2.462 Unknown [id number] 2.16.840.1.924231.3.579.2.462 Unknown [id number] 2.16.840.1.879925.3.579.2.462 Unknown [id number] 2.16.840.1.020800.3.579.2.462 Unknown [id number] 2.16.840.1.412711.3.579.2.462 Unknown [id number] 2.16.840.1.537485.3.579.2.462 Unknown [id number] 2.16.840.1.146313.3.579.2.462 Unknown [id number] 2.16.840.1.843768.3.579.2.462 Unknown [id number] 2.16840.1.649550.3.579.2.462 Unknown [id number] 2.16840.1.231909.3.579.2.462 Unknown [id number] 2.16.840.1.190911.3.579.2.462 Social History Date Type Detail Facility Start: 12-03-2020 End: 07-28-2021 Tobacco smoking status TXIS Ex-smoker [facility] End: 04-09-2003 History of tobacco use Current smoker [facility] Start: 07-28-2021 End: 09-02-2021 Alcohol intake Current drinker of alcohol (finding) [facility] Start: 07-28-2021 End: 07-29-2021 Alcohol intake [facility] Start: 1970 Sex Assigned At Male C [facility] Start: 07-18-2021 End: 09-27-2021 Exposure to SARS-CoV-2 (event) Not sure [facility] Start: 05-03-2019 End: 12-03-2020 Tobacco smoking status [facility] Unknown if ever smoked [facility] Start: 07-29-2021 History SDOH Alcohol Comment 1-2 x per month. [facility] End: 04-09-2003 History of tobacco use Cigarette Smoker [facility] Start: 07-28-2021 End: 11-24-2021 Tobacco use and exposure Smokeless tobacco non-user [facility] Start: 11-24-2021 [facility] Start: 07-29-2021 End: 06-08-2022 Tobacco use panel [facility] National Score (1-100), lower number is lower risk 54 [facility] Start: 07-27-2021 Gender identity Identifies as male gender (finding) [facility] Start: 07-08-2024 Sex Male (finding) [facility] Medical Equipment Procedure Code Equipment Code Equipment [...] joint Locking 2.4mm Screws FDA Start: 12-10-2020 [place] Sut Dx Fi bertab - [id number] Start: 09-20-2021 [place] Sut Dx Fi bertab - [id number] Start: 09-20-2021 [place] Sut Dx Fi bertab - [id number] Start: 09-20-2021 Graft Bone Sub M 5cc Osteostrand - [id number] Start: 09-20-2021 Graft Bone 15ml 1-4mm Cancellous Osteoconductive Packable Rsorbabl Crushed - [id number] Start: 09-20-2021 Graft Bn Augment Inj 1.5cc - [id number] Start: 09-20-2021 Graft Bn Augment Inj 1.5cc - [id number] Start: 09-20-2021 Internalbrace Li gament Augmentation Repair Kit [id number] Start: 09-20-2021 Screw Acutrak 2 7.5mm Full Thread Titanium 90mm Bone Headless Compression - [id number] Start: 09-20-2021 Screw Acutrak 2 Full Thread Titanium 65mm Bone Headless Compression - [id number] Start: 09-20-2021 Screw 7.3mm Dari nium 85mm 16mm Bone Cannulated Nonsterile Long Bone - [id number] Start: 09-20-2021 Clinical Notes 03-23-2009 to 11-01-2024 Note Date & Type Note Facility 11-01-2024 Radiology Diagnostic study note [facility] Imaging Services [address] [place] [address] Cardiac Only MR#: [id number] Acct: [id number] Name: SAL PADILLA Rep #: [id number] : 1970 M 54 From: Vic Rivera MD PCP: Dr. Sal Arceo MD Status: REG CLI Study:Limited Chest CT Cardiac Only Date of E xam: 10/29/24 Exam# [id number] Ordering Dr: Wendy Arceo MD PROCEDURE: LIMITED CHEST CT CARDIAC ONLY 10/29/2024 REASON FOR EXAM: HLD TECHNIQUE: LIMITED CHEST CT CARDIAC ONLY Coronal and Sagittal reconstruction series were provided One or more dose reduction techniques were used (e.g., Automated exposure control, adjustment of the mA and/or kV according to patient size, use of iterative reconstruction technique). RADIATION DOSE SUMMARY: CTDlvol: 12.19 mGy DLP: 290.42 mGycm COMPARISON: None. FINDINGS: No cardiomegaly. No aortic aneurysm. Minimal atherosclerotic calcifications ofthe coronary arteries. Mildly enlarged mediastinal lymph nodes, nonspecific, for example a prevascular lymph node measures 14 x 5 mm. No acute bony abnormalities. The visualized lungs are clear. CT/Limited Chest CT Cardiac Only IMPRESSION: Nonspecific small mediastinal lymph nodes. Minimal atherosclerotic calcifications of the coronary arteries. No cardiomegaly. Reading Location: [facility] CC: Dr. Sal Arceo MD ~ Content Assistant: Signed [facility] 10-29-2024 Radiology Diagnostic study note [facility] Imaging Services [address] [place] [address] 10/29/24 1724 MR#: [id number] Acct: [id number] Name: SAL PADILLA Rep #:[id number] : 1970 54 From: Merritt Sen MD PCP: Dr. Sal Arceo MD Status :REG CLI Y Location: CT Calcium Scoring Date of Study:: 10/29/24 Indications Indications: Hyperlipidemia Coronary Calcium Scoring: High-resolution Computed Tomographic imaging of the chest was performed on [10/29/2024], with particular attention paid to the coronary arteries. Images from the examination were analyzed for the presence and extent of coronary artery calcification , using coronary calcium quantification software. The patient tolerated the procedure well and there were no complications. The results of the coronary calcification analysis are provided below. Findings Coronary Artery Left Main (LM): 0 Left Anterior Descending (LAD): 5 Left Circumflex (LCX): 0 Right Coronary Artery (RCA): 0 Total Agatston Score: 5 Percentile Rankinth percentile Calcium Scoring Interpretation: Different methods to categorize the overall amount of coronary plaque. Overall amount CAC SIS Visual of coronary plaque P1 Mild -100 <2 1-2 vessels with mild amount of plaque P2 Moderate 101-300 3-4 1-2 vessels with moderate amount, 3 vessels with mild amount of plaque P3 Severe 301-999 5-7 3 vessels with moderate amount, 1 vessel with severe amount of plaque P4 Extensive >1000 >8 2-3 vessels with severe amount of plaque Calcium Score: Mild: 1-2 vessels w/mild amount of plaque Conclusion: Mild focal atherosclerotic plaquing 10/29/24 1725 Date _ _ Merritt Sen MD Cosigner Signature (if applicable): Date __ CC: Dr. Sal Arceo MD; Dr. Merritt Sen MD ~ Signed [facility] Work Phone: 10-06-2024 Radiology Diagnostic study note [facility] Services [address] [place], [place] [address] Knee 4 or More Views MR#: [id number] Acct: [id number] Name: SAL PADILLA Rep #: [id number] : 1970 M 54 From: Jaspreet Landon MD PCP: Dr. Sal Arceo MD Status: REG CLI Study:Knee 4 or More Views Date of Exam: 10/06/24 Exam# [id number] Ordering Dr: Wendy Arceo MD PROCEDURE: KNEE [...] fracture or suspicious osseous lesion Reading Location: [facility] CC: Dr. Sal Arceo MD ~ Content Assistant: Signed [facility] 10-06-2024 Radiology Diagnostic study note [facility] Imaging Services [address] [place] [address] [id number] L/S Spine w Bend Min 6 Vw MR#: [id number] Acct: [id number] Name: SAL PADILLA Rep #: [id number] : 1970 M 54 From: Jaspreet Landon MD PCP: Dr. Sal Arceo MD Status: REG CLI Study:L/S Spine w Bend Min 6 Vw Date of Exam: 10/06/24 Exam# [id number] Ordering Dr: Wendy Arceo MD PROCEDURE: L/S [...] degenerative changes, no acute findings Reading Location: [id number] CC: Dr. Sal Arceo MD ~ Content Assistant: Signed [facility] 09-03-2024 Progress note [facility] 09-03-2024 Progress note Note Date/Time September 03, 2024 5:48pm [facility] [address], [address] [place] [address] OFFICE VISIT Date of Service: 09/03/24 MR#: [id number] Acct: [id number] Name: SAL PADILLA Rep #: [id number] : 1970 Provider: EMILY Stovall Age/Sex: 54/M Location: 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 Is patient in pain?: Yes [...] Social History (Updated 04/07/18 @ 13:57 by Mlila DIAZ, EMILY) Smoking Status: Former smoker HPI [...] by Jarrod DIAZ> Date _ Jarrod DIAZ Cosignlaron Signature: Date (if applicable) CC: ~ [employer] Work Phone: 1(187) 582-799904-24-2023 Discharge summary Author Angelo Tucker [facility] July 31, 2022 12:09pm Note Date/Time July 31, 2022 12: 09pm [facility] Physical Therapy [facility] [address] [place] [address] [address] [place] [address] / REHABILITATION SERVICES DISCHARGE SUMMARY MR#: [id number] Acct: [id number] Name: SAL PADILLA #: [id number] : 1970 52 From: Angelo Tucker PT, ATC Referring DrMelany: Status: REG RCR Insurance: [facility] [employer] It has been my pleasure [...] please feel free to call me at [phone]. Thank you for the referral of thispatient. Sincerely, Angelo Tucker, PT, ATC Balance/Gait/Functional tests - Balance/Special Test Scores Lower Extremity Functional Score: 37 <Electronically signed by Angelo Tucker PT, ATC> 07/31/22 1209 CC: Dr. Awais Arceo MD; MILLA SOTO ~ [facility] Signed [facility] Work Phone: 1(675) 137-740603-02-2023 NoteHNO ID: [id number] Author: Milla Soto MD Service: ? Author [...] next visit: Yes PCP: Sal Arceo MD [address] [place] [phone] FELLOW / RESIDENT: No fellow or resident assisted in this office visit. Milla Soto, [facility]03-02-2023 History of Present illness Narrative* Milla [...] next visit: Yes PCP: Sal Arceo MD [address] [place] [phone] FELLOW / RESIDENT: No fellow or resident assisted in this office visit. Milla Soto MD documented in this encounterOhiohealth03-02-2023 NoteHNO ID: [id number] Author: RT Nena(Ranjith) Service: ? Author Type: [...] DATA: Not applicable SIGNED BY: RT Nena(Ranjith) June 08, 2022 9:39 [facility]03-02-2023 History of Present illness Narrative* Abisai [...] 08, 2022 9:39 AM documented in this encounterOhiohealth11-28-2022 NoteHNO ID: [id number] Author: Milla Soto MD Service: ? Author [...] next visit: Yes PCP: Sal Arceo MD [address] [place] [phone] FELLOW / RESIDENT: No fellow or resident assisted in this office visit. Milla Soto, [facility]11-28-2022 NoteHNO ID: [id number] Author: Abisai Cheek RT(R) Service: ? Author Type: Technologist Type: Progress [...] BY: RT Nena(R) March 06, 2022 11:18 [facility]11-28-2022 History of Present illness Narrative* Milla [...] next visit: Yes PCP: Sal Arceo MD [address] [place] [phone] FELLOW / RESIDENT: No fellow or resident assisted in this office visit. Milla Soto MD documented in this encounterOhiohealth11-28-2022 History of Present illness Narrative* Abisai Cheek RT(R) - 03/06/2022 10:00 AM EST Radiology [...] 06, 2022 11:18 AM documented in this encounterOhiohealth09-29-2022 NoteHNO ID: [id number] Author: Milla Soto MD Service: ? Author [...] next visit: Yes PCP: Sal Arceo MD [address] [place] [phone] FELLOW / RESIDENT: No fellow or resident assisted in this office visit. Milla Soto, [facility]09-29-2022 NoteHNO ID: [id number] Author: RT Nena(R) Service: ? Author Type: [...] BY: RT Nena(R) January 05, 2022 10:28 [facility]09-29-2022 History of Present illness Narrative* Milla [...] 180.3 cm (5' 11). Weight as of 6/15/22: 109.8 kg (242 lb 1 oz). Past [...] weeks X-Ray's at next visit: Yes PCP: MD Clinton Solorzano [facility] [id number] FELLOW / RESIDENT: No fellow or resident assisted in this office visit. Milla Soto MD documented in this encounterOhiohealth09-29-2022 History of Present illness Narrative* Abisai Cheek [...] 05, 2022 10:28 AM documented in this encounterOhiohealth08-18-2022 NoteHNO ID: [id number] Author: Milla Soto MD Service: ? Author Type: Physician Type: Progress Notes Filed: 11/24/2021 6:05 PM Note Text: Incisions healed Superficial dry eschar lateral Alignment intact XR with healing Plan for boot, ROM, partial WB x 3 then WBAT x 3 FU 6 for PT Milla Soto, [facility]08-18-2022 History of Present illness Narrative* Milla Soto MD - 11/24/2021 6:03 PM EDT Incisions healed Superficial dry eschar lateral Alignment intact XR with healing Plan for boot, ROM, partial WB x 3 then WBAT x 3 FU 6 for PT Milla Soto MD documented in this encounterOhiohealth08-18-2022 NoteHNO ID: [id number] Author: RT Nena(Ranjith) Service: ? Author Type: [...] BY: RT Nena(R) November 24, 2021 2:16 [facility]08-18-2022 History of Present illness Narrative* Abisai [...] 24, 2021 2:16 PM documented in this encounterOhiohealth08-18-2022 NoteHNO ID: [id number] Author: COLE Coker Service: ? Author Type: Clinical Hydroblaster Type: Progress Notes Filed: 11/25/2021 8:06 AM Note Text: PT ASSESSMENT - CASTING ROOM Sal presents for Application of boot. Applied high fracture walker and nightsplint to Right ankle Patient has been instructed in Care of boot.. COLE Coker Beeper:[facility]08-17-2022 NoteHNO ID: [id number] Author: Julio Kumari PA-C Service: ? Author Type: Physician User Interface Engineer Type: Progress Notes Filed: 11/23/2021 3:54 PM Note Text: [facility] [place]-17-20[facility] History of Present illness Narrative* Julio Kumari PA-C - 11/23/2021 3:54 PM EDT Images from the original note were not included. DEPARTMENT OF ORTHOPAEDICS documented in this encounterOhiohealth07-21-2022 NoteHNO ID: [id number] Author: Milla Soto MD Service: ? Author Type: Physician Type: Progress Notes Filed: 10/27/2021 1:37 PM Note Text: Incisions CDI Improved swelling Good alignment XR with good healing SLNWBC fu 3 weeks with Qing Alvarez for SLNWBC Then fu with me 3 weeks later for XR Milla Soto [facility]07-21-2022 NoteHNO ID: [id number] Author: COLE Coker Service: ? Author Type: Clinical Hydroblaster Type: Progress Notes Filed: 10/27/2021 12:05 PM Note Text: PT ASSESSMENT - CASTING ROOM Sal presents for Application of cast. Applied short cast: to Right leg Patient has been instructed in Care of cast.. COLE Coker Beeper:[facility]07-21-2022 History of Present illness Narrative * Milla [...] cast.. COLE Coker Beeper: documented in this encounterOhiohealth07-21-2022 NoteHNO ID: [id number] Author: RT Nena(R) Service: ? Author Type: [...] BY: RT Nena(R) October 27, 2021 11:39 [facility]07-21-2022 History of Present illness Narrative* Abisai [...] 27, 2021 11:39 AM documented in this encounterOhiohealth07-07-2022 NoteHNO ID: [id number] Author: Milla Soto MD Service: ? Author Type: Physician Type: Progress Notes Filed: 10/13/2021 11:47 AM Note Text: Incision CDI Mild swelling Sutures removed SLNWBC FU 2 weeks with XR Milla Soto [facility]07-07-2022 History of Present illness Narrative* Milla Soto MD - 10/13/2021 11:47 AM EDT Incision CDI Mild swelling Sutures removed SLNWBC FU 2 weeks with XR Milla Soto MD documented in this encounterOhiohealth06-24-2022 Miscellaneous Notes* Telephone Encounter - Jeromy Bell - 09/30/2021 2:26 PM EDT Called patient per Lois Clay for an update on post-op rash. Left a nonspecific voicemail asking patient to return my call for an update and provided office phone number. documented in this encounterOhiohealth06-23-2022 Miscellaneous Notes* Telephone Encounter - Maggi Philippe RN - 09/29/2021 11:14 AM EDT DOS: 09/20/2021 Type of Surgery: R subtalar arthrodesis and ankle ligament repair Surgeon : Charles Catheter site: Popliteal PNC Solution: Ropivacaine 0.2% Rates: Phone number: [phone] (pt), (Qing - mom) Discharge date: 09/22/202109/29 [...] PNC Solution: Ropivacaine 0.2% Rates: Phone number: [phone] (pt), (Qing - mom) Discharge date: 09/22/2021 1000- call placed to pt at this time with no answer. * Telephone Encounter - Maggi Philippe RN - 09/27/2021 2:15 PM EDT DOS: 09/20/2021 Type of Surgery: R subtalar arthrodesis and ankle ligament repair Surgeon : Charles Catheter site: Popliteal PNC Solution: Ropivacaine 0.2% Rates: Phone number: [phone] (pt), (Qing - mom) Discharge date: 09/22/202109/27 [...] PNC Solution: Ropivacaine 0.2% Rates: Phone number: [phone] (pt), (Qing - mom) Discharge date: 09/22/2021 Switched to Ambit pump, educated on its use, discussed LA/SE and s/s that should be reported, patient/famiyl verbalized understanding. Will follow up with phone call. documented in this encounterOhiohealth06-21-2022 NoteHNO ID: [id number] Author: Ofelia Clay PA-C Service: ? Author Type: Physician User Interface Engineer Type: Progress Notes Filed: 09/27/2021 5:32 PM Note Text: Milla Soto [address] [facility] [address] Specialty Problems Ortho Problems Right ankle pain [...] which included preparing to see the patient, jryc-ld-hmgu patient care, completing clinical documentation, obtaining and/or [...] areas. IMAGING: No imaging was performed today. [facility] History of Present illness Narrative* Ofelia Clay PA-C - 09/27/2021 5:26 PM EDT Milla Soto [address] [facility] [address] Specialty Problems Ortho Problems Right ankle pain [...] discussed emergent need to return to the [facility] or go to the emergency department. We discussed red flags associated with this condition and emergent treatment if they present. I spent a total of 20 minutes on the date of the service which included preparing to see the patient, jhnc-yb-slvl patient care, completing clinical documentation, obtaining and/or [...] today. Ofelia Clay PA-C documented in this encounterOhiohealth06-21-2022 NoteHNO ID: [id number] Author: Veronika COLE Wilhelm Service: ? Author Type: Clinical Hydroblaster Type: Progress Notes Filed: 10/05/2021 11:18 AM Note Text: PT ASSESSMENT - CASTING ROOM Sal presents for Application of cast. Applied short cast: to Right foot Patient has been instructed in Care of cast.. COLE Coker Beeper: [id number] Clinic [facility]06-16-2022 NoteHNO ID: [id number] Author: Guillaume Perez PA-C Service: Orthopaedic Surgery Author Type: Physician User Interface Engineer Type: Plan of Care Filed: 09/22/2021 10:37 AM Note Text: Orthopedic Plan of Care Visit SERVICE DATE: September 22, 2021 SERVICE TIME: [facility] Type of Surgery/Reason for Admission: s/p ARTHRODESIS [...] in this patient's care. Guillaume Perez PA-C [phone] Clinic Foundation06-16-2022 NoteHNO ID: [id number] Author: Yun Cross MD Service: Orthopaedic Surgery [...] Yun Cross MD Orthopaedic Surgery PGY-3 Pager: [phone] (Page 2BONE after 5pm and on weekends)[facility]06-15-2022 NoteHNO ID: [id number] Author: Guillaume Perez PA-C Service: Orthopaedic Surgery Author Type: Physician User Interface Engineer Type: Plan of Care Filed: 09/21/2021 3:51 [...] much. No other concerns at this time. 9230 update: Patient with fever and breakthrough pain [...] in this patient's care. Guillaume Perez PA-C [phone] Clinic Foundation06-15-2022 NoteHNO ID: [id number] Author: Yun Cross MD Service: Orthopaedic Surgery Author Type: Resident Type: Progress Notes Filed: 09/21/2021 7:32 AM Note Text: ORTHOPAEDIC SURGERY PROGRESS NOTE PATIENT NAME: Sal Padilla Attending: Dr. Milla Soto MD A/P: 51 year old yo male POD1 s/p R cavovarus reconstruction by Dr. Soto. - Activity: BARBARA HAQUE - Wound: splint - Antibiotics: Completing 24 [...] Yun Cross MD Orthopaedic Surgery PGY-3 Pager: [phone] (Page 2BONE after 5pm and on weekends)[facility]06-14-2022 NoteHNO ID: [id number] Author: Lakisha Mccoy CRNA Service: ? Author Type: Nurse Warp Worker Type: Anesthesia Procedure Notes Filed: 09/20/2021 8:02 AM Note Text: ANESTHESIOLOGY PROCEDURE NOTE Airway General Information Procedure Start Time/Medication Administration: 09/20/2021 7:40 AM Patient location during procedure: OR Timeout Performed Pre-procedure: timeout performed Consent Obtained: Yes Patient identity confirmed: arm band and patient Staffing BIRTH CERTIFICATE CLERK: Lakisha Mccoy CRNA Performed by: JEANE Indications and Patient Condition Preoxygenated: yes Patient [...] September 20, 2021 TIME: 8:01 AM CSN: [id number] Clinic Foundation06-14-2022 NoteHNO ID: [id number] Author: Jorgito Galaviz, Service: ? Author Type: Resident Type: Anesthesia [...] September 20, 2021 TIME: 7:57 AM CSN: [id number] Clinic Foundation06-14-2022 NoteHNO ID: [id number] Author: Ayla Marquez MD Service: ? Author [...] September 20, 2021 TIME: 7:55 AM CSN: [id number] Popliteal catheter was performed with a posterior approach . Pt seen and case discussed with resident confirmed hale portions of the exam. agreed with above plan as mentioned in resident note. Popl. catheter was performed with out complications Will continue to follow [facility]ozKing[facility] [place]06-03-2022 Miscellaneous Notes* Telephone Encounter - Ofelia Colunga RN - 09/09/2021 11:13 AM EDT Spoke directly with patient regarding ordered labs needed for surgery. He stated he was going todayto [facility] to have drawn. documented in this encounterOhiohealth05-27-2022 Instructions* Patient Instructions* Nini Borja PA-C - 09/02/2021 11:15 AM EDT PATIENT PREOPERATIVE INSTRUCTIONS Milla Soto MD has scheduled you for your procedure at this surgery center: [facility] [place] Scheduling Office: [phone] --[address] [place] [address]. Please read below carefully for your personalized [...] Procedures: - YOU MUST HAVE A RESPONSIBLE PRACTICE CLINICIAN TAKE YOU HOME. A SUPERVISOR MULTIFOCAL LENS OR CONDUIT REAMER OPERATOR CANNOT BE MADE A RESPONSIBLE PRACTICE CLINICIAN. - We recommend that a responsible person [...] call the Sunday before. Your surgeon s mailing manager will tell you what time to call the office. - If you have not reached the departmental mailing manager by 5 P.M., call [phone] after 5 P.M. the day before your surgery. Please be aware that emergency situations arise, which may delay or change your surgical time. If this happens, we will notify you as soon as possible and regret any inconvenience. If you already have an Advance Directive, please fax a copy to [phone] or email to for it to be added to your chart. If you do not have an Advance Directive, you can find the appropriate form and more information at [email or web address]. We recommend that youcomplete the Advance Directive form found on the website and bring it with you the day of your surgery. It can be witnessed and scanned into your chart that day. GEREMIAS Dudleyally signed by Nini Borja PA-C at 09/02/2021 11:18 AM EDT documented in this encounterOhiohealth05-27-2022 History and physical note * Nini Borja PA-C - 09/02/2021 10:39 AM EDT PREANESTHESIA CONSULT CLINIC TELEHEALTH VISIT Patient has been identified by name and date of : Yes This is a virtual visit using [employer] video visit. It require patient-provider interaction for [...] fevers. Neuro: No history of TIA's, stroke, MILL TENDER WASHING tumor, impaired sensorium, hemiplegia, paraplegia or quadraplegia. +h/o brain aneurysm 2019 - followed with serial MRIs, resolved on most recent imaging without intervention +h/o vertigo - resolved Respiratory: No history of current cough or dyspnea, or pneumonia in the past 6 weeks. No history of respiratory/pulmonary symptoms or problems. Cardiovascular: No history of HTN requiring medication, no history of angina, CHF, [place], cardiac surgery or stents. Denies rest pain, [...] by surgeon- patient will complete @ [facility] prior to surgery. Planned Anesthetic: General Instructions Given to Patient: Patient given verbal instructions and voices comprehension and compliance. Copy sent electronically via My Chart, email, or mobile device. I spent more than 21-40 minutes bnri-fb-nynz with the patient and over half the time was devoted tocounseling and/or coordination of care. This is a virtual visit. It required patient-provider interaction for the medical decision making as documented above. SIGNATURE: Nini Borja PA-C PATIENT NAME: Sal Padilla DATE: September 02, 2021 TIME: 12:05 PM PAGER/CONTACT #: documented in this encounterOhiohealth05-19-2022 NoteHNO ID: [id number] Author: Milla Soto MD Service: ? Author [...] like to proceed with surgery. Milla Soto, [facility]05-19-2022 History of Present illness Narrative* Milla [...] surgery. Milla Soto MD documented in this encounterOhiohealth05-08-2022 NoteHNO ID: [id number] Author: Shirlene Braun Service: ? Author Type: Hydroblaster Type: Progress Notes Filed: 08/14/2021 7:09 AM [...] BY: Shirlene Braun August 14, 2021 7:09 [facility]05-08-2022 History of Present illness Narrative* Shirlene [...] 14, 2021 7:09 AM documented in this encounterOhiohealth05-07-2022 NoteHNO ID: [id number] Author: Milla Soto MD Service: ? Author Type: Physician Type: Progress Notes Filed: 08/13/2021 2:26 PM Note Text: Incision CDI Dry dressing changes Partial WB Vit D Fu 2 weeks for sutures, MR review, pick surgery date Milla Soto [facility]05-07-2022 History of Present illness Narrative* Milla Soto MD - 08/13/2021 2:25 PM EDT Incision CDI Dry dressing changes Partial WB Vit D Fu 2 weeks for sutures, MR review, pick surgery date Milla Soto MD documented in this encounterOhiohealth04-28-2022 NoteHNO ID: [id number] Author: Nina Degroot RN Service: ? Author Type: Registered Nurse Type: Nursing Progress Note Filed: 08/04/2021 9:02 AM Note Text: Oral airway removed, patient waking up more.[facility]04-28-2022 NoteHNO ID: [id number] Author: CHUCKY Woodward Service: ? Author Type: Lining Strap Closer Type: Anesthesia Procedure Notes Filed: 08/04/2021 8:09 [...] August 04, 2021 TIME: 8:08 AM CSN: [id number] Clinic [facility]04-21-2022 Miscellaneous Notes* Addendum Note - Milla Soto MD - 07/28/2021 2:37 PM EDT Addended by: MILLA SOTO on: 07/28/2021 02:37 PM Modules accepted: Orders documented in this encounterOhiohealth04-21-2022 NoteHNO ID: [id number] Author: Milla Soto MD Service: ? Author Type: Physician Type: Progress Notes Filed: 07/28/2021 2:37 PM Note Text: July 28, 2021 HPI: Sal Padilla is a 51 yo male who had foot surgery on right in [place] in December 2020. Reports a broken ankle [...] and alignment views PCP: Ayla Rodriguez MD [address] [place] [address] [place] [address] FELLOW / RESIDENT: No fellow or resident assisted in this office visit. M (more content not included)...[facility]04-21-2022 NoteHNO ID: [id number] Author: RT Uzma(R) Service: ? Author Type: [...] BY: RT Uzma(R) July 28, 2021 11:58 [facility]04-21-2022 History of Present illness Narrative* Milla Soto MD - 07/28/2021 11:59 AM EDT July 28, 2021 HPI: Sal Padilla is a 51 yo male who had foot surgery on right in [place] in December 2020.Reports a broken ankle in [...] and alignment views PCP: Ayla Rodriguez MD [address] [place] [address] [place] [address] FELLOW / RESIDENT: No fellow or resident assisted in this office visit. Milla Soto MD documented in this encounterOhiohealth04-21-2022 History of Present illness Narrative* Barney Mace, RT(R) - 07/28/2021 11:50 AM EDT Radiology [...] 28, 2021 11:58 AM [place] [address] History of Past illness Narrative* Problem Noted Date Resolved Date Abdominal pain, epigastric 03/23/200907/29 documented as of this encounter (statuses as of 08/13/2021) [address] History of Past illness Narrative* Problem Noted Date Resolved Date Abdominal pain, epigastric 03/23/200907/29 documented as of this encounter (statuses as of 08/15/2021) [address]15[address]2009 History of Past illness Narrative* Problem Noted Date Resolved Date Abdominal pain, epigastric 03/23/200907/29 documented as of this encounter (statuses as of 08/25/2021) [address]15[address]2009 History of Past illness Narrative* Problem Noted Date Resolved Date Abdominal pain, epigastric 03/23/200907/29 documented as of this encounter (statuses as of 09/02/2021) [address]15[address]2009 History of Past illness Narrative* Problem Noted Date Resolved Date Abdominal pain, epigastric 03/23/200907/29 documented as of this encounter (statuses as of 09/09/2021) [address]15[address]2009 History of Past illness Narrative* Problem Noted Date Resolved Date Abdominal pain, epigastric 03/23/200907/29 documented as of this encounter (statuses as of 09/27/2021) [address]15[address]2009 History of Past illness Narrative* Problem Noted Date Resolved Date Abdominal pain, epigastric 03/23/200907/29 documented as of this encounter (statuses as of 09/29/2021) [address]2009 History of Past illness Narrative* Problem Noted Date Resolved Date Abdominal pain, epigastric 03/23/200907/29 documented as of this encounter (statuses as of 09/30/2021) [place] [address] History of Past illness Narrative* Problem Noted Date Resolved Date Abdominal pain, epigastric 03/23/200907/29 documented as of this encounter (statuses as of 10/13/2021) [address]15[address]2009 History of Past illness Narrative* Problem Noted Date Resolved Date Abdominal pain, epigastric 03/23/200907/29 documented as of this encounter (statuses as of 10/27/2021) [address]15[address]2009 History of Past illness Narrative* Problem Noted Date Resolved Date Abdominal pain, epigastric 03/23/200907/29 documented as of this encounter (statuses as of 11/23/2021) [address]15[address]2009 History of Past illness Narrative* Problem Noted Date Resolved Date Abdominal pain, epigastric 03/23/200907/29 documented as of this encounter (statuses as of 11/24/2021) [address]15[address]2009 History of Past illness Narrative* Problem Noted Date Resolved Date Abdominal pain, epigastric 03/23/200907/29 documented as of this encounter (statuses as of 01/05/2022) [address]15[address]2009 History of Past illness Narrative* Problem Noted Date Resolved Date Abdominal pain, epigastric 03/23/200907/29 documented as of this encounter (statuses as of 01/24/2022) [address]15[address]2009 History of Past illness Narrative* Problem Noted Date Resolved Date Abdominal pain, epigastric 03/23/200907/29 documented as of this encounter (statuses as of 03/06/2022) [address]2009 History of Past illness Narrative* Problem Noted Date Resolved Date Abdominal pain, epigastric 03/23/200907/29 documented as of this encounter (statuses as of 06/08/2022) [facility]* Diagnosis Pain in joint involving right ankle and foot- Primary Peroneal tendinitis of right lower extremity Other enthesopathy of ankle and tarsus Pain in joint involving right ankle and foot Peroneal tendinitis of right lower extremity Other enthesopathy of ankle and tarsus documented in this encounter [facility]Evaluation noteNo assessment information availableWUniversity Hospitals Conne[facility] Work Phone: Evaluation note* Diagnosis Cavovarus deformity of foot- Primary Cavovarus deformity of foot, acquired documented in this encounter [facility]* Diagnosis Peroneal tendinitis of right lower extremity Other enthesopathy of ankle and tarsus documented in this encounter [facility] [facility] Diagnosis Acquired cavovarus deformity of foot, right- Primary documented [facility] this encounter [facility]* Diagnosis Preoperative examination- Primary Preoperative examination, unspecified Acquired cavovarus deformity of foot, right Hyperlipidemia, unspecified hyperlipidemia type Cerebral aneurysm Cerebral aneurysm, nonruptured BMI 34.0-34.9,adult Body Mass Index 34.0-34.9, adult Acquired cavovarus deformity of foot, right [facility] encounter [facility]* Diagnosis Acquired cavovarus deformity of foot, right- Primary Postop check Follow-up examination, following unspecified surgery [facility] Diagnosis Acquired cavovarus deformity of foot, right- Primary documented [facility]* Diagnosis Acquired cavovarus deformity of foot, right- Primary documented [facility]* Diagnosis Acquired cavovarus deformity of foot, right- Primary [facility]* Diagnosis Acquired cavovarus deformity of foot, right- Primary documented in this [facility]* Diagnosis Right ankle pain, unspecified chronicity- Primary [facility]* Diagnosis Acquired cavovarus deformity of foot, right- Primary documented in this [facility]* Diagnosis Acquired cavovarus deformity of foot, right- Primary documented [facility] this encounter [facility]* Diagnosis [...] of foot, right [facility] Pre-op evaluation- Primary Preoperative examination, [...] pain, unspecified chronicity documented in this encounter [facility]* Diagnosis [...] pain, unspecified chronicity documented in this encounter [facility] note* Diagnosis Pre-op evaluation- Primary Preoperative [...] of foot, right documented in this encounter [facility] note* Diagnosis Pre-op evaluation- Primary Preoperative [...] ankle and tarsus documented in this encounter [facility] note* Diagnosis Pre-op evaluation- Primary Preoperative [...] of foot, right [facility]* Diagnosis Pain in joint involving right ankle and foot Preoperative examination- Primary Preoperative examination, unspecified Acquired cavovarus deformity of foot, right Hyperlipidemia, unspecified hyperlipidemia type Cerebral aneurysm Cerebral aneurysm, nonruptured BMI 34.0-34.9,adult Body Mass Index 34.0-34.9, adult [facility] Diagnostic Procedure Only (Routine) - Pending Review Specialty Diagnoses / Procedures Referred By Kavya cohn Referred To Contact XR IMAGING Diagnoses Pain in joint involving right ankle and foot Peroneal tendinitis of right lower extremity Procedures XR CALCANEUS 2V AXIAL/LAT RIGHT RADEX CALCANEUS MINIMUM 2 VIEWS Milla Soto MD [address] [place] [address] Xr Imaging Referral ID Status Reason Start Date Expiration Date Visits Requested Visits Authorized [id number] Pending Review Auto-Generat ed Referral 07/28/2021 08/27/2022 1 1 * MRI/CT (Routine) - Additional Clinical Info Needed Specialty Diagnoses / Procedures Referred By Kavya cohn Referred To Contact MR IMAGING Diagnoses Peroneal tendinitis of right lower extremity Procedures MRI ANKLE WO IVCON RT MRI ANY JT LOWER EXTREM W/O CONTRAST MATRL Milla Soto MD [address] [place] [address] Mr Imaging Referral ID Status Reason Start Date Expiration Date Visits Requested Visits Authorized [id number] Additional Clinical Info Needed Auto-Generat ed Referral 07/28/2021 08/27/2022 1 1 * Diagnostic Procedure Only (Routine) - Closed Specialty Diagnoses / Procedures Referred By Contac t Referred To Contact XR IMAGING Diagnoses Pain in joint involving right ankle and foot Procedures XR FOOT GENERAL 3V AP/LAT/OBL RIGHT RADEX FOOT COMPLETE MINIMUM 3 VIEWS Milla Soto MD [address] [place] [address] Xr Imaging Referral ID Status Reason Start Date Expiration Date V isits Requested Visits Authorized [id number] Closed Auto-Generate d Referral 07/28/2021 08/27/2022 1 1 * Diagnostic Procedure Only (Routine) - Closed Specialty Diagnoses / Procedures Referred By Contac t Referred To Contact XR IMAGING Diagnoses Pain in joint involving right ankle and foot Procedures XR ANKLE GENERAL 3V AP/LAT/OBL RIGHT RADEX ANKLE COMPLETE MINIMUM 3 VIEWS Milla Soto MD [address] [place] [address] Xr Imaging Referral ID Status Reason Start Date Expiration Date V isits Requested Visits Authorized [id number] Closed Auto-Generate d Referral 07/28/2021 08/27/2022 1 1 [facility] for referral (narrative)* Diagnostic Procedure Only (Routine) - Authorized Specialty Diagnoses / Procedures Referred By Contac t Referred To Contact XR IMAGING Diagnoses Acquired cavovarus deformity of foot, right Procedures XR ANKLE GENERAL 3V AP/LAT/OBL RIGHT RADEX ANKLE COMPLETE MINIMUM 3 VIEWS Milla Soto MD [address] [place] [address] Xr Imaging Referral ID Status Reason Start Date Expiration Date Visits Requested Visits Authorized [id number] Authorized Auto-Generat ed Referral 10/13/2021 11/12/2022 1 1 * Diagnostic Procedure Only (Routine) - Authorized Specialty Diagnoses / Procedures Referred By Contac t Referred To Contact XR IMAGING Diagnoses Acquired cavovarus deformity of foot, right Procedures XR FOOT GENERAL 3V AP/LAT/OBL RIGHT RADEX FOOT COMPLETE MINIMUM 3 VIEWS Milla Soto MD [address] [place] [address] Xr Imaging Referral ID Status Reason Start Date Expiration Date Visits Requested Visits Authorized [id number] Authorized Auto-Generat ed Referral 10/13/2021 11/12/2022 1 1 [facility] for referral (narrative)* Diagnostic Procedure Only (Routine) - Pending Review Specialty Diagnoses / Procedures Referred By Contac t Referred To Contact XR IMAGING Diagnoses Acquired cavovarus deformity of foot, right Procedures XR ANKLE GENERAL 3V AP/LAT/OBL RIGHT RADEX ANKLE COMPLETE MINIMUM 3 VIEWS Julio Kumari PA-C [address] [place] [address] Xr Imaging Referral ID Status Reason Start Date Expiration Date Visits Requested Visits Authorized [id number] Pending Review Auto-Generat ed Referral 11/23/2021 12/23/2022 1 1 * Diagnostic Procedure Only (Routine) - Pending Review Specialty Diagnoses / Procedures Referred By Contac t Referred To Contact XR IMAGING Diagnoses Acquired cavovarus deformity of foot, right Procedures XR FOOT GENERAL 3V AP/LAT/OBL RIGHT RADEX FOOT COMPLETE MINIMUM 3 VIEWS Julio Kumari PA-C [address] [place] [address] Xr Imaging Referral ID Status Reason Start Date Expiration Date Visits Requested Visits Authorized [id number] Pending Review Auto-Generat ed Referral 11/23/2021 12/23/2022 1 1 [facility] for referral (narrative)* Diagnostic Procedure Only (Routine) - Authorized Specialty Diagnoses / Procedures Referred By Contac t Referred To Contact XR IMAGING Diagnoses Right ankle pain, unspecified chronicity Procedures XR ANKLE GENERAL 3V AP/LAT/OBL RIGHT RADEX ANKLE COMPLETE MINIMUM 3 VIEWS Milla Soto MD [address] [place] [address] Xr Imaging Referral ID Status Reason Start Date Expiration Date Visits Requested Visits Authorized [id number] Authorized Auto-Generat ed Referral 01/05/2022 02/04/2023 1 1 * - Pending Review Specialty Diagnoses / Procedures Referred By Contac t Referred To Contact Physical Therapy Diagnoses Right ankle pain, unspecified chronicity Procedures CONSULT TO PHYSICAL THERAPY Milla Soto MD [address] [place] [address] Referral ID Status Reason Start Date Expiration Date V isits Requested Visits Authorized [id number] Pending Review 01/05/2022 04/05/2022 1 1 * Diagnostic Procedure Only (Routine) - Closed Specialty Diagnoses / Procedures Referred By Contac t Referred To Contact XR IMAGING Diagnoses Right ankle pain, unspecified chronicity Procedures XR FOOT GENERAL 3V AP/LAT/OBL RIGHT RADEX FOOT COMPLETE MINIMUM 3 VIEWS Ofelia Clay PA-C [address] [place] [address] Xr Imaging Referral ID Status Reason Start Date Expiration Date V isits Requested Visits Authorized [id number] Closed Auto-Generate d Referral 01/05/2022 02/04/2023 1 1 [facility] for referral (narrative)* Diagnostic Procedure Only (Routine) - Pending Review Specialty Diagnoses / Procedures Referred By Contac t Referred To Contact XR IMAGING Diagnoses Acquired cavovarus deformity of foot, right Procedures XR ANKLE GENERAL 3V AP/LAT/OBL RIGHT RADEX ANKLE COMPLETE MINIMUM 3 VIEWS Milla Soto MD [address] [place] [address] Xr Imaging Referral ID Status Reason Start Date Expiration Date Visits Requested Visits Authorized [id number] Pending Review Auto-Generat ed Referral 2 04/05/2023 1 1 * - Pending Review Specialty Diagnoses / Procedures Referred By Contac t Referred To Contact Physical Therapy Diagnoses Acquired cavovarus deformity of foot, right Procedures CONSULT TO PHYSICAL THERAPY Milla Soto MD [address] [facility] [place] [address] Referral ID Status Reason Start Date Expiration Date V isits Requested Visits Authorized [id number] Pending Review 03/06/2022 06/04/2022 1 1 * Diagnostic Procedure Only (Routine) - Pending Review Specialty Diagnoses / Procedures Referred By Contac t Referred To Contact XR IMAGING Diagnoses Acquired cavovarus deformity of foot, right Procedures XR ANKLE GENERAL 3V AP/LAT/OBL RIGHT RADEX ANKLE COMPLETE MINIMUM 3 VIEWS Milla Soto MD [address] [place] [address] Xr Imaging Referral ID Status Reason Start Date Expiration Date Visits Requested Visits Authorized [id number] Pending Review Auto-Generat ed Referral 2 04/05/2023 1 1 [facility] for referral (narrative)* - Pending Review Specialty Diagnoses / Procedures Referred By Contac t Referred To Contact Physical Therapy Diagnoses Acquired cavovarus deformity of foot, right Procedures CONSULT TO PHYSICAL THERAPY Milla Soto MD [address] [place] [id number] Referral ID Status Reason Start Date Expiration Date V isits Requested Visits Authorized [id number] Pending Review 06/08/2022 09/06/2022 1 1 [facility] for referral (narrative)* Diagnostic Procedure Only (Routine) - Closed Specialty Diagnoses / Procedures Referred By Contac t Referred To Contact XR IMAGING Diagnoses Acquired cavovarus deformity of foot, right Procedures XR ANKLE GENERAL 3V AP/LAT/OBL RIGHT RADEX ANKLE COMPLETE MINIMUM 3 VIEWS Milla Soto MD [address] [place] [id number] Xr Imaging [id number] Referral ID Status Reason Start Date Expiration Date V isits Requested Visits Authorized [id number] Closed Auto-Generate d Referral 03/06/2022 04/05/2023 1 1 [facility] for referral (narrative)* Diagnostic Procedure Only (Routine) - Closed Specialty Diagnoses / Procedures Referred By Contac t Referred To Contact XR IMAGING Diagnoses Right ankle pain, unspecified chronicity Procedures XR FOOT GENERAL 3V AP/LAT/OBL RIGHT RADEX FOOT COMPLETE MINIMUM 3 VIEWS Ofelia Clay PA-C [address] [place] [id number] Xr Imaging [id number] Referral ID Status Reason Start Date Expiration Date V isits Requested Visits Authorized [id number] Closed Auto-Generate d Referral 01/05/2022 02/04/2023 1 1 [facility] for referral (narrative)* Diagnostic Procedure Only (Routine) - Closed Specialty Diagnoses / Procedures Referred By Contac t Referred To Contact XR IMAGING Diagnoses Right ankle pain, unspecified chronicity Procedures XR FOOT GENERAL 3V AP/LAT/OBL RIGHT RADEX FOOT COMPLETE MINIMUM 3 VIEWS Milla Soto MD [address] [place] [id number] Xr Imaging [place] [address] Referral ID Status Reason Start Date Expiration Date V isits Requested Visits Authorized [id number] Closed Auto-Generate d Referral 03/01/2022 03/31/2023 1 1 * Diagnostic Procedure Only (Routine) - Closed Specialty Diagnoses / Procedures Referred By Contac t Referred To Contact XR IMAGING Diagnoses Right ankle pain, unspecified chronicity Procedures XR ANKLE GENERAL 3V AP/LAT/OBL RIGHT RADEX ANKLE COMPLETE MINIMUM 3 VIEWS Milla Soto MD [address] [place] [address] Xr Imaging [place] [address] Referral ID Status Reason Start Date Expiration Date V isits Requested Visits Authorized [id number] Closed Auto-Generate d Referral 01/05/2022 02/04/2023 1 1 [facility] for referral (narrative)* Diagnostic Procedure Only (Routine) - Closed Specialty Diagnoses / Procedures Referred By Contac t Referred To Contact XR IMAGING Diagnoses Acquired cavovarus deformity of foot, right Procedures XR ANKLE GENERAL 3V AP/LAT/OBL RIGHT RADEX ANKLE COMPLETE MINIMUM 3 VIEWS Julio Kumari PA-C [address] [place] [phone] [place] [address] Referral ID Status Reason Start Date Expiration Date V isits Requested Visits Authorized [id number] Closed Auto-Generate d Referral 11/23/2021 12/23/2022 1 1 * Diagnostic Procedure Only (Routine) - Closed Specialty Diagnoses / Procedures Referred By Contac t Referred To Contact XR IMAGING Diagnoses Acquired cavovarus deformity of foot, right Procedures XR FOOT GENERAL 3V AP/LAT/OBL RIGHT RADEX FOOT COMPLETE MINIMUM 3 VIEWS Julio Kumari PA-C [address] [place] [phone] [place] [address] Referral ID Status Reason Start Date Expiration Date V isits Requested Visits Authorized [id number] Closed Auto-Generate d Referral 11/23/2021 12/23/2022 1 1 [facility] for referral (narrative)* Diagnostic Procedure Only (Routine) - Closed Specialty Diagnoses / Procedures Referred By Contac t Referred To Contact XR IMAGING Diagnoses Acquired cavovarus deformity of foot, right Procedures XR ANKLE GENERAL 3V AP/LAT/OBL RIGHT RADEX ANKLE COMPLETE MINIMUM 3 VIEWS Milla Soto MD [address] [place] [address] Xr Imaging [id number] Referral ID Status Reason Start Date Expiration Date V isits Requested Visits Authorized [id number] Closed Auto-Generate d Referral 10/13/2021 11/12/2022 1 1 * Diagnostic Procedure Only (Routine) - Closed Specialty Diagnoses / Procedures Referred By Contac t Referred To Contact XR IMAGING Diagnoses Acquired cavovarus deformity of foot, right Procedures XR FOOT GENERAL 3V AP/LAT/OBL RIGHT RADEX FOOT COMPLETE MINIMUM 3 VIEWS Milla Soto MD [address] [facility] [place] [phone] [place] [address] Referral ID Status Reason Start Date Expiration Date V isits Requested Visits Authorized [id number] Closed Auto-Generate d Referral 10/13/2021 11/12/2022 1 1 [facility] for referral (narrative)* Diagnostic Procedure Only (Routine) - Closed Specialty Diagnoses / Procedures Referred By Contac t Referred To Contact XR IMAGING Diagnoses Pain in joint involving right ankle and foot Procedures XR FOOT GENERAL 3V AP/LAT/OBL RIGHT RADEX FOOT COMPLETE MINIMUM 3 VIEWS Milla Soto MD [address] [facility] [place] [address] Xr Imaging [place] [facility] Referral ID Status Reason Start Date Expiration Date V isits Requested Visits Authorized [id number] Closed Auto-Generate d Referral 07/28/2021 08/27/2022 1 1 * Diagnostic Procedure Only (Routine) - Closed Specialty Diagnoses / Procedures Referred By Contac t Referred To Contact XR IMAGING Diagnoses Pain in joint involving right ankle and foot Procedures XR ANKLE GENERAL 3V AP/LAT/OBL RIGHT RADEX ANKLE COMPLETE MINIMUM 3 VIEWS Milla Soto MD [address] [place] [address] Xr Imaging [place] [address] Referral ID Status Reason Start Date Expiration Date V isits Requested Visits Authorized [id number] Closed Auto-Generate d Referral 07/28/2021 08/27/2022 1 1 [facility] for referral (narrative)No reason for referral information [facility] Work Phone: Reason for visit Narrative* Diagnostic Procedure Only (Routine) - Closed Specialty Diagnoses / Procedures Referred By Contac t Referred To Contact XR IMAGING Diagnoses Acquired cavovarus deformity of foot, right Procedures XR ANKLE GENERAL 3V AP/LAT/OBL RIGHT RADEX ANKLE COMPLETE MINIMUM 3 VIEWS Milla Soto MD [address] [place] [address] Xr Imaging [id number] Referral ID Status Reason Start Date Expiration Date V isits Requested Visits Authorized [id number] Closed Auto-Generate d Referral 03/06/2022 04/05/2023 1 1 [facility] for visit Narrative* Diagnostic Procedure Only (Routine) - Closed Specialty Diagnoses / Procedures Referred By Kavya t Referred To Contact XR IMAGING Diagnoses Pain in joint involving right ankle and foot Peroneal tendinitis of right lower extremity Procedures XR CALCANEUS 2V AXIAL/LAT RIGHT RADEX CALCANEUS MINIMUM 2 VIEWS Milla Soto MD [address] [place] [address] Xr Imaging [id number] Referral ID Status Reason Start Date Expiration Date V isits Requested Visits Authorized [id number] Closed Auto-Generate d Referral 07/28/2021 08/27/2022 1 1 [facility] Summary Purpose Family History No Family History Records FoundNo Family History Records FoundNo Family History Records FoundNo Family History Records FoundNo Family History Records Found Advance Directives No Advanced Directives Records Found Advance Directive Response Recorded Date/ Time Living Will No May 03 11:13am Power of Dedicated Truck Driver No May 03, 2019 11:13am Documents on File Type Date Recorded 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 Advance Directive(s) 08/04/2021 6:27 AM Advance Directive(s) 07/29/2021 9:33 AM Documents on File Type Date Recorded 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 Advance Directive(s) 08/04/2021 6:27 AM Advance Directive(s) 07/29/2021 9:33 AM Documents on File Type Date Recorded 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 Advance Directive(s) 09/06/2021 5:58 PM Advance Directive(s) 08/04/2021 6:27 AM Advance Directive(s) 07/29/2021 9:33 AM Documents on File Type Date Recorded 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 No March 09, 2024 1:06am Living Will No May 10 2:44am Do you have a Healthcare Power of Dedicated Truck Driver? No May 10, 2024 2:44am Living Will No April 09 1:09am Do you have a Healthcare Power of Dedicated Truck Driver? No April 09, 2024 1:09am Living Will No June 07, 2024 2:07am Do you have a Healthcare Power of Dedicated Truck Driver? No June 07, 2024 2:07am Advance Directive Response Recorded Date/ Time Living Will No May 10 2:44am Do you have a Healthcare Power of Dedicated Truck Driver? No May 10, 2024 2:44am Living Will No July 08, 2024 12:44am Do you have a Healthcare Power of Dedicated Truck Driver? No July 08, 2024 12:44am Living Will No June 07, 2024 2:07am Do you have a Healthcare Power of Dedicated Truck Driver? No June 07, 2024 2:07am Advance Directive Response Recorded Date/ Time Living Will No May 10 2:44am Do you have a Healthcare Power of Dedicated Truck Driver? No May 10, 2024 2:44am Living Will No July 08, 2024 12:44am Do you have a Healthcare Power of Dedicated Truck Driver? No July 08, 2024 12:44am Living Will No June 07, 2024 2:07am Do you have a Healthcare Power of Dedicated Truck Driver? No June 07, 2024 2:07am Living Will No August 07, 2024 12 :16am Do you have a Healthcare Power of Dedicated Truck Driver? No August 07, 2024 12:16am Advance Directive Response Recorded Date/ Time Living Will No July 08, 2024 12:44am Do you have a Healthcare Power of Dedicated Truck Driver? No July 08, 2024 12:44am Living Will No June 07, 2024 2:07am Do you have a Healthcare Power of Dedicated Truck Driver? No June 07, 2024 2:07am Living Will No August 07, 2024 12 :16am Do you have a Healthcare Power of Dedicated Truck Driver? No August 07, 2024 12:16am Advance Directive Response Recorded Date/ Time Living Will No July 08, 2024 12:44am Do you have a Healthcare Power of Dedicated Truck Driver? No July 08, 2024 12:44am Living Will No August 07, 2024 12 :16am Do you have a Healthcare Power of Dedicated Truck Driver? No August 07, 2024 12:16am Advance Directive Response Recorded Date/ Time Living Will No July 08, 2024 12:44am Do you have a Healthcare Power of Dedicated Truck Driver? No July 08, 2024 12:44am Living Will No August 07, 2024 12 :16am Do you have a Healthcare Power of Dedicated Truck Driver? No August 07, 2024 12:16am Living Will No September 09, 2024 1 2:03am Do you have a Healthcare Power of Dedicated Truck Driver? No September 09, 2024 12:03am Advance Directive Response Recorded Date/ Time Living Will No August 07, 2024 12 :16am Do you have a Healthcare Power of Dedicated Truck Driver? No August 07, 2024 12:16am Living Will No September 09, 2024 1 2:03am Do you have a Healthcare Power of Dedicated Truck Driver? No September 09, 2024 12:03am Chief Complaint and Reason for Visit Chief [...] OBESITY July 17, 2024 10: 26am OBESITY May 15th, 2025 10:[address]/SINUS COMPLAINT September 03, 2024 [...] to R knee October 06, 2024 12:43pm OBESITY October 09, 2024 12:15 pm LOW BACK PAIN. RX HERE October 27, 2024 1 1:30am HLD October 29, 2024 7:06 am HLD October 29, 2024 5:24 pm Chief Complaint Admit Date OBESITY August 21, 2024 10:[address]/SINUS COMPLAINT September 03, 2024 5:34p m pain in LB with radiation to R knee October 06, 2024 12:43pm OBESITY October 09, 2024 12:15 pm HLD October 29, 2024 7:06 am HLD October 29, 2024 5:24 pm OBESITY November 18, 2024 11 :25am LOW BACK PAIN. RX HERE November 24, 2024 11:30am Reason for Referral Specialty Diagnoses / Procedures Referred By Contac t Referred To Contact MR IMAGING Diagnoses Peroneal tendinitis of right lower extremity Procedures MRI ANKLE WO IVCON RT MRI ANY JT LOWER EXTREM W/O CONTRAST Milla Rabago MD [address] [place] [address] Mr Imaging Referral ID Status Reason Start Date Expiration Date V isits Requested Visits Authorized [id number] Closed Auto-Generate d Referral 07/28/2021 08/27/2022 1 1 Health Concerns Infection Onset Date Last Indicated Resolved Time COVID-19 Rule-Out 09/20/2021 09/20/2021 09/22/2021 3:12 PM EDT Additional Source Comments (unrecognized sect ion and content) No Status Records FoundNo Status Records FoundNo Status Records FoundNo Status Records FoundNo Status Records Found INFORMATION SOURCE (unrecogn ized section and content) DATE CREATED AUTHOR [facility]22/2020 [facility] DATE CREATED AUTHOR AUTHOR'S ORGANIZ ATION 08/12/2020 [facility] DATE CREATED AUTHOR AUTHOR'S ORGANIZ ATION 06/26/2021 [facility] DATE CREATED AUTHOR AUTHOR'S ORGANIZ ATION 06/09/2022 [facility] DATE CREATED AUTHOR AUTHOR'S ORGANIZ ATION 02/19/2025 [facility] Source Comments (unrecognize d section and content) In the event this informatio n is protected by the Federal Confidentiality of Alcohol and Drug Abuse Patient Records regulations: The Federal rules restrict any use of the information to criminally investigate or prosecute any alcohol or drug abuse patient.OhiohealthIn the event this information is protected by the Federal Confidentiality of Alcohol and Drug Abuse Patient Records regulations: The Federal rules restrict any use of the information to criminally investigate or prosecute any alcohol or drug abuse patient.OhiohealthIn the event this information is protected by the Federal Confidentiality of Alcohol and Drug Abuse Patient Records regulations: The Federal rules restrict any use of the information to criminally investigate or prosecute any alcohol or drug abuse patient.[place]healthIn the event this information is protected by the Federal Confidentiality of Alcohol and Drug Abuse Patient Records regulations: The Federal rules restrict any use of the information to criminally investigate or prosecute any alcohol or drug abuse patient.[facility]healthIn the event this information is protected by the Federal Confidentiality of Alcohol and Drug Abuse Patient Records regulations: The Federal rules restrict any use of the information to criminally investigate or prosecute any alcohol or drug abuse patient.[facility]healthIn the event this information is protected by the Federal Confidentiality of Alcohol and Drug Abuse Patient Records regulations: The Federal rules restrict any use of the information to criminally investigate or prosecute any alcohol or drug abuse patient.[facility]healthIn the event this information is protected by the Federal Confidentiality of Alcohol and Drug Abuse Patient Records regulations: The Federal rules restrict any use of the information to criminally investigate or prosecute any alcohol or drug abuse patient.[place]healthIn the event this information is protected by the Federal Confidentiality of Alcohol and Drug Abuse Patient Records regulations: The Federal rules restrict any use of the information to criminally investigate or prosecute any alcohol or drug abuse patient.[facility]healthIn the event this information is protected by the Federal Confidentiality of Alcohol and Drug Abuse Patient Records regulations: The Federal rules restrict any use of the information to criminally investigate or prosecute any alcohol or drug abuse patient.[facility]healthIn the event this information is protected by the Federal Confidentiality of Alcohol and Drug Abuse Patient Records regulations: The Federal rules restrict any use of the information to criminally investigate or prosecute any alcohol or drug abuse patient.[facility]healthIn the event this information is protected by the Federal Confidentiality of Alcohol and Drug Abuse Patient Records regulations: The Federal rules restrict any use of the information to criminally investigate or prosecute any alcohol or drug abuse patient.[facility]healthIn the event this information is protected by the Federal Confidentiality of Alcohol and Drug Abuse Patient Records regulations: The Federal rules restrict any use of the information to criminally investigate or prosecute any alcohol or drug abuse patient.[facility]healthIn the event this information is protected by the Federal Confidentiality of Alcohol and Drug Abuse Patient Records regulations: The Federal rules restrict any use of the information to criminally investigate or prosecute any alcohol or drug abuse patient.[place]healthIn the event this information is protected by the Federal Confidentiality of Alcohol and Drug Abuse Patient Records regulations: The Federal rules restrict any use of the information to criminally investigate or prosecute any alcohol or drug abuse patient.[place]healthIn the event this information is protected by the Federal Confidentiality of Alcohol and Drug Abuse Patient Records regulations: The Federal rules restrict any use of the information to criminally investigate or prosecute any alcohol or drug abuse patient.[facility]healthIn the event this information is protected by the Federal Confidentiality of Alcohol and Drug Abuse Patient Records regulations: The Federal rules restrict any use of the information to criminally investigate or prosecute any alcohol or drug abuse patient.[facility]healthIn the event this information is protected by the Federal Confidentiality of Alcohol and Drug Abuse Patient Records regulations: The Federal rules restrict any use of the information to criminally investigate or prosecute any alcohol or drug abuse patient.[facility]healthIn the event this information is protected by the Federal Confidentiality of Alcohol and Drug Abuse Patient Records regulations: The Federal rules restrict any use of the information to criminally investigate or prosecute any alcohol or drug abuse patient.[facility]healthIn the event this information is protected by the Federal Confidentiality of Alcohol and Drug Abuse Patient Records regulations: The Federal rules restrict any use of the information to criminally investigate or prosecute any alcohol or drug abuse patient.[facility]healthIn the event this information is protected by the Federal Confidentiality of Alcohol and Drug Abuse Patient Records regulations: The Federal rules restrict any use of the information to criminally investigate or prosecute any alcohol or drug abuse patient.[facility]healthIn the event this information is protected by the Federal Confidentiality of Alcohol and Drug Abuse Patient Records regulations: The Federal rules restrict any use of the information to criminally investigate or prosecute any alcohol or drug abuse patient.[facility]healthIn the event this information is protected by the Federal Confidentiality of Alcohol and Drug Abuse Patient Records regulations: The Federal rules restrict any use of the information to criminally investigate or prosecute any alcohol or drug abuse patient.[facility] ClinicIn the event this information is protected by the Federal Confidentiality of Alcohol and Drug Abuse Patient Records regulations: The Federal rules restrict any use of the information to criminally investigate or prosecute any alcohol or drug abuse patient.[facility]healthIn the event this information is protected by the Federal Confidentiality of Alcohol and Drug Abuse Patient Records regulations: The Federal rules restrict any use of the information to criminally investigate or prosecute any alcohol or drug abuse patient.[facility] Reason for Visit (unrecogniz ed section and content) Reason Comments New Pain Reason Comments Follow Up Post Op Reason Comments Radiology MRI RT ANKLE W/O Specialty Diagnoses / Procedures Referred By Kavya cohn Referred To Contact MR IMAGING Diagnoses Peroneal tendinitis of right lower extremity Procedures MRI ANKLE WO IVCON RT MRI ANY JT LOWER EXTREM W/O CONTRAST Milla Rabago MD [address] [place] [address] Mr Imaging Referral ID Status Reason Start Date Expiration Date V isits Requested Visits Authorized [id number] Closed Auto-Generate d Referral 07/28/2021 08/27/2022 1 [...] COMPLETE MINIMUM 3 VIEWS Ofelia Clay PA-C [address] [place] [address] X[facility] [place] [address] Referral ID Status Reason Start Date Expiration Date V isits Requested Visits Authorized [id number] Closed Auto-Generate d Referral 01/05/2022 02/04/2023 1 1 Reason Comments Radio Gen RMP Specialty Diagnoses / Procedures Referred By Contac t Referred To Contact XR IMAGING Diagnoses Right ankle pain, unspecified chronicity Procedures XR ANKLE GENERAL 3V AP/LAT/OBL RIGHT RADEX ANKLE COMPLETE MINIMUM 3 VIEWS Milla Soto MD [address] [facility] [place] [address] X[facility] [place] [address] Referral ID Status Reason Start Date Expiration Date V isits Requested Visits Authorized [id number] Closed Auto-Generate d Referral 01/05/2022 02/04/2023 1 1 Specialty Diagnoses / Procedures Referred By Contac t Referred To Contact XR IMAGING Diagnoses Acquired cavovarus deformity of foot, right Procedures XR FOOT GENERAL 3V AP/LAT/OBL RIGHT RADEX FOOT COMPLETE MINIMUM 3 VIEWS Julio Kumari PA-C [address] [facility] [address] Xr Imaging [id number] Referral ID Status Reason Start Date Expiration Date V isits Requested Visits Authorized [id number] Closed Auto-Generate d Referral 11/23/2021 12/23/2022 1 1 Specialty Diagnoses / Procedures Referred By Contac t Referred To Contact XR IMAGING Diagnoses Acquired cavovarus deformity of foot, right Procedures XR ANKLE GENERAL 3V AP/LAT/OBL RIGHT RADEX ANKLE COMPLETE MINIMUM 3 VIEWS Milla Soto MD [address] [facility] [place] [id number] X[id number] Referral ID Status Reason Start Date Expiration Date V isits Requested Visits Authorized [id number] Closed Auto-Generate d Referral 10/13/2021 11/12/2022 1 1 Specialty Diagnoses / Procedures Referred By Contac t Referred To Contact XR IMAGING Diagnoses Pain in joint involving right ankle and foot Procedures XR FOOT GENERAL 3V AP/LAT/OBL RIGHT RADEX FOOT COMPLETE MINIMUM 3 VIEWS Milla Soto MD [address] [place] [address] [place] [address] Referral ID Status Reason Start Date Expiration Date V isits Requested Visits Authorized [id number] Closed Auto-Generate d Referral 07/28/2021 08/27/2022 1 1 Care Teams (unrecognized sec tion and content) Commercial Loan [employer]or Relationship Specialty Start Date End Date Sal Arceo MD [address] [place], [place] [address] [phone] PCP - General Family Practice 07/28/21 Commercial Loan Processor Relationship Specialty Start Date End Date Sal Arceo MD [address] [place] [address] PCP - General Family Practice 07/28/21 Commercial Loan Processor Relationship Specialty Start Date End Date Sal Arceo MD [address] [facility] [place] [address] PCP - General Family Practice 07/28/21 Commercial Loan Processor Relationship Specialty Start Date End Date Sal Arceo MD [address] [facility] [place] [address] PCP - General Family Practice 07/28/21 Commercial Loan Processor Relationship Specialty Start Date End Date Sal Arceo MD [address] [facility] [place] [address] PCP - General Family Practice 07/28/21 Commercial Loan Processor Relationship Specialty Start Date End Date Sal Arceo MD [address] [facility] [place] [address] PCP - General Family Practice 07/28/21 Commercial Loan Processor Relationship Specialty Start Date End Date Sal Arceo MD [address] [place] [address] PCP - General Family Practice 07/28/21 Commercial Loan Processor Relationship Specialty Start Date End Date Sal Arceo MD [address] [place] [address] PCP - General Family Practice 07/28/21 Commercial Loan Processor Relationship Specialty Start Date End Date Sal Arceo MD [address] [place] [address] PCP - General Family Practice 07/28/21 Commercial Loan Processor Relationship Specialty Start Date End Date Sal Arceo MD [address] [place] [address] PCP - General Family Practice 07/28/21 Commercial Loan Processor Relationship Specialty Start Date End Date Sal Arceo MD [address] [place] [address] PCP - General Family Practice 07/28/21 Commercial Loan Processor Relationship Specialty Start Date End Date Sal Arceo MD [address] [place] [address] PCP - General Family Medicine 07/28/21 Commercial Loan Processor Relationship Specialty Start Date End Date Sal Arceo MD [address] [place] [address] PCP - General Family Medicine 07/28/21 Commercial Loan Processor Relationship Specialty Start Date End Date Sal Arceo MD [address] [place] [address] PCP - General Family Medicine 07/28/21 Commercial Loan Processor Relationship Specialty Start Date End Date Sal Arceo MD [address] [place] [address] PCP - General Family Medicine 07/28/21 Team [...] Care Provider, Attending Provider, Referring Provider Active Commercial Loan Processor Relationship Specialty Start Date End Date Sal Arceo MD [address] [place] [address] PCP - General Family Medicine 07/28/21 Commercial Loan Processor Relationship Specialty Start Date End Date Sal Arceo MD [address] [place] [address] PCP - General Family Medicine 07/28/21 Commercial Loan Processor Relationship Specialty Start Date End Date Sal Arceo MD [address] [place], [place] [address] PCP - General Family Medicine 07/28/21 Commercial Loan Processor Relationship Specialty Start Date End Date Sal Arceo MD [address] [place] [address] PCP - General Family Medicine 07/28/21 Commercial Loan Processor Relationship Specialty Start Date End Date Sal Arceo MD [address] [place] [address] PCP - General Family Medicine 07/28/21 Commercial Loan Processor Relationship Specialty Start Date End Date Sal Arceo MD [address] [place] [address] PCP - General Family Medicine 07/28/21 Team [...] October 06, 2024 End: October 06, 2024 Team Status: Active Member Role/Relationship Status Dates Dr. Sal Arceo MD Primary Care Provider Acti ve Start: October 09, 2024 Dr. Sal Arceo MD Attending Provider Active Start: October 09, 2024 Dr. Sal Arceo MD Referring Provider Active Start: October 09, 2024 Team Status: Active Member Role/Relationship Status Dates Dr. Sal Arceo MD Primary Care Provider Acti ve Start: October 27, 2024 Dr. Sal Arceo MD Attending Provider Active Start: October 27, 2024 Dr. Sal Arceo MD Referring Provider Active Start: October 27, 2024 Team Status: Inactive Member Role/Relationship Status Dates Dr. Sal Arceo MD Primary Care Provider Acti ve Start: October 29, 2024 End: October 29, 2024 Dr. Sal Arceo MD Attending Provider Active Start: October 29, 2024 End: October 29, 2024 Dr. Sal Arceo MD Referring Provider Active Start: October 29, 2024 End: October 29, 2024 Team Status: Active Member Role/Relationship Status Dates Dr. Sal Arceo MD Primary Care Provider Acti ve Start: October 29, 2024 Dr. Sal Arceo MD Referring Provider Active Start: October 29, 2024 Dr. Sal Arceo MD Other Provider Active Start: October 29, 2024 Dr. Merritt Sen MD Attending Provider Active S tart: October 29, 2024 Team Status: Inactive Member Role/Relationship Status Dates Dr. Sal Arceo MD Primary Care Provider Acti ve Start: October 09, 2024 End: November 06, 2024 Dr. Sal Arceo MD Attending Provider Active Start: October 09, 2024 End: November 06, 2024 Dr. Sal Arceo MD Referring Provider Active Start: October 09, 2024 End: November 06, 2024 Team Status: Inactive Member Role/Relationship [...] October 06, 2024 End: October 06, 2024 Team Status: Inactive Member Role/Relationship Status Dates Dr. Sal Arceo MD Primary Care Provider Acti ve Start: October 09, 2024 End: November 06, 2024 Dr. Sal Arceo MD Attending Provider Active Start: October 09, 2024 End: November 06, 2024 Dr. Sal Arceo MD Referring Provider Active Start: October 09, 2024 End: November 06, 2024 Team Status: Inactive Member Role/Relationship Status Dates Dr. Sal Arceo MD Primary Care Provider Acti ve Start: October 29, 2024 End: October 29, 2024 Dr. Sal Arceo MD Attending Provider Active Start: October 29, 2024 End: October 29, 2024 Dr. Sal Arceo MD Referring Provider Active Start: October 29, 2024 End: October 29, 2024 Team Status: Active Member Role/Relationship Status Dates Dr. Sal Arceo MD Primary Care Provider Acti ve Start: October 29, 2024 Dr. Sal Arceo MD Referring Provider Active Start: October 29, 2024 Dr. Sal Arceo MD Other Provider Active Start: October 29, 2024 Dr. Merritt Sen MD Attending Provider Active S tart: October 29, 2024 Team Status: Inactive Member Role/Relationship Status Dates Dr. Sal Arceo MD Primary Care Provider Acti ve Start: November 18, 2024 End: December 07, 2024 Dr. Sal Arceo MD Attending Provider Active Start: November 18, 2024 End: December 07, 2024 Dr. Sal Arceo MD Referring Provider Active Start: November 18, 2024 End: December 07, 2024 Team Status: Active Member Role/Relationship Status Dates Dr. Sal Arceo MD Primary Care Provider Acti ve Start: November 24, 2024 Dr. Sal Arceo MD Attending Provider Active Start: November 24, 2024 Dr. Sal Arceo MD Referring Provider Active Start: November 24, 2024 Goals (unrecognized section and content) Goals [...] BE BASED ON THE PRIMARY CLINICAL RECORDS. [facility]. provides no warranty or guarantee of the accuracy or completeness of information in this document.
--- NOTE | 2025-03-25 13:46 | NEURO ---
NCS and/or EMG Patient Report Ordering Doctor: Yuan Mack DATE OF SERVICE: 03/25/25 Spenser presents for diagnostic testing of the lower limbs. He reports primarily right sided hip pain radiating to the foot. Electrodiagnostic findings: Peroneal motor nerve demonstrates normal distal latency, amplitude and conduction velocity bilaterally. Normal tibial motor response bilaterally. Normal peroneal and tibial F?waves. Prolonged H?reflex bilaterally. Prolonged sural latency is noted bilaterally. Needle EMG testing was performed the lower limbs. 1+ fibrillations noted in the right tibialis anterior, right peroneus longus and right lower lumbar paraspinals. Motor unit action potentials were normal amplitude and duration. Electrodiagnostic impression: This is an abnormal study. 1. Electrodiagnostic findings suggestive of of an acute right L5 radiculopathy. Recommend correlation with lumbar spine imaging. 2. No electrodiagnostic evidence is noted for peripheral polyneuropathy. Multi Select Codes Neurology Neurology Interp Codes: 16845-51 Musc test done w/n test comp (interp) (2) and 39284-00 Nrv cndj test 9-10 studies (interp)
== END | disposition home or self-care (01) ==
PROVIDERS: PCP Family Medicine; Referring Provider Orthopaedic Surgery Orthopaedic Surgery of the Spine; Visit Provider Orthopaedic Surgery Orthopaedic Surgery of the Spine
DX: M54.16 Radiculopathy, lumbar region (principal)
CPT/HCPCS: 95886; 95911